=== PATIENT | female | born 1940 | race Caucasian/White ===

== ENCOUNTER 2016-05-22 09:01 | Outpatient (RCR) | payer MEDICARE ==
[~2016-05-22 09:01] MED LIST: ALBU0.8322 IH; ALBU8.5H2 INH; ASP81TEC PO; ATEN-158 GT; ATEN50TA PO; ATN25T PO; ATOR40TA PO; CPH250CIP; DCS100C; DIPH50CA PO; DIPH50CA33 PO; ENAL10TA PO; ENLP10T PO; GABA-488 PO; GBPN400C PO; HCTZ12.5T PO; HYDR-2890 PO; HYDR25TA4 PO; IBUP-30 PO; INSHRV SQ; INSU100V SC; INSU100V5 SQ; INSU100V6 SC; INSU100V8 SQ; LEVO250T11 PO; LEVO500T69 PO; OXC10TCR PO; OXC5T; OXYC-191 PO; OXYC1TAB95 PO; POLY17PO23 PO; PREDNISONE; SENN1TAB76 PO; [UNRECOGNIZED DRUG - OTHER] PO
--- OUTSIDE RECORDS SUMMARY | 2016-05-22 09:05 | XMS REPORT | Continuity of Care Document ---
Author Author [facility] Organization [facility] Address Unknown Phone Unavailable Care Team Providers Care German Teacher Name Role Phone Elvin Clay PCP [phone] Source Comments Some departments are not documenting in the electronic medical record. If you do not see the information that you expected, contact Release of Information in the Health Information Management department at [phone] for further assistance in locating additional records.[facility] Active Allergies and Adverse Reactions Allergen Noted Date Severity Reactions Comments Morphine 09/03/2006 Allergy recorded in SMS: Morphine~Reactions: ITCHING Propoxyphene 09/03/2006 Allergy recorded in SMS: DARVON~Reactions: VOMITING Sulfa (Sulfonamide 09/03/2006 Allergy recorded in SMS: Antibiotics) Sulfa~Reactions: HIVES Current Medications Prescription Sig. Disp. Refills Start End Date Status Date atenolol (TENORMIN) 50 mg Take 50 mg by mouth Active tablet daily. hydrochlorothiazide Take 25 mg by mouth Active (HYDRODIURIL) 25 mg daily. tablet enalapril (VASOTEC) 10 mg Take 10 mg by mouth Active tablet daily. diphenhydrAMINE Take 50 mg by mouth every Active (BENADRYL) 50 mg capsule 6 hours as needed. HYDROcodone/acetaminophen Take 1 Tab by mouth every Active (+) (LORTAB, NORCO) 6 hours as needed for 10/325 mg tablet Pain pregabalin (LYRICA) 50 mg Take 50 mg by mouth three Active capsule times daily. insulin aspart (NOVOLOG) Inject 17 Units into Active 100 unit/mL injection area(s) as directed three times daily with meals. insulin detemir(+) Inject 100 Units into Active (LEVEMIR FLEXTOUCH) 100 area(s) as directed daily unit/mL (3 mL) injection with dinner. pen aspirin 81 mg chewable Take 81 mg by mouth Active tablet daily. tiZANidine (ZANAFLEX) 2 Take 1 Tab by mouth three 90 Tab 1 08/28/19 Active mg tablet times daily as needed. 16 ergocalciferol (VITAMIN Take 1 Cap by mouth every 12 Cap 0 09/12/19 Active D-2) 50,000 unit capsule 7 days. 16 cholecalciferol (VITAMIN Take 2 Tabs by mouth 90 Tab 3 09/12/19 Active D-3) 1,000 units tablet daily. 16 Active Problems No known active problems Social History Tobacco Use Types Packs/Day Years Used Date Former Smoker Last Filed Vital Signs Vital Sign Reading Time Taken Blood Pressure 144/72 08/28/2015 11:17 AM CDT Pulse 67 08/28/2015 11:17 AM CDT Temperature 37.2 C (98.9 F) 08/28/2015 11:17 AM CDT Respiratory Rate - - Height 1.657 m (5' 5.25") 08/28/2015 11:17 AM CDT Weight 99.882 kg (220 lb 3.2 oz) 08/28/2015 11:17 AM CDT Body Mass Index 36.38 08/28/2015 11:17 AM CDT Oxygen Saturation - - Plan of Care Health Maintenance Due Date Last Done Comments Physical (Comprehensive) 1948 Exam Pertussis Vaccine 1952 Tetanus Vaccine 1958 Breast Cancer Screening 1981 Colorectal Cancer 1991 Screening Shingles Vaccine 2001 Osteoporosis Screening 2006 Prevnar/Pneumovax (#1) 2006 Influenza Vaccine 02/14/2016 Results from Last 3 Months Not on file
--- NOTE | 2016-05-24 15:33 | ECHOCARDIOGRAPHY REPORT ---
PROCEDURE PHYSICIAN: BASIM MASSEY DATE OF PROCEDURE: 05/22/2016 TWO DIMENSIONAL ECHOCARDIOGRAM REPORT PRIMARY PHYSICIAN: OTHER PHYSICIAN: REFERRING PHYSICIAN: Dr. Clay ORDERING PHYSICIAN: INDICATION FOR THE PROCEDURE: 1. Coronary artery disease. 2. Hypertension. MEASUREMENTS DERIVED VALUES LV DIAMETER (LAX) NORMALS NORMALS Diastolic 3.4 (3.6-5.2) Eject. Fract. 60% (60%+/-6%) Systolic (2.3-3.9) Diastolic Vol. % Shortening (0.22-0.42) Systolic Vol. Aortic Root IVS THICKNESS Diastolic 1.1 (0.6-1.1) LVPW THICKNESS Diastolic 1.1 (0.6-1.1) LA DIAMETER Systolic 4.5 (2.1-3.7) FINDINGS: 1. Technically difficult study. 2. The left ventricle is normal in size. Endocardium was not well visualized in all segments. Systolic function appeared to be normal. Estimated ejection fraction 60%. 3. The left atrium is dilated. No clot or thrombus were seen within the left atrium. 4. The right atrium and right ventricle are normal in size. No clot or thrombus were seen within the right side. 5. Mitral valve was not well visualized. Mild mitral regurgitation noted by color Doppler flow. No mitral valve prolapse. No mitral valve stenosis. 6. Aortic valve leaflets were not well visualized. There is no significant aortic stenosis or regurgitation seen. 7. Tricuspid valve is normal in morphology with mild tricuspid regurgitation noted by color Doppler flow. Doppler across tricuspid valve estimated pulmonary artery pressure of 41+ right atrial pressure. 8. Pulmonic valve is functioning normally. 9. No pericardial effusion. IN CONCLUSION: 1. Technically difficult study. 2. Normal left ventricular size, endocardium was not well visualized in all segments. Overall systolic function appeared to be preserved. Estimated ejection fraction 60%. 3. Dilated left atrium. 4. Mild mitral and tricuspid regurgitation. 5. Pulmonary hypertension with estimated pulmonary artery pressure of 50 mmHg. Job ID: [id number] Dictated Date: 05/24/2016 13:01:47 Retanner Date: 05/24/2016 15:30:18 / ayaz
[2016-07-23] MEDS ORDERED: OMEG-160 PO (07:59)
[2016-07-23] MEDS ORDERED: ASPI-479 PO (07:59)
[2016-07-23] MEDS ORDERED: LOSA25TA21 PO (07:59)
[2016-07-23] MEDS ORDERED: CHOL20003 PO (07:59)
[2016-07-23] MEDS ORDERED: COLE625T9 PO (07:59)
[2016-07-23] MEDS ORDERED: ROSU10TA PO ×2 (10:59→11:39)
== END 2016-08-20 | disposition home or self-care (01) ==
LOC: CARD 09:01
PROVIDERS: ATTEND Internal Medicine Cardiovascular Disease
DX: I49.3 Ventricular premature depolarization (principal); R00.2 Palpitations; E78.2 Mixed hyperlipidemia; I10 Essential (primary) hypertension; G89.4 Chronic pain syndrome; M54.2 Cervicalgia
CPT/HCPCS: 93225; 93226; 93306

== ENCOUNTER → 2016-06-18 | Outpatient (CLI) | payer MEDICARE ==
[~2016-06-18] MED LIST changes: +ASPI-479 PO; +CHOL20003 PO; +COLE625T9 PO; +LOSA25TA21 PO; +OMEG-160 PO; +ROSU10TA PO
--- OUTSIDE RECORDS SUMMARY | 2016-06-18 12:48 | XMS REPORT | Continuity of Care Document ---
Author Author [facility] Organization [facility] Address Unknown Phone Unavailable Care Team Providers Care Telecom Billing Analyst Name Role Phone Elvin Clay PCP [phone] Source Comments Some departments are not documenting in the electronic medical record. If you do not see the information that you expected, contact Release of Information in the Health Information Management department at [phone] for further assistance in locating additional records.[facility] [...]
--- NOTE | 2016-06-18 13:40 | Diagnostic Imaging Report ---
INDICATION: Cough for one week and shortness of breath. PA and lateral chest obtained at 1:08 p.m. FINDINGS: Heart and mediastinal silhouette are unremarkable. There is dextroscoliotic change. There is no acute infiltrate or pneumothorax or pleural fluid. IMPRESSION: No acute process in the chest. Dictated by: Dictated on workstation # [id number]
== END ==
LOC: RAD 12:44
PROVIDERS: ATTEND Nurse Practitioner Family
DX: R06.02 Shortness of breath (principal); R05 Cough
CPT/HCPCS: 71020

== ENCOUNTER 2016-07-23 06:54 | Day surgery (SDC) | payer MEDICARE ==
[~2016-07-23] VITALS: Ht 162.6 cm; Wt 101.6 kg
[2016-07-23] VITALS (11 sets, daily range): BP systolic 109–170; BP diastolic 58–83
[~2016-07-23 06:54] MED LIST changes: -ASPI-479 PO; -CHOL20003 PO; -COLE625T9 PO; -LOSA25TA21 PO; -OMEG-160 PO; -ROSU10TA PO
--- OUTSIDE RECORDS SUMMARY | 2016-07-23 06:57 | XMS REPORT | Continuity of Care Document ---
Author Author [facility] Organization [facility] Address Unknown Phone Unavailable Care Team Providers Care Pickle Sorter Name Role Phone Elvin Clay PCP [phone] Source Comments Some departments are not documenting in the electronic medical record. If you do not see the information that you expected, contact Release of Information in the Health Information Management department at [phone] for further assistance in locating additional records.[facility] Active Allergies and Adverse Reactions [...]
--- OUTSIDE RECORDS SUMMARY | 2016-07-23 06:58 | XMS REPORT | Continuity of Care Document ---
Author Author [facility] Organization [facility] Address Unknown Phone Unavailable Care Team Providers Care Body Make Up Artist Name Role Phone Elvin Clay PCP [phone] Source Comments Some departments are not documenting in the electronic medical record. If you do not see the information that you expected, contact Release of Information in the Health Information Management department at [phone] for further assistance in locating additional records.[facility] Active Allergies and Adverse Reactions Allergen Noted [...]
[2016-07-23] MEDS ORDERED: NS IV 1000 ML 1,000 ML ONE (06:59)
[2016-07-23] MEDS ORDERED: LIDOCAINE 1% INJ 20 ML (XYLOCAINE) VIAL ONE (06:59)
[2016-07-23] MEDS ORDERED: HEParin (CATH LAB) 2,000 ML IV ONE (07:00)
[2016-07-23] MEDS ORDERED: NS IV 1000 ML 1,000 ML IV SCH ×2 (07:30→10:56)
[2016-07-23 07:31] LABS: MEAN PLATELET VOLUME 10.7 FL (7.4-10.4); RED BLOOD COUNT 5.18 10^6/uL (4.35-5.85); RED CELL DISTRIBUTION WIDTH 12.2 % (10.0-14.5); WHITE BLOOD COUNT 8.6 10^3/uL (4.3-11.0)
[2016-07-23 07:42] LABS: PROTHROMBIN TIME PATIENT 12.5 SEC (12.2-14.7)
[2016-07-23 07:46] LABS: BILIRUBIN,URINE NEGATIVE (NEGATIVE); KETONES,URINE NEGATIVE (NEGATIVE); LEUKOCYTE ESTERASE ,URINE 1+ (NEGATIVE); NITRITE,URINE NEGATIVE (NEGATIVE); PH,URINE 6.5 (5-9); PROTEIN,URINE 1+ (NEGATIVE); UROBILINOGEN,URINE 1 MG/DL (NORMAL)
[2016-07-23 07:52] LABS: ALANINE AMINOTRANSFERASE 49 U/L (0-55); ALBUMIN 3.9 G/DL (3.2-4.5); ANION GAP 13 MMOL/L (5-14); ASPARTATE AMINO TRANSFERASE 48 U/L (5-34); BILIRUBIN,TOTAL 0.9 MG/DL (0.1-1.0); BLOOD UREA NITROGEN 12 MG/DL (7-18); BUN/CREATININE RATIO 14; CALCIUM 9.7 MG/DL (8.5-10.1); CARBON DIOXIDE 27 MMOL/L (21-32); CHLORIDE 101 MMOL/L (98-107); CHOLESTEROL 264 MG/DL (< 200); CREATININE SERUM 0.84 MG/DL (0.60-1.30); DIRECT LDL 184 MG/DL (1-129); GFR ESTIMATED > 60; GLUCOSE 158 MG/DL (70-105); POTASSIUM 3.5 MMOL/L (3.6-5.0); SODIUM 141 MMOL/L (135-145); TOTAL PROTEIN 6.7 G/DL (6.4-8.2); TRIGLYCERIDES 228 MG/DL (<150); VLDL CHOLESTEROL 46 MG/DL (5-40)
[2016-07-23] MEDS ORDERED: CHOL20003 PO (07:59)
[2016-07-23] MEDS ORDERED: OMEG-160 PO (07:59)
[2016-07-23] MEDS ORDERED: LOSA25TA21 PO (07:59)
[2016-07-23] MEDS ORDERED: COLE625T9 PO (07:59)
[2016-07-23] MEDS ORDERED: ASPI-479 PO (07:59)
[2016-07-23] MEDS ORDERED: fentaNYL INJECTION 100 MCG/2 ML AMP ONE (08:04)
[2016-07-23] MEDS ORDERED: MIDAZOLAM 5 MG/5 ML (VERSED) VIAL ONE ×2 (08:04→10:31)
--- NOTE | 2016-07-23 08:32 | Diagnostic Imaging Report ---
INDICATION: Atherosclerotic disease. Compared 06/18. FINDINGS: The heart size upper limit, stable. Tortuous and/or ectatic course of the prominent thoracic aortic shadow is unchanged from prior. No vascular congestion. No edema, pneumonia, effusion or pneumothorax. IMPRESSION: Stable chronic findings Dictated by: Dictated on workstation # [id number]
--- NOTE | 2016-07-23 09:23 | Cardiac Procedure Note-CS/ASA ---
Pre-Procedure Note Pre-Op Procedure Note H&P Reviewed The H&P was reviewed, patient examined and no changes noted. Date H&P Reviewed: Jul 23, 2016 Time H&P Reviewed: :22 Conscious Sedation Pre-Proced Time Reviewed: ASA Class: 3 Airway Mallampati Classification: ([place] appropriate class) I. II. III, IV Lungs Heart ASA score ASA 1: a normal healthy patient ASA 2: a patient with a mild systemic disease (mid diabetes, controlled hypertension, obesity x ASA 3: a patient with a severe systemic disease that limits activity (angina , COPD, prior Myocardial infarction) ASA 4: a patient with an incapacitating disease that is a constant threat to life (CHF, renal failure) ASA 5: a moribund patient not expected to survive 24 hrs. (ruptured aneurysm) ASA 6: a declared brain patient whose organs are being harvested. For emergent operations, add the letter E after the classification Grade 3 Sedation Plan: Analgesia, Amnesia, Plan communicated to team members, Discussed options with patient/fam, Discussed risks with patient/fam Note The patient is an appropriate candidate to undergo the planned procedure, sedation, and anesthesia. The patient immediately re-assessed prior to indication. BASIM MASSEY MD Jul 23, 2016 09:23
--- NOTE | 2016-07-23 10:58 | Discharge Inst-Post CATH ---
Discharge Inst-CATH Post Cardiac Cath D/C Inst Follow Up/Plan Appointment with Dr. De La Paz's office in 2-4 weeks CARDIAC CATH DISCHARGE INSTRUCTIONS *Hold Metformin for 48 hours post heart cath. ACTIVITY * Go Home directly and rest. * Limit activity of the leg (or wrist if it was used) for 7 days including aerobics, swimming, jogging, bicycling, etc. * Restrict stair-climbing for 7 days if possible, if not, climb up with your non -cath leg, then bring together on the same step. * Avoid lifting, pushing, pulling or excessive movement of the affected extremity for 7 days. * Customary sexual activity may be resumed after 2 days-use caution not to use a position that strains or causes pain to the affected extremity. * No driving for 24 hours. * NO SMOKING. * Avoid straining for bowel movements for 7 days. * Gentle walking on level ground is allowed. * Returning to work will depend on the type of procedure and the results. Your doctor will discuss this with you. CALL YOUR DOCTOR FOR ANY OF THE FOLLOWING: *If bleeding from the puncture site occurs- Apply gentle pressure to site with clean cloth and call your doctor or EMS. * If a knot or lump forms under the skin, increases in size, or causes pain. * If bruising appears to be worsening or moving further down your leg instead of disappearing. * Temperature above 101 F. CARE OF YOUR GROIN INCISION; * Bruising or purple discoloration of the skin near the puncture site is common. * You may shower only, no bathtub bathing for 5 days. Be careful to avoid slipping as your leg may feel stiff. * If a closure device was used on your femoral artery, please see the attached guide regarding care of the device and your leg. * REMOVE the dressing from your groin the next day after your procedure in the shower. CARE OF YOUR WRIST INCISION; * Bruising or purple discoloration of the skin near the puncture site is common. * You may shower. * DO NOT submerge wrist. * Remove dressing in 24 hours. BASIM DE LA PAZ MD Jul 23, 2016 10:58
[2016-07-23] MEDS ORDERED: ROSU10TA PO ×2 (10:59→11:39)
[2016-07-23] MEDS ORDERED: PATIENT MAY USE OWN MEDS, ALL PO SCH (11:00)
[2016-07-23] MEDS ORDERED: HEParin (CATH LAB) 1,000 ML IV ONE (12:01)
--- NOTE | 2016-07-24 11:55 | DISCHARGE SUMMARY ---
PROCEDURE PHYSICIAN: BASIM MASSEY DATE OF PROCEDURE: 07/23/2016 REFERRING PHYSICIAN: Dr. Shanthi Clay BRIEF HISTORY: Mrs. Angel is a 76-year-old lady with history of hypertension, hyperlipidemia, diabetes mellitus. She had an abnormal stress test with anterior wall ischemia scheduled for left heart catheterization, possible PTCA. PROCEDURE NOTE: After explaining the procedure to the patient, all pros and cons were explained. All questions were answered. The patient signed a consent, then she was placed on the cardiac catheterization laboratory. 6-Russian sheath was placed in the right femoral artery. I advanced a Wesley left catheter to the left coronary system. Multiple views were obtained. I attempted to advance the right coronary Wesley right catheter. I had difficulties with advancing the wire. I was able after manipulation advanced it to the right coronary system. Then I used a long J-wire as an exchange wire. Pigtail catheter advanced to the left ventricular cavity. Left ventriculogram was done. Pullback LV to aorta was done. The aortic arch angiogram was done. Then it was pulled down to the abdominal aorta just above the bifurcation and an abdominal aortogram was done. At the end of the procedure, sheath was removed. Mynx device deployed. Hemostasis achieved. FINDINGS: HEMODYNAMICS: LV pressure 116/12, end diastolic pressure of 12, aortic pressure 116/42, mean of 65. No significant gradient across the aortic valve. ANATOMY: 1. Left main coronary artery is bifurcating to left anterior descending and left circumflex artery with no obstructive disease. 2. Left anterior descending artery is totally occluded at the midportion, getting filled by collateral from the right coronary system. 3. Left circumflex artery: The left circumflex artery is moderate in size. Nondominant artery with no significant obstructive disease. 4. Right coronary artery: The right coronary artery is dominant artery, calcified artery with mild disease, filling the LAD retrograde by collaterals. 5. Left ventriculogram was done in the right anterior oblique position left ventricle is normal in size with normal contractility. Estimated ejection fraction 60%. 6. Aortic arch angiogram: Aortic arch angiogram was done in 2 separate injection. There is hypertensive changes in the thoracic aorta calcification in the right innominate artery, below the origin of the right carotid artery. Left carotid artery has mild calcification. The subclavian artery has mild calcification proximally; did not appear to be obstructive disease. 7. Abdominal aortogram: Abdominal aortogram was done in AP position. Abdominal aorta is normal in size. Hypertensive changes, origin of the renal arteries appeared normal. Superior and inferior mesenteric artery were not well visualized. The bifurcation showed hypertensive changes of tortuosity in the iliac artery, nonobstructive disease. CONCLUSION: 1. Calcified coronary system overall with total occlusion of the mid LAD, reconstructed by collaterals from the right coronary system. Otherwise mild coronary artery disease. 2. Normal left ventricular size with normal contractility anterior wall is julia normally with estimated ejection fraction 60%. 3. Hypertensive changes in the thoracic and abdominal aorta with calcification at the origin of the right carotid artery. 4. Some tortuosity in the iliac artery, no obstructive disease. DISCUSSION AND RECOMMENDATION: Mrs. Angel has significant coronary artery disease. Totally occluded LAD, appeared to have silent [place] in the past. She is currently asymptomatic, although her exercise ability is very limited due to her comorbid condition, I recommend maximizing medical therapy, continue to monitor. Weight loss is recommended. If she becomes symptomatic we will consider referring her for high-risk intervention of the LAD. FINAL DIAGNOSES: 1. Coronary artery disease. 2. Hypertension. 3. Hyperlipidemia. 4. Diabetes mellitus Job ID: [id number] Dictated Date: 07/23/2016 11:05:06 Cotton Agent Date: 07/24/2016 11:51:46/daniel
== END 2016-07-23 15:45 | disposition home or self-care (01) ==
LOC: CATH 06:54
PROVIDERS: ATTEND Internal Medicine Cardiovascular Disease
DX: R94.39 Abnormal result of other cardiovascular function study (principal); I25.10 Atherosclerotic heart disease of native coronary artery without angina pectoris; I25.82 Chronic total occlusion of coronary artery; I25.84 Coronary atherosclerosis due to calcified coronary lesion; I10 Essential (primary) hypertension; E11.9 Type 2 diabetes mellitus without complications; E78.5 Hyperlipidemia, unspecified; I70.0 Atherosclerosis of aorta; Z79.899 Other long term (current) drug therapy; Z79.4 Long term (current) use of insulin
CPT/HCPCS: 36221; 36415; 71010; 75625; 80053; 80061; 81000; 85027; 85610; 87081; 87088; 93005; 93458

== ENCOUNTER 2016-10-27 13:23 | Outpatient (CLI) | payer MEDICARE ==
[~2016-10-27] VITALS: Ht 162.6 cm; Wt 101.6 kg
[~2016-10-27 13:23] MED LIST changes: +ASPI-479 PO; +CHOL20003 PO; +COLE625T9 PO; +LOSA25TA21 PO; +OMEG-160 PO; +ROSU10TA PO
[2016-10-27] MEDS ORDERED: BUPIVACAINE 0.5% 30 ML (SENSORCAINE) VIAL ONE (13:25)
[2016-10-27] MEDS ORDERED: LIDOCAINE 1% INJ 20 ML (XYLOCAINE) VIAL ONE (13:25)
[2016-10-27] MEDS ORDERED: TRIAMCINOLONE ACET (KENALOG-40) 40 MG/ML 1 ML VIAL ONE (13:25)
[2016-10-27 13:43] VITALS: BP 142/61
[2016-10-27 14:26] VITALS: BP 133/68
--- NOTE | 2016-10-27 14:55 | Pain Medicine-Procedure ---
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 The patient was then brought to the procedure room and placed in the prone position. A time out was performed. The back was prepped with antiseptic solution and under fluoroscopic guidance the patient's sacral ala on the right side was identified. 2 mL's of 1% Lidocaine was used to anesthetized the skin over the sacral ala and a 22 gauge 3.5 inch needle was advanced towards the target until bone was contacted. The junction of the superior articular processes and the transverse processes at L3-L5 on the right were then identified and the skin overlying these targets was anesthetized with 1% lidocaine. Next a 22 gauge 3.5 inch needle was inserted through the skin to the level of the lumbar medial branches under radiographic guidance. Next, after negative aspiration, a mixture of 2 mL's Bupivacaine 0.5% and 80 mg Kenalog was injected in 4 equal aliquots. CSF was negative, Paresthesia was negative, Heme was negative. All needles were then flushed with 1% lidocaine and then removed. Attention was then directed to the right sacroiliac joint which was identified under fluoroscopic guidance. The skin overlying the posterior inferior one third of the sacroiliac joint was anesthetized with 1 percent lidocaine and a 22 -gauge 3-1/2 inch needle was inserted and advanced into the joint. Following negative aspiration a total of 40 mg of Kenalog and 2 mL of 0.25 percent bupivacaine was injected. Needle was flushed with lidocaine and removed. Sterile bandage was applied. Patient tolerated the procedures well with no apparent complications. Complications None GALE GREGORY MD October 27, 2016 2:55 pm
== END 2016-10-27 14:28 | disposition home or self-care (01) ==
LOC: CARD 13:23
PROVIDERS: ATTEND Pain Medicine Pain Medicine
DX: M53.3 Sacrococcygeal disorders, not elsewhere classified (principal); M47.816 Spondylosis without myelopathy or radiculopathy, lumbar region; G89.4 Chronic pain syndrome; Z79.4 Long term (current) use of insulin
CPT/HCPCS: 27096; 64493; 64494; 64495

== ENCOUNTER → 2016-11-12 | Outpatient (CLI) | payer MEDICARE ==
[~2016-11-12] MED LIST changes: +RT-ALBUTEROL SULF 2.5 MG/3 ML PRE-MIX VIAL IH ONE
== END ==
LOC: RT 13:27
PROVIDERS: ATTEND Nurse Practitioner Family
DX: J45.909 Unspecified asthma, uncomplicated (principal)
CPT/HCPCS: 94060; 94640; 94726; 94729

== ENCOUNTER 2017-08-03 05:39 | Outpatient (CLI) | payer MEDICARE ==
[~2017-08-03] VITALS: Ht 162.6 cm; Wt 101.6 kg
[~2017-08-03 05:39] MED LIST changes: -RT-ALBUTEROL SULF 2.5 MG/3 ML PRE-MIX VIAL IH ONE
[2017-08-03] MEDS ORDERED: SPIR25TA3 PO (16:45)
[2017-08-03] MEDS ORDERED: ALBU2.5V4 IH (16:45)
[2017-08-03] MEDS ORDERED: ATEN50TA PO (16:45)
[2017-08-03] MEDS ORDERED: HYDR-3820 PO (16:45)
[2017-08-03] MEDS ORDERED: DIPH50CA PO (16:45)
[2017-08-03] MEDS ORDERED: CHOL10003 PO (16:45)
[2017-08-03] MEDS ORDERED: CETI10TA17 PO (16:45)
[2017-08-03] MEDS ORDERED: ROSU10TA26 PO (16:45)
[2017-08-03] MEDS ORDERED: RANO10003 PO (16:45)
[2017-08-03] MEDS ORDERED: AMLO5TAB2 PO (16:45)
[2017-08-03] MEDS ORDERED: FURO20TA4 PO (16:45)
[2017-08-03] MEDS ORDERED: INSU100I29 SQ (16:45)
[2017-08-03] MEDS ORDERED: MONT10TA24 PO (16:45)
[2017-08-03] MEDS ORDERED: INSU100V16 SQ (16:45)
== END 2017-08-03 16:50 ==
LOC: PREOP 05:39
PROVIDERS: ATTEND Specialist
DX: Z01.818 Encounter for other preprocedural examination (principal); H26.9 Unspecified cataract

== ENCOUNTER 2017-08-07 08:18 | Day surgery (SDC) | payer MEDICARE ==
[~2017-08-07] VITALS: Ht 162.6 cm; Wt 101.6 kg
[~2017-08-07 08:18] MED LIST changes: +ALBU2.5V4 IH; +AMLO5TAB2 PO; +CETI10TA17 PO; +CHOL10003 PO; +FURO20TA4 PO; +HYDR-3820 PO; +INSU100I29 SQ; +INSU100V16 SQ; +MONT10TA24 PO; +RANO10003 PO; +ROSU10TA26 PO; +SPIR25TA3 PO
--- OUTSIDE RECORDS SUMMARY | 2017-08-07 08:21 | XMS REPORT | Continuity of Care Document ---
Author Author [facility] Organization [facility] Address Unknown Phone Unavailable Care Team Providers Care Cupola Patcher Helper Name Role Phone [employer] Unavailable Unavailable Problems Medications Allergies, Adverse Reactions, Alerts Immunizations Results Vital Signs Encounters Location Location Details Encounter Type Encounter Number Reason For Visit Attending Provider ADM Date DC Date Status Source OUTPATIENT [id number] [facility] 01/06/2017 01/06/2017 Active [facility] EXT RECOVERY [id number] [facility] 02/11/2017 02/12/2017 Active [facility] EXT RECOVERY [id number] [facility] 03/23/2017 03/24/2017 Active [facility] OUTPATIENT [id number] [facility] 05/19/2017 Active [facility] OUTPATIENT [id number] [facility] 06/09/2017 Active [facility] O Active [facility] Procedures Plan of Care Social History Assessment and Plan Family History Advance Directives Functional Status
--- OUTSIDE RECORDS SUMMARY | 2017-08-07 08:22 | XMS REPORT | Clinical Summary ---
Author Author [facility] Organization [facility] Address Unknown Phone Unavailable Care Team Providers Care Tissue Specialist Name Role Phone Matthew Burch MD Unavailable Shanthi Clay MD PCP Keya De La Paz MD 21 Source Comments Some departments are not documenting in the electronic medical record. If you do not see the information that you expected, contact Release of Information in the Health Information Management department at [phone] for further assistance in locating additional records.[facility] Allergies Active Allergy Reactions Severity Noted Date Comments Erythromycin UNKNOWN Low 12/30/2016 Morphine 09/03/2006 Allergy recorded in SMS: Morphine~Reactions: ITCHING Propoxyphene 09/03/2006 Allergy recorded in SMS: DARVON~Reactions: VOMITING Sulfa (Sulfonamide 09/03/2006 Allergy recorded in SMS: Antibiotics) Sulfa~Reactions: HIVES Current Medications Prescription Sig. Disp. Refills Start End Date Status Date atenolol (TENORMIN) 50 mg Take 50 mg by mouth Active tablet daily. hydrochlorothiazide Take 25 mg by mouth Active (HYDRODIURIL) 25 mg daily. tablet diphenhydrAMINE Take 50 mg by mouth every Active (BENADRYL) 50 mg capsule 6 hours as needed. insulin aspart (NOVOLOG) Inject 17 Units into Active 100 unit/mL injection area(s) as directed three times daily with meals. insulin detemir(+) Inject under the skin Active (LEVEMIR FLEXTOUCH) 100 twice daily. Inject 10 unit/mL (3 mL) injection units every morning and pen 50 units every evening aspirin 81 mg chewable Take 81 mg by mouth Active tablet daily. cholecalciferol (VITAMIN Take 2 Tabs by mouth 90 Tab 3 09/12/19 Active D-3) 1,000 units tablet daily. 16 HYDROcodone/acetaminophen Take 1 Tab by mouth twice Active (+) (NORCO) 10/325 mg daily Indications: PAIN tabletIndications: PAIN rosuvastatin (CRESTOR) 10 Take 10 mg by mouth Active mg tablet daily. montelukast (SINGULAIR) Take 10 mg by mouth as Active 10 mg tablet Needed. cetirizine (ZYRTEC) 10 mg Take 10 mg by mouth as Active tablet Needed. furosemide (LASIX) 20 mg Take 20 mg by mouth every Active tablet morning. nitroglycerin (NITROSTAT) Place 0.4 mg under tongue Active 0.4 mg tablet every 5 minutes as needed for Chest Pain. Max of 3 tablets, call 911. albuterol 0.083% Inhale 1 Vial solution by Active (PROVENTIL; VENTOLIN) 2.5 nebulizer as directed mg /3 mL (0.083 %) every 6 hours as needed nebulizer solution for Wheezing or Shortness of Breath. [place]-3 Acid Ethyl Esters Take 1 g by mouth three Active 1 gram cap times daily. amLODIPine (NORVASC) 5 mg Take 5 mg by mouth daily. Active tablet losartan (COZAAR) 25 mg Take 25 mg by mouth Active tablet daily. ranolazine ER (RANEXA) Take 1 tablet by mouth 180 tablet 3 03/24/20 Active 1,000 mg twice daily. 17 tabletIndications: Coronary artery disease involving [place] coronary artery of [place] heart, angina presence unspecified albuterol (VENTOLIN HFA) Inhale 2 puffs by mouth Active 90 mcg/actuation inhaler into the lungs every 6 hours as needed for Wheezing or Shortness of Breath. Shake well before use. spironolactone Take 1 tablet by mouth 90 tablet 3 06/09/20 Active (ALDACTONE) 25 mg tablet daily. Take with food. 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 Otherwise mild coronary artery disease. Normal LV size with normal contractility anterior wall is julia normally with estimated EF of 60%. Hypertensive changes in the thoracic and abdominal aorta with calcification at the origin of the right carotid artery. Some tortuosity in the iliac artery, no obstructive disease. 05/28/16: Lexiscan myoview stress test ([facility]ia [facility]) - breast attenuation affecting the quality of the images with mild ischemia at the mid to apical anterior wall. Normal LV size with normal contractility. Calculated EF 65%. 01/07/2017 unsuccessful attempt at BONDING MOLDER of the LAD with antegrade approach. returning feb 09 to attempt retrograde approach 03/23/17 - unsuccessful attempt at PCI of BONDING MOLDER of LAD. Started on Ranexa Essential hypertension Hyperlipidemia Insulin dependent diabetes mellitus (HCC) Encounters Date Type Specialty Care Team Description 07/03/2017 Documentation Cardiology Tina Toscano RN Labs Only (BMP) 06/09/2017 Office Visit Cardiology Dakota Contreras MD Cardiac Eval (2 month hosp. f/u Cardiac Catheterization, PCI of BONDING MOLDER of LAD) 06/09/2017 Telephone Cardiology Tina Toscano RN Lab Request ( repeat BMP due 06/16 - faxed order to [facility] in [place], [place]) from Last 3 Months Social History Tobacco Use Types Packs/Day Years Used Date Former Smoker Cigarettes 06/15/1960 - 06/15/1987 Smokeless Tobacco: Never Used Sex Assigned at Date Recorded Not on file Last Filed Vital Signs Vital Sign Reading Time Taken Blood Pressure 108/58 06/09/2017 10:30 AM SHIRT FINISHER Pulse 59 06/09/2017 10:30 AM SHIRT FINISHER Temperature 36.8 C (98.2 F) 03/24/2017 4:00 AM CDT Respiratory Rate - - Oxygen Saturation 95% 03/24/2017 6:00 AM CDT Inhaled Oxygen - - Concentration Weight 101.6 kg (224 lb) 06/09/2017 10:30 AM SHIRT FINISHER Height 162.6 cm (5' 4") 06/09/2017 10:30 AM SHIRT FINISHER Body Mass Index 38.45 06/09/2017 10:30 AM SHIRT FINISHER Plan of Treatment Health Maintenance Due Date Last Done Comments PHYSICAL (COMPREHENSIVE) 1948 EXAM PERTUSSIS VACCINE 1952 TETANUS VACCINE 1958 DILATED EYE EXAM 1959 FOOT EXAM 1959 HBA1C 1959 MICROALBUMIN 1959 COLORECTAL CANCER 1991 SCREENING SHINGLES VACCINE 2001 OSTEOPOROSIS SCREENING 2006 PREVNAR/PNEUMOVAX (#1) 2006 INFLUENZA VACCINE 01/13/2017 Results * BASIC METABOLIC PANEL (06/26/2017) Component Value Ref Range Sodium 135 Potassium 3.8 Chloride 95 CO2 33.0 Blood Urea Nitrogen 17 Creatinine 0.9 Glucose 279 (H) Calcium 9.5 eGFR Non 65 eGFR Anion Gap 11 Specimen Performing Laboratory Blood [facility] [place] [address] , [address] [place] [address] from Last 3 Months
--- OUTSIDE RECORDS SUMMARY | 2017-08-07 08:22 | XMS REPORT | Encounter Summary ---
Author Author [facility] Organization [facility] Address Unknown Phone Unavailable Care Team Providers Care Blender Machine Operator Name Role Phone Matthew Burch MD Unavailable Shanthi Clay MD PCP Keya De La Paz MD 21 Reason for Visit * Reason Comments Cardiac Eval 2 month hosp. f/u Cardiac Catheterization, PCI of RUBBER AND POUNDER of LAD Encounter Details Date Type Department Care Team Description 06/09/2017 Office Visit [facility] Cardiology Dakota Contreras MD Cardiac Eval (2 month [address] hosp[address] f/u Cardiac [address] Catheterization, [place] [address] [place] [address] RUBBER AND POUNDER of LAD) [phone] Social History Tobacco Use Types Packs/Day Years Used Date Former Smoker Cigarettes 06/15/1960 - 06/15/1987 Smokeless Tobacco: Never Used Sex Assigned at Date Recorded Not on file as of this encounter Last Filed Vital Signs Vital Sign Reading Time Taken Blood Pressure 108/58 06/09/2017 10:30 AM FUEL PILOT ENGINEER Pulse 59 06/09/2017 10:30 AM FUEL PILOT ENGINEER Temperature - - Respiratory Rate - - Oxygen Saturation - - Inhaled Oxygen - - Concentration Weight 101.6 kg (224 lb) 06/09/2017 10:30 AM FUEL PILOT ENGINEER Height 162.6 cm (5' 4") 06/09/2017 10:30 AM FUEL PILOT ENGINEER Body Mass Index 38.45 06/09/2017 10:30 AM FUEL PILOT ENGINEER in this encounter Instructions * Patient Instructions - Caitlyn Downing APRN-C - 06/09/2017 11:00 AM FUEL PILOT ENGINEER Start taking spironolactone 25 mg daily. Stop taking potassium Check blood work in 1 week. in this encounter Progress Notes * Dakota Contreras MD - 06/09/2017 11:00 AM FUEL PILOT ENGINEER Formatting of this note may be different from the original. Date of Service: 06/09/2017 aSsha Angel is a [address] HPI [address] Contreras and I had the pleasure of seeing Sasha Angel for post hospital cardiac follow-up. She is a 76-year-old with history of coronary disease. She has a chronic total occlusion of the right coronary artery. She was referred by an outside diagnostic radiologic technologist for intervention. She has had 3 attempts at revascularization, all of which have been unsuccessful. Her last admission was on March 23. At discharge she was initiated on Ranexa and is now on 1000mg twice a day. She states her anginal symptoms have improved dramatically however have not resolved completely. She continues have some shortness of breath and wheezing that is unchanged. She has also noticed an increase in edema and thinks she may need further diuresis however she is having trouble taking potassium supplementation with the Lasix. She had one episode of hypotension and bradycardia when she got up out of bed one night. She also noted that her blood sugar was low at that time. She has not had any recurrent symptoms. She is getting ready to restart physical therapy. Vitals: 06/09/17 1030 BP: 108/58 Pulse: 59 Weight: 101.6 kg (224 lb) Height: 1.626 m (5' 4") Body mass index is 38.45 kg/(m^2). 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 Otherwise mild coronary artery disease. Normal LV size with normal contractility anterior wall is julai normally with estimated EF of 60%. Hypertensive [...] Calculated EF 65%. 01/07/2017 unsuccessful attempt at RUBBER AND POUNDER of the LAD with antegrade approach. returning feb 09 to attempt retrograde approach 03/23/17 - unsuccessful attempt at PCI of RUBBER AND POUNDER of LAD. Started on Ranexa Review of Systems Constitution: Negative. HENT: Negative. Eyes: Negative. Cardiovascular: Negative. Respiratory: Negative. Endocrine: Negative. Hematologic/Lymphatic: Negative. Skin: Negative. Musculoskeletal: Negative. Gastrointestinal: Negative. Genitourinary: Negative. Neurological: Negative. Psychiatric/Behavioral: Negative. Allergic/Immunologic: Negative. Physical Exam General Appearance: no acute distress Skin: warm & intact HEENT: unremarkable Neck Veins: neck veins are flat & not distended Carotid Arteries: no bruits Chest Inspection: chest is normal in appearance Auscultation/Percussion: lungs clear to auscultation, no rales, rhonchi, or wheezing Cardiac Rhythm: regular rhythm & normal rate Cardiac Auscultation: Normal S1 & S2, no S3 or S4, no rub Murmurs: no cardiac murmurs Extremities: 1+ bilateral lower extremity edema; 2+ symmetric distal pulses Abdominal Exam: soft, non-tender, no masses, bowel sounds normal Liver & Spleen: no organomegaly Neurologic Exam: oriented to time, place and person; no focal neurologic deficits Psychiatric: Normal mood and affect. Behavior is normal. Judgment and thought content normal. Problems Addressed Today Encounter Diagnoses Name Primary? 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 Angel has a following issues: 1. Coronary artery disease. She has a chronic occlusion of the right coronary artery. She has had attempted revascularization on 3 occasions, all of which have been unsuccessful. She has had symptomatic improvement with Ranexa therefore we will plan on continuing medical therapy at this point. She also needs to increase her activity and it plans to get restarted in physical therapy. She needs ongoing risk factor modification. 2. Edema. She needs an increase in her diuretic but she has not tolerated potassium supplementation. I will add Spironolactone 25 mg daily in addition to Lasix 20 mg daily and she can stop the potassium. We will check a BMP in a week. She should continue to follow with her outside diagnostic radiologic technologist and we will see her on an as-needed basis. Thank you for allowing us to participate in care of this pleasant individual. If you have questions or concerns please not hesitate to contact us. SHREYA Alexandra Sasha was seen in the office today for follow-up and states that overall she has been feeling better. She has quite a bit less discomfort in her chest since initiating Ranexa. We did spend quite a bit of time reviewing her last cardiac catheterization as well as discussing the current pain plan. We will plan to refer her to cardiac rehab to increase her activity make some medication adjustments. Physical Exam GEN: alert and oriented, no acute distress HEENT: unremarkable, EOMI, PERRL CHEST: Clear to auscultation bilaterally without focal rales, wheezes or rhonchi CV: Reg rhythm, nml rate; nml S1 & S2, no S3 or S4; no rub; no murmurs ABD: soft, nontender, BS+, no masses or bruits, no organomegaly EXT: 1+PE bilaterallhy, 2+ distal pulses NEURO: nonfocal Mood and Affect: appropriate She is going to be following back with Dr. De La Paz her primary diagnostic radiologic technologist. We will plan to see her back as needed. Thanks for allowing us to participate in her care. Current Medications (including today's revisions) albuterol (VENTOLIN HFA) 90 mcg/actuation inhaler Inhale 2 puffs by mouth into the lungs every 6 hours as needed for Wheezing or Shortness of Breath. Shake well before use. albuterol 0.083% (PROVENTIL; VENTOLIN) 2.5 mg /3 mL (0.083 %) nebulizer solution Inhale 1 Vial solution by nebulizer as directed every 6 hours as needed for Wheezing or Shortness of Breath. amLODIPine (NORVASC) 5 mg tablet Take 5 mg by mouth daily. aspirin 81 mg chewable tablet Take 81 mg by mouth daily. atenolol (TENORMIN) 50 mg tablet Take 50 mg by mouth daily. cetirizine (ZYRTEC) 10 mg tablet Take 10 mg by mouth as Needed. cholecalciferol (VITAMIN D-3) 1,000 units tablet Take 2 Tabs by mouth daily. diphenhydrAMINE (BENADRYL) 50 mg capsule Take 50 mg by mouth every 6 hours as needed. furosemide (LASIX) 20 mg tablet Take 20 mg by mouth every morning. hydrochlorothiazide (HYDRODIURIL) 25 mg tablet Take 25 mg by mouth daily. HYDROcodone/acetaminophen(+) (NORCO) 10/325 mg tablet Take 1 Tab by mouth twice daily Indications: PAIN insulin aspart (NOVOLOG) 100 unit/mL injection Inject 17 Units into area(s) as directed three times daily with meals. insulin detemir(+) (LEVEMIR FLEXTOUCH) 100 unit/mL (3 mL) injection pen Inject under the skin twice daily. Inject 10 units every morning and 50 units every evening losartan (COZAAR) 25 mg tablet Take 25 mg by mouth daily. montelukast (SINGULAIR) 10 mg tablet Take 10 mg by mouth as Needed. nitroglycerin (NITROSTAT) 0.[address] 0.4 mg under tongue every 5 minutes as needed for Chest Pain. Max of 3 tablets, call 911. [place]-3 Acid Ethyl Esters 1 gram cap Take 1 g by mouth three times daily. ranolazine ER (RANEXA) 1,000 mg tablet Take 1 tablet by mouth twice daily. rosuvastatin (CRESTOR) 10 mg tablet Take 10 mg by mouth daily. spironolactone (ALDACTONE) 25 mg tablet Take 1 tablet by mouth daily. Take with food. 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
--- OUTSIDE RECORDS SUMMARY | 2017-08-07 08:22 | XMS REPORT | Encounter Summary ---
Author Author [facility] Organization [facility] Address Unknown Phone Unavailable Care Team Providers Care Soils Analyst Name Role Phone Matthew Burch MD Unavailable Shanthi Clay MD PCP Keya De La Paz MD 21 Reason for Visit * Reason Comments Labs Only BMP Encounter Details Date Type Department Care Team Description 07/03/2017 Documentation [facility] Cardiology Tina Toscano RN Labs Only (BMP) [address] [place] [address] Social History Tobacco Use Types Packs/Day Years Used Date Former Smoker Cigarettes 06/15/1960 - 06/15/1987 Smokeless Tobacco: Never Used Sex Assigned at Date Recorded Not on file as of this encounter Plan of Treatment Not on fileas of this encounter Results * BASIC METABOLIC PANEL (06/26/2017) Component Value Ref Range Sodium 135 Potassium 3.8 Chloride 95 CO2 33.0 Blood Urea Nitrogen 17 Creatinine 0.9 Glucose 279 (H) Calcium 9.5 eGFR Non 65 eGFR Anion Gap 11 Specimen Performing Laboratory Blood [facility] [place] [address] [facility] , [address] [place] [address] in this encounter Visit Diagnoses Diagnosis Essential hypertension Unspecified essential hypertension
--- OUTSIDE RECORDS SUMMARY | 2017-08-07 08:22 | XMS REPORT | Encounter Summary ---
Author Author [facility] Organization [facility] Address Unknown Phone Unavailable Care Team Providers Care Physical Therapy Assistant Name Role Phone Matthew Burch MD Unavailable Shanthi Clay MD PCP Keya De La Paz MD 21 Reason for Visit * Reason Comments Lab Request repeat BMP due 2 - faxed order to [facility] in [place], [place] Encounter Details Date Type Department Care Team Description 06/09/2017 Telephone [facility] Cardiology Tina Toscano RN Lab Request (repeat BMP [address] due 06/16 - faxed order to [facility] [address] [facility] in [place], [place]) [place] [address] Social History Tobacco Use Types Packs/Day Years Used Date Former Smoker Cigarettes 06/15/1960 - 06/15/1987 Smokeless Tobacco: Never Used Sex Assigned at Date Recorded Not on file as of this encounter Miscellaneous Notes * Telephone Encounter - Tina Toscano RN - 06/09/2017 12:21 PM FAMILY CONSUMER SCIENCE TEACHER BMP order faxed to [facility] in [place], [place] - due / (one week after starting spironolactone). . Fax confirmation received. in this encounter Plan of Treatment Not on fileas of this encounter Visit Diagnoses Not on filein this encounter
--- OUTSIDE RECORDS SUMMARY | 2017-08-07 08:25 | XMS REPORT | CCD ---
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 Role Phone PP Unavailable CCM Unavailable Summary Purpose Interface Exchange Insurance Providers Payer name Policy type / Coverage type Covered libertarian ID Effective Begin Date Effective End Date WPS Medicare Part B Medicare Part B [id number] Unknown Unknown AARP Medicare Part B [id number] Unknown Unknown Family history Mother Diagnosis Age At Onset No Family Disease Entered N/A Social History Social History Element Codes Description Effective Dates Marital status Unknown Tonie 12/21/2014 Number of children Unknown 1 12/21/2014 Employment Unknown Retired 12/21/[address]: 6961418 Quit over 10 years ago 1988 12/21/2014 Allergies, Adverse Reactions, Alerts Substance Reaction Codes Entered Date Inactivated Date Status MORPHINE SULFATE pruritis RxNorm: 7052 12/21/2014 No Inactive Date Active Past Medical History Illness Codes Condition Status Onset Date Resolved Date Essential (primary) hypertension ICD-9: 401.1 ICD-10: I10 Active 08/13/2016 Unknown Other allergic rhinitis ICD-9: 477.8 ICD-10: J30.89 Active 06/17/2016 Unknown Type 2 diabetes mellitus with hyperglycemia ICD-9: 250.00 ICD-10: E11.65 Active 12/20/2014 Unknown Mixed hyperlipidemia ICD-9: 272.2 ICD-10: E78.2 Active 11/14/2015 Unknown Cough ICD-9: 786.2 ICD-10: R05 Active 06/24/2016 Unknown Essential (primary) hypertension ICD-9: 401.9 ICD-10: I10 Active 12/20/2014 Unknown Acute laryngopharyngitis ICD-9: 465.0 ICD-10: J06.0 Active 06/17/2016 Unknown Acute nasopharyngitis [common cold] ICD-9: 460 ICD-10: J00 Active 05/06/2016 Unknown Encounter for immunization ICD-9: V04.81 ICD-10: Z23 Active 02/27/2016 Unknown Spontaneous ecchymoses ICD-9: 782.7 ICD-10: R23.3 Active 02/27/2016 Unknown Acute recurrent maxillary sinusitis ICD-9: 461.0 ICD-10: J01.01 Active 01/27/2016 Unknown Dysuria ICD-9: 788.1 ICD-10: R30.0 Active 12/12/2015 Unknown Urinary tract infection, site not specified ICD-9: 599.0 ICD-10: N39.0 Active 11/05/2015 Unknown Acute maxillary sinusitis, unspecified ICD-9: 461.0 ICD-10: J01.00 Active 07/16/2015 Unknown Acute bronchitis, unspecified ICD-9: 466.0 ICD-10: J20.9 Active 04/18/2015 Unknown Diabetes Unknown Active 12/21/2014 Unknown Hypertension Unknown Active 12/21/2014 Unknown DIABETES TYPE II ICD-9 : 250.00 Active 12/20/2014 Unknown ESSENTIAL HYPERTENSION ICD-9: 401.9 Active 12/20/2014 Unknown Peripheral neuropathy ICD-9: 356.9 Active 12/20/2014 Unknown Problems Condition Codes Effective Dates Condition Status Essential (primary) hypertension ICD-9: 401.1 ICD-10: I10 08/13/2016 Active Other allergic rhinitis ICD-9: 477.8 ICD-10: J30.89 06/17/2016 Active Type 2 diabetes mellitus with hyperglycemia ICD-9: 250.00 ICD-10: E11.65 12/20/2014 Active Mixed hyperlipidemia ICD-9: 272.2 ICD-10: E78.2 11/14/2015 Active Cough ICD-9: 786.2 ICD-10: R05 06/24/2016 Active Essential (primary) hypertension ICD-9: 401.9 ICD-10: I10 12/20/2014 Active Acute laryngopharyngitis ICD-9: 465.0 ICD-10: J06.0 06/17/2016 Active Acute nasopharyngitis [common cold] ICD-9: 460 ICD-10: J00 05/06/2016 Active Encounter for immunization ICD-9: V04.81 ICD-10: Z23 02/27/2016 Active Spontaneous ecchymoses ICD-9: 782.7 ICD-10: R23.3 02/27/2016 Active Acute recurrent maxillary sinusitis ICD-9: 461.0 ICD-10: J01.01 01/27/2016 Active Dysuria ICD-9: 788.1 ICD-10: R30.0 12/12/2015 Active Urinary tract infection, site not specified ICD-9: 599.0 ICD-10: N39.0 11/05/2015 Active Acute maxillary sinusitis, unspecified ICD-9: 461.0 ICD-10: J01.00 07/16/2015 Active Acute bronchitis, unspecified ICD-9: 466.0 ICD-10: J20.9 04/18/2015 Active Diabetes Unknown 12/21/2014 Active Hypertension Unknown 12/21/2014 Active DIABETES TYPE II ICD-9 : 250.00 12/20/2014 Active ESSENTIAL HYPERTENSION ICD-9: 401.9 12/20/2014 Active Peripheral neuropathy ICD-9: 356.9 12/20/2014 Active Medications Medication Codes Instructions Start Date Stop Date Status Fill Instructions Levemir 100 unit/mL subcutaneous solution RxNorm: 731070 10 Unit(s) SQ QAM 07/27/2017 No Stop Date Active Levemir 100 unit/mL subcutaneous solution RxNorm: 961392 50 Unit(s) SQ QHS 07/27/2017 No Stop Date Active hydrocodone 10 mg-acetaminophen 325 mg tablet RxNorm: 620859 1 Tablet(s) PO Q6 as needed 07/10/2017 08/08/2017 Active hydrochlorothiazide 25 mg tablet RxNorm: 557821 Tablet(s) TAKE 1 TABLET BY MOUTH DAILY 06/11/2017 12/07/2017 Active syringe (disposable) RxNorm: Miscellaneous 06/02/2017 11/23/2018 Active 0.5ml/30g/ 12.7mm BD albuterol sulfate 2.5 mg/3 mL (0.083 %) solution for nebulization RxNorm: 318203 3 Milliliter(s) INH QID as needed 05/22/2017 No Stop Date Active Keflex 500 mg capsule RxNorm: 865103 1 Capsule(s) PO TID 201605/18/2017 Inactive Keflex 500 mg capsule RxNorm: 527834 1 Capsule(s) PO TID 201605/11/2017 Inactive Phenergan with Codeine Syrup RxNorm: 5 to 10 ml PO QID as needed cough 05/12/2017 05/18/2017 Inactive hydrocodone 10 mg-acetaminophen 325 mg tablet RxNorm: 127328 1 Tablet(s) PO Q6 as needed 05/05/2017 06/03/2017 Inactive amlodipine 5 mg tablet RxNorm: 040513 TAKE ONE TABLET BY MOUTH DAILY AT BEDTIME 04/03/2017 09/29/2017 Active Generic For:NORVASC 5 MG TABLET 04/03/2017 9:17:21 AM meclizine 12.5 mg tablet RxNorm: 225488 1 Tablet(s) PO TID as needed 03/10/2017 03/19/2017 Inactive meclizine 12.5 mg tablet RxNorm: 595629 1 Tablet(s) PO TID as needed 03/10/2017 03/09/2017 Inactive atenolol 50 mg tablet RxNorm: 666806 1 Tablet(s) PO daily 201607/03/2017 Inactive Novolog 100 unit/mL subcutaneous solution RxNorm: 142910 INJECT 17 UNITS SUBCUTANEOUSLY THREE TIMES DAILY BEFORE MEALS -MAY USE EXTRA 10 UNITS THREE TIMES DAILY IF NEEDED 03/05/20172017 Active 03/05/2017 4:06:58 PM hydrocodone 10 mg-acetaminophen 325 mg tablet RxNorm: 830542 1 Tablet(s) PO Q6 as needed 03/05/2017 05/04/2017 Inactive losartan 25 mg tablet RxNorm: 554156 1 Tablet(s) PO daily 201609/23/2017 Active prednisone 20 mg tablet RxNorm: 016216 3 Tablet(s) PO daily 03/02/2017 Inactive Augmentin 500 mg-125 mg tablet RxNorm: 651812 1 Tablet(s) PO TID 02/26/2017 03/04/2017 Inactive take probiotic BID hydrochlorothiazide 25 mg tablet RxNorm: 693947 TAKE 1 TABLET BY MOUTH DAILY 02/06/2017 06/05/2017 Inactive Generic For:HYDRODIURIL 25 MG TABLET 02/06/2017 9: 16:31 AM doxycycline hyclate 100 mg tablet RxNorm: 042556 1 Tablet(s) PO BID 02/03/2017 02/12/2017 Inactive ProAir HFA 90 mcg/actuation aerosol inhaler RxNorm: 640376 INHALE TWO PUFFS BY MOUTH EVERY 4 TO 6 HOURS NEEDED 01/29/2017 05/08/2017 Inactive gemfibrozil 600 mg tablet RxNorm: 624678 1 Tablet(s) PO BID 12/19/2017 Active 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 Benadryl 25 mg capsule RxNorm: 0725995 TAKE 2 CAPSULES BY MOUTH DIRECTED 12/24/2016 06/21/2017 Inactive 12/24/2016 10:18:24 AM WelChol 625 mg tablet RxNorm: 146836 TAKE 3 TABLETS BY MOUTH DAILY 12/04/2016 12/24/2016 Inactive 12/04/2016 1:23:00 PM amlodipine 5 mg tablet RxNorm: 971187 1 Tablet(s) PO QHS 201603/26/2017 Inactive hydrochlorothiazide 25 mg tablet RxNorm: 826756 TAKE 1 TABLET BY MOUTH DAILY 10/07/2016 02/03/2017 Inactive Generic For:HYDRODIURIL 25 MG TABLET 10/06/2016 10: 03:14 AM Levaquin 500 mg tablet RxNorm: 977654 1 Tablet(s) PO daily 04/201709/29/2016 Inactive prednisone 20 mg tablet RxNorm: 330991 3 Tablet(s) PO daily 06/201608/17/2016 Inactive Kenalog 40 mg/mL suspension for injection RxNorm: 6784455 Milliliter(s) Inj 08/13/2016 08/13/2016 Inactive albuterol sulfate 2.5 mg/3 mL (0.083 %) solution for nebulization RxNorm: 797503 3 Milliliter(s) INH QID as needed 08/13/2016 05/21/2017 Inactive Levemir 100 unit/mL subcutaneous solution RxNorm: 646688 50 Unit(s) SQ QHS 07/23/2016 No Stop Date Active amlodipine 5 mg tablet RxNorm: 933142 1 Tablet(s) PO QHS 201611/19/2016 Inactive Levemir 100 unit/mL subcutaneous solution RxNorm: 040008 50 Unit(s) SQ QHS 07/23/2016 07/22/2016 Inactive Levemir 100 unit/mL subcutaneous solution RxNorm: 218874 10 Unit(s) SQ QAM 07/23/2016 07/26/2017 Inactive amlodipine 5 mg tablet RxNorm: 609026 1 Tablet(s) PO QHS 201607/22/2016 Inactive Levemir 100 unit/mL subcutaneous solution RxNorm: 170716 10 Unit(s) SQ QAM 07/23/2016 07/22/2016 Inactive losartan 25 mg tablet RxNorm: 471641 1 Tablet(s) PO daily 201607/22/2016 Inactive albuterol sulfate 2.5 mg/3 mL (0.083 %) solution for nebulization RxNorm: 986671 3 Milliliter(s) INH QID as needed 07/07/2016 08/12/2016 Inactive Benadryl 25 mg capsule RxNorm: 0935795 TAKE 2 CAPSULES BY MOUTH DIRECTED 07/01/2016 12/23/2016 Inactive 06/30/2016 11:13:10 AM Flonase Allergy Relief 50 mcg/actuation nasal spray, suspension RxNorm: 3508148 2 [place] NASAL BID 06/25/2016 No Stop Date Active Levaquin 500 mg tablet RxNorm: 468110 1 Tablet(s) PO daily Do NOT take at the same time as diflucan 06/25/20162016 Inactive albuterol sulfate 2.5 mg/3 mL (0.083 %) solution for nebulization RxNorm: 853795 3 Milliliter(s) INH QID as needed 06/18/2016 07/06/2016 Inactive Levaquin 500 mg tablet RxNorm: 701589 1 Tablet(s) PO daily Do NOT take at the same time as diflucan 06/18/20162016 Inactive prednisone 20 mg tablet RxNorm: 965255 2 Tablet(s) PO daily start if not feeling any better 06/18/2016 06/22/2016 Inactive Phenergan with Codeine Syrup RxNorm: 5 to 10 ml PO Q6 as needed cough 06/17/2016 05/11/2017 Inactive Phenergan with Codeine Syrup RxNorm: 5 to 10 ml PO Q6 as needed cough 05/23/2016 06/16/2016 Inactive hydrochlorothiazide 25 mg tablet RxNorm: 403647 TAKE ONE (1) TABLET BY MOUTH DAILY 05/12/2016 09/08/2016 Inactive Generic For:HYDRODIURIL 25 MG TABLET 2015 11:19:49 AM hydrochlorothiazide 25 mg tablet RxNorm: 377422 Tablet(s) TAKE ONE (1) TABLET BY MOUTH DAILY 05/09/2016 05/11/2016 Inactive Generic For:HYDRODIURIL 25 MG TABLET 9:16:15 AM doxycycline hyclate 100 mg tablet RxNorm: 898995 1 Tablet(s) PO BID 05/09/2016 05/18/2016 Inactive doxycycline hyclate 100 mg tablet RxNorm: 979705 1 Tablet(s) PO BID 05/09/2016 05/08/2016 Inactive ProAir HFA 90 mcg/actuation aerosol inhaler RxNorm: 065321 2 INH Q4-6H as needed 04/28/2016 08/25/2016 Inactive Diflucan 150 mg tablet RxNorm: 808449 1 Tablet(s) PO daily 08/03/2016 Inactive Benadryl 25 mg capsule RxNorm: 8564910 TAKE 2 CAPSULES BY MOUTH DIRECTED 04/03/2016 06/30/2016 Inactive 04/03/2016 12:37:36 PM Augmentin 500 mg-125 mg tablet RxNorm: 772545 1 Tablet(s) PO TID 03/28/2016 04/03/2016 Inactive take probiotic BID Levemir 100 unit/mL subcutaneous solution RxNorm: 453310 45 Unit(s) SQ QHS 02/28/2016 07/22/2016 Inactive Novolog 100 unit/mL subcutaneous solution RxNorm: 701035 Unit(s) inject 17 units 3 times daily and may use an extra 10units three times daily if needed based on glucose before meals. 02/28/20162016 Inactive atenolol 50 mg tablet RxNorm: 172411 1 Tablet(s) PO daily 201502/20/2017 Inactive Vitamin D2 50,000 unit capsule RxNorm: 264542 1 Capsule(s) PO QW 01/30/2016 09/01/2016 Inactive Kenalog 40 mg/mL suspension for injection RxNorm: 5797786 Milliliter(s) Inj 01/28/2016 01/28/2016 Inactive Benadryl 25 mg capsule RxNorm: 0806744 TAKE 2 CAPSULES BY MOUTH DIRECTED 01/07/2016 04/02/2016 Inactive 01/07/2016 9:16:09 AM hydrochlorothiazide 25 mg tablet RxNorm: 016283 TAKE ONE (1) TABLET BY MOUTH DAILY 01/07/2016 05/05/2016 Inactive Generic For:HYDRODIURIL 25 MG TABLET 2015 9:16:15 AM Diflucan 150 mg tablet RxNorm: 988051 1 Tablet(s) PO daily 10/201502/27/2016 Inactive Augmentin 500 mg-125 mg tablet RxNorm: 156216 1 Tablet(s) PO TID 12/13/2015 12/22/2015 Inactive metformin 500 mg tablet RxNorm: 294712 1/2 Tablet(s) PO BID 07/201507/22/2016 Inactive WelChol 625 mg tablet RxNorm: 337584 3 Tablet(s) PO every other day 11/15/2015 11/14/2015 Inactive Levemir 100 unit/mL subcutaneous solution RxNorm: 032694 45 Unit(s) SQ QHS 11/15/2015 02/27/2016 Inactive WelChol 625 mg tablet RxNorm: 275287 3 Tablet(s) PO daily 201503/13/2016 Inactive Cipro 500 mg tablet RxNorm: 884030 1 Tablet(s) PO BID 201511/12/2015 Inactive Cipro 500 mg tablet RxNorm: 818901 1 Tablet(s) PO BID 201511/05/2015 Inactive Pyridium 200 mg tablet RxNorm: 6512840 1 Tablet(s) PO TID 11/0502/27/2016 Inactive Levemir 100 unit/mL subcutaneous solution RxNorm: 104863 40 Unit(s) SQ QHS 10/08/2015 11/14/2015 Inactive Novolog 100 unit/mL subcutaneous solution RxNorm: 227180 inject 17 units 3 times daily 10/08/2015 02/27/2016 Inactive Benadryl 25 mg capsule RxNorm: 7153442 TAKE 2 CAPSULES BY MOUTH DIRECTED 09/25/2015 12/23/2015 Inactive 09/25/2015 9:14:23 AM N O T I C E PRESCRIPTION PREVIOUSLY AUTHORIZED BY DOCTOR:BOBY BARRETT hydrochlorothiazide 25 mg tablet RxNorm: 019487 Tablet(s) 1 Tablet(s) PO daily 09/11/2015 01/06/2016 Inactive Levemir 100 unit/mL subcutaneous solution RxNorm: 058891 40 Unit(s) SQ QHS 08/21/2015 08/20/2015 Inactive Levemir 100 unit/mL subcutaneous solution RxNorm: 597449 40 Unit(s) SQ QHS 08/21/2015 08/03/2016 Inactive WelChol 625 mg tablet RxNorm: 894870 3 Tablet(s) PO BID 201511/14/2015 Inactive Diflucan 150 mg tablet RxNorm: 421574 1 Tablet(s) PO daily 11/08/2015 Inactive Diflucan 150 mg tablet RxNorm: 641650 1 Tablet(s) PO daily 08/02/2015 Inactive Flonase Allergy Relief 50 mcg/actuation nasal spray, suspension RxNorm: 3041674 2 [place] NASAL BID 08/02/20152016 Inactive Levaquin 500 mg tablet RxNorm: 351529 1 Tablet(s) PO daily 08/08/2015 Inactive ceftriaxone 500 mg solution for injection RxNorm: 0787937 Inj 08/02/2015 08/02/2015 Inactive Kenalog 40 mg/mL suspension for injection RxNorm: 9657686 Milliliter(s) Inj 08/02/2015 08/02/2015 Inactive syringe (disposable) RxNorm: Miscellaneous 07/23/2015 07/16/2016 Inactive 0.5ml/30g/ 12.7mm BD Augmentin 500 mg-125 mg tablet RxNorm: 439949 1 Tablet(s) PO BID 07/17/2015 07/26/2015 Inactive hydrochlorothiazide 25 mg tablet RxNorm: 674076 Tablet(s) 1 Tablet(s) PO daily 04/30/2015 08/27/2015 Inactive Flonase Allergy Relief 50 mcg/actuation nasal spray, suspension RxNorm: 1 [place] NASAL BID 04/19/2015 08/16/2015 Inactive prednisone 20 mg tablet RxNorm: 748206 2 Tablet(s) PO daily x 5 days - start if the patient starts to have symptoms of shortness of breath 02/27/2016 Inactive Levaquin 500 mg tablet RxNorm: 998475 1 Tablet(s) PO daily 04/19/2015 Inactive Kenalog 40 mg/mL suspension for injection RxNorm: 7439789 2 Milliliter(s) Inj 04/10/2015 04/10/2015 Inactive prednisone 20 mg tablet RxNorm: 360501 3 Tablet(s) PO daily 04/14/2015 Inactive cefdinir 300 mg capsule RxNorm: 705853 1 Capsule(s) PO BID 04/08/2015 Inactive cefdinir 300 mg capsule RxNorm: 030758 1 Capsule(s) PO BID 04/15/2015 Inactive ProAir HFA 90 mcg/actuation aerosol inhaler RxNorm: 3694259 2 INH Q4-6H as needed 04/03/2015 04/02/2015 Inactive ProAir HFA 90 mcg/actuation aerosol inhaler RxNorm: 019172 2 INH Q4-6H as needed 04/03/2015 07/31/2015 Inactive ipratropium-albuterol 0.5 mg-3 mg(2.5 mg base)/3 mL nebulization soln RxNorm: 9395010 1 INH Q6 as needed 04/03/2015 09/01/2016 Inactive ipratropium-albuterol 0.5 mg-3 mg(2.5 mg base)/3 mL nebulization soln RxNorm: 8912133 1 INH Q6 as needed 04/03/2015 04/02/2015 Inactive Zithromax Z-Slim 250 mg tablet RxNorm: 958599 1 Tablet(s) PO UD 04/03/2015 11/08/2015 Inactive zpack as directed hydrocodone 10 mg-acetaminophen 325 mg tablet RxNorm: 785281 1 Tablet(s) PO Q6 as needed 03/09/2015 03/04/2017 Inactive atenolol 50 mg tablet RxNorm: 312344 1 Tablet(s) PO daily 201402/22/2016 Inactive syringe (disposable) RxNorm: Miscellaneous 02/23/2015 07/22/2015 Inactive 0.5ml/30g/ 12.7mm BD hydrochlorothiazide 25 mg tablet RxNorm: 850366 1 Tablet(s) PO daily 02/09/2015 04/29/2015 Inactive hydrochlorothiazide 25 mg tablet RxNorm: 689186 1 Tablet(s) PO daily 01/15/2015 02/08/2015 Inactive furosemide 20 mg tablet RxNorm: 140086 1 Tablet(s) PO daily No Start Date Active spironolactone 25 mg tablet RxNorm: 980652 1 Tablet(s) PO daily managed by [facility] No Start Date Active Flonase Allergy Relief 50 mcg/actuation nasal spray, suspension RxNorm: 2440592 1 [place] NASAL BID No Start Date Active rosuvastatin 10 mg tablet RxNorm: 092995 1 Tablet(s) PO daily No Start Date Active Vitamin D3 2,000 unit tablet RxNorm: 528792 1 Tablet(s) PO daily No Start Date Active Ventolin HFA 90 mcg/actuation aerosol inhaler RxNorm: 010291 1-2 Puff(s) INH Q4- 6H as needed No Start Date Active Aspirin Low Dose 81 mg tablet,delayed release RxNorm: 436431 1 Tablet(s) PO daily No Start Date Active Lyrica 50 mg capsule RxNorm: 791317 1 Capsule(s) PO BID No Start Date Active Fish Oil 300 mg-1,000 mg capsule RxNorm: 858999 1 Capsule(s) PO TID No Start Date Active enalapril maleate 10 mg tablet RxNorm: 888811 1 Tablet(s) PO BID No Start Date 07/13/2016 Inactive Pyridium 200 mg tablet RxNorm: 8400465 1 Tablet(s) PO TID No Start Date 11/05/2015 Inactive potassium chloride ER 10 mEq tablet,extended release RxNorm: 250268 1 Tablet(s) PO daily No Start Date 06/10/2017 Inactive hydrochlorothiazide 25 mg tablet RxNorm: 946404 1 Tablet(s) PO daily No Start Date 01/14/2015 Inactive syringe (disposable) RxNorm: Miscellaneous No Start Date 02/22/2015 Inactive Levemir 100 unit/mL subcutaneous solution RxNorm: 458819 SSI usually 28-38 Unit(s ) SQ No Start Date 08/03/2016 Inactive Phenergan with Codeine Syrup RxNorm: 5 to 10 ml PO Q6 as needed cough No Start Date 05/22/2016 Inactive Zithromax Z-Slim 250 mg tablet RxNorm: 483069 1 Tablet(s) PO UD No Start Date 04/02/2015 Inactive zpack as directed Novolog 100 unit/mL subcutaneous solution RxNorm: 573391 Unit(s) SQ per SSI No Start Date 10/07/2015 Inactive hydrocodone 10 mg-acetaminophen 325 mg tablet RxNorm: 846400 1 Tablet(s) PO Q6 No Start Date 03/08/2015 Inactive Levemir 100 unit/mL subcutaneous solution RxNorm: 112117 10 Unit(s) SQ QAM No Start Date 07/22/2016 Inactive WelChol 625 mg tablet RxNorm: 612830 3 Tablet(s) PO BID No Start Date 08/09/2015 Inactive Benadryl 25 mg capsule RxNorm: 1609798 Capsule(s) PO as needed No Start Date 09/24/2015 Inactive Vitamin D2 50,000 unit capsule RxNorm: 243225 1 Capsule(s) PO QW No Start Date 01/29/2016 Inactive atenolol 50 mg tablet RxNorm: 023667 1 Tablet(s) PO daily No Start Date 03/05/2017 Inactive Medication Administered Medication Codes Instructions Start Date Status Kenalog 40 mg/mL suspension for injection RxNorm: 5740540 Milliliter 08/13/2016 No longer Active Kenalog 40 mg/mL suspension for injection RxNorm: 3131130 Milliliter 01/28/2016 No longer Active ceftriaxone 500 mg solution for injection RxNorm: 1462073 08/02/2015 No longer Active Kenalog 40 mg/mL suspension for injection RxNorm: 4924622 Milliliter 08/02/2015 No longer Active Kenalog 40 mg/mL suspension for injection RxNorm: 1215184 2Milliliter 04/10/2015 No longer Active Immunizations Vaccine Codes Date Status Influenza CVX: 141 02/28/2016 completed Influenza CVX: 141 04/27/2015 completed Assessments Condition Codes Effective Dates Essential (primary) hypertension ICD-10: I10 ICD-9: 401.1 12/25/2016 Type 2 diabetes mellitus with hyperglycemia ICD-10: E11.65 ICD-9: 250.00 12/25/2016 Other allergic rhinitis ICD-10: J30.89 ICD-9: 477.8 12/25/2016 Mixed hyperlipidemia ICD-10: E78.2 ICD-9: 272.2 09/02/2016 Cough ICD-10: R05 ICD-9: 786.2 07/14/2016 Essential (primary) hypertension ICD-10: I10 ICD-9: 401.9 07/14/2016 Acute laryngopharyngitis ICD-10: J06.0 ICD-9: 465.0 06/18/2016 Acute nasopharyngitis [common cold] ICD-10: J00 ICD-9: 460 05/07/2016 Spontaneous ecchymoses ICD-10: R23.3 ICD-9: 782.7 02/28/2016 Encounter for immunization ICD-10: Z23 ICD-9: V04.81 02/28/2016 Acute recurrent maxillary sinusitis ICD-10: J01.01 ICD-9: 461.0 01/28/2016 Dysuria ICD-10: R30.0 ICD-9: 788.1 12/13/2015 Urinary tract infection, site not specified ICD-10: N39.0 ICD-9: 599.0 11/06/2015 Acute maxillary sinusitis, unspecified ICD-10: J01.00 ICD-9: 461.0 07/17/2015 Acute bronchitis, unspecified ICD-10: J20.9 ICD-9: 466.0 04/19/2015 DIABETES TYPE II ICD-9: 250.00 2014 ESSENTIAL HYPERTENSION ICD-9: 401.9 12/21 Peripheral neuropathy ICD-9: 356.9 2014 Reason For Visit Reason For Visit Effective Dates Notes nasal discharge 12/25/2016 cough 09/02/2016 hypertension 08/13/2016 hypertension 07/14/2016 cough 06/25/2016 sinus congestion 06/18/2016 cough 05/07/2016 hypertension 02/28/2016 sinus congestion 01/28/2016 hypertension 11/15/2015 cough 08/02/2015 cough 07/17/2015 vaccination against influenza 04/27/2015 cough 04/19/2015 cough 04/10/2015 hypertension 12/21/2014 Results Observation Observation Code Item Item Code Result Date Comp Metabolic Gls900 NA 136 mEq/L 07/14/2016 Comp Metabolic Dlh031 K 3.9 mEq/L 07/14/2016 Comp Metabolic Aqr810 CL 101 mEq/L 07/14/2016 Comp Metabolic Dwh993 CO2 28.0 mEq/L 07/14/2016 Comp Metabolic Qaa601 ANION GAP 11 07/14/2016 Comp Metabolic Rmw718 GLUCOSE 163 mg/dL 07/14/2016 Comp Metabolic Svn881 Creat 0.7 mg/dL 07/14/2016 Comp Metabolic Aoz570 eGFR 91 ml/min/1.73m2 07/14/2016 Comp Metabolic Lku586 BUN 12 mg/dL 07/14/2016 Comp Metabolic Ktu679 B/C Ratio 17.9 Ratio 07/14/2016 Comp Metabolic Xay410 CALCIUM 9.4 mg/dL 07/14/2016 Comp Metabolic Qcf294 ALK PHOS 62 U/L 07/14/2016 Comp Metabolic Dir498 AST(SGOT) 41 U/L 07/14/2016 Comp Metabolic Ujz913 ALT(SGPT) 39 U/L 07/14/2016 Comp Metabolic Ruo652 BILI T 0.6 mg/dL 07/14/2016 Comp Metabolic Avs829 ALBUMIN 3.7 g/dL 07/14/2016 Comp Metabolic Thh059 TPRO 6.0 g/dL 07/14/2016 Comp Metabolic Bgn410 GLOB 2.3 g/dL 07/14/2016 Comp Metabolic Euc695 A/G Ratio 1.6 Ratio 07/14/2016 Comp Metabolic Aoi659 Osmo 275 mOsmo 07/14/2016 %Hba1C Etp459 % HbA1c 69204-0 7.0 % 07/14/2016 %Hba1C Dfe417 Gluc Ave 154 mg/dL 07/14/2016 Cbc With Differential Ord2 WBC 9.06 K/ul 02/28/2016 Cbc With Differential Ord2 RBC 4.61 M/ul 02/28/2016 Cbc With Differential Ord2 HGB 14.6 g/dl 02/28/2016 Cbc With Differential Ord2 Neut% 73.7 % 02/28/2016 Cbc With Differential Ord2 HCT 43.9 % 02/28/2016 Cbc With Differential Ord2 MCV 95.2 fl 02/28/2016 Cbc With Differential Ord2 Lymph% 17.0 % 02/28/2016 Cbc With Differential Ord2 MCH 31.7 pg 02/28/2016 Cbc With Differential Ord2 [place]% 8.8 % 02/28/2016 Cbc With Differential Ord2 MCHC 33.3 pg 02/28/2016 Cbc With Differential Ord2 Eos% 0.4 % 02/28/2016 Cbc With Differential Ord2 PLT 186 K/ul 02/28/2016 Cbc With Differential Ord2 Baso% 0.1 % 02/28/2016 Cbc With Differential Ord2 RDW 13.8 % 02/28/2016 Cbc With Differential Ord2 Neut ABS# 6.67 K/ul 02/28/2016 Cbc With Differential Ord2 Lymph ABS# 1.54 K/ul 02/28/2016 Cbc With Differential Ord2 [place] ABS# 0.8 K/ul 02/28/2016 Cbc With Differential Ord2 Eos ABS# 0.0 K/ul 02/28/2016 Cbc With Differential Ord2 Baso ABS# 0.0 K/ul 02/28/2016 Vitamin D 25 Oh [id number] VITAMIN D, 25 HYDROXY 16.62 ng/mL Comp Metabolic Uiu379 NA 137 mEq/L 01/16/2016 Comp Metabolic Hvb652 K 3.6 mEq/L 01/16/2016 Comp Metabolic Pfl057 CL 100 mEq/L 01/16/2016 Comp Metabolic Win222 CO2 31.0 mEq/L 01/16/2016 Comp Metabolic Wdu350 ANION GAP 10 01/16/2016 Comp Metabolic Vtl364 GLUCOSE 164 mg/dL 01/16/2016 Comp Metabolic Usj477 Creat 0.8 mg/dL 01/16/2016 Comp Metabolic Utk731 eGFR 79 ml/min/1.73m2 01/16/2016 Comp Metabolic Xhe436 BUN 13 mg/dL 01/16/2016 Comp Metabolic Uhi658 B/C Ratio 17.1 Ratio 01/16/2016 Comp Metabolic Ntx632 CALCIUM 9.1 mg/dL 01/16/2016 Comp Metabolic Wqj095 ALK PHOS 55 U/L 01/16/2016 Comp Metabolic Uen535 AST(SGOT) 24 U/L 01/16/2016 Comp Metabolic Mwd524 ALT(SGPT) 30 U/L 01/16/2016 Comp Metabolic Jap929 BILI T 0.5 mg/dL 01/16/2016 Comp Metabolic Afv260 ALBUMIN 3.8 g/dL 01/16/2016 Comp Metabolic Qlc808 TPRO 6.0 g/dL 01/16/2016 Comp Metabolic Los790 GLOB 2.2 g/dL 01/16/2016 Comp Metabolic Tsw446 A/G Ratio 1.7 Ratio 01/16/2016 Comp Metabolic Kzt451 Osmo 278 mOsmo 01/16/2016 Urine Culture Ucult Complete >100,000 col/ml aerobic growth sent to ref lab 12/14/2015 Urinalysis Ord28 U-Color Power 12/13/2015 Urinalysis Ord28 U-Clarity Slightly Cloudy 12/13/2015 Urinalysis Ord28 U-Gluc 100 mg/dL 12/13/2015 Urinalysis Ord28 U-Bili Negative 12/13/2015 Urinalysis Ord28 U-Ketone Negative 12/13/2015 Urinalysis Ord28 U-SG 1.015 12/13/2015 Urinalysis Ord28 U-Blood Trace-intact 12/13/2015 Urinalysis Ord28 U-pH 6.0 12/13/2015 Urinalysis Ord28 U-Protein Trace 12/13/2015 Urinalysis Ord28 U-Urobilin 1.0 E.U./dL E.U./dL 12/13/2015 Urinalysis Ord28 U-Nitrites Positive 12/13/2015 Urinalysis Ord28 U-Leuk Large 12/13/2015 Urinalysis Ord28 U-Bact 3+ 12/13/2015 Urinalysis Ord28 U-Squamous Epi 5-10 per/HPF 12/13/2015 Urinalysis Ord28 U-Crystal None per/HPF 12/13/2015 Urinalysis Ord28 U-Mucus None 12/13/2015 Urinalysis Ord28 U-Renal tubular epi None 12/13/2015 Urinalysis Ord28 U-RBC None per/HPF 12/13/2015 Urinalysis Ord28 U-Transitional epi None per/HPF 12/13/2015 Urinalysis Ord28 U-WBC 40-50 per/HPF 12/13/2015 Urinalysis Ord28 U-Cast None per/HPF 12/13/2015 Urinalysis Ord28 U-VOL VOLUME SUFFICIENT (10mL) 12/13/2015 Urinalysis Ord28 U-Yeast NEGATIVE 12/13/2015 Urinalysis Ord28 U-Com Culture to follow 12/13/2015 Lipid Ord30 CHOL 247 mg/dL 11/16/2015 Lipid Ord30 HDL 45.0 mg/dl 11/16/2015 Lipid Ord30 TRIG 191 mg/dL 11/16/2015 Lipid Ord30 LDL 164 mg/dL 11/16/2015 Lipid Ord30 C/HDL 5.5 Ratio 11/16/2015 Magnesium Ord90 Mag 2.0 mg/dL 11/16/2015 %Hba1C Jvp725 % HbA1c 17168-1 6.5 % 11/16/2015 %Hba1C Yor507 Gluc Ave 140 mg/dL 11/16/2015 Comp Metabolic Zsk326 NA 139 mEq/L 11/16/2015 Comp Metabolic Xtr648 K 3.5 mEq/L 11/16/2015 Comp Metabolic Bur426 CL 101 mEq/L 11/16/2015 Comp Metabolic Gll766 CO2 32.0 mEq/L 11/16/2015 Comp Metabolic Buf788 ANION GAP 10 11/16/2015 Comp Metabolic Dlx515 GLUCOSE 100 mg/dL 11/16/2015 Comp Metabolic Qno380 Creat 0.7 mg/dL 11/16/2015 Comp Metabolic Tzg358 eGFR 81 ml/min/1.73m2 11/16/2015 Comp Metabolic Own159 BUN 12 mg/dL 11/16/2015 Comp Metabolic Hpo869 B/C Ratio 16.2 Ratio 11/16/2015 Comp Metabolic Gde033 CALCIUM 9.1 mg/dL 11/16/2015 Comp Metabolic Emt038 ALK PHOS 52 U/L 11/16/2015 Comp Metabolic Ivm953 AST(SGOT) 22 U/L 11/16/2015 Comp Metabolic Hbi047 ALT(SGPT) 27 U/L 11/16/2015 Comp Metabolic Cph968 BILI T 0.9 mg/dL 11/16/2015 Comp Metabolic Wws943 ALBUMIN 3.6 g/dL 11/16/2015 Comp Metabolic Idm769 TPRO 6.0 g/dL 11/16/2015 Comp Metabolic Sew385 GLOB 2.4 g/dL 11/16/2015 Comp Metabolic Cpr034 A/G Ratio 1.5 Ratio 11/16/2015 Comp Metabolic Bip331 Osmo 277 mOsmo 11/16/2015 Lipid Ord30 CHOL 227 mg/dL 08/02/2015 Lipid Ord30 HDL 41.0 mg/dl 08/02/2015 Lipid Ord30 TRIG 281 mg/dL 08/02/2015 Lipid Ord30 LDL 130 mg/dL 08/02/2015 Lipid Ord30 C/HDL 5.5 Ratio 08/02/2015 %Hba1C Kcp414 % HbA1c 66189-1 6.9 % 08/02/2015 %Hba1C Gui920 Gluc Ave 151 mg/dL 08/02/2015 Cbc With Differential Ord2 WBC 6.26 K/ul 08/02/2015 Cbc With Differential Ord2 RBC 4.69 M/ul 08/02/2015 Cbc With Differential Ord2 HGB 14.8 g/dl 08/02/2015 Cbc With Differential Ord2 Neut% 57.8 % 08/02/2015 Cbc With Differential Ord2 HCT 43.9 % 08/02/2015 Cbc With Differential Ord2 MCV 93.6 fl 08/02/2015 Cbc With Differential Ord2 Lymph% 25.7 % 08/02/2015 Cbc With Differential Ord2 MCH 31.6 pg 08/02/2015 Cbc With Differential Ord2 Converse% 10.1 % 08/02/2015 Cbc With Differential Ord2 MCHC 33.7 pg 08/02/2015 Cbc With Differential Ord2 Eos% 5.6 % 08/02/2015 Cbc With Differential Ord2 PLT 165 K/ul 08/02/2015 Cbc With Differential Ord2 Baso% 0.8 % 08/02/2015 Cbc With Differential Ord2 RDW 12.8 % 08/02/2015 Cbc With Differential Ord2 Neut ABS# 3.62 K/ul 08/02/2015 Cbc With Differential Ord2 Lymph ABS# 1.61 K/ul 08/02/2015 Cbc With Differential Ord2 Converse ABS# 0.6 K/ul 08/02/2015 Cbc With Differential Ord2 Eos ABS# 0.4 K/ul 08/02/2015 Cbc With Differential Ord2 Baso ABS# 0.1 K/ul 08/02/2015 Cbc With Differential Ord2 New Analyzer Notice Please note new ref ranges starting 06-27-2015 due to implemntation of new five part differential hematolgy analyzer. 08/02/2015 Comp Metabolic Nnn534 NA 140 mEq/L 08/02/2015 Comp Metabolic Fiz864 K 3.6 mEq/L 08/02/2015 Comp Metabolic Emo470 CL 101 mEq/L 08/02/2015 Comp Metabolic Ipr172 CO2 30.0 mEq/L 08/02/2015 Comp Metabolic Bfo099 ANION GAP 13 08/02/2015 Comp Metabolic Ofg447 GLUCOSE 139 mg/dL 08/02/2015 Comp Metabolic Brj966 Creat 0.8 mg/dL 08/02/2015 Comp Metabolic Bpb880 eGFR 80 ml/min/1.73m2 08/02/2015 Comp Metabolic Efo585 BUN 13 mg/dL 08/02/2015 Comp Metabolic Eho137 B/C Ratio 17.3 Ratio 08/02/2015 Comp Metabolic Afa632 CALCIUM 9.3 mg/dL 08/02/2015 Comp Metabolic Rgt985 ALK PHOS 54 U/L 08/02/2015 Comp Metabolic Lct477 AST(SGOT) 27 U/L 08/02/2015 Comp Metabolic Mtz004 ALT(SGPT) 32 U/L 08/02/2015 Comp Metabolic Lpv805 BILI T 0.7 mg/dL 08/02/2015 Comp Metabolic Pnz447 ALBUMIN 3.7 g/dL 08/02/2015 Comp Metabolic Lde079 TPRO 5.9 g/dL 08/02/2015 Comp Metabolic Rmy934 GLOB 2.2 g/dL 08/02/2015 Comp Metabolic Mgb830 A/G Ratio 1.7 Ratio 08/02/2015 Comp Metabolic Lvj500 Osmo 282 mOsmo 08/02/2015 Tsh Ord6 hTSH II 2.09 uIU/mL 08/02/2015 Review of Systems System Result Effective Dates Constitutional recent illness 12/25/2016 Constitutional No chills 12/25/2016 Constitutional fatigue 12/25/2016 Constitutional No fever 12/25/2016 Constitutional No insomnia 12/25/2016 Constitutional No malaise 12/25/2016 Eyes No blindness 12/25/2016 Eyes No vision change 12/25/2016 Ears/Nose/Throat/Neck No dental pain Ears/Nose/Throat/Neck No dizziness 2016 Ears/Nose/Throat/Neck No dysphagia 2016 Ears/Nose/Throat/Neck No headache 2016 Ears/Nose/Throat/Neck No hearing loss Ears/Nose/Throat/Neck nasal allergies Ears/Nose/Throat/Neck No postnasal drip 12/25/2016 Ears/Nose/Throat/Neck No sinus congestion 12/25/2016 Cardiovascular chest pain/pressure 2016 Cardiovascular No dyspnea 12/25/2016 Cardiovascular No edema 12/25/2016 Cardiovascular exercise intolerance 12/25 Cardiovascular fatigue 12/25/2016 Cardiovascular No near-syncope/dizziness 12/25/2016 Respiratory No chest tightness 2016 Respiratory cough 12/25/2016 Respiratory No dyspnea 12/25/2016 Respiratory No pedal edema 12/25/2016 Gastrointestinal No abdominal pain 2016 Gastrointestinal No constipation 2016 Gastrointestinal No diarrhea 12/25/2016 Gastrointestinal No gastroesophageal reflux 12/25/2016 Gastrointestinal No nausea 12/25/2016 Gastrointestinal No vomiting 12/25/2016 Genitourinary/Nephrology No dysuria 12/25 Genitourinary/Nephrology No nocturia Genitourinary/Nephrology No urinary incontinence 12/25/2016 Musculoskeletal No stiffness 12/25/2016 Musculoskeletal No swelling 12/25/2016 Musculoskeletal No muscle weakness 2016 Musculoskeletal No myalgias 12/25/2016 Dermatologic No rash 12/25/2016 Dermatologic No sores 12/25/2016 Dermatologic No scar 12/25/2016 Neurologic No dizziness 12/25/2016 Neurologic No headache 12/25/2016 Neurologic No neck pain 12/25/2016 Neurologic No syncope 12/25/2016 Psychiatric No anxiety 12/25/2016 Psychiatric No depression 12/25/2016 Constitutional No recent illness 2016 Constitutional No chills 09/02/2016 Constitutional No fatigue 09/02/2016 Constitutional No fever 09/02/2016 Constitutional No insomnia 09/02/2016 Constitutional No malaise 09/02/2016 Eyes No blindness 09/02/2016 Eyes No vision change 09/02/2016 Ears/Nose/Throat/Neck No dental pain Ears/Nose/Throat/Neck No dizziness 2016 Ears/Nose/Throat/Neck No dysphagia 2016 Ears/Nose/Throat/Neck No headache 2016 Ears/Nose/Throat/Neck No hearing loss Ears/Nose/Throat/Neck No nasal allergies 09/02/2016 Ears/Nose/Throat/Neck No postnasal drip 09/02/2016 Ears/Nose/Throat/Neck No sinus congestion 09/02/2016 Cardiovascular No chest pain/pressure Cardiovascular No dyspnea 09/02/2016 Cardiovascular No edema 09/02/2016 Cardiovascular No exercise intolerance Cardiovascular No fatigue 09/02/2016 Cardiovascular No near-syncope/dizziness 09/02/2016 Respiratory No chest tightness 2016 Respiratory cough 09/02/2016 Respiratory No dyspnea 09/02/2016 Respiratory No pedal edema 09/02/2016 Gastrointestinal No abdominal pain 2016 Gastrointestinal No constipation 2016 Gastrointestinal No diarrhea 09/02/2016 Gastrointestinal No gastroesophageal reflux 09/02/2016 Gastrointestinal No nausea 09/02/2016 Gastrointestinal No vomiting 09/02/2016 Genitourinary/Nephrology No dysuria 09/02 Genitourinary/Nephrology No nocturia Genitourinary/Nephrology No urinary incontinence 09/02/2016 Musculoskeletal No stiffness 09/02/2016 Musculoskeletal No swelling 09/02/2016 Musculoskeletal No muscle weakness 2016 Musculoskeletal No myalgias 09/02/2016 Dermatologic No rash 09/02/2016 Dermatologic No sores 09/02/2016 Dermatologic No scar 09/02/2016 Neurologic No dizziness 09/02/2016 Neurologic No headache 09/02/2016 Neurologic No neck pain 09/02/2016 Neurologic No syncope 09/02/2016 Psychiatric No anxiety 09/02/2016 Psychiatric No depression 09/02/2016 Constitutional recent illness 08/13/2016 Constitutional No chills 08/13/2016 Constitutional fatigue 08/13/2016 Constitutional No fever 08/13/2016 Constitutional No insomnia 08/13/2016 Constitutional malaise 08/13/2016 Eyes No blindness 08/13/2016 Eyes No vision change 08/13/2016 Ears/Nose/Throat/Neck No dental pain 06/2016 Ears/Nose/Throat/Neck No dizziness 2016 Ears/Nose/Throat/Neck No dysphagia 2016 Ears/Nose/Throat/Neck No headache 2016 Ears/Nose/Throat/Neck No hearing loss 06/2016 Ears/Nose/Throat/Neck No nasal allergies 08/13/2016 Ears/Nose/Throat/Neck No postnasal drip 08/13/2016 Ears/Nose/Throat/Neck No sinus congestion 08/13/2016 Cardiovascular No chest pain/pressure 06/2016 Cardiovascular No dyspnea 08/13/2016 Cardiovascular No edema 08/13/2016 Cardiovascular No exercise intolerance Cardiovascular No fatigue 08/13/2016 Cardiovascular No near-syncope/dizziness 08/13/2016 Respiratory No chest tightness 2016 Respiratory cough 08/13/2016 Respiratory dyspnea 08/13/2016 Respiratory No pedal edema 08/13/2016 Gastrointestinal No abdominal pain 2016 Gastrointestinal No constipation 2016 Gastrointestinal No diarrhea 08/13/2016 Gastrointestinal No gastroesophageal reflux 08/13/2016 Gastrointestinal No nausea 08/13/2016 Gastrointestinal No vomiting 08/13/2016 Genitourinary/Nephrology No dysuria 08/13 Genitourinary/Nephrology No nocturia 06/2016 Genitourinary/Nephrology No urinary incontinence 08/13/2016 Musculoskeletal No stiffness 08/13/2016 Musculoskeletal No swelling 08/13/2016 Musculoskeletal No muscle weakness 2016 Musculoskeletal No myalgias 08/13/2016 Dermatologic No rash 08/13/2016 Dermatologic No sores 08/13/2016 Dermatologic No scar 08/13/2016 Neurologic No dizziness 08/13/2016 Neurologic No headache 08/13/2016 Neurologic No neck pain 08/13/2016 Neurologic No syncope 08/13/2016 Psychiatric No anxiety 08/13/2016 Psychiatric No depression 08/13/2016 Respiratory dyspnea on exertion 2016 Constitutional No recent illness 2016 Constitutional No chills 07/14/2016 Constitutional No fatigue 07/14/2016 Constitutional No fever 07/14/2016 Constitutional No insomnia 07/14/2016 Constitutional No malaise 07/14/2016 Eyes No blindness 07/14/2016 Eyes No vision change 07/14/2016 Ears/Nose/Throat/Neck No dental pain Ears/Nose/Throat/Neck No dizziness 2016 Ears/Nose/Throat/Neck No dysphagia 2016 Ears/Nose/Throat/Neck No headache 2016 Ears/Nose/Throat/Neck No hearing loss Ears/Nose/Throat/Neck No nasal allergies 07/14/2016 Ears/Nose/Throat/Neck No postnasal drip 07/14/2016 Ears/Nose/Throat/Neck No sinus congestion 07/14/2016 Cardiovascular No chest pain/pressure Cardiovascular No dyspnea 07/14/2016 Cardiovascular No edema 07/14/2016 Cardiovascular No exercise intolerance Cardiovascular No fatigue 07/14/2016 Cardiovascular No near-syncope/dizziness 07/14/2016 Respiratory No chest tightness 2016 Respiratory cough 07/14/2016 Respiratory No dyspnea 07/14/2016 Respiratory No pedal edema 07/14/2016 Gastrointestinal No abdominal pain 2016 Gastrointestinal No constipation 2016 Gastrointestinal No diarrhea 07/14/2016 Gastrointestinal No gastroesophageal reflux 07/14/2016 Gastrointestinal No nausea 07/14/2016 Gastrointestinal No vomiting 07/14/2016 Genitourinary/Nephrology No dysuria 07/14 Genitourinary/Nephrology No nocturia Genitourinary/Nephrology No urinary incontinence 07/14/2016 Musculoskeletal No stiffness 07/14/2016 Musculoskeletal No swelling 07/14/2016 Musculoskeletal No muscle weakness 2016 Musculoskeletal No myalgias 07/14/2016 Dermatologic No rash 07/14/2016 Dermatologic No sores 07/14/2016 Dermatologic No scar 07/14/2016 Neurologic No dizziness 07/14/2016 Neurologic No headache 07/14/2016 Neurologic No neck pain 07/14/2016 Neurologic No syncope 07/14/2016 Psychiatric No anxiety 07/14/2016 Psychiatric No depression 07/14/2016 Constitutional recent illness 06/18/2016 Constitutional chills 06/18/2016 Constitutional No diaphoresis 06/18/2016 Constitutional fever 06/18/2016 Eyes No eye erythema 06/18/2016 Ears/Nose/Throat/Neck nasal allergies 09/2016 Ears/Nose/Throat/Neck nasal discharge 09/2016 Ears/Nose/Throat/Neck postnasal drip 09/2016 Ears/Nose/Throat/Neck sinus congestion Ears/Nose/Throat/Neck sore throat 2016 Cardiovascular No chest pain/pressure 09/2016 Cardiovascular No dyspnea 06/18/2016 Respiratory chest congestion 06/18/2016 Respiratory cough 06/18/2016 Respiratory No dyspnea 06/18/2016 Gastrointestinal No vomiting 06/18/2016 Dermatologic No rash 06/18/2016 Neurologic No alteration of consciousness 06/18/2016 Neurologic No mental status change 2016 Respiratory dyspnea on exertion 2016 Constitutional recent illness 05/07/2016 Constitutional No diaphoresis 05/07/2016 Eyes No eye erythema 05/07/2016 Ears/Nose/Throat/Neck nasal allergies Ears/Nose/Throat/Neck nasal discharge Ears/Nose/Throat/Neck postnasal drip Cardiovascular No chest pain/pressure Cardiovascular No dyspnea 05/07/2016 Respiratory No chest congestion 2015 Respiratory cough 05/07/2016 Respiratory No dyspnea 05/07/2016 Gastrointestinal No constipation 2015 Gastrointestinal No diarrhea 05/07/2016 Gastrointestinal No nausea 05/07/2016 Gastrointestinal No vomiting 05/07/2016 Dermatologic No rash 05/07/2016 Neurologic No alteration of consciousness 05/07/2016 Neurologic No mental status change 2015 Constitutional No chills 05/07/2016 Constitutional No fever 05/07/2016 Ears/Nose/Throat/Neck No sore throat Constitutional No recent illness 2015 Constitutional No chills 02/28/2016 Constitutional No fatigue 02/28/2016 Constitutional No fever 02/28/2016 Constitutional No insomnia 02/28/2016 Constitutional No malaise 02/28/2016 Eyes No blindness 02/28/2016 Eyes No vision change 02/28/2016 Ears/Nose/Throat/Neck No dental pain Ears/Nose/Throat/Neck No dizziness 2015 Ears/Nose/Throat/Neck No dysphagia 2015 Ears/Nose/Throat/Neck No headache 2015 Ears/Nose/Throat/Neck No hearing loss Ears/Nose/Throat/Neck No nasal allergies 02/28/2016 Ears/Nose/Throat/Neck sore throat 2015 Ears/Nose/Throat/Neck No postnasal drip 02/28/2016 Ears/Nose/Throat/Neck No sinus congestion 02/28/2016 Cardiovascular No chest pain/pressure Cardiovascular No dyspnea 02/28/2016 Cardiovascular No edema 02/28/2016 Cardiovascular No exercise intolerance Cardiovascular No fatigue 02/28/2016 Cardiovascular No near-syncope/dizziness 02/28/2016 Respiratory No chest tightness 2015 Respiratory cough 02/28/2016 Respiratory No dyspnea 02/28/2016 Respiratory No pedal edema 02/28/2016 Gastrointestinal No abdominal pain 2015 Gastrointestinal No constipation 2015 Gastrointestinal No diarrhea 02/28/2016 Gastrointestinal No gastroesophageal reflux 02/28/2016 Gastrointestinal No nausea 02/28/2016 Gastrointestinal No vomiting 02/28/2016 Genitourinary/Nephrology No dysuria 02/27 Genitourinary/Nephrology No nocturia Genitourinary/Nephrology No urinary incontinence 02/28/2016 Musculoskeletal stiffness 02/28/2016 Musculoskeletal No swelling 02/28/2016 Musculoskeletal No muscle weakness 2015 Musculoskeletal No myalgias 02/28/2016 Dermatologic No rash 02/28/2016 Neurologic No dizziness 02/28/2016 Neurologic No headache 02/28/2016 Neurologic No neck pain 02/28/2016 Neurologic No syncope 02/28/2016 Psychiatric No anxiety 02/28/2016 Psychiatric No depression 02/28/2016 Dermatologic pigmentation change 2015 Musculoskeletal back pain 02/28/2016 Constitutional recent illness 01/28/2016 Constitutional No fever 01/28/2016 Eyes No eye erythema 01/28/2016 Eyes No vision change 01/28/2016 Ears/Nose/Throat/Neck nasal allergies Ears/Nose/Throat/Neck nasal discharge Ears/Nose/Throat/Neck postnasal drip Ears/Nose/Throat/Neck sinus congestion Cardiovascular No chest pain/pressure Cardiovascular No dyspnea 01/28/2016 Respiratory cough 01/28/2016 Gastrointestinal No abdominal pain 2015 Gastrointestinal No nausea 01/28/2016 Gastrointestinal No vomiting 01/28/2016 Dermatologic No rash 01/28/2016 Dermatologic No sores 01/28/2016 Dermatologic No scar 01/28/2016 Neurologic No alteration of consciousness 01/28/2016 Psychiatric No anxiety 01/28/2016 Psychiatric No depression 01/28/2016 Respiratory wheezing 01/28/2016 Respiratory asthma 01/28/2016 Musculoskeletal No joint complaint 2015 Neurologic No mental status change 2015 Constitutional No recent illness 2015 Constitutional No chills 11/15/2015 Constitutional No fatigue 11/15/2015 Constitutional No fever 11/15/2015 Constitutional No insomnia 11/15/2015 Constitutional No malaise 11/15/2015 Eyes No blindness 11/15/2015 Eyes No vision change 11/15/2015 Ears/Nose/Throat/Neck No dental pain 07/2015 Ears/Nose/Throat/Neck No dizziness 2015 Ears/Nose/Throat/Neck No dysphagia 2015 Ears/Nose/Throat/Neck No headache 2015 Ears/Nose/Throat/Neck No hearing loss 07/2015 Ears/Nose/Throat/Neck No nasal allergies 11/15/2015 Ears/Nose/Throat/Neck sore throat 2015 Ears/Nose/Throat/Neck No postnasal drip 11/15/2015 Ears/Nose/Throat/Neck No sinus congestion 11/15/2015 Cardiovascular No chest pain/pressure 07/2015 Cardiovascular No dyspnea 11/15/2015 Cardiovascular No edema 11/15/2015 Cardiovascular No exercise intolerance Cardiovascular No fatigue 11/15/2015 Cardiovascular No near-syncope/dizziness 11/15/2015 Respiratory No chest tightness 2015 Respiratory cough 11/15/2015 Respiratory No dyspnea 11/15/2015 Respiratory No pedal edema 11/15/2015 Gastrointestinal No abdominal pain 2015 Gastrointestinal No constipation 2015 Gastrointestinal No diarrhea 11/15/2015 Gastrointestinal No gastroesophageal reflux 11/15/2015 Gastrointestinal No nausea 11/15/2015 Gastrointestinal No vomiting 11/15/2015 Genitourinary/Nephrology No dysuria 11/14 Genitourinary/Nephrology No nocturia 07/2015 Genitourinary/Nephrology No urinary incontinence 11/15/2015 Musculoskeletal No stiffness 11/15/2015 Musculoskeletal No swelling 11/15/2015 Musculoskeletal No muscle weakness 2015 Musculoskeletal No myalgias 11/15/2015 Dermatologic No rash 11/15/2015 Dermatologic No sores 11/15/2015 Dermatologic No scar 11/15/2015 Neurologic No dizziness 11/15/2015 Neurologic No headache 11/15/2015 Neurologic No neck pain 11/15/2015 Neurologic No syncope 11/15/2015 Psychiatric No anxiety 11/15/2015 Psychiatric No depression 11/15/2015 Constitutional No recent illness 2015 Constitutional No chills 08/02/2015 Constitutional No fatigue 08/02/2015 Constitutional No fever 08/02/2015 Constitutional No insomnia 08/02/2015 Constitutional No malaise 08/02/2015 Eyes No blindness 08/02/2015 Eyes No vision change 08/02/2015 Ears/Nose/Throat/Neck nasal allergies Ears/Nose/Throat/Neck sore throat 2015 Ears/Nose/Throat/Neck postnasal drip Ears/Nose/Throat/Neck sinus congestion Cardiovascular No chest pain/pressure Cardiovascular No dyspnea 08/02/2015 Cardiovascular No edema 08/02/2015 Cardiovascular No exercise intolerance Cardiovascular No fatigue 08/02/2015 Cardiovascular No near-syncope/dizziness 08/02/2015 Respiratory No chest tightness 2015 Respiratory cough 08/02/2015 Respiratory No dyspnea 08/02/2015 Respiratory No pedal edema 08/02/2015 Gastrointestinal No abdominal pain 2015 Gastrointestinal No constipation 2015 Gastrointestinal No diarrhea 08/02/2015 Gastrointestinal No gastroesophageal reflux 08/02/2015 Gastrointestinal No nausea 08/02/2015 Gastrointestinal No vomiting 08/02/2015 Genitourinary/Nephrology No dysuria 08/02 Musculoskeletal No stiffness 08/02/2015 Musculoskeletal No swelling 08/02/2015 Musculoskeletal No muscle weakness 2015 Musculoskeletal No myalgias 08/02/2015 Dermatologic No rash 08/02/2015 Dermatologic No sores 08/02/2015 Dermatologic No scar 08/02/2015 Neurologic No dizziness 08/02/2015 Neurologic No headache 08/02/2015 Psychiatric No anxiety 08/02/2015 Psychiatric No depression 08/02/2015 Neurologic No alteration of consciousness 08/02/2015 Ears/Nose/Throat/Neck nasal discharge Constitutional No recent illness 2015 Constitutional No chills 07/17/2015 Constitutional No fatigue 07/17/2015 Constitutional No fever 07/17/2015 Constitutional No insomnia 07/17/2015 Constitutional No malaise 07/17/2015 Eyes No blindness 07/17/2015 Eyes No vision change 07/17/2015 Ears/Nose/Throat/Neck No dental pain 07/2015 Ears/Nose/Throat/Neck No dizziness 2015 Ears/Nose/Throat/Neck No dysphagia 2015 Ears/Nose/Throat/Neck No headache 2015 Ears/Nose/Throat/Neck No hearing loss 07/2015 Ears/Nose/Throat/Neck No nasal allergies 07/17/2015 Ears/Nose/Throat/Neck sore throat 2015 Ears/Nose/Throat/Neck No postnasal drip 07/17/2015 Ears/Nose/Throat/Neck No sinus congestion 07/17/2015 Cardiovascular No chest pain/pressure 07/2015 Cardiovascular No dyspnea 07/17/2015 Cardiovascular No edema 07/17/2015 Cardiovascular No exercise intolerance Cardiovascular No fatigue 07/17/2015 Cardiovascular No near-syncope/dizziness 07/17/2015 Respiratory No chest tightness 2015 Respiratory cough 07/17/2015 Respiratory No dyspnea 07/17/2015 Respiratory No pedal edema 07/17/2015 Gastrointestinal No abdominal pain 2015 Gastrointestinal No constipation 2015 Gastrointestinal No diarrhea 07/17/2015 Gastrointestinal No gastroesophageal reflux 07/17/2015 Gastrointestinal No nausea 07/17/2015 Gastrointestinal No vomiting 07/17/2015 Genitourinary/Nephrology No dysuria 07/17 Genitourinary/Nephrology No nocturia 07/2015 Genitourinary/Nephrology No urinary incontinence 07/17/2015 Musculoskeletal No stiffness 07/17/2015 Musculoskeletal No swelling 07/17/2015 Musculoskeletal No muscle weakness 2015 Musculoskeletal No myalgias 07/17/2015 Dermatologic No rash 07/17/2015 Dermatologic No sores 07/17/2015 Dermatologic No scar 07/17/2015 Neurologic No dizziness 07/17/2015 Neurologic No headache 07/17/2015 Neurologic No neck pain 07/17/2015 Neurologic No syncope 07/17/2015 Psychiatric No anxiety 07/17/2015 Psychiatric No depression 07/17/2015 Constitutional recent illness 04/19/2015 Constitutional No chills 04/19/2015 Constitutional fatigue 04/19/2015 Constitutional fever 04/19/2015 Ears/Nose/Throat/Neck No dental pain 10/2014 Ears/Nose/Throat/Neck No dizziness 2014 Ears/Nose/Throat/Neck No dysphagia 2014 Ears/Nose/Throat/Neck headache 2014 Ears/Nose/Throat/Neck No hearing loss 10/2014 Ears/Nose/Throat/Neck nasal allergies 10/2014 Ears/Nose/Throat/Neck nasal discharge 10/2014 Ears/Nose/Throat/Neck postnasal drip 10/2014 Ears/Nose/Throat/Neck sinus congestion Ears/Nose/Throat/Neck No sore throat 10/2014 Cardiovascular No chest pain/pressure 10/2014 Cardiovascular No dyspnea 04/19/2015 Cardiovascular No edema 04/19/2015 Cardiovascular No exercise intolerance Cardiovascular No fatigue 04/19/2015 Cardiovascular No near-syncope/dizziness 04/19/2015 Respiratory productive sputum 04/19/2015 Respiratory chest congestion 04/19/2015 Respiratory No chest tightness 2014 Respiratory cough 04/19/2015 Respiratory dyspnea 04/19/2015 Respiratory No pedal edema 04/19/2015 Respiratory wheezing 04/19/2015 Gastrointestinal No abdominal pain 2014 Gastrointestinal No constipation 2014 Gastrointestinal No diarrhea 04/19/2015 Gastrointestinal No gastroesophageal reflux 04/19/2015 Gastrointestinal No nausea 04/19/2015 Gastrointestinal No vomiting 04/19/2015 Musculoskeletal No stiffness 04/19/2015 Musculoskeletal No swelling 04/19/2015 Musculoskeletal No muscle weakness 2014 Musculoskeletal No myalgias 04/19/2015 Psychiatric No anxiety 04/19/2015 Psychiatric No depression 04/19/2015 Constitutional recent illness 04/10/2015 Constitutional No chills 04/10/2015 Constitutional fatigue 04/10/2015 Constitutional fever 04/10/2015 Constitutional No insomnia 04/10/2015 Constitutional No malaise 04/10/2015 Eyes No blindness 04/10/2015 Eyes No vision change 04/10/2015 Ears/Nose/Throat/Neck No dental pain Ears/Nose/Throat/Neck No dizziness 2014 Ears/Nose/Throat/Neck No dysphagia 2014 Ears/Nose/Throat/Neck headache 2014 Ears/Nose/Throat/Neck No hearing loss Ears/Nose/Throat/Neck nasal allergies Ears/Nose/Throat/Neck No sore throat Ears/Nose/Throat/Neck postnasal drip Ears/Nose/Throat/Neck sinus congestion Cardiovascular No chest pain/pressure Cardiovascular No dyspnea 04/10/2015 Cardiovascular No edema 04/10/2015 Cardiovascular No exercise intolerance Cardiovascular No fatigue 04/10/2015 Cardiovascular No near-syncope/dizziness 04/10/2015 Respiratory No chest tightness 2014 Respiratory cough 04/10/2015 Respiratory dyspnea 04/10/2015 Respiratory No pedal edema 04/10/2015 Gastrointestinal No abdominal pain 2014 Gastrointestinal No constipation 2014 Gastrointestinal No diarrhea 04/10/2015 Gastrointestinal No gastroesophageal reflux 04/10/2015 Gastrointestinal No nausea 04/10/2015 Gastrointestinal No vomiting 04/10/2015 Genitourinary/Nephrology No dysuria 04/10 Genitourinary/Nephrology No nocturia Genitourinary/Nephrology No urinary incontinence 04/10/2015 Musculoskeletal No stiffness 04/10/2015 Musculoskeletal No swelling 04/10/2015 Musculoskeletal No muscle weakness 2014 Musculoskeletal No myalgias 04/10/2015 Dermatologic No rash 04/10/2015 Dermatologic No sores 04/10/2015 Dermatologic No scar 04/10/2015 Neurologic No dizziness 04/10/2015 Neurologic No headache 04/10/2015 Neurologic No neck pain 04/10/2015 Neurologic No syncope 04/10/2015 Psychiatric No anxiety 04/10/2015 Psychiatric No depression 04/10/2015 Ears/Nose/Throat/Neck nasal discharge Respiratory chest congestion 04/10/2015 Respiratory productive sputum 04/10/2015 Respiratory wheezing 04/10/2015 Constitutional No recent illness 2014 Constitutional No chills 12/21/2014 Constitutional No fatigue 12/21/2014 Constitutional No fever 12/21/2014 Constitutional No insomnia 12/21/2014 Constitutional No malaise 12/21/2014 Eyes No blindness 12/21/2014 Eyes No vision change 12/21/2014 Ears/Nose/Throat/Neck No dental pain 02/2015 Ears/Nose/Throat/Neck No dizziness 2014 Ears/Nose/Throat/Neck No dysphagia 2014 Ears/Nose/Throat/Neck No headache 2014 Ears/Nose/Throat/Neck No hearing loss 02/2015 Ears/Nose/Throat/Neck No nasal allergies 12/21/2014 Ears/Nose/Throat/Neck No sore throat 02/2015 Ears/Nose/Throat/Neck No postnasal drip 12/21/2014 Ears/Nose/Throat/Neck No sinus congestion 12/21/2014 Cardiovascular No chest pain/pressure 02/2015 Cardiovascular No dyspnea 12/21/2014 Cardiovascular No edema 12/21/2014 Cardiovascular No exercise intolerance Cardiovascular No fatigue 12/21/2014 Cardiovascular No near-syncope/dizziness 12/21/2014 Respiratory No chest tightness 2014 Respiratory No cough 12/21/2014 Respiratory No dyspnea 12/21/2014 Respiratory No pedal edema 12/21/2014 Gastrointestinal No abdominal pain 2014 Gastrointestinal No constipation 2014 Gastrointestinal No diarrhea 12/21/2014 Gastrointestinal No gastroesophageal reflux 12/21/2014 Gastrointestinal No nausea 12/21/2014 Gastrointestinal No vomiting 12/21/2014 Genitourinary/Nephrology No dysuria 12/21 Genitourinary/Nephrology No nocturia 02/2015 Genitourinary/Nephrology No urinary incontinence 12/21/2014 Musculoskeletal No stiffness 12/21/2014 Musculoskeletal No swelling 12/21/2014 Musculoskeletal No muscle weakness 2014 Musculoskeletal No myalgias 12/21/2014 Dermatologic No rash 12/21/2014 Dermatologic No sores 12/21/2014 Dermatologic No scar 12/21/2014 Neurologic No dizziness 12/21/2014 Neurologic No headache 12/21/2014 Neurologic No neck pain 12/21/2014 Neurologic No syncope 12/21/2014 Psychiatric No anxiety 12/21/2014 Psychiatric No depression 12/21/2014 Physical Exam Exam Name System Name Item Name Status Result Effective Dates Notes Full Exam - General 1994 Constitutional general appearance Development: well developed 12/25/2016 None Full Exam - General 1994 Constitutional general appearance Development: appears stated age 0712/25/2016 None Full Exam - General 1994 Constitutional general appearance Hygiene/Attention to Grooming: good hygiene 12/25/2016 None Full Exam - General 1994 Eyes conjunctiva /eyelids Overall: conjunctiva clear 12/25/2016 None Full Exam - General 1994 Eyes conjunctiva /eyelids Overall: cornea clear 12/25/2016 None Full Exam - General 1994 Eyes conjunctiva /eyelids Overall: eyelids normal 12/25/2016 None Full Exam - General 1994 Eyes pupils and irises Overall: pupils equal, round, reactive to light and accomodation 12/25/2016 None Full Exam - General 1994 Ears/Nose/Throat otoscopic exam Overall: external auditory canals clear 12/25/2016 None Full Exam - General 1994 Ears/Nose/Throat otoscopic exam Overall: tympanic membranes clear 12/25/2016 None Full Exam - General 1994 Ears/Nose/Throat lips/teeth/gingiva Overall: benign lips 12/25/2016 None Full Exam - General 1994 Ears/Nose/Throat lips/teeth/gingiva Overall: normal dentition 12/25/2016 None Full Exam - General 1994 Ears/Nose/Throat oral cavity/pharynx/larynx Overall: oral mucosa clear 12/25/2016 None Full Exam - General 1994 Ears/Nose/Throat oral cavity/pharynx/larynx Overall: oropharyngeal mucosa clear 12/25/2016 None Full Exam - General 1994 Ears/Nose/Throat oral cavity/pharynx/larynx Overall: hypopharynx benign 12/25/2016 None Full Exam - General 1994 Ears/Nose/Throat oral cavity/pharynx/larynx Overall: no masses 12/25/2016 None Full Exam - General 1994 Respiratory auscultation Overall: breath sounds clear bilaterally 12/25/2016 None Full Exam - General 1994 Respiratory respiratory effort/rhythm Overall: no retractions 12/25/2016 None Full Exam - General 1994 Respiratory respiratory effort/rhythm Overall: normal rate 12/25/2016 None Full Exam - General 1994 Cardiovascular extremities Overall: no clubbing 12/25/2016 None Full Exam - General 1994 Cardiovascular auscultation of heart Overall: regular rate 12/25/2016 None Full Exam - General 1994 Cardiovascular auscultation of heart Overall: normal heart sounds 12/25/2016 None Full Exam - General 1994 Abdomen abdominal exam Overall: no tenderness 12/25/2016 None Full Exam - General 1994 Abdomen abdominal exam Overall: normal bowel sounds 12/25/2016 None Full Exam - General 1994 Lymphatic neck nodes Overall: anterior cervical chain benign 12/25/2016 None Full Exam - General 1994 Lymphatic neck nodes Overall: posterior cervical chain benign 12/25/2016 None Full Exam - General 1994 Musculoskeletal spine, ribs and pelvis Overall: spine benign 12/25/2016 None Full Exam - General 1994 Musculoskeletal spine, ribs and pelvis Overall: sacroiliac joint benign 12/25/2016 None Full Exam - General 1994 Musculoskeletal spine, ribs and pelvis Overall: good posture 12/25/2016 None Full Exam - General 1994 Musculoskeletal head and neck Overall: head atraumatic 12/25/2016 None Full Exam - General 1994 Musculoskeletal head and neck Overall: cervical spine benign 12/25/2016 None Full Exam - General 1994 Psychiatric orientation/consciousness Overall: oriented to person, place and time 12/25/2016 None Full Exam - General 1994 Psychiatric mood and affect Overall: normal mood and affect 12/25/2016 None Full Exam - General 1994 Constitutional general appearance Development: well developed 09/02/2016 None Full Exam - General 1994 Constitutional general appearance Development: appears stated age 0309/02/2016 None Full Exam - General 1994 Constitutional general appearance Hygiene/Attention to Grooming: good hygiene 09/02/2016 None Full Exam - General 1994 Eyes conjunctiva /eyelids Overall: conjunctiva clear 09/02/2016 None Full Exam - General 1994 Eyes conjunctiva /eyelids Overall: cornea clear 09/02/2016 None Full Exam - General 1994 Eyes conjunctiva /eyelids Overall: eyelids normal 09/02/2016 None Full Exam - General 1994 Eyes pupils and irises Overall: pupils equal, round, reactive to light and accomodation 09/02/2016 None Full Exam - General 1994 Ears/Nose/Throat otoscopic exam Overall: external auditory canals clear 09/02/2016 None Full Exam - General 1994 Ears/Nose/Throat otoscopic exam Overall: tympanic membranes clear 09/02/2016 None Full Exam - General 1994 Ears/Nose/Throat lips/teeth/gingiva Overall: benign lips 09/02/2016 None Full Exam - General 1994 Ears/Nose/Throat lips/teeth/gingiva Overall: normal dentition 09/02/2016 None Full Exam - General 1994 Ears/Nose/Throat oral cavity/pharynx/larynx Overall: oral mucosa clear 09/02/2016 None Full Exam - General 1994 Ears/Nose/Throat oral cavity/pharynx/larynx Overall: oropharyngeal mucosa clear 09/02/2016 None Full Exam - General 1994 Ears/Nose/Throat oral cavity/pharynx/larynx Overall: hypopharynx benign 09/02/2016 None Full Exam - General 1994 Ears/Nose/Throat oral cavity/pharynx/larynx Overall: no masses 09/02/2016 None Full Exam - General 1994 Respiratory auscultation Overall: breath sounds clear bilaterally 09/02/2016 None Full Exam - General 1994 Respiratory respiratory effort/rhythm Overall: no retractions 09/02/2016 None Full Exam - General 1994 Respiratory respiratory effort/rhythm Overall: normal rate 09/02/2016 None Full Exam - General 1994 Cardiovascular extremities Overall: no clubbing 09/02/2016 None Full Exam - General 1994 Cardiovascular auscultation of heart Overall: regular rate 09/02/2016 None Full Exam - General 1994 Cardiovascular auscultation of heart Overall: normal heart sounds 09/02/2016 None Full Exam - General 1994 Abdomen abdominal exam Overall: no tenderness 09/02/2016 None Full Exam - General 1994 Abdomen abdominal exam Overall: normal bowel sounds 09/02/2016 None Full Exam - General 1994 Lymphatic neck nodes Overall: anterior cervical chain benign 09/02/2016 None Full Exam - General 1994 Lymphatic neck nodes Overall: posterior cervical chain benign 09/02/2016 None Full Exam - General 1994 Musculoskeletal spine, ribs and pelvis Overall: spine benign 09/02/2016 None Full Exam - General 1994 Musculoskeletal spine, ribs and pelvis Overall: sacroiliac joint benign 09/02/2016 None Full Exam - General 1994 Musculoskeletal spine, ribs and pelvis Overall: good posture 09/02/2016 None Full Exam - General 1994 Musculoskeletal head and neck Overall: head atraumatic 09/02/2016 None Full Exam - General 1994 Musculoskeletal head and neck Overall: cervical spine benign 09/02/2016 None Full Exam - General 1994 Psychiatric orientation/consciousness Overall: oriented to person, place and time 09/02/2016 None Full Exam - General 1994 Psychiatric mood and affect Overall: normal mood and affect 09/02/2016 None Full Exam - General 1994 Constitutional general appearance Development: well developed 08/13/2016 None Full Exam - General 1994 Constitutional general appearance Development: appears stated age 0308/13/2016 None Full Exam - General 1994 Constitutional general appearance Hygiene/Attention to Grooming: good hygiene 08/13/2016 None Full Exam - General 1994 Eyes conjunctiva /eyelids Overall: conjunctiva clear 08/13/2016 None Full Exam - General 1994 Eyes conjunctiva /eyelids Overall: cornea clear 08/13/2016 None Full Exam - General 1994 Eyes conjunctiva /eyelids Overall: eyelids normal 08/13/2016 None Full Exam - General 1994 Eyes pupils and irises Overall: pupils equal, round, reactive to light and accomodation 08/13/2016 None Full Exam - General 1994 Ears/Nose/Throat otoscopic exam Overall: external auditory canals clear 08/13/2016 None Full Exam - General 1994 Ears/Nose/Throat otoscopic exam Overall: tympanic membranes clear 08/13/2016 None Full Exam - General 1994 Ears/Nose/Throat lips/teeth/gingiva Overall: benign lips 08/13/2016 None Full Exam - General 1994 Ears/Nose/Throat lips/teeth/gingiva Overall: normal dentition 08/13/2016 None Full Exam - General 1994 Ears/Nose/Throat oral cavity/pharynx/larynx Overall: oral mucosa clear 08/13/2016 None Full Exam - General 1994 Ears/Nose/Throat oral cavity/pharynx/larynx Overall: oropharyngeal mucosa clear 08/13/2016 None Full Exam - General 1994 Ears/Nose/Throat oral cavity/pharynx/larynx Overall: hypopharynx benign 08/13/2016 None Full Exam - General 1994 Ears/Nose/Throat oral cavity/pharynx/larynx Overall: no masses 08/13/2016 None Full Exam - General 1994 Respiratory auscultation Overall: breath sounds clear bilaterally 08/13/2016 None Full Exam - General 1994 Respiratory respiratory effort/rhythm Overall: no retractions 08/13/2016 None Full Exam - General 1994 Respiratory respiratory effort/rhythm Overall: normal rate 08/13/2016 None Full Exam - General 1994 Cardiovascular extremities Overall: no clubbing 08/13/2016 None Full Exam - General 1994 Cardiovascular auscultation of heart Overall: regular rate 08/13/2016 None Full Exam - General 1994 Cardiovascular auscultation of heart Overall: normal heart sounds 08/13/2016 None Full Exam - General 1994 Abdomen abdominal exam Overall: no tenderness 08/13/2016 None Full Exam - General 1994 Abdomen abdominal exam Overall: normal bowel sounds 08/13/2016 None Full Exam - General 1994 Lymphatic neck nodes Overall: anterior cervical chain benign 08/13/2016 None Full Exam - General 1994 Lymphatic neck nodes Overall: posterior cervical chain benign 08/13/2016 None Full Exam - General 1994 Musculoskeletal spine, ribs and pelvis Overall: spine benign 08/13/2016 None Full Exam - General 1994 Musculoskeletal spine, ribs and pelvis Overall: sacroiliac joint benign 08/13/2016 None Full Exam - General 1994 Musculoskeletal spine, ribs and pelvis Overall: good posture 08/13/2016 None Full Exam - General 1994 Musculoskeletal head and neck Overall: head atraumatic 08/13/2016 None Full Exam - General 1994 Musculoskeletal head and neck Overall: cervical spine benign 08/13/2016 None Full Exam - General 1994 Psychiatric orientation/consciousness Overall: oriented to person, place and time 08/13/2016 None Full Exam - General 1994 Psychiatric mood and affect Overall: normal mood and affect 08/13/2016 None Full Exam - General 1994 Constitutional general appearance Development: well developed 07/14/2016 None Full Exam - General 1994 Constitutional general appearance Development: appears stated age 0107/14/2016 None Full Exam - General 1994 Constitutional general appearance Hygiene/Attention to Grooming: good hygiene 07/14/2016 None Full Exam - General 1994 Eyes conjunctiva /eyelids Overall: conjunctiva clear 07/14/2016 None Full Exam - General 1994 Eyes conjunctiva /eyelids Overall: cornea clear 07/14/2016 None Full Exam - General 1994 Eyes conjunctiva /eyelids Overall: eyelids normal 07/14/2016 None Full Exam - General 1994 Eyes pupils and irises Overall: pupils equal, round, reactive to light and accomodation 07/14/2016 None Full Exam - General 1994 Ears/Nose/Throat otoscopic exam Overall: external auditory canals clear 07/14/2016 None Full Exam - General 1994 Ears/Nose/Throat otoscopic exam Overall: tympanic membranes clear 07/14/2016 None Full Exam - General 1994 Ears/Nose/Throat lips/teeth/gingiva Overall: benign lips 07/14/2016 None Full Exam - General 1994 Ears/Nose/Throat lips/teeth/gingiva Overall: normal dentition 07/14/2016 None Full Exam - General 1994 Ears/Nose/Throat oral cavity/pharynx/larynx Overall: oral mucosa clear 07/14/2016 None Full Exam - General 1994 Ears/Nose/Throat oral cavity/pharynx/larynx Overall: oropharyngeal mucosa clear 07/14/2016 None Full Exam - General 1994 Ears/Nose/Throat oral cavity/pharynx/larynx Overall: hypopharynx benign 07/14/2016 None Full Exam - General 1994 Ears/Nose/Throat oral cavity/pharynx/larynx Overall: no masses 07/14/2016 None Full Exam - General 1994 Respiratory auscultation Overall: breath sounds clear bilaterally 07/14/2016 None Full Exam - General 1994 Respiratory respiratory effort/rhythm Overall: no retractions 07/14/2016 None Full Exam - General 1994 Respiratory respiratory effort/rhythm Overall: normal rate 07/14/2016 None Full Exam - General 1994 Cardiovascular extremities Overall: no clubbing 07/14/2016 None Full Exam - General 1994 Cardiovascular auscultation of heart Overall: regular rate 07/14/2016 None Full Exam - General 1994 Cardiovascular auscultation of heart Overall: normal heart sounds 07/14/2016 None Full Exam - General 1994 Abdomen abdominal exam Overall: no tenderness 07/14/2016 None Full Exam - General 1994 Abdomen abdominal exam Overall: normal bowel sounds 07/14/2016 None Full Exam - General 1994 Lymphatic neck nodes Overall: anterior cervical chain benign 07/14/2016 None Full Exam - General 1994 Lymphatic neck nodes Overall: posterior cervical chain benign 07/14/2016 None Full Exam - General 1994 Musculoskeletal spine, ribs and pelvis Overall: spine benign 07/14/2016 None Full Exam - General 1994 Musculoskeletal spine, ribs and pelvis Overall: sacroiliac joint benign 07/14/2016 None Full Exam - General 1994 Musculoskeletal spine, ribs and pelvis Overall: good posture 07/14/2016 None Full Exam - General 1994 Musculoskeletal head and neck Overall: head atraumatic 07/14/2016 None Full Exam - General 1994 Musculoskeletal head and neck Overall: cervical spine benign 07/14/2016 None Full Exam - General 1994 Psychiatric orientation/consciousness Overall: oriented to person, place and time 07/14/2016 None Full Exam - General 1994 Psychiatric mood and affect Overall: normal mood and affect 07/14/2016 None Full Exam - Cardiology Respiratory auscultation Overall: breath sounds clear bilaterally 06/25/2016 None Full Exam - Cardiology Respiratory auscultation Diffuse: diminished 06/25/2016 None Full Exam - Cardiology Respiratory respiratory effort/rhythm Overall: no retractions 06/25/2016 None Full Exam - Cardiology Respiratory respiratory effort/rhythm Overall: normal rate 06/25/2016 None Full Exam - ENT Constitutional general appearance Overall: well nourished 06/18/2016 None Full Exam - ENT Constitutional general appearance Overall: well developed 06/18/2016 None Full Exam - ENT Constitutional general appearance Overall: in no acute distress 06/18/2016 None Full Exam - ENT Ears/Nose/Throat otoscopic exam Overall: external auditory canals normal 06/18/2016 None Full Exam - ENT Ears/Nose/Throat otoscopic exam Left tympanic membrane: air -fluid level 06/18/2016 None Full Exam - ENT Ears/Nose/Throat otoscopic exam Right tympanic membrane: air-fluid level 06/18/2016 None Full Exam - ENT Ears/Nose/Throat lips/ teeth/gingiva Overall: benign lips 06/18/2016 None Full Exam - ENT Ears/Nose/Throat oropharynx Overall: oral mucosa clear 06/18/2016 None Full Exam - ENT Ears/Nose/Throat oropharynx Posterior Pharynx: clear post nasal drainage 06/18/2016 None Full Exam - ENT Ears/Nose/Throat oropharynx Posterior Pharynx: erythema 06/18/2016 None Full Exam - ENT Respiratory inspection Overall: no retractions 06/18/2016 None Full Exam - ENT Respiratory inspection Overall: normal rate 09/2016 None Full Exam - ENT Cardiovascular auscultation of heart Rate: normal rate 06/18/2016 None Full Exam - ENT Cardiovascular auscultation of heart Rhythm: regular rhythm 06/18/2016 None Full Exam - ENT Lymphatic palpation of lymph nodes Overall: anterior cervical chain benign 06/18/2016 None Full Exam - ENT Lymphatic palpation of lymph nodes Overall: posterior cervical chain benign 06/18/2016 None Full Exam - ENT Neurologic mood and affect Overall: normal mood 06/18/2016 None Full Exam - ENT Neurologic mood and affect Overall: normal affect 06/18/2016 None Full Exam - ENT Neurologic orientation Overall: oriented to person, place and time 06/18/2016 None Full Exam - ENT Respiratory auscultation Diffuse: diminished None Full Exam - ENT Constitutional general appearance Overall: well nourished 05/07/2016 None Full Exam - ENT Constitutional general appearance Overall: well developed 05/07/2016 None Full Exam - ENT Constitutional general appearance Overall: in no acute distress 05/07/2016 None Full Exam - ENT Ears/Nose/Throat otoscopic exam Overall: external auditory canals normal 05/07/2016 None Full Exam - ENT Ears/Nose/Throat otoscopic exam Left tympanic membrane: air -fluid level 05/07/2016 None Full Exam - ENT Ears/Nose/Throat otoscopic exam Right tympanic membrane: air-fluid level 05/07/2016 None Full Exam - ENT Ears/Nose/Throat lips/ teeth/gingiva Overall: benign lips 05/07/2016 None Full Exam - ENT Ears/Nose/Throat oropharynx Overall: oral mucosa clear 05/07/2016 None Full Exam - ENT Ears/Nose/Throat oropharynx Posterior Pharynx: clear post nasal drainage 05/07/2016 None Full Exam - ENT Respiratory inspection Overall: no retractions 05/07/2016 None Full Exam - ENT Respiratory inspection Overall: normal rate None Full Exam - ENT Cardiovascular auscultation of heart Rate: normal rate 05/07/2016 None Full Exam - ENT Cardiovascular auscultation of heart Rhythm: regular rhythm 05/07/2016 None Full Exam - ENT Lymphatic palpation of lymph nodes Overall: anterior cervical chain benign 05/07/2016 None Full Exam - ENT Lymphatic palpation of lymph nodes Overall: posterior cervical chain benign 05/07/2016 None Full Exam - ENT Neurologic mood and affect Overall: normal mood 05/07/2016 None Full Exam - ENT Neurologic mood and affect Overall: normal affect 05/07/2016 None Full Exam - ENT Neurologic orientation Overall: oriented to person, place and time 05/07/2016 None Full Exam - ENT Respiratory auscultation Diffuse: diminished None Full Exam - General 1994 Constitutional general appearance Development: well developed 02/28/2016 None Full Exam - General 1994 Constitutional general appearance Development: appears stated age 0902/28/2016 None Full Exam - General 1994 Constitutional general appearance Hygiene/Attention to Grooming: good hygiene 02/28/2016 None Full Exam - General 1994 Eyes conjunctiva /eyelids Overall: conjunctiva clear 02/28/2016 None Full Exam - General 1994 Eyes conjunctiva /eyelids Overall: cornea clear 02/28/2016 None Full Exam - General 1994 Eyes conjunctiva /eyelids Overall: eyelids normal 02/28/2016 None Full Exam - General 1994 Eyes pupils and irises Overall: pupils equal, round, reactive to light and accomodation 02/28/2016 None Full Exam - General 1994 Ears/Nose/Throat otoscopic exam Overall: external auditory canals clear 02/28/2016 None Full Exam - General 1994 Ears/Nose/Throat otoscopic exam Overall: tympanic membranes clear 02/28/2016 None Full Exam - General 1994 Ears/Nose/Throat lips/teeth/gingiva Overall: benign lips 02/28/2016 None Full Exam - General 1994 Ears/Nose/Throat lips/teeth/gingiva Overall: normal dentition 02/28/2016 None Full Exam - General 1994 Ears/Nose/Throat oral cavity/pharynx/larynx Overall: oral mucosa clear 02/28/2016 None Full Exam - General 1994 Ears/Nose/Throat oral cavity/pharynx/larynx Overall: oropharyngeal mucosa clear 02/28/2016 None Full Exam - General 1994 Ears/Nose/Throat oral cavity/pharynx/larynx Overall: hypopharynx benign 02/28/2016 None Full Exam - General 1994 Ears/Nose/Throat oral cavity/pharynx/larynx Overall: no masses 02/28/2016 None Full Exam - General 1994 Respiratory auscultation Overall: breath sounds clear bilaterally 02/28/2016 None Full Exam - General 1994 Respiratory respiratory effort/rhythm Overall: no retractions 02/28/2016 None Full Exam - General 1994 Respiratory respiratory effort/rhythm Overall: normal rate 02/28/2016 None Full Exam - General 1994 Cardiovascular extremities Overall: no clubbing 02/28/2016 None Full Exam - General 1994 Cardiovascular auscultation of heart Overall: regular rate 02/28/2016 None Full Exam - General 1994 Cardiovascular auscultation of heart Overall: normal heart sounds 02/28/2016 None Full Exam - General 1994 Abdomen abdominal exam Overall: no tenderness 02/28/2016 None Full Exam - General 1994 Abdomen abdominal exam Overall: normal bowel sounds 02/28/2016 None Full Exam - General 1994 Lymphatic neck nodes Overall: anterior cervical chain benign 02/28/2016 None Full Exam - General 1994 Lymphatic neck nodes Overall: posterior cervical chain benign 02/28/2016 None Full Exam - General 1994 Musculoskeletal spine, ribs and pelvis Overall: spine benign 02/28/2016 None Full Exam - General 1994 Musculoskeletal spine, ribs and pelvis Overall: sacroiliac joint benign 02/28/2016 None Full Exam - General 1994 Musculoskeletal spine, ribs and pelvis Overall: good posture 02/28/2016 None Full Exam - General 1994 Musculoskeletal head and neck Overall: head atraumatic 02/28/2016 None Full Exam - General 1994 Musculoskeletal head and neck Overall: cervical spine benign 02/28/2016 None Full Exam - General 1994 Neurologic deep tendon reflexes Overall: deep tendon reflexes intact 02/28/2016 None Full Exam - General 1994 Neurologic cranial nerves Overall: crainial nerves 2 - 12 grossly intact 02/28/2016 None Full Exam - General 1994 Psychiatric orientation/consciousness Overall: oriented to person, place and time 02/28/2016 None Full Exam - General 1994 Psychiatric mood and affect Overall: normal mood and affect 02/28/2016 None Full Exam - General 1994 Integument inspection of skin Pigmentation: ecchymosis 02/28/2016 on arms and legs - scattered Full Exam - General 1994 Eyes conjunctiva /eyelids Overall: conjunctiva clear 01/28/2016 None Full Exam - General 1994 Eyes conjunctiva /eyelids Overall: cornea clear 01/28/2016 None Full Exam - General 1994 Eyes conjunctiva /eyelids Overall: eyelids normal 01/28/2016 None Full Exam - General 1994 Ears/Nose/Throat otoscopic exam Overall: external auditory canals clear 01/28/2016 None Full Exam - General 1994 Ears/Nose/Throat otoscopic exam Overall: tympanic membranes clear 01/28/2016 None Full Exam - General 1994 Ears/Nose/Throat internal nose Drainage: clear 01/28/2016 None Full Exam - General 1994 Ears/Nose/Throat internal nose Sinus tenderness: left maxillary 01/28/2016 None Full Exam - General 1994 Ears/Nose/Throat internal nose Sinus tenderness: right maxillary 01/28/2016 None Full Exam - General 1994 Ears/Nose/Throat lips/teeth/gingiva Overall: benign lips 01/28/2016 None Full Exam - General 1994 Ears/Nose/Throat lips/teeth/gingiva Overall: normal dentition 01/28/2016 None Full Exam - General 1994 Ears/Nose/Throat oral cavity/pharynx/larynx Overall: oral mucosa clear 01/28/2016 None Full Exam - General 1994 Ears/Nose/Throat oral cavity/pharynx/larynx Overall: oropharyngeal mucosa clear 01/28/2016 None Full Exam - General 1994 Ears/Nose/Throat oral cavity/pharynx/larynx Overall: no masses 01/28/2016 None Full Exam - General 1994 Ears/Nose/Throat oral cavity/pharynx/larynx Posterior Pharynx: clear post nasal drainage 01/28/2016 None Full Exam - General 1994 Respiratory auscultation Overall: breath sounds clear bilaterally 01/28/2016 None Full Exam - General 1994 Respiratory respiratory effort/rhythm Overall: no retractions 01/28/2016 None Full Exam - General 1994 Respiratory respiratory effort/rhythm Overall: normal rate 01/28/2016 None Full Exam - General 1994 Cardiovascular extremities Overall: no clubbing 01/28/2016 None Full Exam - General 1994 Cardiovascular auscultation of heart Overall: regular rate 01/28/2016 None Full Exam - General 1994 Cardiovascular auscultation of heart Overall: normal heart sounds 01/28/2016 None Full Exam - General 1994 Abdomen abdominal exam Overall: no tenderness 01/28/2016 None Full Exam - General 1994 Abdomen abdominal exam Overall: normal bowel sounds 01/28/2016 None Full Exam - General 1994 Lymphatic neck nodes Overall: anterior cervical chain benign 01/28/2016 None Full Exam - General 1994 Lymphatic neck nodes Overall: posterior cervical chain benign 01/28/2016 None Full Exam - General 1994 Musculoskeletal head and neck Overall: head atraumatic 01/28/2016 None Full Exam - General 1994 Neurologic cranial nerves Overall: crainial nerves 2 - 12 grossly intact 01/28/2016 None Full Exam - General 1994 Psychiatric orientation/consciousness Overall: oriented to person, place and time 01/28/2016 None Full Exam - General 1994 Psychiatric mood and affect Overall: normal mood and affect 01/28/2016 None Full Exam - General 1994 Constitutional general appearance Overall: well nourished 01/28/2016 None Full Exam - General 1994 Constitutional general appearance Overall: in no acute distress 01/28/2016 None Full Exam - General 1994 Constitutional general appearance Overall: well developed 01/28/2016 None Full Exam - General 1994 Constitutional general appearance Hygiene/Attention to Grooming: good hygiene 01/28/2016 None Full Exam - General 1994 Respiratory auscultation Lower lung field: expiratory wheezes 01/28/2016 None Full Exam - General 1994 Integument inspection of skin Overall: no rash, lesions 01/28/2016 None Full Exam - General 1994 Psychiatric appearance Overall: well-groomed, good eye contact 01/28/2016 None Full Exam - General 1994 Psychiatric speech Overall: normal quality, no aphasia 01/28/2016 None Full Exam - General 1994 Psychiatric speech Overall: normal quality, quantity, rate 01/28/2016 None Full Exam - General 1994 Constitutional general appearance Development: well developed 11/15/2015 None Full Exam - General 1994 Constitutional general appearance Development: appears stated age 0611/15/2015 None Full Exam - General 1994 Constitutional general appearance Hygiene/Attention to Grooming: good hygiene 11/15/2015 None Full Exam - General 1994 Eyes conjunctiva /eyelids Overall: conjunctiva clear 11/15/2015 None Full Exam - General 1994 Eyes conjunctiva /eyelids Overall: cornea clear 11/15/2015 None Full Exam - General 1994 Eyes conjunctiva /eyelids Overall: eyelids normal 11/15/2015 None Full Exam - General 1994 Eyes pupils and irises Overall: pupils equal, round, reactive to light and accomodation 11/15/2015 None Full Exam - General 1994 Ears/Nose/Throat otoscopic exam Overall: external auditory canals clear 11/15/2015 None Full Exam - General 1994 Ears/Nose/Throat otoscopic exam Overall: tympanic membranes clear 11/15/2015 None Full Exam - General 1994 Ears/Nose/Throat lips/teeth/gingiva Overall: benign lips 11/15/2015 None Full Exam - General 1994 Ears/Nose/Throat lips/teeth/gingiva Overall: normal dentition 11/15/2015 None Full Exam - General 1994 Ears/Nose/Throat oral cavity/pharynx/larynx Overall: oral mucosa clear 11/15/2015 None Full Exam - General 1994 Ears/Nose/Throat oral cavity/pharynx/larynx Overall: oropharyngeal mucosa clear 11/15/2015 None Full Exam - General 1994 Ears/Nose/Throat oral cavity/pharynx/larynx Overall: hypopharynx benign 11/15/2015 None Full Exam - General 1994 Ears/Nose/Throat oral cavity/pharynx/larynx Overall: no masses 11/15/2015 None Full Exam - General 1994 Respiratory auscultation Overall: breath sounds clear bilaterally 11/15/2015 None Full Exam - General 1994 Respiratory respiratory effort/rhythm Overall: no retractions 11/15/2015 None Full Exam - General 1994 Respiratory respiratory effort/rhythm Overall: normal rate 11/15/2015 None Full Exam - General 1994 Cardiovascular extremities Overall: no clubbing 11/15/2015 None Full Exam - General 1994 Cardiovascular auscultation of heart Overall: regular rate 11/15/2015 None Full Exam - General 1994 Cardiovascular auscultation of heart Overall: normal heart sounds 11/15/2015 None Full Exam - General 1994 Abdomen abdominal exam Overall: no tenderness 11/15/2015 None Full Exam - General 1994 Abdomen abdominal exam Overall: normal bowel sounds 11/15/2015 None Full Exam - General 1994 Lymphatic neck nodes Overall: anterior cervical chain benign 11/15/2015 None Full Exam - General 1994 Lymphatic neck nodes Overall: posterior cervical chain benign 11/15/2015 None Full Exam - General 1994 Musculoskeletal spine, ribs and pelvis Overall: spine benign 11/15/2015 None Full Exam - General 1994 Musculoskeletal spine, ribs and pelvis Overall: sacroiliac joint benign 11/15/2015 None Full Exam - General 1994 Musculoskeletal spine, ribs and pelvis Overall: good posture 11/15/2015 None Full Exam - General 1994 Musculoskeletal head and neck Overall: head atraumatic 11/15/2015 None Full Exam - General 1994 Musculoskeletal head and neck Overall: cervical spine benign 11/15/2015 None Full Exam - General 1994 Integument inspection of skin Overall: few scattered moles, no gross abnormalities 11/15/2015 None Full Exam - General 1994 Neurologic deep tendon reflexes Overall: deep tendon reflexes intact 11/15/2015 None Full Exam - General 1994 Neurologic cranial nerves Overall: crainial nerves 2 - 12 grossly intact 11/15/2015 None Full Exam - General 1994 Psychiatric orientation/consciousness Overall: oriented to person, place and time 11/15/2015 None Full Exam - General 1994 Psychiatric mood and affect Overall: normal mood and affect 11/15/2015 None Full Exam - General 1994 Constitutional general appearance Development: well developed 08/02/2015 None Full Exam - General 1994 Constitutional general appearance Development: appears stated age 0208/02/2015 None Full Exam - General 1994 Constitutional general appearance Hygiene/Attention to Grooming: good hygiene 08/02/2015 None Full Exam - General 1994 Eyes conjunctiva /eyelids Overall: conjunctiva clear 08/02/2015 None Full Exam - General 1994 Eyes conjunctiva /eyelids Overall: cornea clear 08/02/2015 None Full Exam - General 1994 Eyes conjunctiva /eyelids Overall: eyelids normal 08/02/2015 None Full Exam - General 1994 Eyes pupils and irises Overall: pupils equal, round, reactive to light and accomodation 08/02/2015 None Full Exam - General 1994 Ears/Nose/Throat otoscopic exam Overall: external auditory canals clear 08/02/2015 None Full Exam - General 1994 Ears/Nose/Throat lips/teeth/gingiva Overall: benign lips 08/02/2015 None Full Exam - General 1994 Ears/Nose/Throat lips/teeth/gingiva Overall: normal dentition 08/02/2015 None Full Exam - General 1994 Ears/Nose/Throat oral cavity/pharynx/larynx Overall: oral mucosa clear 08/02/2015 None Full Exam - General 1994 Ears/Nose/Throat oral cavity/pharynx/larynx Overall: oropharyngeal mucosa clear 08/02/2015 None Full Exam - General 1994 Ears/Nose/Throat oral cavity/pharynx/larynx Overall: no masses 08/02/2015 None Full Exam - General 1994 Respiratory auscultation Overall: breath sounds clear bilaterally 08/02/2015 None Full Exam - General 1994 Respiratory respiratory effort/rhythm Overall: no retractions 08/02/2015 None Full Exam - General 1994 Respiratory respiratory effort/rhythm Overall: normal rate 08/02/2015 None Full Exam - General 1994 Cardiovascular extremities Overall: no clubbing 08/02/2015 None Full Exam - General 1994 Cardiovascular auscultation of heart Overall: regular rate 08/02/2015 None Full Exam - General 1994 Cardiovascular auscultation of heart Overall: normal heart sounds 08/02/2015 None Full Exam - General 1994 Abdomen abdominal exam Overall: no tenderness 08/02/2015 None Full Exam - General 1994 Abdomen abdominal exam Overall: normal bowel sounds 08/02/2015 None Full Exam - General 1994 Lymphatic neck nodes Overall: anterior cervical chain benign 08/02/2015 None Full Exam - General 1994 Lymphatic neck nodes Overall: posterior cervical chain benign 08/02/2015 None Full Exam - General 1994 Musculoskeletal spine, ribs and pelvis Overall: spine benign 08/02/2015 None Full Exam - General 1994 Musculoskeletal spine, ribs and pelvis Overall: sacroiliac joint benign 08/02/2015 None Full Exam - General 1994 Musculoskeletal spine, ribs and pelvis Overall: good posture 08/02/2015 None Full Exam - General 1994 Musculoskeletal head and neck Overall: head atraumatic 08/02/2015 None Full Exam - General 1994 Musculoskeletal head and neck Overall: cervical spine benign 08/02/2015 None Full Exam - General 1994 Integument inspection of skin Overall: few scattered moles, no gross abnormalities 08/02/2015 None Full Exam - General 1994 Neurologic deep tendon reflexes Overall: deep tendon reflexes intact 08/02/2015 None Full Exam - General 1994 Neurologic cranial nerves Overall: crainial nerves 2 - 12 grossly intact 08/02/2015 None Full Exam - General 1994 Psychiatric orientation/consciousness Overall: oriented to person, place and time 08/02/2015 None Full Exam - General 1994 Psychiatric mood and affect Overall: normal mood and affect 08/02/2015 None Full Exam - General 1994 Ears/Nose/Throat internal nose Sinus tenderness: right maxillary 08/02/2015 None Full Exam - General 1994 Ears/Nose/Throat internal nose Sinus tenderness: left maxillary 08/02/2015 None Full Exam - General 1994 Ears/Nose/Throat internal nose Drainage: clear 08/02/2015 None Full Exam - General 1994 Ears/Nose/Throat oral cavity/pharynx/larynx Posterior Pharynx: clear post nasal drainage 08/02/2015 None Full Exam - General 1994 Ears/Nose/Throat otoscopic exam Overall: tympanic membranes clear 08/02/2015 None Full Exam - General 1994 Constitutional general appearance Development: well developed 07/17/2015 None Full Exam - General 1994 Constitutional general appearance Development: appears stated age 0207/17/2015 None Full Exam - General 1994 Constitutional general appearance Hygiene/Attention to Grooming: good hygiene 07/17/2015 None Full Exam - General 1994 Eyes conjunctiva /eyelids Overall: conjunctiva clear 07/17/2015 None Full Exam - General 1994 Eyes conjunctiva /eyelids Overall: cornea clear 07/17/2015 None Full Exam - General 1994 Eyes conjunctiva /eyelids Overall: eyelids normal 07/17/2015 None Full Exam - General 1994 Eyes pupils and irises Overall: pupils equal, round, reactive to light and accomodation 07/17/2015 None Full Exam - General 1994 Ears/Nose/Throat otoscopic exam Overall: external auditory canals clear 07/17/2015 None Full Exam - General 1994 Ears/Nose/Throat otoscopic exam Overall: tympanic membranes clear 07/17/2015 None Full Exam - General 1994 Ears/Nose/Throat lips/teeth/gingiva Overall: benign lips 07/17/2015 None Full Exam - General 1994 Ears/Nose/Throat lips/teeth/gingiva Overall: normal dentition 07/17/2015 None Full Exam - General 1994 Ears/Nose/Throat oral cavity/pharynx/larynx Overall: oral mucosa clear 07/17/2015 None Full Exam - General 1994 Ears/Nose/Throat oral cavity/pharynx/larynx Overall: oropharyngeal mucosa clear 07/17/2015 None Full Exam - General 1994 Ears/Nose/Throat oral cavity/pharynx/larynx Overall: hypopharynx benign 07/17/2015 None Full Exam - General 1994 Ears/Nose/Throat oral cavity/pharynx/larynx Overall: no masses 07/17/2015 None Full Exam - General 1994 Respiratory auscultation Overall: breath sounds clear bilaterally 07/17/2015 None Full Exam - General 1994 Respiratory respiratory effort/rhythm Overall: no retractions 07/17/2015 None Full Exam - General 1994 Respiratory respiratory effort/rhythm Overall: normal rate 07/17/2015 None Full Exam - General 1994 Cardiovascular extremities Overall: no clubbing 07/17/2015 None Full Exam - General 1994 Cardiovascular auscultation of heart Overall: regular rate 07/17/2015 None Full Exam - General 1994 Cardiovascular auscultation of heart Overall: normal heart sounds 07/17/2015 None Full Exam - General 1994 Abdomen abdominal exam Overall: no tenderness 07/17/2015 None Full Exam - General 1994 Abdomen abdominal exam Overall: normal bowel sounds 07/17/2015 None Full Exam - General 1994 Lymphatic neck nodes Overall: anterior cervical chain benign 07/17/2015 None Full Exam - General 1994 Lymphatic neck nodes Overall: posterior cervical chain benign 07/17/2015 None Full Exam - General 1994 Musculoskeletal spine, ribs and pelvis Overall: spine benign 07/17/2015 None Full Exam - General 1994 Musculoskeletal spine, ribs and pelvis Overall: sacroiliac joint benign 07/17/2015 None Full Exam - General 1994 Musculoskeletal spine, ribs and pelvis Overall: good posture 07/17/2015 None Full Exam - General 1994 Musculoskeletal head and neck Overall: head atraumatic 07/17/2015 None Full Exam - General 1994 Musculoskeletal head and neck Overall: cervical spine benign 07/17/2015 None Full Exam - General 1994 Integument inspection of skin Overall: few scattered moles, no gross abnormalities 07/17/2015 None Full Exam - General 1994 Neurologic deep tendon reflexes Overall: deep tendon reflexes intact 07/17/2015 None Full Exam - General 1994 Neurologic cranial nerves Overall: crainial nerves 2 - 12 grossly intact 07/17/2015 None Full Exam - General 1994 Psychiatric orientation/consciousness Overall: oriented to person, place and time 07/17/2015 None Full Exam - General 1994 Psychiatric mood and affect Overall: normal mood and affect 07/17/2015 None Full Exam - General 1994 Constitutional general appearance Development: well developed 04/19/2015 None Full Exam - General 1994 Constitutional general appearance Development: appears stated age 1104/19/2015 None Full Exam - General 1994 Constitutional general appearance Hygiene/Attention to Grooming: good hygiene 04/19/2015 None Full Exam - General 1994 Eyes conjunctiva /eyelids Overall: conjunctiva clear 04/19/2015 None Full Exam - General 1994 Eyes conjunctiva /eyelids Overall: cornea clear 04/19/2015 None Full Exam - General 1994 Eyes conjunctiva /eyelids Overall: eyelids normal 04/19/2015 None Full Exam - General 1994 Eyes pupils and irises Overall: pupils equal, round, reactive to light and accomodation 04/19/2015 None Full Exam - General 1994 Ears/Nose/Throat otoscopic exam Overall: external auditory canals clear 04/19/2015 None Full Exam - General 1994 Ears/Nose/Throat otoscopic exam Overall: tympanic membranes clear 04/19/2015 None Full Exam - General 1994 Ears/Nose/Throat lips/teeth/gingiva Overall: benign lips 04/19/2015 None Full Exam - General 1994 Ears/Nose/Throat lips/teeth/gingiva Overall: normal dentition 04/19/2015 None Full Exam - General 1994 Ears/Nose/Throat oral cavity/pharynx/larynx Overall: oral mucosa clear 04/19/2015 None Full Exam - General 1994 Ears/Nose/Throat oral cavity/pharynx/larynx Overall: hypopharynx benign 04/19/2015 None Full Exam - General 1994 Ears/Nose/Throat oral cavity/pharynx/larynx Overall: no masses 04/19/2015 None Full Exam - General 1994 Ears/Nose/Throat oral cavity/pharynx/larynx Oropharynx: erythema 04/19/2015 None Full Exam - General 1994 Respiratory auscultation Upper lung field: expiratory wheezes 04/19/2015 None Full Exam - General 1994 Respiratory auscultation Lower lung field: diminished 04/19/2015 None Full Exam - General 1994 Respiratory auscultation Lower lung field: inspiratory wheezes 04/19/2015 None Full Exam - General 1994 Respiratory auscultation Lower lung field: expiratory wheezes 04/19/2015 None Full Exam - General 1994 Respiratory respiratory effort/rhythm Overall: no retractions 04/19/2015 None Full Exam - General 1994 Respiratory respiratory effort/rhythm Rate: tachypnea 04/19/2015 None Full Exam - General 1994 Cardiovascular extremities Overall: no clubbing 04/19/2015 None Full Exam - General 1994 Cardiovascular auscultation of heart Overall: regular rate 04/19/2015 None Full Exam - General 1994 Cardiovascular auscultation of heart Overall: normal heart sounds 04/19/2015 None Full Exam - General 1994 Abdomen abdominal exam Overall: no tenderness 04/19/2015 None Full Exam - General 1994 Abdomen abdominal exam Overall: normal bowel sounds 04/19/2015 None Full Exam - General 1994 Integument inspection of skin Overall: few scattered moles, no gross abnormalities 04/19/2015 None Full Exam - General 1994 Neurologic cranial nerves Overall: crainial nerves 2 - 12 grossly intact 04/19/2015 None Full Exam - General 1994 Psychiatric orientation/consciousness Overall: oriented to person, place and time 04/19/2015 None Full Exam - General 1994 Psychiatric mood and affect Overall: normal mood and affect 04/19/2015 None Full Exam - General 1994 Constitutional general appearance Development: well developed 04/10/2015 None Full Exam - General 1994 Constitutional general appearance Development: appears stated age 1004/10/2015 None Full Exam - General 1994 Constitutional general appearance Hygiene/Attention to Grooming: good hygiene 04/10/2015 None Full Exam - General 1994 Eyes conjunctiva /eyelids Overall: conjunctiva clear 04/10/2015 None Full Exam - General 1994 Eyes conjunctiva /eyelids Overall: cornea clear 04/10/2015 None Full Exam - General 1994 Eyes conjunctiva /eyelids Overall: eyelids normal 04/10/2015 None Full Exam - General 1994 Eyes pupils and irises Overall: pupils equal, round, reactive to light and accomodation 04/10/2015 None Full Exam - General 1994 Ears/Nose/Throat otoscopic exam Overall: external auditory canals clear 04/10/2015 None Full Exam - General 1994 Ears/Nose/Throat otoscopic exam Overall: tympanic membranes clear 04/10/2015 None Full Exam - General 1994 Ears/Nose/Throat lips/teeth/gingiva Overall: benign lips 04/10/2015 None Full Exam - General 1994 Ears/Nose/Throat lips/teeth/gingiva Overall: normal dentition 04/10/2015 None Full Exam - General 1994 Ears/Nose/Throat oral cavity/pharynx/larynx Overall: oral mucosa clear 04/10/2015 None Full Exam - General 1994 Ears/Nose/Throat oral cavity/pharynx/larynx Overall: hypopharynx benign 04/10/2015 None Full Exam - General 1994 Ears/Nose/Throat oral cavity/pharynx/larynx Overall: no masses 04/10/2015 None Full Exam - General 1994 Cardiovascular extremities Overall: no clubbing 04/10/2015 None Full Exam - General 1994 Cardiovascular auscultation of heart Overall: regular rate 04/10/2015 None Full Exam - General 1994 Cardiovascular auscultation of heart Overall: normal heart sounds 04/10/2015 None Full Exam - General 1994 Abdomen abdominal exam Overall: no tenderness 04/10/2015 None Full Exam - General 1994 Abdomen abdominal exam Overall: normal bowel sounds 04/10/2015 None Full Exam - General 1994 Integument inspection of skin Overall: few scattered moles, no gross abnormalities 04/10/2015 None Full Exam - General 1994 Neurologic cranial nerves Overall: crainial nerves 2 - 12 grossly intact 04/10/2015 None Full Exam - General 1994 Psychiatric orientation/consciousness Overall: oriented to person, place and time 04/10/2015 None Full Exam - General 1994 Psychiatric mood and affect Overall: normal mood and affect 04/10/2015 None Full Exam - General 1994 Ears/Nose/Throat oral cavity/pharynx/larynx Oropharynx: erythema 04/10/2015 None Full Exam - General 1994 Respiratory auscultation Upper lung field: expiratory wheezes 04/10/2015 None Full Exam - General 1994 Respiratory auscultation Lower lung field: expiratory wheezes 04/10/2015 None Full Exam - General 1994 Respiratory auscultation Lower lung field: inspiratory wheezes 04/10/2015 None Full Exam - General 1994 Respiratory auscultation Lower lung field: diminished 04/10/2015 None Full Exam - General 1994 Respiratory respiratory effort/rhythm Overall: no retractions 04/10/2015 None Full Exam - General 1994 Respiratory respiratory effort/rhythm Rate: tachypnea 04/10/2015 None Full Exam - General 1994 Constitutional general appearance Development: well developed 12/21/2014 None Full Exam - General 1994 Constitutional general appearance Development: appears stated age 0712/21/2014 None Full Exam - General 1994 Constitutional general appearance Hygiene/Attention to Grooming: good hygiene 12/21/2014 None Full Exam - General 1994 Eyes conjunctiva /eyelids Overall: conjunctiva clear 12/21/2014 None Full Exam - General 1994 Eyes conjunctiva /eyelids Overall: cornea clear 12/21/2014 None Full Exam - General 1994 Eyes conjunctiva /eyelids Overall: eyelids normal 12/21/2014 None Full Exam - General 1994 Eyes pupils and irises Overall: pupils equal, round, reactive to light and accomodation 12/21/2014 None Full Exam - General 1994 Ears/Nose/Throat otoscopic exam Overall: external auditory canals clear 12/21/2014 None Full Exam - General 1994 Ears/Nose/Throat otoscopic exam Overall: tympanic membranes clear 12/21/2014 None Full Exam - General 1994 Ears/Nose/Throat lips/teeth/gingiva Overall: benign lips 12/21/2014 None Full Exam - General 1994 Ears/Nose/Throat lips/teeth/gingiva Overall: normal dentition 12/21/2014 None Full Exam - General 1994 Ears/Nose/Throat oral cavity/pharynx/larynx Overall: oral mucosa clear 12/21/2014 None Full Exam - General 1994 Ears/Nose/Throat oral cavity/pharynx/larynx Overall: oropharyngeal mucosa clear 12/21/2014 None Full Exam - General 1994 Ears/Nose/Throat oral cavity/pharynx/larynx Overall: hypopharynx benign 12/21/2014 None Full Exam - General 1994 Ears/Nose/Throat oral cavity/pharynx/larynx Overall: no masses 12/21/2014 None Full Exam - General 1994 Respiratory auscultation Overall: breath sounds clear bilaterally 12/21/2014 None Full Exam - General 1994 Respiratory respiratory effort/rhythm Overall: no retractions 12/21/2014 None Full Exam - General 1994 Respiratory respiratory effort/rhythm Overall: normal rate 12/21/2014 None Full Exam - General 1994 Cardiovascular extremities Overall: no clubbing 12/21/2014 None Full Exam - General 1994 Cardiovascular auscultation of heart Overall: regular rate 12/21/2014 None Full Exam - General 1994 Cardiovascular auscultation of heart Overall: normal heart sounds 12/21/2014 None Full Exam - General 1994 Abdomen abdominal exam Overall: no tenderness 12/21/2014 None Full Exam - General 1994 Abdomen abdominal exam Overall: normal bowel sounds 12/21/2014 None Full Exam - General 1994 Lymphatic neck nodes Overall: anterior cervical chain benign 12/21/2014 None Full Exam - General 1994 Lymphatic neck nodes Overall: posterior cervical chain benign 12/21/2014 None Full Exam - General 1994 Musculoskeletal spine, ribs and pelvis Overall: spine benign 12/21/2014 None Full Exam - General 1994 Musculoskeletal spine, ribs and pelvis Overall: sacroiliac joint benign 12/21/2014 None Full Exam - General 1994 Musculoskeletal spine, ribs and pelvis Overall: good posture 12/21/2014 None Full Exam - General 1994 Musculoskeletal head and neck Overall: head atraumatic 12/21/2014 None Full Exam - General 1994 Musculoskeletal head and neck Overall: cervical spine benign 12/21/2014 None Full Exam - General 1994 Integument inspection of skin Overall: few scattered moles, no gross abnormalities 12/21/2014 None Full Exam - General 1994 Neurologic deep tendon reflexes Overall: deep tendon reflexes intact 12/21/2014 None Full Exam - General 1994 Neurologic cranial nerves Overall: crainial nerves 2 - 12 grossly intact 12/21/2014 None Full Exam - General 1994 Psychiatric orientation/consciousness Overall: oriented to person, place and time 12/21/2014 None Full Exam - General 1994 Psychiatric mood and affect Overall: normal mood and affect 12/21/2014 None Procedures Procedure Codes Date THER/PROPH/DIAG INJ SC/IM CPT-4: 63021 08/13/2016 TRIAMCINOLONE ACET INJ NOS CPT-4: J3301 08/13/2016 ADMIN INFLUENZA VIRUS VAC CPT-4: G0008 02/28/2016 FLU VACC PRSV FREE INC ANTIG CPT-4: 78555 02/28/2016 TRIAMCINOLONE ACET INJ NOS CPT-4: J3301 01/28/2016 URINALYSIS NONAUTO W/O SCOPE CPT-4: 98758 11/06/2015 ROCEPHIN, PER 250 MG CPT-4: J0696 08/02/2015 TRIAMCINOLONE ACET INJ NOS CPT-4: J3301 08/02/2015 ADMIN INFLUENZA VIRUS VAC CPT-4: G0008 04/27/2015 FLU VACC PRSV FREE INC ANTIG Formatting Model/CDA Sections, Assigned to CPT-4: [id number] 04/27/2015 TRIAMCINOLONE ACET INJ NOS CPT-4: J3301 04/10/2015 Vital Signs Date Vital 12/25/2016 Blood Pressure 1: 130/66 Code : 8480-6 Heart Rate 1: 68 bpm Height: 5'4" SpO2: 92% Weight: 09/02/2016 Blood Pressure 1: 140/66 Code : 8480-6 Heart Rate 1: 62 bpm Height: 5'4" SpO2: 98% Weight: 08/13/2016 Blood Pressure 1: 124/64 Code : 8480-6 Heart Rate 1: 68 bpm Height: 5'4" SpO2: 98% Weight: 07/14/2016 Blood Pressure 1: 122/62 Code : 8480-6 Heart Rate 1: 60 bpm Height: 5'4" SpO2: 97% Weight: 06/18/2016 Blood Pressure 1: 132/68 Code : 8480-6 Heart Rate 1: 74 bpm Height: SpO2: 94% Temperature: 37.3 (C) / 99.1 (F) Weight: 05/07/2016 Blood Pressure 1: 118/74 Code : 8480-6 Heart Rate 1: 77 bpm Height: 5'4" SpO2: 98% Temperature: 36.9 (C) / 98.4 (F) Weight: 02/28/2016 Blood Pressure 1: 115/70 Code : 8480-6 Heart Rate 1: 74 bpm Height: 5'4" SpO2: 99% Weight: 01/28/2016 Blood Pressure 1: 128/76 Code : 8480-6 Heart Rate 1: 73 bpm Height: 5'4" SpO2: 94% Temperature: 37.3 (C) / 99.1 (F) Weight: 11/15/2015 Blood Pressure 1: 139/68 Code : 8480-6 Heart Rate 1: 70 bpm Height: 5'4" SpO2: 98% Weight: 08/02/2015 Blood Pressure 1: 140/72 Code : 8480-6 Heart Rate 1: 73 bpm Height: 5'4" SpO2: 94% Weight: 07/17/2015 Blood Pressure 1: 120/52 Code : 8480-6 Heart Rate 1: 75 bpm Height: 5'4" SpO2: 96% Weight: 04/19/2015 Blood Pressure 1: 112/64 Code : 8480-6 Heart Rate 1: 62 bpm Height: 5'4" SpO2: 98% Weight: 04/10/2015 Blood Pressure 1: 142/80 Code : 8480-6 Heart Rate 1: 67 bpm Height: 5'4" SpO2: 95% Temperature: 37.2 (C) / 98.9 (F) Weight: 12/21/2014 Blood Pressure 1: 138/74 Code : 8480-6 BMI: 37.0 Code : 64855-6 Heart Rate 1 : 60 bpm Height: 5'4" SpO2: 95% Weight: 217 lbs Functional Status No Functional Status data History of Present Illness Symptom Name Status Result Effective Date Notes nasal discharge Location in both nares 12/25/2016 None nasal discharge Quality clear 12/25/2016 None nasal discharge Onset and Resolution ongoing 12/25/2016 None nasal discharge Onset of Symptom months ago 12/25/2016 None nasal discharge Pertinent Findings cough 12/25/2016 -improved nasal discharge Pertinent Findings Denies dyspnea 12/25/2016 None cough Quality acute None cough Quality intermittent 09/02/2016 None cough Quality productive 09/02/2016 None cough Onset and Resolution ongoing 09/02/2016 None cough Onset of Symptom months ago 09/02/2016 None cough Pertinent Findings Denies chills 09/02/2016 None cough Pertinent Findings dyspnea 09/02/2016 None cough Pertinent Findings Denies fever 09/02/2016 None cough Pertinent Findings sputum production 09/02/2016 None nasal discharge Location in both nares 09/02/2016 None nasal discharge Onset and Resolution ongoing 09/02/2016 None nasal discharge Onset of Symptom months ago 09/02/2016 None nasal discharge Pertinent Findings cough 09/02/2016 -improved nasal discharge Pertinent Findings Denies dyspnea 09/02/2016 None nasal discharge Quality clear 09/02/2016 None hypertension Onset and Resolution ongoing 08/13/2016 None hypertension Onset of Symptom during adulthood 08/13/2016 None hypertension Blood Pressure Values patient checking blood pressure at home - did not bring in readings 08/13/2016 None hypertension Alleviating Factors medication 08/13/2016 None hypertension Pertinent Findings dizziness 08/13/2016 -takes meclizine as needed hypertension Pertinent Findings dyspnea 08/13/2016 None hypertension Pertinent Findings edema 08/13/2016 None diabetes mellitus Quality insulin dependent 08/13/2016 None diabetes mellitus Alleviating Factors medication 08/13/2016 None diabetes mellitus Alleviating Factors insulin 08/13/2016 None diabetes mellitus Exacerbating Factors diet 08/13/2016 None diabetes mellitus Pertinent Findings nausea 08/13/2016 occasionally cough Quality acute None cough Quality intermittent 08/13/2016 None cough Quality productive 08/13/2016 None cough Onset and Resolution ongoing 08/13/2016 None cough Pertinent Findings Denies chills 08/13/2016 None cough Pertinent Findings dyspnea 08/13/2016 None cough Pertinent Findings Denies fever 08/13/2016 None cough Pertinent Findings sputum production 08/13/2016 None diabetes mellitus Test results Pt checking blood glucose readings, did not bring results to clinic 08/13/2016 None diabetes mellitus Glucose monitoring daily 08/13/2016 (at least four to five times daily) cough Onset of Symptom months ago 08/13/2016 None nasal discharge Location in both nares 08/13/2016 None nasal discharge Onset and Resolution ongoing 08/13/2016 None nasal discharge Onset of Symptom months ago 08/13/2016 None nasal discharge Pertinent Findings dyspnea 08/13/2016 None nasal discharge Pertinent Findings cough 08/13/2016 None hypertension Quality stable 07/14/2016 None hypertension Onset and Resolution ongoing 07/14/2016 None hypertension Onset of Symptom during adulthood 07/14/2016 None hypertension Blood Pressure Values patient checking blood pressure at home - did not bring in readings 07/14/2016 None hypertension Alleviating Factors medication 07/14/2016 None hypertension Exacerbating Factors change in dietary habits 07/14/2016 None hypertension Pertinent Findings dizziness 07/14/2016 -takes meclizine as needed hypertension Pertinent Findings dyspnea 07/14/2016 None hypertension Pertinent Findings edema 07/14/2016 None diabetes mellitus Quality insulin dependent 07/14/2016 None diabetes mellitus Alleviating Factors insulin 07/14/2016 None diabetes mellitus Exacerbating Factors diet 07/14/2016 None diabetes mellitus Pertinent Findings nausea 07/14/2016 occasionally diabetes mellitus Test results Pt checking blood glucose readings, did not bring results to clinic 07/14/2016 None diabetes mellitus Glucose monitoring daily 07/14/2016 -four times daily at least diabetes mellitus Alleviating Factors medication 07/14/2016 None cough Quality acute None cough Quality intermittent 07/14/2016 None cough Quality productive 07/14/2016 None cough Onset and Resolution ongoing 07/14/2016 None cough Pertinent Findings Denies chills 07/14/2016 None cough Pertinent Findings Denies fever 07/14/2016 None cough Pertinent Findings sputum production 07/14/2016 None cough Pertinent Findings dyspnea 07/14/2016 None sinus congestion Location on both sides 06/18/2016 None sinus congestion Quality fullness 06/18/2016 None sinus congestion Quality pressure 06/18/2016 None sinus congestion Onset and Resolution sudden in onset 06/18/2016 None sinus congestion Onset of Symptom 2 months ago 06/18/2016 None sinus congestion Frequency of Episodes daily 06/18/2016 None sinus congestion Pertinent Findings cough 06/18/2016 None sinus congestion Pertinent Findings decreased energy level 06/18/2016 None sinus congestion Pertinent Findings fever 06/18/2016 None sinus congestion Pertinent Findings hoarseness 06/18/2016 None cough Location in the throat 05/07/2016 None cough Quality constant 05/07/2016 None cough Quality dry None cough Onset and Resolution sudden in onset 05/07/2016 None cough Onset of Symptom 5 days ago 05/07/2016 None cough Frequency of Episodes daily 05/07/2016 None cough Pertinent Findings chest discomfort 05/07/2016 None cough Pertinent Findings Denies fever 05/07/2016 None cough Pertinent Findings hoarseness 05/07/2016 None cough Pertinent Findings nasal congestion 05/07/2016 None sinus congestion Onset and Resolution sudden in onset 05/07/2016 None sinus congestion Onset of Symptom 4 days ago 05/07/2016 None sinus congestion Pertinent Findings cough 05/07/2016 None sinus congestion Pertinent Findings hoarseness 05/07/2016 None sinus congestion Location on both sides 05/07/2016 None sinus congestion Quality fullness 05/07/2016 None sinus congestion Quality pressure 05/07/2016 None hypertension Onset and Resolution ongoing 02/28/2016 None hypertension Onset of Symptom during adulthood 02/28/2016 None hypertension Alleviating Factors medication 02/28/2016 None hypertension Pertinent Findings Denies dizziness 02/28/2016 None hypertension Pertinent Findings Denies dyspnea 02/28/2016 None hypertension Pertinent Findings Denies edema 02/28/2016 None diabetes mellitus Quality insulin dependent 02/28/2016 None diabetes mellitus Alleviating Factors insulin 02/28/2016 None diabetes mellitus Exacerbating Factors diet 02/28/2016 None back pain Location lumbar spine 02/28/2016 None hypertension Blood Pressure Values patient checking blood pressure at home - did not bring in readings 02/28/2016 None hypertension Quality stable 02/28/2016 None hypertension Exacerbating Factors change in dietary habits 02/28/2016 None diabetes mellitus Test results Pt checking blood glucose readings, did not bring results to clinic 02/28/2016 None diabetes mellitus Glucose monitoring before meals 02/28/2016 None diabetes mellitus Glucose monitoring fasting 02/28/2016 None diabetes mellitus Blood glucose levels between 60 and 120 02/28/2016 None diabetes mellitus Pertinent Findings Denies nausea 02/28/2016 None myalgias Location on both feet 02/28/2016 None myalgias Location on both legs 02/28/2016 None myalgias Quality cramping 02/28/2016 None myalgias Quality intermittent 02/28/2016 None myalgias Location on the left hand 02/28/2016 None myalgias Onset and Resolution ongoing 02/28/2016 None myalgias Onset of Symptom 3+ months ago 02/28/2016 None myalgias Timing of Episodes at night 02/28/2016 None myalgias Significant Medical Conditions hypertension 02/28/2016 None back pain Quality chronic 02/28/2016 None back pain Location thoracic spine 02/28/2016 None back pain Onset and Resolution ongoing 02/28/2016 None back pain Onset and Resolution gradual in onset 02/28/2016 None back pain Alleviating Factors medication 02/28/2016 None back pain Quality improving 02/28/2016 since steroid injections abnormal bleeding and bruising Location on the right arm 02/28/2016 None abnormal bleeding and bruising Location on the left arm 02/28/2016 None sinus congestion Location on both sides 01/28/2016 None sinus congestion Quality fullness 01/28/2016 None sinus congestion Quality pressure 01/28/2016 None sinus congestion Onset and Resolution sudden in onset 01/28/2016 None sinus congestion Onset of Symptom 4 days ago 01/28/2016 None sinus congestion Frequency of Episodes daily 01/28/2016 None chest congestion Quality constant 01/28/2016 None chest congestion Quality thick secretions 01/28/2016 None chest congestion Onset and Resolution sudden in onset 01/28/2016 None chest congestion Onset of Symptom 4 hours ago 01/28/2016 None earache Location both ears 01/28/2016 None earache Onset and Resolution sudden in onset 01/28/2016 None earache Onset of Symptom 4 days ago 01/28/2016 None earache Frequency of Episodes daily 01/28/2016 None hypertension Onset and Resolution ongoing 11/15/2015 None hypertension Onset of Symptom during adulthood 11/15/2015 None hypertension Blood Pressure Values not checking blood pressure at home 11/15/2015 None hypertension Alleviating Factors medication 11/15/2015 None hypertension Pertinent Findings edema 11/15/2015 in her lower legs hypertension Pertinent Findings Denies dizziness 11/15/2015 None hypertension Pertinent Findings Denies dyspnea 11/15/2015 None diabetes mellitus Quality insulin dependent 11/15/2015 None diabetes mellitus Alleviating Factors insulin 11/15/2015 None diabetes mellitus Exacerbating Factors diet 11/15/2015 None diabetes mellitus Test results Pt checking blood glucose readings, did not bring results to clinic 11/15/2015 None back pain Location lumbar spine 11/15/2015 None cough Location in the throat 08/02/2015 None cough Quality dry None cough Quality hacking 08/02/2015 None cough Onset and Resolution sudden in onset 08/02/2015 None cough Onset of Symptom 2 weeks ago 08/02/2015 None cough Frequency of Episodes daily 08/02/2015 None sinus congestion Onset and Resolution sudden in onset 08/02/2015 None sinus congestion Onset of Symptom 2 weeks ago 08/02/2015 None sinus congestion Frequency of Episodes daily 08/02/2015 None sore throat Location on both sides 08/02/2015 None sore throat Quality dull 08/02/2015 None sore throat Quality scratchy 08/02/2015 None sore throat Onset and Resolution sudden in onset 08/02/2015 None sore throat Onset of Symptom 2 weeks ago 08/02/2015 None sore throat Frequency of Episodes daily 08/02/2015 None cough Location in the throat 07/17/2015 None cough Triggers post nasal drip 07/17/2015 None cough Triggers change of seasons 07/17/2015 None cough Alleviating Factors inhaled medications 07/17/2015 None cough Pertinent Findings fever 07/17/2015 99.8 cough Pertinent Findings Denies hemoptysis 07/17/2015 None cough Pertinent Findings hoarseness 07/17/2015 None cough Pertinent Findings sputum production 07/17/2015 thick yellow cough Onset and Resolution ongoing 07/17/2015 None cough Location in the throat 04/19/2015 None cough Onset of Symptom 1.5 weeks ago 04/19/2015 None cough Triggers post nasal drip 04/19/2015 None cough Triggers change of seasons 04/19/2015 None cough Alleviating Factors inhaled medications 04/19/2015 None cough Pertinent Findings fever 04/19/2015 99.8 cough Pertinent Findings Denies hemoptysis 04/19/2015 None cough Pertinent Findings hoarseness 04/19/2015 None cough Pertinent Findings sputum production 04/19/2015 thick yellow cough Location in the throat 04/10/2015 None cough Onset of Symptom 1.5 weeks ago 04/10/2015 None cough Triggers post nasal drip 04/10/2015 None cough Triggers change of seasons 04/10/2015 None cough Alleviating Factors inhaled medications 04/10/2015 None cough Pertinent Findings fever 04/10/2015 99.8 cough Pertinent Findings Denies hemoptysis 04/10/2015 None cough Pertinent Findings hoarseness 04/10/2015 None cough Pertinent Findings sputum production 04/10/2015 thick yellow hypertension Quality intermittent 12/21/2014 None diabetes mellitus Quality IDDM 12/21/2014 None hypertension Onset and Resolution ongoing 12/21/2014 None hypertension Blood Pressure Values patient checking blood pressure at home - did not bring in readings 12/21/2014 None diabetes mellitus Glucose monitoring before meals 12/21/2014 None diabetes mellitus Glucose monitoring bedtime 12/21/2014 None diabetes mellitus Blood glucose levels between 60 and 120 12/21/2014 106 this am diabetes mellitus Pertinent Findings Denies dizziness 12/21/2014 None diabetes mellitus Pertinent Findings Denies dyspnea 12/21/2014 None hypertension Onset of Symptom during adulthood 12/21/2014 None hypertension Alleviating Factors medication 12/21/2014 None hypertension Exacerbating Factors stress 12/21/2014 None Advance Directives No Advance Directive data Encounters Encounter Performer Location Codes Date ([id number]) [id number] EST. PATIENT, LEVEL IV Diagnosis: Essential (primary) hypertension[ICD10: I10] Diagnosis: Type 2 diabetes mellitus with hyperglycemia[ICD10: E11.65] Diagnosis: Other allergic rhinitis[ICD10: J30.89] [facility] CPT-4: 71388 12/25/2016 ([id number]) 68677 EST. PATIENT, LEVEL IV Diagnosis: Type 2 diabetes mellitus with hyperglycemia[ICD10: E11.65] Diagnosis: Essential (primary) hypertension[ICD10: I10] Diagnosis: Mixed hyperlipidemia[ICD10: E78.2] Shanthi Clay MD [facility] CPT-4: 58417 09/02/2016 ([id number]) 24996 EST. PATIENT, LEVEL IV Diagnosis: Essential (primary) hypertension[ICD10: I10] Shanthi Clay MD [facility] CPT-4: 77356 08/13/2016 ([id number]) 33120 EST. PATIENT, LEVEL IV Diagnosis: Essential (primary) hypertension[ICD10: I10] Diagnosis: Cough[ICD10: R05] Diagnosis: Type 2 diabetes mellitus with hyperglycemia[ICD10: E11.65] Shanthi Clay MD , [facility] CPT-4: 86496 07/14/2016 ([id number]) Miscellaneous no charge Diagnosis: Cough[ICD10: R05] Katelynn Clay MD, [facility] CPT-4: 62808 06/25/2016 42505 EST. PATIENT, LEVEL III Diagnosis: Acute laryngopharyngitis[ICD10: J06.0] Diagnosis: Other allergic rhinitis[ICD10: J30.89] Diagnosis: Cough[ICD10: R05] Katelynn Clay MD, [facility] CPT-4: 11917 06/18/2016 88105 EST. PATIENT, LEVEL III Diagnosis: Other allergic rhinitis[ICD10: J30.89] Diagnosis: Acute nasopharyngitis [common cold][ICD10: J00] Katelynn Clay MD, [facility] CPT-4: 79781 05/07/2016 ([id number]) 67664 EST. PATIENT, LEVEL IV Diagnosis: Spontaneous ecchymoses[ICD10: R23.3] Diagnosis: Type 2 diabetes mellitus with hyperglycemia[ICD10: E11.65] Diagnosis: Essential (primary) hypertension[ICD10: I10] Diagnosis: Encounter for immunization[ICD10: Z23] Shanthi Clay MD, [facility] CPT-4: 67909 02/28/2016 62899 EST. PATIENT, LEVEL V Diagnosis: Acute recurrent maxillary sinusitis[ICD10: J01.01] Diagnosis: Other allergic rhinitis[ICD10: J30.89] Diagnosis: Cough[ICD10: R05] Katelynn Clay MD, [facility] CPT-4: 00223 01/28/2016 ([id number]) 42267 EST. PATIENT, LEVEL IV Diagnosis: Essential (primary) hypertension[ICD10: I10] Diagnosis: Type 2 diabetes mellitus with hyperglycemia[ICD10: E11.65] Diagnosis: Mixed hyperlipidemia[ICD10: E78.2] Shanthi Clay MD, [facility] CPT-4: 88354 11/15/2015 63085 EST. PATIENT, LEVEL IV Diagnosis: Acute recurrent maxillary sinusitis[ICD10: J01.01] Diagnosis: Cough[ICD10: R05] Diagnosis: Type 2 diabetes mellitus with hyperglycemia[ICD10: E11.65] Diagnosis: Essential (primary) hypertension[ICD10: I10] Katelynn Clay MD, [facility] CPT-4: 20746 08/02/2015 ([id number]) 30740 EST. PATIENT, LEVEL IV Diagnosis: Essential (primary) hypertension[ICD10: I10] Diagnosis: Type 2 diabetes mellitus with hyperglycemia[ICD10: E11.65] Diagnosis: Acute maxillary sinusitis, unspecified[ICD10: J01.00] Shanthi Clay MD, [facility] CPT-4: 80867 07/17/2015 ([id number]) 06926 EST. PATIENT, LEVEL IV Diagnosis: Acute bronchitis, unspecified[ICD10: J20.9] Diagnosis: Cough[ICD10: R05] Diagnosis: Type 2 diabetes mellitus with hyperglycemia[ICD10: E11.65] Diagnosis: Essential (primary) hypertension[ICD10: I10] Shanthi Clay MD, [facility] CPT-4: 93344 04/19/2015 78854 EST. PATIENT, LEVEL III Diagnosis: Acute bronchitis, unspecified[ICD10: J20.9] Diagnosis: Type 2 diabetes mellitus with hyperglycemia[ICD10: E11.65] Diagnosis: Essential (primary) hypertension[ICD10: I10] [facility] CPT-4: 42997 04/10/2015 ([id number]) OFFICE VISIT, NEW - LEVEL 4 Diagnosis: DIABETES TYPE II[ICD9: 250.00] Diagnosis: ESSENTIAL HYPERTENSION[ICD9: 401.9] Diagnosis: Peripheral neuropathy[ICD9: 356.9] [facility] CPT-4: 64279 12/21/2014 Plan of Care Planned Activity Notes Codes Status Date Appointment: Shanthi Clay WPtel: [phone] [facility] [address] (30 min) Complex 04/30/2017 Appointment: Katelynn Juan WPtel: [phone] [facility] (30 min) Complex 02/04/2017 Visit Plan: Hypertension - well controlled - continue with current medications, continue with no added salt diet. Pt has been encouraged to exercise daily. The pt has been advised to call the office if there are any acute concerns about change in blood pressure readings at home. Diabetes Mellitus - controlled - per recent FSBS reports. I have recommended for the patient to have follow up labs prior to the next office visit. The patient has been instructed to continue with current medications as previously directed, continue with regular FSBS monitoring to assure continued control of diabetes. Pt to call for any acute concerns, complaints, or if the blood glucose readings are starting to become less controlled. Nasal allergies - continue with nasal spray - Allergies of eyes - recommended zatador or alaway. Chest pain - discussed with ESTEBAN today - Dr. De La Paz's office is to have the hospital "cloud" the images today. 12/25/2016 Visit Plan: Hypertension - well controlled - continue with current medications, continue with no added salt diet. Pt has been encouraged to exercise daily. The pt has been advised to call the office if there are any acute concerns about change in blood pressure readings at home. Diabetes Mellitus - improved - per recent FSBS reports. I have recommended for the patient to have follow up labs prior to the next office visit. The patient has been instructed to continue with current medications as previously directed, continue with regular FSBS monitoring to assure continued control of diabetes. Pt to call for any acute concerns, complaints, or if the blood glucose readings are starting to become less controlled. Pt to continue to check fsbs ac and hs until we have a little bit better control. Nasal allergies - continue with nasal spray - Allergies of eyes - recommended zatador or alaway. Chest pain - discussed with ESTEBAN today - Dr. De La Paz's office is to have the hospital "cloud" the images today. 12/25/2016 Appointment: Shanthi Clay WPtel: [phone] [facility] [address] [place] (15 min) Moderate 12/25/2016 Patient Education: Patient Medication Summary Completed 12/25/2016 [phone] ([facility] Moderate 12/02/2016 Visit Plan: Diabetes Mellitus - controlled - per recent FSBS reports. I have recommended for the patient to have follow up labs prior to the next office visit. The patient has been instructed to continue with current medications as previously directed, continue with regular FSBS monitoring to assure continued control of diabetes. Pt to call for any acute concerns, complaints, or if the blood glucose readings are starting to become less controlled. Hypertension - well controlled - continue with current medications, continue with no added salt diet. Pt has been encouraged to exercise daily. The pt has been advised to call the office if there are any acute concerns about change in blood pressure readings at home. Hyperlipidemia - pt has been counseled about appropriate diet, exercise, and need for low fat food choices. I have discussed the need for the patient to take medications as prescribed. If the patient has negative side effects from the medication, they are to CALL the office and not abruptly discontinue the medication without discussion with a practitioner in the office. We will check labs in 3-6 months for follow up on the patient's chronic medical problem and to assure normal liver response to medications. 09/02/2016 Appointment: [facility]ant[id number] (15 min) Moderate 09/02/2016 Patient Education: Patient Medication Summary Completed 09/02/2016 Visit Plan: Hypertension - well controlled - continue with current medications, continue with no added salt diet. Pt has been encouraged to exercise daily. The pt has been advised to call the office if there are any acute concerns about change in blood pressure readings at home. COPD EXACERBATION - COPD is a chronic problem for this patient, however, the pt is experiencing an acute exacerbation of the COPD. Pt is to receive appropriate treatment as an out patient, but the pt is aware that if symptoms worsen or do not improve, to call [facility] for instructions, or go to the EMERGENCY ROOM if the symptoms are beyond acute control with rescue medications. We have reviewed chronic treatment strategy, symptom control, and plans for acute exacerbations. No changes today to the current treatment plan as the patient is stable, monitor for acute changes. Check overnight oxygen level 08/13/2016 Appointment: Shanthi Clay WPtel: [facility]5 [facility] [address] (15 min) Moderate 08/13/2016 Patient Education: Patient Medication Summary Completed 08/13/2016 Visit Plan: Hypertension - well controlled - continue with current medications, continue with no added salt diet. Pt has been encouraged to exercise daily. The pt has been advised to call the office if there are any acute concerns about change in blood pressure readings at home. Cough - stop enalapril - this may be exacerbating the cough - start on losartan 25mg daily - this is to be started on Thursday of this week Diabetes Mellitus - controlled - per recent FSBS reports. I have recommended for the patient to have follow up labs prior to the next office visit. The patient has been instructed to continue with current medications as previously directed, continue with regular FSBS monitoring to assure continued control of diabetes. Pt to call for any acute concerns, complaints, or if the blood glucose readings are starting to become less controlled. 07/14/2016 Patient Education: Patient Medication Summary Completed 07/14/2016 Appointment: Shanthi Clay WPtel: [facility]5 [facility] [address] (15 min) Moderate 06/26/2016 Appointment: Nurse Visit 06/25/2016 Patient Education: Patient Medication Summary Completed 06/25/2016 Appointment: Katelynn Juan WPtel: [address] [place], [place] [id number] (30 min) Complex 06/24/2016 Visit Plan: URI - Pt advised to increase fluids, vitamin C. Discussed natural and expected course of this diagnosis and need to alert me if symptoms do not follow expected course, or if any worse. RX sent to patient' s pharmacy. Allergies - chronic - recommended pt to use allergy medication as prescribed. Pt has been counseled as to the appropriate use of the medication. Pt to call if allergy symptoms are not controlled with the medication. If using nasal spray, instructions as follows: Nasal spray- use twice daily, one spray per nostril twice daily, after 30 minutes, rinse out nose with saline spray.. Use opposite hand per nostril to spray in the nasal steroid allergy spray. 06/18/2016 Appointment: Katelynn Juan WPtel: [facility]5 [facility]66[facility] (30 min) Complex 06/18/2016 Patient Education: Patient Medication Summary Completed 06/18/2016 Visit Plan: URI - Pt advised to increase fluids, vitamin C. Discussed natural and expected course of this diagnosis and need to alert me if symptoms do not follow expected course, or if any worse. RX sent to patient' s pharmacy. Allergies - chronic - recommended pt to use allergy medication as prescribed. Pt has been counseled as to the appropriate use of the medication. Pt to call if allergy symptoms are not controlled with the medication. If using nasal spray, instructions as follows: Nasal spray- use twice daily, one spray per nostril twice daily, after 30 minutes, rinse out nose with saline spray.. Use opposite hand per nostril to spray in the nasal steroid allergy spray. 05/07/2016 Appointment: Yoly Cuevas WPtel: [facility]9 [id number] [place] [address] (15 min) Moderate 05/07/2016 Patient Education: Patient Medication Summary Completed 05/07/2016 Visit Plan: Hypertension - well controlled - continue with current medications, continue with no added salt diet. Pt has been encouraged to exercise daily. The pt has been advised to call the office if there are any acute concerns about change in blood pressure readings at home. Diabetes Mellitus - controlled - per recent FSBS reports. I have recommended for the patient to have follow up labs prior to the next office visit. The patient has been instructed to continue with current medications as previously directed, continue with regular FSBS monitoring to assure continued control of diabetes. Pt to call for any acute concerns, complaints, or if the blood glucose readings are starting to become less controlled. Bruising - check cbc, platelets 02/28/2016 Appointment: Shanthi Clay WPtel: [address] [facility] [address] (15 min) Moderate 02/28/2016 Patient Education: Patient Medication Summary Completed 02/28/2016 Visit Plan: Allergies - chronic - recommended pt to use allergy medication as prescribed. Pt has been counseled as to the appropriate use of the medication. Pt to call if allergy symptoms are not controlled with the medication. If using nasal spray, instructions as follows: Nasal spray- use twice daily, one spray per nostril twice daily, after 30 minutes, rinse out nose with saline spray.. Use opposite hand per nostril to spray in the nasal steroid allergy spray. Sinusitis - Pt has acute infection - pain in face, maxillary region, Pt informed to use decongestant, RX given to patient, sinus rinses also recommended. Call if symptoms do not show improvement. 01/28/2016 Appointment: Kately[facility] Juan [facility]el[id number] (10 min) Simple 01/28/2016 Patient Education: Patient Medication Summary Completed 01/28/2016 Patient Education: Patient Medication Summary Completed 12/13/2015 Visit Plan: Hypertension - well controlled - continue with current medications, continue with no added salt diet. Pt has been encouraged to exercise daily. The pt has been advised to call the office if there are any acute concerns about change in blood pressure readings at home. Diabetes Mellitus - controlled - per recent FSBS reports. I have recommended for the patient to have follow up labs prior to the next office visit. The patient has been instructed to continue with current medications as previously directed, continue with regular FSBS monitoring to assure continued control of diabetes. Pt to call for any acute concerns, complaints, or if the blood glucose readings are starting to become less controlled. Hyperlipidemia - pt has been counseled about appropriate diet, exercise, and need for low fat food choices. I have discussed the need for the patient to take medications as prescribed. If the patient has negative side effects from the medication, they are to CALL the office and not abruptly discontinue the medication without discussion with a practitioner in the office. We will check labs in 3-6 months for follow up on the patient's chronic medical problem and to assure normal liver response to medications. 11/15/2015 Patient Education: Patient Medication Summary Completed 11/15/2015 Appointment: Lab Draw 11/06/2015 Patient Education: Patient Medication Summary Completed 11/06/2015 Care Plan: Urine Culture Pending 11/06/2015 Appointment: [facility]ant[facility] Clay [facility]el[facility] (15 min) Moderate 10/18/2015 Visit Plan: Allergies - chronic - recommended pt to use allergy medication as prescribed. Pt has been counseled as to the appropriate use of the medication. Pt to call if allergy symptoms are not controlled with the medication. If using nasal spray, instructions as follows: Nasal spray- use twice daily, one spray per nostril twice daily, after 30 minutes, rinse out nose with saline spray.. Use opposite hand per nostril to spray in the nasal steroid allergy spray. Sinusitis - Pt has acute infection - pain in face, maxillary region, Pt informed to use decongestant, RX given to patient, sinus rinses also recommended. Call if symptoms do not show improvement. Hypertension - continue with current medications, continue with no added salt diet. Pt has been encouraged to exercise daily. The pt has been advised to call the office if there are any acute concerns about change in blood pressure readings at home. Diabetes Mellitus - The patient has been instructed to continue with current medications as previously directed, continue with regular FSBS monitoring to assure continued control of diabetes. Pt to call for any acute concerns, complaints, or if the blood glucose readings are starting to become less controlled. 08/02/2015 Patient Education: Patient Medication Summary Completed 08/02/2015 Patient Education: Hypertension Completed 08/02/2015 Visit Plan: Hypertension - well controlled - continue with current medications, continue with no added salt diet. Pt has been encouraged to exercise daily. The pt has been advised to call the office if there are any acute concerns about change in blood pressure readings at home. Diabetes Mellitus - controlled - per recent FSBS reports. I have recommended for the patient to have follow up labs prior to the next office visit. The patient has been instructed to continue with current medications as previously directed, continue with regular FSBS monitoring to assure continued control of diabetes. Pt to call for any acute concerns, complaints, or if the blood glucose readings are starting to become less controlled. URI - Pt advised to increase fluids, vitamin C. Discussed natural and expected course of this diagnosis and need to alert me if symptoms do not follow expected course, or if any worse. RX sent to patient's pharmacy. 07/17/2015 Appointment: Shanthi Clay WPtel: [address] [place], [place] [id number] (15 min) Moderate 07/17/2015 Patient Education: Patient Medication Summary Completed 07/17/2015 Patient Education: Hypertension Completed 07/17/2015 Appointment: Shanthi Clay WPtel: [facility]5 [facility] [address]66[facility] (15 min) Moderate 07/16/2015 Appointment: Shanthi Clay WPtel: [facility]5 [facility] [address]66[facility] (15 min) Moderate 06/13/2015 Appointment: Injection 04/27/2015 Patient Education: Patient Medication Summary Completed 04/27/2015 Visit Plan: Hypertension - well controlled - continue with current medications, continue with no added salt diet. Pt has been encouraged to exercise daily. The pt has been advised to call the office if there are any acute concerns about change in blood pressure readings at home. Diabetes Mellitus - controlled - per recent FSBS reports. I have recommended for the patient to have follow up labs prior to the next office visit. The patient has been instructed to continue with current medications as previously directed, continue with regular FSBS monitoring to assure continued control of diabetes. Pt to call for any acute concerns, complaints, or if the blood glucose readings are starting to become less controlled. Bronchitis - acute case of bronchitis identified. Pt has been given breathing treatments as appropriate, and pt has been instructed to call if symptoms are not improved, or if symptoms acutely worsen. 04/19/2015 Appointment: Shanthi Clay WPtel: [address] [place], [place] [id number] (15 min) Moderate 04/19/2015 Patient Education: Patient Medication Summary Completed 04/19/2015 Patient Education: Hypertension Completed 04/19/2015 Visit Plan: Bronchitis - acute case of bronchitis identified. Pt has been given antibiotics, breathing treatments as appropriate, and pt has been instructed to call if symptoms are not improved, or if symptoms acutely worsen. Prednisone 60 mg PO daily for 5 days. Will change to Levaquin. come back in 10 days or sooner if symptoms do not improve or worsen. Will give samples of lyrica and Humalog Will send Phenergan with codeine cough syrup. 04/10/2015 Appointment: (30 min) Complex 04/10/2015 Patient Education: Patient Medication Summary Completed 04/10/2015 Patient Education: Hypertension Completed 04/10/2015 Appointment: Shanthi Clay WPtel: [address] [facility] [address] (15 min) Moderate 03/15/2015 Visit Plan: Hypertension - well controlled - continue with current medications, continue with no added salt diet. Pt has been encouraged to exercise daily. The pt has been advised to call the office if there are any acute concerns about change in blood pressure readings at home. Diabetes Mellitus - controlled - per recent FSBS reports. I have recommended for the patient to have follow up labs prior to the next office visit. The patient has been instructed to continue with current medications as previously directed, continue with regular FSBS monitoring to assure continued control of diabetes. Pt to call for any acute concerns, complaints, or if the blood glucose readings are starting to become less controlled. Peripheral Neuropathy - continue with use of lyrica - monitor symptoms - call if not improved. 12/21/2014 Appointment: Shanthi Clay WPtel: [address] [facility] [address] [place] ([place]) New Patient 12/21/2014 Patient Education: Patient Medication Summary Completed 12/21/2014 Patient Education: Hypertension Completed 12/21/2014 Instructions Comment . Hypertension - well controlled - continue with current medications, continue with no added salt diet. Pt has been encouraged to exercise daily. The pt has been advised to call the office if there are any acute concerns about change in blood pressure readings at home. Diabetes Mellitus - controlled - per recent FSBS reports. I have recommended for the patient to have follow up labs prior to the next office visit. The patient has been instructed to continue with current medications as previously directed, continue with regular FSBS monitoring to assure continued control of diabetes. Pt to call for any acute concerns, complaints, or if the blood glucose readings are starting to become less controlled. Peripheral Neuropathy - continue with use of lyrica - monitor symptoms - call if not improved. Zaditor over the counter eye drops. Phenergan with codiene cough syrup Meclizine - pill for dizziness/allergies. . URI - Pt advised to increase fluids, vitamin C. Discussed natural and expected course of this diagnosis and need to alert me if symptoms do not follow expected course, or if any worse. RX sent to patient's pharmacy. Allergies - chronic - recommended pt to use allergy medication as prescribed. Pt has been counseled as to the appropriate use of the medication. Pt to call if allergy symptoms are not controlled with the medication. If using nasal spray, instructions as follows: Nasal spray- use twice daily, one spray per nostril twice daily, after 30 minutes, rinse out nose with saline spray.. Use opposite hand per nostril to spray in the nasal steroid allergy spray. . Hypertension - well controlled - continue with current medications, continue with no added salt diet. Pt has been encouraged to exercise daily. The pt has been advised to call the office if there are any acute concerns about change in blood pressure readings at home. Diabetes Mellitus - controlled - per recent FSBS reports. I have recommended for the patient to have follow up labs prior to the next office visit. The patient has been instructed to continue with current medications as previously directed, continue with regular FSBS monitoring to assure continued control of diabetes. Pt to call for any acute concerns, complaints, or if the blood glucose readings are starting to become less controlled. Bruising - check cbc, platelets . Hypertension - well controlled - continue with current medications, continue with no added salt diet. Pt has been encouraged to exercise daily. The pt has been advised to call the office if there are any acute concerns about change in blood pressure readings at home. Diabetes Mellitus - controlled - per recent FSBS reports. I have recommended for the patient to have follow up labs prior to the next office visit. The patient has been instructed to continue with current medications as previously directed, continue with regular FSBS monitoring to assure continued control of diabetes. Pt to call for any acute concerns, complaints, or if the blood glucose readings are starting to become less controlled. Hyperlipidemia - pt has been counseled about appropriate diet, exercise, and need for low fat food choices. I have discussed the need for the patient to take medications as prescribed. If the patient has negative side effects from the medication, they are to CALL the office and not abruptly discontinue the medication without discussion with a practitioner in the office. We will check labs in 3-6 months for follow up on the patient's chronic medical problem and to assure normal liver response to medications. ZATADOR ALAWAY both are allergy eye drops - they will make your eyes sting initially when you use them but should improve over the next 1 week . Hypertension - well controlled - continue with current medications, continue with no added salt diet. Pt has been encouraged to exercise daily. The pt has been advised to call the office if there are any acute concerns about change in blood pressure readings at home. Diabetes Mellitus - controlled - per recent FSBS reports. I have recommended for the patient to have follow up labs prior to the next office visit. The patient has been instructed to continue with current medications as previously directed, continue with regular FSBS monitoring to assure continued control of diabetes. Pt to call for any acute concerns, complaints, or if the blood glucose readings are starting to become less controlled. Nasal allergies - continue with nasal spray - Allergies of eyes - recommended zatador or alaway. Chest pain - discussed with ESTEBAN today - Dr. De La Paz's office is to have the hospital "cloud" the images today. ZATADOR ALAWAY both are allergy eye drops - they will make your eyes sting initially when you use them but should improve over the next 1 week . Hypertension - well controlled - continue with current medications, continue with no added salt diet. Pt has been encouraged to exercise daily. The pt has been advised to call the office if there are any acute concerns about change in blood pressure readings at home. Diabetes Mellitus - improved - per recent FSBS reports. I have recommended for the patient to have follow up labs prior to the next office visit. The patient has been instructed to continue with current medications as previously directed , continue with regular FSBS monitoring to assure continued control of diabetes. Pt to call for any acute concerns, complaints, or if the blood glucose readings are starting to become less controlled. Pt to continue to check fsbs ac and hs until we have a little bit better control. Nasal allergies - continue with nasal spray - Allergies of eyes - recommended zatador or alaway. Chest pain - discussed with ESTEBAN today - Dr. De La Paz's office is to have the hospital "cloud" the images today. If using nasal spray, instructions as follows: Nasal spray - use twice daily, one spray per nostril twice daily, after 30 minutes, rinse out nose with saline spray.. Use opposite hand per nostril to spray in the nasal steroid allergy spray. . Allergies - chronic - recommended pt to use allergy medication as prescribed. Pt has been counseled as to the appropriate use of the medication. Pt to call if allergy symptoms are not controlled with the medication. If using nasal spray, instructions as follows: Nasal spray- use twice daily, one spray per nostril twice daily, after 30 minutes, rinse out nose with saline spray.. Use opposite hand per nostril to spray in the nasal steroid allergy spray. Sinusitis - Pt has acute infection - pain in face, maxillary region, Pt informed to use decongestant, RX given to patient, sinus rinses also recommended. Call if symptoms do not show improvement. Hypertension - continue with current medications, continue with no added salt diet. Pt has been encouraged to exercise daily. The pt has been advised to call the office if there are any acute concerns about change in blood pressure readings at home. Diabetes Mellitus - The patient has been instructed to continue with current medications as previously directed, continue with regular FSBS monitoring to assure continued control of diabetes. Pt to call for any acute concerns, complaints, or if the blood glucose readings are starting to become less controlled. . Diabetes Mellitus - controlled - per recent FSBS reports. I have recommended for the patient to have follow up labs prior to the next office visit. The patient has been instructed to continue with current medications as previously directed, continue with regular FSBS monitoring to assure continued control of diabetes. Pt to call for any acute concerns, complaints, or if the blood glucose readings are starting to become less controlled. Hypertension - well controlled - continue with current medications, continue with no added salt diet. Pt has been encouraged to exercise daily. The pt has been advised to call the office if there are any acute concerns about change in blood pressure readings at home. Hyperlipidemia - pt has been counseled about appropriate diet, exercise, and need for low fat food choices. I have discussed the need for the patient to take medications as prescribed. If the patient has negative side effects from the medication, they are to CALL the office and not abruptly discontinue the medication without discussion with a practitioner in the office. We will check labs in 3-6 months for follow up on the patient's chronic medical problem and to assure normal liver response to medications. Keep appointment with Dr. Clay on 04/19 Will stop cefdinir, will start on levaquin. Steroid shot given, will start on prednisone for 5 days, will send for cough syrup. . Bronchitis - acute case of bronchitis identified. Pt has been given antibiotics, breathing treatments as appropriate, and pt has been instructed to call if symptoms are not improved, or if symptoms acutely worsen. Prednisone 60 mg PO daily for 5 days. Will change to Levaquin. come back in 10 days or sooner if symptoms do not improve or worsen. Will give samples of lyrica and Humalog Will send Phenergan with codeine cough syrup. . Hypertension - well controlled - continue with current medications, continue with no added salt diet. Pt has been encouraged to exercise daily. The pt has been advised to call the office if there are any acute concerns about change in blood pressure readings at home. Diabetes Mellitus - controlled - per recent FSBS reports. I have recommended for the patient to have follow up labs prior to the next office visit. The patient has been instructed to continue with current medications as previously directed, continue with regular FSBS monitoring to assure continued control of diabetes. Pt to call for any acute concerns, complaints, or if the blood glucose readings are starting to become less controlled. Bronchitis - acute case of bronchitis identified. Pt has been given breathing treatments as appropriate, and pt has been instructed to call if symptoms are not improved, or if symptoms acutely worsen. . URI - Pt advised to increase fluids, vitamin C. Discussed natural and expected course of this diagnosis and need to alert me if symptoms do not follow expected course, or if any worse. RX sent to patient's pharmacy. Allergies - chronic - recommended pt to use allergy medication as prescribed. Pt has been counseled as to the appropriate use of the medication. Pt to call if allergy symptoms are not controlled with the medication. If using nasal spray, instructions as follows: Nasal spray- use twice daily, one spray per nostril twice daily, after 30 minutes, rinse out nose with saline spray.. Use opposite hand per nostril to spray in the nasal steroid allergy spray. pb2 peanut butter powder use the inhaler - two puffs twice daily. . Hypertension - well controlled - continue with current medications, continue with no added salt diet. Pt has been encouraged to exercise daily. The pt has been advised to call the office if there are any acute concerns about change in blood pressure readings at home. COPD EXACERBATION - COPD is a chronic problem for this patient, however, the pt is experiencing an acute exacerbation of the COPD. Pt is to receive appropriate treatment as an out patient, but the pt is aware that if symptoms worsen or do not improve, to call [facility] for instructions, or go to the EMERGENCY ROOM if the symptoms are beyond acute control with rescue medications. We have reviewed chronic treatment strategy, symptom control, and plans for acute exacerbations. No changes today to the current treatment plan as the patient is stable, monitor for acute changes. Check overnight oxygen level If using nasal spray, instructions as follows: Nasal spray - use twice daily, one spray per nostril twice daily, after 30 minutes, rinse out nose with saline spray.. Use opposite hand per nostril to spray in the nasal steroid allergy spray. . Allergies - chronic - recommended pt to use allergy medication as prescribed. Pt has been counseled as to the appropriate use of the medication. Pt to call if allergy symptoms are not controlled with the medication. If using nasal spray, instructions as follows: Nasal spray- use twice daily, one spray per nostril twice daily, after 30 minutes, rinse out nose with saline spray.. Use opposite hand per nostril to spray in the nasal steroid allergy spray. Sinusitis - Pt has acute infection - pain in face, maxillary region, Pt informed to use decongestant, RX given to patient, sinus rinses also recommended. Call if symptoms do not show improvement. stop enalapril - this may be exacerbating the cough - start on losartan 25mg daily - this is to be started on Thursday of this week . Hypertension - well controlled - continue with current medications, continue with no added salt diet. Pt has been encouraged to exercise daily. The pt has been advised to call the office if there are any acute concerns about change in blood pressure readings at home. Cough - stop enalapril - this may be exacerbating the cough - start on losartan 25mg daily - this is to be started on Thursday of this week Diabetes Mellitus - controlled - per recent FSBS reports. I have recommended for the patient to have follow up labs prior to the next office visit. The patient has been instructed to continue with current medications as previously directed, continue with regular FSBS monitoring to assure continued control of diabetes. Pt to call for any acute concerns, complaints, or if the blood glucose readings are starting to become less controlled. start on a probiotic (Finderly or Amerpages) three times daily while taking the antibiotics. next week come in for fasting labs and a diabetes check. . Hypertension - well controlled - continue with current medications, continue with no added salt diet. Pt has been encouraged to exercise daily. The pt has been advised to call the office if there are any acute concerns about change in blood pressure readings at home. Diabetes Mellitus - controlled - per recent FSBS reports. I have recommended for the patient to have follow up labs prior to the next office visit. The patient has been instructed to continue with current medications as previously directed, continue with regular FSBS monitoring to assure continued control of diabetes. Pt to call for any acute concerns, complaints, or if the blood glucose readings are starting to become less controlled. URI - Pt advised to increase fluids, vitamin C. Discussed natural and expected course of this diagnosis and need to alert me if symptoms do not follow expected course, or if any worse. RX sent to patient's pharmacy.
--- OUTSIDE RECORDS SUMMARY | 2017-08-07 08:28 | XMS REPORT | CCD ---
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 Name Role Phone PP Unavailable CCM Unavailable Summary Purpose Interface Exchange Insurance Providers Payer name Policy type / Coverage type Covered constitution party ID Effective Begin Date Effective End Date WPS Medicare Part B Medicare Part B [id number] Unknown Unknown AARP Medicare Part B [id number] Unknown Unknown Family history Mother Diagnosis Age At Onset No Family Disease Entered N/A Social History Social History Element Codes Description Effective Dates Marital status Unknown Tonie 12/21/2014 Number of children Unknown 1 12/21/2014 Employment Unknown Retired 12/21/[address]: 9327542 Quit over 10 years ago 1988 12/21/2014 [...] Start Date Stop Date Status Fill Instructions hydrocodone 10 mg-acetaminophen 325 mg tablet RxNorm: 212801 1 Tablet(s) PO Q6 as needed 07/10/2017 08/08/2017 Active hydrochlorothiazide 25 mg tablet RxNorm: 678894 Tablet(s) TAKE 1 TABLET BY MOUTH DAILY 06/11/2017 12/07/2017 Active syringe (disposable) RxNorm: Miscellaneous 06/02/2017 11/23/2018 Active 0.5ml/30g/ 12.7mm BD albuterol sulfate 2.5 mg/3 mL (0.083 %) solution for nebulization RxNorm: 651507 3 Milliliter(s) INH QID as needed 05/22/2017 No Stop Date Active Keflex 500 mg capsule RxNorm: 503548 1 Capsule(s) PO TID 201605/18/2017 Inactive Keflex 500 mg capsule RxNorm: 194539 1 Capsule(s) PO TID 201605/11/2017 Inactive Phenergan with Codeine Syrup RxNorm: 5 to 10 ml PO QID as needed cough 05/12/2017 05/18/2017 Inactive hydrocodone 10 mg-acetaminophen 325 mg tablet RxNorm: 893093 1 Tablet(s) PO Q6 as needed 05/05/2017 06/03/2017 Inactive amlodipine 5 mg tablet RxNorm: 651272 TAKE ONE TABLET BY MOUTH DAILY AT BEDTIME 04/03/2017 09/29/2017 Active Generic For:NORVASC 5 MG TABLET 04/03/2017 9:17:21 AM meclizine 12.5 mg tablet RxNorm: 001258 1 Tablet(s) PO TID as needed 03/10/2017 03/19/2017 Inactive meclizine 12.5 mg tablet RxNorm: 719035 1 Tablet(s) PO TID as needed 03/10/2017 03/09/2017 Inactive atenolol 50 mg tablet RxNorm: 427872 1 Tablet(s) PO daily 201607/03/2017 Inactive Novolog 100 unit/mL subcutaneous solution RxNorm: 755754 INJECT 17 UNITS SUBCUTANEOUSLY THREE TIMES DAILY BEFORE MEALS -MAY USE EXTRA 10 UNITS THREE TIMES DAILY IF NEEDED 03/05/20172017 Active 03/05/2017 4:06:58 PM hydrocodone 10 mg-acetaminophen 325 mg tablet RxNorm: 808134 1 Tablet(s) PO Q6 as needed 03/05/2017 05/04/2017 Inactive losartan 25 mg tablet RxNorm: 273737 1 Tablet(s) PO daily 201609/23/2017 Active prednisone 20 mg tablet RxNorm: 168337 3 Tablet(s) PO daily 03/02/2017 Inactive Augmentin 500 mg-125 mg tablet RxNorm: 985188 1 Tablet(s) PO TID 02/26/2017 03/04/2017 Inactive take probiotic BID hydrochlorothiazide 25 mg tablet RxNorm: 114594 TAKE 1 TABLET BY MOUTH DAILY 02/06/2017 06/05/2017 Inactive Generic For:HYDRODIURIL 25 MG TABLET 02/06/2017 9: 16:31 AM doxycycline hyclate 100 mg tablet RxNorm: 886002 1 Tablet(s) PO BID 02/03/2017 02/12/2017 Inactive ProAir HFA 90 mcg/actuation aerosol inhaler RxNorm: 369798 INHALE TWO PUFFS BY MOUTH EVERY 4 TO 6 HOURS NEEDED 01/29/2017 05/08/2017 Inactive gemfibrozil 600 mg tablet RxNorm: 438540 1 Tablet(s) PO BID 12/19/2017 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 Benadryl 25 mg capsule RxNorm: 5865908 TAKE 2 CAPSULES BY MOUTH DIRECTED 12/24/2016 06/21/2017 Inactive 12/24/2016 10:18:24 AM WelChol 625 mg tablet RxNorm: 758752 TAKE 3 TABLETS BY MOUTH DAILY 12/04/2016 12/24/2016 Inactive 12/04/2016 1:23:00 PM amlodipine 5 mg tablet RxNorm: 478858 1 Tablet(s) PO QHS 201603/26/2017 Inactive hydrochlorothiazide 25 mg tablet RxNorm: 597810 TAKE 1 TABLET BY MOUTH DAILY 10/07/2016 02/03/2017 Inactive Generic For:HYDRODIURIL 25 MG TABLET 10/06/2016 10: 03:14 AM Levaquin 500 mg tablet RxNorm: 109090 1 Tablet(s) PO daily 04/201709/29/2016 Inactive prednisone 20 mg tablet RxNorm: 565131 3 Tablet(s) PO daily 06/201608/17/2016 Inactive Kenalog 40 mg/mL suspension for injection RxNorm: 2693551 Milliliter(s) Inj 08/13/2016 08/13/2016 Inactive albuterol sulfate 2.5 mg/3 mL (0.083 %) solution for nebulization RxNorm: 886712 3 Milliliter(s) INH QID as needed 08/13/2016 05/21/2017 Inactive Levemir 100 unit/mL subcutaneous solution RxNorm: 565579 10 Unit(s) SQ QAM 07/23/2016 No Stop Date Active Levemir 100 unit/mL subcutaneous solution RxNorm: 477990 50 Unit(s) SQ QHS 07/23/2016 No Stop Date Active amlodipine 5 mg tablet RxNorm: 284594 1 Tablet(s) PO QHS 201611/19/2016 Inactive Levemir 100 unit/mL subcutaneous solution RxNorm: 660673 50 Unit(s) SQ QHS 07/23/2016 07/22/2016 Inactive amlodipine 5 mg tablet RxNorm: 147968 1 Tablet(s) PO QHS 201607/22/2016 Inactive Levemir 100 unit/mL subcutaneous solution RxNorm: 311410 10 Unit(s) SQ QAM 07/23/2016 07/22/2016 Inactive losartan 25 mg tablet RxNorm: 488397 1 Tablet(s) PO daily 201607/22/2016 Inactive albuterol sulfate 2.5 mg/3 mL (0.083 %) solution for nebulization RxNorm: 130702 3 Milliliter(s) INH QID as needed 07/07/2016 08/12/2016 Inactive Benadryl 25 mg capsule RxNorm: 7210376 TAKE 2 CAPSULES BY MOUTH DIRECTED 07/01/2016 12/23/2016 Inactive 06/30/2016 11:13:10 AM Flonase Allergy Relief 50 mcg/actuation nasal spray, suspension RxNorm: 2359926 2 Pound NASAL BID 06/25/2016 No Stop Date Active Levaquin 500 mg tablet RxNorm: 678839 1 Tablet(s) PO daily Do NOT take at the same time as diflucan 06/25/20162016 Inactive albuterol sulfate 2.5 mg/3 mL (0.083 %) solution for nebulization RxNorm: 936280 3 Milliliter(s) INH QID as needed 06/18/2016 07/06/2016 Inactive Levaquin 500 mg tablet RxNorm: 843149 1 Tablet(s) PO daily Do NOT take at the same time as diflucan 06/18/20162016 Inactive prednisone 20 mg tablet RxNorm: 497116 2 Tablet(s) PO daily start if not feeling any better 06/18/2016 06/22/2016 Inactive Phenergan with Codeine Syrup RxNorm: 5 to 10 ml PO Q6 as needed cough 06/17/2016 05/11/2017 Inactive Phenergan with Codeine Syrup RxNorm: 5 to 10 ml PO Q6 as needed cough 05/23/2016 06/16/2016 Inactive hydrochlorothiazide 25 mg tablet RxNorm: 328893 TAKE ONE (1) TABLET BY MOUTH DAILY 05/12/2016 09/08/2016 Inactive Generic For:HYDRODIURIL 25 MG TABLET 2015 11:19:49 AM hydrochlorothiazide 25 mg tablet RxNorm: 388859 Tablet(s) TAKE ONE (1) TABLET BY MOUTH DAILY 05/09/2016 05/11/2016 Inactive Generic For:HYDRODIURIL 25 MG TABLET 9:16:15 AM doxycycline hyclate 100 mg tablet RxNorm: 887124 1 Tablet(s) PO BID 05/09/2016 05/18/2016 Inactive doxycycline hyclate 100 mg tablet RxNorm: 369841 1 Tablet(s) PO BID 05/09/2016 05/08/2016 Inactive ProAir HFA 90 mcg/actuation aerosol inhaler RxNorm: 324995 2 INH Q4-6H as needed 04/28/2016 08/25/2016 Inactive Diflucan 150 mg tablet RxNorm: 732542 1 Tablet(s) PO daily 08/03/2016 Inactive Benadryl 25 mg capsule RxNorm: 8134017 TAKE 2 CAPSULES BY MOUTH DIRECTED 04/03/2016 06/30/2016 Inactive 04/03/2016 12:37:36 PM Augmentin 500 mg-125 mg tablet RxNorm: 148274 1 Tablet(s) PO TID 03/28/2016 04/03/2016 Inactive take probiotic BID Levemir 100 unit/mL subcutaneous solution RxNorm: 939721 45 Unit(s) SQ QHS 02/28/2016 07/22/2016 Inactive Novolog 100 unit/mL subcutaneous solution RxNorm: 730032 Unit(s) inject 17 units 3 times daily and may use an extra 10units three times daily if needed based on glucose before meals. 02/28/20162016 Inactive atenolol 50 mg tablet RxNorm: 399825 1 Tablet(s) PO daily 201502/20/2017 Inactive Vitamin D2 50,000 unit capsule RxNorm: 618085 1 Capsule(s) PO QW 01/30/2016 09/01/2016 Inactive Kenalog 40 mg/mL suspension for injection RxNorm: 4590269 Milliliter(s) Inj 01/28/2016 01/28/2016 Inactive Benadryl 25 mg capsule RxNorm: 1666570 TAKE 2 CAPSULES BY MOUTH DIRECTED 01/07/2016 04/02/2016 Inactive 01/07/2016 9:16:09 AM hydrochlorothiazide 25 mg tablet RxNorm: 255223 TAKE ONE (1) TABLET BY MOUTH DAILY 01/07/2016 05/05/2016 Inactive Generic For:HYDRODIURIL 25 MG TABLET 2015 9:16:15 AM Diflucan 150 mg tablet RxNorm: 507885 1 Tablet(s) PO daily 10/201502/27/2016 Inactive Augmentin 500 mg-125 mg tablet RxNorm: 627602 1 Tablet(s) PO TID 12/13/2015 12/22/2015 Inactive metformin 500 mg tablet RxNorm: 933354 1/2 Tablet(s) PO BID 07/201507/22/2016 Inactive WelChol 625 mg tablet RxNorm: 346373 3 Tablet(s) PO every other day 11/15/2015 11/14/2015 Inactive Levemir 100 unit/mL subcutaneous solution RxNorm: 919574 45 Unit(s) SQ QHS 11/15/2015 02/27/2016 Inactive WelChol 625 mg tablet RxNorm: 725297 3 Tablet(s) PO daily 201503/13/2016 Inactive Cipro 500 mg tablet RxNorm: 408745 1 Tablet(s) PO BID 201511/12/2015 Inactive Cipro 500 mg tablet RxNorm: 389516 1 Tablet(s) PO BID 201511/05/2015 Inactive Pyridium 200 mg tablet RxNorm: 7405943 1 Tablet(s) PO TID 11/0502/27/2016 Inactive Levemir 100 unit/mL subcutaneous solution RxNorm: 385650 40 Unit(s) SQ QHS 10/08/2015 11/14/2015 Inactive Novolog 100 unit/mL subcutaneous solution RxNorm: 545475 inject 17 units 3 times daily 10/08/2015 02/27/2016 Inactive Benadryl 25 mg capsule RxNorm: 6502434 TAKE 2 CAPSULES BY MOUTH DIRECTED 09/25/2015 12/23/2015 Inactive 09/25/2015 9:14:23 AM N O T I C E PRESCRIPTION PREVIOUSLY AUTHORIZED BY DOCTOR:BOBY BARRETT hydrochlorothiazide 25 mg tablet RxNorm: 551209 Tablet(s) 1 Tablet(s) PO daily 09/11/2015 01/06/2016 Inactive Levemir 100 unit/mL subcutaneous solution RxNorm: 795559 40 Unit(s) SQ QHS 08/21/2015 08/20/2015 Inactive Levemir 100 unit/mL subcutaneous solution RxNorm: 333004 40 Unit(s) SQ QHS 08/21/2015 08/03/2016 Inactive WelChol 625 mg tablet RxNorm: 487208 3 Tablet(s) PO BID 201511/14/2015 Inactive Diflucan 150 mg tablet RxNorm: 103323 1 Tablet(s) PO daily 11/08/2015 Inactive Diflucan 150 mg tablet RxNorm: 179423 1 Tablet(s) PO daily 08/02/2015 Inactive Flonase Allergy Relief 50 mcg/actuation nasal spray, suspension RxNorm: 5366180 2 Pound NASAL BID 08/02/20152016 Inactive Levaquin 500 mg tablet RxNorm: 889041 1 Tablet(s) PO daily 08/08/2015 Inactive ceftriaxone 500 mg solution for injection RxNorm: 4770555 Inj 08/02/2015 08/02/2015 Inactive Kenalog 40 mg/mL suspension for injection RxNorm: 4062336 Milliliter(s) Inj 08/02/2015 08/02/2015 Inactive syringe (disposable) RxNorm: Miscellaneous 07/23/2015 07/16/2016 Inactive 0.5ml/30g/ 12.7mm BD Augmentin 500 mg-125 mg tablet RxNorm: 040805 1 Tablet(s) PO BID 07/17/2015 07/26/2015 Inactive hydrochlorothiazide 25 mg tablet RxNorm: 857520 Tablet(s) 1 Tablet(s) PO daily 04/30/2015 08/27/2015 Inactive Flonase Allergy Relief 50 mcg/actuation nasal spray, suspension RxNorm: 1 Pound NASAL BID 04/19/2015 08/16/2015 Inactive prednisone 20 mg tablet RxNorm: 490282 2 Tablet(s) PO daily x 5 days - start if the patient starts to have symptoms of shortness of breath 02/27/2016 Inactive Levaquin 500 mg tablet RxNorm: 814390 1 Tablet(s) PO daily 04/19/2015 Inactive Kenalog 40 mg/mL suspension for injection RxNorm: 8259738 2 Milliliter(s) Inj 04/10/2015 04/10/2015 Inactive prednisone 20 mg tablet RxNorm: 873739 3 Tablet(s) PO daily 04/14/2015 Inactive cefdinir 300 mg capsule RxNorm: 976275 1 Capsule(s) PO BID 04/08/2015 Inactive cefdinir 300 mg capsule RxNorm: 656708 1 Capsule(s) PO BID 04/15/2015 Inactive ProAir HFA 90 mcg/actuation aerosol inhaler RxNorm: 1867779 2 INH Q4-6H as needed 04/03/2015 04/02/2015 Inactive ProAir HFA 90 mcg/actuation aerosol inhaler RxNorm: 404701 2 INH Q4-6H as needed 04/03/2015 07/31/2015 Inactive ipratropium-albuterol 0.5 mg-3 mg(2.5 mg base)/3 mL nebulization soln RxNorm: 6861674 1 INH Q6 as needed 04/03/2015 09/01/2016 Inactive ipratropium-albuterol 0.5 mg-3 mg(2.5 mg base)/3 mL nebulization soln RxNorm: 7748764 1 INH Q6 as needed 04/03/2015 04/02/2015 Inactive Zithromax Z-Slim 250 mg tablet RxNorm: 477183 1 Tablet(s) PO UD 04/03/2015 11/08/2015 Inactive zpack as directed hydrocodone 10 mg-acetaminophen 325 mg tablet RxNorm: 627690 1 Tablet(s) PO Q6 as needed 03/09/2015 03/04/2017 Inactive atenolol 50 mg tablet RxNorm: 396149 1 Tablet(s) PO daily 201402/22/2016 Inactive syringe (disposable) RxNorm: Miscellaneous 02/23/2015 07/22/2015 Inactive 0.5ml/30g/ 12.7mm BD hydrochlorothiazide 25 mg tablet RxNorm: 025532 1 Tablet(s) PO daily 02/09/2015 04/29/2015 Inactive hydrochlorothiazide 25 mg tablet RxNorm: 872250 1 Tablet(s) PO daily 01/15/2015 02/08/2015 Inactive furosemide 20 mg tablet RxNorm: 315120 1 Tablet(s) PO daily No Start Date Active spironolactone 25 mg tablet RxNorm: 144638 1 Tablet(s) PO daily managed by [facility] No Start Date Active Flonase Allergy Relief 50 mcg/actuation nasal spray, suspension RxNorm: 7249991 1 Pound NASAL BID No Start Date Active rosuvastatin 10 mg tablet RxNorm: 023849 1 Tablet(s) PO daily No Start Date Active Vitamin D3 2,000 unit tablet RxNorm: 793218 1 Tablet(s) PO daily No Start Date Active Ventolin HFA 90 mcg/actuation aerosol inhaler RxNorm: 938486 1-2 Puff(s) INH Q4- 6H as needed No Start Date Active Aspirin Low Dose 81 mg tablet,delayed release RxNorm: 473058 1 Tablet(s) PO daily No Start Date Active Lyrica 50 mg capsule RxNorm: 484498 1 Capsule(s) PO BID No Start Date Active Fish Oil 300 mg-1,000 mg capsule RxNorm: 243633 1 Capsule(s) PO TID No Start Date Active enalapril maleate 10 mg tablet RxNorm: 348088 1 Tablet(s) PO BID No Start Date 07/13/2016 Inactive Pyridium 200 mg tablet RxNorm: 3176598 1 Tablet(s) PO TID No Start Date 11/05/2015 Inactive potassium chloride ER 10 mEq tablet,extended release RxNorm: 405866 1 Tablet(s) PO daily No Start Date 06/10/2017 Inactive hydrochlorothiazide 25 mg tablet RxNorm: 197278 1 Tablet(s) PO daily No Start Date 01/14/2015 Inactive syringe (disposable) RxNorm: Miscellaneous No Start Date 02/22/2015 Inactive Levemir 100 unit/mL subcutaneous solution RxNorm: 350769 SSI usually 28-38 Unit(s ) SQ No Start Date 08/03/2016 Inactive Phenergan with Codeine Syrup RxNorm: 5 to 10 ml PO Q6 as needed cough No Start Date 05/22/2016 Inactive Zithromax Z-Slim 250 mg tablet RxNorm: 735992 1 Tablet(s) PO UD No Start Date 04/02/2015 Inactive zpack as directed Novolog 100 unit/mL subcutaneous solution RxNorm: 149151 Unit(s) SQ per SSI No Start Date 10/07/2015 Inactive hydrocodone 10 mg-acetaminophen 325 mg tablet RxNorm: 855196 1 Tablet(s) PO Q6 No Start Date 03/08/2015 Inactive Levemir 100 unit/mL subcutaneous solution RxNorm: 681011 10 Unit(s) SQ QAM No Start Date 07/22/2016 Inactive WelChol 625 mg tablet RxNorm: 979678 3 Tablet(s) PO BID No Start Date 08/09/2015 Inactive Benadryl 25 mg capsule RxNorm: 2531690 Capsule(s) PO as needed No Start Date 09/24/2015 Inactive Vitamin D2 50,000 unit capsule RxNorm: 037491 1 Capsule(s) PO QW No Start Date 01/29/2016 Inactive atenolol 50 mg tablet RxNorm: 613758 1 Tablet(s) PO daily No Start Date 03/05/2017 Inactive Medication Administered Medication Codes Instructions Start Date Status Kenalog 40 mg/mL suspension for injection RxNorm: 8488835 Milliliter 08/13/2016 No longer Active Kenalog 40 mg/mL suspension for injection RxNorm: 3213283 Milliliter 01/28/2016 No longer Active ceftriaxone 500 mg solution for injection RxNorm: 1129922 08/02/2015 No longer Active Kenalog 40 mg/mL suspension for injection RxNorm: 2099860 Milliliter 08/02/2015 No longer Active Kenalog 40 mg/mL suspension for injection RxNorm: 7302252 2Milliliter 04/10/2015 No longer Active Immunizations Vaccine [...] Observation Code Item Item Code Result Date %Hba1C Dgd078 % HbA1c 93919-1 7.0 % 07/14/2016 %Hba1C Wbj151 Gluc Ave 154 mg/dL 07/14/2016 Comp Metabolic Fuk334 NA 136 mEq/L 07/14/2016 Comp Metabolic Cpk392 K 3.9 mEq/L 07/14/2016 Comp Metabolic Yww347 CL 101 mEq/L 07/14/2016 Comp Metabolic Iad079 CO2 28.0 mEq/L 07/14/2016 Comp Metabolic Jxm880 ANION GAP 11 07/14/2016 Comp Metabolic Wpg125 GLUCOSE 163 mg/dL 07/14/2016 Comp Metabolic Nye259 Creat 0.7 mg/dL 07/14/2016 Comp Metabolic Rlw291 eGFR 91 ml/min/1.73m2 07/14/2016 Comp Metabolic Dll862 BUN 12 mg/dL 07/14/2016 Comp Metabolic Utv064 B/C Ratio 17.9 Ratio 07/14/2016 Comp Metabolic Whw785 CALCIUM 9.4 mg/dL 07/14/2016 Comp Metabolic Rsq857 ALK PHOS 62 U/L 07/14/2016 Comp Metabolic Zss992 AST(SGOT) 41 U/L 07/14/2016 Comp Metabolic Uwv787 ALT(SGPT) 39 U/L 07/14/2016 Comp Metabolic Ulf133 BILI T 0.6 mg/dL 07/14/2016 Comp Metabolic Dmx033 ALBUMIN 3.7 g/dL 07/14/2016 Comp Metabolic Vtj051 TPRO 6.0 g/dL 07/14/2016 Comp Metabolic Xrs787 GLOB 2.3 g/dL 07/14/2016 Comp Metabolic Ylk325 A/G Ratio 1.6 Ratio 07/14/2016 Comp Metabolic Rrl636 Osmo 275 mOsmo 07/14/2016 Cbc With Differential Ord2 WBC 9.06 K/ul 02/28/2016 Cbc With Differential Ord2 RBC 4.61 M/ul 02/28/2016 Cbc With Differential Ord2 HGB 14.6 g/dl 02/28/2016 Cbc With Differential Ord2 HCT 43.9 % 02/28/2016 Cbc With Differential Ord2 Neut% 73.7 % 02/28/2016 Cbc With Differential Ord2 Lymph% 17.0 % 02/28/2016 Cbc With Differential Ord2 MCV 95.2 fl 02/28/2016 Cbc With Differential Ord2 MCH 31.7 pg 02/28/2016 Cbc With Differential Ord2 [place]% 8.8 % 02/28/2016 Cbc With Differential Ord2 [...] 1.54 K/ul 02/28/2016 Cbc With Differential Ord2 [place] ABS# 0.8 K/ul 02/28/2016 Cbc With Differential Ord2 Eos ABS# 0.0 K/ul 02/28/2016 Cbc With Differential Ord2 Baso ABS# 0.0 K/ul 02/28/2016 Vitamin D 25 Oh Eqh6324 VITAMIN D, 25 HYDROXY 16.62 ng/mL Comp Metabolic Gfx070 NA 137 mEq/L 01/16/2016 Comp Metabolic Azz512 K 3.6 mEq/L 01/16/2016 Comp Metabolic Rfd086 CL 100 mEq/L 01/16/2016 Comp Metabolic Fzq226 CO2 31.0 mEq/L 01/16/2016 Comp Metabolic Vok209 ANION GAP 10 01/16/2016 Comp Metabolic Woq904 GLUCOSE 164 mg/dL 01/16/2016 Comp Metabolic Fvt561 Creat 0.8 mg/dL 01/16/2016 Comp Metabolic Nca557 eGFR 79 ml/min/1.73m2 01/16/2016 Comp Metabolic Zka745 BUN 13 mg/dL 01/16/2016 Comp Metabolic Ega303 B/C Ratio 17.1 Ratio 01/16/2016 Comp Metabolic Xpt851 CALCIUM 9.1 mg/dL 01/16/2016 Comp Metabolic Wxu482 ALK PHOS 55 U/L 01/16/2016 Comp Metabolic Vyz723 AST(SGOT) 24 U/L 01/16/2016 Comp Metabolic Wsq219 ALT(SGPT) 30 U/L 01/16/2016 Comp Metabolic Ioa641 BILI T 0.5 mg/dL 01/16/2016 Comp Metabolic Fwe555 ALBUMIN 3.8 g/dL 01/16/2016 Comp Metabolic Bme328 TPRO 6.0 g/dL 01/16/2016 Comp Metabolic Rtd638 GLOB 2.2 g/dL 01/16/2016 Comp Metabolic Tny026 A/G Ratio 1.7 Ratio 01/16/2016 Comp Metabolic Oww784 Osmo 278 mOsmo 01/16/2016 Urine Culture Ucult Complete >100,000 col/ml aerobic growth sent to ref lab 12/14/2015 Urinalysis Ord28 U-Color Shiro 12/13/2015 Urinalysis Ord28 U-Clarity Slightly Cloudy 12/13/2015 [...] U-VOL VOLUME SUFFICIENT (10mL) 12/13/2015 Urinalysis Ord28 U-Com Culture to follow 12/13/2015 Urinalysis Ord28 U-Yeast NEGATIVE 12/13/2015 Lipid Ord30 CHOL 247 mg/dL 11/16/2015 Lipid Ord30 HDL 45.0 mg/dl 11/16/2015 Lipid Ord30 TRIG 191 mg/dL 11/16/2015 Lipid Ord30 LDL 164 mg/dL 11/16/2015 Lipid Ord30 C/HDL 5.5 Ratio 11/16/2015 %Hba1C Tpm781 % HbA1c 08542-3 6.5 % 11/16/2015 %Hba1C Zvy135 Gluc Ave 140 mg/dL 11/16/2015 Comp Metabolic Zgo121 NA 139 mEq/L 11/16/2015 Comp Metabolic Tbw474 K 3.5 mEq/L 11/16/2015 Comp Metabolic Iti960 CL 101 mEq/L 11/16/2015 Comp Metabolic Owx945 CO2 32.0 mEq/L 11/16/2015 Comp Metabolic Lmx802 ANION GAP 10 11/16/2015 Comp Metabolic Mxg765 GLUCOSE 100 mg/dL 11/16/2015 Comp Metabolic Xsb623 Creat 0.7 mg/dL 11/16/2015 Comp Metabolic Yoa833 eGFR 81 ml/min/1.73m2 11/16/2015 Comp Metabolic Vrd718 BUN 12 mg/dL 11/16/2015 Comp Metabolic Vqz522 B/C Ratio 16.2 Ratio 11/16/2015 Comp Metabolic Ipr683 CALCIUM 9.1 mg/dL 11/16/2015 Comp Metabolic Evk757 ALK PHOS 52 U/L 11/16/2015 Comp Metabolic Iqo258 AST(SGOT) 22 U/L 11/16/2015 Comp Metabolic Ssq371 ALT(SGPT) 27 U/L 11/16/2015 Comp Metabolic Fuv233 BILI T 0.9 mg/dL 11/16/2015 Comp Metabolic Bij377 ALBUMIN 3.6 g/dL 11/16/2015 Comp Metabolic Cgu533 TPRO 6.0 g/dL 11/16/2015 Comp Metabolic Wmm324 GLOB 2.4 g/dL 11/16/2015 Comp Metabolic Lhx773 A/G Ratio 1.5 Ratio 11/16/2015 Comp Metabolic Vue969 Osmo 277 mOsmo 11/16/2015 Magnesium Ord90 Mag 2.0 mg/dL 11/16/2015 Tsh Ord6 hTSH II 2.09 uIU/mL 08/02/2015 Comp Metabolic Exv869 NA 140 mEq/L 08/02/2015 Comp Metabolic Mla629 K 3.6 mEq/L 08/02/2015 Comp Metabolic Ode850 CL 101 mEq/L 08/02/2015 Comp Metabolic Awk451 CO2 30.0 mEq/L 08/02/2015 Comp Metabolic Kpq651 ANION GAP 13 08/02/2015 Comp Metabolic Fdx357 GLUCOSE 139 mg/dL 08/02/2015 Comp Metabolic Ojr509 Creat 0.8 mg/dL 08/02/2015 Comp Metabolic Psm466 eGFR 80 ml/min/1.73m2 08/02/2015 Comp Metabolic Drh268 BUN 13 mg/dL 08/02/2015 Comp Metabolic Iht272 B/C Ratio 17.3 Ratio 08/02/2015 Comp Metabolic Mmg939 CALCIUM 9.3 mg/dL 08/02/2015 Comp Metabolic Kep327 ALK PHOS 54 U/L 08/02/2015 Comp Metabolic Sku354 AST(SGOT) 27 U/L 08/02/2015 Comp Metabolic Vlb625 ALT(SGPT) 32 U/L 08/02/2015 Comp Metabolic Mqt935 BILI T 0.7 mg/dL 08/02/2015 Comp Metabolic Uxc827 ALBUMIN 3.7 g/dL 08/02/2015 Comp Metabolic Mwu624 TPRO 5.9 g/dL 08/02/2015 Comp Metabolic Ipz853 GLOB 2.2 g/dL 08/02/2015 Comp Metabolic Pkc959 A/G Ratio 1.7 Ratio 08/02/2015 Comp Metabolic Cln424 Osmo 282 mOsmo 08/02/2015 Cbc With Differential Ord2 WBC 6.26 K/ul 08/02/2015 Cbc With Differential Ord2 RBC 4.69 M/ul 08/02/2015 Cbc With Differential Ord2 HGB 14.8 g/dl 08/02/2015 Cbc With Differential Ord2 HCT 43.9 % 08/02/2015 Cbc With Differential Ord2 Neut% 57.8 % 08/02/2015 Cbc With Differential Ord2 Lymph% 25.7 % 08/02/2015 Cbc With Differential Ord2 MCV 93.6 fl 08/02/2015 Cbc With Differential Ord2 [place]% 10.1 % 08/02/2015 Cbc With Differential Ord2 MCH 31.6 pg 08/02/2015 Cbc With Differential Ord2 MCHC 33.7 pg 08/02/2015 Cbc With Differential Ord2 Eos% 5.6 % 08/02/2015 Cbc With Differential Ord2 Baso% 0.8 % 08/02/2015 Cbc With Differential Ord2 PLT 165 K/ul 08/02/2015 Cbc With Differential Ord2 Neut ABS# 3.62 K/ul 08/02/2015 Cbc With Differential Ord2 RDW 12.8 % 08/02/2015 Cbc With Differential Ord2 Lymph ABS# 1.61 K/ul 08/02/2015 Cbc With Differential Ord2 [place] ABS# 0.6 K/ul 08/02/2015 Cbc With Differential Ord2 Eos ABS# 0.4 K/ul 08/02/2015 Cbc With Differential Ord2 Baso ABS# 0.1 K/ul 08/02/2015 Cbc With Differential Ord2 New Analyzer Notice Please note new ref ranges starting 06-27-2015 due to implemntation of new five part differential hematolgy analyzer. 08/02/2015 %Hba1C Obr829 % HbA1c 28630-9 6.9 % 08/02/2015 %Hba1C Miu554 Gluc Ave 151 mg/dL 08/02/2015 Lipid Ord30 CHOL 227 mg/dL 08/02/2015 Lipid Ord30 HDL 41.0 mg/dl 08/02/2015 Lipid Ord30 TRIG 281 mg/dL 08/02/2015 Lipid Ord30 LDL 130 mg/dL 08/02/2015 Lipid Ord30 C/HDL 5.5 Ratio 08/02/2015 Review of Systems System Result Effective [...] time 07/14/2016 None Full Exam - General 1995 Psychiatric mood and affect Overall: normal mood [...] Procedure Codes Date THER/PROPH/DIAG INJ SC/IM CPT-4: 62886 08/13/2016 TRIAMCINOLONE ACET INJ NOS CPT-4: J3301 08/13/2016 ADMIN INFLUENZA VIRUS VAC CPT-4: G0008 02/28/2016 FLU VACC PRSV FREE INC ANTIG CPT-4: 12858 02/28/2016 TRIAMCINOLONE ACET INJ NOS CPT-4: J3301 01/28/2016 URINALYSIS NONAUTO W/O SCOPE CPT-4: 49809 11/06/2015 ROCEPHIN, PER 250 MG CPT-4: J0696 08/02/2015 TRIAMCINOLONE ACET INJ NOS CPT-4: J3301 08/02/2015 ADMIN INFLUENZA VIRUS VAC CPT-4: G0008 04/27/2015 FLU VACC PRSV FREE INC ANTIG Formatting Model/CDA Sections, Assigned to CPT-4: 88730Clwgapq 04/27/2015 TRIAMCINOLONE ACET INJ NOS CPT-4: J3301 [...] Code : 8480-6 BMI: 37.0 Code : 45313-4 Heart Rate 1 : 60 bpm Height: [...] data Encounters Encounter Performer Location Codes Date ([id number]) [id number] EST. PATIENT, LEVEL IV Diagnosis: Essential (primary) hypertension[ICD10: I10] Diagnosis: Type 2 diabetes mellitus with hyperglycemia[ICD10: E11.65] Diagnosis: Other allergic rhinitis[ICD10: J30.89] Shanthi Clay MD, [facility] CPT-4: 03999 12/25/2016 ([id number]) [id number] EST. PATIENT, LEVEL IV Diagnosis: Type 2 diabetes mellitus with hyperglycemia[ICD10: E11.65] Diagnosis: Essential (primary) hypertension[ICD10: I10] Diagnosis: Mixed hyperlipidemia[ICD10: E78.2] [facility] CPT-4: 77538 09/02/2016 ([id number]) [id number] EST. PATIENT, LEVEL IV Diagnosis: Essential (primary) hypertension[ICD10: I10] Shanthi Clay MD, [facility] CPT-4: 99311 08/13/2016 ([id number]) 20707 EST. PATIENT, LEVEL IV Diagnosis: Essential (primary) hypertension[ICD10: I10] Diagnosis: Cough[ICD10: R05] Diagnosis: Type 2 diabetes mellitus with hyperglycemia[ICD10: E11.65] Shanthi Clay MD [facility] CPT-4: 03001 07/14/2016 ([id number]) Miscellaneous no charge Diagnosis: Cough[ICD10: R05] Katelynn Clay MD [facility] CPT-4: 61880 06/25/2016 [id number] EST. PATIENT, LEVEL III Diagnosis: Acute laryngopharyngitis[ICD10: J06.0] Diagnosis: Other allergic rhinitis[ICD10: J30.89] Diagnosis: Cough[ICD10: R05] Katelynn Clay MD [facility] CPT-4: 40300 06/18/2016 [id number] EST. PATIENT, LEVEL III Diagnosis: Other allergic rhinitis[ICD10: J30.89] Diagnosis: Acute nasopharyngitis [common cold][ICD10: J00] Katelynn Clay MD [facility] CPT-4: 84296 05/07/2016 ([id number]) 99124 EST. PATIENT, LEVEL IV Diagnosis: Spontaneous ecchymoses[ICD10: R23.3] Diagnosis: Type 2 diabetes mellitus with hyperglycemia[ICD10: E11.65] Diagnosis: Essential (primary) hypertension[ICD10: I10] Diagnosis: Encounter for immunization[ICD10: Z23] Shanthi Clay MD [facility] CPT-4: 03340 02/28/2016 [id number] EST. PATIENT, LEVEL V Diagnosis: Acute recurrent maxillary sinusitis[ICD10: J01.01] Diagnosis: Other allergic rhinitis[ICD10: J30.89] Diagnosis: Cough[ICD10: R05] Katelynn Clay MD [facility] CPT-4: 92544 01/28/2016 ([id number]) 64136 EST. PATIENT, LEVEL IV Diagnosis: Essential (primary) hypertension[ICD10: I10] Diagnosis: Type 2 diabetes mellitus with hyperglycemia[ICD10: E11.65] Diagnosis: Mixed hyperlipidemia[ICD10: E78.2] Shanthi Clay MD, [facility] CPT-4: 41445 11/15/2015 93325 EST. PATIENT, LEVEL IV Diagnosis: Acute recurrent maxillary sinusitis[ICD10: J01.01] Diagnosis: Cough[ICD10: R05] Diagnosis: Type 2 diabetes mellitus with hyperglycemia[ICD10: E11.65] Diagnosis: Essential (primary) hypertension[ICD10: I10] Katelynn Clay MD, [facility] CPT-4: 52017 08/02/2015 ([id number]) 28291 EST. PATIENT, LEVEL IV Diagnosis: Essential (primary) hypertension[ICD10: I10] Diagnosis: Type 2 diabetes mellitus with hyperglycemia[ICD10: E11.65] Diagnosis: Acute maxillary sinusitis, unspecified[ICD10: J01.00] Sahnthi Clay MD, [facility] CPT-4: 53357 07/17/2015 ([id number]) 96863 EST. PATIENT, LEVEL IV Diagnosis: Acute bronchitis, unspecified[ICD10: J20.9] Diagnosis: Cough[ICD10: R05] Diagnosis: Type 2 diabetes mellitus with hyperglycemia[ICD10: E11.65] Diagnosis: Essential (primary) hypertension[ICD10: I10] Shanthi Clay MD, [facility] CPT-4: 14441 04/19/2015 [id number] EST. PATIENT, LEVEL III Diagnosis: Acute bronchitis, unspecified[ICD10: J20.9] Diagnosis: Type 2 diabetes mellitus with hyperglycemia[ICD10: E11.65] Diagnosis: Essential (primary) hypertension[ICD10: I10] [facility] CPT-4: 24120 04/10/2015 ([id number]) OFFICE VISIT, NEW - LEVEL 4 Diagnosis: DIABETES TYPE II[ICD9: 250.00] Diagnosis: ESSENTIAL HYPERTENSION[ICD9: 401.9] Diagnosis: Peripheral neuropathy[ICD9: 356.9] [facility] CPT-4: 43307 12/21/2014 Plan of Care Planned Activity Notes Codes Status Date Appointment: [phone] [facility] [place] ([facility] min[facility] Complex 04/30/2017 Appointment[phone] [place] Complex 02/04/2017 Appointment: [facility] [phone] [facility] [place] (15 min) Moderate 12/25/2016 Patient Education: Patient Medication Summary Completed 12/25/2016 Appointment: [facility] [phone] [facility] [place] ([place] min) Moderate 12/02/2016 Appointment: [facility] [phone] [facility] [place] ([place] min) Moderate 09/02/2016 Patient Education: Patient Medication Summary Completed 09/02/2016 Appointment: [facility] [phone] [facility] [place] ([place] min) Moderate 08/13/2016 Patient Education: Patient Medication Summary Completed 08/13/2016 Patient Education: Patient Medication Summary Completed 07/14/2016 Appointment: [facility] [phone] [facility] [place] ([place] min) Moderate 06/26/2016 Appointment: Nurse Visit 06/25/2016 Patient Education: Patient Medication Summary Completed 06/25/2016 Appointment: [phone] [facility] [place] ([place] min) Complex 06/24/2016 Appointment: [facility] [phone] [facility] [place] ([place] min) Complex 06/18/2016 Patient Education: Patient Medication Summary Completed 06/18/2016 Appointment: [facility] Cue[phone] [facility] [place] (15 min) Moderate 05/07/2016 Patient Education: Patient Medication Summary Completed 05/07/2016 Appointment: [facility] [phone] [facility] [place] ([place] min) Moderate 02/28/2016 Patient Education: Patient Medication Summary Completed 02/28/2016 Appointment: [phone] [facility] [place] (10 min) Simple 01/28/2016 Patient Education: Patient Medication Summary Completed 01/28/2016 Patient Education: Patient Medication Summary Completed 12/13/2015 Patient Education: Patient Medication Summary Completed 11/15/2015 Appointment: Lab Draw 11/06/2015 Patient Education: Patient Medication Summary Completed 11/06/2015 Care Plan: Urine Culture Pending 11/06/2015 Appointment: [facility] [phone] [facility] [place] ([place] min) Moderate 10/18/2015 Patient Education: Patient Medication Summary Completed 08/02/2015 Patient Education: Hypertension Completed 08/02/2015 Appointment: [facility] [phone] [facility] [place] ([place] min) Moderate 07/17/2015 Patient Education: Patient Medication Summary Completed 07/17/2015 Patient Education: Hypertension Completed 07/17/2015 Appointment: [facility] [phone] [facility] [place] ([place] min) Moderate 07/16/2015 Appointment: [facility] [phone] [facility] [place] ([place] min) Moderate 06/13/2015 Appointment: Injection 04/27/2015 Patient Education: Patient Medication Summary Completed 04/27/2015 Appointment: [facility] [phone] [facility] [place] (15 min) Moderate 04/19/2015 Patient Education: Patient Medication Summary Completed 04/19/2015 Patient Education: Hypertension Completed 04/19/2015 Appointment: (30 min) Complex 04/10/2015 Patient Education: Patient Medication Summary Completed 04/10/2015 Patient Education: Hypertension Completed 04/10/2015 Appointment: [facility] [phone] [facility] [place] ([place] min) Moderate 03/15/2015 Appointment: Shanthi Clay [facility]el: [facility] [place] ([place] New Patient 12/21/2014 Patient Education: Patient Medication Summary Completed 12/21/2014 Patient Education: Hypertension Completed 12/21/2014 Instructions No Instructions
--- OUTSIDE RECORDS SUMMARY | 2017-08-07 08:31 | XMS REPORT | CCD ---
Author Author [facility] Organization [facility] Address [address] [place] [address] Phone Care Team Providers Care Learning Coordinator Name Role Phone PP Unavailable CCM Unavailable Summary Purpose Interface Exchange Insurance Providers Payer name Policy type / Coverage type Covered republican ID Effective Begin Date Effective End Date WPS Medicare Part B Medicare Part B [id number] Unknown Unknown AARP Medicare Part B [id number] Unknown Unknown Family history Mother Diagnosis Age At Onset No Family Disease Entered N/A Social History Social History Element Codes Description Effective Dates Marital status Unknown Tonie 12/21/2014 Number of children Unknown 1 12/21/2014 Employment Unknown Retired 12/21/[address]: 5495277 Quit over 10 years ago 1988 12/21/2014 [...] Instructions Levemir 100 unit/mL subcutaneous solution RxNorm: 187618 10 Unit(s) SQ QAM 07/27/2017 No Stop Date Active hydrocodone 10 mg-acetaminophen 325 mg tablet RxNorm: 334985 1 Tablet(s) PO Q6 as needed 07/10/2017 08/08/2017 Active hydrochlorothiazide 25 mg tablet RxNorm: 852947 Tablet(s) TAKE 1 TABLET BY MOUTH DAILY 06/11/2017 12/07/2017 Active syringe (disposable) RxNorm: Miscellaneous 06/02/2017 11/23/2018 Active 0.5ml/30g/ 12.7mm BD albuterol sulfate 2.5 mg/3 mL (0.083 %) solution for nebulization RxNorm: 408758 3 Milliliter(s) INH QID as needed 05/22/2017 No Stop Date Active Keflex 500 mg capsule RxNorm: 978716 1 Capsule(s) PO TID 201605/18/2017 Inactive Keflex 500 mg capsule RxNorm: 168030 1 Capsule(s) PO TID 201605/11/2017 Inactive Phenergan with Codeine Syrup RxNorm: 5 to 10 ml PO QID as needed cough 05/12/2017 05/18/2017 Inactive hydrocodone 10 mg-acetaminophen 325 mg tablet RxNorm: 635971 1 Tablet(s) PO Q6 as needed 05/05/2017 06/03/2017 Inactive amlodipine 5 mg tablet RxNorm: 649628 TAKE ONE TABLET BY MOUTH DAILY AT BEDTIME 04/03/2017 09/29/2017 Active Generic For:NORVASC 5 MG TABLET 04/03/2017 9:17:21 AM meclizine 12.5 mg tablet RxNorm: 561003 1 Tablet(s) PO TID as needed 03/10/2017 03/19/2017 Inactive meclizine 12.5 mg tablet RxNorm: 734722 1 Tablet(s) PO TID as needed 03/10/2017 03/09/2017 Inactive atenolol 50 mg tablet RxNorm: 900683 1 Tablet(s) PO daily 201607/03/2017 Inactive Novolog 100 unit/mL subcutaneous solution RxNorm: 225978 INJECT 17 UNITS SUBCUTANEOUSLY THREE TIMES DAILY BEFORE MEALS -MAY USE EXTRA 10 UNITS THREE TIMES DAILY IF NEEDED 03/05/20172017 Active 03/05/2017 4:06:58 PM hydrocodone 10 mg-acetaminophen 325 mg tablet RxNorm: 359837 1 Tablet(s) PO Q6 as needed 03/05/2017 05/04/2017 Inactive losartan 25 mg tablet RxNorm: 310147 1 Tablet(s) PO daily 201609/23/2017 Active prednisone 20 mg tablet RxNorm: 224628 3 Tablet(s) PO daily 03/02/2017 Inactive Augmentin 500 mg-125 mg tablet RxNorm: 500018 1 Tablet(s) PO TID 02/26/2017 03/04/2017 Inactive take probiotic BID hydrochlorothiazide 25 mg tablet RxNorm: 516228 TAKE 1 TABLET BY MOUTH DAILY 02/06/2017 06/05/2017 Inactive Generic For:HYDRODIURIL 25 MG TABLET 02/06/2017 9: 16:31 AM doxycycline hyclate 100 mg tablet RxNorm: 886454 1 Tablet(s) PO BID 02/03/2017 02/12/2017 Inactive ProAir HFA 90 mcg/actuation aerosol inhaler RxNorm: 383288 INHALE TWO PUFFS BY MOUTH EVERY 4 TO 6 HOURS NEEDED 01/29/2017 05/08/2017 Inactive gemfibrozil 600 mg tablet RxNorm: 783922 1 Tablet(s) PO BID 12/19/2017 Active 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 Benadryl 25 mg capsule RxNorm: 5119315 TAKE 2 CAPSULES BY MOUTH DIRECTED 12/24/2016 06/21/2017 Inactive 12/24/2016 10:18:24 AM WelChol 625 mg tablet RxNorm: 642950 TAKE 3 TABLETS BY MOUTH DAILY 12/04/2016 12/24/2016 Inactive 12/04/2016 1:23:00 PM amlodipine 5 mg tablet RxNorm: 563463 1 Tablet(s) PO QHS 201603/26/2017 Inactive hydrochlorothiazide 25 mg tablet RxNorm: 171787 TAKE 1 TABLET BY MOUTH DAILY 10/07/2016 02/03/2017 Inactive Generic For:HYDRODIURIL 25 MG TABLET 10/06/2016 10: 03:14 AM Levaquin 500 mg tablet RxNorm: 528866 1 Tablet(s) PO daily 04/201709/29/2016 Inactive prednisone 20 mg tablet RxNorm: 560378 3 Tablet(s) PO daily 06/201608/17/2016 Inactive Kenalog 40 mg/mL suspension for injection RxNorm: 6700960 Milliliter(s) Inj 08/13/2016 08/13/2016 Inactive albuterol sulfate 2.5 mg/3 mL (0.083 %) solution for nebulization RxNorm: 689707 3 Milliliter(s) INH QID as needed 08/13/2016 05/21/2017 Inactive Levemir 100 unit/mL subcutaneous solution RxNorm: 415743 50 Unit(s) SQ QHS 07/23/2016 No Stop Date Active amlodipine 5 mg tablet RxNorm: 091481 1 Tablet(s) PO QHS 201611/19/2016 Inactive Levemir 100 unit/mL subcutaneous solution RxNorm: 223575 50 Unit(s) SQ QHS 07/23/2016 07/22/2016 Inactive Levemir 100 unit/mL subcutaneous solution RxNorm: 509055 10 Unit(s) SQ QAM 07/23/2016 07/26/2017 Inactive amlodipine 5 mg tablet RxNorm: 847295 1 Tablet(s) PO QHS 201607/22/2016 Inactive Levemir 100 unit/mL subcutaneous solution RxNorm: 548953 10 Unit(s) SQ QAM 07/23/2016 07/22/2016 Inactive losartan 25 mg tablet RxNorm: 749813 1 Tablet(s) PO daily 201607/22/2016 Inactive albuterol sulfate 2.5 mg/3 mL (0.083 %) solution for nebulization RxNorm: 097677 3 Milliliter(s) INH QID as needed 07/07/2016 08/12/2016 Inactive Benadryl 25 mg capsule RxNorm: 6198732 TAKE 2 CAPSULES BY MOUTH DIRECTED 07/01/2016 12/23/2016 Inactive 06/30/2016 11:13:10 AM Flonase Allergy Relief 50 mcg/actuation nasal spray, suspension RxNorm: 1579128 2 [place] NASAL BID 06/25/2016 No Stop Date Active Levaquin 500 mg tablet RxNorm: 829902 1 Tablet(s) PO daily Do NOT take at the same time as diflucan 06/25/20162016 Inactive albuterol sulfate 2.5 mg/3 mL (0.083 %) solution for nebulization RxNorm: 176059 3 Milliliter(s) INH QID as needed 06/18/2016 07/06/2016 Inactive Levaquin 500 mg tablet RxNorm: 133996 1 Tablet(s) PO daily Do NOT take at the same time as diflucan 06/18/20162016 Inactive prednisone 20 mg tablet RxNorm: 062165 2 Tablet(s) PO daily start if not feeling any better 06/18/2016 06/22/2016 Inactive Phenergan with Codeine Syrup RxNorm: 5 to 10 ml PO Q6 as needed cough 06/17/2016 05/11/2017 Inactive Phenergan with Codeine Syrup RxNorm: 5 to 10 ml PO Q6 as needed cough 05/23/2016 06/16/2016 Inactive hydrochlorothiazide 25 mg tablet RxNorm: 171114 TAKE ONE (1) TABLET BY MOUTH DAILY 05/12/2016 09/08/2016 Inactive Generic For:HYDRODIURIL 25 MG TABLET 2015 11:19:49 AM hydrochlorothiazide 25 mg tablet RxNorm: 897329 Tablet(s) TAKE ONE (1) TABLET BY MOUTH DAILY 05/09/2016 05/11/2016 Inactive Generic For:HYDRODIURIL 25 MG TABLET 9:16:15 AM doxycycline hyclate 100 mg tablet RxNorm: 453561 1 Tablet(s) PO BID 05/09/2016 05/18/2016 Inactive doxycycline hyclate 100 mg tablet RxNorm: 908397 1 Tablet(s) PO BID 05/09/2016 05/08/2016 Inactive ProAir HFA 90 mcg/actuation aerosol inhaler RxNorm: 952981 2 INH Q4-6H as needed 04/28/2016 08/25/2016 Inactive Diflucan 150 mg tablet RxNorm: 157093 1 Tablet(s) PO daily 08/03/2016 Inactive Benadryl 25 mg capsule RxNorm: 4647349 TAKE 2 CAPSULES BY MOUTH DIRECTED 04/03/2016 06/30/2016 Inactive 04/03/2016 12:37:36 PM Augmentin 500 mg-125 mg tablet RxNorm: 234277 1 Tablet(s) PO TID 03/28/2016 04/03/2016 Inactive take probiotic BID Levemir 100 unit/mL subcutaneous solution RxNorm: 568310 45 Unit(s) SQ QHS 02/28/2016 07/22/2016 Inactive Novolog 100 unit/mL subcutaneous solution RxNorm: 748521 Unit(s) inject 17 units 3 times daily and may use an extra 10units three times daily if needed based on glucose before meals. 02/28/20162016 Inactive atenolol 50 mg tablet RxNorm: 613303 1 Tablet(s) PO daily 201502/20/2017 Inactive Vitamin D2 50,000 unit capsule RxNorm: 906802 1 Capsule(s) PO QW 01/30/2016 09/01/2016 Inactive Kenalog 40 mg/mL suspension for injection RxNorm: 2355709 Milliliter(s) Inj 01/28/2016 01/28/2016 Inactive Benadryl 25 mg capsule RxNorm: 4268843 TAKE 2 CAPSULES BY MOUTH DIRECTED 01/07/2016 04/02/2016 Inactive 01/07/2016 9:16:09 AM hydrochlorothiazide 25 mg tablet RxNorm: 106817 TAKE ONE (1) TABLET BY MOUTH DAILY 01/07/2016 05/05/2016 Inactive Generic For:HYDRODIURIL 25 MG TABLET 2015 9:16:15 AM Diflucan 150 mg tablet RxNorm: 188382 1 Tablet(s) PO daily 10/201502/27/2016 Inactive Augmentin 500 mg-125 mg tablet RxNorm: 989059 1 Tablet(s) PO TID 12/13/2015 12/22/2015 Inactive metformin 500 mg tablet RxNorm: 827248 1/2 Tablet(s) PO BID 07/201507/22/2016 Inactive WelChol 625 mg tablet RxNorm: 457397 3 Tablet(s) PO every other day 11/15/2015 11/14/2015 Inactive Levemir 100 unit/mL subcutaneous solution RxNorm: 756730 45 Unit(s) SQ QHS 11/15/2015 02/27/2016 Inactive WelChol 625 mg tablet RxNorm: 858605 3 Tablet(s) PO daily 201503/13/2016 Inactive Cipro 500 mg tablet RxNorm: 446902 1 Tablet(s) PO BID 201511/12/2015 Inactive Cipro 500 mg tablet RxNorm: 297651 1 Tablet(s) PO BID 201511/05/2015 Inactive Pyridium 200 mg tablet RxNorm: 9666872 1 Tablet(s) PO TID 11/0502/27/2016 Inactive Levemir 100 unit/mL subcutaneous solution RxNorm: 747945 40 Unit(s) SQ QHS 10/08/2015 11/14/2015 Inactive Novolog 100 unit/mL subcutaneous solution RxNorm: 840693 inject 17 units 3 times daily 10/08/2015 02/27/2016 Inactive Benadryl 25 mg capsule RxNorm: 1165050 TAKE 2 CAPSULES BY MOUTH DIRECTED 09/25/2015 12/23/2015 Inactive 09/25/2015 9:14:23 AM N O T I C E PRESCRIPTION PREVIOUSLY AUTHORIZED BY DOCTOR:BOBY BARRETT hydrochlorothiazide 25 mg tablet RxNorm: 179965 Tablet(s) 1 Tablet(s) PO daily 09/11/2015 01/06/2016 Inactive Levemir 100 unit/mL subcutaneous solution RxNorm: 086097 40 Unit(s) SQ QHS 08/21/2015 08/20/2015 Inactive Levemir 100 unit/mL subcutaneous solution RxNorm: 905905 40 Unit(s) SQ QHS 08/21/2015 08/03/2016 Inactive WelChol 625 mg tablet RxNorm: 819939 3 Tablet(s) PO BID 201511/14/2015 Inactive Diflucan 150 mg tablet RxNorm: 996462 1 Tablet(s) PO daily 11/08/2015 Inactive Diflucan 150 mg tablet RxNorm: 932675 1 Tablet(s) PO daily 08/02/2015 Inactive Flonase Allergy Relief 50 mcg/actuation nasal spray, suspension RxNorm: 2445117 2 [place] NASAL BID 08/02/20152016 Inactive Levaquin 500 mg tablet RxNorm: 945271 1 Tablet(s) PO daily 08/08/2015 Inactive ceftriaxone 500 mg solution for injection RxNorm: 0385528 Inj 08/02/2015 08/02/2015 Inactive Kenalog 40 mg/mL suspension for injection RxNorm: 5751550 Milliliter(s) Inj 08/02/2015 08/02/2015 Inactive syringe (disposable) RxNorm: Miscellaneous 07/23/2015 07/16/2016 Inactive 0.5ml/30g/ 12.7mm BD Augmentin 500 mg-125 mg tablet RxNorm: 580332 1 Tablet(s) PO BID 07/17/2015 07/26/2015 Inactive hydrochlorothiazide 25 mg tablet RxNorm: 197928 Tablet(s) 1 Tablet(s) PO daily 04/30/2015 08/27/2015 Inactive Flonase Allergy Relief 50 mcg/actuation nasal spray, suspension RxNorm: 1 [place] NASAL BID 04/19/2015 08/16/2015 Inactive prednisone 20 mg tablet RxNorm: 774127 2 Tablet(s) PO daily x 5 days - start if the patient starts to have symptoms of shortness of breath 02/27/2016 Inactive Levaquin 500 mg tablet RxNorm: 547788 1 Tablet(s) PO daily 04/19/2015 Inactive Kenalog 40 mg/mL suspension for injection RxNorm: 3478747 2 Milliliter(s) Inj 04/10/2015 04/10/2015 Inactive prednisone 20 mg tablet RxNorm: 919848 3 Tablet(s) PO daily 04/14/2015 Inactive cefdinir 300 mg capsule RxNorm: 868306 1 Capsule(s) PO BID 04/08/2015 Inactive cefdinir 300 mg capsule RxNorm: 162300 1 Capsule(s) PO BID 04/15/2015 Inactive ProAir HFA 90 mcg/actuation aerosol inhaler RxNorm: 9307842 2 INH Q4-6H as needed 04/03/2015 04/02/2015 Inactive ProAir HFA 90 mcg/actuation aerosol inhaler RxNorm: 396761 2 INH Q4-6H as needed 04/03/2015 07/31/2015 Inactive ipratropium-albuterol 0.5 mg-3 mg(2.5 mg base)/3 mL nebulization soln RxNorm: 3559085 1 INH Q6 as needed 04/03/2015 09/01/2016 Inactive ipratropium-albuterol 0.5 mg-3 mg(2.5 mg base)/3 mL nebulization soln RxNorm: 2087910 1 INH Q6 as needed 04/03/2015 04/02/2015 Inactive Zithromax Z-Slim 250 mg tablet RxNorm: 744811 1 Tablet(s) PO UD 04/03/2015 11/08/2015 Inactive zpack as directed hydrocodone 10 mg-acetaminophen 325 mg tablet RxNorm: 906879 1 Tablet(s) PO Q6 as needed 03/09/2015 03/04/2017 Inactive atenolol 50 mg tablet RxNorm: 537105 1 Tablet(s) PO daily 201402/22/2016 Inactive syringe (disposable) RxNorm: Miscellaneous 02/23/2015 07/22/2015 Inactive 0.5ml/30g/ 12.7mm BD hydrochlorothiazide 25 mg tablet RxNorm: 237786 1 Tablet(s) PO daily 02/09/2015 04/29/2015 Inactive hydrochlorothiazide 25 mg tablet RxNorm: 965601 1 Tablet(s) PO daily 01/15/2015 02/08/2015 Inactive furosemide 20 mg tablet RxNorm: 655786 1 Tablet(s) PO daily No Start Date Active spironolactone 25 mg tablet RxNorm: 955844 1 Tablet(s) PO daily managed by [facility] No Start Date Active Flonase Allergy Relief 50 mcg/actuation nasal spray, suspension RxNorm: 9826570 1 [place] NASAL BID No Start Date Active rosuvastatin 10 mg tablet RxNorm: 186819 1 Tablet(s) PO daily No Start Date Active Vitamin D3 2,000 unit tablet RxNorm: 419151 1 Tablet(s) PO daily No Start Date Active Ventolin HFA 90 mcg/actuation aerosol inhaler RxNorm: 163709 1-2 Puff(s) INH Q4- 6H as needed No Start Date Active Aspirin Low Dose 81 mg tablet,delayed release RxNorm: 757824 1 Tablet(s) PO daily No Start Date Active Lyrica 50 mg capsule RxNorm: 077767 1 Capsule(s) PO BID No Start Date Active Fish Oil 300 mg-1,000 mg capsule RxNorm: 543272 1 Capsule(s) PO TID No Start Date Active enalapril maleate 10 mg tablet RxNorm: 636212 1 Tablet(s) PO BID No Start Date 07/13/2016 Inactive Pyridium 200 mg tablet RxNorm: 5429762 1 Tablet(s) PO TID No Start Date 11/05/2015 Inactive potassium chloride ER 10 mEq tablet,extended release RxNorm: 847797 1 Tablet(s) PO daily No Start Date 06/10/2017 Inactive hydrochlorothiazide 25 mg tablet RxNorm: 809099 1 Tablet(s) PO daily No Start Date 01/14/2015 Inactive syringe (disposable) RxNorm: Miscellaneous No Start Date 02/22/2015 Inactive Levemir 100 unit/mL subcutaneous solution RxNorm: 903706 SSI usually 28-38 Unit(s ) SQ No Start Date 08/03/2016 Inactive Phenergan with Codeine Syrup RxNorm: 5 to 10 ml PO Q6 as needed cough No Start Date 05/22/2016 Inactive Zithromax Z-Slim 250 mg tablet RxNorm: 686282 1 Tablet(s) PO UD No Start Date 04/02/2015 Inactive zpack as directed Novolog 100 unit/mL subcutaneous solution RxNorm: 208290 Unit(s) SQ per SSI No Start Date 10/07/2015 Inactive hydrocodone 10 mg-acetaminophen 325 mg tablet RxNorm: 174964 1 Tablet(s) PO Q6 No Start Date 03/08/2015 Inactive Levemir 100 unit/mL subcutaneous solution RxNorm: 542786 10 Unit(s) SQ QAM No Start Date 07/22/2016 Inactive WelChol 625 mg tablet RxNorm: 786459 3 Tablet(s) PO BID No Start Date 08/09/2015 Inactive Benadryl 25 mg capsule RxNorm: 1983106 Capsule(s) PO as needed No Start Date 09/24/2015 Inactive Vitamin D2 50,000 unit capsule RxNorm: 268698 1 Capsule(s) PO QW No Start Date 01/29/2016 Inactive atenolol 50 mg tablet RxNorm: 315427 1 Tablet(s) PO daily No Start Date 03/05/2017 Inactive Medication Administered Medication Codes Instructions Start Date Status Kenalog 40 mg/mL suspension for injection RxNorm: 9866283 Milliliter 08/13/2016 No longer Active Kenalog 40 mg/mL suspension for injection RxNorm: 1805531 Milliliter 01/28/2016 No longer Active ceftriaxone 500 mg solution for injection RxNorm: 1234460 08/02/2015 No longer Active Kenalog 40 mg/mL suspension for injection RxNorm: 6338930 Milliliter 08/02/2015 No longer Active Kenalog 40 mg/mL suspension for injection RxNorm: 6869985 2Milliliter 04/10/2015 No longer Active Immunizations Vaccine [...] Item Item Code Result Date Comp Metabolic Xjl992 NA 136 mEq/L 07/14/2016 Comp Metabolic Xyk361 K 3.9 mEq/L 07/14/2016 Comp Metabolic Lhe968 CL 101 mEq/L 07/14/2016 Comp Metabolic Ais526 CO2 28.0 mEq/L 07/14/2016 Comp Metabolic Glw593 ANION GAP 11 07/14/2016 Comp Metabolic Xqw477 GLUCOSE 163 mg/dL 07/14/2016 Comp Metabolic Mnd497 Creat 0.7 mg/dL 07/14/2016 Comp Metabolic Glj194 eGFR 91 ml/min/1.73m2 07/14/2016 Comp Metabolic Zdv653 BUN 12 mg/dL 07/14/2016 Comp Metabolic Ukb741 B/C Ratio 17.9 Ratio 07/14/2016 Comp Metabolic Srz637 CALCIUM 9.4 mg/dL 07/14/2016 Comp Metabolic Imz674 ALK PHOS 62 U/L 07/14/2016 Comp Metabolic Dxz823 AST(SGOT) 41 U/L 07/14/2016 Comp Metabolic Zwl465 ALT(SGPT) 39 U/L 07/14/2016 Comp Metabolic Nam715 BILI T 0.6 mg/dL 07/14/2016 Comp Metabolic Ufm786 ALBUMIN 3.7 g/dL 07/14/2016 Comp Metabolic Jax124 TPRO 6.0 g/dL 07/14/2016 Comp Metabolic Nwb605 GLOB 2.3 g/dL 07/14/2016 Comp Metabolic Bnd580 A/G Ratio 1.6 Ratio 07/14/2016 Comp Metabolic Rrb828 Osmo 275 mOsmo 07/14/2016 %Hba1C Lzj135 % HbA1c 07405-0 7.0 % 07/14/2016 %Hba1C Hru441 Gluc Ave 154 mg/dL 07/14/2016 Cbc With [...] 31.7 pg 02/28/2016 Cbc With Differential Ord2 [place]% 8.8 % 02/28/2016 Cbc With Differential Ord2 [...] 1.54 K/ul 02/28/2016 Cbc With Differential Ord2 [place] ABS# 0.8 K/ul 02/28/2016 Cbc With Differential Ord2 Eos ABS# 0.0 K/ul 02/28/2016 Cbc With Differential Ord2 Baso ABS# 0.0 K/ul 02/28/2016 Vitamin D 25 Oh Atx8692 VITAMIN D, 25 HYDROXY 16.62 ng/mL Comp Metabolic Fji685 NA 137 mEq/L 01/16/2016 Comp Metabolic Mom704 K 3.6 mEq/L 01/16/2016 Comp Metabolic Xon819 CL 100 mEq/L 01/16/2016 Comp Metabolic Uzq303 CO2 31.0 mEq/L 01/16/2016 Comp Metabolic Xvj631 ANION GAP 10 01/16/2016 Comp Metabolic Yzl372 GLUCOSE 164 mg/dL 01/16/2016 Comp Metabolic Maq677 Creat 0.8 mg/dL 01/16/2016 Comp Metabolic Hej409 eGFR 79 ml/min/1.73m2 01/16/2016 Comp Metabolic Fhi544 BUN 13 mg/dL 01/16/2016 Comp Metabolic Qej168 B/C Ratio 17.1 Ratio 01/16/2016 Comp Metabolic Sxt443 CALCIUM 9.1 mg/dL 01/16/2016 Comp Metabolic Drx007 ALK PHOS 55 U/L 01/16/2016 Comp Metabolic Nvz660 AST(SGOT) 24 U/L 01/16/2016 Comp Metabolic Pjk326 ALT(SGPT) 30 U/L 01/16/2016 Comp Metabolic Wem001 BILI T 0.5 mg/dL 01/16/2016 Comp Metabolic Jwq075 ALBUMIN 3.8 g/dL 01/16/2016 Comp Metabolic Scm318 TPRO 6.0 g/dL 01/16/2016 Comp Metabolic Dae986 GLOB 2.2 g/dL 01/16/2016 Comp Metabolic Qmk860 A/G Ratio 1.7 Ratio 01/16/2016 Comp Metabolic Nps238 Osmo 278 mOsmo 01/16/2016 Urine Culture Ucult Complete >100,000 col/ml aerobic growth sent to ref lab 12/14/2015 Urinalysis Ord28 U-Color [place] 12/13/2015 Urinalysis Ord28 U-Clarity Slightly Cloudy 12/13/2015 [...] Magnesium Ord90 Mag 2.0 mg/dL 11/16/2015 %Hba1C Obw036 % HbA1c 66621-7 6.5 % 11/16/2015 %Hba1C Jeo575 Gluc Ave 140 mg/dL 11/16/2015 Comp Metabolic Bmm933 NA 139 mEq/L 11/16/2015 Comp Metabolic Yzk276 K 3.5 mEq/L 11/16/2015 Comp Metabolic Buy799 CL 101 mEq/L 11/16/2015 Comp Metabolic Iyn673 CO2 32.0 mEq/L 11/16/2015 Comp Metabolic Erb990 ANION GAP 10 11/16/2015 Comp Metabolic Mrq706 GLUCOSE 100 mg/dL 11/16/2015 Comp Metabolic Vwz454 Creat 0.7 mg/dL 11/16/2015 Comp Metabolic Jye837 eGFR 81 ml/min/1.73m2 11/16/2015 Comp Metabolic Lgp322 BUN 12 mg/dL 11/16/2015 Comp Metabolic Nan246 B/C Ratio 16.2 Ratio 11/16/2015 Comp Metabolic Vfn572 CALCIUM 9.1 mg/dL 11/16/2015 Comp Metabolic Fct222 ALK PHOS 52 U/L 11/16/2015 Comp Metabolic Hht603 AST(SGOT) 22 U/L 11/16/2015 Comp Metabolic Tkx948 ALT(SGPT) 27 U/L 11/16/2015 Comp Metabolic Gqi621 BILI T 0.9 mg/dL 11/16/2015 Comp Metabolic Klw278 ALBUMIN 3.6 g/dL 11/16/2015 Comp Metabolic Myy056 TPRO 6.0 g/dL 11/16/2015 Comp Metabolic Czb828 GLOB 2.4 g/dL 11/16/2015 Comp Metabolic Sni607 A/G Ratio 1.5 Ratio 11/16/2015 Comp Metabolic Sfl966 Osmo 277 mOsmo 11/16/2015 Lipid Ord30 CHOL 227 mg/dL 08/02/2015 Lipid Ord30 HDL 41.0 mg/dl 08/02/2015 Lipid Ord30 TRIG 281 mg/dL 08/02/2015 Lipid Ord30 LDL 130 mg/dL 08/02/2015 Lipid Ord30 C/HDL 5.5 Ratio 08/02/2015 %Hba1C Tji547 % HbA1c 37292-4 6.9 % 08/02/2015 %Hba1C Gta429 Gluc Ave 151 mg/dL 08/02/2015 Cbc With [...] 31.6 pg 08/02/2015 Cbc With Differential Ord2 [place]% 10.1 % 08/02/2015 Cbc With Differential Ord2 [...] 1.61 K/ul 08/02/2015 Cbc With Differential Ord2 [place] ABS# 0.6 K/ul 08/02/2015 Cbc With Differential Ord2 Eos ABS# 0.4 K/ul 08/02/2015 Cbc With Differential Ord2 Baso ABS# 0.1 K/ul 08/02/2015 Cbc With Differential Ord2 New Analyzer Notice Please note new ref ranges starting 06-27-2015 due to implemntation of new five part differential hematolgy analyzer. 08/02/2015 Comp Metabolic Ziv106 NA 140 mEq/L 08/02/2015 Comp Metabolic Gee312 K 3.6 mEq/L 08/02/2015 Comp Metabolic Qij347 CL 101 mEq/L 08/02/2015 Comp Metabolic Ipa806 CO2 30.0 mEq/L 08/02/2015 Comp Metabolic Iep205 ANION GAP 13 08/02/2015 Comp Metabolic Qff086 GLUCOSE 139 mg/dL 08/02/2015 Comp Metabolic Gqf992 Creat 0.8 mg/dL 08/02/2015 Comp Metabolic Qbt402 eGFR 80 ml/min/1.73m2 08/02/2015 Comp Metabolic Fwv963 BUN 13 mg/dL 08/02/2015 Comp Metabolic Sqq383 B/C Ratio 17.3 Ratio 08/02/2015 Comp Metabolic Wgq276 CALCIUM 9.3 mg/dL 08/02/2015 Comp Metabolic Nxe805 ALK PHOS 54 U/L 08/02/2015 Comp Metabolic Qfk954 AST(SGOT) 27 U/L 08/02/2015 Comp Metabolic Upf280 ALT(SGPT) 32 U/L 08/02/2015 Comp Metabolic Dco247 BILI T 0.7 mg/dL 08/02/2015 Comp Metabolic Eae018 ALBUMIN 3.7 g/dL 08/02/2015 Comp Metabolic Nds759 TPRO 5.9 g/dL 08/02/2015 Comp Metabolic Fgj859 GLOB 2.2 g/dL 08/02/2015 Comp Metabolic Oas443 A/G Ratio 1.7 Ratio 08/02/2015 Comp Metabolic Ofm422 Osmo 282 mOsmo 08/02/2015 Tsh Ord6 hTSH [...] Procedure Codes Date THER/PROPH/DIAG INJ SC/IM CPT-4: 71146 08/13/2016 TRIAMCINOLONE ACET INJ NOS CPT-4: J3301 08/13/2016 ADMIN INFLUENZA VIRUS VAC CPT-4: G0008 02/28/2016 FLU VACC PRSV FREE INC ANTIG CPT-4: 42222 02/28/2016 TRIAMCINOLONE ACET INJ NOS CPT-4: J3301 01/28/2016 URINALYSIS NONAUTO W/O SCOPE CPT-4: 50758 11/06/2015 ROCEPHIN, PER 250 MG CPT-4: J0696 08/02/2015 TRIAMCINOLONE ACET INJ NOS CPT-4: J3301 08/02/2015 ADMIN INFLUENZA VIRUS VAC CPT-4: G0008 04/27/2015 FLU VACC PRSV FREE INC ANTIG Formatting Model/CDA Sections, Assigned to CPT-4: 12999Jcyjvtv 04/27/2015 TRIAMCINOLONE ACET INJ NOS CPT-4: J3301 [...] Code : 8480-6 BMI: 37.0 Code : 37050-8 Heart Rate 1 : 60 bpm Height: [...] data Encounters Encounter Performer Location Codes Date ([id number]) [id number] EST. PATIENT, LEVEL IV Diagnosis: Essential (primary) hypertension[ICD10: I10] Diagnosis: Type 2 diabetes mellitus with hyperglycemia[ICD10: E11.65] Diagnosis: Other allergic rhinitis[ICD10: J30.89] Shanthi Clay MD, [facility] CPT-4: 16439 12/25/2016 ([id number]) [id number] EST. PATIENT, LEVEL IV Diagnosis: Type 2 diabetes mellitus with hyperglycemia[ICD10: E11.65] Diagnosis: Essential (primary) hypertension[ICD10: I10] Diagnosis: Mixed hyperlipidemia[ICD10: E78.2] Shanthi Clay MD, [facility] CPT-4: 15229 09/02/2016 ([id number]) [id number] EST. PATIENT, LEVEL IV Diagnosis: Essential (primary) hypertension[ICD10: I10] Shanthi Clay MD, [facility] CPT-4: 94300 08/13/2016 ([id number]) [id number] EST. PATIENT, LEVEL IV Diagnosis: Essential (primary) hypertension[ICD10: I10] Diagnosis: Cough[ICD10: R05] Diagnosis: Type 2 diabetes mellitus with hyperglycemia[ICD10: E11.65] Shanthi Clay MD , [facility] CPT-4: 82793 07/14/2016 ([id number]) Miscellaneous no charge Diagnosis: Cough[ICD10: R05] Katelynn Clay MD, [facility] CPT-4: 47768 06/25/2016 [id number] EST. PATIENT, LEVEL III Diagnosis: Acute laryngopharyngitis[ICD10: J06.0] Diagnosis: Other allergic rhinitis[ICD10: J30.89] Diagnosis: Cough[ICD10: R05] Katelynn Clay MD, [facility] CPT-4: 13333 06/18/2016 [id number] EST. PATIENT, LEVEL III Diagnosis: Other allergic rhinitis[ICD10: J30.89] Diagnosis: Acute nasopharyngitis [common cold][ICD10: J00] Katelynn Clay MD, [facility] CPT-4: 76537 05/07/2016 ([id number]) [id number] EST. PATIENT, LEVEL IV Diagnosis: Spontaneous ecchymoses[ICD10: R23.3] Diagnosis: Type 2 diabetes mellitus with hyperglycemia[ICD10: E11.65] Diagnosis: Essential (primary) hypertension[ICD10: I10] Diagnosis: Encounter for immunization[ICD10: Z23] Shanthi Clay MD, [facility] CPT-4: 63652 02/28/2016 [id number] EST. PATIENT, LEVEL V Diagnosis: Acute recurrent maxillary sinusitis[ICD10: J01.01] Diagnosis: Other allergic rhinitis[ICD10: J30.89] Diagnosis: Cough[ICD10: R05] Katelynn Clay MD, [facility] CPT-4: 86580 01/28/2016 ([id number]) [id number] EST. PATIENT, LEVEL IV Diagnosis: Essential (primary) hypertension[ICD10: I10] Diagnosis: Type 2 diabetes mellitus with hyperglycemia[ICD10: E11.65] Diagnosis: Mixed hyperlipidemia[ICD10: E78.2] Shanthi Clay MD, [facility] CPT-4: 06892 11/15/2015 69138 EST. PATIENT, LEVEL IV Diagnosis: Acute recurrent maxillary sinusitis[ICD10: J01.01] Diagnosis: Cough[ICD10: R05] Diagnosis: Type 2 diabetes mellitus with hyperglycemia[ICD10: E11.65] Diagnosis: Essential (primary) hypertension[ICD10: I10] Katelynn Clay MD, [facility] CPT-4: 96366 08/02/2015 ([id number]) 04083 EST. PATIENT, LEVEL IV Diagnosis: Essential (primary) hypertension[ICD10: I10] Diagnosis: Type 2 diabetes mellitus with hyperglycemia[ICD10: E11.65] Diagnosis: Acute maxillary sinusitis, unspecified[ICD10: J01.00] Shanthi Clay MD, [facility] CPT-4: 52913 07/17/2015 ([id number]) 86380 EST. PATIENT, LEVEL IV Diagnosis: Acute bronchitis, unspecified[ICD10: J20.9] Diagnosis: Cough[ICD10: R05] Diagnosis: Type 2 diabetes mellitus with hyperglycemia[ICD10: E11.65] Diagnosis: Essential (primary) hypertension[ICD10: I10] Shanthi Clay MD, [facility] CPT-4: 97578 04/19/2015 13709 EST. PATIENT, LEVEL III Diagnosis: Acute bronchitis, unspecified[ICD10: J20.9] Diagnosis: Type 2 diabetes mellitus with hyperglycemia[ICD10: E11.65] Diagnosis: Essential (primary) hypertension[ICD10: I10] Katelynn Clay MD, [facility] CPT-4: 26729 04/10/2015 ([id number]) OFFICE VISIT, NEW - LEVEL 4 Diagnosis: DIABETES TYPE II[ICD9: 250.00] Diagnosis: ESSENTIAL HYPERTENSION[ICD9: 401.9] Diagnosis: Peripheral neuropathy[ICD9: 356.9] Shanthi Clay MD, [facility] CPT-4: 57872 12/21/2014 Plan of Care Planned Activity Notes Codes Status Date Appointment: Shanthi Clay WPtel: [address] [place], [place] [id number] (30 min) Complex 04/30/2017 Appointment: Katelynn Juan WPtel: [facility] [place] (30 min) Complex 02/04/2017 Visit Plan: [...] images today. 12/25/2016 Appointment: [facility] Clay [facility] [place] ([facility]) Moderate 12/25/2016 Patient Education: Patient Medication Summary Completed 12/25/2016 App[facility]ment: [phone] [facility] ([facility] min) Moderate 12/02/2016 Visit Plan: Diabetes [...] medications. 09/02/2016 App[facility]ment: [phone] [facility] ([facility]) Moderate 09/02/2016 Patient Education: Patient [...] oxygen level 08/13/2016 App[facility]ment: [phone] [facility] ([facility] [place]) Moderate 08/13/2016 Patient Education: Patient [...] Summary Completed 07/14/2016 Appointment: Shanthi Clay WPtel: [facility] [place] ([facility] min) Moderate 06/26/2016 Appointment: Nurse Visit 06/25/2016 Patient Education: Patient Medication Summary Completed 06/25/2016 Appointment: Katelynn Juan WPtel: [address] [place], [place] [address] (30 min) Complex 06/24/2016 Visit Plan: URI [...] allergy spray. 06/18/2016 Appointment: Katelynn Juan WPtel: [facility] [place] (30 min) Complex 06/18/2016 Patient Education: Patient [...] allergy spray. 05/07/2016 Appointment: Yoly Cuevas WPtel: [phone] [phone] (15 min) Moderate 05/07/2016 Patient Education: Patient [...] platelets 02/28/2016 Appointment: Shanthi Clay WPtel: [phone] [facility] [place] (15 min) Moderate 02/28/2016 Patient Education: [...] improvement. 01/28/2016 Appointment: Katelynn Juan WPtel: [phone] [facility] (10 min) Simple 01/28/2016 Patient Education: Patient [...] Pending 11/06/2015 Appointment: [phone] [facility] ([facility]) Moderate 10/18/2015 Visit Plan: Allergies [...] pharmacy. 07/17/2015 Appointment: Shanthi Clay WPtel: [address] [place], [place] [id number] (15 min) Moderate 07/17/2015 Patient Education: Patient Medication Summary Completed 07/17/2015 Patient Education: Hypertension Completed 07/17/2015 Appointment: Shanthi Clay WPtel: [phone] [facility] (15 min) Moderate 07/16/2015 Appointment: Shanthi Clay WPtel: [facility] [place] (15 min) Moderate 06/13/2015 Appointment: Injection 04/27/2015 [...] acutely worsen. 04/19/2015 Appointment: Shanthi Clay WPtel: [facility] [place] (15 min) Moderate 04/19/2015 Patient [...] Hypertension Completed 04/10/2015 Appointment: Shanthi Clay WPtel: [facility] [place] (15 min) Moderate 03/15/2015 Visit Plan: Hypertension [...] not improved. 12/21/2014 Appointment: Shanthi Clay WPtel: [facility] [place] [place] ([place] New Patient 12/21/2014 Patient Education: [...] become less controlled. start on a probiotic ([employer] or SaySwap) three times daily while taking the antibiotics. [...]
--- OUTSIDE RECORDS SUMMARY | 2017-08-07 08:31 | XMS REPORT | Continuity of Care Document ---
Author Author [facility] Organization [facility] Address Unknown Phone Unavailable Allergies Active Description Code Type Severity Reaction Onset Reported/Identified Relationship to Patient Clinical Status Yes erythromycin base [id number] Drug Allergy Unknown SICK TO HER STO 2006 Yes morphine [id number] Drug Allergy Unknown UNKNOWN 10/27/2006 Yes propoxyphene [id number] Drug Allergy Unknown UNKNOWN 10/27/2006 Yes Sulfa (Sulfonamide Antibiotics) [id number] Drug Allergy Unknown HIVES, SOB 10/27/2006 Medications There is no data. Problems Date Dx Coded Attending Type Code Diagnosis Diagnosed By 04/04/2011 Ot 327.23 OBSTRUCTIVE SLEEP APNEA (ADULT) (PEDIATR 04/04/2011 Ot 427.31 ATRIAL FIBRILLATION 06/02/2011 Ot 785.1 PALPITATIONS 06/02/2011 Ot 786.50 CHEST PAIN NOS 06/02/2011 Ot V58.67 LONG-TERM ( CURRENT) USE OF INSULIN 06/02/2011 Ot V58.69 OTH MED,LT, CURRENT USE 04/17/2012 Ot 250.02 DIAB ALLEN WO COMPL, TYPE II OR UNSPEC TY 04/17/2012 Ot 272.4 HYPERLIPIDEMIA NEC/NOS 04/17/2012 Ot 401.9 HYPERTENSION NOS 04/17/2012 Ot 465.9 ACUTE URI NOS 04/17/2012 Ot 493.92 ASTHMA, UNSPECIFIED, W (ACUTE) EXACERBAT 04/17/2012 Ot 780.57 UNSPECIFIED SLEEP APNEA 04/17/2012 Ot 786.1 STRIDOR 04/17/2012 Ot E932.0 ADV EFF CORTICOSTEROIDS 12/11/2013 BOBY BARRETT MD Ot 250.00 DIAB ALLEN WO COMPL, TYPE II OR UNSPEC TY 12/11/2013 BOBY BARRETT MD Ot 722.10 LUMBAR DISC DISPLACEMENT 12/11/2013 BOBY BARRETT MD Ot 729.5 PAIN IN LIMB 12/11/2013 BOBY BARRETT MD Ot 733.90 BONE CARTILAGE DIS NOS 12/11/2013 BOBY BARRETT MD Ot V58.67 LONG-TERM (CURRENT) USE OF INSULIN 02/27/2014 GALE GREGORY MD Ot 278.00 OBESITY, NOS 02/27/2014 GALE GREGORY MD Ot 721.3 LUMBOSACRAL SPONDYLOSIS 02/27/2014 GALE GREGORY MD Ot 722.83 POSTLAMINECT SYND-LUMBAR 02/27/2014 GALE GREGORY MD Ot 723.1 CERVICALGIA 02/27/2014 GALE GREGORY MD Ot 724.6 DISORDERS OF SACRUM 02/27/2014 GALE GREGORY MD Ot V58.69 OTH MED,LT,CURRENT USE 02/27/2014 GALE GREGORY MD Ot V85.34 BODY MASS INDEX 34.0-34.9, ADULT 05/10/2014 BASIM MASSEY MD Ot 272.4 05/10/2014 BASIM MASSEY MD Ot 397.0 05/10/2014 BASIM MASSEY MD Ot 401.9 05/10/2014 BASIM MASSEY MD Ot 424.0 05/10/2014 BASIM MASSEY MD Ot 427.69 06/05/2014 BASIM MASSEY MD Ot 272.4 06/05/2014 BASIM MASSEY MD Ot 278.00 06/05/2014 BASIM MASSEY MD Ot 401.9 06/05/2014 BASIM MASSEY MD Ot 427.69 06/05/2014 BASIM MASSEY MD Ot V85.33 07/13/2014 BOBY BARRETT MD Ot 787.91 07/20/2014 ASHLEY PAGAN MD Ot 722.4 08/07/2014 Ot 786.07 08/07/2014 Ot 786.2 08/08/2014 Ot 786.07 08/08/2014 Ot 786.2 08/09/2014 Ot 786.07 08/09/2014 Ot 786.2 09/03/2014 BOBY ABRRETT MD Ot 787.91 DIARRHEA 09/15/2014 BOBY BARRETT MD Ot 724.02 09/15/2014 BOYB BARRETT MD Ot 724.2 09/15/2014 BOBY BARRETT MD Ot 724.4 09/15/2014 BOBY BARRETT MD Ot 756.12 09/15/2014 BOBY BARRETT MD Ot V45.4 09/22/2014 GALE GREGORY MD Ot 278.00 OBESITY, NOS 09/22/2014 GALE GREGORY MD Ot 721.3 LUMBOSACRAL SPONDYLOSIS 09/22/2014 GALE GREGORY MD Ot 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 DISC DEGEN 09/22/2014 GALE GREGORY MD Ot 722.83 POSTLAMINECT SYND-LUMBAR 09/22/2014 GALE GREGORY MD Ot 724.6 DISORDERS OF SACRUM 09/22/2014 GALE GREGORY MD, Ot V58.69 OT MED,LT,CURRENT USE 09/22/2014 GALE GREGORY MD Ot V85.37 BODY MASS INDEX 37.0-37.9, ADULT 10/11/2014 Ot 786.07 10/11/2014 Ot 786.2 11/15/2014 GALE GREGORY MD Ot 721.3 11/15/2014 GALE GREGORY MD Ot 722.83 11/15/2014 GALE GREGORY MD Ot V58.69 11/20/2014 BASIM MASSEY MD Ot 272.4 11/20/2014 BASIM MASSEY MD Ot 278.00 11/20/2014 BASIM MASSEY MD Ot 401.9 11/20/2014 BASIM MASSEY MD Ot 427.69 11/20/2014 BASIM MASSEY MD Ot V85.33 11/24/2014 GALE GREGORY MD Ot 721.3 11/24/2014 GALE GREGORY MD Ot 722.83 11/24/2014 GALE GREGORY MD Ot 724.6 11/24/2014 GALE GREGORY MD Ot V58.69 12/06/2014 GALE GREGORY MD Ot 721.3 12/06/2014 GALE GREGORY MD Ot 722.83 12/06/2014 GALE GREGORY MD Ot V58.69 12/11/2014 GALE GREGORY MD Ot 721.3 12/11/2014 GALE GREGORY MD Ot 722.83 12/11/2014 GALE GREGORY MD Ot 724.6 12/11/2014 GALE GREGORY MD Ot V58.69 12/18/2014 GALE GREGORY MD Ot 721.3 12/18/2014 GALE GREGORY MD Ot 722.83 12/18/2014 GALE GREGORY MD Ot V58.69 05/14/2015 Ot 785.1 05/14/2015 Ot 786.50 05/14/2015 Ot V58.67 05/14/2015 Ot V58.69 05/14/2015 HILTON PRETTY, STAN Vazquez Ot 455.0 05/14/2015 STAN CANELA MD Ot V76.51 05/14/2015 HILTON PRETTY, STAN Vazquez Ot V72.84 05/14/2015 ARNOLD PRETTY, BOBY M Ot 625.9 05/14/2015 ARNOLD PRETTY, BOBY M Ot 722.52 05/14/2015 ARNOLD PRETTY, BOBY M Ot 726.91 05/14/2015 ARNOLD PRETTY, BOBY M Ot 733.90 05/14/2015 ARNOLD PRETTY, BOBY M Ot 793.7 05/14/2015 ARNOLD PRETTY, BOBY M Ot V45.4 05/14/2015 ARNOLD PRETTY, BOBY M Ot 724.02 05/14/2015 ARNOLD PRETTY, BOBY M Ot 724.2 05/14/2015 ARNOLD PRETTY, BOBY M Ot 724.4 05/14/2015 ARNOLD PRETTY, BOBY M Ot 756.12 05/14/2015 ARNOLD PRETTY, BOBY M Ot V45.4 05/14/2015 ARNOLD PRETTY, BOBY M Ot 724.5 05/14/2015 ARNOLD PRETTY, BOBY M Ot 733.90 05/14/2015 GALE GREGORY MD Ot 722.52 05/14/2015 GALE GREGORY MD Ot V58.69 05/14/2015 GALE GREGORY MD Ot 278.00 05/14/2015 GALE GREGORY MD Ot 721.3 05/14/2015 GALE GREGORY MD Ot 722.52 05/14/2015 GALE GREGORY MD Ot 722.83 05/14/2015 GALE GREGORY MD Ot V58.69 05/14/2015 GALE GREGORY MD Ot V85.35 05/14/2015 LATASHA PRETTY, ASHLEY Pedraza Ot 722.4 05/14/2015 BRYSON PRETTY, BASIM Pedraza Ot 272.4 05/14/2015 BRYSON PRETTY, BASIM J Ot 397.0 05/14/2015 BRYSON PRETTY, BASIM J Ot 401.9 05/14/2015 BRYSON PRETTY, BASIM J Ot 424.0 05/14/2015 BRYSON PRETTY, BASIM J Ot 427.69 05/14/2015 BRYSON PRETTY, BASIM J Ot 272.4 05/14/2015 BRYSON PRETTY, BASIM Pedraza Ot 278.00 05/14/2015 BRYSON PRETTY, BASIM Pedraza Ot 401.9 05/14/2015 BRYSON PRETTY, BASIM Pedraza Ot 427.69 05/14/2015 BRYSON PRETTY, BASIM Pedraza Ot V85.33 05/14/2015 Ot 786.07 05/14/2015 Ot 786.2 05/14/2015 ARNOLD PRETTY, BOBY Austin Ot 787.91 05/14/2015 GALE GREGORY MD Ot 721.3 05/14/2015 GALE GREGORY MD Ot 722.83 05/14/2015 GALE GREGORY MD Ot 724.6 05/14/2015 GALE GREGORY MD Ot V58.69 05/14/2015 GALE GREGORY MD Ot 721.3 05/14/2015 GALE GREGORY MD Ot 722.83 05/14/2015 GALE GREGORY MD Ot V58.69 05/14/2015 BONITA NEGRON APRN Ot I70.0 ATHEROSCLEROSIS OF [place] 05/14/2015 BONITA NEGRON APRN Ot K42.9 UMBILICAL HERNIA WITHOUT OBSTRUCTION OR 05/14/2015 BONITA NEGRON APRN Ot K76.0 FATTY (CHANGE OF) LIVER, NOT ELSEWHERE C 05/14/2015 BONITA NEGRON APRN Ot N39.0 URINARY TRACT INFECTION, SITE NOT SPECIF 05/14/2015 BONITA NEGRON APRN Ot R11.2 NAUSEA WITH VOMITING, UNSPECIFIED 05/14/2015 BONITA NEGRON APRN Ot Z98.1 ARTHRODESIS STATUS 06/18/2015 Ot 785.1 06/18/2015 Ot 786.50 06/18/2015 Ot V58.67 06/18/2015 Ot V58.69 06/18/2015 HILTON PRETTY, STAN Vazquez Ot 455.0 06/18/2015 HILTON PRETTY, STAN Vazquez Ot V76.51 06/18/2015 HILTON PRETTY, STAN Vazquez Ot V72.84 06/18/2015 ARNOLD PRETTY, BOBY M Ot 625.9 06/18/2015 ARNOLD PRETTY, BOBY M Ot 722.52 06/18/2015 ARNOLD PRETTY, BOBY M Ot 726.91 06/18/2015 ARNOLD PRETTY, BOBY M Ot 733.90 06/18/2015 ARNOLD PRETTY, BOBY M Ot 793.7 06/18/2015 ARNOLD PRETTY, BOBY M Ot V45.4 06/18/2015 ARNOLD PRETTY, BOBY M Ot 724.02 06/18/2015 ARNOLD PRETTY, BOBY M Ot 724.2 06/18/2015 ARNOLD PRETTY, BOBY M Ot 724.4 06/18/2015 ARNOLD PRETTY, BOBY M Ot 756.12 06/18/2015 ARNOLD PRETTY, BOBY M Ot V45.4 06/18/2015 ARNOLD PRETTY, BOBY M Ot 724.5 06/18/2015 ARNOLD PRETTY, BOBY M Ot 733.90 06/18/2015 BRI PRETTY, GALE Pedraza Ot 722.52 06/18/2015 BRI PRETTY, GALE Pedraza Ot V58.69 06/18/2015 BRI PRETTY, GALE Pedraza Ot 278.00 06/18/2015 GALE GREGORY MD Ot 721.3 06/18/2015 GALE GREGORY MD Ot 722.52 06/18/2015 GALE GREGORY MD Ot 722.83 06/18/2015 BRI PRETTY, GALE Pedraza Ot V58.69 06/18/2015 BRI PRETTY, GALE Pedraza Ot V85.35 06/18/2015 ASHLEY PAGAN MD Ot 722.4 06/18/2015 BASIM MASSEY MD Ot 272.4 06/18/2015 BRYSON PRETTY, BASIM Pedraza Ot 397.0 06/18/2015 BRYSON PRETTY, BASIM Pedraza Ot 401.9 06/18/2015 BASIM MASSEY MD Ot 424.0 06/18/2015 BASIM MASSEY MD Ot 427.69 06/18/2015 BRYSON PRETTY, BASIM Pedraza Ot 272.4 06/18/2015 BASIM MASSEY MD Ot 278.00 06/18/2015 BRYSON PRETTY, BASIM Pedraza Ot 401.9 06/18/2015 BASIM MASSEY MD Ot 427.69 06/18/2015 BASIM MASSEY MD Ot V85.33 06/18/2015 Ot 786.07 06/18/2015 Ot 786.2 06/18/2015 ARNOLD PRETTY, BOBY Austin Ot 787.91 06/18/2015 AGLE GREGORY MD Ot 721.3 06/18/2015 GALE GREGORY MD Ot 722.83 06/18/2015 GALE GREGORY MD Ot 724.6 06/18/2015 GALE GREGORY MD Ot V58.69 06/18/2015 GALE GREGORY MD Ot 721.3 06/18/2015 GALE GREGORY MD Ot 722.83 06/18/2015 GALE GREGORY MD Ot V58.69 02/01/2016 GALE GREGORY MD, Ot G89.4 CHRONIC PAIN SYNDROME 02/01/2016 GALE GREGORY MD, Ot M47.814 SPONDYLOSIS W/O MYELOPATHY OR RADICULOPA 02/01/2016 GALE GREGORY MD, Ot M51.16 INTERVERTEBRAL DISC DISORDERS W RADICULO 02/01/2016 GALE GREGORY MD, Ot Z79.899 OTHER NURSING HOME (CURRENT) DRUG THERAPY 02/11/2016 GALE GREGORY MD, Ot G89.4 CHRONIC PAIN SYNDROME 02/11/2016 GALE GREGORY MD, Ot M47.814 SPONDYLOSIS W/O MYELOPATHY OR RADICULOPA 02/11/2016 GALE GREGORY MD, Ot M51.16 INTERVERTEBRAL DISC DISORDERS W RADICULO 02/11/2016 GALE GREGORY MD, Ot Z79.899 OTHER MANUFACTURING STOREPERSON (CURRENT) DRUG THERAPY 02/13/2016 GALE GREGORY MD, Ot G89.4 CHRONIC PAIN SYNDROME 02/13/2016 GALE GREGORY MD, Ot M47.814 SPONDYLOSIS W/O MYELOPATHY OR RADICULOPA 02/13/2016 GALE GREGORY MD, Ot M51.16 INTERVERTEBRAL DISC DISORDERS W RADICULO 02/13/2016 GALE GREGORY MD Ot Z79.899 OTHER MANUFACTURING STOREPERSON (CURRENT) DRUG THERAPY 02/15/2016 GALE GREGORY MD Ot G89.4 CHRONIC PAIN SYNDROME 02/15/2016 GALE GREGORY MD Ot M47.814 SPONDYLOSIS W/O MYELOPATHY OR RADICULOPA 02/15/2016 GALE GREGORY MD, Ot M47.816 SPONDYLOSIS W/O MYELOPATHY OR RADICULOPA 02/15/2016 GALE GREGORY MD, Ot M53.3 SACROCOCCYGEAL DISORDERS, NOT ELSEWHERE 02/15/2016 GALE GREGORY MD Ot Z79.899 OTHER MANUFACTURING STOREPERSON (CURRENT) DRUG THERAPY 02/28/2016 GALE GREGORY MD Ot G89.4 CHRONIC PAIN SYNDROME 02/28/2016 GALE GREGORY MD, Ot M47.814 SPONDYLOSIS W/O MYELOPATHY OR RADICULOPA 02/28/2016 GALE GREGORY MD, Ot M47.816 SPONDYLOSIS W/O MYELOPATHY OR RADICULOPA 02/28/2016 GALE GREGORY MD, Ot M53.3 SACROCOCCYGEAL DISORDERS, NOT ELSEWHERE 02/28/2016 GALE GREGORY MD Ot Z79.899 OTHER MANUFACTURING STOREPERSON (CURRENT) DRUG THERAPY 05/22/2016 Ot 785.1 PALPITATIONS 05/22/2016 Ot 786.50 CHEST PAIN NOS 05/22/2016 Ot V58.67 LONG-TERM ( CURRENT) USE OF INSULIN 05/22/2016 Ot V58.69 OTH MED,LT, CURRENT USE 05/22/2016 STAN CANELA MD Ot 455.0 INT HEMORRHOID W/O COMPL 05/22/2016 STAN CANELA MD Ot V76.51 SCREEN MAL NEOP-COLON 05/22/2016 STAN CANELA MD Ot V72.84 EXAM PRE-OPERATIVE NOS 05/22/2016 BOBY BARRETT MD Ot 625.9 FEM GENITAL SYMPTOMS NOS 05/22/2016 BOBY BARRETT MD Ot 722.52 LUMB/LUMBOSAC DISC DEGEN 05/22/2016 BOBY BARRETT MD Ot 726.91 EXOSTOSIS, SITE NOS 05/22/2016 BOBY BARRETT MD Ot 733.90 BONE CARTILAGE DIS NOS 05/22/2016 BOBY BARRETT MD Ot 793.7 NOSP (ABN) FINDINGS ON RADIOLOGICAL OT 05/22/2016 BOBY BARRETT MD Ot V45.4 ARTHRODESIS STATUS 05/22/2016 BOBY BARRETT MD Ot 724.02 SPINAL STENOSIS, LUMBAR REG, W/OUT NEURO 05/22/2016 BOBY BARRETT MD Ot 724.2 LUMBAGO 05/22/2016 BOBY BARRETT MD Ot 724.4 LUMBOSACRAL NEURITIS NOS 05/22/2016 BOBY BARRETT MD Ot 756.12 SPONDYLOLISTHESIS 05/22/2016 BOBY BARRETT MD, Ot V45.4 ARTHRODESIS STATUS 05/22/2016 BOBY BARRETT MD Ot 724.5 BACKACHE NOS 05/22/2016 BOBY BARRETT MD Ot 733.90 BONE CARTILAGE DIS NOS 05/22/2016 GALE GREGORY MD Ot 722.52 LUMB/LUMBOSAC DISC DEGEN 05/22/2016 GALE GREGORY MD Ot V58.69 OTH MED,LT,CURRENT USE 05/22/2016 GALE GREGORY MD Ot 278.00 OBESITY, NOS 05/22/2016 GALE GREGORY MD Ot 721.3 LUMBOSACRAL SPONDYLOSIS 05/22/2016 GALE GREGORY MD Ot 722.52 LUMB/LUMBOSAC DISC DEGEN 05/22/2016 GALE GREGORY MD Ot 722.83 POSTLAMINECT SYND-LUMBAR 05/22/2016 GALE GREGORY MD Ot V58.69 OTH MED,LT,CURRENT USE 05/22/2016 GALE GREGORY MD Ot V85.35 BODY MASS INDEX 35.0-35.9, ADULT 05/22/2016 ASHLEY PAGAN MD Ot 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 DISC DEGEN 05/22/2016 BASIM MASSEY MD Ot 272.4 HYPERLIPIDEMIA NEC/NOS 05/22/2016 BASIM MASSEY MD Ot 397.0 TRICUSPID VALVE DISEASE 05/22/2016 BASIM MASSEY MD Ot 401.9 HYPERTENSION NOS 05/22/2016 BASIM MASSEY MD Ot 424.0 MITRAL VALVE DISORDER 05/22/2016 BASIM MASSEY MD Ot 427.69 PREMATURE BEATS NEC 05/22/2016 BASIM MASSEY MD Ot 272.4 HYPERLIPIDEMIA NEC/NOS 05/22/2016 BASIM MASSEY MD Ot 278.00 OBESITY, NOS 05/22/2016 BASIM MASSEY MD Ot 401.9 HYPERTENSION NOS 05/22/2016 BASIM MASSEY MD Ot 427.69 PREMATURE BEATS NEC 05/22/2016 BASIM MASSEY MD Ot V85.33 BODY MASS INDEX 33.0-33.9, ADULT 05/22/2016 Ot 786.07 WHEEZING 05/22/2016 Ot 786.2 COUGH 05/22/2016 ARNOLD PRETTY, BOBY Austin Ot 787.91 DIARRHEA 05/22/2016 GALE GREGORY MD Ot 721.3 LUMBOSACRAL SPONDYLOSIS 05/22/2016 GALE GREGORY MD Ot 722.83 POSTLAMINECT SYND-LUMBAR 05/22/2016 GALE GREGORY MD Ot 724.6 DISORDERS OF SACRUM 05/22/2016 GALE GREGORY MD Ot V58.69 OTH MED,LT,CURRENT USE 05/22/2016 GALE GREGORY MD Ot 721.3 LUMBOSACRAL SPONDYLOSIS 05/22/2016 GALE GREGORY MD Ot 722.83 POSTLAMINECT SYND-LUMBAR 05/22/2016 GALE GREGORY MD Ot V58.69 OTH MED,LT,CURRENT USE 05/22/2016 GALE GREGORY MD Ot M54.6 PAIN IN THORACIC SPINE 05/29/2016 BASIM MASSEY MD Ot R07.89 OTHER CHEST PAIN 06/19/2016 JOSE RAUL SILVESTRE CONSERVATION AGENT Ot R05 COUGH 06/19/2016 JOSE RAUL SILVESTRE CONSERVATION AGENT Ot R06.02 SHORTNESS OF BREATH 06/23/2016 BASIM MASSEY MD Ot R07.89 OTHER CHEST PAIN 06/30/2016 BASIM MASSEY MD Ot R07.89 OTHER CHEST PAIN 2016 JOSE RAUL SILVESTRE CONSERVATION AGENT Ot R05 COUGH 2016 JOSE RAUL SILVESTRE CONSERVATION AGENT Ot R06.02 SHORTNESS OF BREATH 07/23/2016 BASIM MASSEY MD Ot E11.9 TYPE 2 DIABETES MELLITUS WITHOUT COMPLIC 07/23/2016 BASIM MASSEY MD Ot E78.5 HYPERLIPIDEMIA, UNSPECIFIED 07/23/2016 BASIM MASSEY MD Ot I10 ESSENTIAL (PRIMARY) HYPERTENSION 07/23/2016 BASIM MASSEY MD Ot I25.10 ATHSCL HEART DISEASE OF [place] CORONARY 07/23/2016 BASIM MASSEY MD Ot 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[place] 07/23/2016 BASIM MASSEY MD Ot 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 [place] 07/23/2016 BASIM MASSEY MD Ot I70.0 ATHEROSCLEROSIS OF [place] 07/23/2016 BASIM MASSEY MD Ot R94.39 ABNORMAL RESULT OF OTHER CARDIOVASCULAR 07/23/2016 BASIM MASSEY MD Ot Z79.4 NURSING HOME (CURRENT) USE OF INSULIN 07/23/2016 BASIM MASSEY MD Ot Z79.899 OTHER NURSING HOME (CURRENT) DRUG THERAPY 07/29/2016 BASIM MASSEY MD Ot E11.9 TYPE 2 DIABETES MELLITUS WITHOUT COMPLIC 07/29/2016 BASIM MASSEY MD Ot E78.5 HYPERLIPIDEMIA, UNSPECIFIED 07/29/2016 BASIM MASSEY MD Ot I10 ESSENTIAL (PRIMARY) HYPERTENSION 07/29/2016 BASIM MASSEY MD Ot I25.10 ATHSCL HEART DISEASE OF [place] CORONARY 07/29/2016 BASIM MASSEY MD Ot 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[place] 07/29/2016 BASIM MASSEY MD Ot 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 [place] 07/29/2016 BASIM MASSEY MD Ot I70.0 ATHEROSCLEROSIS OF [place] 07/29/2016 BASIM MASSEY MD Ot R94.39 ABNORMAL RESULT OF OTHER CARDIOVASCULAR 07/29/2016 BASIM MASSEY MD Ot Z79.4 NURSING HOME (CURRENT) USE OF INSULIN 07/29/2016 BASIM MASSEY MD Ot Z79.899 OTHER NURSING HOME (CURRENT) DRUG THERAPY 08/05/2016 JOSE RAUL SILVESTRE APRN Ot R05 COUGH 08/05/2016 JOSE RAUL SILVESTRE APRN Ot R06.02 SHORTNESS OF BREATH 08/05/2016 BASIM MASSEY MD Ot E78.2 MIXED HYPERLIPIDEMIA 08/05/2016 BASIM MASSEY MD Ot G89.4 CHRONIC PAIN SYNDROME 08/05/2016 BASIM MASSEY MD Ot I10 ESSENTIAL (PRIMARY) HYPERTENSION 08/05/2016 BASIM MASSEY MD Ot I49.3 VENTRICULAR PREMATURE DEPOLARIZATION 08/05/2016 BASIM MASSEY MD Ot M54.2 CERVICALGIA 08/05/2016 BASIM MASSEY MD Ot R00.2 PALPITATIONS 08/08/2016 BASIM MASSEY MD Ot E78.2 MIXED HYPERLIPIDEMIA 08/08/2016 BASIM MASSEY MD Ot G89.4 CHRONIC PAIN SYNDROME 08/08/2016 BASIM MASSEY MD Ot I10 ESSENTIAL (PRIMARY) HYPERTENSION 08/08/2016 BASIM MASSEY MD Ot I49.3 VENTRICULAR PREMATURE DEPOLARIZATION 08/08/2016 BASIM MASSEY MD Ot M54.2 CERVICALGIA 08/08/2016 BASIM MASSEY MD Ot R00.2 PALPITATIONS 08/13/2016 Ot 250.00 08/13/2016 Ot 401.9 08/13/2016 Ot 782.3 08/20/2016 BASIM MASSEY MD Ot E78.2 MIXED HYPERLIPIDEMIA 08/20/2016 BASIM MASSEY MD Ot G89.4 CHRONIC PAIN SYNDROME 08/20/2016 BASIM MASSEY MD Ot I10 ESSENTIAL (PRIMARY) HYPERTENSION 08/20/2016 BASIM MASSEY MD Ot I49.3 VENTRICULAR PREMATURE DEPOLARIZATION 08/20/2016 BASIM MASSEY MD Ot M54.2 CERVICALGIA 08/20/2016 BASIM MASSEY MD Ot R00.2 PALPITATIONS 09/13/2016 Ot 250.00 09/13/2016 Ot 401.9 09/13/2016 Ot 782.3 10/27/2016 GALE GREGORY MD Ot G89.4 CHRONIC PAIN SYNDROME 10/27/2016 GALE GREGORY MD Ot M47.816 SPONDYLOSIS W/O MYELOPATHY OR RADICULOPA 10/27/2016 GALE GREGORY MD Ot M53.3 SACROCOCCYGEAL DISORDERS, NOT ELSEWHERE 10/27/2016 GALE GREGORY MD Ot Z79.4 NURSING HOME (CURRENT) USE OF INSULIN 11/05/2016 GALE GREGORY MD Ot G89.4 CHRONIC PAIN SYNDROME 11/05/2016 GALE GREGORY MD, Ot M47.816 SPONDYLOSIS W/O MYELOPATHY OR RADICULOPA 11/05/2016 GALE GREGORY MD Ot M53.3 SACROCOCCYGEAL DISORDERS, NOT ELSEWHERE 11/05/2016 GALE GREGORY MD Ot Z79.4 MANUFACTURING STOREPERSON (CURRENT) USE OF INSULIN 11/13/2016 Ot 250.00 11/13/2016 Ot 401.9 11/13/2016 Ot 782.3 11/14/2016 RICCARDO ATKINSON APRN Ot J45.909 UNSPECIFIED ASTHMA, UNCOMPLICATED 11/14/2016 RICCARDO ATKINSON APRN Ot J45.909 UNSPECIFIED ASTHMA, UNCOMPLICATED 02/07/2017 RICCARDO ATKINSON APRN Ot J45.909 UNSPECIFIED ASTHMA, UNCOMPLICATED 02/27/2017 RICCARDO ATKINSON APRN Ot J45.909 UNSPECIFIED ASTHMA, UNCOMPLICATED Procedures There is no data. Results Test Result Range Automated blood complete blood count (hemogram) panel - 07/23/16 07:22 Blood leukocytes automated count (number/volume) 8.6 10*3/uL 4.3-11.0 Blood erythrocytes automated count (number/volume) 5.18 10*6/uL 4.35-5.85 Venous blood hemoglobin measurement (mass/volume) 16.2 g/dL 11.5-16.0 Blood hematocrit (volume fraction) 48 % 35-52 Automated erythrocyte mean corpuscular volume 92 [foz_us] 80-99 Automated erythrocyte mean corpuscular hemoglobin (mass per erythrocyte) 31 pg 25-34 Automated erythrocyte mean corpuscular hemoglobin concentration measurement ( mass/volume) 34 g/dL 32-36 Automated erythrocyte distribution width ratio 12.2 % 10.0-14.5 Automated blood platelet count (count/volume) 187 10*3/uL 130-400 Automated blood platelet mean volume measurement 10.7 [foz_us] 7.4-10.4 PT panel in platelet poor plasma by coagulation assay - 07/23/16 07:22 Prothrombin time (PT) in platelet poor plasma by coagulation assay 12.5 s 12.2-14.7 INR in platelet poor plasma or blood by coagulation assay 1.0 0.8-1.4 Complete urinalysis with reflex to culture - 07/23/16 07:22 Urine color determination YELLOW NRG Urine clarity determination CLEAR NRG Urine pH measurement by test strip 6.5 5-9 Specific gravity of urine by test strip 1.015 1.016- 1.022 Urine protein assay by test strip, semi-quantitative 1+ NEGATIVE Urine glucose detection by automated test strip NEGATIVE NEGATIVE Erythrocytes detection in urine sediment by light microscopy NEGATIVE NEGATIVE Urine ketones detection by automated test strip NEGATIVE NEGATIVE Urine nitrite detection by test strip NEGATIVE NEGATIVE Urine total bilirubin detection by test strip NEGATIVE NEGATIVE Urine urobilinogen measurement by automated test strip (mass/volume) 1 mg/dL NORMAL Urine leukocyte esterase detection by dipstick 1+ NEGATIVE Automated urine sediment erythrocyte count by microscopy (number/high power field) NONE NRG Automated urine sediment leukocyte count by microscopy (number/high power field ) [HPF] NRG Bacteria detection in urine sediment by light microscopy FEW NRG Squamous epithelial cells detection in urine sediment by light microscopy 10-25 NRG Crystals detection in urine sediment by light microscopy NONE NRG Casts detection in urine sediment by light microscopy NONE NRG Mucus detection in urine sediment by light microscopy MODERATE NRG Complete urinalysis with reflex to culture YES [facility] Comprehensive metabolic panel - 07/23/16 07:22 Serum or plasma sodium measurement (moles/volume) 141 mmol/L 135-145 Serum or plasma potassium measurement (moles/volume) 3.5 mmol/L 3.6-5.0 Serum or plasma chloride measurement (moles/volume) 101 mmol/L 98-107 Carbon dioxide 27 mmol/L 21-32 Serum or plasma anion gap determination (moles/volume) 13 mmol/L 5-14 Serum or plasma urea nitrogen measurement (mass/volume) 12 mg/dL 7-18 Serum or plasma creatinine measurement (mass/volume) 0.84 mg/dL 0.60-1.30 Serum or plasma urea nitrogen/creatinine mass ratio 14 NRG Serum or plasma creatinine measurement with calculation of estimated glomerular filtration rate > NRG Serum or plasma glucose measurement (mass/volume) 158 mg/dL 70-105 Serum or plasma calcium measurement (mass/volume) 9.7 mg/dL 8.5-10.1 Serum or plasma total bilirubin measurement (mass/volume) 0.9 mg/dL 0.1-1.0 Serum or plasma alkaline phosphatase measurement (enzymatic activity/volume) 65 U/L 40-136 Serum or plasma aspartate aminotransferase measurement (enzymatic activity/ volume) 48 U/L 5-34 Serum or plasma alanine aminotransferase measurement (enzymatic activity/volume ) 49 U/L 0-55 Serum or plasma protein measurement (mass/volume) 6.7 g/dL 6.4-8.2 Serum or plasma albumin measurement (mass/volume) 3.9 g/dL 3.2-4.5 Lipid 1996 panel - 07/23/16 07:22 Serum or plasma triglyceride measurement (mass/volume) 228 mg/dL <150 Serum or plasma cholesterol measurement (mass/volume) 264 mg/dL < 200 Serum or plasma cholesterol in HDL measurement (mass/volume) 48 mg/ dL 40-60 Cholesterol in LDL [mass/volume] in serum or plasma by direct assay 184 mg/dL 1-129 Serum or plasma cholesterol in VLDL measurement (mass/volume) 46 mg/ dL 5-40 Bacterial urine culture - 07/23/16 07:22 URINE CULTURE RESULTS <10,000/ML NRG Encounters ACCT No. Visit Date/Time Discharge Status Pt. Type Provider Facility Loc./Unit Complaint [id number] 11/12/2016 13:27:00 11/12/2016 23:59:59 CLS Outpatient RICCARDO ATKINSON APRN [facility] RT ALLERGIC RHINITIS [id number] 10/27/2016 13:23:00 10/27/2016 14:28:00 DIS Outpatient GALE GREGORY MD [facility] CARD M47.816 M53.3 SPONDYLOSIS SACROCOCCYGEAL DISORDERS [id number] 10/24/2016 09:00:00 10/24/2016 23:59:59 CLS Preadmit GALE GREGORY MD [facility] CARD M47.816,M53.3 [id number] 08/21/2016 09:00:00 08/21/2016 23:59:59 CLS Preadmit BASIM MASSEY MD [facility] CARD PVC,PALPITATION,HTN [id number] 05/22/2016 09:01:00 08/20/2016 00:01:00 DIS Outpatient BASIM MASSEY MD [facility] CARD PVC,PALPITATION,HTN [id number] 07/23/2016 06:54:00 07/23/2016 15:45:00 DIS Outpatient BASIM MASSEY MD [facility] CATH ABNORMAL STRESS TEST,CP, HTN,DM [id number] 06/18/2016 12:44:00 06/18/2016 23:59:59 CLS Outpatient JOSE RAUL SILVESTRE APRN [facility] RAD SHORTNESS OF BREATH, COUGH [id number] 05/28/2016 12:13:00 05/28/2016 23:59:59 CLS Outpatient BASIM MASSEY MD [facility] CARD ANTERIOR CHEST WALL PAINS [id number] 02/15/2016 09:07:00 02/15/2016 10:18:00 DIS Outpatient GALE GREGORY MD [facility] SPONDYLOSIS W/O MYELOPATHY OR RADICUOPATHY LUMBAR [id number] 02/01/2016 09:19:00 02/01/2016 11:12:00 DIS Outpatient GALE GREGORY MD [facility] SPONDYLOSIS W/O MYELOPATHY [id number] 06/18/2015 08:35:00 06/18/2015 23:59:59 CLS Outpatient GALE GREGORY MD [facility] RAD PAIN IN THORACIC SPINE [id number] 05/14/2015 21:23:00 05/14/2015 23:50:00 DIS Emergency BONITA NEGRON APRN [facility] ER VOMITING/FEVER [id number] 11/03/2014 09:56:00 11/03/2014 23:59:59 CLS Outpatient GALE GREGORY MD [facility] CARD LUMBAR SPONDYLOSIS [id number] 10/20/2014 09:49:00 10/20/2014 23:59:59 CLS Outpatient AGLE GREGORY MD [facility] CARD SIJD [id number] 09/22/2014 06:49:00 09/22/2014 08:03:00 DIS Outpatient GALE GREGORY MD [facility] CARD SACROILIAC JOINT DYSFUNTION [id number] 09/04/2014 00:11:00 09/04/2014 23:59:59 CLS Preadmit BOBY BARRETT MD [facility] LAB DIARRHEA [id number] 06/06/2014 14:40:00 09/03/2014 00:01:00 DIS Outpatient BOBY BARRETT MD [facility] LAB DIARRHEA [id number] 04/17/2014 07:34:00 04/17/2014 23:59:59 CLS Outpatient BASIM MASSEY MD [facility] CARD HTN,HLP,PVC [id number] 04/13/2014 12:35:00 04/13/2014 23:59:59 CLS Outpatient BASIM MASSEY MD [facility] CARD HTN,HLP,PVC [id number] 03/01/2014 14:55:00 03/01/2014 23:59:59 CLS Outpatient ASHLEY PAGAN MD [facility] RAD CERVICALGIA [id number] 02/27/2014 12:28:00 02/27/2014 13:45:00 DIS Outpatient GALE GREGORY MD [facility] CARD SACROILIAC JOINT DISFUNCTION [id number] 12/30/2013 09:01:00 12/30/2013 23:59:59 CLS Outpatient GALE GREGORY MD [facility] CARD DISEASE LUMBAR [id number] 12/12/2013 14:52:00 12/12/2013 23:59:59 CLS Outpatient GALE GREGORY MD [facility] CARD LUMBAR DDD [id number] 12/09/2013 06:58:00 12/11/2013 10:35:00 DIS Inpatient BOBY BARRETT MD [facility] 4TH SEVERE BACK PAIN, LEISON LFT ILIUM [id number] 12/07/2013 08:27:00 12/07/2013 23:59:59 CLS Outpatient BOBY BARRETT MD [facility] RAD LYTIC LEISON [id number] 11/25/2013 14:15:00 11/25/2013 23:59:59 CLS Outpatient BOBY BARRETT MD [facility] RAD SEVERE BACK PAIN [id number] 11/21/2013 13:33:00 11/21/2013 23:59:59 CLS Outpatient BOBY BARRETT MD [facility] RAD HX OF BACK SURGERY, SEVERE BACK PAIN, [id number] 11/01/2013 06:48:00 11/01/2013 23:59:59 CLS Outpatient STAN CANELA MD [facility] SCREENING [id number] 10/27/2013 07:34:00 10/27/2013 23:59:59 CLS Outpatient STAN CANELA MD [facility] PREOP SCREENING [id number] 08/07/2017 10:00:00 PEN Preadmit PETE VALLEJO MD [facility] CATARACT RIGHT EYE [id number] 08/04/2014 10:14:00 Document Registration [id number] 04/14/2012 16:29:00 Document Registration [id number] 06/03/2011 08:00:00 Document Registration [id number] 04/03/2011 20:12:00 Document Registration [id number] 03/04/2011 08:05:00 Document Registration [id number] 10/26/2006 14:30:00 Document Registration
[2017-08-07] MEDS ORDERED: POVIDONE (BETADINE) OPHTH SOLN 5% 30 ML OP ONE (08:45)
[2017-08-07] MEDS ORDERED: EPINEPHrine INJECTION 1 MG/ML AMP INJ ONE (08:45)
[2017-08-07] MEDS ORDERED: TIMOLOL MALEATE 0.5% 5 ML (TIMOPTIC) BTL OU PRN (08:45)
[2017-08-07] MEDS ORDERED: LIDOCAINE PF 1% 2 ML AMP IR PRN (08:45)
[2017-08-07] MEDS ORDERED: VANCOMYCIN/BSS (COMPOUNDED) 10 MG/ML SYR OP ONE (08:45)
[2017-08-07] MEDS: TETRACAINE 0.5% OPHTH SOLN 4 ML BTL (SINGLE DOSE ONLY) OU PRN ×4 (08:58→09:17)
[2017-08-07] MEDS: PHENYLEPHRINE 10% OPHTH (NEO-SYN) 5 ML BTL OU SCH ×3 (09:04→09:17)
[2017-08-07] MEDS: CYCLOPENTOLATE 1% (CYCLOGYL) 2 ML DROPS OP SCH ×3 (09:04→09:17)
[2017-08-07 09:10] VITALS: BP 119/64
[2017-08-07] MEDS ORDERED: MIDAZOLAM 2 MG/2 ML (VERSED) VIAL ONE (09:45)
--- NOTE | 2017-08-07 10:09 | Ophthalmology Operative Report ---
Cataract removal/placement IOL PREOPERATIVE DIAGNOSIS: Cataract Right Eye POSTOPERATIVE DIAGNOSIS: Cataract Right Eye PROCEDURE: Cataract removal and placement of posterior chamber implant, right eye SURGEON: Biran Vallejo ANESTHESIA: Topical with sedation COMPLICATIONS: None ESTIMATED BLOOD LOSS: Minimal DESCRIPTION OF PROCEDURE: After proper informed consent was obtained, the patient, a 77 female, was taken to the Operating Room and the right eye was anesthetized with tetracaine. They right eye was then prepped and draped in the usual manner. A wire lid speculum was placed. A paracentesis was made at the left hand position. Preservative free lidocaine was injected into the anterior chamber followed by viscoelastic. A clear corneal incision was made in the temporal position. A capsulorrhexis was preformed and the central nuclear and cortical material were removed. The posterior capsule was polished and an David [id number] 21.0 IOL was placed into the capsular bag. The residual viscoelastic was aspirated and balanced saline solution was injected into the anterior chamber. 1.0 ml of Vancomycin (10mg/ 1.0ml) was injected into the anterior chamber. The would was checked and found to be water tight. The patient tolerated the procedure well without complications. BRIAN VALLEJO MD Aug 07, 2017 10:09
[2017-08-07 10:10] VITALS: BP 108/74
--- NOTE | 2017-08-07 11:04 | Anesthesia-General Post-Op ---
MAC Patient Condition Mental Status/LOC: Same as Preop Cardiovascular: Satisfactory Nausea/Vomiting: Absent Respiratory: Satisfactory Pain: Controlled Complications: Absent Post Op Complications Complications None Follow Up Care/Instructions Patient Instructions None needed. Anesthesiology Discharge Order Discharge Order Patient is doing well, no complaints, stable vital signs, no apparent adverse anesthesia problems. No complications reported per nursing. PACO BUTLER CRNA Aug 07, 2017 11:04
== END 2017-08-07 10:17 | disposition home or self-care (01) ==
LOC: SDC 08:18
PROVIDERS: ATTEND Specialist
DX: E11.36 Type 2 diabetes mellitus with diabetic cataract (principal); I10 Essential (primary) hypertension; I25.10 Atherosclerotic heart disease of native coronary artery without angina pectoris; J45.909 Unspecified asthma, uncomplicated; M19.91 Primary osteoarthritis, unspecified site; E66.9 Obesity, unspecified; Z68.38 Body mass index [BMI] 38.0-38.9, adult; Z79.4 Long term (current) use of insulin; Z79.82 Long term (current) use of aspirin; Z79.899 Other long term (current) drug therapy
CPT/HCPCS: 82962

== ENCOUNTER → 2017-08-14 | Outpatient (CLI) | payer MEDICARE ==
[~2017-08-14] VITALS: Ht 162.6 cm; Wt 101.6 kg
== END ==
LOC: PREOP 08-13 05:39
PROVIDERS: ATTEND Specialist
DX: Z01.818 Encounter for other preprocedural examination (principal); H25.12 Age-related nuclear cataract, left eye

== ENCOUNTER 2017-08-21 07:12 | Day surgery (SDC) | payer MEDICARE ==
[~2017-08-21] VITALS: Ht 162.6 cm; Wt 101.6 kg
[2017-08-21] MEDS ORDERED: LIDOCAINE PF 1% 2 ML AMP IR PRN (07:45)
[2017-08-21] MEDS ORDERED: TIMOLOL MALEATE 0.5% 5 ML (TIMOPTIC) BTL OU PRN (07:45)
[2017-08-21] MEDS ORDERED: EPINEPHrine INJECTION 1 MG/ML AMP INJ ONE (07:45)
[2017-08-21] MEDS ORDERED: VANCOMYCIN/BSS (COMPOUNDED) 10 MG/ML SYR OP ONE (07:45)
[2017-08-21] MEDS ORDERED: POVIDONE (BETADINE) OPHTH SOLN 5% 30 ML OP ONE (07:45)
[2017-08-21 07:50] VITALS: BP 111/61
[2017-08-21] MEDS: TETRACAINE 0.5% OPHTH SOLN 4 ML BTL (SINGLE DOSE ONLY) OU PRN ×4 (07:53→08:22)
[2017-08-21] MEDS: PHENYLEPHRINE 10% OPHTH (NEO-SYN) 5 ML BTL OU SCH ×3 (08:01→08:22)
[2017-08-21] MEDS: CYCLOPENTOLATE 1% (CYCLOGYL) 2 ML DROPS OP SCH ×3 (08:01→08:22)
--- NOTE | 2017-08-21 08:42 | Ophthalmologist Pre-Op Note ---
Pre-Operative Progress Note H&P Reviewed The H&P was reviewed, patient examined and no changes noted. Date H&P Reviewed: Aug 21, 2017 Time H&P Reviewed: 08:42 Pre-Op Dx Cataract, Left Eye PETE VALLEJO MD Aug 21, 2017 08:42
[2017-08-21] MEDS ORDERED: MIDAZOLAM 2 MG/2 ML (VERSED) VIAL ONE (08:49)
--- NOTE | 2017-08-21 09:09 | Ophthalmology Operative Report ---
Cataract removal/placement IOL PREOPERATIVE DIAGNOSIS: Cataract Left Eye POSTOPERATIVE DIAGNOSIS: Cataract Left Eye PROCEDURE: Cataract removal and placement of posterior chamber implant, left eye SURGEON: Brian Vallejo ANESTHESIA: Topical with sedation COMPLICATIONS: None ESTIMATED BLOOD LOSS: Minimal DESCRIPTION OF PROCEDURE: After proper informed consent was obtained, the patient, a 77 female, was taken to the Operating Room and the left eye was anesthetized with tetracaine. They left eye was then prepped and draped in the usual manner. A wire lid speculum was placed. A paracentesis was made at the left hand position. Preservative free lidocaine was injected into the anterior chamber followed by viscoelastic. A clear corneal incision was made in the temporal position. A capsulorrhexis was preformed and the central nuclear and cortical material were removed. The posterior capsule was polished and David SN6CWS 21.5 IOL was placed into the capsular bag. The residual viscoelastic was aspirated and balanced saline solution was injected into the anterior chamber. 1.0 ml of Vancomycin (10mg/ 1.0ml) was injected into the anterior chamber. The would was checked and found to be water tight. The patient tolerated the procedure well without complications. BRIAN VALLEJO MD Aug 21, 2017 09:09
[2017-08-21 09:10] VITALS: BP 131/70
--- NOTE | 2017-08-21 15:07 | Anesthesia-General Post-Op ---
MAC Patient Condition Mental Status/LOC: Same as Preop Cardiovascular: Satisfactory Nausea/Vomiting: Absent Respiratory: Satisfactory Pain: Controlled Complications: Absent Post Op Complications Complications None Follow Up Care/Instructions Patient Instructions None needed. Anesthesiology Discharge Order Discharge Order Patient is doing well, no complaints, stable vital signs, no apparent adverse anesthesia problems. No complications reported per nursing. DIANE GONZALEZ CRNA Aug 21, 2017 15:07
--- OUTSIDE RECORDS SUMMARY | 2017-08-23 03:46 | XMS REPORT | Clinical Summary ---
Author Author [facility] Organization [facility] Address Unknown Phone Unavailable Care Team Providers Care Associate Account Director Name Role Phone Matthew Burch MD Unavailable Shanthi Clay MD PCP eKya De La Paz MD 21 Source Comments Some departments are not documenting in the electronic medical record. If you do not see the information that you expected, contact Release of Information in the Health Information Management department at [phone] for further assistance in locating additional records.[facility] Allergies Active Allergy Reactions Severity Noted [...] solution for Wheezing or Shortness of Breath. [employer]-3 Acid Ethyl Esters Take 1 g by mouth three Active 1 gram cap times daily. amLODIPine (NORVASC) 5 mg Take 5 mg by mouth daily. Active tablet losartan (COZAAR) 25 mg Take 25 mg by mouth Active tablet daily. ranolazine ER (RANEXA) Take 1 tablet by mouth 180 tablet 3 03/24/20 Active 1,000 mg twice daily. 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 01/07/2017 unsuccessful attempt at ASSOCIATE ACCOUNT DIRECTOR of the LAD with antegrade approach. returning feb 09 to attempt retrograde approach 03/23/17 - unsuccessful attempt at PCI of ASSOCIATE ACCOUNT DIRECTOR of LAD. Started on Ranexa Essential hypertension Hyperlipidemia Insulin dependent diabetes mellitus (HCC) Encounters Date Type Specialty Care Team Description 07/03/2017 Documentation Cardiology Tina Toscano RN Labs Only (BMP) 06/09/2017 Office Visit Cardiology Dakota Contreras MD Cardiac Eval (2 month hosp. f/u Cardiac Catheterization, PCI of ASSOCIATE ACCOUNT DIRECTOR of LAD) 06/09/2017 Telephone Cardiology Tina Toscano RN Lab Request ( repeat BMP due 06/16 - faxed order to [facility] in [place], [place]) from Last 3 Months Social History Tobacco Use Types Packs/Day Years Used Date Former Smoker Cigarettes 06/15/1960 - 06/15/1987 Smokeless Tobacco: Never Used Sex Assigned at Date Recorded Not on file Last Filed Vital Signs Vital Sign Reading Time Taken Blood Pressure 108/58 06/09/2017 10:30 AM BLASTING ENTRY SPECIALIST Pulse 59 06/09/2017 10:30 AM BLASTING ENTRY SPECIALIST Temperature 36.8 C (98.2 F) 03/24/2017 4:00 AM CDT Respiratory Rate - - Oxygen Saturation 95% 03/24/2017 6:00 AM CDT Inhaled Oxygen - - Concentration Weight 101.6 kg (224 lb) 06/09/2017 10:30 AM BLASTING ENTRY SPECIALIST Height 162.6 cm (5' 4") 06/09/2017 10:30 AM BLASTING ENTRY SPECIALIST Body Mass Index 38.45 06/09/2017 10:30 AM BLASTING ENTRY SPECIALIST Plan of Treatment Health Maintenance Due Date Last Done Comments PHYSICAL (COMPREHENSIVE) 1948 EXAM PERTUSSIS VACCINE 1952 TETANUS VACCINE 1958 DILATED EYE EXAM 1959 FOOT EXAM 1959 HBA1C 1959 MICROALBUMIN 1959 SHINGLES VACCINE 2001 OSTEOPOROSIS SCREENING 2006 PREVNAR/PNEUMOVAX (#1) 2006 INFLUENZA VACCINE 03/15/2018 Results * BASIC METABOLIC PANEL (06/26/2017) Component Value Ref Range Sodium 135 Potassium 3.8 Chloride 95 CO2 33.0 Blood Urea Nitrogen 17 Creatinine 0.9 Glucose 279 (H) Calcium 9.5 eGFR Non 65 eGFR Anion Gap 11 Specimen Performing Laboratory Blood [facility] [place] [address] [facility] , [address] [place] [address] from Last 3 Months
--- OUTSIDE RECORDS SUMMARY | 2017-08-23 03:46 | XMS REPORT | Encounter Summary ---
Author Author [facility] Organization [facility] Address Unknown Phone Unavailable Care Team Providers Care Dust Control Engineer Name Role Phone Matthew Burch MD Unavailable Shanthi Clay MD PCP Keya De La Paz MD 21 Reason for Visit * Reason Comments Lab Request repeat BMP due 2 - faxed order to [facility] in [place], [place] Encounter Details Date Type Department Care Team Description 06/09/2017 Telephone [facility] Cardiology Tina Toscano RN Lab Request (repeat BMP [address] due 06/16 - faxed order to [facility] in [place], [place]) [place] [address] Social History Tobacco Use Types Packs/Day Years Used Date Former Smoker Cigarettes 06/15/1960 - 06/15/1987 Smokeless Tobacco: Never Used Sex Assigned at Date Recorded Not on file as of this encounter Miscellaneous Notes * Telephone Encounter - Tina Toscano RN - 06/09/2017 12:21 PM SENIOR MARKETING DATA ANALYST BMP order faxed to [facility] in [place], [place] - due / (one week after starting spironolactone). . Fax confirmation received. in this encounter Plan of Treatment Not on fileas of this encounter Visit Diagnoses Not on filein this encounter
--- OUTSIDE RECORDS SUMMARY | 2017-08-23 03:46 | XMS REPORT | Continuity of Care Document ---
Author Author [facility] Organization [facility] Address Unknown Phone Unavailable Care Team Providers Care Senior Product Engineer Name Role Phone [employer] Unavailable Unavailable Problems Medications Allergies, Adverse Reactions, Alerts Immunizations Results Vital Signs Encounters Location Location Details Encounter Type Encounter Number Reason For Visit Attending Provider ADM Date DC Date Status Source OUTPATIENT [id number] STAN ONEIL 01/06/2017 01/06/2017 Active [facility] EXT RECOVERY [id number] STAN ONEIL 02/11/2017 02/12/2017 Active [facility] EXT RECOVERY [id number] STAN ONEIL 03/23/2017 03/24/2017 Active [facility] OUTPATIENT [id number] TSAN ONEIL 05/19/2017 Active [facility] OUTPATIENT [id number] STAN ONEIL 06/09/2017 Active [facility] O Active [facility] Procedures Plan of Care Social History Assessment and Plan Family History Advance Directives Functional Status
--- OUTSIDE RECORDS SUMMARY | 2017-08-23 03:46 | XMS REPORT | Encounter Summary ---
Author Author [facility] Organization [facility] Address Unknown Phone Unavailable Care Team Providers Care Electron Gun Assembler Name Role Phone Matthew Burch MD Unavailable Shanthi Clay MD PCP Keya De La Paz MD 21 Reason for Visit * Reason Comments Cardiac Eval 2 month hosp. f/u Cardiac Catheterization, PCI of WELFARE MANAGER of LAD Encounter Details Date Type Department Care Team Description 06/09/2017 Office Visit [facility] Cardiology Dakota Contreras MD Cardiac Eval (2 month [address] hosp[address] f/u Cardiac [facility] [address] Catheterization, [place] [address] [place] [address] WELFARE MANAGER of LAD) [phone] Social History Tobacco Use Types Packs/Day Years Used Date Former Smoker Cigarettes 06/15/1960 - 06/15/1987 Smokeless Tobacco: Never Used Sex Assigned at Date Recorded Not on file as of this encounter Last Filed Vital Signs Vital Sign Reading Time Taken Blood Pressure 108/58 06/09/2017 10:30 AM FIELD COUNSEL Pulse 59 06/09/2017 10:30 AM FIELD COUNSEL Temperature - - Respiratory Rate - - Oxygen Saturation - - Inhaled Oxygen - - Concentration Weight 101.6 kg (224 lb) 06/09/2017 10:30 AM FIELD COUNSEL Height 162.6 cm (5' 4") 06/09/2017 10:30 AM FIELD COUNSEL Body Mass Index 38.45 06/09/2017 10:30 AM FIELD COUNSEL in this encounter Instructions * Patient Instructions - Caitlyn Downing APRN-C - 06/09/2017 11:00 AM FIELD COUNSEL Start taking spironolactone 25 mg daily. Stop taking potassium Check blood work in 1 week. in this encounter Progress Notes * Dakota Contreras MD - 06/09/2017 11:00 AM FIELD COUNSEL Formatting of this note may be different from the original. Date of Service: 06/09/2017 Sasha Angel is a 76 [address] HPI [address] Contreras and I had the pleasure of seeing Sasha Angel for post hospital cardiac follow-up. She is a 76-year-old with history of coronary disease. She has a chronic total occlusion of the right coronary artery. She was referred by an outside armament repairer for intervention. She has had 3 attempts [...] diabetes mellitus (HCC) Coronary artery disease of [place] artery of [place] heart with stable angina pectoris (HCC) 12/30/2016 07/23/16: Left heart cath (Via [facility] in [place], [place]) - calcified coronary system overall with [...] Calculated EF 65%. 01/07/2017 unsuccessful attempt at WELFARE MANAGER of the LAD with antegrade approach. returning feb 09 to attempt retrograde approach 03/23/17 - unsuccessful attempt at PCI of WELFARE MANAGER of LAD. Started on Ranexa Review of [...] Diagnoses Name Primary? Coronary artery disease of [place] artery of [place] heart with stable angina pectoris (HCC) Yes [...] should continue to follow with her outside armament repairer and we will see her on an [...] with Dr. De La Paz her primary armament repairer. We will plan to see her back [...] Pain. Max of 3 tablets, call 911. [place]-3 Acid Ethyl Esters 1 gram cap Take [...] 11 Specimen Performing Laboratory Blood [facility] [address] , [address] [place] [address] in this encounter Visit Diagnoses Diagnosis Coronary artery disease of [place] artery of [place] heart with stable angina pectoris (HCC) - Primary Essential hypertension Unspecified essential hypertension Mixed hyperlipidemia
--- OUTSIDE RECORDS SUMMARY | 2017-08-23 03:46 | XMS REPORT | Encounter Summary ---
Author Author [facility] Organization [facility] Address Unknown Phone Unavailable Care Team Providers Care Licensed Funeral Director Name Role Phone Matthew Burch MD Unavailable Shanthi Clay MD PCP Keya De La Paz MD 21 Reason for Visit * Reason Comments Labs Only BMP Encounter Details Date Type Department Care Team Description 07/03/2017 Documentation [facility] Cardiology Tina Toscano RN Labs Only (BMP) [address] [place] [address] Social History Tobacco Use Types Packs/Day Years [...] 11 Specimen Performing Laboratory Blood [facility] [place] [address] [facility] , [address] [place] [address] in this encounter Visit Diagnoses Diagnosis Essential hypertension Unspecified essential hypertension
--- OUTSIDE RECORDS SUMMARY | 2017-08-23 03:54 | XMS REPORT | Continuity of Care Document ---
Author Author [facility] Organization [facility] Address Unknown Phone Unavailable Allergies Active Description Code Type Severity Reaction Onset Reported/Identified Relationship to Patient Clinical Status Yes erythromycin base [id number] Drug Allergy Unknown SICK TO HER STO 2006 Yes morphine [id number] Drug Allergy Unknown UNKNOWN 10/27/2006 Yes propoxyphene [id number] Drug Allergy Unknown UNKNOWN 10/27/2006 Yes Sulfa (Sulfonamide Antibiotics) [id number] Drug Allergy Unknown HIVES, SOB 10/27/2006 Medications [...] Ot 786.07 08/09/2014 Ot 786.2 09/03/2014 BOBY BARRETT MD Ot 787.91 DIARRHEA 09/15/2014 BOBY BARRETT MD Ot 724.02 09/15/2014 BOBY BARRETT MD Ot 724.2 09/15/2014 BOBY BARRETT [...] ARNOLD PRETTY, BOBY Austin Ot 787.91 06/18/2015 GALE GREGORY MD Ot 721.3 06/18/2015 [...] 02/01/2016 GALE GREGORY MD, Ot Z79.899 OTHER RESIDENTIAL (CURRENT) DRUG THERAPY 02/11/2016 GALE GREGORY MD, Ot G89.4 CHRONIC PAIN SYNDROME 02/11/2016 GALE GREGORY MD, Ot M47.814 SPONDYLOSIS W/O MYELOPATHY OR RADICULOPA 02/11/2016 GALE GREGORY MD, Ot M51.16 INTERVERTEBRAL DISC DISORDERS W RADICULO 02/11/2016 GALE GREGORY MD, Ot Z79.899 OTHER SPLUNK CONSULTANT (CURRENT) DRUG THERAPY 02/13/2016 GALE GREGORY MD, Ot G89.4 CHRONIC PAIN SYNDROME 02/13/2016 GALE GREGORY MD, Ot M47.814 SPONDYLOSIS W/O MYELOPATHY OR RADICULOPA 02/13/2016 GALE GREGORY MD, Ot M51.16 INTERVERTEBRAL DISC DISORDERS W RADICULO 02/13/2016 GALE GREGORY MD Ot Z79.899 OTHER SPLUNK CONSULTANT (CURRENT) DRUG THERAPY 02/15/2016 GALE GREGORY MD Ot G89.4 CHRONIC PAIN SYNDROME 02/15/2016 GALE GREGORY MD Ot M47.814 SPONDYLOSIS W/O MYELOPATHY OR RADICULOPA 02/15/2016 GALE GREGORY MD, Ot M47.816 SPONDYLOSIS W/O MYELOPATHY OR RADICULOPA 02/15/2016 GALE GREGORY MD, Ot M53.3 SACROCOCCYGEAL DISORDERS, NOT ELSEWHERE 02/15/2016 GALE GREGORY MD Ot Z79.899 OTHER SPLUNK CONSULTANT (CURRENT) DRUG THERAPY 02/28/2016 GALE GREGORY MD Ot G89.4 CHRONIC PAIN SYNDROME 02/28/2016 GALE GREGORY MD, Ot M47.814 SPONDYLOSIS W/O MYELOPATHY OR RADICULOPA 02/28/2016 GALE GREGORY MD, Ot M47.816 SPONDYLOSIS W/O MYELOPATHY OR RADICULOPA 02/28/2016 GALE GREGORY MD, Ot M53.3 SACROCOCCYGEAL DISORDERS, NOT ELSEWHERE 02/28/2016 GALE GREGORY MD Ot Z79.899 OTHER SPLUNK CONSULTANT (CURRENT) DRUG THERAPY 05/22/2016 Ot 785.1 PALPITATIONS [...] MD Ot 724.4 LUMBOSACRAL NEURITIS NOS 05/22/2016 BOYB BARRETT MD Ot 756.12 SPONDYLOLISTHESIS 05/22/2016 BOBY [...] OTHER CHEST PAIN 06/19/2016 JOSE RAUL SILVESTRE CONSUMER LOAN MANAGER Ot R05 COUGH 06/19/2016 JOSE RAUL SILVESTRE CONSUMER LOAN MANAGER Ot R06.02 SHORTNESS OF BREATH 06/23/2016 BASIM MASSEY MD Ot R07.89 OTHER CHEST PAIN 06/30/2016 BASIM MASSEY MD Ot R07.89 OTHER CHEST PAIN 2016 JOSE RAUL SILVESTRE CONSUMER LOAN MANAGER Ot R05 COUGH 2016 JOSE RAUL SILVESTRE CONSUMER LOAN MANAGER Ot R06.02 SHORTNESS OF BREATH 07/23/2016 BASIM MASSEY MD Ot E11.9 TYPE 2 DIABETES MELLITUS WITHOUT COMPLIC 07/23/2016 BASIM MASSEY MD Ot E78.5 HYPERLIPIDEMIA, UNSPECIFIED 07/23/2016 BASIM MASSEY MD Ot I10 ESSENTIAL (PRIMARY) HYPERTENSION 07/23/2016 BASIM MASSEY MD Ot I25.10 ATHSCL HEART DISEASE OF [place] CORONARY 07/23/2016 BASIM MASSEY MD Ot 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[place] 07/23/2016 BASIM MASSEY MD Ot 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 [place] 07/23/2016 BASIM MASSEY MD Ot I70.0 ATHEROSCLEROSIS OF [place] 07/23/2016 BASIM MASSEY MD Ot R94.39 ABNORMAL RESULT OF OTHER CARDIOVASCULAR 07/23/2016 BASIM MASSEY MD Ot Z79.4 RESIDENTIAL (CURRENT) USE OF INSULIN 07/23/2016 BASIM MASSEY MD Ot Z79.899 OTHER RESIDENTIAL (CURRENT) DRUG THERAPY 07/29/2016 BASIM MASSEY MD Ot E11.9 TYPE 2 DIABETES MELLITUS WITHOUT COMPLIC 07/29/2016 BASIM MASSEY MD Ot E78.5 HYPERLIPIDEMIA, UNSPECIFIED 07/29/2016 BASIM MASSEY MD Ot I10 ESSENTIAL (PRIMARY) HYPERTENSION 07/29/2016 BASIM MASSEY MD Ot I25.10 ATHSCL HEART DISEASE OF [place] CORONARY 07/29/2016 BASIM MASSEY MD Ot 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ANAHI 07/29/2016 BASIM MASSEY MD Ot 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 [place] 07/29/2016 BASIM MASSEY MD Ot I70.0 ATHEROSCLEROSIS OF [place] 07/29/2016 BASIM MASSEY MD Ot R94.39 ABNORMAL RESULT OF OTHER CARDIOVASCULAR 07/29/2016 BASIM MASSEY MD Ot Z79.4 RESIDENTIAL (CURRENT) USE OF INSULIN 07/29/2016 BASIM MASSEY MD Ot Z79.899 OTHER RESIDENTIAL (CURRENT) DRUG THERAPY 08/05/2016 JOSE RAUL SILVESTRE [...] ELSEWHERE 10/27/2016 GALE GREGORY MD Ot Z79.4 RESIDENTIAL (CURRENT) USE OF INSULIN 11/05/2016 GALE GREGORY MD Ot G89.4 CHRONIC PAIN SYNDROME 11/05/2016 GALE GREGORY MD, Ot M47.816 SPONDYLOSIS W/O MYELOPATHY OR RADICULOPA 11/05/2016 GALE GREGORY MD Ot M53.3 SACROCOCCYGEAL DISORDERS, NOT ELSEWHERE 11/05/2016 GALE GREGORY MD Ot Z79.4 SPLUNK CONSULTANT (CURRENT) USE OF INSULIN 11/13/2016 Ot 250.00 11/13/2016 Ot 401.9 11/13/2016 Ot 782.3 11/14/2016 RICCARDO ATKINSON APRN Ot J45.909 UNSPECIFIED ASTHMA, UNCOMPLICATED 11/14/2016 DEMETRIORICCARDO HORNE CONSUMER LOAN MANAGER Ot J45.909 UNSPECIFIED ASTHMA, UNCOMPLICATED 02/07/2017 RICCARDO ATKINSON APRN Ot J45.909 UNSPECIFIED ASTHMA, UNCOMPLICATED 02/27/2017 RICCARDO ATKINSON APRN Ot J45.909 UNSPECIFIED ASTHMA, UNCOMPLICATED 08/03/2017 YONI PRETTY, PETE Chatman Ot H26.9 UNSPECIFIED CATARACT 08/03/2017 YONI PRETTY, PETE Chatman Ot Z01.818 ENCOUNTER FOR OTHER PREPROCEDURAL EXAMIN 08/05/2017 PETE VALLEJO MD Ot H26.9 UNSPECIFIED CATARACT 08/05/2017 YONI PRETTY, PETE Chatman Ot Z01.818 ENCOUNTER FOR OTHER PREPROCEDURAL EXAMIN 08/05/2017 HILTON PRETTY, STAN Vazquez Ot 455.0 INT HEMORRHOID W/O COMPL 08/05/2017 STAN CANELA MD Ot V76.51 SCREEN MAL NEOP-COLON 08/05/2017 STAN CANELA MD Ot V72.84 EXAM PRE-OPERATIVE NOS 08/05/2017 BOBY BARRETT MD Ot 625.9 FEM GENITAL SYMPTOMS NOS 08/05/2017 BOBY BARRETT MD Ot 722.52 LUMB/LUMBOSAC DISC DEGEN 08/05/2017 BOBY BARRETT MD Ot 726.91 EXOSTOSIS, SITE NOS 08/05/2017 BOBY BARRETT MD Ot 733.90 BONE CARTILAGE DIS NOS 08/05/2017 OBBY BARRETT MD Ot 793.7 NOSP (ABN) FINDINGS ON RADIOLOGICAL OT 08/05/2017 BOBY BARRETT MD Ot V45.4 ARTHRODESIS STATUS 08/05/2017 BOBY BARRETT MD Ot 724.02 SPINAL STENOSIS, LUMBAR REG, W/OUT NEURO 08/05/2017 BOBY BARRETT MD Ot 724.2 LUMBAGO 08/05/2017 BOBY BARRETT MD Ot 724.4 LUMBOSACRAL NEURITIS NOS 08/05/2017 BOBY BARRETT MD Ot 756.12 SPONDYLOLISTHESIS 08/05/2017 BOBY BARRETT MD Ot V45.4 ARTHRODESIS STATUS 08/05/2017 BOBY BARRETT MD Ot 724.5 BACKACHE NOS 08/05/2017 BOBY BARRETT MD Ot 733.90 BONE CARTILAGE DIS NOS 08/05/2017 GALE GREGORY MD Ot 722.52 LUMB/LUMBOSAC DISC DEGEN 08/05/2017 GALE GREGORY MD, Ot V58.69 OTH MED,LT,CURRENT USE 08/05/2017 GALE GREGORY MD Ot 278.00 OBESITY, NOS 08/05/2017 GALE GREGORY MD Ot 721.3 LUMBOSACRAL SPONDYLOSIS 08/05/2017 GALE GREGORY MD Ot 722.52 LUMB/LUMBOSAC DISC DEGEN 08/05/2017 GALE GREGORY MD Ot 722.83 POSTLAMINECT SYND-LUMBAR 08/05/2017 GALE GREGORY MD, Ot V58.69 OTH MED,LT,CURRENT USE 08/05/2017 GALE GREGORY MD Ot V85.35 BODY MASS INDEX 35.0-35.9, ADULT 08/05/2017 ASHLEY PAGAN MD Ot 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 DISC DEGEN 08/05/2017 BASIM MASSEY MD Ot 272.4 HYPERLIPIDEMIA NEC/NOS 08/05/2017 BASIM MASSEY MD Ot 397.0 TRICUSPID VALVE DISEASE 08/05/2017 BASIM MASSEY MD Ot 401.9 HYPERTENSION NOS 08/05/2017 BASIM MASSEY MD Ot 424.0 MITRAL VALVE DISORDER 08/05/2017 BASIM MASSEY MD Ot 427.69 PREMATURE BEATS NEC 08/05/2017 BASIM MASSEY MD Ot 272.4 HYPERLIPIDEMIA NEC/NOS 08/05/2017 BASIM MASSEY MD Ot 278.00 OBESITY, NOS 08/05/2017 BASIM MASSEY MD Ot 401.9 HYPERTENSION NOS 08/05/2017 BASIM MASSEY MD Ot 427.69 PREMATURE BEATS NEC 08/05/2017 BASIM MASSEY MD Ot V85.33 BODY MASS INDEX 33.0-33.9, ADULT 08/05/2017 Ot 786.07 WHEEZING 08/05/2017 Ot 786.2 COUGH 08/05/2017 ARNOLD PRETTY, BOBY Austin Ot 787.91 DIARRHEA 08/05/2017 GALE GREGORY MD Ot 721.3 LUMBOSACRAL SPONDYLOSIS 08/05/2017 GALE GREGORY MD Ot 722.83 POSTLAMINECT SYND-LUMBAR 08/05/2017 GALE GREGORY MD Ot 724.6 DISORDERS OF SACRUM 08/05/2017 GALE GREGORY MD, Ot V58.69 OTH MED,LT,CURRENT USE 08/05/2017 GALE GREGORY MD Ot 721.3 LUMBOSACRAL SPONDYLOSIS 08/05/2017 GALE GREGORY MD Ot 722.83 POSTLAMINECT SYND-LUMBAR 08/05/2017 GALE GREGORY MD, Ot V58.69 OTH MED,LT,CURRENT USE 08/05/2017 GALE GREGORY MD Ot M54.6 PAIN IN THORACIC SPINE 08/05/2017 BASIM MASSEY MD Ot R07.89 OTHER CHEST PAIN 08/05/2017 JOSE RAUL SILVESTRE CONSUMER LOAN MANAGER Ot R05 COUGH 08/05/2017 JOSE RAUL SILVESTRE CONSUMER LOAN MANAGER Ot R06.02 SHORTNESS OF BREATH 08/05/2017 BASIM MASSEY MD Ot E78.2 MIXED HYPERLIPIDEMIA 08/05/2017 BASIM MASSEY MD Ot G89.4 CHRONIC PAIN SYNDROME 08/05/2017 BASIM MASSEY MD Ot I10 ESSENTIAL (PRIMARY) HYPERTENSION 08/05/2017 BASIM MASSEY MD Ot I49.3 VENTRICULAR PREMATURE DEPOLARIZATION 08/05/2017 BASIM MASSEY MD Ot M54.2 CERVICALGIA 08/05/2017 BASIM MASSEY MD Ot R00.2 PALPITATIONS 08/05/2017 RICCARDO ATKINSON APRN Ot J45.909 UNSPECIFIED ASTHMA, UNCOMPLICATED 08/07/2017 YONI PRETTY, PETE Chatman Ot E11.36 TYPE 2 DIABETES MELLITUS WITH DIABETIC C 08/07/2017 PETE VALLEJO MD Ot E66.9 OBESITY, UNSPECIFIED 08/07/2017 PETE VALLEJO MD Ot I10 ESSENTIAL (PRIMARY) HYPERTENSION 08/07/2017 PETE VALLEJO MD Ot I25.10 ATHSCL HEART DISEASE OF [place] CORONARY 08/07/2017 PETE VALLEJO MD Ot J45.909 UNSPECIFIED ASTHMA, UNCOMPLICATED 08/07/2017 PETE VALLEJO MD Ot M19.91 PRIMARY OSTEOARTHRITIS, UNSPECIFIED SITE 08/07/2017 PETE VALLEJO MD Ot Z68.38 BODY MASS INDEX (BMI) 38.0-38.9, ADULT 08/07/2017 PETE VALLEJO MD Ot Z79.4 RESIDENTIAL (CURRENT) USE OF INSULIN 08/07/2017 PETE VALLEJO MD Ot Z79.82 RESIDENTIAL (CURRENT) USE OF ASPIRIN 08/07/2017 PETE VALLEJO MD Ot Z79.899 OTHER SPLUNK CONSULTANT (CURRENT) DRUG THERAPY 08/11/2017 PETE VALLEJO MD Ot E11.36 TYPE 2 DIABETES MELLITUS WITH DIABETIC C 08/11/2017 PETE VALLEJO MD Ot E66.9 OBESITY, UNSPECIFIED 08/11/2017 PETE VALLEJO MD Ot H25.9 UNSPECIFIED AGE-RELATED CATARACT 08/11/2017 PETE VALLEJO MD Ot I10 ESSENTIAL (PRIMARY) HYPERTENSION 08/11/2017 PETE VALLEJO MD Ot I25.10 ATHSCL HEART DISEASE OF [place] CORONARY 08/11/2017 PETE VALLEJO MD Ot J45.909 UNSPECIFIED ASTHMA, UNCOMPLICATED 08/11/2017 PETE VALLEJO MD Ot M19.91 PRIMARY OSTEOARTHRITIS, UNSPECIFIED SITE 08/11/2017 PETE VALLEJO MD, Ot Z68.38 BODY MASS INDEX (BMI) 38.0-38.9, ADULT 08/11/2017 PETE VALLEJO MD Ot Z79.4 SPLUNK CONSULTANT (CURRENT) USE OF INSULIN 08/11/2017 PETE VALLEJO MD Ot Z79.82 SPLUNK CONSULTANT (CURRENT) USE OF ASPIRIN 08/11/2017 PETE VALLEJO MD Ot Z79.899 OTHER SPLUNK CONSULTANT (CURRENT) DRUG THERAPY 08/11/2017 PETE VALLEJO MD Ot E11.36 TYPE 2 DIABETES MELLITUS WITH DIABETIC C 08/11/2017 PETE VALLEJO MD Ot E66.9 OBESITY, UNSPECIFIED 08/11/2017 PETE VALLEJO MD Ot I10 ESSENTIAL (PRIMARY) HYPERTENSION 08/11/2017 PETE VALLEJO MD Ot I25.10 ATHSCL HEART DISEASE OF [place] CORONARY 08/11/2017 PETE VALLEJO MD Ot J45.909 UNSPECIFIED ASTHMA, UNCOMPLICATED 08/11/2017 PETE VALLEJO MD Ot M19.91 PRIMARY OSTEOARTHRITIS, UNSPECIFIED SITE 08/11/2017 PETE VALLEJO MD Ot Z68.38 BODY MASS INDEX (BMI) 38.0-38.9, ADULT 08/11/2017 PETE VALLEJO MD Ot Z79.4 SPLUNK CONSULTANT (CURRENT) USE OF INSULIN 08/11/2017 PETE VALLEJO MD Ot Z79.82 SPLUNK CONSULTANT (CURRENT) USE OF ASPIRIN 08/11/2017 PETE VALLEJO MD Ot Z79.899 OTHER SPLUNK CONSULTANT (CURRENT) DRUG THERAPY 08/13/2017 PETE VALLEJO MD Ot E11.36 TYPE 2 DIABETES MELLITUS WITH DIABETIC C 08/13/2017 PETE VALLEJO MD Ot E66.9 OBESITY, UNSPECIFIED 08/13/2017 PETE VALLEJO MD Ot I10 ESSENTIAL (PRIMARY) HYPERTENSION 08/13/2017 PETE VALLEJO MD Ot I25.10 ATHSCL HEART DISEASE OF [place] CORONARY 08/13/2017 PETE VALLEJO MD Ot J45.909 UNSPECIFIED ASTHMA, UNCOMPLICATED 08/13/2017 PETE VALLEJO MD Ot M19.91 PRIMARY OSTEOARTHRITIS, UNSPECIFIED SITE 08/13/2017 PETE VALLEJO MD Ot Z68.38 BODY MASS INDEX (BMI) 38.0-38.9, ADULT 08/13/2017 PETE VALLEJO MD Ot Z79.4 SPLUNK CONSULTANT (CURRENT) USE OF INSULIN 08/13/2017 PETE VALLEJO MD Ot Z79.82 RESIDENTIAL (CURRENT) USE OF ASPIRIN 08/13/2017 PETE VALLEJO MD Ot Z79.899 OTHER RESIDENTIAL (CURRENT) DRUG THERAPY 08/17/2017 PETE VALLEJO MD Ot H25.12 AGE-RELATED NUCLEAR CATARACT, LEFT EYE 08/17/2017 PETE VALLEJO MD Ot Z01.818 ENCOUNTER FOR OTHER PREPROCEDURAL EXAMIN 08/17/2017 PETE VALLEJO MD Ot H25.12 AGE-RELATED NUCLEAR CATARACT, LEFT EYE 08/17/2017 PETE VALLEJO MD Ot Z01.818 ENCOUNTER FOR OTHER PREPROCEDURAL EXAMIN Procedures There is no data. Results Test [...] Complete urinalysis with reflex to culture YES [facility] Comprehensive metabolic panel - 07/23/16 07:22 Serum [...] 07/23/16 07:22 URINE CULTURE RESULTS <10,000/ML NRG Capillary blood glucose measurement by glucometer (mass/volume) - 08/07/17 09: 01 Capillary blood glucose measurement by glucometer (mass/volume) 116 mg/dL 70-110 Encounters ACCT No. Visit Date/Time Discharge Status Pt. Type Provider Facility Loc./Unit Complaint [id number] 08/14/2017 14:00:00 08/14/2017 23:59:59 CLS Outpatient PETE VALLEJO MD [facility] PREOP CATARACT LEFT EYE [id number] 08/07/2017 08:18:00 08/07/2017 10:17:00 DIS Outpatient PETE VALLEJO MD [facility] SDC CATARACT RIGHT EYE [id number] 08/03/2017 05:39:00 08/03/2017 16:50:00 DIS Outpatient PETE VALLEJO MD [facility] PREOP CATARACT RIGHT EYE [id number] 11/12/2016 13:27:00 11/12/2016 23:59:59 CLS Outpatient RICCARDO ATKINSNO APRN [facility] RT ALLERGIC RHINITIS [id number] 10/27/2016 13:23:00 10/27/2016 14:28:00 DIS Outpatient GALE GREGORY MD [facility] CARD M47.816 M53.3 SPONDYLOSIS SACROCOCCYGEAL DISORDERS [id number] 10/24/2016 09:00:00 10/24/2016 23:59:59 CLS Preadmit GALE GREGORY MD [facility] CARD M47.816,M53.3 [id number] 08/21/2016 09:00:00 08/21/2016 23:59:59 CLS Preadmit BASIM MASSEY MD [facility] CARD PVC,PALPITATION,HTN [id number] 05/22/2016 09:01:00 08/20/2016 00:01:00 DIS Outpatient BASIM MASSEY MD [facility] PVC,PALPITATION,HTN [id number] 07/23/2016 06:54:00 07/23/2016 15:45:00 DIS Outpatient BASIM MASSEY MD [facility] ABNORMAL STRESS TEST,CP, HTN,DM [id number] 06/18/2016 12:44:00 06/18/2016 23:59:59 CLS Outpatient JOSE RAUL SILVESTRE APRN [facility] RAD SHORTNESS OF BREATH, COUGH [id number] 05/28/2016 12:13:00 05/28/2016 23:59:59 CLS Outpatient BASIM MASSEY MD [facility] CARD ANTERIOR CHEST WALL PAINS [id number] 02/15/2016 09:07:00 02/15/2016 10:18:00 DIS Outpatient GALE GREGORY MD [facility] SPONDYLOSIS W/O MYELOPATHY OR RADICUOPATHY LUMBAR [id number] 02/01/2016 09:19:00 02/01/2016 11:12:00 DIS Outpatient GALE GREGORY MD [facility] CARD SPONDYLOSIS W/O MYELOPATHY [id number] 06/18/2015 08:35:00 06/18/2015 23:59:59 CLS Outpatient GALE GREGORY MD [facility] RAD PAIN IN THORACIC SPINE [id number] 05/14/2015 21:23:00 05/14/2015 23:50:00 DIS Emergency BONITA NEGRON APRN [facility] ER VOMITING/FEVER [id number] 11/03/2014 09:56:00 11/03/2014 23:59:59 CLS Outpatient GALE GREGORY MD [facility] CARD LUMBAR SPONDYLOSIS [id number] 10/20/2014 09:49:00 10/20/2014 23:59:59 CLS Outpatient GALE GREGORY MD [facility] CARD SIJD [id number] 09/22/2014 06:49:00 09/22/2014 08:03:00 DIS Outpatient GALE GREGORY MD [facility] CARD SACROILIAC JOINT DYSFUNTION [id number] 09/04/2014 00:11:00 09/04/2014 23:59:59 CLS Preadmit BOBY BARRETT MD [facility] LAB DIARRHEA [id number] 06/06/2014 14:40:00 09/03/2014 00:01:00 DIS Outpatient BOBY BARRETT MD [facility] LAB DIARRHEA [id number] 04/17/2014 07:34:00 04/17/2014 23:59:59 CLS Outpatient BASIM MASSEY MD [facility] CARD HTN,HLP,PVC [id number] 04/13/2014 12:35:00 04/13/2014 23:59:59 CLS Outpatient BASIM MASSEY MD [facility] HTN,HLP,PVC [id number] 03/01/2014 14:55:00 03/01/2014 23:59:59 CLS Outpatient ASHLEY PAGAN MD [facility] RAD CERVICALGIA [id number] 02/27/2014 12:28:00 02/27/2014 13:45:00 DIS Outpatient GALE GREGORY MD [facility] CARD SACROILIAC JOINT DISFUNCTION [id number] 12/30/2013 09:01:00 12/30/2013 23:59:59 CLS Outpatient GALE GREGORY MD [facility] CARD DISEASE LUMBAR [id number] 12/12/2013 14:52:00 12/12/2013 23:59:59 CLS Outpatient GALE GREGORY MD [facility] CARD LUMBAR DDD [id number] 12/09/2013 06:58:00 12/11/2013 10:35:00 DIS Inpatient BOBY BARRETT MD [facility] 4TH SEVERE BACK PAIN, LEISON LFT ILIUM [id number] 12/07/2013 08:27:00 12/07/2013 23:59:59 CLS Outpatient BOBY BARRETT MD [facility] RAD LYTIC LEISON [id number] 11/25/2013 14:15:00 11/25/2013 23:59:59 CLS Outpatient BOBY BARRETT MD [facility] RAD SEVERE BACK PAIN [id number] 11/21/2013 13:33:00 11/21/2013 23:59:59 CLS Outpatient BOBY BARRETT MD [facility] RAD HX OF BACK SURGERY, SEVERE BACK PAIN, [id number] 11/01/2013 06:48:00 11/01/2013 23:59:59 CLS [facility] [id number] 10/27/2013 07:34:00 10/27/2013 23:59:59 CLS Outpatient STAN CANELA MD [facility] PREOP SCREENING [id number] 08/21/2017 09:00:00 PEN Preadmit PTEE VALLEJO MD [facility] CATARACT LEFT EYE [id number] 08/04/2014 10:14:00 Document Registration [id number] 04/14/2012 16:29:00 Document Registration [id number] 06/03/2011 08:00:00 Document Registration [id number] 04/03/2011 20:12:00 Document Registration [id number] 03/04/2011 08:05:00 Document Registration [id number] 10/26/2006 14:30:00 Document Registration
== END 2017-08-21 09:27 | disposition home or self-care (01) ==
LOC: SDC 07:12
PROVIDERS: ATTEND Specialist
DX: H25.9 Unspecified age-related cataract (principal); E11.36 Type 2 diabetes mellitus with diabetic cataract; I10 Essential (primary) hypertension; J45.909 Unspecified asthma, uncomplicated; M19.91 Primary osteoarthritis, unspecified site; Z87.891 Personal history of nicotine dependence; Z79.4 Long term (current) use of insulin; Z79.82 Long term (current) use of aspirin; Z79.899 Other long term (current) drug therapy
CPT/HCPCS: 82962

== ENCOUNTER → 2017-10-02 | Outpatient (CLI) | payer MEDICARE ==
--- NOTE | 2017-10-02 12:01 | Diagnostic Imaging Report ---
Indication: Fall with right ankle injury. Time of exam 12:01 PM 3 views of the right ankle were obtained. The alignment is normal. Ankle mortise is well maintained. Talar dome is smooth. There are multiple well-corticated osseous densities adjacent to the medial malleolus consistent with old avulsions. No acute fracture is identified. A large posterior and plantar calcaneal spurs are present. Vascular calcifications are seen. Impression: Chronic changes. No acute bony abnormality is detected. Dictated by: Dictated on workstation # [id number]
--- NOTE | 2017-10-02 12:02 | Diagnostic Imaging Report ---
INDICATION: Fall with right foot injury. TIME OF EXAM: 12:02 p.m. FINDINGS: Three views of the right foot were obtained. The metatarsals are intact. The phalanges are intact. Midfoot and hindfoot are unremarkable apart from large plantar and posterior calcaneal spurs. No fractures are seen. IMPRESSION: No acute bony abnormality is detected. Dictated by: Dictated on workstation # [id number]
--- NOTE | 2017-10-02 12:06 | Diagnostic Imaging Report ---
INDICATION: Fall with right knee injury. TIME OF EXAM: 11:58 a.m. Three views of the right knee were obtained. There is an obliquely oriented fracture through the proximal right fibula in the region of the fibular neck. Very slight medial displacement of the distal fracture fragment is seen. No angulation is identified. The distal femur, patella and proximal tibia appear intact. There are medial and patellofemoral compartmental degenerative changes noted. The lateral view does suggest a lipohemarthrosis. This can be seen with intracapsular articular fractures. No other fractures are detected. Extensive vascular calcification in the femoral and popliteal arteries is noted. IMPRESSION: 1. Obliquely oriented proximal fibular fracture. 2. Findings suggestive of lipohemarthrosis in the suprapatellar location, considerations above. CT of the right knee could be performed for further evaluation. Dictated by: Dictated on workstation # [id number]
== END ==
LOC: RAD 11:27
PROVIDERS: ATTEND Nurse Practitioner Family
DX: S82.431A Displaced oblique fracture of shaft of right fibula, initial encounter for closed fracture (principal); S99.911A Unspecified injury of right ankle, initial encounter; S99.921A Unspecified injury of right foot, initial encounter; W19.XXXA Unspecified fall, initial encounter
CPT/HCPCS: 73562; 73610; 73630

== ENCOUNTER → 2018-04-30 | Outpatient (CLI) | payer MEDICARE ==
[~2018-04-30] MED LIST changes: -AMLO5TAB2 PO; +AMLO5TAB7 PO; -LOSA25TA21 PO; +LOSA25TA6 PO; -ROSU10TA26 PO; +ROSU10TA27 PO; -SPIR25TA3 PO; +SPIR25TA5 PO
--- NOTE | 2018-04-30 15:10 | Diagnostic Imaging Report ---
PATIENT HISTORY: COUGH, SHORT OF BREATH. TECHNIQUE: Two views of the chest. COMPARISON: 07/23/2016. FINDINGS: Lung volumes are normal. No focal consolidation is seen. The cardiac silhouette appears stable in size. There is tortuosity of the aorta. Oval hyperdensity overlying the medial left clavicle may be external to the patient. There are degenerative changes in the thoracic spine with flowing anterior osteophytes consistent with diffuse idiopathic skeletal hyperostosis. IMPRESSION: 1. No acute pulmonary abnormality seen. Dictated by: Dictated on workstation # [id number]
== END ==
LOC: RAD 14:39
PROVIDERS: ATTEND Nurse Practitioner Family
DX: R06.02 Shortness of breath (principal); R05 Cough
CPT/HCPCS: 71046

== ENCOUNTER → 2018-11-29 | Outpatient (CLI) | payer MEDICARE ==
[~2018-11-29] MED LIST changes: -AMLO5TAB7 PO; +AMLO5TAB9 PO; +LOSA25TA41 PO; -LOSA25TA6 PO; -ROSU10TA PO; +ROSU10TA22 PO
== END ==
LOC: CARD 11:42
PROVIDERS: ATTEND Internal Medicine Cardiovascular Disease
DX: R07.89 Other chest pain (principal); I10 Essential (primary) hypertension; J45.909 Unspecified asthma, uncomplicated; E78.2 Mixed hyperlipidemia; I49.3 Ventricular premature depolarization; M53.3 Sacrococcygeal disorders, not elsewhere classified; I07.1 Rheumatic tricuspid insufficiency
CPT/HCPCS: 93306

== ENCOUNTER 2019-01-16 07:06 | Emergency (ER) | payer MEDICARE ==
[~2019-01-16] VITALS: Ht 162.6 cm; Wt 104.3 kg
[~2019-01-16 07:06] MED LIST changes: -ROSU10TA27 PO; +ROSU10TA28 PO
[2019-01-16 07:24] LABS: BASOPHILS % (AUTO) 1 % (0-10); EOSINOPHILS # (AUTO) 0.2 10^3/uL (0.0-0.3); EOSINOPHILS % (AUTO) 2 % (0-10); HEMATOCRIT 41 % (35-52); HEMOGLOBIN 14.2 G/DL (11.5-16.0); LYMPHOCYTES % (AUTO) 25 % (12-44); MEAN CORPUSCULAR HEMOGLOBIN 34 PG (25-34); MEAN CORPUSCULAR HGB CONC 35 G/DL (32-36); MEAN CORPUSCULAR VOLUME 97 FL (80-99); MEAN PLATELET VOLUME 9.8 FL (7.4-10.4); MONOCYTES % (AUTO) 13 % (0-12); NEUTROPHILS # (AUTO) 4.6 X 10^3 (1.8-7.8); NEUTROPHILS % (AUTO) 59 % (42-75); PLATELET COUNT 158 10^3/uL (130-400); RED CELL DISTRIBUTION WIDTH 12.3 % (10.0-14.5); WHITE BLOOD COUNT 7.8 10^3/uL (4.3-11.0)
--- NOTE | 2019-01-16 07:26 | ED General ---
General Chief Complaint: Dizziness/Syncope Stated Complaint: FALL Nursing Triage Note: PT TO ROOM 07 VIA EMS FOR CO VERTIGO THAT LED TO A FALL THIS AM. PT CO NO CHEST PAIN OR SOA. Nursing Sepsis Screen: No Definite Risk Source of Information: Patient, Spouse History of Present Illness Date Seen by Provider: Jan 16, 2019 Time Seen by Provider: 07:07 Initial Comments PT ARRIVES VIA EMS FROM HOME NO ACCUCHECK OR IV BY EMS STATES SHE HAS HAD VERTIGO SINCE YESTERDAY WOKE UP THIS AM, AND TRIED TO GET OUT OF BED AT 0600 AND LEFT LEG WOULD NOT HOLD HER UP, AND SHE WENT DOWN TO THE FLOOR, ONTO HER BUTTOCKS PT DENIES ANY PAIN ANYWHERE DID NOT HIT HEAD AND NO LOSS OF CONSCIOUSNESS PT C/O INCREASED NUMBNESS TO LEFT LEG--PT HAS PERIPHERAL NEUROPATHY AND BOTH FEET HAVE DECREASED SENSATION, BUT STATES HER WHOLE LEFT LEG NOW FEELS WEAK, AND HAS LESS SENSATION TO THE REST OF HER LEFT LEG, COMPARED TO RIGHT NO WEAKNESS OR PARESTHESIAS TO LEFT ARM NO FACIAL WEAKNESS OR NUMBNESS NO HEADACHE NO VISION CHANGES NO CHEST PAIN NO SHORTNESS OF BREATH NO PALPITATIONS NO HISTORY OF SIMILAR PT STATES SHE HAS HAD VERTIGO ON OCCASION, BUT HAS NEVER HAD LEG/EXTREMITY WEAKNESS AND NO HISTORY OF STROKE PT HAS EXTENSIVE CORONARY ARTERY DISEASE STATES SHE FELT FINE WHEN SHE WENT TO BED PT IS INSULIN DEPENDENT DIABETIC, BUT HAS NOT CHECKED HER BLOOD SUGAR TODAY, AND WAS NOT CHECKED BY EMS NO IV BY EMS OR INDICATION OF STROKE ACTIVATION BY EMS PT HAS NOT TAKEN ANY OF HER MEDICATIONS TODAY. REPORTS THAT PT IS ESSENTIALLY WHEELCHAIR BOUND DUE TO CHRONIC BACK PAIN AND CHRONIC RIGHT KNEE PAIN, AND OFTEN IS IN BED, AND HAS CHRONIC GENERALIZED WEAKNESS FROM LACK OF ACTIVITY. PCP:DR. MEHTA [employer]CHOOL [employer] MECHANIC: DR MASSEY Allergies and Home Medications Allergies Coded Allergies: Sulfa (Sulfonamide Antibiotics) (Unverified Allergy, Unknown, HIVES, SOB, 10/27/06) morphine (Unverified Allergy, Unknown, UNKNOWN, 10/27/06) propoxyphene (Unverified Allergy, Unknown, UNKNOWN, 10/27/06) erythromycin base (Unverified Adverse Reaction, Unknown, SICK TO HER STOMACH, CRAMPS, VOMITING, 10/27/06) Home Medications Albuterol Sulfate 2.5 Mg/3 Ml Vial.neb, 2.5 MG IH Q6H PRN for WHEEZING, (Reported) Amlodipine Besylate 5 Mg Tablet, 5 MG PO DAILY, (Reported) Aspirin 81 Mg Tablet.dr, 81 MG PO DAILY, (Reported) Atenolol 50 Mg Tablet, 50 MG PO DAILY, (Reported) Cetirizine HCl 10 Mg Tablet, 10 MG PO DAILY PRN for allergies, (Reported) Cholecalciferol (Vitamin D3) 1,000 Unit Tablet, 2,000 UNIT PO DAILY, (Reported) take 2 (1000mg) tabs Diphenhydramine HCl 50 Mg Capsule, 50 MG PO Q6H PRN for sinus congestion, (Reported) Furosemide 20 Mg Tablet, 20 MG PO DAILY, (Reported) Hydrochlorothiazide 25 Mg Tablet, 25 MG PO DAILY, (Reported) Hydrocodone/Acetaminophen 1 Each Tablet, 1 EACH PO BID, (Reported) Insulin Aspart 100 Unit/1 Ml Susp, 17 UNIT SQ TIDAC, (Reported) Insulin Detemir 100 Unit/1 Ml Insuln.pen, 10 UNIT SQ DAILY, (Reported) Losartan Potassium 25 Mg Tablet, 25 MG PO DAILY, (Reported) Montelukast Sodium 10 Mg Tablet, 10 MG PO HS PRN for allergies, (Reported) Dighton-3/Dha/Epa/Fish Oil 1 Each Capsule, 1 EACH PO TID, (Reported) Ranolazine 1,000 Mg Tab.er.12h, 1,000 MG PO BID, (Reported) Rosuvastatin Calcium 10 Mg Tablet, 10 MG PO HS, (Reported) Spironolactone 25 Mg Tablet, 25 MG PO DAILY, (Reported) Patient Home Medication List Home Medication List Reviewed: Yes Review of Systems Review of Systems Constitutional: see HPI; No diaphoresis; dizziness EENTM: no symptoms reported Respiratory: cough (INCREASED COUGH WITH CLEAR SPUTUM LATELY) Cardiovascular: no symptoms reported Gastrointestinal: other (HAD EGD A COUPLE OF WEEKS AGO BY DR. METZGER--"HE SAID I HAD 4 ULCERS" ) Genitourinary: no symptoms reported Musculoskeletal: see HPI, other (CHRONIC RIGHT KNEE PAIN--DOES NOT NORMALLY HAVE PROBLEMS WITH LEFT KNEE) Skin: no symptoms reported Psychiatric/Neurological: See HPI Hematologic/Lymphatic: No Symptoms Reported Immunological/Allergic: no symptoms reported Past Rzsarkf-Qrvqzi-Hudnao Hx Past Med/Social Hx: Reviewed and Corrections made Patient Social History Alcohol Use: Occasionally Uses Recreational Drug Use: No Smoking Status: Never a Smoker Recent Foreign Travel: No Contact w/Someone Who Travel: No Recent Infectious Disease Expo: No Immunizations Up To Date Date of Pneumonia Vaccine: November 01, 2008 Date of Influenza Vaccine: Mar 18, 2016 Past Medical History Surgeries: Yes (CARDIAC CATHS WITH MULTIPLE INTERVENTIONS/ATTEMPED INTERVENTIONS HERE AND AT ; LUMBAR LAMINECTOMY AND FUSION 2006; BILATERAL CATARACTS; KNEE SCOPE; BIOPSY OF SPINE LESION.; EGD 12/2018 ) Adenoidectomy (CARDIAC CATHS WITH MULTIPLE INTERVENTIONS/ATTEMPED INTERVENTIONS HERE AND AT ; LUMBAR FUSION; BILATERAL CATARACTS), Appendectomy, Cardiac, Eye Surgery, Gallbladder, Hysterectomy, Oophorectomy, Orthopedic, Tonsillectomy Respiratory: Yes COPD Cardiac: Yes Coronary Artery Disease, High Cholesterol, Hypertension Neurological: Yes (PERIPHERAL NEUROPATHY) Neuropathy Reproductive Disorders: Yes (ENDOMETRIAL CANCER--S/P HYST/BSO) 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 ) Degenerate Disk Disease, Arthritis, Back Injury, Chronic Back Pain Endocrine: Yes Diabetes, Insulin dep HEENT: Yes Cataract Loss of Vision: Denies Cancer: Yes (ENDOMETRIAL CANCER) Uterine Did You Recieve Any Treatments: Yes What Type of Treatment Did You: Surgical Intervention Psychosocial: No Integumentary: No Blood Disorders: No Family Medical History Patient reports no known family medical history. Physical Exam Vital Signs Capillary Refill : Less Than 3 Seconds Height, Weight, BMI Height: 5'4.00" Weight: 230lbs. 0.0oz. [id number]; 38.5 BMI Method:Stated General Appearance: No Apparent Distress, Obese HEENT: PERRL/EOMI Neck: Full Range of Motion, Normal Inspection, Non Tender, Supple; No Carotid Bruit, No JVD Respiratory: Normal Breath Sounds, No Accessory Muscle Use, No Respiratory Distress Cardiovascular: Regular Rate, Rhythm, No Murmur, Normal Peripheral Pulses Gastrointestinal: Non Tender, Soft Extremity: Normal Capillary Refill, Non Tender, Other (TRACE TO 1+ EDEMA ON LEFT. ) Neurologic/Psychiatric: Alert, Oriented x3, Other (DECREASED SENSATION TO BOTH FEET--PT WITH HISTORY OF PERIPHERAL NEUROPATHY. HAS MILDLY DECREASED SENSATION TO REMAINDER OF LEFT LEG. LEFT LEG WITH SIGNIFICATN WEAKNESS--UNABLE TO RAISE LEFT LEG OFF BED, CAN WIGGLE TOES. ARM STRENGTH / RN HOME CARE STRENGTH IS EQUAL WITH NO PRONATOR DRIFT. NORMAL FINGER TO NOSE. UNABLE TO PERFORM HEEL TO ROSE. RIGHT LEG HAS SOME GENERALIZED WEAKNESS, BUT ABLE TO LIFT IT OFF BED AND HOLD FOR SEVERAL SECONDS. ) Skin: Normal Color, Warm/Dry; No Rash Progress/Results/Core Measures Suspected Sepsis Recent Fever Within 48 Hours: No Infection Criteria Present: None New/Unexplained Altered Menta: No Sepsis Screen: No Definite Risk SIRS Temperature:98.3 Pulse: 49 Respiratory Rate: 15 Blood Pressure 108 /56 Mean: 73 Results/Orders Lab Results My Orders Medications Given in ED Vital Signs/I&O Capillary Refill : Less Than 3 Seconds Blood Pressure Mean: 73 Progress Note : Progress Note O2 SATS 90-92% ON ROOM AIR--UP TO MID 90'S ON O2 AT 2L/NC ECG Initial ECG Impression Date: Jan 16, 2019 Initial ECG Impression Time: 07:26 Initial ECG Rate: 49 Initial ECG Rhythm: S.Zachary (RBBB, LAFB) Initial ECG Comparisson: Unchanged Diagnostic Imaging Comments CXR--MILD VASCULAR CONGESTION AND CARDIOMEGALY, PER RADIOLOGIST REPORT AT 0802 CT HEAD--NO ACUTE PROCESS, PER RADIOLOGIST REPORT AT 0803 CT ANGIOGRAM HEAD/NECK--SCATTED ATHEROSCLEROTIC CHANGES IN CAROTID AND VERTEBRAL ARTERIES WITH NO HEMODYNAMIC DISEASE. MAX STENOSIS 30%. SOFT TISSUE MASS IN LEFT CAROTID BIFURCATION--POSSIBLE CAROTID BODY TUMOR--PER RADIOLOGIST REPORT AT 0910 Reviewed: Reviewed by Wy Departure Communication (Admissions) 0912--ATTEMPTING TO CONTACT DR. SEGAL, HOSPITALIST. NO ANSWER ON CELL OR HOME PHONE [phone]--SPOKE WITH DR. SEGAL, HE ADVISES THAT THERE IS NO MRI AVAILABLE UNTIL 01/24/19. HE ADVISES TRANSFER TO HIGHER LEVEL OF CARE 0934--CALLED DARNE[facility] PRIETO HOSPITALIST 0945--SPOKE WITH DR. DICK, ACCEPTS PT FOR ADMIT/TRANSFER Impression Primary Impression: Vertigo Additional Impressions: Left leg weakness IDDM (insulin dependent diabetes mellitus) HTN (hypertension) Abnormal finding on CT scan Disposition: XFER SHT-TRM HOSP Condition: Stable Transfer Transfer Facility: [facility] Method of Transfer: EMS Departure-Patient Inst. Referrals: KARY MEHTA MD (PCP/Family) Primary Care Physician MAHOGANY SANTAMARIA DO Jan 16, 2019 07:26
[2019-01-16 07:42] LABS: ALANINE AMINOTRANSFERASE 11 U/L (0-55); ALBUMIN 3.6 GM/DL (3.2-4.5); ALKALINE PHOSPHATASE 56 U/L (40-136); BILIRUBIN,TOTAL 0.8 MG/DL (0.1-1.0); BUN/CREATININE RATIO 13; CALCIUM 9.4 MG/DL (8.5-10.1); CARBON DIOXIDE 23 MMOL/L (21-32); CHLORIDE 97 MMOL/L (98-107); CREATININE SERUM 1.05 MG/DL (0.60-1.30); GFR ESTIMATED 51; GLUCOSE 102 MG/DL (70-105); POTASSIUM 3.8 MMOL/L (3.6-5.0); SODIUM 134 MMOL/L (135-145); TOTAL PROTEIN 6.2 GM/DL (6.4-8.2)
[2019-01-16 07:44] LABS: FIBRIN DEGRADATION PRODUCTS 0.83 UG/ML (0.00-0.49); INR 1.1 (0.8-1.4); PROTHROMBIN TIME PATIENT 14.2 SEC (12.2-14.7)
[2019-01-16] MEDS ORDERED: ONDANSETRON 4 MG/2 ML (SDV) Z0FRAN ONE (07:53)
[2019-01-16] MEDS ORDERED: ONDANSETRON 4 MG/2 ML (SDV) Z0FRAN IVP ONE (08:00)
--- NOTE | 2019-01-16 08:00 | Diagnostic Imaging Report ---
INDICATION: Dizziness, dyspnea. COMPARISON: 04/30/2018. DISCUSSION: Single portable upright view of the chest was obtained. Mild cardiomegaly is noted. Central venous congestion is present. No giuliano failure. No focal consolidation, pleural fluid, or pneumothorax. IMPRESSION: 1. Mild cardiomegaly with central venous congestion. Dictated by: Dictated on workstation # [id number]
--- NOTE | 2019-01-16 08:01 | Diagnostic Imaging Report ---
PROCEDURE: CT head wo r/o stroke. TECHNIQUE: Multiple contiguous axial images were obtained through the brain without the use of intravenous contrast. Auto Exposure Controls were utilized during the CT exam to meet ALARA standards for radiation dose reduction. INDICATION: Dizziness. Altered mental status. FINDINGS: The ventricles and cortical gyral pattern are normal. There is no intracranial hemorrhage. There is no mass effect. No extra-axial fluid collection. Basal cisterns are clear. Mastoid air cells and paranasal sinuses are aerated and clear. No calvarial fracture. IMPRESSION: Negative CT head without contrast. Dictated by: Dictated on workstation # [id number]
--- NOTE | 2019-01-16 08:01 | NUR ---
PT RESTING IN BED. HEAD OF BED LOWERED PER PT REQUEST TO HELP WITH BACK PAIN.
[2019-01-16] MEDS ORDERED: NS IV 1000 ML 1,000 ML IV SCH (08:04)
[2019-01-16] MEDS ORDERED: FUROSEMIDE 40 MG/4 ML INJ (LASIX) IVP ONE (08:15)
[2019-01-16] MEDS ORDERED: NS 100 ML (IVPB) BAG IV ONE (08:45)
[2019-01-16] MEDS ORDERED: HOLD METFORMIN - RECEIVED CONTRAST 20 ML VIAL IV SCH (08:45)
[2019-01-16] MEDS ORDERED: IOHEXOL 350 MG/ML 100 ML (OMNIPAQUE 350) VIAL IV ONE (08:45)
--- NOTE | 2019-01-16 08:53 | NUR ---
IN ROOM WITH PT. PT AND STATE THE THERE IS NOTHING THIS RN CAN DO FOR THEM AT THIS TIME. PT INSTRUCTED TO USE CALL LIGHT IF SHE NEEDS ANYTHING.
--- NOTE | 2019-01-16 09:01 | Diagnostic Imaging Report ---
PROCEDURE: CT angiography of the head and CT angiography of the neck with and without contrast. TECHNIQUE: Contiguous noncontrast images were obtained from the skull base through the vertex. After intravenous contrast administration, helical CT angiography of the neck was performed. Source data was reformatted into 3D MIP projections. Delayed post contrast acquisition was also obtained. Auto Exposure Controls were utilized during the CT exam to meet ALARA standards for radiation dose reduction. INDICATION: Dizziness. Altered mental status. FINDINGS: CT angiography of the head. There is normal enhancement of the intracranial arteries. Both vertebral arteries supply the basilar artery. Both internal carotid arteries are widely patent. There is no evidence of occlusive disease or spasm of the arteries. No evidence of aneurysm. There are no enhancing masses. The middle cerebral arteries are well opacified throughout the sylvian fissure. CT angiography of the neck: Good opacification of the carotid and vertebral arteries with normal takeoff demonstrated. There is scattered atherosclerotic disease within the aorta and carotid arteries. No hemodynamic changes are demonstrated. Maximal stenosis estimated at approximately 30% within the internal carotid arteries bilaterally. Minimal atherosclerotic change noted in the proximal left vertebral artery. Vertebral arteries are symmetrical in appearance. There is an enhancing soft tissue mass measuring 10 mm within the carotid bifurcation on the left. This may represent a carotid body tumor. IMPRESSION: 1. Scattered atherosclerotic changes in the carotid and vertebral arteries with no hemodynamic disease. Maximal stenosis estimated approximately 30%. 2. There does appear to be an enhancing soft tissue mass measuring 10 mm in the carotid bifurcation on the left. Carotid body tumor would be a consideration. Dictated by: Dictated on workstation # [id number]
[2019-01-16 09:07] LABS: BILIRUBIN,URINE NEGATIVE (NEGATIVE); CLARITY,URINE SLIGHTLY CLOUDY; COLOR,URINE YELLOW; GLUCOSE, URINE (UA) NEGATIVE (NEGATIVE); KETONES,URINE NEGATIVE (NEGATIVE); LEUKOCYTE ESTERASE ,URINE 3+ (NEGATIVE); NITRITE,URINE POSITIVE (NEGATIVE); PH,URINE 6.5 (5-9); PROTEIN,URINE 2+ (NEGATIVE); UROBILINOGEN,URINE NORMAL (NORMAL)
[2019-01-16 09:14] LABS: BACTERIA,URINE LARGE /HPF; WBC,URINE TNTC /HPF
[2019-01-16 09:15] LABS: SQUAMOUS EPITHELIAL CELL,UR RARE /HPF
[2019-01-16] MEDS ORDERED: cefTRIAXone FOR IV USE 1,000 MG in WATER (STERILE) FOR INJECTION 10 ML IV ONE (09:45)
--- NOTE | 2019-01-16 09:51 | NUR ---
CC SHIFT CAPTAIN AND DISPATCH NOTIFIED OF TRANSFER. DAVONTE IN CT NOTIFIED OF NEEDING IMAGES CLOUDED TO [place].
--- NOTE | 2019-01-16 10:16 | NUR ---
REPORT CALLED TO AMILCAR MONET AT [facility]
[2019-01-16 10:48] VITALS: BP 126/63
== END 2019-01-16 10:48 | disposition short-term general hospital (02) ==
LOC: EDUNIT# 07:06 → ER 07:07
DX: R42 Dizziness and giddiness (principal); R29.898 Other symptoms and signs involving the musculoskeletal system; E11.42 Type 2 diabetes mellitus with diabetic polyneuropathy; I10 Essential (primary) hypertension; R93.89 Abnormal findings on diagnostic imaging of other specified body structures; J44.9 Chronic obstructive pulmonary disease, unspecified; I25.10 Atherosclerotic heart disease of native coronary artery without angina pectoris; E78.00 Pure hypercholesterolemia, unspecified; Z95.9 Presence of cardiac and vascular implant and graft, unspecified; Z85.42 Personal history of malignant neoplasm of other parts of uterus; Z90.89 Acquired absence of other organs; Z90.49 Acquired absence of other specified parts of digestive tract; Z90.710 Acquired absence of both cervix and uterus; Z90.722 Acquired absence of ovaries, bilateral; Z79.82 Long term (current) use of aspirin; Z79.4 Long term (current) use of insulin; Z88.2 Allergy status to sulfonamides; Z88.5 Allergy status to narcotic agent; Z88.1 Allergy status to other antibiotic agents; Z88.8 Allergy status to other drugs, medicaments and biological substances
CPT/HCPCS: 36415; 51702; 70450; 70496; 70498; 71045; 80053; 81000; 82962; 83880; 84484; 85025; 85379; 85610; 85730; 87077; 87088; 87186; 93005; 93041; 96361; 96374; 96375

== ENCOUNTER 2019-04-09 11:21 | Inpatient (IN) | payer MEDICARE ==
[~2019-04-09] VITALS: Ht 162.6 cm; Wt 103.4 kg
--- NOTE | 2019-04-09 11:41 | ED General ---
General Chief Complaint: Trauma-Non Activation Stated Complaint: FALL Source of Information: Patient Exam Limitations: No Limitations (KING WELLER STUDENT) History of Present Illness Date Seen by Provider: Apr 09, 2019 Time Seen by Provider: 11:30 Initial Comments Patient presents to the ED today with complaints of worsening weakness and fatigue. Today, she fell twice at her home before EMS was finally called. She denies hitting her head, loss of consciousness or a syncopal event prior to falling; she states she merely feels weak. She denies any other associated sym ptoms or pain. Timing/Duration: 4-6 Hours Severity: Mild Modifying Factors: improves with Rest Associated Systoms: Weakness (KING WELLER STUDENT) Timing/Duration: 4-6 Hours, Other (chronic over weeks to months and up to a year with worsening) Severity: Moderate Modifying Factors: improves with Rest Associated Systoms: No Chest Pain, No Cough, No Fever/Chills, No Nausea/Vomiting; Weakness (SASCHA QUIJANO MD) Allergies and Home Medications Allergies Coded Allergies: Sulfa (Sulfonamide Antibiotics) (Unverified Allergy, Unknown, HIVES, SOB, 10/27/06) morphine (Unverified Allergy, Unknown, UNKNOWN, 10/27/06) propoxyphene (Unverified Allergy, Unknown, UNKNOWN, 10/27/06) erythromycin base (Unverified Adverse Reaction, Unknown, SICK TO HER STOMACH, CRAMPS, VOMITING, 10/27/06) Home Medications Albuterol Sulfate 2.5 Mg/3 Ml Vial.neb, 2.5 MG IH Q6H PRN for WHEEZING, (Reported) Amlodipine Besylate 5 Mg Tablet, 5 MG PO DAILY, (Reported) Aspirin 81 Mg Tablet.dr, 81 MG PO DAILY, (Reported) Atenolol 50 Mg Tablet, 50 MG PO DAILY, (Reported) Cetirizine HCl 10 Mg Tablet, 10 MG PO DAILY PRN for allergies, (Reported) Cholecalciferol (Vitamin D3) 1,000 Unit Tablet, 2,000 UNIT PO DAILY, (Reported) take 2 (1000mg) tabs Diphenhydramine HCl 50 Mg Capsule, 50 MG PO Q6H PRN for sinus congestion, (Reported) Furosemide 20 Mg Tablet, 20 MG PO DAILY, (Reported) Hydrochlorothiazide 25 Mg Tablet, 25 MG PO DAILY, (Reported) Hydrocodone/Acetaminophen 1 Each Tablet, 1 EACH PO BID, (Reported) Insulin Aspart 100 Unit/1 Ml Susp, 17 UNIT SQ TIDAC, (Reported) Insulin Detemir 100 Unit/1 Ml Insuln.pen, 10 UNIT SQ DAILY, (Reported) Losartan Potassium 25 Mg Tablet, 25 MG PO DAILY, (Reported) Montelukast Sodium 10 Mg Tablet, 10 MG PO HS PRN for allergies, (Reported) [place]-3/Dha/Epa/Fish Oil 1 Each Capsule, 1 EACH PO TID, (Reported) Ranolazine 1,000 Mg Tab.er.12h, 1,000 MG PO BID, (Reported) Rosuvastatin Calcium 10 Mg Tablet, 10 MG PO HS, (Reported) Spironolactone 25 Mg Tablet, 25 MG PO DAILY, (Reported) Patient Home Medication List Home Medication List Reviewed: Yes (SASCHA QUIJANO MD) Review of Systems Review of Systems Constitutional: see HPI EENTM: no symptoms reported Respiratory: no symptoms reported Cardiovascular: no symptoms reported Gastrointestinal: no symptoms reported Genitourinary: no symptoms reported : No Musculoskeletal: see HPI Skin: no symptoms reported Psychiatric/Neurological: No Symptoms Reported Hematologic/Lymphatic: No Symptoms Reported Immunological/Allergic: no symptoms reported (KING WELLER) Constitutional: see HPI Cardiovascular: No chest pain, No edema, No palpitations Gastrointestinal: No diarrhea, No nausea, No vomiting Genitourinary: No dysuria, No pain; other (does have frequent urinary tract infections) Musculoskeletal: back pain, muscle weakness Skin: change in color; No lesions Psychiatric/Neurological: Denies Headache; Weakness (SASCHA QUIJANO MD) All Other Systems Reviewed Negative Unless Noted: Yes (SASCHA QUIJANO MD) Past Qobpejs-Rlrcdo-Lolkqn Hx Past Med/Social Hx: Reviewed Nursing Past Med/Soc Hx (SASCHA QUIJANO MD) Patient Social History 2nd Hand Smoke Exposure: No Recent Foreign Travel: No Contact w/Someone Who Travel: No Recent Hopitalizations: Yes (KING WELLER) Immunizations Up To Date Date of Pneumonia Vaccine: November 01, 2008 Date of Influenza Vaccine: Mar 18, 2016 (KING WELLER) Seasonal Allergies Seasonal Allergies: No (WELLER,KING PA STUDENT) Past Medical History Surgeries: Yes Adenoidectomy, Appendectomy, Cardiac, Eye Surgery, Gallbladder, Hysterectomy, Oophorectomy, Orthopedic, Tonsillectomy Respiratory: Yes COPD Cardiac: Yes Coronary Artery Disease, High Cholesterol, Hypertension Neurological: Yes (PERIPHERAL NEUROPATHY) Neuropathy Reproductive Disorders: Yes (ENDOMETRIAL CANCER--S/P HYST/BSO) 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 SPRAYER History: Hysterectomy, Menopausal Genitourinary: No Gastrointestinal: Yes (HEPATITIS CHILD) Hepatitis, Ulcer Musculoskeletal: Yes Degenerate Disk Disease, Arthritis, Back Injury, Chronic Back Pain Endocrine: Yes Diabetes, Insulin dep HEENT: Yes Cataract Loss of Vision: Denies Hearing Impairment: Denies Cancer: Yes (ENDOMETRIAL CANCER) Uterine Did You Recieve Any Treatments: Yes What Type of Treatment Did You: Surgical Intervention Psychosocial: No Integumentary: No Blood Disorders: No (KING WELLER STUDENT) Family Medical History Reviewed Nursing Family Hx (SASCHA QUIJANO MD) Patient reports no known family medical history. Physical Exam Vital Signs Vital Signs - First Documented 04/09/19 11:23 Temp 35.6 Pulse 61 Resp 18 B/P (MAP) 125/56 (79) Pulse Ox 97 O2 Delivery Room Air (SASCHA QUIJANO MD) Vital Signs Capillary Refill : (KING WELLER STUDENT) Height, Weight, BMI Height: 5'4.00" Weight: 230lbs. 0.0oz. 104.089278sh; 38.5 BMI Method:Stated General Appearance: Obese Eyes: Bilateral Eye Normal Inspection, Bilateral Eye PERRL, Bilateral Eye EOMI HEENT: PERRL/EOMI, Pharynx Normal Respiratory: Chest Non Tender, Lungs Clear, Normal Breath Sounds, No Accessory Muscle Use, No Respiratory Distress Cardiovascular: Regular Rate, Rhythm, No Edema, No Gallop, No JVD, No Murmur, Normal Peripheral Pulses Gastrointestinal: Normal Bowel Sounds, No Organomegaly, No Pulsatile Mass, Non Tender, Soft Back: Normal Inspection, No CVA Tenderness, No Vertebral Tenderness Extremity: Non Tender, No Calf Tenderness, No Pedal Edema Neurologic/Psychiatric: Alert, Oriented x3, No Motor/Sensory Deficits Skin: Normal Color, Warm/Dry Lymphatic: No Adenopathy (KING WELLER STUDENT) General Appearance: No Apparent Distress, WD/WN HEENT: PERRL/EOMI, Pharynx Normal Neck: Non Tender, Supple Respiratory: Lungs Clear, Normal Breath Sounds Cardiovascular: Regular Rate, Rhythm, No Murmur Back: Normal Inspection, No CVA Tenderness, Other (tender along the low spine throughout the lumbar region) Neurologic/Psychiatric: Alert, Oriented x3, Motor Weakness (bilateral lower extremities), Other (retains sensation bilateral lower extremities) Skin: Warm/Dry, Ecchymosis (ecchymotic lesions of the arms) (SASCHA QUIJANO MD) Focused Exam Lactate Level 04/09/19 14:05: (SASCHA QUIJANO MD) Lactic Acid Level Laboratory Tests Test 04/09/19 14:05 (SASCHA QUIJANO MD) Progress/Results/Core Measures Suspected Sepsis SIRS Temperature: Pulse: Respiratory Rate: Blood Pressure / Mean: (KING WELLER STUDENT) Results/Orders Lab Results Laboratory Tests Test 04/09/19 11:30 04/09/19 12:46 04/09/19 14:05 Range/Units White Blood Count 7.1 4.3-11.0 10^3/uL Red Blood Count 4.49 4.35-5.85 10^6/uL Hemoglobin 15.2 11.5-16.0 G/DL Hematocrit 43 35-52 % Mean Corpuscular Volume 97 80-99 FL Mean Corpuscular Hemoglobin 34 25-34 PG Mean Corpuscular Hemoglobin Concent 35 32-36 G/DL Red Cell Distribution Width 12.7 10.0-14.5 % Platelet Count 148 130-400 10^3/uL Mean Platelet Volume 10.8 H 7.4-10.4 FL Neutrophils (%) (Auto) 71 42-75 % Lymphocytes (%) (Auto) 19 12-44 % Monocytes (%) (Auto) 8 0-12 % Eosinophils (%) (Auto) 2 0-10 % Basophils (%) (Auto) 0 0-10 % Neutrophils # (Auto) 5.0 1.8-7.8 X 10^3 Lymphocytes # (Auto) 1.4 1.0-4.0 X 10^3 Monocytes # (Auto) 0.5 0.0-1.0 X 10^3 Eosinophils # (Auto) 0.2 0.0-0.3 10^3/uL Basophils # (Auto) 0.0 0.0-0.1 10^3/uL Sodium Level 135 135-145 MMOL/L Potassium Level 4.1 3.6-5.0 MMOL/L Chloride Level 101 98-107 MMOL/L Carbon Dioxide Level 20 L 21-32 MMOL/L Anion Gap 14 5-14 MMOL/L Blood Urea Nitrogen 15 7-18 MG/DL Creatinine 0.88 0.60-1.30 MG/DL Estimat Glomerular Filtration Rate > 60 BUN/Creatinine Ratio 17 Glucose Level 153 H 70-105 MG/DL Calcium Level 8.2 L 8.5-10.1 MG/DL Corrected Calcium 8.8 8.5-10.1 MG/DL Total Bilirubin 0.7 0.1-1.0 MG/DL Aspartate Amino Transf (AST/SGOT) 35 H 5-34 U/L Alanine Aminotransferase (ALT/SGPT) 19 0-55 U/L Alkaline Phosphatase 43 40-136 U/L Troponin I < 0.028 <0.028 NG/ML C-Reactive Protein High Sensitivity 0.08 0.00-0.50 MG/DL Total Protein 5.6 L 6.4-8.2 GM/DL Albumin 3.3 3.2-4.5 GM/DL Urine Color MARSHAL H Urine Clarity CLEAR Urine pH 5 5-[address] [place] 1.025 H 1.016-1.022 Urine Protein 1+ H NEGATIVE Urine Glucose (UA) NEGATIVE NEGATIVE Urine Ketones NEGATIVE NEGATIVE Urine Nitrite NEGATIVE NEGATIVE Urine Bilirubin 1+ H NEGATIVE Urine Urobilinogen 1 NORMAL MG/DL Urine Leukocyte Esterase 2+ H NEGATIVE Urine RBC (Auto) NEGATIVE NEGATIVE Urine RBC NONE /HPF Urine WBC 25-50 H /HPF Urine Crystals NONE /LPF Urine Bacteria MODERATE H /HPF Urine Casts NONE /LPF Urine Mucus MODERATE H /LPF Urine Culture Indicated YES (SASCHA QUIJANO MD) My Orders Orders - SASCHA QUIJANO MD Cbc With Automated Diff (04/09/19 11:52) Comprehensive Metabolic Panel (04/09/19 11:52) Hs C Reactive Protein (04/09/19 11:52) Troponin I (04/09/19 11:52) Ua Culture If Indicated (04/09/19 11:52) Chest 1 View, Ap/Pa Only (04/09/19 11:52) Ekg Tracing (04/09/19 11:52) Ed Iv/Invasive Line Start (04/09/19 11:52) Ct Head Wo (04/09/19 12:35) Ns Iv 500 Ml (Sodium Chloride 0.9%) (04/09/19 12:49) Dysphagia Screening Tool (04/09/19 12:49) Urine Culture (04/09/19 12:46) Lactic Acid Analyzer (04/09/19 13:47) Blood Culture (04/09/19 13:47) Pelvis (04/09/19 13:47) Ceftriaxone For Iv Use (Rocephin For I (04/09/19 14:00) (SASCHA QUIJANO MD) Medications Given in ED Current Medications Medications Dose Ordered Sig/Deepika Route Start Time Stop Time Status Last Admin Dose Admin Sodium Chloride 500 ml @ 0 mls/hr Q0M ONCE IV 04/09/19 12:49 04/09/19 12:51 DC 04/09/19 13:05 500 MLS/HR (SASCHA QUIJANO MD) Vital Signs/I&O 04/09/19 11:23 Temp 35.6 Pulse 61 Resp 18 B/P (MAP) 125/56 (79) Pulse Ox 97 O2 Delivery Room Air (SASCHA QUIJANO MD) Vital Signs/I&O Capillary Refill : (KING WELLER PA STUDENT) Progress Note : Progress Note I have seen and evaluated the patient and agree with above except as indicated. I have directed the plan of care. Patient is here with increasing weakness over quite some time with report of 2 falls today. Denies hitting her head. Denies injury from this. States her legs just sometimes don't work. She has become increasingly deconditioned over the last year. She does have a history of failed lumbar surgery from 2006 and has not been right since. Lives at home with her . Apparently she had gone to the bathroom and on the way back could not make it out of the bathroom without slumping over because her legs gave way. EMS was called at that time and evaluated her and she was doing better. This was around 5 AM. Afterwards she had another event and her legs gave out. She is not sure why she is feeling increasingly weak. She is okay when she is laying down. Currently she has movement of her legs although they are weak. She has been seen by Dr. Gonzalez in [place] regarding her lumbar spine and neck and there does not appear to be anything that needs to be done or can be done at this time. She's had success with back pain treatment with Dr. Otero previously after multiple injections but has returned to her chronic pain since that time. Plan is for labs, UA, chest x-ray, EKG and we will add CT of the head do to history of falls. I did discuss with the family regarding CT of the lumbar spine as we cannot get an MRI and we all agree that that does not seem to be indicated at this point. She's had recent MRIs and will follow-up with Dr. Gonzalez. We will determine if there is other underlying etiology for her increasing weakness. Normal saline 500 mL bolus ordered. Monitor patient. 1340: I did discuss the case with Dr. Rai as she does have findings consistent with urinary tract infection. Patient would benefit from admission for that and for rehydration. Patient also would benefit from evaluation for inpatient rehabilitation. Patient and family are in full agreement with this plan. Dr. Rai has asked for pelvic x-ray to rule out occult hip fracture. Patient has no pain but this seems reasonable given her lumbar spine issues. We have ordered pelvic x-ray as well as blood cultures and lactic acid. We will initiate Rocephin 1 g IV and admit. 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 Left axis deviation. No evidence of ST elevation HI. Similar to previous of 01/16/19. Interpreted by me. (SASCHA QUIJANO MD) Diagnostic Imaging Diagonstic Imaging: Xray Plain Films/CT/US/NM/MRI: chest Comments NAME: [facility] REC#: [id number] PT STATUS: REG ER : 1940 PHYSICIAN: SASCHA QUIJANO MD ADMIT DATE: 04/09/19/ER Signed Date of Exam: 04/09/19 CHEST 1 VIEW, AP/PA ONLY EXAMINATION: Portable erect AP chest at 1206 hours. INDICATION: Fell. FINDINGS: The mild cardiomegaly noted on the prior exam of 01/16/2019 is again evident and not significantly changed. The lungs are clear. There is no sign of failure, pneumonia or a pleural effusion. The mediastinum is not widened. The osseous structures are intact. IMPRESSION: There is no evidence for an acute cardiopulmonary abnormality. Dictated by: Dictated on workstation # [id number] Dict: 04/09/19 1212 Trans: 04/09/19 1243 Interpreted by: ALLISON FLAHERTY MD Electronically signed by: ALLISON FLAHERTY MD 04/09/19 1243 Diagonstic Imaging: CT Plain Films/CT/US/NM/MRI: head Comments [facility] [place], [place] NAME: STACYBENIGNO [employer] REC#: [id number] PT STATUS: REG ER : 1940 PHYSICIAN: SASCHA QUIJANO MD ADMIT DATE: 04/09/19/ER Draft Date of Exam:04/09/19 CT HEAD WO PROCEDURE: CT head without contrast. TECHNIQUE: Multiple contiguous axial images were obtained through the brain without the use of intravenous contrast. Auto Exposure Controls were utilized during the CT exam to meet ALARA standards for radiation dose reduction. INDICATION: Fall. FINDINGS: The ventricles are normal in size, shape and position. There is no acute parenchymal hemorrhage, edema or mass. There is no extra-axial mass or hemorrhage. IMPRESSION: No acute abnormality is seen. There is no significant change from 01/16/2019. Dictated on workstation # [id number] Dict: 04/09/19 1314 Trans: 04/09/19 1316 [facility] [id number] Interpreted by: KASH ZAMORANO MD Electronically signed by: Diagonstic Imaging: Xray Plain Films/CT/US/NM/MRI: pelvis Comments [facility] [place] [place] NAME: STACYBENIGNO [employer] REC#: [id number] PT STATUS: ADM IN : 1940 PHYSICIAN: SASCHA QUIJANO MD ADMIT DATE: 04/09/19/4TH Draft Date of Exam:04/09/19 PELVIS AP pelvis at 2:13. Indication: Fell. Single AP view of the pelvis is obtained. There is no fracture, dislocation or acute bony abnormality evident. There is moderate degenerative disease involving hip and sacroiliac joints. The degenerative changes seem similar to the stock unloader film from the CT abdomen/pelvis exam of 04/27/2015. The postsurgical changes involving the lower lumbar spine seen previously are partially visualized on this study and also seem stable. The soft tissues are unremarkable. Impression: There is no evidence for acute bony abnormality. Dictated on workstation # [id number] Dict: 04/09/19 1418 Trans: 04/09/19 1422 [facility] [id number] Interpreted by: ALLISON FLAHERTY MD Electronically signed by: (SASCHA QUIJANO MD) Departure Communication (Admissions) Time/Spoke to Admitting Phy: 13:30 (SASCHA QUIJANO MD) Impression Primary Impression: Urinary tract infection Qualified Codes: N30.00 - Acute cystitis without hematuria Additional Impression: Lower extremity weakness Qualified Codes: R29.898 - Other symptoms and signs involving the musculoskeletal system Disposition: 09 ADMITTED INPATIENT Condition: Stable Admissions Decision to Admit Reason: Admit from ER (General) Decision to Admit/Date: Apr 09, 2019 Time/Decision to Admit Time: 13:53 (SASCHA QUIJANO MD) Departure-Patient Inst. Referrals: KARY MEHTA MD (PCP/Family) Primary Care Physician KING WELLER STUDENT Apr 09, 2019 11:41 SASCHA QUIJANO MD Apr 09, 2019 13:18
[2019-04-09 12:02] LABS: BASOPHILS % (AUTO) 0 % (0-10); EOSINOPHILS # (AUTO) 0.2 10^3/uL (0.0-0.3); EOSINOPHILS % (AUTO) 2 % (0-10); HEMATOCRIT 43 % (35-52); HEMOGLOBIN 15.2 G/DL (11.5-16.0); LYMPHOCYTES # (AUTO) 1.4 X 10^3 (1.0-4.0); LYMPHOCYTES % (AUTO) 19 % (12-44); MEAN CORPUSCULAR HEMOGLOBIN 34 PG (25-34); MEAN CORPUSCULAR HGB CONC 35 G/DL (32-36); MEAN CORPUSCULAR VOLUME 97 FL (80-99); MEAN PLATELET VOLUME 10.8 FL (7.4-10.4); MONOCYTES # (AUTO) 0.5 X 10^3 (0.0-1.0); MONOCYTES % (AUTO) 8 % (0-12); NEUTROPHILS % (AUTO) 71 % (42-75); PLATELET COUNT 148 10^3/uL (130-400); RED CELL DISTRIBUTION WIDTH 12.7 % (10.0-14.5); WHITE BLOOD COUNT 7.1 10^3/uL (4.3-11.0)
--- NOTE | 2019-04-09 12:16 | Diagnostic Imaging Report ---
EXAMINATION: Portable erect AP chest at 1206 hours. INDICATION: Fell. FINDINGS: The mild cardiomegaly noted on the prior exam of 01/16/2019 is again evident and not significantly changed. The lungs are clear. There is no sign of failure, pneumonia or a pleural effusion. The mediastinum is not widened. The osseous structures are intact. IMPRESSION: There is no evidence for an acute cardiopulmonary abnormality. Dictated by: Dictated on workstation # [id number]
[2019-04-09 12:17] LABS: ALANINE AMINOTRANSFERASE 19 U/L (0-55); ALBUMIN 3.3 GM/DL (3.2-4.5); ALKALINE PHOSPHATASE 43 U/L (40-136); BILIRUBIN,TOTAL 0.7 MG/DL (0.1-1.0); BUN/CREATININE RATIO 17; CALCIUM 8.2 MG/DL (8.5-10.1); CARBON DIOXIDE 20 MMOL/L (21-32); CHLORIDE 101 MMOL/L (98-107); CREATININE SERUM 0.88 MG/DL (0.60-1.30); GFR ESTIMATED > 60; GLUCOSE 153 MG/DL (70-105); SODIUM 135 MMOL/L (135-145); TOTAL PROTEIN 5.6 GM/DL (6.4-8.2)
[2019-04-09 12:18] LABS: POTASSIUM 4.1 MMOL/L (3.6-5.0)
[2019-04-09] MEDS ORDERED: NS IV 500 ML 500 ML IV ONE (12:49)
[2019-04-09 12:52] LABS: BILIRUBIN,URINE 1+ (NEGATIVE); CLARITY,URINE CLEAR; COLOR,URINE AMBER; GLUCOSE, URINE (UA) NEGATIVE (NEGATIVE); KETONES,URINE NEGATIVE (NEGATIVE); LEUKOCYTE ESTERASE ,URINE 2+ (NEGATIVE); NITRITE,URINE NEGATIVE (NEGATIVE); PH,URINE 5 (5-9); PROTEIN,URINE 1+ (NEGATIVE)
[2019-04-09 12:59] LABS: WBC,URINE 25-50 /HPF
[2019-04-09 13:00] LABS: BACTERIA,URINE MODERATE /HPF
--- NOTE | 2019-04-09 13:17 | Diagnostic Imaging Report ---
PROCEDURE: CT head without contrast. TECHNIQUE: Multiple contiguous axial images were obtained through the brain without the use of intravenous contrast. Auto Exposure Controls were utilized during the CT exam to meet ALARA standards for radiation dose reduction. INDICATION: Fall. FINDINGS: The ventricles are normal in size, shape and position. There is no acute parenchymal hemorrhage, edema or mass. There is no extra-axial mass or hemorrhage. IMPRESSION: No acute abnormality is seen. There is no significant change from 01/16/2019. Dictated by: Dictated on workstation # [id number]
[2019-04-09] MEDS ORDERED: cefTRIAXone FOR IV USE 1,000 MG in WATER (STERILE) FOR INJECTION 10 ML IV ONE (14:00)
--- NOTE | 2019-04-09 14:00 | NUR ---
CALLED FOR BED
--- NOTE | 2019-04-09 14:22 | Diagnostic Imaging Report ---
AP pelvis at 2:13. Indication: Fell. Single AP view of the pelvis is obtained. There is no fracture, dislocation or acute bony abnormality evident. There is moderate degenerative disease involving hip and sacroiliac joints. The degenerative changes seem similar to the post splitter film from the CT abdomen/pelvis exam of 04/27/2015. The postsurgical changes involving the lower lumbar spine seen previously are partially visualized on this study and also seem stable. The soft tissues are unremarkable. Impression: There is no evidence for an acute bony abnormality. Dictated by: Dictated on workstation # [id number]
--- NOTE | 2019-04-09 14:30 | NUR ---
BENIGNO KUMAR admitted to room 406-1, with an admitting diagnosis of UTI, LOWER EXTREMITY WEAKNESS, on 04/09/19 from ED via STRETCHER, accompanied by ED STAFF AND .BENIGNO KUMAR introduced to surroundings, call light, bed controls, phone, TV, temperature control, lights, meal times, smoking policy, visitor policy, side rail policy, bathrooms and showers. Patient Rights given to patient in the handbook. BENIGNO KUMAR verbalizes understanding that [facility] is not responsible for the loss or damage to any personal effects or valuables that are kept in the patients possession during their hospitalization. The following Patient Care Plans were discussed with the PATIENT: Discharge Planning, UTI, IMPAIRED MOBILITY, and KNOWLEDGE DEFICIT. BENIGNO KUMAR verbalizes understanding of Interdisciplinary Patient Education. Patient and/or family were informed about the Rapid Response Team and its purpose.
[2019-04-09 14:56] VITALS: BP 125/58
[2019-04-09] MEDS ORDERED: CATHETER FLUSH 10 ML SYR IV PRN (15:00)
[2019-04-09] MEDS ORDERED: HYDROcodone/APAP 10 MG/325 MG (LORTAB) TAB PO PRN (15:00)
[2019-04-09 16:00] VITALS: BP 125/58
[2019-04-09] MEDS ORDERED: FLU QUADRIvalent (5+ YOA) 2019-2020 (AFLURIA) 0.5 ML IM ONE (16:00)
[2019-04-09] MEDS ORDERED: ATEN25TA PO (16:28)
[2019-04-09] MEDS ORDERED: DIPH-718 PO (16:28)
[2019-04-09] MEDS ORDERED: PANT40TA3 PO (16:28)
[2019-04-09] MEDS ORDERED: INSU100V5 SQ (16:36)
[2019-04-09] MEDS ORDERED: INSU100V16 SQ (16:36)
[2019-04-09] MEDS: NS IV 1000 ML 1,000 ML IV SCH (16:55)
[2019-04-09] MEDS ORDERED: PATIENT MAY USE OWN MEDS, ALL MC SCH (17:45)
[2019-04-09] MEDS ORDERED: RT-ALBUTEROL SULF 2.5 MG/3 ML PRE-MIX VIAL IH PRN (17:45)
--- NOTE | 2019-04-09 17:52 | NUR ---
CALLED DR CASAREZ. HOME MED REC IS DONE.
--- NOTE | 2019-04-09 18:15 | NUR ---
LEFT MESSAGE FOR DR CASAREZ OF DVT SCORE.
[2019-04-09 19:52] VITALS: BP 101/58
[2019-04-09] MEDS ORDERED: DIPHENHYDRAMINE HCL 50 MG PO SCH (21:00)
[2019-04-09] MEDS ORDERED: NON-FORMULARY MEDICATION 1 EA EA (Hydrochlorothiazide 25 MG) PO SCH (21:00)
[2019-04-09] MEDS: ATENOLOL 25 MG (TENORMIN) TAB PO SCH (21:00)
[2019-04-09] MEDS ORDERED: NON-FORMULARY MEDICATION 1 EA EA (Ranolazine (Ranexa) 1,000 MG) PO SCH (21:00)
[2019-04-09] MEDS: inSUlin ASPART (NovoLOG) 1 UNIT/0.01 ML (CHARGE PER UNIT) SC SCH (21:00)
[2019-04-09] MEDS ORDERED: NON-FORMULARY MEDICATION 1 EA EA (Omega-3/Dha/Epa/Fish Oil (Fish Oil 1,000 mg Softgel) 1 E PO SCH (21:00)
[2019-04-09] MEDS: ROSUVASTATIN 10 MG (CRESTOR) TABLET PO SCH (23:23)
[2019-04-09] MEDS: HYDROcodone/APAP 10 MG/325 MG (LORTAB) TAB PO PRN (23:24)
[2019-04-10] VITALS: BP 117/58
[2019-04-10 04:00] VITALS: BP 124/55
[2019-04-10 05:04] LABS: BASOPHILS % (AUTO) 0 % (0-10); EOSINOPHILS # (AUTO) 0.2 10^3/uL (0.0-0.3); EOSINOPHILS % (AUTO) 3 % (0-10); HEMATOCRIT 41 % (35-52); HEMOGLOBIN 13.9 G/DL (11.5-16.0); LYMPHOCYTES % (AUTO) 27 % (12-44); MEAN CORPUSCULAR HEMOGLOBIN 34 PG (25-34); MEAN CORPUSCULAR HGB CONC 34 G/DL (32-36); MEAN CORPUSCULAR VOLUME 98 FL (80-99); MEAN PLATELET VOLUME 10.3 FL (7.4-10.4); MONOCYTES # (AUTO) 0.9 X 10^3 (0.0-1.0); MONOCYTES % (AUTO) 12 % (0-12); NEUTROPHILS # (AUTO) 4.2 X 10^3 (1.8-7.8); NEUTROPHILS % (AUTO) 58 % (42-75); PLATELET COUNT 164 10^3/uL (130-400); RED CELL DISTRIBUTION WIDTH 12.5 % (10.0-14.5); WHITE BLOOD COUNT 7.2 10^3/uL (4.3-11.0)
[2019-04-10 05:19] LABS: CREATININE SERUM 0.98 MG/DL (0.60-1.30); POTASSIUM 3.5 MMOL/L (3.6-5.0)
[2019-04-10] MEDS: inSUlin ASPART (NovoLOG) 1 UNIT/0.01 ML (CHARGE PER UNIT) SC SCH ×5 (06:20→20:26)
[2019-04-10] MEDS ORDERED: insulin ASPART vial for Pump (NovoLOG) SQ SCH ×2 (07:00→17:00)
[2019-04-10 08:00] VITALS: BP 136/62
[2019-04-10] MEDS ORDERED: NON-FORMULARY MEDICATION 1 EA EA (Losartan Potassium 25 MG) PO SCH (09:00)
[2019-04-10] MEDS ORDERED: NON-FORMULARY MEDICATION 1 EA EA (Cholecalciferol (Vitamin D3) (Vitamin D3) 2,000 UNIT) PO SCH (09:00)
[2019-04-10] MEDS ORDERED: NON-FORMULARY MEDICATION 1 EA EA (Insulin Detemir (Levemir Flextouch) 10 UNIT) SQ SCH (09:00)
[2019-04-10] MEDS ORDERED: NON-FORMULARY MEDICATION 1 EA EA (Hydrochlorothiazide 25 MG) PO SCH (09:00)
[2019-04-10] MEDS ORDERED: HYDROCHLOROTHIAZIDE 25 MG (HCTZ) TAB PO SCH (09:00)
[2019-04-10] MEDS ORDERED: ASPIRIN 81 MG PO SCH (09:00)
[2019-04-10] MEDS ORDERED: ATENOLOL 25 MG (TENORMIN) TAB PO SCH ×2 (09:00→21:00)
[2019-04-10] MEDS ORDERED: NON-FORMULARY MEDICATION 1 EA EA (Amlodipine Besylate 5 MG) PO SCH (09:00)
[2019-04-10] MEDS: OMEGA 3 (FISH OIL) 1000 MG CAP PO SCH ×3 (09:05→17:26)
[2019-04-10] MEDS: ASPIRIN E.C. 81 MG (ECOTRIN) TAB PO SCH (09:06)
[2019-04-10] MEDS: VITAMIN D3 1,000 UNITS (CHOLECALCIFEROL) TABLET PO SCH (09:06)
[2019-04-10] MEDS: RANOLAZINE ER 500 MG TAB (RANEXA) PO SCH ×2 (09:06→20:09)
[2019-04-10] MEDS: PANTOPRAZOLE 40 MG (PROTONIX) TAB PO SCH (09:07)
[2019-04-10] MEDS: SPIRONOLACTONE 25 MG (ALDACTONE) TAB PO SCH (09:07)
[2019-04-10] MEDS: FUROSEMIDE 20 MG (LASIX) TAB PO SCH (09:08)
[2019-04-10] MEDS: LOSARTAN 25 MG (COZAAR) TAB PO SCH (09:08)
[2019-04-10] MEDS: amLODIPine 5 MG (NORVASC) TAB PO SCH (09:08)
--- NOTE | 2019-04-10 09:20 | NUR ---
SCANNER IN PATIENT ROOM IS NOT WORKING WELL-NOT ABLE TO SCAN ALL THE MORNING MEDICATIONS. PATIENT STATED THAT SHE TAKES HYDROCHLOROTHIAZIDE AND ATENOLOL IN THE EVENING INSTEAD OF THE MORNING. SHE WOULD LIKE TO CONTINUE TO TAKE IT THAT WAY HERE.
[2019-04-10] MEDS: ATENOLOL 25 MG (TENORMIN) TAB PO SCH (09:24)
--- NOTE | 2019-04-10 09:58 | History & Physical-Hospitalist ---
History of Present Illness HPI/Chief Complaint Pt is a 78yoCF with a PMH of CAD, IDDMII, HTN, chronic back pain due to likely spinal stenosis who presented to ER duet o falls and weakness, She states this has been going on for a while and has been worsening. She was admitted at [facility] for a week a couple of months ago and MRIs were done of her back and she was told her "back is trash" but that she didn't need surgery. She was sent out with referral for home health PT and she had done well with that. She was able to be discharged from PT. After that she continued to worsen and yesterday began to fall. She fell in her bathroom and her was unable to get her up so police were called to help her. He then got her a bedside commode and she fell again. This time she laid on the floor for roughly 1.5 hours as her was asleep and unable to get her up. When he did awake and find her EMS was called. On arrival to the ER she was found to have a UTI and was admitted for observation due to generalized weakness. Source: patient Date Seen 04/10/19 Time Seen by a Provider: 09:15 Attending Physician Lizbeth Rai MD PCP Shanthi Clay MD Referring Physician Date of Admission Apr 09, 2019 at 13:56 Home Medications & Allergies Home Medications Reviewed patient Home Medication Reconciliation performed by pharmacy medication reconciliations mold maintenance technician and/or nursing. Patients Allergies have been reviewed. Allergies Allergies Coded Allergies Sulfa (Sulfonamide Antibiotics) (Unverified Allergy, Unknown, HIVES, SOB, 10/27/06) morphine (Unverified Allergy, Unknown, UNKNOWN, 10/27/06) propoxyphene (Unverified Allergy, Unknown, UNKNOWN, 10/27/06) erythromycin base (Unverified Adverse Reaction, Unknown, SICK TO HER STOMACH, CRAMPS, VOMITING, 10/27/06) Past Uvmmhhg-Qnmozb-Qxelnr Hx Past Med/Social Hx: Reviewed Nursing Past Med/Soc Hx Patient Social History Marrital Status: Alcohol Use: Denies Use Recreational Drug Use: No Smoking Status: Former Smoker Former Smoker, Quit: Mar 27, 1988 Type Used: Cigarettes 2nd Hand Smoke Exposure: No Physical Abuse Screen: No Sexual Abuse: No Recent Foreign Travel: No Contact w/other who traveled: No Recent Hopitalizations: Yes Recent Infectious Disease Expo: No Immunizations Up To Date Pediatric: Yes Date of Pneumonia Vaccine: November 01, 2008 Date of Influenza Vaccine: Mar 18, 2016 Seasonal Allergies Seasonal Allergies: No Past Medical History Surgeries: Adenoidectomy, Appendectomy, Cardiac, Eye Surgery, Gallbladder, Hysterectomy, Oophorectomy, Orthopedic, Tonsillectomy Cardiac: Coronary Artery Disease, High Cholesterol, Hypertension Neurological: Neuropathy Reproductive: Yes (ENDOMETRIAL CANCER--S/P HYST/BSO) Hysterectomy, Menopausal Gastrointestinal: Hepatitis, Ulcer Musculoskeletal: Degenerate Disk Disease, Arthritis, Back Injury, Chronic Back Pain Endocrine: Diabetes, Insulin dep HEENT: Cataract Loss of Vision: Denies Hearing Impairment: Denies Cancer: Uterine Did You Recieve Any Treatments: Yes What Type of Treatment Did You: Surgical Intervention History of Blood Disorders: No Family History Reviewed Nursing Family Hx Patient reports no known family medical history. Review of Systems Constitutional: No diaphoresis, No dizziness; fever, weakness EENTM: no symptoms reported Respiratory: no symptoms reported Cardiovascular: no symptoms reported Gastrointestinal: no symptoms reported Genitourinary: No dysuria; frequency; No hematuria, No hesitancy Musculoskeletal: No muscle stiffness, No muscle cramps; muscle weakness Skin: no symptoms reported Psychiatric/Neurological: No Symptoms Reported Physical Exam Physical Exam Vital Signs Vital Signs - First Documented 04/09/19 04/09/19 11:23 14:30 Temp 35.6 Pulse 61 Resp 18 B/P (MAP) 125/56 (79) Pulse Ox 97 O2 Delivery Room Air O2 Flow Rate 2.00 Capillary Refill : Less Than 3 Seconds Height, Weight, BMI Height: 5'4.00" Weight: 230lbs. 0.0oz. [id number]; 39.10 BMI Method:Stated General Appearance: No Apparent Distress, Chronically ill, Obese HEENT: PERRL/EOMI, Moist Mucous Membranes; No Scleral Icterus (L), No Scleral Icterus (R) Neck: Normal Inspection, Supple Respiratory: Lungs Clear, No Accessory Muscle Use, No Respiratory Distress Cardiovascular: Regular Rate, Rhythm, No Murmur Gastrointestinal: Normal Bowel Sounds, Non Tender, Soft Extremity: No Calf Tenderness, No Pedal Edema Neurologic/Psychiatric: Alert, Oriented x3, Normal Mood/Affect, Motor Weakness; No Sensory Deficit Skin: Normal Color, Warm/Dry Results Results/Procedures Labs Laboratory Tests 04/09/19 11:30 04/10/19 03:54 Patient resulted labs reviewed. Imaging: Reviewed Imaging Report Assessment/Plan Admission Diagnosis UTI Admission Status: Observation Assessment and Plan UTI continue rocephin cultures pending Generalized Weakness PT/OT IRU consulte Records request from [facility] CAD continue home meds reports inoperable LAD disease no chest pain IDDMII continue home insulin regimen ssi HTN continue home meds Diagnosis/Problems Diagnosis/Problems (1) CAD (coronary artery disease) Status: Chronic Qualifiers: Coronary Disease-Associated Artery/Lesion type: [place] artery [place] vs. transplanted heart: [place] heart Associated angina: without angina Qualified Codes: I25.10 - Atherosclerotic heart disease of [place] coronary artery without angina pectoris (2) Lower extremity weakness Status: Acute Qualifiers: Laterality: bilateral Qualified Codes: R29.898 - Other symptoms and signs involving the musculoskeletal system (3) Urinary tract infection Status: Acute Qualifiers: Urinary tract infection type: acute cystitis Hematuria presence: without hematuria Qualified Codes: N30.00 - Acute cystitis without hematuria (4) HTN (hypertension) Status: Acute Qualifiers: Hypertension type: essential hypertension Qualified Codes: I10 - Essential (primary) hypertension (5) IDDM (insulin dependent diabetes mellitus) Status: Acute Clinical Quality Measures DVT/VTE Risk/Contraindication: Risk Factor Score Per Nursin RFS Level Per Nursing on Admit: 4+=Very High Copy Copies To 1: SHANTHI CLAY MD, KATELYN M MD Apr 10, 2019 09:58
[2019-04-10] MEDS: HYDROcodone/APAP 10 MG/325 MG (LORTAB) TAB PO PRN ×2 (10:34→20:23)
--- NOTE | 2019-04-10 11:48 | NUR ---
LOW HEART RATE ALARM ON TELEMETRY IN THE 40'S. PATIENT IS ASYMPTOMATIC AND VISITING WITH FAMILY. BP 105/[address] CASAREZ NOTIFIED. NO NEW ORDERS JUST KEEP AN EYE ON HER.
[2019-04-10 12:00] VITALS: BP 105/52
[2019-04-10] MEDS: NS IV 1000 ML 1,000 ML IV SCH (12:55)
[2019-04-10] MEDS: cefTRIAXone 1,000 MG/SWFI 10 ML IV PUSH IV SCH ×2 (12:55)
[2019-04-10 15:50] VITALS: BP 115/56
[2019-04-10] MEDS ORDERED: inSUlin ASPART (NovoLOG) 1 UNIT/0.01 ML (CHARGE PER UNIT) SC SCH (17:00)
[2019-04-10 19:57] VITALS: BP 111/55
[2019-04-10] MEDS: HYDROCHLOROTHIAZIDE 25 MG (HCTZ) TAB PO SCH (20:09)
[2019-04-10] MEDS: diphenhydrAMINE 25 MG TAB (BENADRYL) PO SCH (20:09)
[2019-04-10] MEDS: ROSUVASTATIN 10 MG (CRESTOR) TABLET PO SCH (20:09)
[2019-04-11] VITALS: BP 113/53
[2019-04-11 04:00] VITALS: BP 106/63
[2019-04-11] MEDS: NS IV 1000 ML 1,000 ML IV SCH (04:48)
[2019-04-11] MEDS: inSUlin ASPART (NovoLOG) 1 UNIT/0.01 ML (CHARGE PER UNIT) SC SCH ×5 (06:24→20:57)
--- NOTE | 2019-04-11 06:29 | NUR ---
SPO2 79% ON ROOM AIR WHILE ASLEEP. PLACED ON 4 LPM TO GET SPO2 TO SPO2 90%. NURSE NOTIFIED.
[2019-04-11] MEDS: OMEGA 3 (FISH OIL) 1000 MG CAP PO SCH ×3 (06:45→17:09)
[2019-04-11 08:00] VITALS: BP 119/64
--- NOTE | 2019-04-11 08:31 | NUR ---
SPOKE WITH PT WELL GOING THRU THE EXT MED HIST TO COMPLETE THE MED REC. NOVOLOG: PT SAYS SHE USES 20 UNITS IN THE MORNING AND IN THE EVENING BEFORE DINNER SHE WILL TAKE HER BLOOD SUGAR AND DEPENDING ON THAT READING ALONG WITH WHAT SHE IS EATING SHE USES A SLIDING SCALE (THE SIG FROM [facility] DOES NOT LOOK LIKE THEY HAVE THESE DIRECTIONS) OTC MEDS: ASPIRIN 81 VITAMIN D3 FISH OIL
--- NOTE | 2019-04-11 08:40 | NUR ---
IRF Evaluation Order received to evaluate patient for the ARU. Pre-Admission Screening initiated. Will continue to follow. Thank you for this referral. Addendum: 04/12/19 at 0935 by SEPTEMBER Radha MENDOZA SS Chart review complete and findings discussed with Dr. Vargas - patient accepted for admission. Dr. Clay notified.
[2019-04-11] MEDS: amLODIPine 5 MG (NORVASC) TAB PO SCH (08:48)
[2019-04-11] MEDS: FUROSEMIDE 20 MG (LASIX) TAB PO SCH (08:48)
[2019-04-11] MEDS: ASPIRIN E.C. 81 MG (ECOTRIN) TAB PO SCH (08:48)
[2019-04-11] MEDS: SPIRONOLACTONE 25 MG (ALDACTONE) TAB PO SCH (08:48)
[2019-04-11] MEDS: LOSARTAN 25 MG (COZAAR) TAB PO SCH (08:48)
[2019-04-11] MEDS: PANTOPRAZOLE 40 MG (PROTONIX) TAB PO SCH (08:48)
[2019-04-11] MEDS: VITAMIN D3 1,000 UNITS (CHOLECALCIFEROL) TABLET PO SCH (08:48)
[2019-04-11] MEDS: RANOLAZINE ER 500 MG TAB (RANEXA) PO SCH ×2 (08:51→21:09)
[2019-04-11] MEDS: HYDROcodone/APAP 10 MG/325 MG (LORTAB) TAB PO PRN ×2 (09:05→17:10)
--- NOTE | 2019-04-11 09:27 | Progress Note ---
Subjective Date Seen by a Provider: Apr 11, 2019 Time Seen by a Provider: 09:10 Subjective/Events-last exam PT REPORTS THAT SHE IS FEELING A LITTLE BIT BETTER TODAY. SHE REPORTS THAT SHE IS PERSISTENTLY WEAK, SHE DENIES PAIN SPECIFICALLY IN HER LEGS CAUSING HER WEAKNESS, SHE STATES THAT SOMETIMES SHE CAN STAND, THEN HER LEGS GIVE OUT LIKE A [place]TE. Review of Systems General: Fatigue, Malaise (INTERMITTENT) Pulmonary: No Dyspnea, No Cough Cardiovascular: No: Chest Pain, Palpitations Gastrointestinal: No: Nausea, Abdominal Pain Genitourinary: No Dysuria Musculoskeletal: back pain Neurological: Weakness; No: Confusion Focused Exam Lactate Level 04/09/19 14:05: Lactic Acid Level 1.23 Objective Exam Last Set of Vital Signs Vital Signs Date Time Temp Pulse Resp B/P (MAP) Pulse Ox O2 Delivery O2 Flow Rate FiO2 04/11/19 08:00 36.1 55 18 119/64 (82) 98 Nasal Cannula 4.00 Capillary Refill : Less Than 3 SecondsLess Than 3 Seconds I&O Intake and Output 04/11/19 00:00 Intake Total 2810 ml Output Total 1750 ml Balance 1060 ml Intake Oral 1800 ml IV Total 1010 ml Output Urine Total 1750 ml # Voids 1 # Bowel Movements 1 General: Alert, Oriented X3, Cooperative, No Acute Distress HEENT: Atraumatic, PERRLA Neck: Supple, No JVD Lungs: Clear to Auscultation, Normal Air Movement Heart: Regular Rate Abdomen: Normal Bowel Sounds, Soft, No Tenderness Extremities: No Cyanosis Skin: No Rashes, No Breakdown Neuro: Normal Speech, Cranial Nerves 3-12 NL Psych/Mental Status: Mental Status NL, Mood NL Results Lab Laboratory Tests 04/10/19 11:34: Glucometer 79 04/10/19 15:27: Glucometer 115H 04/10/19 20:14: Glucometer 139H 04/11/19 05:39: Glucometer 95 Microbiology 04/09/19 Blood Culture - Preliminary, Resulted No growth 04/09/19 Urine Culture - Final, Complete 3 or more isolates Assessment/Plan Assessment/Plan Assess & Plan/Chief Complaint UTI GENERALIZED WEAKNESS CHRONIC BACK PAIN SPINAL STENOSIS CAD DIABETES MELLITUS HYPERTENSION UTI - PT ON ROCEPHIN - CONTINUE WITH CURRENT TREATMENT. - WAITING ON CULTURE REPORT GENERALIZED WEAKNESS - STARTED PHYSICAL THERAPY - INPT REHAB CONSULTED FOR PT TO POSSIBLY GO DOWN TO IRF FOR STRENGTHENING PRIOR TO DC TO HOME. CHRONIC BACK PAIN WITH SPINAL STENOSIS - CONTINUE WITH PRN HYDROCODONE CAD - SUPPORTIVE CARE DIABETES MELLITUS - RESUMED HOME REGIMEN - PT IS ON A MORE STRICT DIET IN THE HOSPITAL AND HER FSBS HAVE BEEN LOWER, HER INSULIN HAS BEEN MODIFIED. HYPERTENSION - RESUMED HOME REGIMEN Clinical Quality Measures DVT/VTE Risk/Contraindication: Risk Factor Score Per Nursin RFS Level Per Nursing on Admit: 4+=Very High KARY MEHTA MD Apr 11, 2019 09:27 POS
[2019-04-11] MEDS ORDERED: KCL 10 MEQ TAB (MICRO K) PO NR (09:30)
--- NOTE | 2019-04-11 11:19 | Physical Therapy Evaluation ---
PT Evaluation-General Medical Diagnosis Admission Date Apr 09, 2019 at 13:56 Medical Diagnosis: UTI/bilateral LE weakness Onset Date: Apr 09, 2019 Therapy Diagnosis Therapy Diagnosis: generalized weakness/debility Height/Weight Height (Feet): 5 Height (Inches): 4.00 Weight (Pounds): 230 Weight (Ounces): 0.0 Precautions Precautions/Isolations: Fall Prevention Weight Bear Status Right Lower Extremity: Right Weight Bearing/Tolerated Left Lower Extremity: Left Weight Bearing/Tolerated Referral Physician: Fredi Reason for Referral: Evaluation/Treatment Medical History Pertinent Medical History: CAD, COPD, DM, HTN, Neuropathy Additional Medical History morbid obesity Current History EMS secondary to falls and weakness Reviewed History: Yes Social History Home: Single Level Current Living Status: Spouse Entry Into Home: Stairs With Railing PT Steps Into Home: 1 Prior Prior Level of Function SCALE: Activities may be completed with or without assistive devices. 9-Icnojfojzx-mcebekd completes the activity by him/herself with no assistance from a helper. 5-Set-up or Clean-up Assistance-helper sets up or cleans up; patient completes activity. Patrick assists only prior to or following the activity. 4-Supervision or Touching Assistance-helper provides verbal cues and/or touching/steadying and/or contact guard assistance as patient completes activity. Assistance may be provided throughout the activity or intermittently. 3-Partial/Moderate Assistance-helper does LESS THAN HALF the effort. Patrick lifts, holds or supports trunk or limbs, but provides less than half the effort. 2-Substantial/Maximal Assistance-helper does MORE THAN HALF the effort. Patrick lifts or holds trunk or limbs and provides more than half the effort. 2-Orekkrnkn-yrenea does ALL the effort. Patient does none of the effort to complete the activity. Or, the assistance of 2 or more helpers is required for the patient to complete the activity. If activity was not attempted, code reason: 7-Patient Refused. 9-Not Applicable-not attempted and the patient did not perform the activity before the current illness, exacerbation or injury. 10-Not Attempted due to Environmental Limitations-(lack of equipment, weather restraints, etc.). 88-Not Attempted due to Medical Conditions or Safety Concerns. Bed Mobility: 5 Transfers (B,C,W/C): 5 Gait: 5 Wheelchair Mobility: 5 Indoor Mobility (Ambulation): Needed Some Help Prior Devices Use: Manual wheelchair (utilized in and outside of home), Walker (short distances only in the home x 1 month) PT Evaluation-Current Subjective Patient agrees to PT. Patient reports she had a pain pill ~ 45 minutes prior to PT. Pain Numeric Pain Scale: 5-Moderate Pain Location: Lower Location Body Site: Back Pain Description: Chronic Objective Patient Orientation: Normal For Age Problem Solving: Fair Attachments: Oxygen (4L NC), IV ROM/Strength ROM Lower Extremities bilateral LE WFL Strength Lower Extremities right knee flexion/extension 3-/5; hip flexion 3-/5; DF/PF 3-/5 left knee flexion/extension 3-/5; hip flexion 3-/5; DF/PF 3-/5 (Inconsistent demonstration with MMT bilateral LE ) Integumentary/Posture Integumentary refer to nursing notes Bowel Incontinence: No Bladder Incontinence: No Posture trunk flexed posture Neuromuscular (Tone, Coordination, Reflexes) grossly intact Sensory Vision: Functional Hearing: Functional Sensation Right Lower Extremit: Impaired Sensation Left Lower Extremity: Impaired Transfers Roll Left to Right (QC): 6 Sit to Lying (QC): 6 Lying to Sitting/Side of Bed(Q: 6 Sit to Stand (QC): 3 Chair/Opz-kk-Ahdxq Xfer(QC): 3 patient demonstrates bilateral LE "tremors", "shaking" with sit to stand and with SPT bed to commode, however, did not demonstrate this with sit to stand from commode and SPT to bed (both with FWW use) Gait Does the Patient Walk?: Yes Mode of Locomotion: Both Anticipated Mode of Locomotion: Both Distance (FIM): 1=up to 49 ft Walk 10 feet (QC): 88 Walk 50 ft with 2 Turns(QC): 88 Walk 150 ft (QC): 9 Distance: 5' x 2 Gait Assistive Device: FWW Comments/Gait Description trunk flexed posture which limits advancing of bilateral LE with ambulation Wheelchair Training Does the Pt Use a Wheelchair?: Yes Balance Sitting Static: Normal Sitting Dynamic: Normal Standing Static: Fair Standing Dynamic: Fair Assessment/Needs 78 y.o. female, will benefit from skilled PT to address functional strength and mobility. Patient is currently limited by LBP and inconsistent MMT findings bilateral LE. Rehab Potential: Fair PT [place] Deckhand Goals Custodial Goals PT Custodial Goals Time Frame: Apr 30, 2019 Sit to Lying (QC): 6 Lying-Sitting on Side/Bed(QC): 6 Sit to Stand (QC): 6 Roll Left to Right (QC): 6 Chair/Smi-kx-Fbgxi Xfer(QC): 6 Car Transfer (QC): 6 Does the Patient Walk: Yes Distance: 50' Walk 10 feet (QC): 6 Walk 10ft-Uneven Surface(QC): 6 Walk 50ft with 2 Turns (QC): 6 Walk 150 ft (QC): 9 Gait Assistive Device: FWW PT Plan Problem List Problem List: Activity Tolerance, Functional Strength, Safety, Balance, Gait, Transfer, ROM Treatment/Plan Treatment Plan: Continue Plan of Care Treatment Plan: Bed Mobility, Education, Functional Activity Arabella, Functional Strength, Gait, Safety, Therapeutic Exercise, Transfers Treatment Duration: Apr 30, 2019 Frequency: 6 times per week Estimated Hrs Per Day: .25 hour per day Patient and/or Family Agrees t: Yes Time/GCodes Time In: 945 Time Out: 1010 Total Billed Treatment Time: 25 Total Billed Treatment 1 visit EVModC 15 min FA 10 min OLAMIDE ORTEGA PT Apr 11, 2019 11:19
[2019-04-11 12:31] VITALS: BP 113/66
[2019-04-11] MEDS ORDERED: INSU100I29 SQ (13:42)
[2019-04-11] MEDS: cefTRIAXone 1,000 MG/SWFI 10 ML IV PUSH IV SCH ×2 (14:08)
[2019-04-11 15:45] VITALS: BP 113/57
[2019-04-11] MEDS ORDERED: inSUlin ASPART (NovoLOG) 1 UNIT/0.01 ML (CHARGE PER UNIT) SC SCH (17:00)
[2019-04-11 19:39] VITALS: BP 100/51
[2019-04-11] MEDS: HYDROCHLOROTHIAZIDE 25 MG (HCTZ) TAB PO SCH (20:57)
--- NOTE | 2019-04-11 20:58 | NUR ---
NOTIFIED TYSON OF PT HYPOTENSION BP 100/58 MANUAL HEART RATE 53. ORDER TO DC HTZ OBTAINED. NOTIFIED TYSON OF PT BG OF 115. PROVIDER STATES TO GIVE LEVEMIR SCHEDULED.
[2019-04-11] MEDS: diphenhydrAMINE 25 MG TAB (BENADRYL) PO SCH (21:09)
[2019-04-11] MEDS: ROSUVASTATIN 10 MG (CRESTOR) TABLET PO SCH (21:09)
[2019-04-12] VITALS: BP 114/64
[2019-04-12] MEDS: NS IV 1000 ML 1,000 ML IV SCH (00:47)
[2019-04-12] MEDS: HYDROcodone/APAP 10 MG/325 MG (LORTAB) TAB PO PRN ×2 (01:14→10:18)
[2019-04-12 04:16] VITALS: BP 100/50
[2019-04-12] MEDS: inSUlin ASPART (NovoLOG) 1 UNIT/0.01 ML (CHARGE PER UNIT) SC SCH ×3 (06:25→10:07)
[2019-04-12 06:28] LABS: HEMOGLOBIN 13.1 G/DL (11.5-16.0); MEAN PLATELET VOLUME 10.2 FL (7.4-10.4); RED CELL DISTRIBUTION WIDTH 12.6 % (10.0-14.5); WHITE BLOOD COUNT 4.9 10^3/uL (4.3-11.0)
[2019-04-12] MEDS: OMEGA 3 (FISH OIL) 1000 MG CAP PO SCH (06:32)
[2019-04-12 06:45] LABS: ALANINE AMINOTRANSFERASE 20 U/L (0-55); ALBUMIN 3.1 GM/DL (3.2-4.5); ALKALINE PHOSPHATASE 38 U/L (40-136); BILIRUBIN,TOTAL 0.5 MG/DL (0.1-1.0); BUN/CREATININE RATIO 16; CALCIUM 8.4 MG/DL (8.5-10.1); CARBON DIOXIDE 27 MMOL/L (21-32); CHLORIDE 100 MMOL/L (98-107); CREATININE SERUM 0.88 MG/DL (0.60-1.30); GFR ESTIMATED > 60; GLUCOSE 74 MG/DL (70-105); POTASSIUM 3.3 MMOL/L (3.6-5.0); SODIUM 138 MMOL/L (135-145)
[2019-04-12 08:00] VITALS: BP 107/61
[2019-04-12] MEDS: SPIRONOLACTONE 25 MG (ALDACTONE) TAB PO SCH (08:21)
[2019-04-12] MEDS: FUROSEMIDE 20 MG (LASIX) TAB PO SCH (08:21)
[2019-04-12] MEDS: amLODIPine 5 MG (NORVASC) TAB PO SCH (08:21)
[2019-04-12] MEDS: PANTOPRAZOLE 40 MG (PROTONIX) TAB PO SCH (08:22)
[2019-04-12] MEDS: RANOLAZINE ER 500 MG TAB (RANEXA) PO SCH (08:22)
[2019-04-12] MEDS: ASPIRIN E.C. 81 MG (ECOTRIN) TAB PO SCH (08:22)
[2019-04-12] MEDS: LOSARTAN 25 MG (COZAAR) TAB PO SCH (08:22)
[2019-04-12] MEDS: VITAMIN D3 1,000 UNITS (CHOLECALCIFEROL) TABLET PO SCH (08:22)
[2019-04-12] MEDS ORDERED: BISACODYL 10 MG SUPP (DULCOLAX) PR ONE (09:00)
[2019-04-12] MEDS ORDERED: SENNA W/DOCUSATE (SENOKOT S) TABLET PO SCH (09:00)
--- NOTE | 2019-04-12 09:08 | Progress Note ---
Subjective Date Seen by a Provider: Apr 12, 2019 Time Seen by a Provider: 09:08 Subjective/Events-last exam cancel note - see dc note Focused Exam Lactate Level 04/09/19 14:05: Lactic Acid Level 1.23 Objective Exam Last Set of Vital Signs Vital Signs Date Time Temp Pulse Resp B/P (MAP) Pulse Ox O2 Delivery O2 Flow Rate FiO2 04/12/19 08:00 36.3 51 18 107/61 (76) 92 High Flow N/C 3.00 Capillary Refill : Less Than 3 SecondsLess Than 3 Seconds I&O Intake and Output 04/12/19 00:00 Intake Total 2330 ml Output Total 900 ml Balance 1430 ml Intake Oral 1330 ml IV Total 1000 ml Output Urine Total 900 ml # Voids 2 Results Lab Laboratory Tests 04/11/19 10:30: Glucometer 143H 04/11/19 15:02: Glucometer 130H 04/11/19 19:41: Glucometer 115H 04/12/19 05:32: White Blood Count 4.9, Red Blood Count 3.95L, Hemoglobin 13.1, Hematocrit 39, Mean Corpuscular Volume 99, Mean Corpuscular Hemoglobin 33, Mean Corpuscular Hemoglobin Concent 34, Red Cell Distribution Width 12.6, Platelet Count 133, Mean Platelet Volume 10.2, Sodium Level 138, Potassium Level 3.3L, Chloride Level 100, Carbon Dioxide Level 27, Anion Gap 11, Blood Urea Nitrogen 14, Creatinine 0.88, Estimat Glomerular Filtration Rate > 60, BUN/Creatinine Ratio 16, Glucose Level 74, Calcium Level 8.4L, Corrected Calcium 9.1, Total Bilirubin 0.5, Aspartate Amino Transf (AST/SGOT) 39H, Alanine Aminotransferase (ALT/SGPT) 20, Alkaline Phosphatase 38L, Total Protein 5.0L, Albumin 3.1L 04/12/19 06:11: Glucometer 82 Microbiology 04/09/19 Blood Culture - Preliminary, Resulted No growth 04/09/19 Urine Culture - Final, Complete 3 or more isolates Assessment/Plan Assessment/Plan Assess & Plan/Chief Complaint cancel note see dc note Clinical Quality Measures DVT/VTE Risk/Contraindication: Risk Factor Score Per Nursin RFS Level Per Nursing on Admit: 4+=Very High KARY MEHTA MD Apr 12, 2019 09:08 POS
[2019-04-12] MEDS ORDERED: predniSONE 5 MG TAB PO SCH (09:15)
[2019-04-12] MEDS ORDERED: INSU100V5 SQ (09:16)
--- NOTE | 2019-04-12 09:17 | Discharge Summary ---
Diagnosis/Chief Complaint Date of Admission Apr 09, 2019 at 13:56 Date of Discharge Discharge Date: Apr 12, 2019 Discharge Time: 1000 Admission Diagnosis Admission Diagnosis UTI GENERALIZED WEAKNESS CHRONIC BACK PAIN SPINAL STENOSIS CAD DIABETES MELLITUS HYPERTENSION Discharge Diagnosis UTI GENERALIZED WEAKNESS CHRONIC BACK PAIN SPINAL STENOSIS CAD DIABETES MELLITUS HYPERTENSION Reason Hospital Visit Pt is a 78yoCF with a PMH of CAD, IDDMII, HTN, chronic back pain due to likely spinal stenosis who presented to ER duet o falls and weakness, She states this has been going on for a while and has been worsening. She was admitted at [facility] for a week a couple of months ago and MRIs were done of her back and she was told her "back is trash" but that she didn't need surgery. She was sent out with referral for home health PT and she had done well with that. She was able to be discharged from PT. After that she continued to worsen and yesterday began to fall. She fell in her bathroom and her was unable to get her up so police were called to help her. He then got her a bedside commode and she fell again. This time she laid on the floor for roughly 1.5 hours as her was asleep and unable to get her up. When he did awake and find her EMS was called. On arrival to the ER she was found to have a UTI and was admitted for observation due to generalized weakness. Discharge Summary Discharge Physical Examination Allergies: Coded Allergies: Sulfa (Sulfonamide Antibiotics) (Unverified Allergy, Unknown, HIVES, SOB, 10/27/06) morphine (Unverified Allergy, Unknown, UNKNOWN, 10/27/06) propoxyphene (Unverified Allergy, Unknown, UNKNOWN, 10/27/06) erythromycin base (Unverified Adverse Reaction, Unknown, SICK TO HER STOMACH, CRAMPS, VOMITING, 10/27/06) Vitals & I&Os Vital Signs Date Time Temp Pulse Resp B/P (MAP) Pulse Ox O2 Delivery O2 Flow Rate FiO2 04/12/19 08:00 36.3 51 18 107/61 (76) 92 High Flow N/C 3.00 General Appearance: Alert, Oriented X3, Cooperative, No Acute Distress HEENT: Atraumatic, PERRLA, Mucous Memb Moist/[place] Respiratory: Clear to Auscultation Cardiovascular: Regular Rate Abdominal: Normal Bowel Sounds, Soft, No Tenderness Extremities: No Clubbing, No Cyanosis Skin: No Rashes, No Breakdown Neuro: Normal Speech, Cranial Nerves 3-12 NL Psych/Mental Status: Mental Status NL, Mood NL Hospital Course UTI GENERALIZED WEAKNESS CHRONIC BACK PAIN SPINAL STENOSIS CAD DIABETES MELLITUS HYPERTENSION UTI - PT ON ROCEPHIN - CONTINUE WITH CURRENT TREATMENT. - WAITING ON CULTURE REPORT GENERALIZED WEAKNESS - STARTED PHYSICAL THERAPY - INPT REHAB CONSULTED FOR PT TO POSSIBLY GO DOWN TO IRF FOR STRENGTHENING PRIOR TO DC TO HOME. CHRONIC BACK PAIN WITH SPINAL STENOSIS - CONTINUE WITH PRN HYDROCODONE CAD - SUPPORTIVE CARE DIABETES MELLITUS - RESUMED HOME REGIMEN - PT IS ON A MORE STRICT DIET IN THE HOSPITAL AND HER FSBS HAVE BEEN LOWER, HER INSULIN HAS BEEN MODIFIED. HYPERTENSION - RESUMED HOME REGIMEN Pending Labs Laboratory Tests 04/12/19 05:32: White Blood Count 4.9, Red Blood Count 3.95, Hemoglobin 13.1, Hematocrit 39, Mean Corpuscular Volume 99, Mean Corpuscular Hemoglobin 33, Mean Corpuscular Hemoglobin Concent 34, Red Cell Distribution Width 12.6, Platelet Count 133, Mean Platelet Volume 10.2, Sodium Level 138, Potassium Level 3.3, Chloride Level 100, Carbon Dioxide Level 27, Anion Gap 11, Blood Urea Nitrogen 14, Creatinine 0.88, Estimat Glomerular Filtration Rate > 60, BUN/Creatinine Ratio 16, Glucose Level 74, Calcium Level 8.4, Corrected Calcium 9.1, Total Bilirubin 0.5, Aspa rtate Amino Transf (AST/SGOT) 39, Alanine Aminotransferase (ALT/SGPT) 20, Alkaline Phosphatase 38, Total Protein 5.0, Albumin 3.1 04/12/19 06:11: Glucometer 82 Discharge Instructions to patient/family Please see electronic discharge instructions given to patient. Discharge Medications Reviewed and agree with Discharge Medication list on patient's Discharge Instruction sheet Clinical Quality Measures DVT/VTE Risk/Contraindication: Risk Factor Score Per Nursin RFS Level Per Nursing on Admit: 4+=Very High KARY MEHTA MD Apr 12, 2019 09:17 POS
[2019-04-12] MEDS ORDERED: METHYLNALTREXONE 12 MG/0.6 ML (RELISTOR) VIAL SQ NR (09:24)
[2019-04-12] MEDS ORDERED: KCL 20 MEQ TAB (K-DUR) PO NR (09:25)
[2019-04-12] MEDS ORDERED: FLU QUADRIvalent (5+ YOA) 2019-2020 (AFLURIA) 0.5 ML IM ONE (09:41)
--- NOTE | 2019-04-12 10:10 | NUR ---
Report given to TIERNEY Hammond receiving nurse for ARU.
--- NOTE | 2019-04-12 10:36 | NUR ---
Initial visit: The pt is [employer] and shared in depth about her personal stevan and life experiences. 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 They have one daughter, Adrianna and a grandson, Tonie, of whom she is proud. She shared her love for her family and her personal story of love and acceptance as an adopted child. Her is the primary caregiver. The pt is being transferred to [facility] today per Dr. Clay and Dr. Vargas.
[2019-04-12] MEDS ORDERED: INSU100I29 SQ (10:41)
== END 2019-04-12 10:40 | DRG 690 ==
LOC: EDUNIT# 11:21 → ER 11:23 → 4TH 13:56
PROVIDERS: ADMIT Family Medicine; ATTEND Family Medicine
DX: N30.00 Acute cystitis without hematuria (principal); R29.898 Other symptoms and signs involving the musculoskeletal system; R53.1 Weakness; R53.83 Other fatigue; I25.10 Atherosclerotic heart disease of native coronary artery without angina pectoris; I10 Essential (primary) hypertension; J44.9 Chronic obstructive pulmonary disease, unspecified; E78.00 Pure hypercholesterolemia, unspecified; Z23 Encounter for immunization; E11.42 Type 2 diabetes mellitus with diabetic polyneuropathy; M48.00 Spinal stenosis, site unspecified; K75.9 Inflammatory liver disease, unspecified; E66.9 Obesity, unspecified; M19.91 Primary osteoarthritis, unspecified site; W18.39XA Other fall on same level, initial encounter; Y92.099 Unspecified place in other non-institutional residence as the place of occurrence of the external cause; Z79.4 Long term (current) use of insulin; Z87.891 Personal history of nicotine dependence; Z85.42 Personal history of malignant neoplasm of other parts of uterus; Z90.710 Acquired absence of both cervix and uterus; Z68.39 Body mass index [BMI] 39.0-39.9, adult; Z87.11 Personal history of peptic ulcer disease; Z88.2 Allergy status to sulfonamides; Z88.5 Allergy status to narcotic agent
CPT/HCPCS: 36415; 70450; 71045; 72170; 80048; 80053; 81000; 82962; 83605; 84484; 85025; 85027; 86141; 87040; 87088; 93005; 94760; 96361; 96365

== ENCOUNTER 2019-04-12 09:47 | Inpatient (IN) | payer MEDICARE ==
[~2019-04-12] VITALS: Ht 162 cm; Wt 100.0 kg
[~2019-04-12 09:47] MED LIST changes: +ATEN25TA PO; +DIPH-718 PO; +PANT40TA3 PO
[2019-04-12] MEDS ORDERED: INSU100I29 SQ (10:41)
--- NOTE | 2019-04-12 10:41 | NUR ---
REVIEWED MED REC IT WAS REPORTED UPON ADMISSION TO 4TH FLOOR. NOTE THE FOLLOWING CHANGE WAS MADE WHEN THE PATIENT DISCHARGED TO REHAB THAT IS NOT CURRENTLY REFLECTED ON THE HOME MED REC: CHANGE LEVEMIR FROM 40 UNITS HS TO 20 UNITS HS.
--- NOTE | 2019-04-12 10:57 | Progress Note ---
[facility]PAT [facility] 04/12/19 1056: Progress Note CC: Leg weakness, UTI HPI: Pt was at home where she normally uses a walker due to back pain. She fell after she used the restroom and was int he hallway headed back. She states that her legs just gave out from underneath her all of a sudden. She does report having some burning pain in her legs recently along with chronic numbness in her feet that is due to her diabetes. Previously her back pain had been the greatest limiting factor to her mobility, but currently she has weakness along with the back pain. She states her back pain is from a prior surgery for ruptured discs in her lumbar spine. She also reports a history of hand tremors, HTN, previous [place], and diabetes. She denied any abdominal pain, diarrhea, SOB, cough, calf tenderness, chest pain, or palpitations. Barriers: * She currently is a 2 person assist to stand and transfer to the bedside commode * She is currently on 3L O2 when she had previously not require home O2 * She states she is having trouble sitting up in the bed due to her back pain * She is able to move her arms and head with out any difficulty or pain * She states she has a friend who is a physical therapist that agreed to come help her at her house after her discharge Goals: * She would like to return home using a walker unassisted as before * She would like to get off the O2 * She would like to regain her strength to be able to sit to stand from bed and toilet * She would like to have her back pain return to is prior level at least if not get better JACQUELINE ESPARZA DO 04/13/19 0815: Supervisory-Addendum Brief Verification & Attestation Participated in pt care: history, MDM, physical Personally performed: exam, history, MDM, supervision of care Care discussed with: Medical Student Procedures: n/a Results interpretation: Verified all documentation Verification and Attestation of Medical Student E/M Service A medical student performed and documented this service in my presence. I reviewed and verified all information documented by the medical student and made modifications to such information, when appropriate. I personally performed the physical exam and medical decision making. Jacqueline Esparza, Apr 13, 2019,08:15 [facility] Apr 12, 2019 10:56 JACQUELINE CHRIS DO Apr 13, 2019 08:15 POS
--- NOTE | 2019-04-12 11:15 | NUR ---
BENIGNO KUMAR admitted to room , with an admitting diagnosis of Debility, on from via wheelchair, accompanied by staff.BENIGNO KUMAR introduced to surroundings, call light, bed controls, phone, TV, temperature control, lights, meal times, smoking policy, visitor policy, side rail policy, bathrooms and showers. Patient Rights given to patient in the handbook. BENIGNO KUMAR verbalizes understanding that [facility] is not responsible for the loss or damage to any personal effects or valuables that are kept in the patients posession during their hospitalization. The following Patient Care Plans were discussed with the pt: Discharge Planning. BENIGNO KUMAR verbalizes understanding of Interdisciplinary Patient Education. Patient and/or family were informed about the Rapid Response Team and its purpose.
--- NOTE | 2019-04-12 11:26 | Occupational Therapy Eval ---
OT Evaluation-General/PLF Medical Diagnosis Admission Date Apr 12, 2019 at 10:40 Medical Diagnosis: debility Onset Date: Apr 09, 2019 Therapy Diagnosis Therapy Diagnosis: decreased functional mobility and ADL function Height/Weight Height (Feet): 5 Height (Inches): 4.00 Weight (Pounds): 230 Weight (Ounces): 0.0 Precautions Precautions/Isolations: Standard Precautions Weight Bear Status Weight Bearing Restriction: Weight Bearing/Tolerated Referral Physician: Jacqueline Vargas DO Referral Reason: Activity Tolerance, Self Care, Evaluation/Treatment, S trengthening/ROM Medical History Pertinent Medical History: CAD, COPD, DM, HTN, Neuropathy Additional Medical History COPD, CAD, HTN, high cholesterol, degenerative disc disease, arthritis, DM Current History Per H&P: "Pt is a 78yoCF with a PMH of CAD, IDDMII, HTN, chronic back pain due to likely spinal stenosis who presented to ER duet o falls and weakness, She states this has been going on for a while and has been worsening. She was admitted at [facility] for a week a couple of months ago and MRIs were done of her back and she was told her "back is trash" but that she didn't need surgery. She was sent out with referral for home health PT and she had done well with that. She was able to be discharged from PT. After that she continued to worsen and yesterday began to fall. She fell in her bathroom and her was unable to get her up so police were called to help her. He then got her a bedside commode and she fell again. This time she laid on the floor for roughly 1.5 hours as her was asleep and unable to get her up. When he did awake and find her EMS was called. On arrival to the ER she was found to have a UTI and was admitted for observation due to generalized weakness." Reviewed History: Yes Social History Home: Single Level Current Living Status: Spouse Steps Inside Home: 0 (Laundry located in basement, pt does not go to basement. ) ADL-Prior Level of Function SCALE: Activities may be completed with or without assistive devices. 8-Svdtgpnjik-fsldnvn completes the activity by him/herself with no assistance from a helper. 5-Set-up or Clean-up Assistance-helper sets up or cleans up; patient completes activity. [place] assists only prior to or following the activity. 4-Supervision or Touching Assistance-helper provides verbal cues and/or touching/steadying and/or contact guard assistance as patient completes activity. Assistance may be provided throughout the activity or intermittently. 3-Partial/Moderate Assistance-helper does LESS THAN HALF the effort. [place] lifts, holds or supports trunk or limbs, but provides less than half the effort. 2-Substantial/Maximal Assistance-helper does MORE THAN HALF the effort. [place] lifts or holds trunk or limbs and provides more than half the effort. 0-Ltodycwgs-wqemgv does ALL the effort. Patient does none of the effort to complete the activity. Or, the assistance of 2 or more helpers is required for the patient to complete the activity. If activity was not attempted, code reason: 7-Patient Refused. 9-Not Applicable-not attempted and the patient did not perform the activity before the current illness, exacerbation or injury. 10-Not Attempted due to Environmental Limitations-(lack of equipment, weather restraints, etc.). 88-Not Attempted due to Medical Conditions or Safety Concerns. ADL PLOF Comments Pt states assist required for bathing back, pt IND in all other ADL activities. Self Care: Needed Some Help Functional Cognition: Independent DME/Equipment: Bath Chair DME/Equipment Comments Pt utilized FWW to walk ~55 feet prior to hospitalization. Pt states she utilizes w/c for mobility through day, sitting frequently. Occupation: retired Drive Self: No Leisure Interests: piano, modified IADL tasks in home OT Current Status Subjective Pt seen on 4th floor, brought down to NDU in w/c. Pt states no pain, just nausea currently. Pt states she became nauseous after pain medication. Pt alert and oriented, present. Pt agreeable to OT eval/ treat. Mental Status/Objective Patient Orientation: Person, Place, Time, Situation, Normal For Age Pt states 02 dropped during the night, 02 utilized during the night per pt. Pt's sats at 93% once in room Attachments: IV (IV disconnected prior to move to NDU) Current Glasses/Contacts: Yes Hearing Aids: No Dentures/Partials: Yes Hand Dominance: Right Upper Extremity ROM WFL BUE Upper Extremity Coordination WFL BUE Upper Extremity Sensation WFL BUE Pt states tingling/ numbness in BLE Upper Extremity Strength 4-/5 BUE ADL-Treatment Eating (QC): 6 Oral Hygiene (QC): 6 (Completes while seated in w/c. ) Lower Body Dressing (QC): 3 (min A threading 1 foot, assist in pulling up due to decreased balance and standing tolerance. ) On/Off Footwear (QC): 4 (SBA due to decreased balance. Pt brings foot across lap, attempts multiple times prior to mastery.) Toileting Hygiene (QC): 3 ( Pt completes jose alejandro hygiene after urination while seated. Pt decreased standing tolerance; based on clinical judgement pt would be mod-min A for BM clean up. ) Toilet Transfer (QC): 4 (CGA) Other Treatments Pt seen supine in bed, pt requires min A for bed mob to EOB. Pt states she holds on to 2 person's arms to pull to stand. Pt educated on coming to EOB, raising bed; pt completes sit to stand with min A. Pt ambulates with FWW to w/c, stating she has difficulties walking sideways/ rotating with FWW. Pt sits in w/c, transferred to ARU floor. Pt completes evaluation [id number]. Pt seen second time from [id number]. Pt seen in recliner chair, present at start of session. Pt eats food with IND, educated on HEP during eating. Pt demonstrates back exercises after eating 5x per arm, 4 exercises, states "My arms are worn out." Pt completes sit to stand with CGA, transfers to w/c with FWW. Pt able to maneuver w/c IND into bathroom, pt transfers to toilet with CGA and FWW. Pt educated on use of grab bars and safety with FWW with sit to stand. Pt stands for jose alejandro hygiene, unable to maintain stance until clean. Pt requires rest, completes hygiene with CGA and underwear donning with min A. Pt transfers to w/c with FWW, oral hygiene at sink with IND. Pt utilizes FWW to transfer to chair. Pt left with food placed in front of pt, call light within reach, all needs met, all questions answered. Education OT Patient Education: Correct positioning, Instructions to caregiver, Purpose of tx/functional activities, Rehab process Teaching Recipient: Patient Teaching Methods: Demonstration, Discussion Response to Teaching: Verbalize Understanding, Return Demonstration OT Short Term Goals Short Term Goals Upper Body Dressing(FIM): 4 Lower Body Dressing(FIM): 4 Transfers (B,C,W/C) (FIM): 5 Additional Short Term Goals: 1-Demonstrate ADL Tasks, 2-Verbalize Understanding, 3-ImproveStrength/Arabella 1=Demonstrate adherence to instructed precautions during ADL tasks. 2=Patient will verbalize/demonstrate understanding of assistive devic es/modifications for ADL. 3=Patient will improve strength/tolerance for activity to enable patient to perform ADL's. OT Orthopaedic Nurse Goals Orthopaedic Nurse Goals Eating (QC): 6 Oral Hygiene (QC): 6 Shower/Bathe Self (QC): 4 Upper Body Dressing (QC): 6 Lower Body Dressing (QC): 6 On/Off Footwear (QC): 6 Toileting Hygiene (QC): 6 Toilet/Commode Transfer (QC): 6 Additional Goals: 1-Demonstrate ADL Tasks, 2-Verbalize Understanding, 3- ImproveStrength/Arabella 1=Demonstrate adherence to instructed precautions during ADL tasks. 2=Patient will verbalize/demonstrate understanding of assistive devices/modifications for ADL. 3=Patient will improve strength/tolerance for activity to enable patient to perform ADL's. OT Education/Plan Problem List/Assessment Assessment: Decreased Activ Tolerance, Decreased UE Strength, Dependent Transfers, Impaired Bed Mobility, Impaired Funct Balance, Impaired I ADL's, Impaired Self-Care Skills Discharge Recommendations Plan/Recommendations: Continue POC Therapy Discharge Recommendati: Intermittent Supervision, Post Acute OT Treatment Plan/Plan of Care Treatment,Training & Education: Yes Patient would benefit from OT for education, treatment and training to promote independence in ADL's, mobility, safety and/or upper extremity function for ADL's. Plan of Care: ADL Retraining, Caregiver Training, Concurrent Therapy, Functional Mobility, Group Exercise/Act as Ind, UE Funct Exercise/Act Treatment Duration: Apr 26, 2019 Frequency: At least 5 of 7 days/Wk (IRF) Estimated Hrs Per Day: 1.5 hours per day Agreement: Yes Rehab Potential: Fair Time/GCodes Start Time: 10:40 (2nd start time: 1230) Stop Time: 11:15 (2nd stop time 1330) Total Time Billed (hr/min): 95 Billed Treatment Time 1st session: 1, EVM (15), ADL (20)= 35 2nd session: 1, ADL (45), EX (15)= 60 Total= 95 PREMA RODRIGUEZ OTR Apr 12, 2019 11:26 POS
[2019-04-12 11:42] VITALS: BP 125/66
--- NOTE | 2019-04-12 12:14 | Physical Therapy Evaluation ---
PT Evaluation-General Medical Diagnosis Admission Date Apr 12, 2019 at 10:40 Medical Diagnosis: debility Onset Date: Apr 09, 2019 Therapy Diagnosis Therapy Diagnosis: decreased strength/endurance, decreased activity anton Height/Weight Height (Feet): 5 Height (Inches): 4.00 Weight (Pounds): 230 Weight (Ounces): 0.0 Precautions Precautions/Isolations: Fall Prevention, Standard Precautions Weight Bear Status Right Lower Extremity: Right Full Weight Bearing Left Lower Extremity: Left Full Weight Bearing Referral Physician: Jacquelien Vargas DO Reason for Referral: Evaluation/Treatment Medical History Pertinent Medical History: CAD, COPD, DM, HTN, Neuropathy Additional Medical History 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 ) Prior Prior Level of Function SCALE: Activities may be completed with or without assistive devices. 7-Pzvkcsghcn-hkpuznu completes the activity by him/herself with no assistance from a helper. 5-Set-up or Clean-up Assistance-helper sets up or cleans up; patient completes activity. [place] assists only prior to or following the activity. 4-Supervision or Touching Assistance-helper provides verbal cues and/or touching/steadying and/or contact guard assistance as patient completes activity. Assistance may be provided throughout the activity or intermittently. 3-Partial/Moderate Assistance-helper does LESS THAN HALF the effort. [place] lifts, holds or supports trunk or limbs, but provides less than half the effort. 2-Substantial/Maximal Assistance-helper does MORE THAN HALF the effort. [place] lifts or holds trunk or limbs and provides more than half the effort. 5-Qestuuafa-wqxlqy does ALL the effort. Patient does none of the effort to complete the activity. Or, the assistance of 2 or more helpers is required for the patient to complete the activity. If activity was not attempted, code reason: 7-Patient Refused. 9-Not Applicable-not attempted and the patient did not perform the activity before the current illness, exacerbation or injury. 10-Not Attempted due to Environmental Limitations-(lack of equipment, weather restraints, etc.). 88-Not Attempted due to Medical Conditions or Safety Concerns. Bed Mobility: 6 Gait: 6 Wheelchair Mobility: 6 Indoor Mobility (Ambulation): Needed Some Help Stairs: Needed Some Help Prior Devices Use: Manual wheelchair, Walker PT Evaluation-Current Subjective pt in finishing with OT pre-tx. Pt agrees to PT at this time. pt reports 5/10 pain in her low back RN is aware. Pt/Family Goals Pt in recliner with feet up post-tx. Pt with cell phone, call light, and tray table in reach with all needs met at this time. Spouse present in room for duration of tx. Objective Patient Orientation: Person, Place, Time, Situation Attachments: IV ROM/Strength ROM Lower Extremities WNL Strength Lower Extremities Pt is inconsistent with strength testing this date. R hip flexion 4-/5, R Knee flexion 3+/5, R knee extension 4-/5, R dorsiflexion 3/5 L hip flexion 3+/5, L knee flexion 3+/5, L knee extension 4-/5, L dorsiflexion 3/5 Integumentary/Posture Integumentary See nursing notes. Bowel Incontinence: No Bladder Incontinence: No Sensory Vision: Functional (reading glasses only) Hearing: Functional Hand Dominance: Right Sensation Right Lower Extremit: Impaired Sensation Left Lower Extremity: Impaired Sensation Lower Extremities Pt has neuropathy B/L LE's. Pt can feel pressure down to the midfoot but reports she can't tell what is touching her feet. Pt reports L>R involvement. Transfers Roll Left to Right (QC): 4 (SBA) Sit to Lying (QC): 3 (George to get L LE into bed.) Lying to Sitting/Side of Bed(Q: 3 (modA. Pt attempted pulling up from PT but pushed up from bed with 1 arm) Sit to Stand (QC): 3 (ModA for majority of sit to stands. Pt has 2/3 stands that require only George) Chair/Psk-ui-Chvcg Xfer(QC): 3 (George. stand and stepping.) Car Transfer (QC): 3 (George only for L LE into car.) Cues for hand placement and positioning. Gait Does the Patient Walk?: Yes Mode of Locomotion: Both Anticipated Mode of Locomotion: Both Distance: 1=up to 49 ft Walk 10 feet (QC): 88 Walk 50 ft with 2 Turns(QC): 88 Walk 150 ft (QC): 88 Walking 10ft/uneven surface-QC: 88 Distance: 5' Gait Assistive Device: FWW Comments/Gait Description Pt takes short shuffled steps and is in a leaned forward posture for walking. Patient ambulated 5' using a rolling walker with CGA. Wheelchair Training Does the Pt Use a Wheelchair?: Yes Distance: 150'x2 Wheel 50 ft with 2 turns (QC): 6 Wheel 150 ft (QC): 6 Type of Wheelchair: Manual Pt is slow but is able to maneuver around obstacles and turn into doors. Stairs 1 Step (curb) (QC): 88 4 Steps (QC): 88 12 Steps (QC): 88 Patient is only able to ambulate a few feet and cannot safely go up and down 1 step at this time. Balance Sitting Static: Normal Sitting Dynamic: Normal Standing Static: Poor Standing Dynamic: Poor Picking up an Object (QC): 88 Treatment Pt performed skilled ambulation training, functional transfer training, wheel chair training, education, and LE strengthening exercises (all seated 2 sets of 10: ankle pumps, marching, LAQ, hip abduction with red tbd, hip adduction with soccerball) Assessment/Needs Pt fatigues quickly and becomes SOB. Pt can only anton very little time standing and can not give much warning as to when she needs to sit. Pt has very little eccentric control for stand to sit and tends to sit very fast. Pt requires multiple cues to push up from the surface she is standing from and reaching for the surface she is sitting to. Rehab Potential: Fair PT Short Term Goals Short Term Goals Time Frame: Apr 19, 2019 Gait Distance Comment: 10' Gait Assistive Device: FWW (CGA) PT Residential Goals Residential Goals PT Head Inspector Goals Time Frame: May 03, 2019 Sit to Lying (QC): 4 (SBA) Lying-Sitting on Side/Bed(QC): 4 (SBA) Sit to Stand (QC): 4 (SBA) Roll Left to Right (QC): 6 Chair/Twu-ul-Slkdr Xfer(QC): 4 (SBA) Car Transfer (QC): 4 (SBA) Does the Patient Walk: Yes Distance: 50' Walk 10 feet (QC): 4 (SBA) Walk 10ft-Uneven Surface(QC): 4 (CGA) Walk 50ft with 2 Turns (QC): 4 (SBA) Walk 150 ft (QC): 88 Gait Assistive Device: FWW Does the Pt use WC or Scooter?: Yes Distance: 300' Wheel 50 feet with 2 turns (QC: 6 # of Steps: 1 1 Step (curb) (QC): 3 PT Plan Problem List Problem List: Activity Tolerance, Functional Strength, Safety, Balance, Gait, Transfer, Bed Mobility Treatment/Plan Treatment Plan: Continue Plan of Care Treatment Plan: Bed Mobility, Concurrent Therapy, Education, Functional Activity Arabella, Functional Strength, Group Therapy, Gait, Safety, Therapeutic Exercise, Transfers Frequency: At least 5 of 7 days/Wk (IRF) Estimated Hrs Per Day: 1.5 hours per day Patient and/or Family Agrees t: Yes Safety Risks/Education Patient Education: Gait Training, Transfer Techniques, Steps, Correct Positioning, W/C Management, Safety Issues Teaching Recipient: Patient Teaching Methods: Demonstration, Discussion Response to Teaching: Return Demonstration, Reinforcement Needed Discharge Recommendations Plan Pt will perform skilled gait training, functional transfer training, LE strengthening/endurance training, and education while in rehab. Therapy Discharge Recommendati: Homemaker Support, Other, See Comments (home with spouse) Equpiment Recommendations-D/C: Front Wheeled Walker, Manual Wheelchair Time/GCodes Time In: 1115 Time Out: 1215 Total Billed Treatment Time: 60 Total Billed Treatment 1 visit EVM 30' FA 30' FRANCISCA MAHONEY PT Apr 12, 2019 12:14 POS
--- NOTE | 2019-04-12 12:59 | PM&R H&P / Post Admit Assess ---
History of Present Illness HPI/Chief Complaint Chief complaint: Fall with subsequent debility. HPI: This is a 78[address] Clay who has a PMH of CAD, DM, HTN, and chronic back pain who presented to the ER due to falls and weakness found to have a UTI, and had suffered a fall at home which resulted in severe back pain, unable to be managed at home after she had laid on the bathroom floor for 1.5 hours before her found her. She was accessed in the ER, admitted and placed on broad spectrum antibiotics of Rocephin, supportive care and consulted PT and OT who evaluated her to be in need of strengthening in order to ultimately get back to baseline of prior level of functioning and return home. Her prior level of functioning includes ambulation with a walker and she lives at home with her of 58 years. 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 At this current time we did talk about her Hydrocodone that she takes on a regular basis, and I have reviewed urine cultures and blood cultures, so specific bacteria that will need to have continued antibiotic treatment for so those will be discontinued in addition IV fluids will be discontinued since she is consuming adequate oral intake. Source: patient, RN/MD, old records Exam Limitations: no limitations Date Seen 04/12/19 Time Seen by a Provider: 11:00 Attending Physician Jacqueline Vargas Holly A MD Referring Physician Date of Admission Apr 12, 2019 at 10:40 Home Medications & Allergies Home Medications Reviewed patient Home Medication Reconciliation performed by pharmacy medication reconciliations legal technician and/or nursing. Patients Allergies have been reviewed. 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) Alcohol Use: Denies Use Recreational Drug Use: No Smoking Status: Never a Smoker Former Smoker, Quit: Mar 27, 1988 Type Used: Cigarettes 2nd Hand Smoke Exposure: No Physical Abuse Screen: No Sexual Abuse: No Recent Foreign Travel: No Contact w/other who traveled: No Recent Hopitalizations: Yes Recent Infectious Disease Expo: No Immunizations Up To Date Pediatric: Yes Date of Pneumonia Vaccine: November 01, 2008 Date of Influenza Vaccine: Apr 12, 2019 Seasonal Allergies Seasonal Allergies: No Past Medical History Surgeries: Adenoidectomy, Appendectomy, Cardiac, Eye Surgery, Gallbladder, Hysterectomy, Oophorectomy, Orthopedic, Tonsillectomy Cardiac: Coronary Artery Disease, High Cholesterol, Hypertension Neurological: Neuropathy Reproductive: Yes (ENDOMETRIAL CANCER--S/P HYST/BSO) Hysterectomy, Menopausal Gastrointestinal: Hepatitis, Ulcer Musculoskeletal: Degenerate Disk Disease, Arthritis, Back Injury, Chronic Back Pain Endocrine: Diabetes, Insulin dep HEENT: Cataract Loss of Vision: Denies Hearing Impairment: Denies Cancer: Uterine Did You Recieve Any Treatments: Yes What Type of Treatment Did You: Surgical Intervention History of Blood Disorders: No Family History Patient reports no known family medical history. Review of Systems Constitutional: see HPI, weakness EENTM: no symptoms reported Respiratory: no symptoms reported Cardiovascular: no symptoms reported Gastrointestinal: no symptoms reported Genitourinary: frequency Musculoskeletal: back pain Skin: no symptoms reported Psychiatric/Neurological: Depressed All Other Systems Reviewed Negative Unless Noted: Yes Physical Exam Exam Vital Signs Vital Signs Date Time Temp Pulse Resp B/P (MAP) Pulse Ox O2 Delivery O2 Flow Rate FiO2 04/13/19 05:33 36.8 52 16 119/66 (83) 99 Nasal Cannula 3.00 Capillary Refill : General Appearance: No Apparent Distress, WD/WN, Chronically ill, Obese HEENT: PERRL/EOMI, Normal ENT Inspection, Pharynx Normal, Moist Mucous Membranes Neck: Full Range of Motion, Normal Inspection, Non Tender, Supple Respiratory: Chest Non Tender, Lungs Clear, Normal Breath Sounds, No Accessory Muscle Use, No Respiratory Distress Cardiovascular: Regular Rate, Rhythm, No Edema, No Gallop, No JVD, No Murmur Gastrointestinal: Normal Bowel Sounds, No Organomegaly, No Pulsatile Mass, Non Tender, Soft Back: Normal Inspection, No CVA Tenderness, No Vertebral Tenderness Extremity: Normal Capillary Refill, Normal Inspection, Normal Range of Motion, Non Tender, No Calf Tenderness, No Pedal Edema Neurologic/Psychiatric: Alert, Oriented x3, No Motor/Sensory Deficits (generalized weakness lower extremities), Normal Mood/Affect Skin: Normal Color, Warm/Dry Lymphatic: No Adenopathy Results Results/Procedures Labs Laboratory Tests 04/13/19 04:45 Patient resulted labs reviewed. Assessment/Plan Assessment and Plan Assess & Plan/Chief Complaint Assessment: Fall with debility DM HTN CAD s/p UTI Chronic back pain Plan: DC abx Home meds Pain meds IRF protocol (1) Debility (2) Vertigo Status: Acute (3) Left leg weakness Status: Acute (4) CAD (coronary artery disease) Status: Chronic (5) Urinary tract infection Status: Acute (6) IDDM (insulin dependent diabetes mellitus) Status: Acute (7) HTN (hypertension) Status: Acute (8) Lower extremity weakness Status: Acute Post Admission Physician Asses Date seen by provider: Apr 12, 2019 Time seen by provider: 11:00 Admisison Dx: (1) Debility The preadmission screen agrees with the post admission assessment that the dia ent is a good candidate for inpatient rehabilitation. The patient will have a comprehensive program of inpatient rehabilitation with a goal of maximizing level of functional independence prior to discharge home with . The patient will have PT/OT ninety minutes per day, each discipline, five days a week for gait, strengthening, conditioning, balance, ADLs, any patient/family/caregiver training as necessary. Speech therapy to do cognitive assessment and treat as indicated. Rehabilitation nursing to assist with bowel, bladder, skin, wound care, medication administration, pain management. Building Carpenter to assist with discharge planning, community reentry. SCD's for DVT prophylaxis. She appears to be well motivated to participate in three hours of therapy a day. She should be able to tolerate three hours of therapy a day from a medical standpoint. She should benefit from the three hours of therapy a day. She has a reasonable discharge plan, reasonable discharge rehabilitation goals and a supportive family. She has various comorbidities that need to be closely monitored with medications and treatments adjusted on a daily basis as needed. These include: see list Barriers to discharge for this patient who had been independent prior to this are for her to be modified independent to supervision for ADLs and mobility skills prior to discharge home with , so as to lessen the burden of the caregivers. Risks for this patient include: 1. Fall 2. Fracture 3. DVT 4. Pulmonary embolism 5. Wound infection 6. Skin breakdown 7. Contractures 8. Poorly controlled pain 9. Urinary retention 10. UTI 11. Respiratory infection 12. Aspiration Estimated Length of Stay: 7 days Prognosis: Rehab prognosis appears good for goal of discharge home with modified independent to supervision for ADLs and mobility skills. JACQUELINE VARGAS DO Apr 12, 2019 12:59 POS
[2019-04-12] MEDS ORDERED: CATHETER FLUSH 10 ML SYR IV PRN (13:00)
[2019-04-12] MEDS ORDERED: MELATONIN 3 MG TABLET PO PRN (13:00)
[2019-04-12] MEDS ORDERED: ACETAMINOPHEN 500 MG TAB (TYLENOL) PO PRN (13:00)
[2019-04-12] MEDS ORDERED: CALCIUM CARBONATE 500 MG (TUMS) TAB.CHEW PO PRN (13:00)
[2019-04-12] MEDS ORDERED: ONDANSETRON 4 MG (ZOFRAN) ORAL DISSOLVE TAB PO PRN (13:00)
[2019-04-12] MEDS ORDERED: diphenhydrAMINE 25 MG TAB (BENADRYL) PO PRN (13:00)
[2019-04-12] MEDS ORDERED: RT-ALBUTEROL SULF 2.5 MG/3 ML PRE-MIX VIAL IH PRN (13:00)
[2019-04-12] MEDS ORDERED: DOCUSATE SODIUM 100 MG (COLACE) CAP PO PRN (13:00)
[2019-04-12] MEDS ORDERED: PATIENT MAY USE OWN MEDS, ALL MC SCH (13:00)
[2019-04-12] MEDS ORDERED: ALPRAZolam 0.25 MG (XANAX) TAB PO PRN (13:00)
--- NOTE | 2019-04-12 14:02 | Physical Therapy Daily Note ---
PT Daily Note-Current Subjective pt in chair pre-tx. Pt agrees to PT this afternoon. Pt denies pain at this time. Appearance pt in chair post-tx with feet down so she can eat.. pt with call light, room phone, and tray table in reach with all needs met. Mental Status Patient Orientation: Person, Place, Time, Situation Attachments: IV Transfers SCALE: Activities may be completed with or without assistive devices. 5-Yirmiexhvz-vnwpkls completes the activity by him/herself with no assistance fr om a helper. 5-Set-up or Clean-up Assistance-helper sets up or cleans up; patient completes activity. [place] assists only prior to or following the activity. 4-Supervision or Touching Assistance-helper provides verbal cues and/or touching/steadying and/or contact guard assistance as patient completes activity. Assistance may be provided throughout the activity or intermittently. 3-Partial/Moderate Assistance-helper does LESS THAN HALF the effort. [place] lifts, holds or supports trunk or limbs, but provides less than half the effort. 2-Substantial/Maximal Assistance-helper does MORE THAN HALF the effort. [place] lifts or holds trunk or limbs and provides more than half the effort. 8-Fosjulywo-mzsnwn does ALL the effort. Patient does none of the effort to complete the activity. Or, the assistance of 2 or more helpers is required for the patient to complete the activity. If activity was not attempted, code reason: 7-Patient Refused. 9-Not Applicable-not attempted and the patient did not perform the activity before the current illness, exacerbation or injury. 10-Not Attempted due to Environmental Limitations-(lack of equipment, weather restraints, etc.). 88-Not Attempted due to Medical Conditions or Safety Concerns. Sit to Stand (QC): 3 (modA. pt is inconsistant with assist needs from modA to CGA) Chair/Haz-tu-Flhse Xfer(QC): 3 (modA. Pt is inconsistant in assist needs from modA to CGA) Weight Bearing Right Lower Extremity: Right Full Weight Bearing Left Lower Extremity: Left Full Weight Bearing Wheelchair Training Does the Pt Use a Wheelchair?: Yes Wheelchair Distance: 3=150 ft Distance: 150' Wheel 50 ft with 2 turns (QC): 6 Wheel 150 ft (QC): 6 Type of Wheelchair: Manual pt has slow velocity with WCH Exercises NuStep Minutes: 9 NuStep Workload: 3 Treatments Pt performed LE stengthening/endurance training, transfer training, and WC training this session. Assessment Current Status: Fair Progress Pt continues to be inconsistent with assist needs for transfers at this time, pt may require modA for a transfer and then CGA for the next and goes back and forth. Pt has very little anton for time spent on feet. PT Short Term Goals Short Term Goals Time Frame: Apr 19, 2019 Gait Distance Comment: 10' Gait Assistive Device: FWW (CGA) Wheelchair Distance: 150'x2 PT Audio Technician Goals Audio Technician Goals PT Audio Technician Goals Time Frame: May 03, 2019 Sit to Lying (QC): 4 (SBA) Lying-Sitting on Side/Bed(QC): 4 (SBA) Sit to Stand (QC): 4 (SBA) Roll Left to Right (QC): 6 Chair/Apb-nt-Oknwi Xfer(QC): 4 (SBA) Car Transfer (QC): 4 (SBA) Does the Patient Walk: Yes Distance: 50' Walk 10 feet (QC): 4 (SBA) Walk 10ft-Uneven Surface(QC): 4 (CGA) Walk 50ft with 2 Turns (QC): 4 (SBA) Walk 150 ft (QC): 88 Gait Assistive Device: FWW Does the Pt use WC or Scooter?: Yes Distance: 300' Wheel 50 feet with 2 turns (QC: 6 # of Steps: 1 1 Step (curb) (QC): 3 PT Plan Problem List Problem List: Activity Tolerance, Functional Strength, Safety, Balance, Gait, Transfer, Bed Mobility Treatment/Plan Treatment Plan: Continue Plan of Care Treatment Plan: Bed Mobility, Concurrent Therapy, Education, Functional Activity Arabella, Functional Strength, Group Therapy, Gait, Safety, Therapeutic Exercise, Transfers Frequency: At least 5 of 7 days/Wk (IRF) Estimated Hrs Per Day: 1.5 hours per day Patient and/or Family Agrees t: Yes Safety Risks/Education Patient Education: Gait Training, Transfer Techniques, Correct Positioning, W/C Management, Safety Issues Teaching Recipient: Patient Teaching Methods: Demonstration, Discussion Response to Teaching: Verbalize Understanding, Return Demonstration, Reinforcement Needed Time/GCodes Time In: 1330 Time Out: 1400 Total Billed Treatment Time: 30 Total Billed Treatment 1 visit [facility] 10' FA 20' FRANCISCA MAHONEY PT Apr 12, 2019 14:02 POS
[2019-04-12] MEDS: inSUlin ASPART (NovoLOG) 1 UNIT/0.01 ML (CHARGE PER UNIT) SC SCH ×3 (17:00→21:10)
[2019-04-12] MEDS: OMEGA 3 (FISH OIL) 1000 MG CAP PO SCH (17:34)
[2019-04-12 18:00] VITALS: BP 127/68
[2019-04-12 20:00] VITALS: BP 122/71
[2019-04-12] MEDS ORDERED: SENNA W/DOCUSATE (SENOKOT S) TABLET PO SCH (21:00)
[2019-04-12] MEDS: RANOLAZINE ER 500 MG TAB (RANEXA) PO SCH (21:07)
[2019-04-12] MEDS: SENNA W/DOCUSATE (SENOKOT S) TABLET PO SCH (21:08)
[2019-04-12] MEDS: HYDROcodone/APAP 10 MG/325 MG (LORTAB) TAB PO PRN (21:08)
[2019-04-12] MEDS: diphenhydrAMINE 25 MG TAB (BENADRYL) PO SCH (21:08)
[2019-04-12] MEDS: ROSUVASTATIN 10 MG (CRESTOR) TABLET PO SCH (21:08)
[2019-04-13 05:12] LABS: BASOPHILS % (AUTO) 1 % (0-10); EOSINOPHILS # (AUTO) 0.2 10^3/uL (0.0-0.3); EOSINOPHILS % (AUTO) 4 % (0-10); HEMATOCRIT 38 % (35-52); HEMOGLOBIN 12.8 G/DL (11.5-16.0); LYMPHOCYTES # (AUTO) 1.7 X 10^3 (1.0-4.0); LYMPHOCYTES % (AUTO) 32 % (12-44); MEAN CORPUSCULAR HEMOGLOBIN 33 PG (25-34); MEAN CORPUSCULAR HGB CONC 34 G/DL (32-36); MEAN CORPUSCULAR VOLUME 99 FL (80-99); MEAN PLATELET VOLUME 9.6 FL (7.4-10.4); MONOCYTES # (AUTO) 0.7 X 10^3 (0.0-1.0); MONOCYTES % (AUTO) 14 % (0-12); NEUTROPHILS # (AUTO) 2.6 X 10^3 (1.8-7.8); NEUTROPHILS % (AUTO) 50 % (42-75); PLATELET COUNT 132 10^3/uL (130-400); RED CELL DISTRIBUTION WIDTH 12.6 % (10.0-14.5); WHITE BLOOD COUNT 5.3 10^3/uL (4.3-11.0)
[2019-04-13 05:33] VITALS: BP 119/66
[2019-04-13 05:33] LABS: ALANINE AMINOTRANSFERASE 21 U/L (0-55); ALBUMIN 3.1 GM/DL (3.2-4.5); ALKALINE PHOSPHATASE 44 U/L (40-136); BILIRUBIN,TOTAL 0.6 MG/DL (0.1-1.0); BUN/CREATININE RATIO 15; CALCIUM 8.8 MG/DL (8.5-10.1); CARBON DIOXIDE 27 MMOL/L (21-32); CHLORIDE 101 MMOL/L (98-107); CREATININE SERUM 0.85 MG/DL (0.60-1.30); GFR ESTIMATED > 60; GLUCOSE 87 MG/DL (70-105); POTASSIUM 3.6 MMOL/L (3.6-5.0); SODIUM 138 MMOL/L (135-145); TOTAL PROTEIN 5.1 GM/DL (6.4-8.2)
[2019-04-13] MEDS: inSUlin ASPART (NovoLOG) 1 UNIT/0.01 ML (CHARGE PER UNIT) SC SCH ×5 (06:02→21:14)
[2019-04-13] MEDS: predniSONE 5 MG TAB PO SCH (06:26)
[2019-04-13] MEDS: OMEGA 3 (FISH OIL) 1000 MG CAP PO SCH ×3 (06:26→17:21)
[2019-04-13 08:19] VITALS: BP 119/71
[2019-04-13] MEDS: FUROSEMIDE 20 MG (LASIX) TAB PO SCH (08:19)
[2019-04-13] MEDS: SPIRONOLACTONE 25 MG (ALDACTONE) TAB PO SCH (08:20)
[2019-04-13] MEDS: amLODIPine 5 MG (NORVASC) TAB PO SCH (08:20)
[2019-04-13] MEDS: PANTOPRAZOLE 40 MG (PROTONIX) TAB PO SCH (08:20)
[2019-04-13] MEDS: LOSARTAN 25 MG (COZAAR) TAB PO SCH (08:20)
[2019-04-13] MEDS: SENNA W/DOCUSATE (SENOKOT S) TABLET PO SCH ×2 (08:20→21:11)
[2019-04-13] MEDS: ASPIRIN E.C. 81 MG (ECOTRIN) TAB PO SCH (08:21)
[2019-04-13] MEDS: VITAMIN D3 1,000 UNITS (CHOLECALCIFEROL) TABLET PO SCH (08:21)
--- NOTE | 2019-04-13 09:09 | PM&R Progress Note ---
Subjective HPI/CC On Admission Date Seen by Provider: Apr 13, 2019 Time Seen by Provider: 08:30 Chief complaint: Fall with subsequent debility. HPI: This is a 78[address] of [address] Clay who has a PMH of CAD, DM, HTN, and chronic back pain who presented to the ER due to falls and weakness found to have a UTI, and had suffered a fall at home which resulted in severe back pain, unable to be managed at home after she had laid on the bathroom floor for 1.5 hours before her found her. She was accessed in the ER, admitted and placed on broad spectrum antibiotics of Rocephin, supportive care and consulted PT and OT who ev aluated her to be in need of strengthening in order to ultimately get back to baseline of prior level of functioning and return home. Her prior level of functioning includes ambulation with a walker and she lives at home with her of 58 years. 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 At this current time we did talk about her Hydrocodone that she takes on a regular basis, and I have reviewed urine cultures and blood cultures, so specific bacteria that will need to have continued antibiotic treatment for so those will be discontinued in addition IV fluids will be discontinued since she is consuming adequate oral intake. Subjective/Events-last exam Pt doing very well Labs are normal Wheezing a bit so will start Albuterol Nebulizer treatments BID and she does have those at home that she takes at times Does feel like she has asthma Pain is well controlled BP is stable Conferred with RN Reviewed therapy notes Checked meds and labs Review of Systems General: Fatigue Pulmonary: Dyspnea Objective Exam Vital Signs Vital Signs Date Time Temp Pulse Resp B/P (MAP) Pulse Ox O2 Delivery O2 Flow Rate FiO2 04/13/19 09:00 Room Air 04/13/19 08:19 66 119/71 (87) 04/13/19 05:33 36.8 16 99 3.00 Capillary Refill : General Appearance: No Apparent Distress, WD/WN, Chronically ill, Obese HEENT: PERRL/EOMI, Normal ENT Inspection, Pharynx Normal, Moist Mucous Membranes Neck: Full Range of Motion, Normal Inspection, Non Tender, Supple Respiratory: Chest Non Tender, Normal Breath Sounds, No Accessory Muscle Use, No Respiratory Distress, Wheezing (upper airway) Cardiovascular: Regular Rate, Rhythm, No Edema, No Gallop, No JVD, No Murmur Gastrointestinal: Normal Bowel Sounds, No Organomegaly, No Pulsatile Mass, Non Tender, Soft Back: Normal Inspection, No CVA Tenderness, No Vertebral Tenderness Extremity: Normal Capillary Refill, Normal Inspection, Normal Range of Motion, Non Tender, No Calf Tenderness, No Pedal Edema Neurologic/Psychiatric: Alert, Oriented x3, No Motor/Sensory Deficits (generalized weakness lower extremities), Normal Mood/Affect Skin: Normal Color, Warm/Dry Lymphatic: No Adenopathy Results/Procedures Lab Laboratory Tests 04/13/19 04:45 Patient resulted labs reviewed. FIM Transfers Therapy Code Descriptions/Definitions Functional Mission Measure: 0=Not Assessed/NA 4=Minimal Assistance 1=Total Assistance 5=Supervision or Setup 2=Maximal Assistance 6=Modified Mission 3=Moderate Assistance 7=Complete IndependenceSCALE: Activities may be completed with or without assistive devices. 5-Qbxzqztqzy-ednivhk completes the activity by him/herself with no assistance from a helper. 5-Set-up or Clean-up Assistance-helper sets up or cleans up; patient completes activity. [place] assists only prior to or following the activity. 4-Supervision or Touching Assistance-helper provides verbal cues and/or touching/steadying and/or contact guard assistance as patient completes activity. Assistance may be provided throughout the activity or intermittently. 3-Partial/Moderate Assistance-helper does LESS THAN HALF the effort. [place] lifts, holds or supports trunk or limbs, but provides less than half the effort. 2-Substantial/Maximal Assistance-helper does MORE THAN HALF the effort. [place] lifts or holds trunk or limbs and provides more than half the effort. 1-Gaffoktie-wibkpv does ALL the effort. Patient does none of the effort to c omplete the activity. Or, the assistance of 2 or more helpers is required for the patient to complete the activity. If activity was not attempted, code reason: 7-Patient Refused. 9-Not Applicable-not attempted and the patient did not perform the activity before the current illness, exacerbation or injury. 10-Not Attempted due to Environmental Limitations-(lack of equipment, weather restraints, etc.). 88-Not Attempted due to Medical Conditions or Safety Concerns. Roll Left to Right (QC): 4 (SBA) Sit to Lying (QC): 3 (George to get L LE into bed.) Sit to Stand (QC): 3 (modA. pt is inconsistant with assist needs from modA to CGA) Chair/Trz-el-Lhixq Xfer(QC): 3 (modA. Pt is inconsistant in assist needs from modA to CGA) Car Transfer (QC): 3 (George only for L LE into car.) Gait Training Does the Patient Walk?: Yes Distance (FIM): 1=up to 49 ft Walk 10 feet (QC): 88 Walk 50 ft with 2 Turns(QC): 88 Walk 150 ft (QC): 88 Walking 10ft/uneven surface-QC: 88 Gait Assistive Device: FWW Wheelchair Training Does the Pt Use a Wheelchair?: Yes Wheelchair Distance: 3=150 ft Distance: 150' Wheel 50 ft with 2 turns (QC): 6 Wheel 150 ft (QC): 6 Type of Wheelchair: Manual Stair Training 1 Step (curb) (QC): 88 4 Steps (QC): 88 12 Steps (QC): 88 Balance Picking up an Object (QC): 88 ADL-Treatment Eating (QC): 6 Oral Hygiene (QC): 6 (Completes while seated in w/c. ) Lower Body Dressing (QC): 3 (min A threading 1 foot, assist in pulling up due to decreased balance and standing tolerance. ) On/Off Footwear (QC): 4 (SBA due to decreased balance. Pt brings foot across lap, attempts multiple times prior to mastery.) Toileting Hygiene (QC): 3 ( Pt completes jose alejandro hygiene after urination while seated. Pt decreased standing tolerance; based on clinical judgement pt would be mod-min A for BM clean up. ) Toilet Transfer (QC): 4 (CGA) Assessment/Plan Assessment and Plan Assess & Plan/Chief Complaint Assessment: Fall with debility DM HTN CAD s/p UTI Chronic back pain Wheezing Plan: DC abx Home meds Pain meds IRF protocol Nebs (1) Debility (2) Urinary tract infection Status: Acute (3) IDDM (insulin dependent diabetes mellitus) Status: Acute (4) CAD (coronary artery disease) Status: Chronic (5) Vertigo Status: Acute (6) HTN (hypertension) Status: Acute (7) Left leg weakness Status: Acute CHELY ESPARZA DO Apr 13, 2019 09:09 POS
[2019-04-13] MEDS ORDERED: METHYLNALTREXONE 12 MG/0.6 ML (RELISTOR) VIAL SQ NR (09:24)
[2019-04-13] MEDS ORDERED: KCL 20 MEQ TAB (K-DUR) PO NR (09:25)
--- NOTE | 2019-04-13 09:32 | Physical Therapy Daily Note ---
PT Daily Note-Current Subjective Patient agrees to PT at this time. Patient is in bed and reports that her legs are swollen from sitting with her legs down too long yesterday and her back is hurting. Pt. states she had a back surgery in 2006 that left her unable to walk further than 55 ft these past 12 years Pain Numeric Pain Scale: 7 Location: Lower Location Body Site: Back Pain Description: Ache Mental Status Patient Orientation: Person, Place, Time, Situation, Normal For Age Transfers SCALE: Activities may be completed with or without assistive devices. 3-Vazzuczkkn-kpckeqf completes the activity by him/herself with no assistance from a helper. 5-Set-up or Clean-up Assistance-helper sets up or cleans up; patient completes activity. [place] assists only prior to or following the activity. 4-Supervision or Touching Assistance-helper provides verbal cues and/or touching/steadying and/or contact guard assistance as patient completes activity. Assistance may be provided throughout the activity or intermittently. 3-Partial/Moderate Assistance-helper does LESS THAN HALF the effort. [place] lifts, holds or supports trunk or limbs, but provides less than half the effort. 2-Substantial/Maximal Assistance-helper does MORE THAN HALF the effort. [place] lifts or holds trunk or limbs and provides more than half the effort. 8-Cbeqdvaeg-qnirhs does ALL the effort. Patient does none of the effort to complete the activity. Or, the assistance of 2 or more helpers is required for the patient to complete the activity. If activity was not attempted, code reason: 7-Patient Refused. 9-Not Applicable-not attempted and the patient did not perform the activity before the current illness, exacerbation or injury. 10-Not Attempted due to Environmental Limitations-(lack of equipment, weather restraints, etc.). 88-Not Attempted due to Medical Conditions or Safety Concerns. Transfers (B, C, W/C): 3 Roll Left to Right (QC): 3 Sit to Stand (QC): 3 pt. has adjustable bed at home and puts head of bed up to exit bed. will attempt to simulate pts home situation for her Rx TRF skills Weight Bearing Right Lower Extremity: Right Full Weight Bearing Left Lower Extremity: Left Full Weight Bearing Gait Training Does the Patient Walk?: Yes Gait: 3 Distance: 5' Gait Assistive Device: FWW Patient states she is only able to ambulate 5' before feeling shaky and weak and needing to sit. Slow, step to pattern, flexed posture over device, heavy wt bearing on FWW. Pt. was followed closely by w/c as she begins to sit "melt" quickly with little warning Wheelchair Training Does the Pt Use a Wheelchair?: Yes Distance: 30' Type of Wheelchair: Manual Exercises Supine Ex: Ankle pumps, Quad Set, Glut sets, Heel Slides, Scooting, Straight leg raise, Hip abd/add Supine Reps: 10 Seated Therapy Exercises: Sit to stand Seated Reps: 5 Assessment Current Status: Good Progress Patient able to perform all bed level exercises well with no assistance, only requiring cues to begin exercises, demonstrating good strength. Patient able to sit to EOB with assistance and elevated HOB and stand with bed height elevated. Patient only able to tolerate standing or walking with FWW for very short periods of time. Patient ambulated 5' with FWW before wanting to sit. Able to perform 5 repetitions of sit to stands from wheelchair with some difficulty. Pt. loves to talk and visit and is distracted from Rx time to share and talk. This BREASTER feels pt. can make gains beyond 55ft that she states was her standard dist at home PT Short Term Goals Short Term Goals Time Frame: Apr 19, 2019 Gait Distance Comment: 10' Gait Assistive Device: FWW (CGA) Wheelchair Distance: 150' PT Senior Living Goals Dividing Machine Operator Goals PT Dividing Machine Operator Goals Time Frame: May 03, 2019 Sit to Lying (QC): 4 (SBA) Lying-Sitting on Side/Bed(QC): 4 (SBA) Sit to Stand (QC): 4 (SBA) Roll Left to Right (QC): 6 Chair/Seb-ne-Pgzgt Xfer(QC): 4 (SBA) Car Transfer (QC): 4 (SBA) Does the Patient Walk: Yes Distance: 50' Walk 10 feet (QC): 4 (SBA) Walk 10ft-Uneven Surface(QC): 4 (CGA) Walk 50ft with 2 Turns (QC): 4 (SBA) Walk 150 ft (QC): 88 Gait Assistive Device: FWW Does the Pt use WC or Scooter?: Yes Distance: 300' Wheel 50 feet with 2 turns (QC: 6 # of Steps: 1 1 Step (curb) (QC): 3 PT Plan Treatment/Plan Treatment Plan: Continue Plan of Care Treatment Plan: Bed Mobility, Concurrent Therapy, Education, Functional Activity Arabella, Functional Strength, Group Therapy, Gait, Safety, Therapeutic Exercise, Transfers Frequency: At least 5 of 7 days/Wk (IRF) Estimated Hrs Per Day: 1.5 hours per day Patient and/or Family Agrees t: Yes Safety Risks/Education Patient Education: Gait Training, Transfer Techniques, Correct Positioning, Disease Process, Safety Issues Teaching Recipient: Patient Teaching Methods: Demonstration, Discussion Response to Teaching: Verbalize Understanding, Return Demonstration, Reinforcement Needed Time/GCodes Time In: 845 Time Out: 930 Total Billed Treatment Time: 45 Total Billed Treatment 1 visit EX 15min GT 15min FA 15min KEVAN SOUZA BREASTER Apr 13, 2019 09:32 POS
--- NOTE | 2019-04-13 10:27 | Progress Note ---
LISPAT VILLANUEVA [facility] 04/13/19 1027: Progress Note CC: Leg weakness * Pt reports being very tired yesterday after coming down to the rehab unit and beginning her therapy * She states she was able to stand up from the bed and transfer to the wheelchair with minimal assistance * She was able to transfer back and forth form the wheelchair to the toilet as well with mainly assistance in aiming where to sit * She states she was able to take about 5 steps yesterday using the walker * She reports sleeping good due to being so worn out * She is motivated to continue her therapy * She was not currently using any O2 JACQUELINE ESPARZA DO 04/13/19 1650: Supervisory-Addendum Brief Verification & Attestation Participated in pt care: history, MDM, physical Personally performed: exam, history, MDM, supervision of care Care discussed with: Medical Student Procedures: n/a Results interpretation: Verified all documentation Verification and Attestation of Medical Student E/M Service A medical student performed and documented this service in my presence. I reviewed and verified all information documented by the medical student and made modifications to such information, when appropriate. I personally performed the physical exam and medical decision making. Jacqueline Esparza, Apr 13, 2019,16:50 [facility] CAR[facility] Apr 13, 2019 10:27 JACQUELINE CHRIS DO Apr 13, 2019 16:50 POS
[2019-04-13] MEDS: ROSUVASTATIN 10 MG (CRESTOR) TABLET PO SCH (10:29)
[2019-04-13] MEDS: RANOLAZINE ER 500 MG TAB (RANEXA) PO SCH ×2 (10:35→21:10)
--- NOTE | 2019-04-13 10:55 | NUR ---
Pastoral care visit.
--- NOTE | 2019-04-13 11:12 | Occupational Ther Daily Note ---
OT Current Status-Daily Note Subjective Pt seen in recliner chair, states minimal angina at start of session. Pt's vitals assessed: BP 132/73, 02 96%. Nursing notified of pt's complaint of angina. Pt states she has been "wheezy" and could not find inhaler within room, nursing notified. Pt agreeable to OT tx session. Mental Status/Objective Patient Orientation: Normal For Age ADL-Treatment Therapy Code Descriptions/Definitions Functional [place] Measure: 0=Not Assessed/NA 4=Minimal Assistance 1=Total Assistance 5=Supervision or Setup 2=Maximal Assistance 6=Modified [place] 3=Moderate Assistance 7=Complete IndependenceSCALE: Activities may be completed with or without assistive devices. 1-Qsuzalkgqm-eebhypw completes the activity by him/herself with no assistance from a helper. 5-Set-up or Clean-up Assistance-helper sets up or cleans up; patient completes activity. [place] assists only prior to or following the activity. 4-Supervision or Touching Assistance-helper provides verbal cues and/or touching/steadying and/or contact guard assistance as patient completes activity. Assistance may be provided throughout the activity or intermittently. 3-Partial/Moderate Assistance-helper does LESS THAN HALF the effort. [place] lifts, holds or supports trunk or limbs, but provides less than half the effort. 2-Substantial/Maximal Assistance-helper does MORE THAN HALF the effort. [place] lifts or holds trunk or limbs and provides more than half the effort. 8-Hnnlnvods-dtggzf does ALL the effort. Patient does none of the effort to complete the activity. Or, the assistance of 2 or more helpers is required for the patient to complete the activity. If activity was not attempted, code reason: 7-Patient Refused. 9-Not Applicable-not attempted and the patient did not perform the activity before the current illness, exacerbation or injury. 10-Not Attempted due to Environmental Limitations-(lack of equipment, weather restraints, etc.). 88-Not Attempted due to Medical Conditions or Safety Concerns. Eating (QC): 6 (drinks from straw) Shower/Bathe Self (QC): 3 (Pt completes sponge bath in recliner chair, able to complete with assist with back ( completes at home), and bottom in standing. Pt able to complete jose alejandro hygiene in stance. ) Upper Body Dressing (QC): 5 (s/u) Lower Body Dressing (QC): 3 (Pt requires CGA in stance during doffing/donning undergarments. Pt requires assist pulling up in back. ) on/off footwear: 6 edge of chair, increased time Other Treatment Pt completes sponge bath in recliner chair. Pt requires multiple redirections for attention to task throughout session. Pt requires skilled cues for energy conservation and sequencing of tasks to conserve energy. Sit to stand with CGA and CGA in stance. Pt requests lotion for dry legs, dons. Pt state she is "worn out" end of session, no angina at end of session. Pt left in recliner chair, call light in reach, all needs met. Education OT Patient Education: Correct positioning, Energy conservation, Modified ADL techniques, Purpose of tx/functional activities, Rehab process, Safety issues Teaching Recipient: Patient Teaching Methods: Demonstration, Discussion Response to Teaching: Verbalize Understanding, Return Demonstration, Reinforcement Needed OT Short Term Goals Short Term Goals Upper Body Dressing(FIM): 4 (met) Lower Body Dressing(FIM): 4 (met) Transfers (B,C,W/C) (FIM): 5 Additional Short Term Goals: 1-Demonstrate ADL Tasks, 2-Verbalize U nderstanding, 3-ImproveStrength/Arabella 1=Demonstrate adherence to instructed precautions during ADL tasks. 2=Patient will verbalize/demonstrate understanding of assistive devices/modifications for ADL. 3=Patient will improve strength/tolerance for activity to enable patient to perform ADL's. OT Certified Nurse Practitioner Goals Certified Nurse Practitioner Goals Eating (QC): 6 (met) Oral Hygiene (QC): 6 Shower/Bathe Self (QC): 4 Upper Body Dressing (QC): 6 Lower Body Dressing (QC): 6 On/Off Footwear (QC): 6 (met) Toileting Hygiene (QC): 6 Toilet/Commode Transfer (QC): 6 Additional Goals: 1-Demonstrate ADL Tasks, 2-Verbalize Understanding, 3- ImproveStrength/Arabella 1=Demonstrate adherence to instructed precautions during ADL tasks. 2=Patient will verbalize/demonstrate understanding of assistive devices/modifications for ADL. 3=Patient will improve strength/tolerance for activity to enable patient to perform ADL's. OT Education/Plan Problem List/Assessment Assessment: Decreased Activ Tolerance, Decreased UE Strength, Dependent Transfers, Impaired Funct Balance, Impaired I ADL's, Impaired Self-Care Skills Discharge Recommendations Plan/Recommendations: Continue POC Therapy Discharge Recommendati: Scheduled Assistance Treatment Plan/Plan of Care Treatment,Training & Education: Yes Patient would benefit from OT for education, treatment and training to promote independence in ADL's, mobility, safety and/or upper extremity function for ADL's. Plan of Care: ADL Retraining, Caregiver Training, Concurrent Therapy, Functional Mobility, Group Exercise/Act as Ind, UE Funct Exercise/Act Treatment Duration: Apr 26, 2019 Frequency: At least 5 of 7 days/Wk (IRF) Estimated Hrs Per Day: 1.5 hours per day Agreement: Yes Rehab Potential: Fair Time/GCodes Start Time: 09:30 Stop Time: 10:30 Total Time Billed (hr/min): 60 Billed Treatment Time 1, ADL x4 (60) PREMA RODRIGUEZ OTR Apr 13, 2019 11:12 POS
[2019-04-13] MEDS: HYDROcodone/APAP 10 MG/325 MG (LORTAB) TAB PO PRN ×2 (11:28→21:11)
--- NOTE | 2019-04-13 12:58 | ST Cognitive Linguistic Eval ---
Speech Evaluation-General Medical Diagnosis debility Onset Date: Apr 09, 2019 Therapy Diagnosis Therapy Diagnosis: Cognitive-communication Referral Referring Physician: Dr. Vargas Medical History Pertinent Medical History: CAD, COPD, DM, HTN, Neuropathy Reviewed History: Yes Social History Current Living Status: Spouse Speech PLF-Current Status Prior Level of Function Patient lived at home with her and was independent for most of her daily needs. Subjective Patient was cooperative with the cognitive assessment. Language Eval: Auditory Comprehends Simple Yes/No Ques: Functional Indent/Objects Multiple [place]: Functional Ident/Pics in Multiple [place]: Functional Follows 1-Step Commands: Functional Follows Complex Directions: Functional Follows General Conversations: Functional Language Eval: Verbal Language Completes Spontaneous Greeting: Functional Produces Auto, Serial Info: Functional Imitates Simple Words/Phrases: Functional Word Finding: Functional Requests Basic Needs: Functional States Basic Personal Info: Functional Expresses Complex Ideas: Functional Objective Cognitive Domain Attention: WNL Memory: WNL Problem Solving: Functional Executive Functions: WNL Visuospatial Skills: WNL Composite Severity Rating: WNL Clock Drawing Severity Rating: WNL Objective Formal/Standardized Tests [facility] Mental Status ([facility]) Results 30/30, normal range of function Oral Motor/Speech Production Within Functional Limits Impression Patient is a pleasant 78 year old woman admitted to the ARU. Patient was given the SLUMS with a score of 30/30. Patient does not require skilled ST at this time. Speech Patient Assess Expression of Ideas/Wants: Expression (4) Understanding Verbal Content: Understands (4) Brief Interview-Mental Status: Yes Repetition of Three Words: Three (3) Temporal Orientation: Year: Correct (3) Temporal Orientation: Month: Accurate within 5 days(2) Temporal Orientation: Day: Correct (1) Recall : Wear to say "Sock": Yes, no cue required (2) Recall : Color: Yes, no cue required (2) Recall : Bed: Yes, no cue required (2) Memory/Recall Ability: Current season, Location of own room, Staff names and faces, That he or she is in a hsp/hsp unit Speech-Plan Patient/Family Goals Patient/Family Goals: Patient plans on returning home with her upon hospital discharge. Treatment Plan Speech Therapy Treatment Plan: Discontinue ST Patient does not require skilled ST services. Treatment Duration: Apr 13, 2019 Frequency: 1 time per week Estimated Hrs Per Day: .25 hour per day Rehab Potential: Fair Barriers to Learning: None identified Pt/Family Agrees to Plan: Yes Safety Risks/Education Teaching Recipient: Patient Teaching Methods: Discussion Response to Teaching: Verbalize Understanding Education Topics Provided: Safety within her room. Time Speech Therapy Time In: 10:30 Speech Therapy Time Out: 10:45 Total Billed Time: 15 Billed Treatment Time 1, CECE Menjivar Apr 13, 2019 12:58 POS
--- NOTE | 2019-04-13 14:46 | Therapy Group Daily Note ---
Therapy Daily Group Note Patient Education Topic Other List Below (memeory and strategies) Exercises LE Seated Exercise, UE Exercise Session Ratio (pt:therapist): 4:1 Goal of Session: Education on ARU Expectations, Memory Strategies Goal Met for this Session: Yes Pt Benefit of Group: Contributions to Others, Increased Functional Safety, Increased Functional Strength, Improved Cognition, Socialization Other/Notes Pt. participated in group PT OT session . Pt. came went via w/c with assist. Pt. was social and participated sharing name and contributing to exercises session by demonstrating exercises from written illustrated card. Pt. also active participant in memory activity utilizing matching images challenge. Pts were reviewed in the routines and expectations of ARU. Pt. to room after group with assist to bed , call ball at hand Start Time: 13:00 Stop Time: 14:15 Total Billed Treatment Time: 75 Total Billed Treatment 1,GRP KEVAN SOUZA [employer] INTERN Apr 13, 2019 14:46 POS
--- NOTE | 2019-04-13 15:53 | NUR ---
RD ASSESSMENT PMHx: CAD; HTN; DM; CA(uterine); hypercholesterolemia PT INTERACTION: Pt was awake and pleasant during nutrition assessment. Pt states current appetite is pretty good and has been for some time. Pt states following "low CHO, more protein" diet at home, and has no difficulties chewing/swallowing at this time. Pt states some issues with n/v at this time, attributing it to overeating and her "gastroparesis", per pt. Pt states some concerns with constipation, stating that she has a BM "about every 3rd day." No BM recorded today. Pt states recent 10# wt gain x3mon. Note unable to determine recent wt hx, per chart review. Upon visual exam, pt appears to be very well nourished with no visible signs of muscle/fat wasting and BMI of 29.0. ABNORMAL NUTRITION-RELATED LAB VALUES: AST 48 (H); Pro 5.1 (L); alb 3.1 (L) Est. kcal needs: 7245-9650 kcal (15-20 kcal/kg) Est. Pro needs: 86-108 g Pro (0.8-1.0 g Pro/kg) PES STATEMENT: Altered GI Function (NC-1.4) related to constipation as evidenced by pt interview INTERVENTION: Continue with current diet order of CHO 60g/m 3snack diet. Pt may benefit from more aggressive bowel regimen, if constipation continues. MONITOR/EVALUATE: PO Intake; Plan of Care; Hydration Status; Weight Status; Lab Values; Stool Output Dana Archuleta, MS, RD, LD Ext. [phone]
--- NOTE | 2019-04-13 16:55 | Individualized Plan of Care ---
Individualized Plan of Care Rehab Nursing IPOC Order Admission Date Apr 12, 2019 at 10:40 Current Orders Orders Admission Order(Inpt,Obs,Sdc) (04/12/19 10:06) Vital Signs: Per Unit Policy ( 08,16,00 (04/12/19 10:06) Car Carder-Inpt Rehab Con (04/12/19 10:06) Rehab Nursing Orders-Ipoc (04/12/19 10:06) Physical Therapy Rehab Orders (04/12/19 10:06) Occupational Therapy Rehab Ord (04/12/19 10:06) Speech Therapy Rehab Orders (04/12/19 10:06) Intake & Output 06,14,22 (04/12/19 10:06) Precautions (Aru) (04/12/19 10:06) Weekly Weight WEEK (04/12/19 10:06) Rehab-Intensity Of Therapy (04/12/19 10:06) Initiate Admission Nursing Pro .admission (04/12/19 10:06) Initiate Admission Nursing Pro .admission (04/12/19 10:06) Admission Arrival Bed Request (04/12/19 10:40) Code/Resuscitation (04/12/19 12:53) Cho 60g/M 3snack (16-2000 Shankra) (04/12/19 Dinner) Albuterol Pre-Mix Nebs (Rt) (Proventil (04/12/19 13:00) Aspirin Enteric Coated Tablet (Ecotrin T (04/13/19 09:00) Cholecalciferol Capsule/Tablet (Vitamin (04/13/19 09:00) Furosemide Tablet (Lasix Tablet) (04/13/19 09:00) Hydrocodone/Apap 10/325 Tablet (Lortab 1 (04/12/19 13:00) Losartan Tablet (Cozaar Tablet) (04/13/19 09:00) Methylnaltrexone Injection (Relistor Inj (04/13/19 09:24) [place] 3 Capsule (Fish Oil Capsule) (04/12/19 17:00) Pantoprazole Tablet (Protonix Tablet) (04/13/19 09:00) Patient May Use Own Meds, All (Patient M (04/12/19 13:00) Potassium Chloride (Tablet) (K Dur Table (04/13/19 09:25) Ranolazine Er Tablet (Ranexa Er Tablet) (04/12/19 21:00) Rosuvastatin Tablet (Crestor Tablet) (04/12/19 21:00) Sodium Chloride Flush (Catheter Flush Sy (04/12/19 13:00) Spironolactone Tablet (Aldactone Tablet) (04/13/19 09:00) Amlodipine Tablet (Norvasc Tablet) (04/13/19 09:00) Diphenhydramine Tablet (Benadryl Tablet) (04/12/19 21:00) Insulin Aspart (Novolog) (Novolog (Charg (04/12/19 17:00) Insulin Determir (Per Unit) (Levemir (Pe (04/12/19 21:00) Prednisone Tablet (Deltasone Tablet) (04/13/19 07:00) Cbc With Automated Diff (04/13/19 06:00) Comprehensive Metabolic Panel (04/13/19 06:00) Accucheck Achs ACHS (04/12/19 12:53) Insulin Aspart (Novolog) (Novolog (Charg (04/12/19 16:00) Acetaminophen Tablet (Tylenol Tablet) (04/12/19 13:00) Alprazolam Tablet (Xanax Tablet) (04/12/19 13:00) Calcium Carbonate Chew Tablet (Antacid C (04/12/19 13:00) Diphenhydramine Tablet (Benadryl Tablet) (04/12/19 13:00) Docusate Sodium Capsule (Colace Capsule) (04/12/19 13:00) Melatonin Tablet (Melatonin Tablet) (04/12/19 13:00) Ondansetron Oral Dissolve Tab (Zofran (04/12/19 13:00) Senna S Tablet (Senokot S Tablet) (04/12/19 21:00) Iron Test (Fe) (04/13/19 06:00) Patient Visit (04/12/19 ) Pt Eval Moderate Complexity (04/12/19 ) Functional Activities, Ea 15 (04/12/19 ) Wheelchair Mgmt/Propulsn 15min (04/12/19 ) Albuterol/Ipra Inhalation Soln (Duoneb I (04/13/19 21:00) Svn Small Volume Nebulizer (04/13/19 09:40) Patient Visit (04/13/19 ) Speech Sound Lang Comp (04/13/19 ) Patient Visit (04/13/19 ) Gait Training, Ea 15 Min (04/13/19 ) Exercise Therap, Ea 15 Min (04/13/19 ) Functional Activities, Ea 15 (04/13/19 ) Therapeutic, Group (04/13/19 ) Patient Visit (04/14/19 ) Functional Activities, Ea 15 (04/14/19 ) Exercise Therap, Ea 15 Min (04/14/19 ) Wheelchair Mgmt/Propulsn 15min (04/14/19 ) Functional Activities, Ea 15 (04/14/19 ) Rehab Nursing Orders: Ongoing Assess. of Cognitive Status, Ongoing Assess. of Function Status, Bladder Management, Bladder Scan, Bladder Training, Bowel Management, Bowel Training, Disease Management & Educaiton, DVT Prophylaxis, Fall Prevention, Fluid/Electrolyte/Nutrition Mgmt, Infection Prevention, Medication Management & Education, Management of Risks & Complications, Nutrition Management, Pain Management, Patient/Family Support, Safety Management Intensity of Therapy to be met Patient to be seen: Min.3h per day/5 of 7d PT IPOC Problem List: Activity Tolerance, Functional Strength, Safety, Balance, Gait, Transfer, Bed Mobility Treatment Plan: Continue Plan of Care Bed Mobility, Concurrent Therapy, Education, Functional Activity Arabella, Functional Strength, Group Therapy, Gait, Safety, Therapeutic Exercise, Transfers Treatment Duration: Apr 13, 2019 Frequency: At least 5 of 7 days/Wk (IRF) Estimated Hrs Per Day: 1.5 hours per day OT IPOC Problems: Decreased Activ Tolerance, Decreased UE Strength, Dependent Transfers, Impaired Funct Balance, Impaired I ADL's, Impaired Self-Care Skills OT Treatment, Training and Edu: Yes Plan of Care: ADL Retraining, Caregiver Training, Concurrent Therapy, Functional Mobility, Group Exercise/Act as Ind, UE Funct Exercise/Act Treatment Duration: Apr 26, 2019 Frequency: At least 5 of 7 days/Wk (IRF) Estimated Hrs Per Day: 1.[address] IPOC Speech Therapy Treatment Plan: Discontinue ST Treatment Duration: Apr 13, 2019 Frequency: 1 time per week Estimated Hrs Per Day: .25 hour per day Car Carder/Case Mgmt Car Carder/Case Managemen: Discharge Planning Dietitian/Portfolio Specialist Dietitian/Portfolio Specialist to monitor nutritional status and make changes and/or recommendations as needed and work with speech pathology on dietary upgrades as the occur. Physician IPOC Medical Issues being managed closely and that require the 24 hour availability of a physician: Severe weakness with recent infection with wheezing will require close monitoring Medical Issues: Bowel/Bladder Function, DVT Prophylaxis, Falls Precautions, Fluid/Electrolyte/Nutrition Balance, Pain Management Brief Synthesis of Preadmission Screen, Post-Admission Evaluation, and Therapy Evaluations: PT will help ability to ambulate and transfers in wheelchair OT will focus on independent ADL's Medical Prognosis: Good Anticipated Length of Stay: 7 days CHELY ESPARZA DO Apr 13, 2019 16:55 POS
[2019-04-13 18:20] VITALS: BP 125/68
--- NOTE | 2019-04-13 19:32 | Consultation ---
History of Present Illness History of Present Illness Patient Consulted On(ange/time) 04/13/19 19:32 Date Seen by Provider: Apr 13, 2019 Time Seen by Provider: 19:45 Reason for Visit: BACK PAIN, SPINAL STENOSIS History of Present Illness BENIGNO IS A PATIENT IN MY MEDICAL PRACTICE WHO IS QUITE WELL KNOWN TO ME. SHE PRESENTED TO THE HOSPITAL WITH GENERALIZED WEAKNESS, FALLING EPISODE AT HOME AND WAS FOUND TO HAVE A URINARY TRACT INFECTION WITH SEVERE LOWER EXTREMITY WEAKNESS AND GENERALIZED DEBILITY. SHE WAS ADMITTED TO INPATIENT STATUS, STARTED ON IV ANTIBIOTICS, AND THEN INPATIENT REHAB ADMISSION WAS SOUGHT FOR THE PATIENT FOR CONTINUED STRENGTHENING PRIOR TO HER PLANNED DISCHARGE TO HOME. Allergies and Home Medications Allergies Coded Allergies: Sulfa (Sulfonamide Antibiotics) (Unverified Allergy, Unknown, HIVES, SOB, 10/27/06) morphine (Unverified Allergy, Unknown, UNKNOWN, 10/27/06) propoxyphene (Unverified Allergy, Unknown, UNKNOWN, 10/27/06) erythromycin base (Unverified Adverse Reaction, Unknown, SICK TO HER STOMACH, CRAMPS, VOMITING, 10/27/06) Home Medications Albuterol Sulfate 2.5 Mg/3 Ml Vial.neb, 2.5 MG IH Q6H PRN for WHEEZING, (Reported) Amlodipine Besylate 5 Mg Tablet, 5 MG PO DAILY, (Reported) Aspirin 81 Mg Tablet.dr, 81 MG PO DAILY, (Reported) Atenolol 25 Mg Tablet, 25 MG PO HS, (Reported) Cholecalciferol (Vitamin D3) 1,000 Unit Tablet, 2,000 UNIT PO DAILY, (Reported) take 2 (1000mg) tabs Diphenhydramine HCl 25 Mg Capsule, 50 MG PO HS, (Reported) Furosemide 20 Mg Tablet, 20 MG PO DAILY, (Reported) Hydrochlorothiazide 25 Mg Tablet, 25 MG PO HS, (Reported) Hydrocodone/Acetaminophen 1 Each Tablet, 1 EACH PO Q6H PRN for PAIN-MODERATE, (R eported) Insulin Aspart 100 Unit/1 Ml Susp, 20 UNIT SQ DAILY 0700, (Reported) TAKES LEVEMIR AND NOVOLOG TOGETHER IN THE MORNING Insulin Aspart 100 Unit/1 Ml Susp, UNIT SQ DAILY 1700 PRN for HYPOGLYCEMIA, (Reported) TAKES BLOOD SUGAR AND DEPENDING ON THAT READING ALONG WITH WHAT HER MEAL IS SHE USES A SLIDING SCALE Insulin Detemir 100 Unit/1 Ml Insuln.pen, 10 UNIT SQ 0700, (Reported) TAKES LEVEMIR AND NOVOLOG TOGETHER IN THE MORNING Insulin Detemir 100 Unit/1 Ml Insuln.pen, 40 UNIT SQ HS, (Reported) Losartan Potassium 25 Mg Tablet, 25 MG PO DAILY, (Reported) Davenport-3/Dha/Epa/Fish Oil 1 Each Capsule, 1 EACH PO TID, (Reported) Pantoprazole Sodium 40 Mg Tablet.dr, 40 MG PO DAILY, (Reported) Ranolazine 1,000 Mg Tab.er.12h, 1,000 MG PO BID, (Reported) Rosuvastatin Calcium 10 Mg Tablet, 10 MG PO HS, (Reported) Spironolactone 25 Mg Tablet, 25 MG PO DAILY, (Reported) Patient Home Medication List Home Medication List Reviewed: Yes Past Yiqtcox-Hmtdss-Udmbwy Hx Past Med/Social Hx: Reviewed Nursing Past Med/Soc Hx, Reviewed and Corrections made Patient Social History Alcohol Use: Denies Use Recreational Drug Use: No Smoking Status: Never a Smoker Type Used: Cigarettes Former Smoker, Quit: Mar 27, 1988 2nd Hand Smoke Exposure: No Recent Foreign Travel: No Contact w/Someone Who Travel: No Recent Infectious Disease Expo: No Recent Hopitalizations: Yes Physical Abuse: No Sexual Abuse: No Mistreated: No Fear: No Immunizations Up To Date PED Vaccines UTD: Yes Date of Pneumonia Vaccine: November 01, 2008 Date of Influenza Vaccine: Apr 12, 2019 Seasonal Allergies Seasonal Allergies: No Past Medical History Surgeries: Yes Adenoidectomy, Appendectomy, Cardiac, Eye Surgery, Gallbladder, Hysterectomy, Oophorectomy, Orthopedic, Tonsillectomy Respiratory: Yes COPD Cardiac: Yes Coronary Artery Disease, High Cholesterol, Hypertension Neurological: Yes (PERIPHERAL NEUROPATHY) Neuropathy Reproductive Disorders: Yes (ENDOMETRIAL CANCER--S/P HYST/BSO) PAD HAND History: Hysterectomy, 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 No Pertinent Family Hx Review of Systems-General Constitutional: No chills, No fever, No malaise; weakness EENTM: No hearing loss, No vision loss, No hoarseness, No throat pain Respiratory: No cough, No dyspnea on exertion, No short of breath Cardiovascular: No chest pain, No edema, No palpitations Gastrointestinal: No abdominal pain; constipation (CHRONIC); No diarrhea, No nausea, No vomiting Genitourinary: no symptoms reported Musculoskeletal: back pain, muscle weakness Skin: No rash Psychiatric/Neurological: Denies Anxiety; Depressed Physical Exam-General Problems Physical Exam Vital Signs Vital Signs - First Documented 04/12/19 04/12/19 04/13/19 11:39 11:42 05:33 Temp 36.6 Pulse 55 Resp 22 B/P (MAP) 125/66 Pulse Ox 93 O2 Delivery Room Air O2 Flow Rate 3.00 Capillary Refill : General Appearance: WD/WN, no apparent distress Eyes: Bilateral Eye Normal Inspection, Bilateral Eye PERRL, Bilateral Eye EOMI HEENT: PERRL/EOMI, pharynx normal Neck: non-tender, full range of motion, supple, normal inspection Respiratory: chest non-tender, lungs clear, normal breath sounds Cardiovascular: regular rate, rhythm Gastrointestinal: normal bowel sounds, non tender, soft, no organomegaly Back: other (KYPHOSIS) Extremities: normal range of motion, non-tender, normal inspection, no pedal edema, no calf tenderness, normal capillary refill Neurologic/Psychiatric: sheepskin pickler II-XII nml as tested, alert, normal mood/affect, oriented x 3 Skin: normal color, warm/dry Lymphatic: no adenopathy Assessment/Plan Assessment/Plan Admission Diagnosis/Plan SPINAL STENOSIS BACK PAIN HYPERTENSION WITH KNOWN CAD HYPERLIPIDEMIA DIABETES MELLITUS PERIPHERAL NEUROPATHY CHRONIC EDEMA SPINAL STENOSIS WITH CHRONIC BACK PAIN - PLANNING ON THERAPY FOR STRENGTHENING PRIOR TO DISCHARGE TO HOME - PT IS NOT A GOOD SURGICAL CANDIDATE PER NEUROSURGEON AND THEY ARE TRYING TO AVOID ANY OPERATIVE INTERVENTION BENIGNO WOULD NEED AN EXTENSIVE PROCEDURE SHOULD SHE GO TO THE [facility].R. HYPERTENSION WITH CAD - RESUMED HOME REGIMEN, MONITOR PRESSURE CLOSELY AND WILL ADJUST MEDICATIONS SHOULD THAT BE NEEDED. - CONTINUE RANEXA HYPERLIPIDEMIA - ON CRESTOR OUTPATIENT, CONTINUE WITH STATIN THERAPY DIABETES MELLITUS - ON INSULIN OUTPATIENT - ADJUST MEDICATION TO PREVENT LOW BLOOD GLUCOSE READINGS. SHE HAS REQUIRED LESS MEDICATION SINCE SHE HAS BEEN IN THE HOSPITAL. PERIPHERAL NEUROPATHY - MULTIFACTORIAL - DUE TO DM AND SPINAL STENOSIS - SUPPORTIVE CARE CHRONIC EDEMA - PRN LASIX Admission Status: Inpatient Order (span 2 midnights) Reason for Inpatient Admission: INPT REHAB ADMISSION KARY MEHTA MD Apr 13, 2019 19:32 POS
[2019-04-13] MEDS: diphenhydrAMINE 25 MG TAB (BENADRYL) PO SCH (21:10)
[2019-04-13] MEDS: RT-ALBUTEROL/IPRATROPIUM 3 ML (DUONEB) VIAL INH SCH (21:46)
[2019-04-14] MEDS: predniSONE 5 MG TAB PO SCH (06:13)
[2019-04-14] MEDS: OMEGA 3 (FISH OIL) 1000 MG CAP PO SCH ×3 (06:13→16:58)
[2019-04-14 06:20] VITALS: BP 111/61
[2019-04-14] MEDS: inSUlin ASPART (NovoLOG) 1 UNIT/0.01 ML (CHARGE PER UNIT) SC SCH ×5 (06:36→20:25)
--- NOTE | 2019-04-14 09:35 | Occupational Ther Daily Note ---
OT Current Status-Daily Note Subjective Pt seen reclined in bed, states no pain, pt slept well throughout the night. Pt agreeable to OT tx session. Pt states she received her inhaler and no angina post-OT session yesterday. Mental Status/Objective Patient Orientation: Normal For Age ADL-Treatment Therapy Code Descriptions/Definitions Functional [place] Measure: 0=Not Assessed/NA 4=Minimal Assistance 1=Total Assistance 5=Supervision or Setup 2=Maximal Assistance 6=Modified [place] 3=Moderate Assistance 7=Complete IndependenceSCALE: Activities may be completed with or without assistive devices. 7-Lxkwcoyyzr-enheees completes the activity by him/herself with no assistance from a helper. 5-Set-up or Clean-up Assistance-helper sets up or cleans up; patient completes activity. Marshall assists only prior to or following the activity. 4-Supervision or Touching Assistance-helper provides verbal cues and/or touching/steadying and/or contact guard assistance as patient completes activity. Assistance may be provided throughout the activity or intermittently. 3-Partial/Moderate Assistance-helper does LESS THAN HALF the effort. Marshall lifts, holds or supports trunk or limbs, but provides less than half the effort. 2-Substantial/Maximal Assistance-helper does MORE THAN HALF the effort. Marshall lifts or holds trunk or limbs and provides more than half the effort. 0-Uqpnymvfb-fnfftx does ALL the effort. Patient does none of the effort to complete the activity. Or, the assistance of 2 or more helpers is required for the patient to complete the activity. If activity was not attempted, code reason: 7-Patient Refused. 9-Not Applicable-not attempted and the patient did not perform the activity before the current illness, exacerbation or injury. 10-Not Attempted due to Environmental Limitations-(lack of equipment, weather restraints, etc.). 88-Not Attempted due to Medical Conditions or Safety Concerns. Eating (QC): 6 Oral Hygiene (QC): 6 (Pt brushes teeth and dentures in w/c ) Shower/Bathe Self (QC): 3 (Pt requires assist with bottom and back cleaning. Pt completes sponge bath in chair, SBA in stance for jose alejandro cleaning) Upper Body Dressing (QC): 5 (S/U) Lower Body Dressing (QC): 4 (s/u and CGA in stance for pull up) Other Treatment Pt bed mob with increased time, SUP. Pt completes ADLs in room. Pt pushes self in w/c to therapy gym, transfers to EOM with FWW. Pt completes 3 sets of 10 reps of 3 exercises with weighted bar with decreasing weight each set (3#, 2#, weight of bar). Pt completes shoulder flexions, bicep curls, and trunk rotations with good dynamic sitting balance and fair endurance. Pt requires rest in between each exercise. Pt sit to stand with CGA, stands for ~30 seconds to focus on standing tolerance. Pt requires rest break, completes reaching exercise with BUE in planes outside [place]. Pt completes standing activity, able to stand ~25 seconds prior to rest. Pt sit to stand and transfers to w/c with CGA, pushes self in w/c back to room. Pt left in w/c end of session, call light in reach, all needs met, PT present. Education OT Patient Education: Correct positioning, Energy conservation, Exercise program, Modified ADL techniques, Purpose of tx/functional activities, Safety issues, Transfer techniques Teaching Recipient: Patient Teaching Methods: Demonstration, Discussion Response to Teaching: Verbalize Understanding, Return Demonstration OT Short Term Goals Short Term Goals Upper Body Dressing(FIM): 4 (met) Lower Body Dressing(FIM): 4 (met) Transfers (B,C,W/C) (FIM): 5 Additional Short Term Goals: 1-Demonstrate ADL Tasks, 2-Verbalize Understanding, 3-ImproveStrength/Arabella 1=Demonstrate adherence to instructed precautions during ADL tasks. 2=Patient will verbalize/demonstrate understanding of assistive devices/modifications for ADL. 3=Patient will improve strength/tolerance for activity to enable patient to perform ADL's. OT Halfway Goals Orderlies Teacher Goals Eating (QC): 6 (met) Oral Hygiene (QC): 6 (met) Shower/Bathe Self (QC): 4 Upper Body Dressing (QC): 6 Lower Body Dressing (QC): 6 On/Off Footwear (QC): 6 (met) Toileting Hygiene (QC): 6 Toilet/Commode Transfer (QC): 6 Additional Goals: 1-Demonstrate ADL Tasks, 2-Verbalize Understanding, 3-ImproveStrength/Arabella 1=Demonstrate adherence to instructed precautions during ADL tasks. 2=Patient will verbalize/demonstrate understanding of assistive devices/modifications for ADL. 3=Patient will improve strength/tolerance for activity to enable patient to perform ADL's. OT Education/Plan Problem List/Assessment Assessment: Decreased Activ Tolerance, Decreased UE Strength, Impaired Funct Balance, Impaired I ADL's, Impaired Self-Care Skills Discharge Recommendations Plan/Recommendations: Continue POC Therapy Discharge Recommendati: Intermittent Supervision Equpiment Recommendations-D/C: None Treatment Plan/Plan of Care Treatment,Training & Education: Yes Patient would benefit from OT for education, treatment and training to promote independence in ADL's, mobility, safety and/or upper extremity function for ADL's. Plan of Care: ADL Retraining, Caregiver Training, Concurrent Therapy, Functional Mobility, Group Exercise/Act as Ind, UE Funct Exercise/Act Treatment Duration: Apr 26, 2019 Frequency: At least 5 of 7 days/Wk (IRF) Estimated Hrs Per Day: 1.5 hours per day Agreement: Yes Rehab Potential: Fair Time/GCodes Start Time: 08:00 Stop Time: 09:30 Total Time Billed (hr/min): 90 Billed Treatment Time 1, ADLx4 (60), EX x2 (30)= 90 PREMA RODRIGUEZ OTR Apr 14, 2019 09:35 POS
[2019-04-14] MEDS: RANOLAZINE ER 500 MG TAB (RANEXA) PO SCH ×2 (09:54→20:58)
[2019-04-14] MEDS: VITAMIN D3 1,000 UNITS (CHOLECALCIFEROL) TABLET PO SCH (09:54)
[2019-04-14] MEDS: PANTOPRAZOLE 40 MG (PROTONIX) TAB PO SCH (09:54)
[2019-04-14] MEDS: ASPIRIN E.C. 81 MG (ECOTRIN) TAB PO SCH (09:54)
[2019-04-14] MEDS: LOSARTAN 25 MG (COZAAR) TAB PO SCH (09:54)
[2019-04-14] MEDS: amLODIPine 5 MG (NORVASC) TAB PO SCH (09:55)
[2019-04-14] MEDS: SPIRONOLACTONE 25 MG (ALDACTONE) TAB PO SCH (09:55)
[2019-04-14] MEDS: SENNA W/DOCUSATE (SENOKOT S) TABLET PO SCH ×3 (09:55→21:00)
[2019-04-14] MEDS: FUROSEMIDE 20 MG (LASIX) TAB PO SCH (09:55)
--- NOTE | 2019-04-14 10:10 | Progress Note ---
[facility] 04/14/19 1010: Progress Note CC: Leg weakness * Pt reports doing good yesterday * She is able to sit on the edge of the bed and transfer to the wheelchair then wheel herself to the bathroom and transfer to the toilet * She is able to return from the bathroom unassisted and get up on the bed, but she does need help moving her legs into the bed * She had a BM last night and states that she normally has a BM every other day since she was little * She has been off the O2 since coming to rehab and had no trouble breathing since then, but has been receiving breathing treatments BID * She reports having two very short episodes of chest angina yesterday when she was bathing herself * She reports having some swelling in her ankles yesterday after sitting in the chair for a while * She appears to be doing very well in rehab and is motivated to continue working hard JACQUELINE ESPARZA DO 04/15/19 0827: Supervisory-Addendum Brief Verification & Attestation Participated in pt care: history, MDM, physical Personally performed: exam, history, MDM, supervision of care Care discussed with: Medical Student Procedures: n/a Results interpretation: Verified all documentation Verification and Attestation of Medical Student E/M Service A medical student performed and documented this service in my presence. I reviewed and verified all information documented by the medical student and made modifications to such information, when appropriate. I personally performed the physical exam and medical decision making. Jacqueline Esparza, Apr 15, 2019,08:27 [facility] Apr 14, 2019 10:10 JACQUELINE CHRIS DO Apr 15, 2019 08:27 POS
[2019-04-14] MEDS: HYDROcodone/APAP 10 MG/325 MG (LORTAB) TAB PO PRN ×2 (10:17→21:05)
[2019-04-14] MEDS: RT-ALBUTEROL/IPRATROPIUM 3 ML (DUONEB) VIAL INH SCH ×2 (10:29→18:18)
--- NOTE | 2019-04-14 12:05 | Physical Therapy Daily Note ---
PT Daily Note-Current Subjective Pt sitting in W/C in room just finishing with OT upon arrival. Pt agrees to PT. Pain Numeric Pain Scale: 9 Location Body Site: Back Pain Description: Throbbing, Tightness Mental Status Patient Orientation: Person, Place, Time, Situation Transfers SCALE: Activities may be completed with or without assistive devices. 9-Axedeftuva-gseykcn completes the activity by him/herself with no assistance from a helper. 5-Set-up or Clean-up Assistance-helper sets up or cleans up; patient completes activity. [place] assists only prior to or following the activity. 4-Supervision or Touching Assistance-helper provides verbal cues and/or touching/steadying and/or contact guard assistance as patient completes activity. Assistance may be provided throughout the activity or intermittently. 3-Partial/Moderate Assistance-helper does LESS THAN HALF the effort. [place] lifts, holds or supports trunk or limbs, but provides less than half the effort. 2-Substantial/Maximal Assistance-helper does MORE THAN HALF the effort. [place] lifts or holds trunk or limbs and provides more than half the effort. 7-Npwuzftif-lszaye does ALL the effort. Patient does none of the effort to co mplete the activity. Or, the assistance of 2 or more helpers is required for the patient to complete the activity. If activity was not attempted, code reason: 7-Patient Refused. 9-Not Applicable-not attempted and the patient did not perform the activity before the current illness, exacerbation or injury. 10-Not Attempted due to Environmental Limitations-(lack of equipment, weather restraints, etc.). 88-Not Attempted due to Medical Conditions or Safety Concerns. Sit to Lying (QC): 4 Sit to Stand (QC): 4 Chair/Wjm-mw-Ssklg Xfer(QC): 4 Bed to/from Chair: 4 Weight Bearing Right Lower Extremity: Right Full Weight Bearing Left Lower Extremity: Left Full Weight Bearing Wheelchair Training Does the Pt Use a Wheelchair?: Yes Wheelchair Distance: 3=150 ft Distance: 150' x2 Wheel 50 ft with 2 turns (QC): 5 Wheel 150 ft (QC): 5 Type of Wheelchair: Manual Exercises Seated Therapy Exercises: Ankle pumps, Long arc quads, Hip flexion, Kicking activity, Hamstring Curls Seated Reps: 15 NuStep Minutes: 16 NuStep Workload: 4 Treatments Pt has questions regarding medical history and progress she might expect. Nurse gives morning meds and RT a Breathing Rx as pt begins PT. Pt completes Seated Ex. Pt propels W/C in hallway and to Therapy Gym. Pt uses NuStep for 16m at WL 4. After short RB, Pt propels W/C in hallway. Pt returns to room to use restroom and return to bed to rest at end of Rx. Pt has all needs met, call light in hand. Assessment Current Status: Fair Progress Pt is anxious and needs redirection at times to stay on task. Pt likes to visit instead of completing task at hand. Pt moves slowly and takes extended time to complete tasks. PT Short Term Goals Short Term Goals Time Frame: Apr 19, 2019 Gait Distance Comment: 10' Gait Assistive Device: FWW (CGA) Wheelchair Distance: 30' PT Oral Surgery Technician Goals Snf Goals PT Oral Surgery Technician Goals Time Frame: May 03, 2019 Sit to Lying (QC): 4 (SBA) Lying-Sitting on Side/Bed(QC): 4 (SBA) Sit to Stand (QC): 4 (SBA) Roll Left to Right (QC): 6 Chair/Oif-im-Nlmib Xfer(QC): 4 (SBA) Car Transfer (QC): 4 (SBA) Does the Patient Walk: Yes Distance: 50' Walk 10 feet (QC): 4 (SBA) Walk 10ft-Uneven Surface(QC): 4 (CGA) Walk 50ft with 2 Turns (QC): 4 (SBA) Walk 150 ft (QC): 88 Gait Assistive Device: FWW Does the Pt use WC or Scooter?: Yes Distance: 300' Wheel 50 feet with 2 turns (QC: 6 # of Steps: 1 1 Step (curb) (QC): 3 PT Plan Problem List Problem List: Activity Tolerance, Functional Strength, Safety, Balance, Gait, Transfer Treatment/Plan Treatment Plan: Continue Plan of Care Treatment Plan: Bed Mobility, Concurrent Therapy, Education, Functional Activity Arabella, Functional Strength, Group Therapy, Gait, Safety, Therapeutic Exercise, Transfers Frequency: At least 5 of 7 days/Wk (IRF) Estimated Hrs Per Day: 1.5 hours per day Patient and/or Family Agrees t: Yes Safety Risks/Education Patient Education: Transfer Techniques, Correct Positioning, W/C Management, Disease Process, Safety Issues Teaching Recipient: Patient Teaching Methods: Discussion Response to Teaching: Verbalize Understanding Time/GCodes Time In: 930 Time Out: 1100 Total Billed Treatment Time: 90 Total Billed Treatment 1, FA x3 (40m), EX x2 (30m) & WCH (20m) GEOVANNA MENDOZA PLAYGROUND DIRECTOR Apr 14, 2019 12:05 POS
--- NOTE | 2019-04-14 13:37 | PM&R Progress Note ---
Subjective HPI/CC On Admission Date Seen by Provider: Apr 14, 2019 Time Seen by Provider: 09:00 Chief complaint: Fall with subsequent debility. HPI: This is a 78[address] Clay who has a PMH of CAD, DM, HTN, and chronic back pain who presented to the ER due to falls and weakness found to have a UTI, and had suffered a fall at home which resulted in severe back pain, unable to be managed at home after she had laid on the bathroom floor for 1.5 hours before her found her. She was accessed in the ER, admitted and placed on broad spectrum antibiotics of Rocephin, supportive care and consulted PT and OT who evaluated her to be in need of strengthening in order to ultimately get back to baseline of prior level of functioning and return home. Her prior level of functioning includes ambulation with a walker and she lives at home with her of 58 years. 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 At this current time we did talk about her Hydrocodone that she takes on a regular basis, and I have reviewed urine cultures and blood cultures, so specific bacteria that will need to have continued antibiotic treatment for so those will be discontinued in addition IV fluids will be discontinued since she is consuming adequate oral intake. Subjective/Events-last exam I saw the Pt in the gym today. Albuterol and nebulizer treatments are helping with the wheezing. Denies any significant pain more than the usual. Denies any other significant problems. Overall improving and she feels like she is doing well. Conferred with RN Reviewed therapy notes Checked meds and labs Review of Systems General: Fatigue Pulmonary: Dyspnea Musculoskeletal: leg pain Objective Exam Vital Signs Vital Signs Date Time Temp Pulse Resp B/P (MAP) Pulse Ox O2 Delivery O2 Flow Rate FiO2 04/15/19 06:23 91 Room Air 04/15/19 05:10 37.0 54 16 118/67 (84) 04/13/19 05:33 3.00 Capillary Refill : General Appearance: No Apparent Distress, WD/WN, Chronically ill, Obese HEENT: PERRL/EOMI, Normal ENT Inspection, Pharynx Normal, Moist Mucous Membranes Neck: Full Range of Motion, Normal Inspection, Non Tender, Supple Respiratory: Chest Non Tender, Normal Breath Sounds, No Accessory Muscle Use, No Respiratory Distress, Wheezing (upper airway) Cardiovascular: Regular Rate, Rhythm, No Edema, No Gallop, No JVD, No Murmur Gastrointestinal: Normal Bowel Sounds, No Organomegaly, No Pulsatile Mass, Non Tender, Soft Back: Normal Inspection, No CVA Tenderness, No Vertebral Tenderness Extremity: Normal Capillary Refill, Normal Inspection, Normal Range of Motion, Non Tender, No Calf Tenderness, No Pedal Edema Neurologic/Psychiatric: Alert, Oriented x3, No Motor/Sensory Deficits (generalized weakness lower extremities), Normal Mood/Affect Skin: Normal Color, Warm/Dry Lymphatic: No Adenopathy Results/Procedures Lab Patient resulted labs reviewed. FIM Transfers Therapy Code Descriptions/Definitions Functional [place] Measure: 0=Not Assessed/NA 4=Minimal Assistance 1=Total Assistance 5=Supervision or Setup 2=Maximal Assistance 6=Modified [place] 3=Moderate Assistance 7=Complete IndependenceSCALE: Activities may be completed with or without assistive devices. 8-Jomrsgblez-wgumsyy completes the activity by him/herself with no assistance from a helper. 5-Set-up or Clean-up Assistance-helper sets up or cleans up; patient completes activity. [place] assists only prior to or following the activity. 4-Supervision or Touching Assistance-helper provides verbal cues and/or touching/steadying and/or contact guard assistance as patient completes activity. Assistance may be provided throughout the activity or intermittently. 3-Partial/Moderate Assistance-helper does LESS THAN HALF the effort. [place] lifts, holds or supports trunk or limbs, but provides less than half the effort. 2-Substantial/Maximal Assistance-helper does MORE THAN HALF the effort. [place] lifts or holds trunk or limbs and provides more than half the effort. 3-Svfljdpvy-nkazez does ALL the effort. Patient does none of the effort to c omplete the activity. Or, the assistance of 2 or more helpers is required for the patient to complete the activity. If activity was not attempted, code reason: 7-Patient Refused. 9-Not Applicable-not attempted and the patient did not perform the activity before the current illness, exacerbation or injury. 10-Not Attempted due to Environmental Limitations-(lack of equipment, weather restraints, etc.). 88-Not Attempted due to Medical Conditions or Safety Concerns. Transfers (B, C, W/C) (FIM): 3 Roll Left to Right (QC): 3 Sit to Lying (QC): 3 (George to get L LE into bed.) Sit to Stand (QC): 3 Chair/Ddj-ed-Vjstf Xfer(QC): 3 (modA. Pt is inconsistant in assist needs from modA to CGA) Car Transfer (QC): 3 (George only for L LE into car.) Gait Training Does the Patient Walk?: Yes Gait (FIM): 3 Distance (FIM): 1=up to 49 ft Distance: 5' Walk 10 feet (QC): 88 Walk 50 ft with 2 Turns(QC): 88 Walk 150 ft (QC): 88 Walking 10ft/uneven surface-QC: 88 Gait Assistive Device: FWW Wheelchair Training Does the Pt Use a Wheelchair?: Yes Wheelchair Distance: 3=150 ft Distance: 30' Wheel 50 ft with 2 turns (QC): 6 Wheel 150 ft (QC): 6 Type of Wheelchair: Manual Stair Training 1 Step (curb) (QC): 88 4 Steps (QC): 88 12 Steps (QC): 88 Balance Picking up an Object (QC): 88 ADL-Treatment Eating (QC): 6 Oral Hygiene (QC): 6 (Pt brushes teeth and dentures in w/c ) Shower/Bathe Self (QC): 3 (Pt requires assist with bottom and back cleaning. Pt completes sponge bath in chair, SBA in stance for jose alejandro cleaning) Upper Body Dressing (QC): 5 (S/U) Lower Body Dressing (QC): 4 (s/u and CGA in stance for pull up) On/Off Footwear (QC): 4 (SBA due to decreased balance. Pt brings foot across lap, attempts multiple times prior to mastery.) Toileting Hygiene (QC): 3 ( Pt completes jose alejandro hygiene after urination while seated. Pt decreased standing tolerance; based on clinical judgement pt would be mod-min A for BM clean up. ) Toilet Transfer (QC): 4 (CGA) Assessment/Plan Assessment and Plan Assess & Plan/Chief Complaint Assessment: Fall with debility DM HTN CAD s/p UTI Chronic back pain Wheezing Plan: DC abx Home meds Pain meds IRF protocol Nebs (1) Debility (2) Urinary tract infection Status: Acute (3) IDDM (insulin dependent diabetes mellitus) Status: Acute (4) CAD (coronary artery disease) Status: Chronic (5) Vertigo Status: Acute (6) HTN (hypertension) Status: Acute (7) Left leg weakness Status: Acute CHELY ESPARZA DO Apr 14, 2019 13:37 POS
--- NOTE | 2019-04-14 16:00 | NUR ---
This worker met with patient to complete initial assessment. Patient admitted to the ARU 04/12/19, with a diagnosis of Debility. Prior to hospitalization the patient was living with her spouse in [place], [place]. She reportedly needed some assistance with bathing, but patient was independent with all other ADLs. She was mobile with a manual wheelchair, inside and outside of the home. Patient states she has received [facility] PT, provided by Karthik Chen. Karthik provided PT, until patient was able to independently ambulate 55ft, with FWW, at patient's request. Patient continues to utilize manual wheelchair when distances exceed 55ft. Patient owns a bath chair, FWW and manual wheelchair. Patient identified her spouse, Tonie as her primary contact. Tonie can be reached at . Patient identified her PCP as Dr. Shanthi Clay. Patient confirmed her primary insurance provider as [facility], with supplemental coverage provided by [facility]. Patient identifies [facility] as her preferred pharmacy. The purpose of weekly Care Team Conference was discussed, and patient displayed understanding with no concerns.
[2019-04-14 18:42] VITALS: BP 124/64
[2019-04-14] MEDS: ROSUVASTATIN 10 MG (CRESTOR) TABLET PO SCH (20:59)
[2019-04-14] MEDS: diphenhydrAMINE 25 MG TAB (BENADRYL) PO SCH (20:59)
[2019-04-15 05:10] VITALS: BP 118/67
[2019-04-15] MEDS: inSUlin ASPART (NovoLOG) 1 UNIT/0.01 ML (CHARGE PER UNIT) SC SCH ×5 (05:13→20:39)
[2019-04-15] MEDS: predniSONE 5 MG TAB PO SCH (06:09)
[2019-04-15] MEDS: OMEGA 3 (FISH OIL) 1000 MG CAP PO SCH ×3 (06:09→17:22)
[2019-04-15] MEDS: RT-ALBUTEROL/IPRATROPIUM 3 ML (DUONEB) VIAL INH SCH ×2 (06:21→22:27)
[2019-04-15] MEDS: HYDROcodone/APAP 10 MG/325 MG (LORTAB) TAB PO PRN ×2 (07:19→20:17)
[2019-04-15] MEDS: VITAMIN D3 1,000 UNITS (CHOLECALCIFEROL) TABLET PO SCH (09:12)
[2019-04-15] MEDS: SENNA W/DOCUSATE (SENOKOT S) TABLET PO SCH ×2 (09:12→20:38)
[2019-04-15] MEDS: RANOLAZINE ER 500 MG TAB (RANEXA) PO SCH ×2 (09:12→20:17)
[2019-04-15] MEDS: SPIRONOLACTONE 25 MG (ALDACTONE) TAB PO SCH (09:12)
[2019-04-15] MEDS: ASPIRIN E.C. 81 MG (ECOTRIN) TAB PO SCH (09:12)
[2019-04-15] MEDS: amLODIPine 5 MG (NORVASC) TAB PO SCH (09:12)
[2019-04-15] MEDS: FUROSEMIDE 20 MG (LASIX) TAB PO SCH (09:12)
[2019-04-15] MEDS: PANTOPRAZOLE 40 MG (PROTONIX) TAB PO SCH (09:12)
[2019-04-15] MEDS: LOSARTAN 25 MG (COZAAR) TAB PO SCH (09:12)
--- NOTE | 2019-04-15 10:12 | Physical Therapy Daily Note ---
PT Daily Note-Current Subjective pt agreeable to PT session. States she had her pain med already before therapy which really helps her to be able to do more. [place] that 6/10 LBP is really good for her. States her R knee is bone on bone and pain increases in it with movement and increases even more with WB Pain Numeric Pain Scale: 6 Comment: 6/10 LBP throughout tx session. R knee pain 7.5/10 with movement and WB Appearance Pt sitting up in recliner with LE's elevated, awake and alert. At end of tx session, pt sitting up in recliner with present, call light, phone and bedside table within reach Mental Status Patient Orientation: Person, Place, Time, Eyes Open, Situation Transfers SCALE: Activities may be completed with or without assistive devices. 8-Umtotwvgvq-zffudiw completes the activity by him/herself with no assistance from a helper. 5-Set-up or Clean-up Assistance-helper sets up or cleans up; patient completes activity. [place] assists only prior to or following the activity. 4-Supervision or Touching Assistance-helper provides verbal cues and/or t ouching/steadying and/or contact guard assistance as patient completes activity. Assistance may be provided throughout the activity or intermittently. 3-Partial/Moderate Assistance-helper does LESS THAN HALF the effort. [place] lifts, holds or supports trunk or limbs, but provides less than half the effort. 2-Substantial/Maximal Assistance-helper does MORE THAN HALF the effort. [place] lifts or holds trunk or limbs and provides more than half the effort. 5-Nejvinxyo-macptq does ALL the effort. Patient does none of the effort to complete the activity. Or, the assistance of 2 or more helpers is required for the patient to complete the activity. If activity was not attempted, code reason: 7-Patient Refused. 9-Not Applicable-not attempted and the patient did not perform the activity before the current illness, exacerbation or injury. 10-Not Attempted due to Environmental Limitations-(lack of equipment, weather restraints, etc.). 88-Not Attempted due to Medical Conditions or Safety Concerns. Transfers (B, C, W/C): 4 Sit to Stand (QC): 4 Chair/Ybt-gl-Jugje Xfer(QC): 4 SBA provided during sit to and from stand transfers and stand pivot transfers, pt requesting not to use walker and feels she does best standing from chair and reaching for the other chair. Pt with forward flexed posture while performing Weight Bearing Right Lower Extremity: Right Full Weight Bearing Left Lower Extremity: Left Full Weight Bearing Gait Training Does the Patient Walk?: Yes Distance: 4 ft fwd and bkwd, 10 ft fwd Walk 10 feet (QC): 4 Gait Persons Needed: 1 Gait Assistive Device: Parallel Bars slow, cautious, guarded, decreased step length and height, heavily relies on // bars with UE's. Wheelchair Training Does the Pt Use a Wheelchair?: Yes Wheelchair Distance: 7=569-58 ft Distance: 120 Type of Wheelchair: Manual SBA/supervision, very slow, requiring several rest breaks, skilled inst for technique and use of both UE's and LE's Exercises NuStep Minutes: 20 (c/o pain R knee "bone on bone" during flex and ext) NuStep Workload: 3 (seat 8, arms 8) Neuromuscular static stance in // bars 30", dynamic with fwd and backward walking in // bars x30", walk 10 ft in // bars x45 sec. fatigue with each activity Treatments education, safety, transfers, gait, w/c mobility, strength, activity tolerance, balance, functional mobility Assessment Current Status: Good Progress easily fatigues and with some noted anxiety about knees might possibly going out so requesting sitting rests during standing activities although no LOB or unsteadiness noted PT Short Term Goals Short Term Goals Time Frame: Apr 19, 2019 Gait Distance Comment: 10' Gait Assistive Device: FWW (CGA) Wheelchair Distance: 150' x2 PT Diver Pumper Goals Usp Goals PT Diver Pumper Goals Time Frame: May 03, 2019 Sit to Lying (QC): 4 (SBA) Lying-Sitting on Side/Bed(QC): 4 (SBA) Sit to Stand (QC): 4 (SBA) Roll Left to Right (QC): 6 Chair/Csw-ua-Uvhxy Xfer(QC): 4 (SBA) Car Transfer (QC): 4 (SBA) Does the Patient Walk: Yes Distance: 50' Walk 10 feet (QC): 4 (SBA) Walk 10ft-Uneven Surface(QC): 4 (CGA) Walk 50ft with 2 Turns (QC): 4 (SBA) Walk 150 ft (QC): 88 Gait Assistive Device: FWW Does the Pt use WC or Scooter?: Yes Distance: 300' Wheel 50 feet with 2 turns (QC: 6 # of Steps: 1 1 Step (curb) (QC): 3 PT Plan Treatment/Plan Treatment Plan: Continue Plan of Care Treatment Plan: Bed Mobility, Concurrent Therapy, Education, Functional Activity [place], Functional Strength, Group Therapy, Gait, Safety, Therapeutic Exercise, Transfers Treatment Duration: Apr 13, 2019 Frequency: At least 5 of 7 days/Wk (IRF) Estimated Hrs Per Day: 1.5 hours per day Patient and/or Family Agrees t: Yes Safety Risks/Education Patient Education: Gait Training, Transfer Techniques, W/C Management, Safety Issues Teaching Recipient: Patient Teaching Methods: Demonstration, Discussion Response to Teaching: Verbalize Understanding, Return Demonstration Time/GCodes Time In: 1000 Time Out: 1100 Total Billed Treatment Time: 60 Total Billed Treatment 1 visit, W/C x15 min, EX x20 min, FA x10 min, GT x15 min SHIMON BEAVERS COORDINATE MEASURING MACHINE OPERATOR Apr 15, 2019 10:12 POS
--- NOTE | 2019-04-15 10:30 | Occupational Ther Daily Note ---
OT Current Status-Daily Note Subjective Pt seen reclined in bed, agreeable to OT tx session, states minimal pain "all over" Mental Status/Objective Patient Orientation: Normal For Age ADL-Treatment Therapy Code Descriptions/Definitions Functional [place] Measure: 0=Not Assessed/NA 4=Minimal Assistance 1=Total Assistance 5=Supervision or Setup 2=Maximal Assistance 6=Modified [place] 3=Moderate Assistance 7=Complete IndependenceSCALE: Activities may be completed with or without assistive devices. 5-Hgelyjgwsb-ooatlem completes the activity by him/herself with no assistance f rom a helper. 5-Set-up or Clean-up Assistance-helper sets up or cleans up; patient completes activity. [place] assists only prior to or following the activity. 4-Supervision or Touching Assistance-helper provides verbal cues and/or touching/steadying and/or contact guard assistance as patient completes activity. Assistance may be provided throughout the activity or intermittently. 3-Partial/Moderate Assistance-helper does LESS THAN HALF the effort. [place] lifts, holds or supports trunk or limbs, but provides less than half the effort. 2-Substantial/Maximal Assistance-helper does MORE THAN HALF the effort. [place] lifts or holds trunk or limbs and provides more than half the effort. 0-Qmbgmauvf-vqdmzx does ALL the effort. Patient does none of the effort to complete the activity. Or, the assistance of 2 or more helpers is required for the patient to complete the activity. If activity was not attempted, code reason: 7-Patient Refused. 9-Not Applicable-not attempted and the patient did not perform the activity before the current illness, exacerbation or injury. 10-Not Attempted due to Environmental Limitations-(lack of equipment, weather restraints, etc.). 88-Not Attempted due to Medical Conditions or Safety Concerns. Eating (QC): 6 Oral Hygiene (QC): 6 (completes sitting in front of sink in w/c) Upper Body Dressing (QC): 5 (s/u) Lower Body Dressing (QC): 4 (SUP in stance during pull up) Toileting Hygiene (QC): 4 (CGA in stance due to forward body position to wipe) Toilet Transfer (QC): 5 (SUP during transfer) Other Treatment Pt completes bed mob with SUP, sit to stand CGA to w/c. Pt completes ADLs in room, skilled cues for positioning and energy conservation. Pt completes with less cues than previous date. Pt propells w/c to laundry room, sit to stand with SUP, completes routine with min cues for locking brakes prior to stance. Pt positions self in front of recliner chair, CGA during transfer. All needs met, call light in reach. Education OT Patient Education: Correct positioning, Energy conservation, Modified ADL techniques, Purpose of tx/functional activities, Safety issues, Transfer techniques Teaching Recipient: Patient Teaching Methods: Demonstration, Discussion Response to Teaching: Verbalize Understanding, Return Demonstration OT Short Term Goals Short Term Goals Upper Body Dressing(FIM): 4 (met) Lower Body Dressing(FIM): 4 (met) Transfers (B,C,W/C) (FIM): 5 Additional Short Term Goals: 1-Demonstrate ADL Tasks, 2-Verbalize Understanding, 3-ImproveStrength/[place] 1=Demonstrate adherence to instructed precautions during ADL tasks. 2=Patient will verbalize/demonstrate understanding of assistive devices/modifications for ADL. 3=Patient will improve strength/tolerance for activity to enable patient to perform ADL's. OT Correction Goals Change Control Analyst Goals Eating (QC): 6 (met) Oral Hygiene (QC): 6 (met) Shower/Bathe Self (QC): 4 Upper Body Dressing (QC): 6 Lower Body Dressing (QC): 6 On/Off Footwear (QC): 6 (met) Toileting Hygiene (QC): 6 Toilet/Commode Transfer (QC): 6 Additional Goals: 1-Demonstrate ADL Tasks, 2-Verbalize Understanding, 3-ImproveStrength/[place] 1=Demonstrate adherence to instructed precautions during ADL tasks. 2=Patient will verbalize/demonstrate understanding of assistive devices/modifications for ADL. 3=Patient will improve strength/tolerance for activity to enable patient to perform ADL's. OT Education/Plan Problem List/Assessment Assessment: Decreased Activ Tolerance, Decreased UE Strength, Impaired Funct Balance, Impaired I ADL's, Impaired Self-Care Skills Discharge Recommendations Plan/Recommendations: Continue POC Treatment Plan/Plan of Care Patient would benefit from OT for education, treatment and training to promote independence in ADL's, mobility, safety and/or upper extremity function for ADL's. Plan of Care: ADL Retraining, Caregiver Training, Concurrent Therapy, Functional Mobility, Group Exercise/Act as Ind, UE Funct Exercise/Act Treatment Duration: Apr 26, 2019 Frequency: At least 5 of 7 days/Wk (IRF) Estimated Hrs Per Day: 1.5 hours per day Agreement: Yes Rehab Potential: Fair Time/GCodes Start Time: 08:00 Stop Time: 09:00 Total Time Billed (hr/min): 60 Billed Treatment Time 1, ADL x3 (45), FA (15)= 60 PREMA RODRIGUEZ OTR Apr 15, 2019 10:30 POS
--- NOTE | 2019-04-15 10:50 | PM&R Progress Note ---
Subjective HPI/CC On Admission Date Seen by Provider: Apr 15, 2019 Time Seen by Provider: 08:45 Chief complaint: Fall with subsequent debility. HPI: This is a 78[address] Clay who has a PMH of CAD, DM, HTN, and chronic back pain who presented to the ER due to falls and weakness found to have a UTI, and had suffered a fall at home which resulted in severe back pain, unable to be managed at home after she had laid on the bathroom floor for 1.5 hours before her found her. She was accessed in the ER, admitted and placed on broad spectrum antibiotics of Rocephin, supportive care and consulted PT and OT who evaluated her to be in need of strengthening in order to ultimately get back to baseline of prior level of functioning and return home. Her prior level of functioning includes ambulation with a walker and she lives at home with her of 58 years. 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 At this current time we did talk about her Hydrocodone that she takes on a regular basis, and I have reviewed urine cultures and blood cultures, so specific bacteria that will need to have continued antibiotic treatment for so those will be discontinued in addition IV fluids will be discontinued since she is consuming adequate oral intake. Subjective/Events-last exam Patient feels more more confident every day Pain is very well controlled Having bowel movements regularly Slept pretty well last night Doesn't mind the albuterol neb treatments twice a day since the wheezing has completely resolved without regimen No falls No nausea Hemoglobin stable Conferred with RN Reviewed therapy notes Checked meds and labs Review of Systems General: Fatigue Musculoskeletal: back pain Objective Exam Vital Signs Vital Signs Date Time Temp Pulse Resp B/P (MAP) Pulse Ox O2 Delivery O2 Flow Rate FiO2 04/15/19 08:30 Room Air 04/15/19 06:23 91 04/15/19 05:10 37.0 54 16 118/67 (84) 04/13/19 05:33 3.00 Capillary Refill : Less Than 3 Seconds General Appearance: No Apparent Distress, WD/WN, Chronically ill, Obese HEENT: PERRL/EOMI, Normal ENT Inspection, Pharynx Normal, Moist Mucous Membranes Neck: Full Range of Motion, Normal Inspection, Non Tender, Supple Respiratory: Chest Non Tender, Normal Breath Sounds, No Accessory Muscle Use, No Respiratory Distress, Wheezing (upper airway) Cardiovascular: Regular Rate, Rhythm, No Edema, No Gallop, No JVD, No Murmur Gastrointestinal: Normal Bowel Sounds, No Organomegaly, No Pulsatile Mass, Non Tender, Soft Back: Normal Inspection, No CVA Tenderness, No Vertebral Tenderness Extremity: Normal Capillary Refill, Normal Inspection, Normal Range of Motion, Non Tender, No Calf Tenderness, No Pedal Edema Neurologic/Psychiatric: Alert, Oriented x3, No Motor/Sensory Deficits (generalized weakness lower extremities), Normal Mood/Affect Skin: Normal Color, Warm/Dry Lymphatic: No Adenopathy Results/Procedures Lab Patient resulted labs reviewed. FIM Transfers Therapy Code Descriptions/Definitions Functional [place] Measure: 0=Not Assessed/NA 4=Minimal Assistance 1=Total Assistance 5=Supervision or Setup 2=Maximal Assistance 6=Modified [place] 3=Moderate Assistance 7=Complete IndependenceSCALE: Activities may be completed with or without assistive devices. 7-Ymidsefrho-eujxjue completes the activity by him/herself with no assistance from a helper. 5-Set-up or Clean-up Assistance-helper sets up or cleans up; patient completes activity. [place] assists only prior to or following the activity. 4-Supervision or Touching Assistance-helper provides verbal cues and/or touching/steadying and/or contact guard assistance as patient completes activity. Assistance may be provided throughout the activity or intermittently. 3-Partial/Moderate Assistance-helper does LESS THAN HALF the effort. [place] lifts, holds or supports trunk or limbs, but provides less than half the effort. 2-Substantial/Maximal Assistance-helper does MORE THAN HALF the effort. [place] lifts or holds trunk or limbs and provides more than half the effort. 3-Hmtojvcqt-clewev does ALL the effort. Patient does none of the effort to complete the activity. Or, the assistance of 2 or more helpers is required for the patient to complete the activity. If activity was not attempted, code reason: 7-Patient Refused. 9-Not Applicable-not attempted and the patient did not perform the activity before the current illness, exacerbation or injury. 10-Not Attempted due to Environmental Limitations-(lack of equipment, weather restraints, etc.). 88-Not Attempted due to Medical Conditions or Safety Concerns. Transfers (B, C, W/C) (FIM): 3 Roll Left to Right (QC): 3 Sit to Lying (QC): 4 Sit to Stand (QC): 4 Chair/Jsm-al-Hrcwt Xfer(QC): 4 Bed to/from Chair: 4 Car Transfer (QC): 3 ([place] only for L LE into car.) Gait Training Does the Patient Walk?: Yes Gait (FIM): 3 Distance (FIM): 1=up to 49 ft Distance: 5' Walk 10 feet (QC): 88 Walk 50 ft with 2 Turns(QC): 88 Walk 150 ft (QC): 88 Walking 10ft/uneven surface-QC: 88 Gait Assistive Device: FWW Wheelchair Training Does the Pt Use a Wheelchair?: Yes Wheelchair Distance: 3=150 ft Distance: 150' x2 Wheel 50 ft with 2 turns (QC): 5 Wheel 150 ft (QC): 5 Type of Wheelchair: Manual Stair Training 1 Step (curb) (QC): 88 4 Steps (QC): 88 12 Steps (QC): 88 Balance Picking up an Object (QC): 88 ADL-Treatment Eating (QC): 6 Oral Hygiene (QC): 6 (completes sitting in front of sink in w/c) Shower/Bathe Self (QC): 3 (Pt requires assist with bottom and back cleaning. Pt completes sponge bath in chair, SBA in stance for jose alejandro cleaning) Upper Body Dressing (QC): 5 (s/u) Lower Body Dressing (QC): 4 (SUP in stance during pull up) On/Off Footwear (QC): 4 (SBA due to decreased balance. Pt brings foot across lap, attempts multiple times prior to mastery.) Toileting Hygiene (QC): 4 (CGA in stance due to forward body position to wipe) Toilet Transfer (QC): 5 (SUP during transfer) Assessment/Plan Assessment and Plan Assess & Plan/Chief Complaint Assessment: Fall with debility DM HTN CAD s/p UTI Chronic back pain Wheezing Plan: DC abx Home meds Pain meds IRF protocol Nebs (1) Debility (2) Urinary tract infection Status: Acute (3) IDDM (insulin dependent diabetes mellitus) Status: Acute (4) CAD (coronary artery disease) Status: Chronic (5) Vertigo Status: Acute (6) HTN (hypertension) Status: Acute (7) Left leg weakness Status: Acute CHELY ESPARZA DO Apr 15, 2019 10:50 POS
--- NOTE | 2019-04-15 14:21 | Progress Note ---
Objective Exam Last Set of Vital Signs Vital Signs Date Time Temp Pulse Resp B/P (MAP) Pulse Ox O2 Delivery O2 Flow Rate FiO2 04/15/19 08:30 Room Air 04/15/19 06:23 91 04/15/19 05:10 37.0 54 16 118/67 (84) 04/13/19 05:33 3.00 Capillary Refill : Less Than 3 Seconds I&O Intake and Output 04/15/19 00:00 Intake Total 1100 ml Balance 1100 ml Intake Oral 1100 ml # Voids 6 # Bowel Movements 1 Results Lab Laboratory Tests 04/14/19 16:43: Glucometer 126H 04/14/19 20:19: Glucometer 108 04/15/19 04:46: Glucometer 78 04/15/19 11:06: Glucometer 115H Assessment/Plan Assessment/Plan Assess & Plan/Chief Complaint SPINAL STENOSIS BACK PAIN HYPERTENSION WITH KNOWN CAD HYPERLIPIDEMIA DIABETES MELLITUS PERIPHERAL NEUROPATHY CHRONIC EDEMA SPINAL STENOSIS WITH CHRONIC BACK PAIN - PLANNING ON THERAPY FOR STRENGTHENING PRIOR TO DISCHARGE TO HOME - PT IS NOT A GOOD SURGICAL CANDIDATE PER NEUROSURGEON AND THEY ARE TRYING TO AVOID ANY OPERATIVE INTERVENTION BENIGNO WOULD NEED AN EXTENSIVE PROCEDURE SHOULD SHE GO TO THE O.R. HYPERTENSION WITH CAD - RESUMED HOME REGIMEN, MONITOR PRESSURE CLOSELY AND WILL ADJUST MEDICATIONS SHOULD THAT BE NEEDED. - CONTINUE RANEXA HYPERLIPIDEMIA - ON CRESTOR OUTPATIENT, CONTINUE WITH STATIN THERAPY DIABETES MELLITUS - ON INSULIN OUTPATIENT - ADJUST MEDICATION TO PREVENT LOW BLOOD GLUCOSE READINGS. SHE HAS REQUIRED LESS MEDICATION SINCE SHE HAS BEEN IN THE HOSPITAL. PERIPHERAL NEUROPATHY - MULTIFACTORIAL - DUE TO DM AND SPINAL STENOSIS - SUPPORTIVE CARE CHRONIC EDEMA - PRN KARY MUNOZ MD Apr 15, 2019 14:21 POS
--- NOTE | 2019-04-15 15:12 | Therapy Group Daily Note ---
Therapy Daily Group Note Patient Education Topic Home Safety, Other List Below (handwashing) Exercises LE Seated Exercise, UE Exercise Session Ratio (pt:therapist): 7:2 Goal of Session: Home Safety Strategies, UE/LE Strengthing Goal Met for this Session: Yes Pt Benefit of Group: Contributions to Others, F/U Use of Strategies @Home, Increased Functional Safety, Increased Functional Strength, Improved Cognition, Recognition of Peers, Socialization Other/Notes Pt propelled w/c to [facility] for OT/PT group. Group consisted of introductions (name, place born, favorite fall food), socialization, UE/LE seated exercises, educational topics of hand washing and home safety. Pt able to introduce self appropriately and actively listened to peers. Pt was able to complete exercises and tolerated well. Pt acknowledge understanding of educa tional topics by giving own personal strategies and stories pertaining to topic. After therapy, pt lying in bed with call light/phone in reach. All needs met in room. Start Time: 13:00 Stop Time: 14:10 Total Billed Treatment Time: 70 Total Billed Treatment 1-MALIHA VOSS Apr 15, 2019 15:12 POS
--- NOTE | 2019-04-15 16:17 | NUR ---
Reviewed weekly Care Team Conference with patient. She was agreeable to information discussed, as well as agreeable to a continued stay with review on Thursday, April 20. Will continue to follow.
[2019-04-15 16:56] VITALS: BP 111/51
[2019-04-15] MEDS: diphenhydrAMINE 25 MG TAB (BENADRYL) PO SCH (20:16)
[2019-04-15] MEDS: ROSUVASTATIN 10 MG (CRESTOR) TABLET PO SCH (20:16)
[2019-04-16] MEDS: OMEGA 3 (FISH OIL) 1000 MG CAP PO SCH ×3 (06:04→17:30)
[2019-04-16] MEDS: HYDROcodone/APAP 10 MG/325 MG (LORTAB) TAB PO PRN ×2 (06:04→20:49)
[2019-04-16] MEDS: predniSONE 5 MG TAB PO SCH (06:04)
[2019-04-16] MEDS: inSUlin ASPART (NovoLOG) 1 UNIT/0.01 ML (CHARGE PER UNIT) SC SCH ×5 (06:09→20:49)
[2019-04-16 06:22] VITALS: BP 148/76
[2019-04-16] MEDS: RT-ALBUTEROL/IPRATROPIUM 3 ML (DUONEB) VIAL INH SCH ×2 (06:26→19:14)
[2019-04-16] MEDS: SPIRONOLACTONE 25 MG (ALDACTONE) TAB PO SCH (08:08)
[2019-04-16] MEDS: VITAMIN D3 1,000 UNITS (CHOLECALCIFEROL) TABLET PO SCH (08:08)
[2019-04-16] MEDS: FUROSEMIDE 20 MG (LASIX) TAB PO SCH (08:08)
[2019-04-16] MEDS: PANTOPRAZOLE 40 MG (PROTONIX) TAB PO SCH (08:08)
[2019-04-16] MEDS: ASPIRIN E.C. 81 MG (ECOTRIN) TAB PO SCH (08:08)
[2019-04-16] MEDS: amLODIPine 5 MG (NORVASC) TAB PO SCH (08:08)
[2019-04-16] MEDS: LOSARTAN 25 MG (COZAAR) TAB PO SCH (08:08)
[2019-04-16] MEDS: SENNA W/DOCUSATE (SENOKOT S) TABLET PO SCH ×2 (08:09→20:35)
[2019-04-16] MEDS: RANOLAZINE ER 500 MG TAB (RANEXA) PO SCH ×2 (08:09→20:35)
--- NOTE | 2019-04-16 11:51 | PM&R Progress Note ---
Subjective HPI/CC On Admission Date Seen by Provider: Apr 16, 2019 Time Seen by Provider: 11:30 Chief complaint: Fall with subsequent debility. HPI: This is a 78[address] Clay who has a PMH of CAD, DM, HTN, and chronic back pain who presented to the ER due to falls and weakness found to have a UTI, and had suffered a fall at home which resulted in severe back pain, unable to be managed at home after she had laid on the bathroom floor for 1.5 hours before her found her. She was accessed in the ER, admitted and placed on broad spectrum antibiotics of Rocephin, supportive care and consulted PT and OT who evaluated her to be in need of strengthening in order to ultimately get back to baseline of prior level of functioning and return home. Her prior level of functioning includes ambulation with a walker and she lives at home with her of 58 years. 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 At this current time we did talk about her Hydrocodone that she takes on a regular basis, and I have reviewed urine cultures and blood cultures, so specific bacteria that will need to have continued antibiotic treatment for so those will be discontinued in addition IV fluids will be discontinued since she is consuming adequate oral intake. Subjective/Events-last exam Patient feels more more confident every day Pain is very well controlled Having bowel movements regularly Slept pretty well last night so doing much better without at the bedside today Doesn't mind the albuterol neb treatments twice a day since the wheezing has completely resolved without regimen No falls No nausea Hemoglobin stable Conferred with RN Reviewed therapy notes Checked meds and labs Review of Systems General: Fatigue Pulmonary: Dyspnea Musculoskeletal: back pain Objective Exam Vital Signs Vital Signs Date Time Temp Pulse Resp B/P (MAP) Pulse Ox O2 Delivery O2 Flow Rate FiO2 04/16/19 09:00 Room Air 04/16/19 06:26 92 04/16/19 06:22 36.8 65 18 148/76 (100) 04/13/19 05:33 3.00 Capillary Refill : Less Than 3 Seconds General Appearance: No Apparent Distress, WD/WN, Chronically ill, Obese HEENT: PERRL/EOMI, Normal ENT Inspection, Pharynx Normal, Moist Mucous Membranes Neck: Full Range of Motion, Normal Inspection, Non Tender, Supple Respiratory: Chest Non Tender, Normal Breath Sounds, No Accessory Muscle Use, No Respiratory Distress, Wheezing (upper airway) Cardiovascular: Regular Rate, Rhythm, No Edema, No Gallop, No JVD, No Murmur Gastrointestinal: Normal Bowel Sounds, No Organomegaly, No Pulsatile Mass, Non Tender, Soft Back: Normal Inspection, No CVA Tenderness, No Vertebral Tenderness Extremity: Normal Capillary Refill, Normal Inspection, Normal Range of Motion, Non Tender, No Calf Tenderness, No Pedal Edema Neurologic/Psychiatric: Alert, Oriented x3, No Motor/Sensory Deficits (gener alized weakness lower extremities), Normal Mood/Affect Skin: Normal Color, Warm/Dry Lymphatic: No Adenopathy Results/Procedures Lab Patient resulted labs reviewed. FIM Transfers Therapy Code Descriptions/Definitions Functional [place] Measure: 0=Not Assessed/NA 4=Minimal Assistance 1=Total Assistance 5=Supervision or Setup 2=Maximal Assistance 6=Modified [place] 3=Moderate Assistance 7=Complete IndependenceSCALE: Activities may be completed with or without assistive devices. 6-Yxnbahputd-woqodip completes the activity by him/herself with no assistance from a helper. 5-Set-up or Clean-up Assistance-helper sets up or cleans up; patient completes activity. [place] assists only prior to or following the activity. 4-Supervision or Touching Assistance-helper provides verbal cues and/or touching/steadying and/or contact guard assistance as patient completes activity. Assistance may be provided throughout the activity or intermittently. 3-Partial/Moderate Assistance-helper does LESS THAN HALF the effort. [place] lifts, holds or supports trunk or limbs, but provides less than half the effort. 2-Substantial/Maximal Assistance-helper does MORE THAN HALF the effort. [place] lifts or holds trunk or limbs and provides more than half the effort. 3-Xkktzewnz-rspmdc does ALL the effort. Patient does none of the effort to complete the activity. Or, the assistance of 2 or more helpers is required for the patient to complete the activity. If activity was not attempted, code reason: 7-Patient Refused. 9-Not Applicable-not attempted and the patient did not perform the activity before the current illness, exacerbation or injury. 10-Not Attempted due to Environmental Limitations-(lack of equipment, weather restraints, etc.). 88-Not Attempted due to Medical Conditions or Safety Concerns. Transfers (B, C, W/C) (FIM): 4 Roll Left to Right (QC): 3 Sit to Lying (QC): 4 Sit to Stand (QC): 4 Chair/Eta-ov-Iznvc Xfer(QC): 4 Bed to/from Chair: 4 Car Transfer (QC): 3 ([place] only for L LE into car.) Gait Training Does the Patient Walk?: Yes Gait (FIM): 3 Distance (FIM): 1=up to 49 ft Distance: 4 ft fwd and bkwd, 10 ft fwd Walk 10 feet (QC): 4 Walk 50 ft with 2 Turns(QC): 88 Walk 150 ft (QC): 88 Walking 10ft/uneven surface-QC: 88 Gait Persons Needed: 1 Gait Assistive Device: Parallel Bars Wheelchair Training Does the Pt Use a Wheelchair?: Yes Wheelchair Distance: 9=368-14 ft Distance: 120 Wheel 50 ft with 2 turns (QC): 5 Wheel 150 ft (QC): 5 Type of Wheelchair: Manual Stair Training 1 Step (curb) (QC): 88 4 Steps (QC): 88 12 Steps (QC): 88 Balance Picking up an Object (QC): 88 ADL-Treatment Eating (QC): 6 Oral Hygiene (QC): 6 (completes sitting in front of sink in w/c) Shower/Bathe Self (QC): 3 (Pt requires assist with bottom and back cleaning. Pt completes sponge bath in chair, SBA in stance for jose alejandro cleaning) Upper Body Dressing (QC): 5 (s/u) Lower Body Dressing (QC): 4 (SUP in stance during pull up) On/Off Footwear (QC): 4 (SBA due to decreased balance. Pt brings foot across lap, attempts multiple times prior to mastery.) Toileting Hygiene (QC): 4 (CGA in stance due to forward body position to wipe) Toilet Transfer (QC): 5 (SUP during transfer) Assessment/Plan Assessment and Plan Assess & Plan/Chief Complaint Assessment: Fall with debility DM HTN CAD s/p UTI Chronic back pain Wheezing Plan: DC abx Home meds Pain meds IRF protocol Nebs (1) Debility (2) Urinary tract infection Status: Acute (3) IDDM (insulin dependent diabetes mellitus) Status: Acute (4) CAD (coronary artery disease) Status: Chronic (5) Vertigo Status: Acute (6) HTN (hypertension) Status: Acute (7) Left leg weakness Status: Acute CHELY ESPARZA DO Apr 16, 2019 11:51 POS
--- NOTE | 2019-04-16 12:30 | Physical Therapy Daily Note ---
PT Daily Note-Current Subjective Pt limited by (R) knee pain and weakness. Pt denied pain at rest but says "It is different story when I am up." Pt agreeable to treatment in room. Pt requested BR privileges and time to go to sink for teeth and hair. Mental Status Patient Orientation: Person, Place, Situation Transfers SCALE: Activities may be completed with or without assistive devices. 6-Uytnkppccz-gvhiglb completes the activity by him/herself with no assistance from a helper. 5-Set-up or Clean-up Assistance-helper sets up or cleans up; patient completes activity. [place] assists only prior to or following the activity. 4-Supervision or Touching Assistance-helper provides verbal cues and/or touching/steadying and/or contact guard assistance as patient completes activity. Assistance may be provided throughout the activity or intermittently. 3-Partial/Moderate Assistance-helper does LESS THAN HALF the effort. [place] lifts, holds or supports trunk or limbs, but provides less than half the effort. 2-Substantial/Maximal Assistance-helper does MORE THAN HALF the effort. [place] lifts or holds trunk or limbs and provides more than half the effort. 7-Hospuiqtc-vldvly does ALL the effort. Patient does none of the effort to complete the activity. Or, the assistance of 2 or more helpers is required for the patient to complete the activity. If activity was not attempted, code reason: 7-Patient Refused. 9-Not Applicable-not attempted and the patient did not perform the activity before the current illness, exacerbation or injury. 10-Not Attempted due to Environmental Limitations-(lack of equipment, weather restraints, etc.). 88-Not Attempted due to Medical Conditions or Safety Concerns. Weight Bearing Right Lower Extremity: Right Full Weight Bearing Left Lower Extremity: Left Full Weight Bearing Exercises Supine Ex: Ankle pumps, Quad Set, Heel Slides, Short Arc Quads, Hip abd/add Supine Reps: 10 Treatments Pt bed mobility and transfers mod (I). Pt amb with FWW and CGA, close f/u of w/c in the room due to weak LE and UE during ambulation. Pt amb 2 x 10ft before fatigued and requiring w/c brought in behind pt. Pt used BR with SBA by SPT w/c to toilet and toilet to w/c. Pt used sink for teeth cleaning and brushing hair from w/c, SBA. Pt back to bed with call light and all needs met. Assessment Current Status: Fair Progress Pt presents with poor endurance, fatigues very quickly. (B) UE and LE's tremble during ambulation due to weakness. Pt demonstrates safe SPT's. Pt would benefit from continued therapy to improved strength and safe mobility. PT Short Term Goals Short Term Goals Time Frame: Apr 19, 2019 Gait Distance Comment: 10' Gait Assistive Device: FWW (CGA) Wheelchair Distance: 120 PT Fdc Goals Fdc Goals PT Fdc Goals Time Frame: May 03, 2019 Sit to Lying (QC): 4 (SBA) Lying-Sitting on Side/Bed(QC): 4 (SBA) Sit to Stand (QC): 4 (SBA) Roll Left to Right (QC): 6 Chair/Clk-gv-Xgzfs Xfer(QC): 4 (SBA) Car Transfer (QC): 4 (SBA) Does the Patient Walk: Yes Distance: 50' Walk 10 feet (QC): 4 (SBA) Walk 10ft-Uneven Surface(QC): 4 (CGA) Walk 50ft with 2 Turns (QC): 4 (SBA) Walk 150 ft (QC): 88 Gait Assistive Device: FWW Does the Pt use WC or Scooter?: Yes Distance: 300' Wheel 50 feet with 2 turns (QC: 6 # of Steps: 1 1 Step (curb) (QC): 3 PT Plan Treatment/Plan Treatment Plan: Continue Plan of Care Treatment Plan: Bed Mobility, Concurrent Therapy, Education, Functional Activit y [place], Functional Strength, Group Therapy, Gait, Safety, Therapeutic Exercise, Transfers Treatment Duration: Apr 13, 2019 Frequency: At least 5 of 7 days/Wk (IRF) Estimated Hrs Per Day: 1.5 hours per day Patient and/or Family Agrees t: Yes Time/GCodes Time In: 1100 Time Out: 1125 Total Billed Treatment Time: 25 Total Billed Treatment 1, gait 15', FA 10' GAVIN FERNANDEZ CPTA Apr 16, 2019 12:30 POS
[2019-04-16 17:26] VITALS: BP 133/69
[2019-04-16] MEDS: diphenhydrAMINE 25 MG TAB (BENADRYL) PO SCH (20:35)
[2019-04-16] MEDS: ROSUVASTATIN 10 MG (CRESTOR) TABLET PO SCH (20:35)
--- NOTE | 2019-04-16 21:05 | NUR ---
INFORMED DR. ESPARZA THAT PATIENT'S BLOOD SUGAR IS CURRENTLY 82, THAT SHE IS EATING A SNACK AND THAT SHE HAS 20 UNITS OF LEVEMIR DUE AT THIS TIME. RECEIVED ORDERS TO HOLD LEVEMIR AT THIS TIME. WILL CONTINUE TO MONITOR.
[2019-04-17 05:16] VITALS: BP 132/74
[2019-04-17] MEDS: OMEGA 3 (FISH OIL) 1000 MG CAP PO SCH ×3 (06:16→17:15)
[2019-04-17] MEDS: inSUlin ASPART (NovoLOG) 1 UNIT/0.01 ML (CHARGE PER UNIT) SC SCH ×5 (06:16→21:12)
[2019-04-17] MEDS: predniSONE 5 MG TAB PO SCH (06:16)
--- NOTE | 2019-04-17 09:00 | NUR ---
Pt up to bathroom to void. Assist x 1/ tolerated well. Pt did need to sit in w/c for while before returning and sitting in chair. Pt up to chair with feet elevated. Pt bedding changed/sponge bath done. Tolerated well. Pt took morning medication but only took one Senokot pill/ refused one. Stated she is not an every day BM person usually. States she usually goes once every other day. Pt has trace swelling in left leg at ankle/darkened skin to lower legs bilaterally. Pt pedal pulses diminished but present bilaterally. Pt tolerated movement/bath well. Multiple bruising in various stages noted throughout arms bilaterally. No skin break in bruising area.
[2019-04-17] MEDS: amLODIPine 5 MG (NORVASC) TAB PO SCH (09:17)
[2019-04-17] MEDS: ASPIRIN E.C. 81 MG (ECOTRIN) TAB PO SCH (09:17)
[2019-04-17] MEDS: PANTOPRAZOLE 40 MG (PROTONIX) TAB PO SCH (09:17)
[2019-04-17] MEDS: LOSARTAN 25 MG (COZAAR) TAB PO SCH (09:18)
[2019-04-17] MEDS: SPIRONOLACTONE 25 MG (ALDACTONE) TAB PO SCH (09:18)
[2019-04-17] MEDS: VITAMIN D3 1,000 UNITS (CHOLECALCIFEROL) TABLET PO SCH (09:18)
[2019-04-17] MEDS: RANOLAZINE ER 500 MG TAB (RANEXA) PO SCH ×2 (09:18→21:16)
[2019-04-17] MEDS: FUROSEMIDE 20 MG (LASIX) TAB PO SCH (09:18)
[2019-04-17] MEDS: SENNA W/DOCUSATE (SENOKOT S) TABLET PO SCH ×2 (09:19→21:17)
[2019-04-17] MEDS: RT-ALBUTEROL/IPRATROPIUM 3 ML (DUONEB) VIAL INH SCH ×2 (09:38→20:18)
--- NOTE | 2019-04-17 14:04 | PM&R Progress Note ---
Subjective HPI/CC On Admission Date Seen by Provider: Apr 17, 2019 Time Seen by Provider: 13:30 Chief complaint: Fall with subsequent debility. HPI: This is a 78[address] Clay who has a PMH of CAD, DM, HTN, and chronic back pain who presented to the ER due to falls and weakness found to have a UTI, and had suffered a fall at home which resulted in severe back pain, unable to be managed at home after she had laid on the bathroom floor for 1.5 hours before her found her. She was accessed in the ER, admitted and placed on broad spectrum antibiotics of Rocephin, supportive care and consulted PT and OT who evaluated her to be in need of strengthening in order to ultimately get back to baseline of prior level of functioning and return home. Her prior level of functioning includes ambulation with a walker and she lives at home with her of 58 years. 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 At this current time we did talk about her Hydrocodone that she takes on a regular basis, and I have reviewed urine cultures and blood cultures, so specific bacteria that will need to have continued antibiotic treatment for so those will be discontinued in addition IV fluids will be discontinued since she is consuming adequate oral intake. Subjective/Events-last exam Patient feels more more confident every day Pain is very well controlled on chronic pain meds Having bowel movements regularly Took a nap before I arrived Had high sugar last night Doesn't mind the albuterol neb treatments twice a day since the wheezing has completely resolved without regimen No falls No nausea Hemoglobin stable Conferred with RN Reviewed therapy notes Checked meds and labs Review of Systems Musculoskeletal: back pain, leg pain Objective Exam Vital Signs Vital Signs Date Time Temp Pulse Resp B/P (MAP) Pulse Ox O2 Delivery O2 Flow Rate FiO2 04/17/19 09:39 92 Room Air 04/17/19 05:16 37.0 64 16 132/74 (93) 04/13/19 05:33 3.00 Capillary Refill : Less Than 3 Seconds General Appearance: No Apparent Distress, WD/WN, Chronically ill, Obese HEENT: PERRL/EOMI, Normal ENT Inspection, Pharynx Normal, Moist Mucous Membran es Neck: Full Range of Motion, Normal Inspection, Non Tender, Supple Respiratory: Chest Non Tender, Normal Breath Sounds, No Accessory Muscle Use, No Respiratory Distress, Wheezing (upper airway) Cardiovascular: Regular Rate, Rhythm, No Edema, No Gallop, No JVD, No Murmur Gastrointestinal: Normal Bowel Sounds, No Organomegaly, No Pulsatile Mass, Non Tender, Soft Back: Normal Inspection, No CVA Tenderness, No Vertebral Tenderness Extremity: Normal Capillary Refill, Normal Inspection, Normal Range of Motion, Non Tender, No Calf Tenderness, No Pedal Edema Neurologic/Psychiatric: Alert, Oriented x3, No Motor/Sensory Deficits (generalized weakness lower extremities), Normal Mood/Affect Skin: Normal Color, Warm/Dry Lymphatic: No Adenopathy Results/Procedures Lab Patient resulted labs reviewed. FIM Transfers Therapy Code Descriptions/Definitions Functional [place] Measure: 0=Not Assessed/NA 4=Minimal Assistance 1=Total Assistance 5=Supervision or Setup 2=Maximal Assistance 6=Modified [place] 3=Moderate Assistance 7=Complete IndependenceSCALE: Activities may be completed with or without assistive devices. 4-Qbmvztgvua-nmiybvf completes the activity by him/herself with no assistance from a helper. 5-Set-up or Clean-up Assistance-helper sets up or cleans up; patient completes activity. [place] assists only prior to or following the activity. 4-Supervision or Touching Assistance-helper provides verbal cues and/or touching/steadying and/or contact guard assistance as patient completes activity. Assistance may be provided throughout the activity or intermittently. 3-Partial/Moderate Assistance-helper does LESS THAN HALF the effort. [place] lifts, holds or supports trunk or limbs, but provides less than half the effort. 2-Substantial/Maximal Assistance-helper does MORE THAN HALF the effort. [place] lifts or holds trunk or limbs and provides more than half the effort. 1-Idspqsrnv-vhtuwo does ALL the effort. Patient does none of the effort to complete the activity. Or, the assistance of 2 or more helpers is required for the patient to complete the activity. If activity was not attempted, code reason: 7-Patient Refused. 9-Not Applicable-not attempted and the patient did not perform the activity before the current illness, exacerbation or injury. 10-Not Attempted due to Environmental Limitations-(lack of equipment, weather restraints, etc.). 88-Not Attempted due to Medical Conditions or Safety Concerns. Transfers (B, C, W/C) (FIM): 4 Roll Left to Right (QC): 3 Sit to Lying (QC): 4 Sit to Stand (QC): 4 Chair/Jfm-nn-Kkmbg Xfer(QC): 4 Bed to/from Chair: 4 Car Transfer (QC): 3 (George only for L LE into car.) Gait Training Does the Patient Walk?: Yes Gait (FIM): 3 Distance (FIM): 1=up to 49 ft Distance: 4 ft fwd and bkwd, 10 ft fwd Walk 10 feet (QC): 4 Walk 50 ft with 2 Turns(QC): 88 Walk 150 ft (QC): 88 Walking 10ft/uneven surface-QC: 88 Gait Persons Needed: 1 Gait Assistive Device: Parallel Bars Wheelchair Training Does the Pt Use a Wheelchair?: Yes Wheelchair Distance: 8=908-95 ft Distance: 120 Wheel 50 ft with 2 turns (QC): 5 Wheel 150 ft (QC): 5 Type of Wheelchair: Manual Stair Training 1 Step (curb) (QC): 88 4 Steps (QC): 88 12 Steps (QC): 88 Balance Picking up an Object (QC): 88 ADL-Treatment Eating (QC): 6 Oral Hygiene (QC): 6 (completes sitting in front of sink in w/c) Shower/Bathe Self (QC): 3 (Pt requires assist with bottom and back cleaning. Pt completes sponge bath in chair, SBA in stance for jose alejandro cleaning) Upper Body Dressing (QC): 5 (s/u) Lower Body Dressing (QC): 4 (SUP in stance during pull up) On/Off Footwear (QC): 4 (SBA due to decreased balance. Pt brings foot across lap, attempts multiple times prior to mastery.) Toileting Hygiene (QC): 4 (CGA in stance due to forward body position to wipe) Toilet Transfer (QC): 5 (SUP during transfer) Assessment/Plan Assessment and Plan Assess & Plan/Chief Complaint Assessment: Fall with debility DM HTN CAD s/p UTI Chronic back pain Wheezing Plan: Monitor BP and BS Home meds Pain meds IRF protocol Nebs (1) Debility (2) Urinary tract infection Status: Acute (3) IDDM (insulin dependent diabetes mellitus) Status: Acute (4) CAD (coronary artery disease) Status: Chronic (5) Vertigo Status: Acute (6) HTN (hypertension) Status: Acute (7) Left leg weakness Status: Acute CHELY ESPARZA DO Apr 17, 2019 14:04 POS
[2019-04-17 17:07] VITALS: BP 122/69
[2019-04-17] MEDS: diphenhydrAMINE 25 MG TAB (BENADRYL) PO SCH (21:16)
[2019-04-17] MEDS: ROSUVASTATIN 10 MG (CRESTOR) TABLET PO SCH (21:17)
[2019-04-17] MEDS: HYDROcodone/APAP 10 MG/325 MG (LORTAB) TAB PO PRN (21:21)
--- NOTE | 2019-04-18 02:45 | NUR ---
TO BR @ THIS TIME. CONTACT GUARD FROM BED TO STANDING, GAIT BELT FOR SAFETY AND FWW TO BR. PATIENT MANEUVERED OWN CLOTHING AND PERFORMED HYGIENE. PATIENT ATTEMPTED BUT UNABLE TO AMBULATE W/FWW BACK TO BED AFTER TOILETING. PATIENT TRANSFERRED WITH SBA TO WC, PROPELLED SELF TO BED. PERFORMED WC TO BED TRANSFER WITH ONLY SUPERVISION. PATIENT DEMONSTRATED PROPER BODY MECHANICS AND TRANSFER CROSSOVER FROM THERAPY. DESPITE PAIN SCALE EDUCATION BY THIS RN, PATIENT RATES PAIN AN "8" STATES THAT SHE IS FEELING PRETTY GOOD AND PAIN IS WELL CONTROLLED AT THIS TIME. PATIENT IS INDEPENDENT WITH BED MOBILITY AND SIDE LYING RIGHT AT THIS TIME. DENIES NEEDS OR C/O. CONT TO MONITOR.
[2019-04-18 06:14] LABS: BASOPHILS % (AUTO) 0 % (0-10); EOSINOPHILS # (AUTO) 0.1 10^3/uL (0.0-0.3); EOSINOPHILS % (AUTO) 2 % (0-10); HEMATOCRIT 40 % (35-52); HEMOGLOBIN 13.4 G/DL (11.5-16.0); LYMPHOCYTES # (AUTO) 1.4 X 10^3 (1.0-4.0); LYMPHOCYTES % (AUTO) 31 % (12-44); MEAN CORPUSCULAR HEMOGLOBIN 33 PG (25-34); MEAN CORPUSCULAR HGB CONC 34 G/DL (32-36); MEAN CORPUSCULAR VOLUME 100 FL (80-99); MEAN PLATELET VOLUME 9.8 FL (7.4-10.4); MONOCYTES # (AUTO) 0.6 X 10^3 (0.0-1.0); MONOCYTES % (AUTO) 13 % (0-12); NEUTROPHILS # (AUTO) 2.5 X 10^3 (1.8-7.8); NEUTROPHILS % (AUTO) 54 % (42-75); PLATELET COUNT 140 10^3/uL (130-400); RED CELL DISTRIBUTION WIDTH 13.2 % (10.0-14.5); WHITE BLOOD COUNT 4.6 10^3/uL (4.3-11.0)
[2019-04-18 06:25] LABS: ALANINE AMINOTRANSFERASE 21 U/L (0-55); ALBUMIN 3.1 GM/DL (3.2-4.5); ALKALINE PHOSPHATASE 40 U/L (40-136); BILIRUBIN,TOTAL 0.6 MG/DL (0.1-1.0); BUN/CREATININE RATIO 12; CALCIUM 8.7 MG/DL (8.5-10.1); CARBON DIOXIDE 24 MMOL/L (21-32); CHLORIDE 106 MMOL/L (98-107); CREATININE SERUM 0.89 MG/DL (0.60-1.30); GFR ESTIMATED > 60; GLUCOSE 77 MG/DL (70-105); POTASSIUM 3.8 MMOL/L (3.6-5.0); SODIUM 140 MMOL/L (135-145); TOTAL PROTEIN 5.1 GM/DL (6.4-8.2)
[2019-04-18] MEDS: inSUlin ASPART (NovoLOG) 1 UNIT/0.01 ML (CHARGE PER UNIT) SC SCH ×5 (07:03→21:43)
[2019-04-18 07:04] VITALS: BP 150/72
[2019-04-18] MEDS: predniSONE 5 MG TAB PO SCH (07:08)
[2019-04-18] MEDS: OMEGA 3 (FISH OIL) 1000 MG CAP PO SCH ×3 (07:08→17:48)
--- NOTE | 2019-04-18 08:24 | Occupational Ther Daily Note ---
OT Current Status-Daily Note Subjective Pt seen in recliner chair, c/o wheeziness in chest and states fever is down. Pt agreeable to OT tx session. Mental Status/Objective Patient Orientation: Normal For Age ADL-Treatment Therapy Code Descriptions/Definitions Functional [place] Measure: 0=Not Assessed/NA 4=Minimal Assistance 1=Total Assistance 5=Supervision or Setup 2=Maximal Assistance 6=Modified [place] 3=Moderate Assistance 7=Complete IndependenceSCALE: Activities may be completed with or without assistive devices. 8-Eprgjbdxvb-ylysian completes the activity by him/herself with no assistance from a helper. 5-Set-up or Clean-up Assistance-helper sets up or cleans up; patient completes activity. [place] assists only prior to or following the activity. 4-Supervision or Touching Assistance-helper provides verbal cues and/or touching/steadying and/or contact guard assistance as patient completes activity. Assistance may be provided throughout the activity or intermittently. 3-Partial/Moderate Assistance-helper does LESS THAN HALF the effort. [place] lifts, holds or supports trunk or limbs, but provides less than half the effort. 2-Substantial/Maximal Assistance-helper does MORE THAN HALF the effort. [place] lifts or holds trunk or limbs and provides more than half the effort. 6-Hirdpjhnp-rkkuuu does ALL the effort. Patient does none of the effort to complete the activity. Or, the assistance of 2 or more helpers is required for the patient to complete the activity. If activity was not attempted, code reason: 7-Patient Refused. 9-Not Applicable-not attempted and the patient did not perform the activity before the current illness, exacerbation or injury. 10-Not Attempted due to Environmental Limitations-(lack of equipment, weather restraints, etc.). 88-Not Attempted due to Medical Conditions or Safety Concerns. Eating (QC): 6 (States completed eating breakfast this morning.) Oral Hygiene (QC): 6 (at sink in w/c.) Shower/Bathe Self (QC): 3 (SBA in stance for bottom/ jose alejandro hygiene. Min A for back washing ( performs for pt. at home)) Upper Body Dressing (QC): 5 (s/u) Lower Body Dressing (QC): 5 (s/u) Toileting Hygiene (QC): 4 (SBA in stance.) Toilet Transfer (QC): 4 (SBA) Other Treatment Pt c/o not sleeping well previous night. States she made it to bathroom toilet with FWW with assist but was unable to make it back over weekend. Pt educated on diaphragmatic breathing techniques and sitting in recliner chair throughout day. pt agreeable to shower, ambulates with FWW about 10 steps, requires rest break in w/c. Pt pushes w/c to shower, able to transfer with SBA and use of grab bars. Pt completes shower with min A. Pt completes grooming in w/c in front of sink, transfers w/c to recliner chair with CGA. Pt completes standing tolerance activity, able to stand 25-45 seconds 5x within 10 minutes, requiring rest breaks in between. Pt educated on exercises and left with x-ray techs in w/c. Education OT Patient Education: Correct positioning, Disease process, Energy conservation, Exercise program, Home exercise program, Modified ADL techniques, Safety issues Teaching Recipient: Patient Teaching Methods: Demonstration, Discussion Response to Teaching: Verbalize Understanding, Return Demonstration OT Short Term Goals Short Term Goals Upper Body Dressing(FIM): 4 (met) Lower Body Dressing(FIM): 4 (met) Transfers (B,C,W/C) (FIM): 5 Additional Short Term Goals: 1-Demonstrate ADL Tasks, 2-Verbalize Understanding, 3-ImproveStrength/[place] 1=Demonstrate adherence to instructed precautions during ADL tasks. 2=Patient will verbalize/demonstrate understanding of assistive devices/modific ations for ADL. 3=Patient will improve strength/tolerance for activity to enable patient to perform ADL's. 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 2=Patient will verbalize/demonstrate understanding of assistive devices/modifications for ADL. 3=Patient will improve strength/tolerance for activity to enable patient to perform ADL's. OT Education/Plan Problem List/Assessment Assessment: Decreased Activ Tolerance, Decreased UE Strength, Impaired I ADL's, Impaired Self-Care Skills Discharge Recommendations Plan/Recommendations: Continue POC Patient/Family Goals Pt wishes to continue working towards strength/ endurance of UB. Treatment Plan/Plan of Care Treatment,Training & Education: Yes Patient would benefit from OT for education, treatment and training to promote independence in ADL's, mobility, safety and/or upper extremity function for ADL's. Plan of Care: ADL Retraining, Caregiver Training, Concurrent Therapy, Functional Mobility, Group Exercise/Act as Ind, UE Funct Exercise/Act Treatment Duration: Apr 26, 2019 Frequency: At least 5 of 7 days/Wk (IRF) Estimated Hrs Per Day: 1.5 hours per day Agreement: Yes Rehab Potential: Fair Time/GCodes Start Time: 07:45 Stop Time: 09:15 Total Time Billed (hr/min): 90 Billed Treatment Time 1, ADL4 (60), EX 2(30)= 90 PREMA RODRIGUEZ OTR Apr 18, 2019 08:24 POS
[2019-04-18] MEDS: SENNA W/DOCUSATE (SENOKOT S) TABLET PO SCH ×2 (09:00→21:43)
--- NOTE | 2019-04-18 09:03 | PM&R Progress Note ---
CHELY ESPARZA DO 04/18/19 0903: Subjective HPI/CC On Admission Date Seen by Provider: Apr 18, 2019 Time Seen by Provider: 08:30 Chief complaint: Fall with subsequent debility. HPI: This is a 78[address] Clay who has a PMH of CAD, DM, HTN, and chronic back pain who presented to the ER due to falls and weakness found to have a UTI, and had suffered a fall at home which resulted in severe back pain, unable to be managed at home after she had laid on the bathroom floor for 1.5 hours before her found her. She was accessed in the ER, admitted and placed on broad spectrum antibiotics of Rocephin, supportive care and consulted PT and OT who evaluated her to be in need of strengthening in order to ultimately get back to baseline of prior level of functioning and return home. Her prior level of functioning includes ambulation with a walker and she lives at home with her of 58 years. 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 At this current time we did talk about her Hydrocodone that she takes on a regular basis, and I have reviewed urine cultures and blood cultures, so specific bacteria that will need to have continued antibiotic treatment for so those will be discontinued in addition IV fluids will be discontinued since she is consuming adequate oral intake. Subjective/Events-last exam Cough without major coarseness on lung exam Breathing treatments maintained BID Will check chest x ray Will start Advair or Symbicort for inhaled corticosteroid coverage Robitussin dm will be also restarted Conferred with RN Reviewed therapy notes Checked meds and labs Review of Systems Pulmonary: Cough Objective Exam Vital Signs Vital Signs Date Time Temp Pulse Resp B/P (MAP) Pulse Ox O2 Delivery O2 Flow Rate FiO2 04/18/19 19:00 95 Room Air 04/18/19 16:11 36.5 62 14 123/73 (90) 04/17/19 23:03 3.00 Capillary Refill : Less Than 3 Seconds General Appearance: No Apparent Distress, WD/WN, Chronically ill, Obese HEENT: PERRL/EOMI, Normal ENT Inspection, Pharynx Normal, Moist Mucous Membranes Neck: Full Range of Motion, Normal Inspection, Non Tender, Supple Respiratory: Chest Non Tender, Normal Breath Sounds, No Accessory Muscle Use, No Respiratory Distress, Wheezing (upper airway) Cardiovascular: Regular Rate, Rhythm, No Edema, No Gallop, No JVD, No Murmur Gastrointestinal: Normal Bowel Sounds, No Organomegaly, No Pulsatile Mass, Non Tender, Soft Back: Normal Inspection, No CVA Tenderness, No Vertebral Tenderness Extremity: Normal Capillary Refill, Normal Inspection, Normal Range of Motion, Non Tender, No Calf Tenderness, No Pedal Edema Neurologic/Psychiatric: Alert, Oriented x3, No Motor/Sensory Deficits (generalized weakness lower extremities), Normal Mood/Affect Skin: Normal Color, Warm/Dry Lymphatic: No Adenopathy Results/Procedures Lab Laboratory Tests 04/18/19 05:42 Patient resulted labs reviewed. FIM Transfers Therapy Code Descriptions/Definitions Functional [place] Measure: 0=Not Assessed/NA 4=Minimal Assistance 1=Total Assistance 5=Supervision or Setup 2=Maximal Assistance 6=Modified [place] 3=Moderate Assistance 7=Complete IndependenceSCALE: Activities may be completed with or without assistive devices. 7-Dymmrtslta-iemeepw completes the activity by him/herself with no assistance from a helper. 5-Set-up or Clean-up Assistance-helper sets up or cleans up; patient completes activity. [place] assists only prior to or following the activity. 4-Supervision or Touching Assistance-helper provides verbal cues and/or touching/steadying and/or contact guard assistance as patient completes activity. Assistance may be provided throughout the activity or intermittently. 3-Partial/Moderate Assistance-helper does LESS THAN HALF the effort. [place] l ifts, holds or supports trunk or limbs, but provides less than half the effort. 2-Substantial/Maximal Assistance-helper does MORE THAN HALF the effort. [place] lifts or holds trunk or limbs and provides more than half the effort. 0-Dmrvpgiyv-dqkicp does ALL the effort. Patient does none of the effort to complete the activity. Or, the assistance of 2 or more helpers is required for the patient to complete the activity. If activity was not attempted, code reason: 7-Patient Refused. 9-Not Applicable-not attempted and the patient did not perform the activity before the current illness, exacerbation or injury. 10-Not Attempted due to Environmental Limitations-(lack of equipment, weather restraints, etc.). 88-Not Attempted due to Medical Conditions or Safety Concerns. Transfers (B, C, W/C) (FIM): 4 Roll Left to Right (QC): 3 Sit to Lying (QC): 4 Sit to Stand (QC): 4 Chair/Ifr-qw-Avtcv Xfer(QC): 4 Bed to/from Chair: 4 Car Transfer (QC): 3 ([place] only for L LE into car.) Gait Training Does the Patient Walk?: Yes Gait (FIM): 3 Distance (FIM): 1=up to 49 ft Distance: 4 ft fwd and bkwd, 10 ft fwd Walk 10 feet (QC): 4 Walk 50 ft with 2 Turns(QC): 88 Walk 150 ft (QC): 88 Walking 10ft/uneven surface-QC: 88 Gait Persons Needed: 1 Gait Assistive Device: Parallel Bars Wheelchair Training Does the Pt Use a Wheelchair?: Yes Wheelchair Distance: 8=084-68 ft Distance: 120 Wheel 50 ft with 2 turns (QC): 5 Wheel 150 ft (QC): 5 Type of Wheelchair: Manual Stair Training 1 Step (curb) (QC): 88 4 Steps (QC): 88 12 Steps (QC): 88 Balance Picking up an Object (QC): 88 ADL-Treatment Eating (QC): 6 Oral Hygiene (QC): 6 (completes sitting in front of sink in w/c) Shower/Bathe Self (QC): 3 (Pt requires assist with bottom and back cleaning. Pt completes sponge bath in chair, SBA in stance for jose alejandro cleaning) Upper Body Dressing (QC): 5 (s/u) Lower Body Dressing (QC): 4 (SUP in stance during pull up) On/Off Footwear (QC): 4 (SBA due to decreased balance. Pt brings foot across lap, attempts multiple times prior to mastery.) Toileting Hygiene (QC): 4 (CGA in stance due to forward body position to wipe) Toilet Transfer (QC): 5 (SUP during transfer) Assessment/Plan Assessment and Plan Assess & Plan/Chief Complaint Assessment: Fall with debility DM HTN CAD s/p UTI Chronic back pain Wheezing with cough Plan: Monitor BP and BS Home meds Pain meds IRF protocol Nebs Check CXR ICS (1) Debility (2) Urinary tract infection Status: Acute (3) IDDM (insulin dependent diabetes mellitus) Status: Acute (4) CAD (coronary artery disease) Status: Chronic (5) Vertigo Status: Acute (6) HTN (hypertension) Status: Acute (7) Left leg weakness Status: Acute KEVAN SOUZA PTA 04/18/19 1449: CHELY ESPARZA DO Apr 18, 2019 09:03 POSKEVAN SOUZA PTA Apr 18, 2019 14:49 POS
--- NOTE | 2019-04-18 09:43 | Diagnostic Imaging Report ---
EXAMINATION: CHEST (PA AND LATERAL). CLINICAL INDICATION: 78-year-old female, coarse lung sounds. Shortness of breath. COMPARISON: April 09, 2019. FINDINGS: Stable overall appearance of the cardiomediastinal silhouette. There are technical limitations of the exam relating to patient body habitus and difficulties with exposure. There is no identified pneumothorax. There is no pleural effusion. There is no identified focal airspace consolidation. IMPRESSION: 1. No identified acute cardiopulmonary abnormality. 2. Technically limited exam. Dictated by: Dictated on workstation # [id number]
[2019-04-18 09:46] VITALS: BP 125/77
[2019-04-18] MEDS: amLODIPine 5 MG (NORVASC) TAB PO SCH (09:47)
[2019-04-18] MEDS: VITAMIN D3 1,000 UNITS (CHOLECALCIFEROL) TABLET PO SCH (09:47)
[2019-04-18] MEDS: HYDROcodone/APAP 10 MG/325 MG (LORTAB) TAB PO PRN ×2 (09:47→20:39)
[2019-04-18] MEDS: guaiFENesin/DM (ROBITUSSIN DM) 10 ML UDC PO PRN ×2 (09:47→20:40)
[2019-04-18] MEDS: FUROSEMIDE 20 MG (LASIX) TAB PO SCH (09:48)
[2019-04-18] MEDS: LOSARTAN 25 MG (COZAAR) TAB PO SCH (09:48)
[2019-04-18] MEDS: RANOLAZINE ER 500 MG TAB (RANEXA) PO SCH ×2 (09:48→20:38)
[2019-04-18] MEDS: ASPIRIN E.C. 81 MG (ECOTRIN) TAB PO SCH (09:48)
[2019-04-18] MEDS: PANTOPRAZOLE 40 MG (PROTONIX) TAB PO SCH (09:48)
[2019-04-18] MEDS: SPIRONOLACTONE 25 MG (ALDACTONE) TAB PO SCH (09:48)
[2019-04-18] MEDS: RT-ADVAIR HFA 115/21 MCG PER PUFF IH SCH ×2 (09:56→18:58)
[2019-04-18] MEDS: RT-ALBUTEROL/IPRATROPIUM 3 ML (DUONEB) VIAL INH SCH ×2 (09:56→18:58)
--- NOTE | 2019-04-18 11:22 | Physical Therapy Daily Note ---
PT Daily Note-Current Subjective Pt. feels she has made really great progress but has a cough today and hopes she is not getting pnuemonia, "they are checking for pnuemonia" Pain Numeric Pain Scale: 4 Location: Medial Location Body Site: Back Pain Description: Ache Mental Status Patient Orientation: Normal For Age Transfers SCALE: Activities may be completed with or without assistive devices. 2-Sjlifrfifn-desvoxe completes the activity by him/herself with no assistance from a helper. 5-Set-up or Clean-up Assistance-helper sets up or cleans up; patient completes activity. [place] assists only prior to or following the activity. 4-Supervision or Touching Assistance-helper provides verbal cues and/or touching/steadying and/or contact guard assistance as patient completes activity. Assistance may be provided throughout the activity or intermittently. 3-Partial/Moderate Assistance-helper does LESS THAN HALF the effort. [place] lifts, holds or supports trunk or limbs, but provides less than half the effort. 2-Substantial/Maximal Assistance-helper does MORE THAN HALF the effort. [place] lifts or holds trunk or limbs and provides more than half the effort. 5-Sxnjefshp-hzphjp does ALL the effort. Patient does none of the effort to complete the activity. Or, the assistance of 2 or more helpers is required for the patient to complete the activity. If activity was not attempted, code reason: 7-Patient Refused. 9-Not Applicable-not attempted and the patient did not perform the activity before the current illness, exacerbation or injury. 10-Not Attempted due to Environmental Limitations-(lack of equipment, weather restraints, etc.). 88-Not Attempted due to Medical Conditions or Safety Concerns. Transfers (B, C, W/C): 5 Roll Left to Right (QC): 5 Sit to Lying (QC): 5 Sit to Stand (QC): 5 Chair/Hxg-iy-Sxbcv Xfer(QC): 5 Bed to/from Chair: 5 Weight Bearing Right Lower Extremity: Right Full Weight Bearing Left Lower Extremity: Left Full Weight Bearing Gait Training Does the Patient Walk?: Yes Gait: 4 Walk 10 feet (QC): 4 Gait Persons Needed: 1 Gait Assistive Device: FWW pt. walked 45ftx3, 10 ftx2, pt. requires w/c follow up as she has "melting/droppping" incidents, this MARKETING CAMPAIGN ANALYST observes this to lesser degree this date 2-3 xs during gait. Wheelchair Training Does the Pt Use a Wheelchair?: Yes Wheelchair Distance: 3=150 ft Wheel 50 ft with 2 turns (QC): 6 Wheel 150 ft (QC): 6 Type of Wheelchair: Manual good w/c skills Exercises Supine Ex: Rolling, Heel Slides, Hip abd/add Supine Reps: 10 Seated Therapy Exercises: Ankle pumps, Sit to stand, Long arc quads, Hip flexion Seated Reps: 10 Assessment Current Status: Good Progress discussed safety and gait goals for home situation PT Short Term Goals Short Term Goals Time Frame: Apr 19, 2019 Gait Distance Comment: 10' Gait Assistive Device: FWW (CGA) Wheelchair Distance: 120 PT Fpc Goals Complaint Supervisor Goals PT Complaint Supervisor Goals Time Frame: May 03, 2019 Sit to Lying (QC): 4 (SBA) Lying-Sitting on Side/Bed(QC): 4 (SBA) Sit to Stand (QC): 4 (SBA) Roll Left to Right (QC): 6 Chair/Pzi-zf-Sctgz Xfer(QC): 4 (SBA) Car Transfer (QC): 4 (SBA) Does the Patient Walk: Yes Distance: 50' Walk 10 feet (QC): 4 (SBA) Walk 10ft-Uneven Surface(QC): 4 (CGA) Walk 50ft with 2 Turns (QC): 4 (SBA) Walk 150 ft (QC): 88 Gait Assistive Device: FWW Does the Pt use WC or Scooter?: Yes Distance: 300' Wheel 50 feet with 2 turns (QC: 6 # of Steps: 1 1 Step (curb) (QC): 3 PT Plan Treatment/Plan Treatment Plan: Continue Plan of Care Treatment Plan: Bed Mobility, Concurrent Therapy, Education, Functional Activity Arabella, Functional Strength, Group Therapy, Gait, Safety, Therapeutic Exercise, Transfers Treatment Duration: Apr 13, 2019 Frequency: At least 5 of 7 days/Wk (IRF) Estimated Hrs Per Day: 1.5 hours per day Patient and/or Family Agrees t: Yes Safety Risks/Education Patient Education: Gait Training, Transfer Techniques, Correct Positioning, W/C Management, Disease Process, Safety Issues Teaching Recipient: Patient Teaching Methods: Demonstration, Discussion Response to Teaching: Verbalize Understanding, Return Demonstration, Reinforcement Needed Time/GCodes Time In: 1015 Time Out: 1100 Total Billed Treatment Time: 45 Total Billed Treatment 1,GT20m,WC 10m,FA15m KEVAN SOUZA MARKETING CAMPAIGN ANALYST Apr 18, 2019 11:22 POS
--- NOTE | 2019-04-18 14:48 | Therapy Group Daily Note ---
Therapy Daily Group Note Patient Education Topic Other List Below (brain and pain, bed mob and TRF skills) Session Ratio (pt:therapist): 4:1 Goal of Session: Safety with Transfers Goal Met for this Session: Yes Pt Benefit of Group: F/U Use of Strategies @Home, Increased Functional Safety, Socialization Other/Notes Pt. participated in group PT OT session this date. Pt. came and went via ambulation with CGA . Pt. was pleasant and social, sharing her name and her favorite place she has traveled. Education focused on bed mobility , sup to side to sit TRFs, sit to stand TRFs, car TRFs and tub bench TRFs all demonstrated with equipment and explanation. Pts. participated, shared their experiences and asked pertinent questions. Pts participated in group exercises sharing the seated exercises they could recall and demonstrating them for others . Sit to stand was broken down and practiced by each participant. Pain management strategies were discussed as well as information derived from "explain pain" topics. Pt. to room after group, in bed with ashraf at hand, needs met Start Time: 13:00 Stop Time: 14:15 Total Billed Treatment Time: 75 Total Billed Treatment 1,GRP KEVAN SOUZA PLACEMENT INTERVIEWER Apr 18, 2019 14:48 POS
[2019-04-18 16:11] VITALS: BP 123/73
[2019-04-18] MEDS: diphenhydrAMINE 25 MG TAB (BENADRYL) PO SCH (20:39)
[2019-04-18] MEDS: ROSUVASTATIN 10 MG (CRESTOR) TABLET PO SCH (20:39)
[2019-04-19] MEDS: OMEGA 3 (FISH OIL) 1000 MG CAP PO SCH ×3 (06:25→17:53)
[2019-04-19] MEDS: predniSONE 5 MG TAB PO SCH (06:25)
[2019-04-19] MEDS: inSUlin ASPART (NovoLOG) 1 UNIT/0.01 ML (CHARGE PER UNIT) SC SCH ×4 (06:25→21:24)
[2019-04-19 06:30] VITALS: BP 117/9
[2019-04-19] MEDS: RT-ALBUTEROL/IPRATROPIUM 3 ML (DUONEB) VIAL INH SCH ×2 (07:57→19:27)
[2019-04-19] MEDS: RT-ADVAIR HFA 115/21 MCG PER PUFF IH SCH ×2 (07:58→19:27)
[2019-04-19 08:48] VITALS: BP 121/72
[2019-04-19] MEDS: RANOLAZINE ER 500 MG TAB (RANEXA) PO SCH ×2 (08:48→20:19)
[2019-04-19] MEDS: LOSARTAN 25 MG (COZAAR) TAB PO SCH (08:48)
[2019-04-19] MEDS: ASPIRIN E.C. 81 MG (ECOTRIN) TAB PO SCH (08:48)
[2019-04-19] MEDS: PANTOPRAZOLE 40 MG (PROTONIX) TAB PO SCH (08:48)
[2019-04-19] MEDS: FUROSEMIDE 20 MG (LASIX) TAB PO SCH (08:49)
[2019-04-19] MEDS: VITAMIN D3 1,000 UNITS (CHOLECALCIFEROL) TABLET PO SCH (08:49)
[2019-04-19] MEDS: SPIRONOLACTONE 25 MG (ALDACTONE) TAB PO SCH (08:49)
[2019-04-19] MEDS: amLODIPine 5 MG (NORVASC) TAB PO SCH (08:49)
[2019-04-19] MEDS: SENNA W/DOCUSATE (SENOKOT S) TABLET PO SCH ×2 (08:55→21:24)
--- NOTE | 2019-04-19 09:52 | Occupational Ther Daily Note ---
OT Current Status-Daily Note Subjective Pt seen in bed, wrapped in blankets. Pt states she has not had breakfast yet. Pt states no pain on this date without activity, agreeable to OT tx session. Mental Status/Objective Patient Orientation: Normal For Age ADL-Treatment Therapy Code Descriptions/Definitions Functional [place] Measure: 0=Not Assessed/NA 4=Minimal Assistance 1=Total Assistance 5=Supervision or Setup 2=Maximal Assistance 6=Modified [place] 3=Moderate Assistance 7=Complete IndependenceSCALE: Activities may be completed with or without assistive devices. 4-Tpmytjesne-sryislj completes the activity by him/herself with no assistance from a helper. 5-Set-up or Clean-up Assistance-helper sets up or cleans up; patient completes activity. [place] assists only prior to or following the activity. 4-Supervision or Touching Assistance-helper provides verbal cues and/or touching/steadying and/or contact guard assistance as patient completes acti vity. Assistance may be provided throughout the activity or intermittently. 3-Partial/Moderate Assistance-helper does LESS THAN HALF the effort. [place] lifts, holds or supports trunk or limbs, but provides less than half the effort. 2-Substantial/Maximal Assistance-helper does MORE THAN HALF the effort. [place] lifts or holds trunk or limbs and provides more than half the effort. 3-Ewtrxdqpc-lzztdg does ALL the effort. Patient does none of the effort to complete the activity. Or, the assistance of 2 or more helpers is required for the patient to complete the activity. If activity was not attempted, code reason: 7-Patient Refused. 9-Not Applicable-not attempted and the patient did not perform the activity before the current illness, exacerbation or injury. 10-Not Attempted due to Environmental Limitations-(lack of equipment, weather restraints, etc.). 88-Not Attempted due to Medical Conditions or Safety Concerns. Eating (QC): 6 Oral Hygiene (QC): 6 (completes in wc) Upper Body Dressing (QC): 5 (s/u) Lower Body Dressing (QC): 4 (SBA in stance) Toileting Hygiene (QC): 6 Toilet Transfer (QC): 4 (SBA) Other Treatment Pt completes ADLs in room, pt states she would like to change underwear on toilet- increased planning and sequencing. Pt completes transfers with SBA at this time. pt stands at sink ~55 seconds, leaning on forearms on sink. Pt requires rest in w/c. Pt returns to recliner chair, completes 2 sets of 10 per 2 exercises pt remembers from previous sessions with nena rodriguez. Skilled cues for reminders and proper resistance levels. Pt completes eating in recliner chair while discussing diaphragmatic breathing and energy conservation tasks for carry-over at home. Pt return demonstrates diaphragmatic breathing 6x; nods and actively participates in energy conservation discussion. Pt states gathers clothing items for pt at home, as pt unable to safely from FWW or unable to reach in w/c. Pt states use of mail room clerk at home and states she rolls w/c to side of items dropped to reach with mail room clerk- demonstrates safety. Pt pushes self in w/c to therapy gym, transfers w/c to EOM with FWW with SUP. Pt completes core/ UE exercises (3 sets of 10, 2 exercises) to encourage strengthening and endurance. Pt sit to stand with SUP and walks with FWW and SBA with w/c to follow for ~40 feet before rest, returns to room by propelling w/c. Pt returns to recliner, all needs met, call light in reach. Education OT Patient Education: Correct positioning, Energy conservation, Exercise program, Home exercise program, Modified ADL techniques, Progress toward Goal/Update tx plan, Purpose of tx/functional activities Teaching Recipient: Patient Teaching Methods: Demonstration, Handout, Discussion Response to Teaching: Verbalize Understanding, Return Demonstration, Reinforcement Needed OT Short Term Goals Short Term Goals Upper Body Dressing(FIM): 4 (met) Lower Body Dressing(FIM): 4 (met) Transfers (B,C,W/C) (FIM): 5 (met) Additional Short Term Goals: 1-Demonstrate ADL Tasks, 2-Verbalize Understanding, 3-ImproveStrength/[place] 1=Demonstrate adherence to instructed precautions during ADL tasks. 2=Patient will verbalize/demonstrate understanding of assistive devices/modifica tions for ADL. 3=Patient will improve strength/tolerance for activity to enable patient to perform ADL's. OT Assisted Goals [place] Operator Goals Eating (QC): 6 (met) Oral Hygiene (QC): 6 (met) Shower/Bathe Self (QC): 4 Upper Body Dressing (QC): 6 Lower Body Dressing (QC): 6 On/Off Footwear (QC): 6 (met) Toileting Hygiene (QC): 6 (met) Toilet/Commode Transfer (QC): 6 Additional Goals: 1-Demonstrate ADL Tasks, 2-Verbalize Understanding, 3- ImproveStrength/Arabella 1=Demonstrate adherence to instructed precautions during ADL tasks. 2=Patient will verbalize/demonstrate understanding of assistive devices/modifications for ADL. 3=Patient will improve strength/tolerance for activity to enable patient to perform ADL's. OT Education/Plan Problem List/Assessment Assessment: Decreased Activ Tolerance, Decreased UE Strength, Impaired Funct Balance, Impaired I ADL's, Impaired Self-Care Skills Discharge Recommendations Plan/Recommendations: Continue POC Therapy Discharge Recommendati: Intermittent Supervision Equpiment Recommendations-D/C: None Treatment Plan/Plan of Care Treatment,Training & Education: Yes Patient would benefit from OT for education, treatment and training to promote independence in ADL's, mobility, safety and/or upper extremity function for ADL's. Plan of Care: ADL Retraining, Caregiver Training, Concurrent Therapy, Functional Mobility, Group Exercise/Act as Ind, UE Funct Exercise/Act Treatment Duration: Apr 26, 2019 Frequency: At least 5 of 7 days/Wk (IRF) Estimated Hrs Per Day: 1.5 hours per day Agreement: Yes Rehab Potential: Fair Time/GCodes Start Time: 08:00 Stop Time: 09:30 Total Time Billed (hr/min): 90 Billed Treatment Time 1, ADL 2 (30), FA 2(30), EX 2(30)= 90 PREMA RODRIGUEZ OTR Apr 19, 2019 09:52 POS
[2019-04-19] MEDS: guaiFENesin/DM (ROBITUSSIN DM) 10 ML UDC PO PRN ×3 (09:54→20:19)
--- NOTE | 2019-04-19 12:03 | PM&R Progress Note ---
Subjective HPI/CC On Admission Date Seen by Provider: Apr 19, 2019 Time Seen by Provider: 07:30 Chief complaint: Fall with subsequent debility. HPI: This is a 78[address] Clay who has a PMH of CAD, DM, HTN, and chronic back pain who presented to the ER due to falls and weakness found to have a UTI, and had suffered a fall at home which resulted in severe back pain, unable to be managed at home after she had laid on the bathroom floor for 1.5 hours before her found her. She was accessed in the ER, admitted and placed on broad spectrum antibiotics of Rocephin, supportive care and consulted PT and OT who evaluated her to be in need of strengthening in order to ultimately get back to baseline of prior level of functioning and return home. Her prior level of functioning includes ambulation with a walker and she lives at home with her of 58 years. 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 At this current time we did talk about her Hydrocodone that she takes on a regular basis, and I have reviewed urine cultures and blood cultures, so specific bacteria that will need to have continued antibiotic treatment for so those will be discontinued in addition IV fluids will be discontinued since she is consuming adequate oral intake. Subjective/Events-last exam Chest X-ray is negative. DC Novolog since her blood sugars are low. Robitussin is helping the cough. Dharmesh discussed at time of discharge tomorrow. Nebulizer treatments twice daily are helping her also. Conferred with RN Reviewed therapy notes Checked meds and labs Review of Systems Pulmonary: Cough Objective Exam Vital Signs Vital Signs Date Time Temp Pulse Resp B/P (MAP) Pulse Ox O2 Delivery O2 Flow Rate FiO2 04/19/19 19:24 92 Room Air 04/19/19 18:24 37.3 69 18 128/68 (88) 04/17/19 23:03 3.00 Capillary Refill : Less Than 3 Seconds General Appearance: No Apparent Distress, WD/WN, Chronically ill, Obese HEENT: PERRL/EOMI, Normal ENT Inspection, Pharynx Normal, Moist Mucous Membranes Neck: Full Range of Motion, Normal Inspection, Non Tender, Supple Respiratory: Chest Non Tender, Normal Breath Sounds, No Accessory Muscle Use, No Respiratory Distress, Wheezing (upper airway) Cardiovascular: Regular Rate, Rhythm, No Edema, No Gallop, No JVD, No Murmur Gastrointestinal: Normal Bowel Sounds, No Organomegaly, No Pulsatile Mass, Non Tender, Soft Back: Normal Inspection, No CVA Tenderness, No Vertebral Tenderness Extremity: Normal Capillary Refill, Normal Inspection, Normal Range of Motion, Non Tender, No Calf Tenderness, No Pedal Edema Neurologic/Psychiatric: Alert, Oriented x3, No Motor/Sensory Deficits (generalized weakness lower extremities), Normal Mood/Affect Skin: Normal Color, Warm/Dry Lymphatic: No Adenopathy Results/Procedures Lab Patient resulted labs reviewed. FIM Transfers Therapy Code Descriptions/Definitions Functional [place] Measure: 0=Not Assessed/NA 4=Minimal Assistance 1=Total Assistance 5=Supervision or Setup 2=Maximal Assistance 6=Modified [place] 3=Moderate Assistance 7=Complete IndependenceSCALE: Activities may be completed with or without assistive devices. 6-Fjxyyprsks-fzljeam completes the activity by him/herself with no assistance from a helper. 5-Set-up or Clean-up Assistance-helper sets up or cleans up; patient completes activity. [place] assists only prior to or following the activity. 4-Supervision or Touching Assistance-helper provides verbal cues and/or touching/steadying and/or contact guard assistance as patient completes activity. Assistance may be provided throughout the activity or intermittently. 3-Partial/Moderate Assistance-helper does LESS THAN HALF the effort. [place] lifts, holds or supports trunk or limbs, but provides less than half the effort. 2-Substantial/Maximal Assistance-helper does MORE THAN HALF the effort. [place] lifts or holds trunk or limbs and provides more than half the effort. 9-Jpzczxtve-dkmmik does ALL the effort. Patient does none of the effort to complete the activity. Or, the assistance of 2 or more helpers is required for the patient to complete the activity. If activity was not attempted, code reason: 7-Patient Refused. 9-Not Applicable-not attempted and the patient did not perform the activity before the current illness, exacerbation or injury. 10-Not Attempted due to Environmental Limitations-(lack of equipment, weather restraints, etc.). 88-Not Attempted due to Medical Conditions or Safety Concerns. Transfers (B, C, W/C) (FIM): 5 Roll Left to Right (QC): 5 Sit to Lying (QC): 5 Sit to Stand (QC): 5 Chair/Kbv-qq-Gecns Xfer(QC): 5 Bed to/from Chair: 5 Car Transfer (QC): 3 (George only for L LE into car.) Gait Training Does the Patient Walk?: Yes Gait (FIM): 4 Distance (FIM): 1=up to 49 ft Distance: 4 ft fwd and bkwd, 10 ft fwd Walk 10 feet (QC): 4 Walk 50 ft with 2 Turns(QC): 88 Walk 150 ft (QC): 88 Walking 10ft/uneven surface-QC: 88 Gait Persons Needed: 1 Gait Assistive Device: FWW Wheelchair Training Does the Pt Use a Wheelchair?: Yes Wheelchair Distance: 3=150 ft Distance: 120 Wheel 50 ft with 2 turns (QC): 6 Wheel 150 ft (QC): 6 Type of Wheelchair: Manual Stair Training 1 Step (curb) (QC): 88 4 Steps (QC): 88 12 Steps (QC): 88 Balance Picking up an Object (QC): 88 ADL-Treatment Eating (QC): 6 Oral Hygiene (QC): 6 (completes in wc) Shower/Bathe Self (QC): 3 (SBA in stance for bottom/ jose alejandro hygiene. Min A for back washing ( performs for pt. at home)) Upper Body Dressing (QC): 5 (s/u) Lower Body Dressing (QC): 4 (SBA in stance) On/Off Footwear (QC): 4 (SBA due to decreased balance. Pt brings foot across lap, attempts multiple times prior to mastery.) Toileting Hygiene (QC): 6 Toilet Transfer (QC): 4 (SBA) Assessment/Plan Assessment and Plan Assess & Plan/Chief Complaint Assessment: Fall with debility DM HTN CAD s/p UTI Chronic back pain Wheezing with cough Plan: Monitor BP and BS Home meds Pain meds IRF protocol Nebs Normal CXR ICS (1) Debility (2) Urinary tract infection Status: Acute (3) IDDM (insulin dependent diabetes mellitus) Status: Acute (4) CAD (coronary artery disease) Status: Chronic (5) Vertigo Status: Acute (6) HTN (hypertension) Status: Acute (7) Left leg weakness Status: Acute CHELY ESPARZA DO Apr 19, 2019 12:03 POS
--- NOTE | 2019-04-19 12:08 | Physical Therapy Daily Note ---
PT Daily Note-Current Subjective Pt sitting in recliner upon arrival. Pt agrees to PT. Pain Location: No Pain Reported Mental Status Patient Orientation: Person, Place, Time, Situation Transfers SCALE: Activities may be completed with or without assistive devices. 5-Uqbcibcrdy-gtxfjwd completes the activity by him/herself with no assistance from a helper. 5-Set-up or Clean-up Assistance-helper sets up or cleans up; patient completes activity. [place] assists only prior to or following the activity. 4-Supervision or Touching Assistance-helper provides verbal cues and/or touching/steadying and/or contact guard assistance as patient completes activity. Assistance may be provided throughout the activity or intermittently. 3-Partial/Moderate Assistance-helper does LESS THAN HALF the effort. [place] lifts, holds or supports trunk or limbs, but provides less than half the effort. 2-Substantial/Maximal Assistance-helper does MORE THAN HALF the effort. [place] lifts or holds trunk or limbs and provides more than half the effort. 7-Ezrkjogky-xuruwl does ALL the effort. Patient does none of the effort to complete the activity. Or, the assistance of 2 or more helpers is required for the patient to complete the activity. If activity was not attempted, code reason: 7-Patient Refused. 9-Not Applicable-not attempted and the patient did not perform the activity bef ore the current illness, exacerbation or injury. 10-Not Attempted due to Environmental Limitations-(lack of equipment, weather r estraints, etc.). 88-Not Attempted due to Medical Conditions or Safety Concerns. Sit to Stand (QC): 5 Weight Bearing Right Lower Extremity: Right Full Weight Bearing Left Lower Extremity: Left Full Weight Bearing Gait Training Does the Patient Walk?: Yes Gait: 5 Distance: 50' x2 Walk 10 feet (QC): 5 Walk 50 ft with 2 Turns(QC): 5 Gait Persons Needed: 1 Gait Assistive Device: FWW Pt is improving with distance of ambulation although when she fatigues she "melts" and quickly has to sit in W/C that follows pt while ambulating. Exercises Seated Therapy Exercises: Ankle pumps, Long arc quads, Hip flexion, Kicking act ivity Seated Reps: 20 NuStep Minutes: 8 NuStep Workload: 4 Treatments Pt transfers from recliner to standing then ambulates in hallway until needing to rest in W/C. Pt then ambulates to NuStep in Therapy Gym. Pt uses NuStep for 8m at WL 4. Pt completes Seated Ex then takes RB before walking back to room. Pt rests in recliner. Sp, pt and MANAGER CONTENT discuss pt progress and pt indicates would like to DC on in a couple of days. MANAGER CONTENT advised will notify SW of DC request. Pt resting in recliner with all needs met, call light in hand. Assessment Current Status: Good Progress Pt has improved with strength and activity tolerance bruce. with walking. Pt is back to walking near what she was previous to hospital stay. Pt and Sp feel they can manage at home. PT Short Term Goals Short Term Goals Time Frame: Apr 19, 2019 Gait Distance Comment: 10' Gait Assistive Device: FWW (CGA) Wheelchair Distance: 120 PT Clinical Services Assistant Goals [facility] Goals PT Clinical Services Assistant Goals Time Frame: May 03, 2019 Sit to Lying (QC): 4 (SBA) Lying-Sitting on Side/Bed(QC): 4 (SBA) Sit to Stand (QC): 4 (SBA) Roll Left to Right (QC): 6 Chair/Dnl-mh-Sirtp Xfer(QC): 4 (SBA) Car Transfer (QC): 4 (SBA) Does the Patient Walk: Yes Distance: 50' Walk 10 feet (QC): 4 (SBA) Walk 10ft-Uneven Surface(QC): 4 (CGA) Walk 50ft with 2 Turns (QC): 4 (SBA) Walk 150 ft (QC): 88 Gait Assistive Device: FWW Does the Pt use WC or Scooter?: Yes Distance: 300' Wheel 50 feet with 2 turns (QC: 6 # of Steps: 1 1 Step (curb) (QC): 3 PT Plan Problem List Problem List: Activity Tolerance, Gait Treatment/Plan Treatment Plan: Continue Plan of Care Treatment Plan: Bed Mobility, Concurrent Therapy, Education, Functional Activity [place], Functional Strength, Group Therapy, Gait, Safety, Therapeutic Exercise, Transfers Treatment Duration: Apr 13, 2019 Frequency: At least 5 of 7 days/Wk (IRF) Estimated Hrs Per Day: 1.5 hours per day Patient and/or Family Agrees t: Yes Safety Risks/Education Patient Education: Gait Training, Transfer Techniques, Correct Positioning, W/C Management, Safety Issues Teaching Recipient: Patient Teaching Methods: Discussion Response to Teaching: Verbalize Understanding Time/GCodes Time In: 1045 Time Out: 1145 Total Billed Treatment Time: 60 Total Billed Treatment 1, GT (20m), EX x2 (25m) & FA (15m) GEOVANNA MENDOZA MANAGER CONTENT Apr 19, 2019 12:08 POS
--- NOTE | 2019-04-19 14:48 | Physical Therapy Daily Note ---
PT Daily Note-Current Subjective Pt asleep Supine in bed upon arrival. Pt agrees to PT. Pain Numeric Pain Scale: 8 Location: Right Location Body Site: Knee Pain Description: Ache, Tightness Mental Status Patient Orientation: Person, Place, Time, Situation Transfers SCALE: Activities may be completed with or without assistive devices. 3-Ccxiaqtzuo-unhlnvb completes the activity by him/herself with no assistance f rom a helper. 5-Set-up or Clean-up Assistance-helper sets up or cleans up; patient completes activity. [place] assists only prior to or following the activity. 4-Supervision or Touching Assistance-helper provides verbal cues and/or touching/steadying and/or contact guard assistance as patient completes activity. Assistance may be provided throughout the activity or intermittently. 3-Partial/Moderate Assistance-helper does LESS THAN HALF the effort. [place] lifts, holds or supports trunk or limbs, but provides less than half the effort. 2-Substantial/Maximal Assistance-helper does MORE THAN HALF the effort. [place] lifts or holds trunk or limbs and provides more than half the effort. 7-Jmctgdeyl-cvpsov does ALL the effort. Patient does none of the effort to complete the activity. Or, the assistance of 2 or more helpers is required for the patient to complete the activity. If activity was not attempted, code reason: 7-Patient Refused. 9-Not Applicable-not attempted and the patient did not perform the activity before the current illness, exacerbation or injury. 10-Not Attempted due to Environmental Limitations-(lack of equipment, weather restraints, etc.). 88-Not Attempted due to Medical Conditions or Safety Concerns. Weight Bearing Right Lower Extremity: Right Full Weight Bearing Left Lower Extremity: Left Full Weight Bearing Exercises Supine Ex: Ankle pumps, Quad Set, Heel Slides Supine Reps: 20 Treatments Pt completes Supine Ex in bed before needing to use restroom. Pt transfers from bed to standing, ambulates to restroom then returns to bed at end of Rx. Pt has all needs met, call light in hand. Assessment Current Status: Good Progress Pt is gaining strength and independence of tasks during Rx, still struggles with distance of ambulation. PT Short Term Goals Short Term Goals Time Frame: Apr 19, 2019 Gait Distance Comment: 10' Gait Assistive Device: FWW (CGA) Wheelchair Distance: 120 PT Shelter Goals Shelter Goals PT Set Making Machine Operator Goals Time Frame: May 03, 2019 Sit to Lying (QC): 4 (SBA) Lying-Sitting on Side/Bed(QC): 4 (SBA) Sit to Stand (QC): 4 (SBA) Roll Left to Right (QC): 6 Chair/Dre-bp-Bwjzj Xfer(QC): 4 (SBA) Car Transfer (QC): 4 (SBA) Does the Patient Walk: Yes Distance: 50' Walk 10 feet (QC): 4 (SBA) Walk 10ft-Uneven Surface(QC): 4 (CGA) Walk 50ft with 2 Turns (QC): 4 (SBA) Walk 150 ft (QC): 88 Gait Assistive Device: FWW Does the Pt use WC or Scooter?: Yes Distance: 300' Wheel 50 feet with 2 turns (QC: 6 # of Steps: 1 1 Step (curb) (QC): 3 PT Plan Problem List Problem List: Activity Tolerance Treatment/Plan Treatment Plan: Continue Plan of Care Treatment Plan: Bed Mobility, Concurrent Therapy, Education, Functional Activity Arabella, Functional Strength, Group Therapy, Gait, Safety, Therapeutic Exercise, Transfers Treatment Duration: Apr 13, 2019 Frequency: At least 5 of 7 days/Wk (IRF) Estimated Hrs Per Day: 1.5 hours per day Patient and/or Family Agrees t: Yes Safety Risks/Education Patient Education: Gait Training, Transfer Techniques, Correct Positioning, Safety Issues Teaching Recipient: Patient Teaching Methods: Discussion Response to Teaching: Verbalize Understanding Time/GCodes Time In: 1430 Time Out: 1500 Total Billed Treatment Time: 30 Total Billed Treatment 1, EX (15m) & FA (15m) GEOVANNA MENDOZA PTA Apr 19, 2019 14:47 POS
[2019-04-19 18:24] VITALS: BP 128/68
--- NOTE | 2019-04-19 19:37 | Progress Note ---
Subjective Date Seen by a Provider: Apr 19, 2019 Time Seen by a Provider: 19:37 Objective Exam Last Set of Vital Signs Vital Signs Date Time Temp Pulse Resp B/P (MAP) Pulse Ox O2 Delivery O2 Flow Rate FiO2 04/19/19 19:24 92 Room Air 04/19/19 18:24 37.3 69 18 128/68 (88) 04/17/19 23:03 3.00 Capillary Refill : Less Than 3 Seconds I&O Intake and Output 04/19/19 00:00 Intake Total 2400 ml Balance 2400 ml Intake Oral 2400 ml # Voids 9 # Bowel Movements 1 Results Lab Laboratory Tests 04/18/19 20:37: Glucometer 122H 04/19/19 06:20: Glucometer 75 04/19/19 11:01: Glucometer 115H 04/19/19 15:49: Glucometer 100 Assessment/Plan Assessment/Plan Assess & Plan/Chief Complaint SPINAL STENOSIS BACK PAIN HYPERTENSION WITH KNOWN CAD HYPERLIPIDEMIA DIABETES MELLITUS PERIPHERAL NEUROPATHY CHRONIC EDEMA SPINAL STENOSIS WITH CHRONIC BACK PAIN - PLANNING ON THERAPY FOR STRENGTHENING PRIOR TO DISCHARGE TO HOME - PT IS NOT A GOOD SURGICAL CANDIDATE PER NEUROSURGEON AND THEY ARE TRYING TO AVOID ANY OPERATIVE INTERVENTION BENIGNO WOULD NEED AN EXTENSIVE PROCEDURE SHOULD SHE GO TO THE [facility]R. HYPERTENSION WITH CAD - RESUMED HOME REGIMEN, MONITOR PRESSURE CLOSELY AND WILL ADJUST MEDICATIONS SHOULD THAT BE NEEDED. - CONTINUE RANEXA HYPERLIPIDEMIA - ON CRESTOR OUTPATIENT, CONTINUE WITH STATIN THERAPY DIABETES MELLITUS - ON INSULIN OUTPATIENT - ADJUST MEDICATION TO PREVENT LOW BLOOD GLUCOSE READINGS. SHE HAS REQUIRED LESS MEDICATION SINCE SHE HAS BEEN IN THE HOSPITAL. PERIPHERAL NEUROPATHY - MULTIFACTORIAL - DUE TO DM AND SPINAL STENOSIS - SUPPORTIVE CARE CHRONIC EDEMA - PRN KARY MUNOZ MD Apr 19, 2019 19:37 POS
--- NOTE | 2019-04-19 19:40 | NUR ---
Dr. Clay here and new orders received for Influenza nasal swabs.
[2019-04-19] MEDS ORDERED: cefTRIAXone FOR IV USE 1,000 MG in WATER (STERILE) FOR INJECTION 10 ML IV SCH (19:45)
--- NOTE | 2019-04-19 19:47 | NUR ---
Nasal swabs sent to lab
--- NOTE | 2019-04-19 20:14 | NUR ---
Saline lock started in right forearm x1 stick and IV Rocephin given at this time.
--- NOTE | 2019-04-19 20:17 | NUR ---
Lab phoned and pt positive for Influenza B. Pt put in Droplet isolation and DR. Clay notified. New orders received for Tamilflu 75mg po bid.
[2019-04-19] MEDS: ROSUVASTATIN 10 MG (CRESTOR) TABLET PO SCH (20:18)
[2019-04-19] MEDS: diphenhydrAMINE 25 MG TAB (BENADRYL) PO SCH (20:19)
[2019-04-19] MEDS: HYDROcodone/APAP 10 MG/325 MG (LORTAB) TAB PO PRN (21:22)
[2019-04-19] MEDS ORDERED: OSELTAMIVIR 75 MG (TAMIFLU) CAPSULE ONE (21:27)
[2019-04-19] MEDS: OSELTAMIVIR 75 MG (TAMIFLU) CAPSULE PO SCH (21:36)
[2019-04-20 06:00] VITALS: BP 126/68
[2019-04-20] MEDS: inSUlin ASPART (NovoLOG) 1 UNIT/0.01 ML (CHARGE PER UNIT) SC SCH ×4 (06:07→20:48)
[2019-04-20] MEDS: OMEGA 3 (FISH OIL) 1000 MG CAP PO SCH ×3 (06:24→17:19)
[2019-04-20] MEDS: predniSONE 5 MG TAB PO SCH (06:24)
[2019-04-20] MEDS ORDERED: CATHETER FLUSH 10 ML SYR IV PRN (06:30)
[2019-04-20] MEDS: RT-ALBUTEROL/IPRATROPIUM 3 ML (DUONEB) VIAL INH SCH ×2 (06:35→20:35)
[2019-04-20] MEDS: SENNA W/DOCUSATE (SENOKOT S) TABLET PO SCH ×2 (10:09→20:47)
[2019-04-20] MEDS: OSELTAMIVIR 75 MG (TAMIFLU) CAPSULE PO SCH ×2 (10:09→20:39)
[2019-04-20] MEDS: FUROSEMIDE 20 MG (LASIX) TAB PO SCH (10:09)
[2019-04-20] MEDS: RANOLAZINE ER 500 MG TAB (RANEXA) PO SCH ×2 (10:10→20:38)
[2019-04-20] MEDS: SPIRONOLACTONE 25 MG (ALDACTONE) TAB PO SCH (10:10)
[2019-04-20] MEDS: amLODIPine 5 MG (NORVASC) TAB PO SCH (10:10)
[2019-04-20] MEDS: PANTOPRAZOLE 40 MG (PROTONIX) TAB PO SCH (10:10)
[2019-04-20] MEDS: ASPIRIN E.C. 81 MG (ECOTRIN) TAB PO SCH (10:10)
[2019-04-20] MEDS: LOSARTAN 25 MG (COZAAR) TAB PO SCH (10:10)
--- NOTE | 2019-04-20 10:22 | Occupational Ther Daily Note ---
OT Current Status-Daily Note Subjective Pt on droplet precautions. Pt seen in bed, no c/o pain but weakness and nausea. Pt agreeable to OT tx session, states need for bathroom. Mental Status/Objective Patient Orientation: Normal For Age ADL-Treatment Therapy Code Descriptions/Definitions Functional Devol Measure: 0=Not Assessed/NA 4=Minimal Assistance 1=Total Assistance 5=Supervision or Setup 2=Maximal Assistance 6=Modified Devol 3=Moderate Assistance 7=Complete IndependenceSCALE: Activities may be completed with or without assistive devices. 8-Ntcgfwxibi-agpifgn completes the activity by him/herself with no assistance from a helper. 5-Set-up or Clean-up Assistance-helper sets up or cleans up; patient completes activity. [place] assists only prior to or following the activity. 4-Supervision or Touching Assistance-helper provides verbal cues and/or touching/steadying and/or contact guard assistance as patient completes activity. Assistance may be provided throughout the activity or intermittently. 3-Partial/Moderate Assistance-helper does LESS THAN HALF the effort. [place] lifts, holds or supports trunk or limbs, but provides less than half the effort. 2-Substantial/Maximal Assistance-helper does MORE THAN HALF the effort. [place] lifts or holds trunk or limbs and provides more than half the effort. 2-Uxsooxomf-tqsydj does ALL the effort. Patient does none of the effort to complete the activity. Or, the assistance of 2 or more helpers is required for the patient to complete the activity. If activity was not attempted, code reason: 7-Patient Refused. 9-Not Applicable-not attempted and the patient did not perform the activity before the current illness, exacerbation or injury. 10-Not Attempted due to Environmental Limitations-(lack of equipment, weather restraints, etc.). 88-Not Attempted due to Medical Conditions or Safety Concerns. Eating (QC): 6 Oral Hygiene (QC): 6 (completes at sink) Shower/Bathe Self (QC): 3 (sponge bath on this date. Assist with bottom hygiene in standing, pt able to complete all other areas while seated in w/c.) Upper Body Dressing (QC): 5 (s/u) Lower Body Dressing (QC): 4 (CGA in stance) Toileting Hygiene (QC): 5 (SBA) Toilet Transfer (QC): 5 (SBA) Other Treatment Pt completes ADLs in room, no c/o nausea during activities. Pt completes with increased time while in w/c. Pt returns to chair, transfers with SBA. Pt completes 4 theraband exercises from memory with minimal cues for positioning (1 set of 10 per UE), completes 4 new theraband exercises with max cues for positioning; pt able to regulate correct tension without cueing on this date. Pt's exercises focus on back, external rotation, biceps, triceps, sup/ pronati on, wrist flexion, and deltoids. Pt left in recliner chair with call light in reach, all needs met. Education OT Patient Education: Energy conservation, Exercise program, Home exercise program, Modified ADL techniques, Rehab process, Safety issues Teaching Recipient: Patient Teaching Methods: Demonstration, Discussion Response to Teaching: Verbalize Understanding, Return Demonstration, Reinforcement Needed OT Short Term Goals Short Term Goals Upper Body Dressing(FIM): 4 (met) Lower Body Dressing(FIM): 4 (met) Transfers (B,C,W/C) (FIM): 5 (met) Additional Short Term Goals: 1-Demonstrate ADL Tasks, 2-Verbalize Understanding, 3-ImproveStrength/Arabella 1=Demonstrate adherence to instructed precautions during ADL tasks. 2=Patient will verbalize/demonstrate understanding of assistive devices/modifications for ADL. 3=Patient will improve strength/tolerance for activity to enable patient to perform ADL's. OT Usp Goals Usp Goals Eating (QC): 6 (met) Oral Hygiene (QC): 6 (met) Shower/Bathe Self (QC): 4 Upper Body Dressing (QC): 6 Lower Body Dressing (QC): 6 On/Off Footwear (QC): 6 (met) Toileting Hygiene (QC): 6 (met) Toilet/Commode Transfer (QC): 6 Additional Goals: 1-Demonstrate ADL Tasks, 2-Verbalize Understanding, 3- ImproveStrength/Arabella 1=Demonstrate adherence to instructed precautions during ADL tasks. 2=Patient will verbalize/demonstrate understanding of assistive devices/modifications for ADL. 3=Patient will improve strength/tolerance for activity to enable patient to perform ADL's. OT Education/Plan Problem List/Assessment Assessment: Decreased Activ Tolerance, Decreased UE Strength, Impaired I ADL's, Impaired Self-Care Skills Discharge Recommendations Plan/Recommendations: Continue POC Therapy Discharge Recommendati: Post Acute OT Treatment Plan/Plan of Care Treatment,Training & Education: Yes Patient would benefit from OT for education, treatment and training to promote independence in ADL's, mobility, safety and/or upper extremity function for ADL's. Plan of Care: ADL Retraining, Caregiver Training, Concurrent Therapy, Functional Mobility, Group Exercise/Act as Ind, UE Funct Exercise/Act Treatment Duration: Apr 26, 2019 Frequency: At least 5 of 7 days/Wk (IRF) Estimated Hrs Per Day: 1.5 hours per day Agreement: Yes Rehab Potential: Fair Time/GCodes Start Time: 09:10 Stop Time: 10:10 Total Time Billed (hr/min): 60 Billed Treatment Time 1, ADL 3 (45), EX (15)= 60 PREMA RODRIGUEZ OTR Apr 20, 2019 10:22 POS
--- NOTE | 2019-04-20 12:03 | Physical Therapy Daily Note ---
PT Daily Note-Current Subjective Pt. states she really feels more comfortable to stay in her room for Rx. States she is feeling a bit better, not as shaky and making some progress, no fever etc Pain Location: No Pain Reported Mental Status Patient Orientation: Normal For Age Transfers SCALE: Activities may be completed with or without assistive devices. 6-Repiqsrvpm-inilvxt completes the activity by him/herself with no assistance from a helper. 5-Set-up or Clean-up Assistance-helper sets up or cleans up; patient completes activity. [place] assists only prior to or following the activity. 4-Supervision or Touching Assistance-helper provides verbal cues and/or touching/steadying and/or contact guard assistance as patient completes ac tivity. Assistance may be provided throughout the activity or intermittently. 3-Partial/Moderate Assistance-helper does LESS THAN HALF the effort. [place] lifts, holds or supports trunk or limbs, but provides less than half the effort. 2-Substantial/Maximal Assistance-helper does MORE THAN HALF the effort. [place] lifts or holds trunk or limbs and provides more than half the effort. 7-Sazwytpwj-sqctsu does ALL the effort. Patient does none of the effort to complete the activity. Or, the assistance of 2 or more helpers is required for the patient to complete the activity. If activity was not attempted, code reason: 7-Patient Refused. 9-Not Applicable-not attempted and the patient did not perform the activity before the current illness, exacerbation or injury. 10-Not Attempted due to Environmental Limitations-(lack of equipment, weather restraints, etc.). 88-Not Attempted due to Medical Conditions or Safety Concerns. Transfers (B, C, W/C): 6 Roll Left to Right (QC): 6 Sit to Lying (QC): 6 Sit to Stand (QC): 6 Chair/Aiz-ez-Ypdze Xfer(QC): 6 Weight Bearing Right Lower Extremity: Right Full Weight Bearing Left Lower Extremity: Left Full Weight Bearing Gait Training Does the Patient Walk?: Yes Gait: 4 Walk 10 feet (QC): 4 Gait Persons Needed: 1 Gait Assistive Device: FWW pt. ambulates 35 ft x 3 in room turning many turns with good safe technique. no weakness or shakiness today but indicates when she wants to sit Exercises Supine Ex: LE Protocol, Ankle pumps, Quad Set, Rolling, Glut sets, Heel Slides, Short Arc Quads, Scooting, Straight leg raise, Hip abd/add Supine Reps: 12 (x2) Seated Therapy Exercises: Ankle pumps, Sit to stand, Long arc quads, Hip flexion Seated Reps: 12 (x2) Assessment Current Status: Good Progress PT Short Term Goals Short Term Goals Time Frame: Apr 19, 2019 Gait Distance Comment: 10' Gait Assistive Device: FWW (CGA) Wheelchair Distance: 120 PT Body Painter Goals Jail Goals PT Jail Goals Time Frame: May 03, 2019 Sit to Lying (QC): 4 (SBA) Lying-Sitting on Side/Bed(QC): 4 (SBA) Sit to Stand (QC): 4 (SBA) Roll Left to Right (QC): 6 Chair/Ufb-kd-Ycudj Xfer(QC): 4 (SBA) Car Transfer (QC): 4 (SBA) Does the Patient Walk: Yes Distance: 50' Walk 10 feet (QC): 4 (SBA) Walk 10ft-Uneven Surface(QC): 4 (CGA) Walk 50ft with 2 Turns (QC): 4 (SBA) Walk 150 ft (QC): 88 Gait Assistive Device: FWW Does the Pt use WC or Scooter?: Yes Distance: 300' Wheel 50 feet with 2 turns (QC: 6 # of Steps: 1 1 Step (curb) (QC): 3 PT Plan Treatment/Plan Treatment Plan: Continue Plan of Care Treatment Plan: Bed Mobility, Concurrent Therapy, Education, Functional Activity Arabella, Functional Strength, Group Therapy, Gait, Safety, Therapeutic Exercise, Transfers Treatment Duration: Apr 13, 2019 Frequency: At least 5 of 7 days/Wk (IRF) Estimated Hrs Per Day: 1.5 hours per day Patient and/or Family Agrees t: Yes Safety Risks/Education Patient Education: Gait Training, Transfer Techniques, Correct Positioning, Disease Process, Safety Issues Teaching Recipient: Patient Teaching Methods: Demonstration, Discussion Response to Teaching: Verbalize Understanding, Return Demonstration, Reinforcement Needed Time/GCodes Time In: 1100 Time Out: 1200 Total Billed Treatment Time: 60 Total Billed Treatment 1,GRP KEVAN SOUZA CIVIL ENGINEERING MANAGER Apr 20, 2019 12:03 POS
[2019-04-20] MEDS: VITAMIN D3 1,000 UNITS (CHOLECALCIFEROL) TABLET PO SCH (12:11)
--- NOTE | 2019-04-20 13:40 | Occupational Ther Daily Note ---
OT Current Status-Daily Note Subjective Pt seen in room, just transferred to bed with nursing executive. Pt states no pain, very chilled. Pt's hands/ arms shivering. Pt agreeable to OT tx session. Mental Status/Objective Patient Orientation: Normal For Age ADL-Treatment Therapy Code Descriptions/Definitions Functional [place] Measure: 0=Not Assessed/NA 4=Minimal Assistance 1=Total Assistance 5=Supervision or Setup 2=Maximal Assistance 6=Modified [place] 3=Moderate Assistance 7=Complete IndependenceSCALE: Activities may be completed with or without assistive devices. 7-Dbwxyufyza-mimreey completes the activity by him/herself with no assistance from a helper. 5-Set-up or Clean-up Assistance-helper sets up or cleans up; patient completes activity. [place] assists only prior to or following the activity. 4-Supervision or Touching Assistance-helper provides verbal cues and/or touching/steadying and/or contact guard assistance as patient completes ac tivity. Assistance may be provided throughout the activity or intermittently. 3-Partial/Moderate Assistance-helper does LESS THAN HALF the effort. [place] lifts, holds or supports trunk or limbs, but provides less than half the effort. 2-Substantial/Maximal Assistance-helper does MORE THAN HALF the effort. [place] lifts or holds trunk or limbs and provides more than half the effort. 7-Mhumvuskr-twugpe does ALL the effort. Patient does none of the effort to complete the activity. Or, the assistance of 2 or more helpers is required for the patient to complete the activity. If activity was not attempted, code reason: 7-Patient Refused. 9-Not Applicable-not attempted and the patient did not perform the activity before the current illness, exacerbation or injury. 10-Not Attempted due to Environmental Limitations-(lack of equipment, weather restraints, etc.). 88-Not Attempted due to Medical Conditions or Safety Concerns. Eating (QC): 6 Upper Body Dressing (QC): 5 (s/u for robe donning.) Other Treatment Pt completes exercises against gravity while laying supine in bed. Pt educated on internal heat source vs external, educated on the benefits of muscle movement during chilled times. Pt completes 4 UE exercises, 10 reps per exercise, then sits EOB with increased time. Pt dons robe with s/u while EOB. Pt completes cognitive multi-tasking domSterraClimb game while incorporating UE exercises EOB. Pt able to multi-task with min cues for attention, pt completes all UE/ core exercises EOB with good balance and endurance, cues for positioning in tolerable range. Pt returns to bed, call light in reach, all needs met. Education OT Patient Education: Correct positioning, Exercise program, Home exercise program, Purpose of tx/functional activities Teaching Recipient: Patient Teaching Methods: Demonstration, Discussion Response to Teaching: Verbalize Understanding, Return Demonstration OT Short Term Goals Short Term Goals Upper Body Dressing(FIM): 4 (met) Lower Body Dressing(FIM): 4 (met) Transfers (B,C,W/C) (FIM): 5 (met) Additional Short Term Goals: 1-Demonstrate ADL Tasks, 2-Verbalize Understanding, 3-ImproveStrength/Arabella 1=Demonstrate adherence to instructed precautions during ADL tasks. 2=Patient will verbalize/demonstrate understanding of assistive dev ices/modifications for ADL. 3=Patient will improve strength/tolerance for activity to enable patient to perform ADL's. OT Retirement Goals Retirement Goals Eating (QC): 6 (met) Oral Hygiene (QC): 6 (met) Shower/Bathe Self (QC): 4 Upper Body Dressing (QC): 6 Lower Body Dressing (QC): 6 On/Off Footwear (QC): 6 (met) Toileting Hygiene (QC): 6 (met) Toilet/Commode Transfer (QC): 6 Additional Goals: 1-Demonstrate ADL Tasks, 2-Verbalize Understanding, 3- ImproveStrength/Arabella 1=Demonstrate adherence to instructed precautions during ADL tasks. 2=Patient will verbalize/demonstrate understanding of assistive devices/modifications for ADL. 3=Patient will improve strength/tolerance for activity to enable patient to perform ADL's. OT Education/Plan Problem List/Assessment Assessment: Decreased Activ Tolerance, Decreased UE Strength, Impaired Funct Balance, Impaired I ADL's, Impaired Self-Care Skills Discharge Recommendations Plan/Recommendations: Continue POC Treatment Plan/Plan of Care Treatment,Training & Education: Yes Patient would benefit from OT for education, treatment and training to promote independence in ADL's, mobility, safety and/or upper extremity function for ADL's. Plan of Care: ADL Retraining, Caregiver Training, Concurrent Therapy, Functional Mobility, Group Exercise/Act as Ind, UE Funct Exercise/Act Treatment Duration: Apr 26, 2019 Frequency: At least 5 of 7 days/Wk (IRF) Estimated Hrs Per Day: 1.5 hours per day Agreement: Yes Rehab Potential: Fair Time/GCodes Start Time: 12:55 Stop Time: 13:30 Total Time Billed (hr/min): 35 Billed Treatment Time 1, EX x2 (35) PREMA RODRIGUEZ OTR Apr 20, 2019 13:40 POS
[2019-04-20] MEDS: CATHETER FLUSH 10 ML SYR IV SCH ×2 (14:26→20:52)
--- NOTE | 2019-04-20 14:31 | NUR ---
RD ASSESSMENT PMHx: CAD; HTN; DM; CA(uterine); hypercholesterolemia PT INTERACTION: Pt was awake and pleasant during nutrition follow-up. Pt states current appetite has been good since last assessment. Note pt avg PO intake is 75% x4d, per chart review. Pt states having some issues with nausea, but not vomiting since last assessment. Note pt currently on zofran PRN, per chart review. Pt states having no issues with c/d since last assessment. Note last BM was 04/18 and pt currently on bowel regimen of senna BID, colace PRN, per chart review. ABNORMAL NUTRITION-RELATED LAB VALUES: glu 125 (H); Pro 5.1 (L); alb 3.1 (L) Est. kcal needs: 9324-8431 kcal (15-20 kcal/kg) Est. Pro needs: 81-101 g Pro (0.8-1.0 g Pro/kg) PES STATEMENT: Given pt's PO intake, no nutrition diagnosis at this time (NO-1.1) INTERVENTION: Continue with current diet order of CHO 60g/m 3snack diet. From nutrition standpoint, pt is eating well and is ready for discharge. MONITOR/EVALUATE: PO Intake; Plan of Care; Hydration Status; Weight Status; Lab Values; Discharge Plans Dana Archuleta, MS, RD, LD Ext. [phone]
--- NOTE | 2019-04-20 14:46 | Physical Therapy Daily Note ---
PT Daily Note-Current Subjective Pt. in bed, agrees to Rx. Pt. wants to walk further and further and feels like she is making progress Pain Location: No Pain Reported Mental Status Patient Orientation: Normal For Age Transfers SCALE: Activities may be completed with or without assistive devices. 1-Rcjvuyelhn-qkgojpq completes the activity by him/herself with no assistance from a helper. 5-Set-up or Clean-up Assistance-helper sets up or cleans up; patient completes activity. [place] assists only prior to or following the activity. 4-Supervision or Touching Assistance-helper provides verbal cues and/or touchi ng/steadying and/or contact guard assistance as patient completes activity. Assistance may be provided throughout the activity or intermittently. 3-Partial/Moderate Assistance-helper does LESS THAN HALF the effort. [place] lifts, holds or supports trunk or limbs, but provides less than half the effort. 2-Substantial/Maximal Assistance-helper does MORE THAN HALF the effort. [place] lifts or holds trunk or limbs and provides more than half the effort. 7-Vcrahrnrq-wnggim does ALL the effort. Patient does none of the effort to complete the activity. Or, the assistance of 2 or more helpers is required for the patient to complete the activity. If activity was not attempted, code reason: 7-Patient Refused. 9-Not Applicable-not attempted and the patient did not perform the activity before the current illness, exacerbation or injury. 10-Not Attempted due to Environmental Limitations-(lack of equipment, weather restraints, etc.). 88-Not Attempted due to Medical Conditions or Safety Concerns. in out bed and chair and toilet all Mod I to SBA Weight Bearing Right Lower Extremity: Right Full Weight Bearing Left Lower Extremity: Left Full Weight Bearing Gait Training Does the Patient Walk?: Yes Gait Assistive Device: FWW pt. ambulated in room bed to door and back several times equalling 44ft x 3 , requesting to sit when she felt "legs are shaky" Exercises Supine Ex: Bridging, Ankle pumps, Quad Set, Rolling, Glut sets, Heel Slides, Scooting, Straight leg raise, Hip abd/add Supine Reps: 12 Seated Therapy Exercises: Ankle pumps, Sit to stand, Long arc quads, Hip flexion Seated Reps: 12 Treatments pt. toileted with SBA Assessment Current Status: Good Progress progressing well, increased gait dist and tolerance PT Short Term Goals Short Term Goals Time Frame: Apr 19, 2019 Gait Distance Comment: 10' Gait Assistive Device: FWW (CGA) Wheelchair Distance: 120 PT Web Content Specialist Goals [facility] Goals PT Web Content Specialist Goals Time Frame: May 03, 2019 Sit to Lying (QC): 4 (SBA) Lying-Sitting on Side/Bed(QC): 4 (SBA) Sit to Stand (QC): 4 (SBA) Roll Left to Right (QC): 6 Chair/Opm-np-Ghlar Xfer(QC): 4 (SBA) Car Transfer (QC): 4 (SBA) Does the Patient Walk: Yes Distance: 50' Walk 10 feet (QC): 4 (SBA) Walk 10ft-Uneven Surface(QC): 4 (CGA) Walk 50ft with 2 Turns (QC): 4 (SBA) Walk 150 ft (QC): 88 Gait Assistive Device: FWW Does the Pt use WC or Scooter?: Yes Distance: 300' Wheel 50 feet with 2 turns (QC: 6 # of Steps: 1 1 Step (curb) (QC): 3 PT Plan Treatment/Plan Treatment Plan: Continue Plan of Care Treatment Plan: Bed Mobility, Concurrent Therapy, Education, Functional Activity Arabella, Functional Strength, Group Therapy, Gait, Safety, Therapeutic Exercise, Transfers Treatment Duration: Apr 13, 2019 Frequency: At least 5 of 7 days/Wk (IRF) Estimated Hrs Per Day: 1.5 hours per day Patient and/or Family Agrees t: Yes Safety Risks/Education Patient Education: Gait Training, Transfer Techniques, Correct Positioning, Disease Process, Safety Issues Teaching Recipient: Patient Teaching Methods: Demonstration, Discussion Response to Teaching: Verbalize Understanding, Return Demonstration, Reinforcement Needed Time/GCodes Time In: 1415 Time Out: 1450 Total Billed Treatment Time: 35 Total Billed Treatment 1,GT20m,EX15m KEVAN SOUZA DISCOVERY MANAGER Apr 20, 2019 14:46 POS
--- NOTE | 2019-04-20 15:14 | NUR ---
Weekly Team Conference Met with patient to discuss weekly team conference. Recommendation is for discharge home with spouse on 04/22/19 with home PT. Patient is agreeable to this plan. She is very complimentary of staff and care she has received while on the inpatient rehab unit. She denies need for any equipment. Patient reports she is feeling much better, as compared to yesterday, and is ready for discharge on Thursday.
[2019-04-20 17:35] VITALS: BP 139/76
[2019-04-20] MEDS: diphenhydrAMINE 25 MG TAB (BENADRYL) PO SCH (20:38)
[2019-04-20] MEDS: ROSUVASTATIN 10 MG (CRESTOR) TABLET PO SCH (20:39)
[2019-04-20] MEDS: HYDROcodone/APAP 10 MG/325 MG (LORTAB) TAB PO PRN (20:42)
[2019-04-20] MEDS: guaiFENesin/DM (ROBITUSSIN DM) 10 ML UDC PO PRN (20:44)
[2019-04-20] MEDS: ADVAIR HFA 115/21 MCG INHALER 8 GM IH SCH (21:28)
[2019-04-21 06:04] VITALS: BP 134/69
[2019-04-21] MEDS: CATHETER FLUSH 10 ML SYR IV SCH ×3 (06:08→21:55)
[2019-04-21] MEDS: OMEGA 3 (FISH OIL) 1000 MG CAP PO SCH ×3 (06:09→17:09)
[2019-04-21] MEDS: predniSONE 5 MG TAB PO SCH (06:09)
[2019-04-21] MEDS: inSUlin ASPART (NovoLOG) 1 UNIT/0.01 ML (CHARGE PER UNIT) SC SCH ×4 (06:27→21:37)
[2019-04-21] MEDS: ADVAIR HFA 115/21 MCG INHALER 8 GM IH SCH ×2 (07:12→21:55)
[2019-04-21] MEDS: ASPIRIN E.C. 81 MG (ECOTRIN) TAB PO SCH (09:14)
[2019-04-21] MEDS: LOSARTAN 25 MG (COZAAR) TAB PO SCH (09:14)
[2019-04-21] MEDS: amLODIPine 5 MG (NORVASC) TAB PO SCH (09:14)
[2019-04-21] MEDS: PANTOPRAZOLE 40 MG (PROTONIX) TAB PO SCH (09:14)
[2019-04-21] MEDS: SPIRONOLACTONE 25 MG (ALDACTONE) TAB PO SCH (09:14)
[2019-04-21] MEDS: SENNA W/DOCUSATE (SENOKOT S) TABLET PO SCH ×2 (09:14→21:55)
[2019-04-21] MEDS: FUROSEMIDE 20 MG (LASIX) TAB PO SCH (09:14)
[2019-04-21] MEDS: RANOLAZINE ER 500 MG TAB (RANEXA) PO SCH ×2 (09:14→21:50)
[2019-04-21] MEDS: VITAMIN D3 1,000 UNITS (CHOLECALCIFEROL) TABLET PO SCH (09:14)
[2019-04-21] MEDS: OSELTAMIVIR 75 MG (TAMIFLU) CAPSULE PO SCH ×2 (09:14→21:53)
--- NOTE | 2019-04-21 10:07 | PM&R Progress Note ---
Subjective HPI/CC On Admission Date Seen by Provider: Apr 21, 2019 Time Seen by Provider: 08:30 Chief complaint: Fall with subsequent debility. HPI: This is a 78[address] Clay who has a PMH of CAD, DM, HTN, and chronic back pain who presented to the ER due to falls and weakness found to have a UTI, and had suffered a fall at home which resulted in severe back pain, unable to be managed at home after she had laid on the bathroom floor for 1.5 hours before her found her. She was accessed in the ER, admitted and placed on broad spectrum antibiotics of Rocephin, supportive care and consulted PT and OT who evaluated her to be in need of strengthening in order to ultimately get back to baseline of prior level of functioning and return home. Her prior level of functioning includes ambulation with a walker and she lives at home with her of 58 years. 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 At this current time we did talk about her Hydrocodone that she takes on a regular basis, and I have reviewed urine cultures and blood cultures, so specific bacteria that will need to have continued antibiotic treatment for so those will be discontinued in addition IV fluids will be discontinued since she is consuming adequate oral intake. Subjective/Events-last exam Acu-checkwas 79 this morning. Refusing BM treatment since she is still a little bit loose. Will discharge tomorrow. Conferred with RN Reviewed therapy notes Checked meds and labs Review of Systems General: Fatigue Musculoskeletal: back pain Objective Exam Vital Signs Vital Signs Date Time Temp Pulse Resp B/P (MAP) Pulse Ox O2 Delivery O2 Flow Rate FiO2 04/21/19 16:32 37.1 62 16 122/67 (85) 93 Room Air 04/17/19 23:03 3.00 Capillary Refill : Less Than 3 Seconds General Appearance: No Apparent Distress, WD/WN, Chronically ill, Obese HEENT: PERRL/EOMI, Normal ENT Inspection, Pharynx Normal, Moist Mucous Membranes Neck: Full Range of Motion, Normal Inspection, Non Tender, Supple Respiratory: Chest Non Tender, Normal Breath Sounds, No Accessory Muscle Use, No Respiratory Distress, Wheezing (upper airway) Cardiovascular: Regular Rate, Rhythm, No Edema, No Gallop, No JVD, No Murmur Gastrointestinal: Normal Bowel Sounds, No Organomegaly, No Pulsatile Mass, Non Tender, Soft Back: Normal Inspection, No CVA Tenderness, No Vertebral Tenderness Extremity: Normal Capillary Refill, Normal Inspection, Normal Range of Motion, Non Tender, No Calf Tenderness, No Pedal Edema Neurologic/Psychiatric: Alert, Oriented x3, No Motor/Sensory Deficits (generalized weakness lower extremities), Normal Mood/Affect Skin: Normal Color, Warm/Dry Lymphatic: No Adenopathy Results/Procedures Lab Patient resulted labs reviewed. FIM Transfers Therapy Code Descriptions/Definitions Functional [place] Measure: 0=Not Assessed/NA 4=Minimal Assistance 1=Total Assistance 5=Supervision or Setup 2=Maximal Assistance 6=Modified [place] 3=Moderate Assistance 7=Complete IndependenceSCALE: Activities may be completed with or without assistive devices. 3-Tadlynzeqf-euhzkog completes the activity by him/herself with no assistance from a helper. 5-Set-up or Clean-up Assistance-helper sets up or cleans up; patient completes activity. [place] assists only prior to or following the activity. 4-Supervision or Touching Assistance-helper provides verbal cues and/or touching/steadying and/or contact guard assistance as patient completes act ivity. Assistance may be provided throughout the activity or intermittently. 3-Partial/Moderate Assistance-helper does LESS THAN HALF the effort. [place] lifts, holds or supports trunk or limbs, but provides less than half the effort. 2-Substantial/Maximal Assistance-helper does MORE THAN HALF the effort. [place] lifts or holds trunk or limbs and provides more than half the effort. 8-Jxolbdckt-saxkng does ALL the effort. Patient does none of the effort to complete the activity. Or, the assistance of 2 or more helpers is required for the patient to complete the activity. If activity was not attempted, code reason: 7-Patient Refused. 9-Not Applicable-not attempted and the patient did not perform the activity before the current illness, exacerbation or injury. 10-Not Attempted due to Environmental Limitations-(lack of equipment, weather restraints, etc.). 88-Not Attempted due to Medical Conditions or Safety Concerns. Transfers (B, C, W/C) (FIM): 6 Roll Left to Right (QC): 6 Sit to Lying (QC): 6 Sit to Stand (QC): 6 Chair/Eqi-xn-Gilnn Xfer(QC): 6 Bed to/from Chair: 5 Car Transfer (QC): 3 ([place] only for L LE into car.) Gait Training Does the Patient Walk?: Yes Gait (FIM): 4 Distance (FIM): 1=up to 49 ft Distance: 50' x2 Walk 10 feet (QC): 4 Walk 50 ft with 2 Turns(QC): 5 Walk 150 ft (QC): 88 Walking 10ft/uneven surface-QC: 88 Gait Persons Needed: 1 Gait Assistive Device: FWW Wheelchair Training Does the Pt Use a Wheelchair?: Yes Wheelchair Distance: 3=150 ft Distance: 120 Wheel 50 ft with 2 turns (QC): 6 Wheel 150 ft (QC): 6 Type of Wheelchair: Manual Stair Training 1 Step (curb) (QC): 88 4 Steps (QC): 88 12 Steps (QC): 88 Balance Picking up an Object (QC): 88 ADL-Treatment Eating (QC): 6 Oral Hygiene (QC): 6 (completes at sink) Shower/Bathe Self (QC): 3 (sponge bath on this date. Assist with bottom hygiene in standing, pt able to complete all other areas while seated in w/c.) Upper Body Dressing (QC): 5 (s/u for robe donning.) Lower Body Dressing (QC): 4 (CGA in stance) On/Off Footwear (QC): 4 (SBA due to decreased balance. Pt brings foot across lap, attempts multiple times prior to mastery.) Toileting Hygiene (QC): 5 (SBA) Toilet Transfer (QC): 5 (SBA) Assessment/Plan Assessment and Plan Assess & Plan/Chief Complaint Assessment: Fall with debility DM HTN CAD s/p UTI Chronic back pain Wheezing with cough Plan: Monitor BP and BS Home meds Pain meds IRF protocol Nebs Normal CXR ICS DC Thursday (1) Debility (2) Urinary tract infection Status: Acute (3) IDDM (insulin dependent diabetes mellitus) Status: Acute (4) CAD (coronary artery disease) Status: Chronic (5) Vertigo Status: Acute (6) HTN (hypertension) Status: Acute (7) Left leg weakness Status: Acute CHELY ESPARZA DO Apr 21, 2019 10:07 POS
--- NOTE | 2019-04-21 11:53 | Physical Therapy Daily Note ---
PT Daily Note-Current Subjective pt in recliner pre-tx agrees to PT states her legs are tired from just finishing OT. Pt reports she has the LBP and R knee pain she has constantly that is 8/10. Appearance pt in recliner post-tx with feet elevated with tray table, call light, room phone in reach and all needs met at this time. Pt's present for duration of session. Mental Status Patient Orientation: Person, Place, Time, Situation Attachments: IV Pt dons mask for excursion out of room. Transfers SCALE: Activities may be completed with or without assistive devices. 9-Uoyvwfpwzh-cjzxlto completes the activity by him/herself with no assistance from a helper. 5-Set-up or Clean-up Assistance-helper sets up or cleans up; patient completes activity. [place] assists only prior to or following the activity. 4-Supervision or Touching Assistance-helper provides verbal cues and/or touching/steadying and/or contact guard assistance as patient completes activity. Assistance may be provided throughout the activity or intermittently. 3-Partial/Moderate Assistance-helper does LESS THAN HALF the effort. [place] lifts, holds or supports trunk or limbs, but provides less than half the effort. 2-Substantial/Maximal Assistance-helper does MORE THAN HALF the effort. [place] lifts or holds trunk or limbs and provides more than half the effort. 8-Tukheybwe-zrbtdw does ALL the effort. Patient does none of the effort to complete the activity. Or, the assistance of 2 or more helpers is required for the patient to complete the activity. If activity was not attempted, code reason: 7-Patient Refused. 9-Not Applicable-not attempted and the patient did not perform the activity before the current illness, exacerbation or injury. 10-Not Attempted due to Environmental Limitations-(lack of equipment, weather restraints, etc.). 88-Not Attempted due to Medical Conditions or Safety Concerns. Roll Left to Right (QC): 6 Sit to Lying (QC): 6 Sit to Stand (QC): 6 Chair/Nyp-jf-Qvvvu Xfer(QC): 6 Car Transfer (QC): 6 Weight Bearing Right Lower Extremity: Right Full Weight Bearing Left Lower Extremity: Left Full Weight Bearing Gait Training Distance: 64',76',40' Walk 10 feet (QC): 4 (SBA) Walk 50 ft with 2 Turns(QC): 4 (SBA) Walk 150 ft (QC): 88 (pt unable to reach 150' secondary to decreased activity anton.) Walking 10ft/uneven surface-QC: 4 (CGA) Gait Assistive Device: FWW Pt ambulates with slightly slow step through gait pattern. Pt walks with hips flexed and FWW out front of her and leans with mod pressure on walker. Wheelchair Training Does the Pt Use a Wheelchair?: Yes Wheelchair Distance: 3=150 ft Wheel 50 ft with 2 turns (QC): 6 Wheel 150 ft (QC): 6 Type of Wheelchair: Manual Pt is slow to self-propel and pt's spouse attempts to take over for pt. Stair Training Stair Training: Handrails/: uses walker #of Steps: 1 1 Step (curb) (QC): 4 (CGA) 4 Steps (QC): 7 (pt says she will attempt during afternoon session.) 12 Steps (QC): 88 Stairs: Pattern: Step to Balance Picking up an Object (QC): 3 (modA) Special Test Comments pt able to lower herself to reach object on the floor, but upon return to upright the pt leaned legs back onto mat table and went straight to sitting. Pt says she can't do the test again. Exercises NuStep Minutes: 10 NuStep Workload: 3 Treatments pt performed bed mobility training, transfer training, skilled ambulation training, functional strength/endurance training, and education this date. Assessment Current Status: Fair Progress Pt continues to ambulate until she gets "shaky" and stops immediately and must sit down and won't continue. Pt educated to stay inside of FWW instead of relying so heavily on her arms, pt says she will continue to try to work on t his. Pt is anton increased ambulation distance. Pt is able to transfer and perform bed mobility indep at this time. Pt is SBA for ambulation and curb step secondary to the immediate need for a chair when she can't walk any further. At this time pt is unsafe to ambulate alone. PT Short Term Goals Short Term Goals Time Frame: Apr 19, 2019 Gait Distance Comment: 10' Gait Assistive Device: FWW (CGA) Wheelchair Distance: 120 PT Assisted Goals Assisted Goals PT Formula Technician Goals Time Frame: May 03, 2019 Sit to Lying (QC): 4 (SBA) Lying-Sitting on Side/Bed(QC): 4 (SBA) Sit to Stand (QC): 4 (SBA) Roll Left to Right (QC): 6 Chair/Qxc-xw-Oahrp Xfer(QC): 4 (SBA) Car Transfer (QC): 4 (SBA) Does the Patient Walk: Yes Distance: 50' Walk 10 feet (QC): 4 (SBA) Walk 10ft-Uneven Surface(QC): 4 (CGA) Walk 50ft with 2 Turns (QC): 4 (SBA) Walk 150 ft (QC): 88 Gait Assistive Device: FWW Does the Pt use WC or Scooter?: Yes Distance: 300' Wheel 50 feet with 2 turns (QC: 6 # of Steps: 1 1 Step (curb) (QC): 3 PT Plan Problem List Problem List: Activity Tolerance, Functional Strength, Safety, Balance, Gait, Transfer, Bed Mobility Treatment/Plan Treatment Plan: Continue Plan of Care Treatment Plan: Bed Mobility, Concurrent Therapy, Education, Functional Activity Arabella, Functional Strength, Group Therapy, Gait, Safety, Therapeutic Exercise, Transfers Treatment Duration: Apr 13, 2019 Frequency: At least 5 of 7 days/Wk (IRF) Estimated Hrs Per Day: 1.5 hours per day Patient and/or Family Agrees t: Yes Safety Risks/Education Patient Education: Gait Training, Transfer Techniques, Steps, Correct Positioning, Safety Issues Teaching Recipient: Patient, Family Teaching Methods: Demonstration, Discussion Response to Teaching: Return Demonstration, Reinforcement Needed Time/GCodes Time In: 1100 Time Out: 1200 Total Billed Treatment Time: 60 Total Billed Treatment 1 visit FA 40' GT 20' FRANCISCA MAHONEY PT Apr 21, 2019 11:52 POS
--- NOTE | 2019-04-21 12:35 | Occupational Ther Daily Note ---
OT Current Status-Daily Note Subjective Pt seen in bed, no c/o pain. Agreeable to OT tx session. Pt's voice clear and pt demonstrates increased energy than previous date. Mental Status/Objective Patient Orientation: Normal For Age ADL-Treatment Therapy Code Descriptions/Definitions Functional [place] Measure: 0=Not Assessed/NA 4=Minimal Assistance 1=Total Assistance 5=Supervision or Setup 2=Maximal Assistance 6=Modified [place] 3=Moderate Assistance 7=Complete IndependenceSCALE: Activities may be completed with or without assistive devices. 0-Lawzcwmcji-hbregzs completes the activity by him/herself with no assistance from a helper. 5-Set-up or Clean-up Assistance-helper sets up or cleans up; patient completes activity. [place] assists only prior to or following the activity. 4-Supervision or Touching Assistance-helper provides verbal cues and/or touching/steadying and/or contact guard assistance as patient completes activity. Assistance may be provided throughout the activity or intermittently. 3-Partial/Moderate Assistance-helper does LESS THAN HALF the effort. [place] lifts, holds or supports trunk or limbs, but provides less than half the effort. 2-Substantial/Maximal Assistance-helper does MORE THAN HALF the effort. [place] lifts or holds trunk or limbs and provides more than half the effort. 8-Gczgxjfxq-josyit does ALL the effort. Patient does none of the effort to complete the activity. Or, the assistance of 2 or more helpers is required for the patient to complete the activity. If activity was not attempted, code reason: 7-Patient Refused. 9-Not Applicable-not attempted and the patient did not perform the activity before the current illness, exacerbation or injury. 10-Not Attempted due to Environmental Limitations-(lack of equipment, weather restraints, etc.). 88-Not Attempted due to Medical Conditions or Safety Concerns. Eating (QC): 6 Oral Hygiene (QC): 6 Shower/Bathe Self (QC): 4 Upper Body Dressing (QC): 6 Lower Body Dressing (QC): 6 Toileting Hygiene (QC): 6 Toilet Transfer (QC): 6 Other Treatment Pt continues on droplet precautions, completes bed mob with increased time and HOB reclined, sit to stand from raised bed to FWW with SUP, gathers clothing with FWW support from closet. Pt walks to bathroom to complete toileting routine with IND. Pt completes sponge bath in w/c with min A (for back- pt's completes at home). Pt completes dressing tasks in w/c and at FWW with IND, good standing balance at FWW. Pt and OT discuss environmental barriers within the home, pt states she does not believe she will need HH OT, pt educated on HH OT role and pt continues to deny need as pt at prior level and will continue to assist with tasks. Pt completes grooming/ oral hygiene at sink in w/c. Pt walks with FWW to recliner chair; pt reads directions for Drawn to Scale, completes standing task during turn, able to stand 20-35 seconds each time (stands 5x). Pt completes UE exercises in coordination with rolling. Pt's UE exercises focus on theraband and AROM that pt can continue at home, pt does not require but min reminders for specific exercises. Pt and educated of safe exercises to complete at home. Pt left in recliner chair with call light in reach, all needs met, present end of session. Education OT Patient Education: Energy conservation, Exercise program, Home exercise program, Instructions to caregiver, Modified ADL techniques, Progress toward Goal/Update tx plan, Rehab process, Safety issues Teaching Recipient: Patient, Significant Other Teaching Methods: Demonstration, Discussion Response to Teaching: Verbalize Understanding, Return Demonstration OT Short Term Goals Short Term Goals Upper Body Dressing(FIM): 4 (met) Lower Body Dressing(FIM): 4 (met) Transfers (B,C,W/C) (FIM): 5 (met) Additional Short Term Goals: 1-Demonstrate ADL Tasks, 2-Verbalize Understanding, 3-ImproveStrength/Arabella 1=Demonstrate adherence to instructed precautions during ADL tasks. 2=Patient will verbalize/demonstrate understanding of assistive devices/modifications for ADL. 3=Patient will improve strength/tolerance for activity to enable patient to perform ADL's. OT [facility] Goals Soaping Department Supervisor Goals Eating (QC): 6 (met) Oral Hygiene (QC): 6 (met) Shower/Bathe Self (QC): 4 (met) Upper Body Dressing (QC): 6 (met) Lower Body Dressing (QC): 6 (met) On/Off Footwear (QC): 6 (met) Toileting Hygiene (QC): 6 (met) Toilet/Commode Transfer (QC): 6 (met) Additional Goals: 1-Demonstrate ADL Tasks, 2-Verbalize Understanding, 3- ImproveStrength/Arabella 1=Demonstrate adherence to instructed precautions during ADL tasks. 2=Patient will verbalize/demonstrate understanding of assistive devices/modifications for ADL. 3=Patient will improve strength/tolerance for activity to enable patient to perform ADL's. OT Education/Plan Problem List/Assessment Assessment: Decreased Activ Tolerance, Decreased UE Strength, Impaired I ADL's, Impaired Self-Care Skills Discharge Recommendations Plan/Recommendations: Continue POC Therapy Discharge Recommendati: Intermittent Supervision ( at home throughout day) Equpiment Recommendations-D/C: None Treatment Plan/Plan of Care Treatment,Training & Education: Yes Patient would benefit from OT for education, treatment and training to promote independence in ADL's, mobility, safety and/or upper extremity function for ADL's. Plan of Care: ADL Retraining, Caregiver Training, Concurrent Therapy, Functional Mobility, Group Exercise/Act as Ind, UE Funct Exercise/Act Treatment Duration: Apr 26, 2019 Frequency: At least 5 of 7 days/Wk (IRF) Estimated Hrs Per Day: 1.5 hours per day Agreement: Yes Rehab Potential: Fair Time/GCodes Start Time: 09:30 Stop Time: 11:00 Total Time Billed (hr/min): 90 Billed Treatment Time 1, ADL 4 (60), EX 2 (30)= 90 PREMA RODRIGUEZ OTR Apr 21, 2019 12:35 POS
--- NOTE | 2019-04-21 13:53 | Physical Therapy Daily Note ---
PT Daily Note-Current Subjective pt in recliner pre-tx agrees to PT reports 9/10 pain in low back and R knee. Appearance pt in bed post-tx. pt with call light, room phone, tray table in reach and all n eeds met at this time. Mental Status Patient Orientation: Person, Place, Time, Situation Transfers SCALE: Activities may be completed with or without assistive devices. 9-Cishzesdnj-lbykcci completes the activity by him/herself with no assistance from a helper. 5-Set-up or Clean-up Assistance-helper sets up or cleans up; patient completes activity. Mcdonald assists only prior to or following the activity. 4-Supervision or Touching Assistance-helper provides verbal cues and/or touching/steadying and/or contact guard assistance as patient completes activity. Assistance may be provided throughout the activity or intermittently. 3-Partial/Moderate Assistance-helper does LESS THAN HALF the effort. Mcdonald lifts, holds or supports trunk or limbs, but provides less than half the effort. 2-Substantial/Maximal Assistance-helper does MORE THAN HALF the effort. Mcdonald lifts or holds trunk or limbs and provides more than half the effort. 6-Wuigzbvnq-qmajlp does ALL the effort. Patient does none of the effort to complete the activity. Or, the assistance of 2 or more helpers is required for the patient to complete the activity. If activity was not attempted, code reason: 7-Patient Refused. 9-Not Applicable-not attempted and the patient did not perform the activity before the current illness, exacerbation or injury. 10-Not Attempted due to Environmental Limitations-(lack of equipment, weather restraints, etc.). 88-Not Attempted due to Medical Conditions or Safety Concerns. Sit to Lying (QC): 6 Sit to Stand (QC): 6 Weight Bearing Right Lower Extremity: Right Full Weight Bearing Left Lower Extremity: Left Full Weight Bearing Wheelchair Training Does the Pt Use a Wheelchair?: Yes Wheelchair Distance: 3=150 ft Wheel 50 ft with 2 turns (QC): 6 Wheel 150 ft (QC): 6 Type of Wheelchair: Manual Stair Training Stair Training: Handrails/: 2 handrails #of Steps: 4 1 Step (curb) (QC): 4 (SBA) 4 Steps (QC): 1 (depX1. ) 12 Steps (QC): 88 Stairs: Pattern: Step to pt was CGA for ascending 4 steps and descending the first 2 steps. Pt became MaxA for the 3rd step and progressed to DepX1 with this PT having to bring pt down final step and turn into WC Treatments Pt performed stair training, WC training, transfer training, bed mobility training, and education this date. Assessment Current Status: Fair Progress Pt is independent with transfers, bed mobility. Pt continues to be SBA with ambulation due to the immediate need for a chair when she decides she can't walk any more. Pt is inconsistent in signs when she reports "shaky legs" and needing to sit including shaking arms, leaning very far forward, and slowly flexing knees into a controlled decent. This PT had to finish the stair training as a dependent transfer to keep pt from falling on the last step. PT Short Term Goals Short Term Goals Time Frame: Apr 19, 2019 Gait Distance Comment: 10' Gait Assistive Device: FWW (CGA) Wheelchair Distance: 120 PT Senior Care Goals Senior Care Goals PT Patrol Agent Goals Time Frame: May 03, 2019 Sit to Lying (QC): 4 (SBA) Lying-Sitting on Side/Bed(QC): 4 (SBA) Sit to Stand (QC): 4 (SBA) Roll Left to Right (QC): 6 Chair/Ykc-mu-Iequl Xfer(QC): 4 (SBA) Car Transfer (QC): 4 (SBA) Does the Patient Walk: Yes Distance: 50' Walk 10 feet (QC): 4 (SBA) Walk 10ft-Uneven Surface(QC): 4 (CGA) Walk 50ft with 2 Turns (QC): 4 (SBA) Walk 150 ft (QC): 88 Gait Assistive Device: FWW Does the Pt use WC or Scooter?: Yes Distance: 300' Wheel 50 feet with 2 turns (QC: 6 # of Steps: 1 1 Step (curb) (QC): 3 PT Plan Problem List Problem List: Activity Tolerance, Functional Strength, Safety, Balance, Gait, Transfer, Bed Mobility, ROM Treatment/Plan Treatment Plan: Continue Plan of Care Treatment Plan: Bed Mobility, Concurrent Therapy, Education, Functional Activity Arabella, Functional Strength, Group Therapy, Gait, Safety, Therapeutic Exercise, Transfers Treatment Duration: Apr 13, 2019 Frequency: At least 5 of 7 days/Wk (IRF) Estimated Hrs Per Day: 1.5 hours per day Patient and/or Family Agrees t: Yes Safety Risks/Education Patient Education: Transfer Techniques, Steps, Correct Positioning, Safety Is sues Teaching Recipient: Patient Teaching Methods: Demonstration, Discussion Response to Teaching: Return Demonstration, Reinforcement Needed Time/GCodes Time In: 1320 Time Out: 1350 Total Billed Treatment Time: 30 Total Billed Treatment 1 visit FA 20' [facility] 10' FRANCISCA MAHONEY PT Apr 21, 2019 13:53 POS
[2019-04-21 16:32] VITALS: BP 122/67
--- NOTE | 2019-04-21 21:45 | NUR ---
Accucheck 105, Dr. Vargas notified, new order to hold Levemir 10 units tonight.
[2019-04-21] MEDS: HYDROcodone/APAP 10 MG/325 MG (LORTAB) TAB PO PRN (21:53)
[2019-04-21] MEDS: ROSUVASTATIN 10 MG (CRESTOR) TABLET PO SCH (21:53)
[2019-04-21] MEDS: diphenhydrAMINE 25 MG TAB (BENADRYL) PO SCH (21:53)
[2019-04-21] MEDS: RT-ALBUTEROL/IPRATROPIUM 3 ML (DUONEB) VIAL INH SCH (21:55)
[2019-04-22] MEDS: inSUlin ASPART (NovoLOG) 1 UNIT/0.01 ML (CHARGE PER UNIT) SC SCH ×2 (06:19→11:00)
[2019-04-22] MEDS: predniSONE 5 MG TAB PO SCH (06:19)
[2019-04-22] MEDS: OMEGA 3 (FISH OIL) 1000 MG CAP PO SCH (06:19)
[2019-04-22] MEDS: CATHETER FLUSH 10 ML SYR IV SCH (06:21)
[2019-04-22 06:30] VITALS: BP 122/69
--- NOTE | 2019-04-22 08:57 | Discharge Summary ---
Diagnosis/Chief Complaint Date of Admission Apr 12, 2019 at 10:40 Date of Discharge Discharge Date: Apr 22, 2019 Discharge Diagnosis Assessment: Fall with debility DM HTN CAD s/p UTI Chronic back pain Wheezing with cough Plan: Monitor BP and BS Home meds Pain meds IRF protocol Nebs Normal CXR ICS DC Thursday (1) Debility (2) Urinary tract infection Status: Acute (3) IDDM (insulin dependent diabetes mellitus) Status: Acute (4) CAD (coronary artery disease) Status: Chronic (5) Vertigo Status: Acute (6) HTN (hypertension) Status: Acute (7) Left leg weakness Status: Acute Discharge Summary Discharge Physical Examination Allergies: Coded Allergies: Sulfa (Sulfonamide Antibiotics) (Unverified Allergy, Unknown, HIVES, SOB, 10/27/06) morphine (Unverified Allergy, Unknown, UNKNOWN, 10/27/06) propoxyphene (Unverified Allergy, Unknown, UNKNOWN, 10/27/06) erythromycin base (Unverified Adverse Reaction, Unknown, SICK TO HER STOMACH, CRAMPS, VOMITING, 10/27/06) Vitals & I&Os Vital Signs Date Time Temp Pulse Resp B/P (MAP) Pulse Ox O2 Delivery O2 Flow Rate FiO2 04/22/19 12:00 37.2 60 16 122/69 91 Room Air 3.00 General Appearance: Alert, Oriented X3, Cooperative Respiratory: Clear to Auscultation Cardiovascular: Regular Rate Neuro: Normal Speech, Strength at 5/5 X4 Ext Psych/Mental Status: Mental Status NL Hospital Course Was the Problem List Reviewed?: Yes Hospital Course: Pt had an uneventful week and a half hospital course when she was admitted for severe debility following a fall and UTI. Dr. Clay followed the pt along for insulin. COugh was diagnosed. Chest xray negative but was found to have influenza B, Placed on Tamiflu IV Rocephin for bronchitis and advair was maintained along with nebulizer treatments. Overall she maintained her good participation with therapy and was able to DC to home with improvement in her prior level of functioning. Labs (last 24 hrs) Laboratory Tests 04/12/19 16:23: Glucometer 148H 04/12/19 20:57: Glucometer 164H 04/13/19 04:45: White Blood Count 5.3, Red Blood Count 3.83L, Hemoglobin 12.8, Hematocrit 38, Mean Corpuscular Volume 99, Mean Corpuscular Hemoglobin 33, Mean Corpuscular Hemoglobin Concent 34, Red Cell Distribution Width 12.6, Platelet Count 132, M jonah Platelet Volume 9.6, Neutrophils (%) (Auto) 50, Lymphocytes (%) (Auto) 32, Monocytes (%) (Auto) 14H, Eosinophils (%) (Auto) 4, Basophils (%) (Auto) 1, Neutrophils # (Auto) 2.6, Lymphocytes # (Auto) 1.7, Monocytes # (Auto) 0.7, Eosi nophils # (Auto) 0.2, Basophils # (Auto) 0.0, Sodium Level 138, Potassium Level 3.6, Chloride Level 101, Carbon Dioxide Level 27, Anion Gap 10, Blood Urea Nitrogen 13, Creatinine 0.85, Estimat Glomerular Filtration Rate > 60, BUN/Creatinine Ratio 15, Glucose Level 87, Calcium Level 8.8, Corrected Calcium 9.5, Iron Level 65, Total Bilirubin 0.6, Aspartate Amino Transf (AST/SGOT) 48H, Alanine Aminotransferase (ALT/SGPT) 21, Alkaline Phosphatase 44, Total Protein 5.1L, Albumin 3.1L 04/13/19 11:26: Glucometer 112H 04/13/19 16:59: Glucometer 120H 04/13/19 21:14: Glucometer 152H 04/14/19 06:15: Glucometer 91 04/14/19 11:17: Glucometer 95 04/14/19 16:43: Glucometer 126H 04/14/19 20:19: Glucometer 108 04/15/19 04:46: Glucometer 78 04/15/19 11:06: Glucometer 115H 04/15/19 15:03: Glucometer 170H 04/15/19 20:23: Glucometer 115H 04/16/19 06:00: Glucometer 75 04/16/19 11:44: Glucometer 106 04/16/19 15:30: Glucometer 130H 04/16/19 20:45: Glucometer 82 04/17/19 04:57: Glucometer 107 04/17/19 10:40: Glucometer 127H 04/17/19 16:02: Glucometer 129H 04/17/19 20:34: Glucometer 132H 04/18/19 05:42: White Blood Count 4.6, Red Blood Count 4.01L, Hemoglobin 13.4, Hematocrit 40, Mean Corpuscular Volume 100H, Mean Corpuscular Hemoglobin 33, Mean Corpuscular Hemoglobin Concent 34, Red Cell Distribution Width 13.2, Platelet Count 140, Mean Platelet Volume 9.8, Neutrophils (%) (Auto) 54, Lymphocytes (%) (Auto) 31, Monocytes (%) (Auto) 13H, Eosinophils (%) (Auto) 2, Basophils (%) (Auto) 0, Neutrophils # (Auto) 2.5, Lymphocytes # (Auto) 1.4, Monocytes # (Auto) 0.6, Eosinophils # (Auto) 0.1, Basophils # (Auto) 0.0, Sodium Level 140, Potassium Level 3.8, Chloride Level 106, Carbon Dioxide Level 24, Anion Gap 10, Blood Urea Nitrogen 11, Creatinine 0.89, Estimat Glomerular Filtration Rate > 60, BUN/Creatinine Ratio 12, Glucose Level 77, Calcium Level 8.7, Corrected Calcium 9.4, Total Bilirubin 0.6, Aspartate Amino Transf (AST/SGOT) 29, Alanine Aminotransferase (ALT/SGPT) 21, Alkaline Phosphatase 40, Total Protein 5.1L, Albumin 3.1L 04/18/19 07:00: Glucometer 85 04/18/19 11:20: Glucometer 125H 04/18/19 15:32: Glucometer 120H 04/18/19 20:37: Glucometer 122H 04/19/19 06:20: Glucometer 75 04/19/19 11:01: Glucometer 115H 04/19/19 15:49: Glucometer 100 04/19/19 21:06: Glucometer 106 04/20/19 05:36: Glucometer 86 04/20/19 10:48: Glucometer 103 04/20/19 15:54: Glucometer 108 04/20/19 20:37: Glucometer 105 04/21/19 06:07: Glucometer 79 04/21/19 10:56: Glucometer 97 04/21/19 15:58: Glucometer 103 04/21/19 20:38: Glucometer 105 04/22/19 06:18: Glucometer 79 04/22/19 11:00: Glucometer 99 Microbiology 04/19/19 Influenza Types A,B Antigen (HAYLEY) - Final, Complete Pending Labs Microbiology Date/Time Source Procedure Growth Status 04/19/19 19:47 Nasopharynx Influenza Types A,B Antigen (HAYLEY) - Final Complete Laboratory Tests 04/12/19 16:23: Glucometer 148 04/12/19 20:57: Glucometer 164 04/13/19 04:45: White Blood Count 5.3, Red Blood Count 3.83, Hemoglobin 12.8, Hematocrit 38, Mean Corpuscular Volume 99, Mean Corpuscular Hemoglobin 33, Mean Corpuscular Hemoglobin Concent 34, Red Cell Distribution Width 12.6, Platelet Count 132, Mean Platelet Volume 9.6, Neutrophils (%) (Auto) 50, Lymphocytes (%) (Auto) 32, Monocytes (%) (Auto) 14, Eosinophils (%) (Auto) 4, Basophils (%) (Auto) 1, Neutrophils # (Auto) 2.6, Lymphocytes # (Auto) 1.7, Monocytes # (Auto) 0.7, Eosinophils # (Auto) 0.2, Basophils # (Auto) 0.0, Sodium Level 138, Potassium Level 3.6, Chloride Level 101, Carbon Dioxide Level 27, Anion Gap 10, Blood Urea Nitrogen 13, Creatinine 0.85, Estimat Glomerular Filtration Rate > 60, BUN/Creatinine Ratio 15, Glucose Level 87, Calcium Level 8.8, Corrected Calcium 9.5, Iron Level 65, Total Bilirubin 0.6, Aspartate Amino Transf (AST/SGOT) 48, A lanine Aminotransferase (ALT/SGPT) 21, Alkaline Phosphatase 44, Total Protein 5.1, Albumin 3.1 04/13/19 11:26: Glucometer 112 04/13/19 16:59: Glucometer 120 04/13/19 21:14: Glucometer 152 04/14/19 06:15: Glucometer 91 04/14/19 11:17: Glucometer 95 04/14/19 16:43: Glucometer 126 04/14/19 20:19: Glucometer 108 04/15/19 04:46: Glucometer 78 04/15/19 11:06: Glucometer 115 04/15/19 15:03: Glucometer 170 04/15/19 20:23: Glucometer 115 04/16/19 06:00: Glucometer 75 04/16/19 11:44: Glucometer 106 04/16/19 15:30: Glucometer 130 04/16/19 20:45: Glucometer 82 04/17/19 04:57: Glucometer 107 04/17/19 10:40: Glucometer 127 04/17/19 16:02: Glucometer 129 04/17/19 20:34: Glucometer 132 04/18/19 05:42: White Blood Count 4.6, Red Blood Count 4.01, Hemoglobin 13.4, Hematocrit 40, Mean Corpuscular Volume 100, Mean Corpuscular Hemoglobin 33, Mean Corpuscular Hemoglobin Concent 34, Red Cell Distribution Width 13.2, Platelet Count 140, Mean Platelet Volume 9.8, Neutrophils (%) (Auto) 54, Lymphocytes (%) (Auto) 31, Monocytes (%) (Auto) 13, Eosinophils (%) (Auto) 2, Basophils (%) (Auto) 0, Neutrophils # (Auto) 2.5, Lymphocytes # (Auto) 1.4, Monocytes # (Auto) 0.6, Eosinophils # (Auto) 0.1, Basophils # (Auto) 0.0, Sodium Level 140, Potassium Level 3.8, Chloride Level 106, Carbon Dioxide Level 24, Anion Gap 10, Blood Urea Nitrogen 11, Creatinine 0.89, Estimat Glomerular Filtration Rate > 60, BUN/Creatinine Ratio 12, Glucose Level 77, Calcium Level 8.7, Corrected Calcium 9.4, Total Bilirubin 0.6, Aspartate Amino Transf (AST/SGOT) 29, Alanine Aminotransferase (ALT/SGPT) 21, Alkaline Phosphatase 40, Total Protein 5.1, Albumin 3.1 04/18/19 07:00: Glucometer 85 04/18/19 11:20: Glucometer 125 04/18/19 15:32: Glucometer 120 04/18/19 20:37: Glucometer 122 04/19/19 06:20: Glucometer 75 04/19/19 11:01: Glucometer 115 04/19/19 15:49: Glucometer 100 04/19/19 21:06: Glucometer 106 04/20/19 05:36: Glucometer 86 04/20/19 10:48: Glucometer 103 04/20/19 15:54: Glucometer 108 04/20/19 20:37: Glucometer 105 04/21/19 06:07: Glucometer 79 04/21/19 10:56: Glucometer 97 04/21/19 15:58: Glucometer 103 04/21/19 20:38: Glucometer 105 04/22/19 06:18: Glucometer 79 04/22/19 11:00: Glucometer 99 Discharge Home Medications: Active Scripts Active Tamiflu (Oseltamivir Phosphate) 75 Mg Cap 75 Mg PO BID Reported Novolog (Insulin Aspart) 100 Unit/1 Ml Susp Unit SQ DAILY 1700 PRN TAKES BLOOD SUGAR AND DEPENDING ON THAT READING ALONG WITH WHAT HER MEAL IS SHE USES A SLIDING SCALE Diphenhist (Diphenhydramine HCl) 25 Mg Capsule 50 Mg PO HS Atenolol 25 Mg Tablet 25 Mg PO HS Pantoprazole Sodium 40 Mg Tablet.dr 40 Mg PO DAILY Spironolactone 25 Mg Tablet 25 Mg PO DAILY Ranexa (Ranolazine) 1,000 Mg Tab.er.12h 1,000 Mg PO BID Rosuvastatin Calcium 10 Mg Tablet 10 Mg PO HS Furosemide 20 Mg Tablet 20 Mg PO DAILY Amlodipine Besylate 5 Mg Tablet 5 Mg PO DAILY Vitamin D3 (Cholecalciferol (Vitamin D3)) 1,000 Unit Tablet 2,000 Unit PO DAILY take 2 (1000mg) tabs Levemir Flextouch (Insulin Detemir) 100 Unit/1 Ml Insuln.pen 10 Unit SQ 0700 TAKES LEVEMIR AND NOVOLOG TOGETHER IN THE MORNING Albuterol Sulfate 2.5 Mg/3 Ml Vial.neb 2.5 Mg IH Q6H PRN Hydrocodon-Acetaminophn 10-325 (Hydrocodone/Acetaminophen) 1 Each Tablet 1 Each PO Q6H PRN Fish Oil 1,000 mg Softgel ([place]reve-3/Dha/Epa/Fish Oil) 1 Each Capsule 1 Each PO TID Adult Low Dose Aspirin EC (Aspirin) 81 Mg Tablet. 81 Mg PO DAILY Losartan Potassium 25 Mg Tablet 25 Mg PO DAILY Hydrochlorothiazide 25 Mg Tablet 25 Mg PO HS Instructions to patient/family Please see electronic discharge instructions given to patient. Diagnosis/Problems Diagnosis/Problems (1) Debility (2) Urinary tract infection Status: Acute (3) IDDM (insulin dependent diabetes mellitus) Status: Acute (4) CAD (coronary artery disease) Status: Chronic (5) Vertigo Status: Acute (6) HTN (hypertension) Status: Acute (7) Left leg weakness Status: Acute CHELY ESPARZA DO Apr 22, 2019 08:57 POS
--- NOTE | 2019-04-22 09:11 | Therapy Team Discharge Summary ---
Therapy Discharge Summary Discharge Recommendations Date of Discharge Physical Therapy Patient came to rehab with debility. Upon evaluation patient performed bed mobility with SBA, supine <-> sit with min assist, sit <-> stand with mod assist, transfers with min assist, car transfer min assist, ambulates 5' with a rolling walker with CGA, and propelled a manual WC 150' with independence. Patient has been performing bed mobility and transfer training, balance and endurance training, functional strengthening, stair training, gait training, and education. Patient has made fair progress and has met all of her custodial goals but endurance remains an issue. Now, patient performs bed mobility and transfers with independence, car transfer with independence, ambulates 76' with a rolling walker with SBA (including 50' with at least 2 turns of 90 degrees and 10' over an uneven surface), propels a manual wheelchair 150' with independence, and can go up and down 1 step with a rolling walker with SBA but up and down 4 steps with dependence. Patient is discharging from this facility today and will be discharged from PT at this time. Occupational Therapy Decreased Activ Tolerance, Decreased UE Strength, Impaired I ADL's, Impaired Self-Care Skills PT Shoe Laster Goals Alf Goals PT Shoe Laster Goals Time Frame: May 03, 2019 Roll Left to Right (QC): 6 Sit to Lying (QC): 4 (SBA) Lying-Sitting on Side/Bed(QC): 4 (SBA) Sit to Stand (QC): 4 (SBA) Chair/Lds-bp-Kwpvk Xfer(QC): 4 (SBA) Car Transfer (QC): 4 (SBA) Does the Patient Walk: Yes Distance: 50' Walk 10 feet (QC): 4 (SBA) Walk 10ft-Uneven Surface(QC): 4 (CGA) Walk 50ft with 2 Turns (QC): 4 (SBA) Walk 150 ft (QC): 88 Gait Assistive Device: FWW Does the Pt use WC or Scooter?: Yes Distance: 300' Wheel 50 feet with 2 turns (QC: 6 # of Steps: 1 1 Step (curb) (QC): 3 OT Alf Goals Alf Goals Eating (QC): 6 (met) Oral Hygiene (QC): 6 (met) Shower/Bathe Self (QC): 4 (met) Upper Body Dressing (QC): 6 (met) Lower Body Dressing (QC): 6 (met) On/Off Footwear (QC): 6 (met) Toileting Hygiene (QC): 6 (met) Toilet/Commode Transfer (QC): 6 (met) Additional Goals: 1-Demonstrate ADL Tasks, 2-Verbalize Understanding, 3-Impr oveStrength/Arabella 1=Demonstrate adherence to instructed precautions during ADL tasks. 2=Patient will verbalize/demonstrate understanding of assistive devices/modifications for ADL. 3=Patient will improve strength/tolerance for activity to enable patient to perform ADL's. FRANCISCA MAHONEY PT Apr 22, 2019 09:11 POS
[2019-04-22] MEDS: PANTOPRAZOLE 40 MG (PROTONIX) TAB PO SCH (09:41)
[2019-04-22] MEDS: RANOLAZINE ER 500 MG TAB (RANEXA) PO SCH (09:41)
[2019-04-22] MEDS: amLODIPine 5 MG (NORVASC) TAB PO SCH (09:41)
[2019-04-22] MEDS: SPIRONOLACTONE 25 MG (ALDACTONE) TAB PO SCH (09:41)
[2019-04-22] MEDS: VITAMIN D3 1,000 UNITS (CHOLECALCIFEROL) TABLET PO SCH (09:41)
[2019-04-22] MEDS: ASPIRIN E.C. 81 MG (ECOTRIN) TAB PO SCH (09:41)
[2019-04-22] MEDS: FUROSEMIDE 20 MG (LASIX) TAB PO SCH (09:42)
[2019-04-22] MEDS: OSELTAMIVIR 75 MG (TAMIFLU) CAPSULE PO SCH (09:42)
[2019-04-22] MEDS: LOSARTAN 25 MG (COZAAR) TAB PO SCH (09:42)
[2019-04-22] MEDS: SENNA W/DOCUSATE (SENOKOT S) TABLET PO SCH (09:42)
--- NOTE | 2019-04-22 10:32 | Therapy Team Discharge Summary ---
Therapy Discharge Summary Discharge Recommendations Date of Discharge Occupational Therapy Pt admitted to ARU with medical dx of debility with hx of falls at home. Pt lives at home with , assisted with some ADL activities prior. Upon admit pt completes LB dressing with min A, toilet transfer with CGA, and mod A for toilet hygiene and CGA in stance with decreased UE strength. During stay pt and OT worked on ADL activities, standing tolerance and functional transfers, and UB strengthening. Pt reached all goals, able to complete all ADLs with IND (excluding showering which requires min A for back which pt's completed prior at home). Pt has handicapped shower, shower chair with grab bars; no d/c AE recommended. Pt and OT discussed role of HH OT services, OT and pt agree no HH required upon d/c. D/c OT services. Decreased Activ Tolerance, Decreased UE Strength, Impaired I ADL's, Impaired Self-Care Skills PT Resident Services Coordinator Goals Residential Goals PT Residential Goals Time Frame: May 03, 2019 Roll Left to Right (QC): 6 Sit to Lying (QC): 4 (SBA) Lying-Sitting on Side/Bed(QC): 4 (SBA) Sit to Stand (QC): 4 (SBA) Chair/Swp-ji-Madqq Xfer(QC): 4 (SBA) Car Transfer (QC): 4 (SBA) Does the Patient Walk: Yes Distance: 50' Walk 10 feet (QC): 4 (SBA) Walk 10ft-Uneven Surface(QC): 4 (CGA) Walk 50ft with 2 Turns (QC): 4 (SBA) Walk 150 ft (QC): 88 Gait Assistive Device: FWW Does the Pt use WC or Scooter?: Yes Distance: 300' Wheel 50 feet with 2 turns (QC: 6 # of Steps: 1 1 Step (curb) (QC): 3 OT Resident Services Coordinator Goals Residential Goals Eating (QC): 6 (met) Oral Hygiene (QC): 6 (met) Shower/Bathe Self (QC): 4 (met) Upper Body Dressing (QC): 6 (met) Lower Body Dressing (QC): 6 (met) On/Off Footwear (QC): 6 (met) Toileting Hygiene (QC): 6 (met) Toilet/Commode Transfer (QC): 6 (met) Additional Goals: 1-Demonstrate ADL Tasks, 2-Verbalize Understanding, 3- ImproveStrength/Arabella 1=Demonstrate adherence to instructed precautions during ADL tasks. 2=Patient will verbalize/demonstrate understanding of assistive devices/modifications for ADL. 3=Patient will improve strength/tolerance for activity to enable patient to perform ADL's. PREMA RODRIGUEZ OTR Apr 22, 2019 10:32 POS
--- NOTE | 2019-04-22 11:32 | Progress Note ---
Subjective Date Seen by a Provider: Apr 22, 2019 Time Seen by a Provider: 11:00 Objective Exam Last Set of Vital Signs Vital Signs Date Time Temp Pulse Resp B/P (MAP) Pulse Ox O2 Delivery O2 Flow Rate FiO2 04/22/19 08:20 Room Air 04/22/19 06:30 37.2 60 16 122/69 (86) 91 04/17/19 23:03 3.00 Capillary Refill : Less Than 3 Seconds I&O Intake and Output 04/22/19 00:00 Intake Total 950 ml Balance 950 ml Intake Oral 950 ml # Voids 5 # Bowel Movements 1 Results Lab Laboratory Tests 04/21/19 15:58: Glucometer 103 04/21/19 20:38: Glucometer 105 04/22/19 06:18: Glucometer 79 04/22/19 11:00: Glucometer 99 Microbiology 04/19/19 Influenza Types A,B Antigen (HAYLEY) - Final, Complete Assessment/Plan Assessment/Plan Assess & Plan/Chief Complaint SPINAL STENOSIS BACK PAIN HYPERTENSION WITH KNOWN CAD HYPERLIPIDEMIA DIABETES MELLITUS PERIPHERAL NEUROPATHY CHRONIC EDEMA SPINAL STENOSIS WITH CHRONIC BACK PAIN - PLANNING ON THERAPY FOR STRENGTHENING PRIOR TO DISCHARGE TO HOME - PT IS NOT A GOOD SURGICAL CANDIDATE PER NEUROSURGEON AND THEY ARE TRYING TO AVOID ANY OPERATIVE INTERVENTION BENIGNO WOULD NEED AN EXTENSIVE PROCEDURE SHOULD SHE GO TO THE [facility] HYPERTENSION WITH CAD - RESUMED HOME REGIMEN, MONITOR PRESSURE CLOSELY AND WILL ADJUST MEDICATIONS SHOULD THAT BE NEEDED. - CONTINUE RANEXA HYPERLIPIDEMIA - ON CRESTOR OUTPATIENT, CONTINUE WITH STATIN THERAPY DIABETES MELLITUS - ON INSULIN OUTPATIENT - ADJUST MEDICATION TO PREVENT LOW BLOOD GLUCOSE READINGS. SHE HAS REQUIRED LESS MEDICATION SINCE SHE HAS BEEN IN THE HOSPITAL. PERIPHERAL NEUROPATHY - MULTIFACTORIAL - DUE TO DM AND SPINAL STENOSIS - SUPPORTIVE CARE CHRONIC EDEMA - PRN KARY MUNOZ MD Apr 22, 2019 11:32 POS
[2019-04-22] MEDS ORDERED: OSLT75C PO (11:36)
[2019-04-22 12:00] VITALS: BP 122/69
== END 2019-04-22 12:00 | disposition home or self-care (01) | DRG 948 ==
PROVIDERS: ADMIT Internal Medicine; ATTEND Internal Medicine
DX: R53.1 Weakness (principal); E11.42 Type 2 diabetes mellitus with diabetic polyneuropathy; R29.898 Other symptoms and signs involving the musculoskeletal system; M48.061 Spinal stenosis, lumbar region without neurogenic claudication; J10.1 Influenza due to other identified influenza virus with other respiratory manifestations; I25.119 Atherosclerotic heart disease of native coronary artery with unspecified angina pectoris; I10 Essential (primary) hypertension; E78.5 Hyperlipidemia, unspecified; F32.9 Major depressive disorder, single episode, unspecified; R60.9 Edema, unspecified; Z79.4 Long term (current) use of insulin; I25.2 Old myocardial infarction; Z87.891 Personal history of nicotine dependence; Z85.42 Personal history of malignant neoplasm of other parts of uterus; Z90.710 Acquired absence of both cervix and uterus; Z90.722 Acquired absence of ovaries, bilateral; Z90.79 Acquired absence of other genital organ(s); W19.XXXD Unspecified fall, subsequent encounter; Y92.012 Bathroom of single-family (private) house as the place of occurrence of the external cause
CPT/HCPCS: 36415; 71046; 80053; 82962; 83540; 85025; 87804; 94640; 94760

== ENCOUNTER 2019-05-28 06:24 | Emergency (ER) | payer MEDICARE ==
[~2019-05-28] VITALS: Ht 167 cm; Wt 100.0 kg
[~2019-05-28 06:24] MED LIST changes: +OSLT75C PO
[2019-05-28] MEDS ORDERED: ONDANSETRON 4 MG/2 ML (SDV) Z0FRAN ONE (06:25)
[2019-05-28] MEDS ORDERED: ONDANSETRON 4 MG/2 ML (SDV) Z0FRAN IVP ONE (06:30)
[2019-05-28] MEDS ORDERED: RT-ALBUTEROL/IPRATROPIUM 3 ML (DUONEB) VIAL INH ONE (06:30)
[2019-05-28 06:56] LABS: BASOPHILS % (AUTO) 0 % (0-10); EOSINOPHILS # (AUTO) 0.4 10^3/uL (0.0-0.3); EOSINOPHILS % (AUTO) 4 % (0-10); HEMATOCRIT 42 % (35-52); HEMOGLOBIN 14.7 G/DL (11.5-16.0); LYMPHOCYTES # (AUTO) 2.2 X 10^3 (1.0-4.0); LYMPHOCYTES % (AUTO) 22 % (12-44); MEAN CORPUSCULAR HEMOGLOBIN 34 PG (25-34); MEAN CORPUSCULAR HGB CONC 35 G/DL (32-36); MEAN CORPUSCULAR VOLUME 98 FL (80-99); MEAN PLATELET VOLUME 10.5 FL (7.4-10.4); MONOCYTES # (AUTO) 0.9 X 10^3 (0.0-1.0); MONOCYTES % (AUTO) 9 % (0-12); NEUTROPHILS # (AUTO) 6.6 X 10^3 (1.8-7.8); NEUTROPHILS % (AUTO) 65 % (42-75); PLATELET COUNT 190 10^3/uL (130-400); RED CELL DISTRIBUTION WIDTH 12.4 % (10.0-14.5); WHITE BLOOD COUNT 10.2 10^3/uL (4.3-11.0)
[2019-05-28 07:07] LABS: ALBUMIN 3.7 GM/DL (3.2-4.5); BILIRUBIN,TOTAL 0.6 MG/DL (0.1-1.0); CALCIUM 9.1 MG/DL (8.5-10.1); CREATININE SERUM 0.92 MG/DL (0.60-1.30); POTASSIUM 4.2 MMOL/L (3.6-5.0); TOTAL PROTEIN 6.4 GM/DL (6.4-8.2)
[2019-05-28 07:27] LABS: ABG BASE EXCESS 3.2 MMOL/L (-2.5-2.5); ABG OXYGEN SATURATION 93 % (94-100); ABG PCO2 50 MMHG (35-45); ABG PH 7.37 (7.37-7.43); ABG PO2 74 MMHG (79-93); ABG TCO2 29.7 MMOL/L (21.0-31.0)
[2019-05-28 07:28] LABS: ALLENS TEST YES-POS; INSPIRED O2 2L; VENTILATOR NO
[2019-05-28 07:29] LABS: PATIENT TEMP 36.7
--- NOTE | 2019-05-28 08:15 | ED General ---
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 pt states she noticed the symptoms when she tried to roll over in bed. provider noted that the pt was not moving much air in her lungs, pt states she has a asthma hx and hasnt used her meds. Nursing Sepsis Screen: No Definite Risk Source of Information: Patient Exam Limitations: No Limitations History of Present Illness Date Seen by Provider: May 28, 2019 Time Seen by Provider: 06:25 Initial Comments This 78-year-old woman presents to the emergency room with complaints of generalized weakness. She reports waking up this morning and noticing that neither of her legs were "working properly". She also complained of weakness in her right arm. She has had multiple episodes similar to this in the past with workups both at [facility] and at [facility]. No significant findings were seen on neuro imaging including CT and CT angiogram at [facility] and MRI at [facility]. She did have a stay at the acute rehabilitation unit before returning home. On assessment by EMS the Bradley stroke scale was negative. Fingerstick blood sugar was 110. Patient was afebrile. On my assessment she gross s global weakness but no focal deficits. Patient does have a history of lumbar spinal stenosis based on review of imaging. She is noted to have significantly reduced air movement and wheezing on exam as well. Patient reports she normally does a nebulizer treatment before bed each night. Patient also had recent urinary tract infection. Allergies and Home Medications Allergies Coded Allergies: Sulfa (Sulfonamide Antibiotics) (Unverified Allergy, Unknown, HIVES, SOB, 10/27/06) morphine (Unverified Allergy, Unknown, UNKNOWN, 10/27/06) propoxyphene (Unverified Allergy, Unknown, UNKNOWN, 10/27/06) erythromycin base (Unverified Adverse Reaction, Unknown, SICK TO HER STOMACH, CRAMPS, VOMITING, 10/27/06) Home Medications Albuterol Sulfate 2.5 Mg/3 Ml Vial.neb, 2.5 MG IH Q6H PRN for WHEEZING, (Reported) Amlodipine Besylate 5 Mg Tablet, 5 MG PO DAILY, (Reported) Aspirin 81 Mg Tablet.dr, 81 MG PO DAILY, (Reported) Atenolol 25 Mg Tablet, 25 MG PO HS, (Reported) Cholecalciferol (Vitamin D3) 1,000 Unit Tablet, 2,000 UNIT PO DAILY, (Reported) take 2 (1000mg) tabs Diphenhydramine HCl 25 Mg Capsule, 50 MG PO HS, (Reported) Furosemide 20 Mg Tablet, 20 MG PO DAILY, (Reported) Hydrochlorothiazide 25 Mg Tablet, 25 MG PO HS, (Reported) Hydrocodone/Acetaminophen 1 Each Tablet, 1 EACH PO Q6H PRN for PAIN-MODERATE, (Reported) Insulin Aspart 100 Unit/1 Ml Susp, UNIT SQ DAILY 1700 PRN for HYPOGLYCEMIA, (Reported) TAKES BLOOD SUGAR AND DEPENDING ON THAT READING ALONG WITH WHAT HER MEAL IS SHE USES A SLIDING SCALE Insulin Detemir 100 Unit/1 Ml Insuln.pen, 10 UNIT SQ 0700, (Reported) TAKES LEVEMIR AND NOVOLOG TOGETHER IN THE MORNING Losartan Potassium 25 Mg Tablet, 25 MG PO DAILY, (Reported) [place]-3/Dha/Epa/Fish Oil 1 Each Capsule, 1 EACH PO TID, (Reported) Oseltamivir Phosphate 75 Mg Cap, 75 MG PO BID Prescribed by: KARY MEHTA on 04/22/19 1136 Pantoprazole Sodium 40 Mg Tablet.dr, 40 MG PO DAILY, (Reported) Ranolazine 1,000 Mg Tab.er.12h, 1,000 MG PO BID, (Reported) Rosuvastatin Calcium 10 Mg Tablet, 10 MG PO HS, (Reported) Spironolactone 25 Mg Tablet, 25 MG PO DAILY, (Reported) Patient Home Medication List Home Medication List Reviewed: Yes Review of Systems Review of Systems Constitutional: see HPI, weakness EENTM: no symptoms reported Respiratory: no symptoms reported Cardiovascular: no symptoms reported Gastrointestinal: no symptoms reported Genitourinary: no symptoms reported : No Musculoskeletal: no symptoms reported Skin: no symptoms reported Psychiatric/Neurological: See HPI Hematologic/Lymphatic: No Symptoms Reported Immunological/Allergic: no symptoms reported Past Vnktywq-Ekbqwc-Pwagkd Hx Past Med/Social Hx: Reviewed and Corrections made Patient Social History Alcohol Use: Denies Use Recreational Drug Use: No Smoking Status: Former Smoker Type Used: Cigarettes Former Smoker, Quit: Mar 27, 1988 2nd Hand Smoke Exposure: No Recent Foreign Travel: No Contact w/Someone Who Travel: No Recent Infectious Disease Expo: No Recent Hopitalizations: Yes Physical Abuse: No Sexual Abuse: No Mistreated: No Fear: No Immunizations Up To Date Tetanus Booster (TDap): Unknown PED Vaccines UTD: Yes Date of Pneumonia Vaccine: November 01, 2008 Date of Influenza Vaccine: Apr 12, 2019 Seasonal Allergies Seasonal Allergies: No Past Medical History Surgeries: Yes Adenoidectomy, Appendectomy, Cardiac, Eye Surgery, Gallbladder, Hysterectomy, Oophorectomy, Orthopedic, Tonsillectomy Respiratory: Yes Asthma, COPD Cardiac: Yes Coronary Artery Disease, High Cholesterol, Hypertension Neurological: Yes (PERIPHERAL NEUROPATHY) Neuropathy : No Reproductive Disorders: Yes (ENDOMETRIAL CANCER--S/P HYST/BSO) 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 No Pertinent Family Hx Physical Exam Vital Signs Vital Signs - First Documented 05/28/19 05/28/19 06:24 14:07 Temp 36.8 Pulse 82 Resp 20 B/P (MAP) 156/92 (113) Pulse Ox 96 O2 Delivery Room Air O2 Flow Rate 1.00 Capillary Refill : Less Than 3 Seconds Height, Weight, BMI Height: 5'4.00" Weight: 230lbs. 0.0oz. 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, Motor Weakness (generalized weakness) Skin: Normal Color, Warm/Dry, Erythema (groin) Progress/Results/Core Measures Suspected Sepsis Recent Fever Within 48 Hours: No Infection Criteria Present: None New/Unexplained Altered Menta: No Sepsis Screen: No Definite Risk SIRS Temperature: Pulse: 82 Respiratory Rate: 20 Laboratory Tests 05/28/19 06:30: White Blood Count 10.2 Blood Pressure 156 /92 Mean: 113 Laboratory Tests 05/28/19 06:30: Creatinine 0.92, Platelet Count 190, Total Bilirubin 0.6 Results/Orders Lab Results Laboratory Tests Test 05/28/19 06:30 05/28/19 07:20 05/28/19 08:10 05/28/19 10:29 Range/Units White Blood Count 10.2 4.3-11.0 10^3/uL Red Blood Count 4.27 L 4.35-5.85 10^6/uL Hemoglobin 14.7 11.5-16.0 G/DL Hematocrit 42 35-52 % Mean Corpuscular Volume 98 80-99 FL Mean Corpuscular Hemoglobin 34 25-34 PG Mean Corpuscular Hemoglobin Concent 35 32-36 G/DL Red Cell Distribution Width 12.4 10.0-14.5 % Platelet Count 190 130-400 10^3/uL Mean Platelet Volume 10.5 H 7.4-10.4 FL Neutrophils (%) (Auto) 65 42-75 % Lymphocytes (%) (Auto) 22 12-44 % Monocytes (%) (Auto) 9 0-12 % Eosinophils (%) (Auto) 4 0-10 % Basophils (%) (Auto) 0 0-10 % Neutrophils # (Auto) 6.6 1.8-7.8 X 10^3 Lymphocytes # (Auto) 2.2 1.0-4.0 X 10^3 Monocytes # (Auto) 0.9 0.0-1.0 X 10^3 Eosinophils # (Auto) 0.4 H 0.0-0.3 10^3/uL Basophils # (Auto) 0.0 0.0-0.1 10^3/uL Sodium Level 135 135-145 MMOL/L Potassium Level 4.2 3.6-5.0 MMOL/L Chloride Level 98 98-107 MMOL/L Carbon Dioxide Level 24 21-32 MMOL/L Anion Gap 13 5-14 MMOL/L Blood Urea Nitrogen 16 7-18 MG/DL Creatinine 0.92 0.60-1.30 MG/DL Estimat Glomerular Filtration Rate 59 BUN/Creatinine Ratio 17 Glucose Level 101 70-105 MG/DL Calcium Level 9.1 8.5-10.1 MG/DL Corrected Calcium 9.3 8.5-10.1 MG/DL Magnesium Level 2.0 1.6-2.4 MG/DL Total Bilirubin 0.6 0.1-1.0 MG/DL Aspartate Amino Transf (AST/SGOT) 30 5-34 U/L Alanine Aminotransferase (ALT/SGPT) 22 0-55 U/L Alkaline Phosphatase 48 40-136 U/L Total Protein 6.4 6.4-8.2 GM/DL Albumin 3.7 3.2-4.5 GM/DL Blood Gas Puncture Site RT RADIAL Blood Gas Patient Temperature 36.7 Arterial Blood pH 7.37 7.37-7.43 Arterial Blood Partial Pressure CO2 50 H 35-45 MMHG Arterial Blood Partial Pressure O2 74 L 79-93 MMHG Arterial Blood HCO3 28 H 23-27 MMOL/L Arterial Blood Total CO2 29.7 21.0-31.0 MMOL/L Arterial Blood Oxygen Saturation 93 L 94-100 % Arterial Blood Base Excess 3.2 H -2.5-2.5 MMOL/L Tacho Test YES-POS Blood Gas Ventilator Setting NO Blood Gas Inspired Oxygen 2L Urine Color YELLOW Urine Clarity SL CLOUDY Urine pH 5.5 5-9 Urine Specific [place] >=1.030 1.016-1.022 Urine Protein NEGATIVE NEGATIVE Urine Glucose (UA) NEGATIVE NEGATIVE Urine Ketones NEGATIVE NEGATIVE Urine Nitrite NEGATIVE NEGATIVE Urine Bilirubin NEGATIVE NEGATIVE Urine Urobilinogen 0.2 < = 1.0 MG/DL Urine Leukocyte Esterase NEGATIVE NEGATIVE Urine RBC (Auto) NEGATIVE NEGATIVE Urine RBC RARE /HPF Urine WBC 2-5 /HPF Urine Squamous Epithelial Cells NONE /HPF Urine Crystals NONE /LPF Urine Bacteria LARGE H /HPF Urine Casts NONE /LPF Urine Mucus NEGATIVE /LPF Urine Culture Indicated YES Glucometer 138 H 70-110 MG/DL My Orders Orders - KATI MOFFETT MD Ondansetron Injection (Zofran Injectio (05/28/19 06:25) Ondansetron Injection (Zofran Injectio (05/28/19 06:30) Albuterol/Ipra Inhalation Soln (Duoneb I (05/28/19 06:30) Svn Small Volume Nebulizer (05/28/19 06:28) Cbc With Automated Diff (05/28/19 06:36) Comprehensive Metabolic Panel (05/28/19 06:36) Magnesium (05/28/19 06:36) Ua Culture If Indicated (05/28/19 06:36) Chest 1 View, Ap/Pa Only (05/28/19 06:48) Arterial Blood Gas (05/28/19 07:21) Urine Culture (05/28/19 08:10) Ns Iv 1000 Ml (Sodium Chloride 0.9%) (05/28/19 09:41) Meclizine Tablet (Antivert Tablet) (05/28/19 11:30) Prednisone Tablet (Deltasone Tablet) (05/28/19 11:30) Cho 60g/M 3snack (16-2000 Shankar) (05/28/19 Lunch) Ceftriaxone For Iv Use (Rocephin For I (05/28/19 11:30) Arterial Blood Draw (05/28/19 ) Medications Given in ED Current Medications Medications Dose Ordered Sig/Deepika Route Start Time Stop Time Status Last Admin Dose Admin Albuterol/ Ipratropium 3 ml ONCE ONCE INH 05/28/19 06:30 05/28/19 06:31 DC 05/28/19 06:34 3 ML Ceftriaxone Sodium 1000 mg/ Sterile Water 10 ml @ 200 mls/hr ONCE ONCE IV 05/28/19 11:30 05/28/19 11:32 DC 05/28/19 11:50 200 MLS/HR Meclizine HCl 12.5 mg ONCE ONCE PO 05/28/19 11:30 05/28/19 11:31 DC 05/28/19 11:51 12.5 MG Ondansetron HCl 8 mg ONCE ONCE IVP 05/28/19 06:30 05/28/19 06:31 DC 05/28/19 06:31 8 MG Prednisone 40 mg ONCE ONCE PO 05/28/19 11:30 05/28/19 11:31 DC 05/28/19 11:50 40 MG Sodium Chloride 1,000 ml @ 0 mls/hr Q0M ONCE IV 05/28/19 09:41 05/28/19 09:42 DC 05/28/19 09:50 1,000 MLS/HR Vital Signs/I&O 05/28/19 05/28/19 06:24 14:07 Temp 36.8 Pulse 82 62 Resp 20 18 B/P (MAP) 156/92 (113) 112/66 Pulse Ox 96 94 O2 Delivery Room Air Nasal Cannula O2 Flow Rate 1.00 Capillary Refill : Less Than 3 Seconds Blood Pressure Mean: 113 POS Progress Note #1: Time: 11:28 Progress Note Labs were relatively unremarkable. Patient had dizziness and lightheadedness upon sitting. She was given a liter of IV fluid. This helped somewhat but did not resolve her symptoms. We attempted the Trumbull-Hallpike maneuver and Milena maneuver. Her physical limitations did not allow us to perform the Milena maneuver appropriately and to completion. We also attempted to stand the patient. She was able to bear weight with significant assistance. She was not able to ambulate independently. We had serious concerns about her ability to f unction at home and her 's ability to get her into the house. Additionally there were concerns about her oxygenation. She had some mild hypoxia as low as 88 percent on room air. She was on nasal cannula oxygen during much of her ER stay. DuoNeb treatment did improve her lung exam. It resolved her wheezes and improved her air movement. Case was discussed with Dr. Weinberg who agreed with admission. He requested prednisone be administered for treatment of COPD exacerbation. The first dose was ordered for ER administration. She was also given Rocephin for suspected urinary tract infection. Patient is an insulin-dependent diabetic. She uses long-acting insulin on a sliding scale. Last night she took 26 units. Progress Note #2: Time: 13:53 Progress Note After further discussion with patient and her family. Patient's daughter who is a psychiatrist in [place] elaborates that patient appears to have had multiple episodes of sudden neurologic change. She is concerned about the neurologic status. Patient has had evaluation by a neurologist and by vascular surgery at [facility]. She has follow-up scheduled with Dr. Johnson in [place] in June. She does not have outpatient follow-up with a neurologist. 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 I discussed with Dr. Weinberg and we decided to consult vascular surgery at [facility]. I discussed the case with Dr. Johnson who recommended she be transferred for MRI and further evaluation by the specialists. Patient and family are agreeable to this next step. Diagnostic Imaging Diagonstic Imaging: Xray Plain Films/CT/US/NM/MRI: chest Comments Chest x-ray viewed by me and report reviewed. See report below: NAME: BENIGNO [facility]UMAR [facility] REC#: [id number] PT STATUS: REG ER : 1940 PHYSICIAN: KATI MOFFETT MD ADMIT DATE: 05/28/19/ER Draft Date of Exam:05/28/19 CHEST 1 VIEW, AP/PA ONLY EXAMINATION: Chest radiograph, portable AP view. DATE: 05/28/2019 7:28 AM hours. INDICATION: 78-year-old female, weakness. COMPARISON: April 18, 2019. FINDINGS: There is redemonstrated cardiomegaly. There is no identified pneumothorax. There is no large pleural effusion. There is no identified focal airspace consolidation. IMPRESSION: 1. Cardiomegaly without identified acute cardiopulmonary abnormality. Dictated on workstation # [id number] Dict: 05/28/19 0735 Trans: 05/28/19 0856 [facility] [id number] Interpreted by: DANYEL ARORA MD Departure Communication (Admissions) Time/Spoke to Admitting Phy: 11:15 Dr. Weinberg Impression Primary Impression: COPD exacerbation Additional Impressions: Vertigo Urinary tract infection Qualified Codes: N39.0 - Urinary tract infection, site not specified Lumbar spinal stenosis Qualified Codes: M48.061 - Spinal stenosis, lumbar region without neurogenic claudication Generalized weakness Debility Hypoxia Candidiasis of perineum Carotid artery mass Disposition: 09 ADMITTED INPATIENT Condition: Improved Admissions Decision to Admit Reason: Admit from ER (General) Decision to Admit/Date: May 28, 2019 Time/Decision to Admit Time: 12:28 Transfer Transfer Reason: Exceeds level of care Time Spoke to Accepting Phy: 12:28 Transfer Progress Notes Discussed with Dr. Johnson and Dr. Romeo at [facility] Transfer Time: 14:07 Transfer Facility: [facility] [place] Method of Transfer: EMS Departure-Patient Inst. Referrals: KARY MEHTA MD (PCP/Family) Primary Care Physician Copy Copies To 1: KARY MEHTA MD, JOSHUA T MD May 28, 2019 08:15 POS
[2019-05-28 08:20] LABS: BILIRUBIN,URINE NEGATIVE (NEGATIVE); CLARITY,URINE SL CLOUDY; COLOR,URINE YELLOW; GLUCOSE, URINE (UA) NEGATIVE (NEGATIVE); KETONES,URINE NEGATIVE (NEGATIVE); LEUKOCYTE ESTERASE ,URINE NEGATIVE (NEGATIVE); NITRITE,URINE NEGATIVE (NEGATIVE); PH,URINE 5.5 (5-9); PROTEIN,URINE NEGATIVE (NEGATIVE)
--- NOTE | 2019-05-28 08:58 | Diagnostic Imaging Report ---
EXAMINATION: Chest radiograph, portable AP view. DATE: 05/28/2019 7:28 AM hours. INDICATION: 78-year-old female, weakness. COMPARISON: April 18, 2019. FINDINGS: There is redemonstrated cardiomegaly. There is no identified pneumothorax. There is no large pleural effusion. There is no identified focal airspace consolidation. IMPRESSION: 1. Cardiomegaly without identified acute cardiopulmonary abnormality. Dictated by: Dictated on workstation # [id number]
[2019-05-28 09:08] LABS: BACTERIA,URINE LARGE /HPF; RBC,URINE RARE /HPF
[2019-05-28] MEDS ORDERED: NS IV 1000 ML 1,000 ML IV ONE (09:41)
[2019-05-28] MEDS ORDERED: cefTRIAXone FOR IV USE 1,000 MG in WATER (STERILE) FOR INJECTION 10 ML IV ONE (11:30)
[2019-05-28] MEDS ORDERED: predniSONE 20 MG TAB PO ONE (11:30)
[2019-05-28] MEDS ORDERED: MECLIZINE 25 MG (ANTIVERT) TAB PO ONE (11:30)
--- NOTE | 2019-05-28 12:35 | NUR ---
called and spoke with [facility] shift captain to notifiy him of transfer
--- NOTE | 2019-05-28 13:05 | NUR ---
dispatch called at this time
[2019-05-28 14:07] VITALS: BP 112/66
== END 2019-05-28 14:07 | disposition other institution (70) ==
LOC: EDUNIT# 06:24 → ER 06:25
DX: J44.1 Chronic obstructive pulmonary disease with (acute) exacerbation (principal); N39.0 Urinary tract infection, site not specified; R42 Dizziness and giddiness; M48.061 Spinal stenosis, lumbar region without neurogenic claudication; R53.1 Weakness; R09.02 Hypoxemia; R53.81 Other malaise; B37.49 Other urogenital candidiasis; D35.5 Benign neoplasm of carotid body; J45.909 Unspecified asthma, uncomplicated; I10 Essential (primary) hypertension; E78.00 Pure hypercholesterolemia, unspecified; I25.10 Atherosclerotic heart disease of native coronary artery without angina pectoris; E11.42 Type 2 diabetes mellitus with diabetic polyneuropathy; Z88.2 Allergy status to sulfonamides; Z85.42 Personal history of malignant neoplasm of other parts of uterus; Z88.5 Allergy status to narcotic agent; Z88.1 Allergy status to other antibiotic agents; Z88.8 Allergy status to other drugs, medicaments and biological substances; Z79.82 Long term (current) use of aspirin; Z79.4 Long term (current) use of insulin; Z87.891 Personal history of nicotine dependence; Z90.49 Acquired absence of other specified parts of digestive tract; Z90.89 Acquired absence of other organs; Z90.710 Acquired absence of both cervix and uterus
CPT/HCPCS: 36415; 36600; 51701; 71045; 80053; 81000; 82805; 82962; 83735; 85025; 87077; 87088; 87186; 96361; 96365; 96375

== ENCOUNTER 2019-07-03 19:57 | Inpatient (IN) | payer MEDICARE ==
[~2019-07-03] VITALS: Ht 162.9 cm; Wt 85.6 kg
[2019-07-03] MEDS ORDERED: methylPREDNISolone 125 MG (Solu-MEDROL) VIAL IV STA (20:12)
[2019-07-03] MEDS ORDERED: RT-ALBUTEROL SULF 2.5 MG/3 ML PRE-MIX VIAL INH STA ×2 (20:12→21:03)
--- NOTE | 2019-07-03 20:17 | ED General ---
General Chief Complaint: Respiratory Problems Stated Complaint: COUGH, CONGESTION, FEVER Source of Information: Patient Exam Limitations: No Limitations History of Present Illness Date Seen by Provider: Jul 03, 2019 Time Seen by Provider: 20:00 Initial Comments Here with report of cough and congestion with wheezing. Called EMS for dif ficulty breathing and they did note mid 80s and O2 saturation. They did start DuoNeb and that has brought her into the low 90s on O2 saturation. Apparently she is currently under treatment by Dr. Clay for pneumonia in the left upper lobe and she is on Levaquin. Patient denies nausea, vomiting, diarrhea. She has been coughing up sputum that has changed from brown to milky. She feels feverish. She has had her flu shot and apparently has had influenza B already the season. Timing/Duration: 1 Week, Getting Worse Severity: Moderate Associated Systoms: No Chest Pain; Cough, Fever/Chills; No Nausea/Vomiting; Shortness of Air; No Weakness Allergies and Home Medications Allergies Coded Allergies: Sulfa (Sulfonamide Antibiotics) (Unverified Allergy, Unknown, HIVES, SOB, 10/27/06) morphine (Unverified Allergy, Unknown, UNKNOWN, 10/27/06) propoxyphene (Unverified Allergy, Unknown, UNKNOWN, 10/27/06) erythromycin base (Unverified Adverse Reaction, Unknown, SICK TO HER STOMACH, CRAMPS, VOMITING, 10/27/06) Home Medications Albuterol Sulfate 2.5 Mg/3 Ml Vial.neb, 2.5 MG IH Q6H PRN for WHEEZING, (Re ported) Amlodipine Besylate 5 Mg Tablet, 5 MG PO DAILY, (Reported) Aspirin 81 Mg Tablet.dr, 81 MG PO DAILY, (Reported) Atenolol 25 Mg Tablet, 25 MG PO HS, (Reported) Cholecalciferol (Vitamin D3) 1,000 Unit Tablet, 2,000 UNIT PO DAILY, (Reported) take 2 (1000mg) tabs Diphenhydramine HCl 25 Mg Capsule, 50 MG PO HS, (Reported) Furosemide 20 Mg Tablet, 20 MG PO DAILY, (Reported) Hydrochlorothiazide 25 Mg Tablet, 25 MG PO HS, (Reported) Hydrocodone/Acetaminophen 1 Each Tablet, 1 EACH PO Q6H PRN for PAIN-MODERATE, (Reported) Insulin Aspart 100 Unit/1 Ml Susp, UNIT SQ DAILY 1700 PRN for HYPOGLYCEMIA, (Re ported) TAKES BLOOD SUGAR AND DEPENDING ON THAT READING ALONG WITH WHAT HER MEAL IS SHE USES A SLIDING SCALE Insulin Detemir 100 Unit/1 Ml Insuln.pen, 10 UNIT SQ 0700, (Reported) TAKES LEVEMIR AND NOVOLOG TOGETHER IN THE MORNING Losartan Potassium 25 Mg Tablet, 25 MG PO DAILY, (Reported) [place]-3/Dha/Epa/Fish Oil 1 Each Capsule, 1 EACH PO TID, (Reported) Oseltamivir Phosphate 75 Mg Cap, 75 MG PO BID Prescribed by: KARY CLAY on 04/22/19 1136 Pantoprazole Sodium 40 Mg Tablet.dr, 40 MG PO DAILY, (Reported) Ranolazine 1,000 Mg Tab.er.12h, 1,000 MG PO BID, (Reported) Rosuvastatin Calcium 10 Mg Tablet, 10 MG PO HS, (Reported) Spironolactone 25 Mg Tablet, 25 MG PO DAILY, (Reported) Patient Home Medication List Home Medication List Reviewed: Yes Review of Systems Review of Systems Constitutional: see HPI, chills, fever EENTM: nose congestion; No throat pain Respiratory: cough, short of breath, wheezing Cardiovascular: no symptoms reported Gastrointestinal: No abdominal pain, No nausea, No vomiting Genitourinary: no symptoms reported Musculoskeletal: no symptoms reported All Other Systems Reviewed Negative Unless Noted: Yes Past Jpnwugn-Tcfxuc-Ucchux Hx Past Med/Social Hx: Reviewed Nursing Past Med/Soc Hx Patient Social History Alcohol Use: Denies Use Recreational Drug Use: No Smoking Status: Former Smoker Type Used: Cigarettes Former Smoker, Quit: Mar 27, 1988 2nd Hand Smoke Exposure: No Recent Hopitalizations: Yes Physical Abuse: No Sexual Abuse: No Mistreated: No Fear: No Immunizations Up To Date Tetanus Booster (TDap): Unknown PED Vaccines UTD: Yes Date of Pneumonia Vaccine: November 01, 2008 Date of Influenza Vaccine: Apr 12, 2019 Seasonal Allergies Seasonal Allergies: No Past Medical History Surgeries: Yes Adenoidectomy, Appendectomy, Cardiac, Eye Surgery, Gallbladder, Hysterectomy, Oophorectomy, Orthopedic, Tonsillectomy Respiratory: Yes Asthma, COPD Cardiac: Yes Coronary Artery Disease, High Cholesterol, Hypertension Neurological: Yes (PERIPHERAL NEUROPATHY) Neuropathy Reproductive Disorders: Yes (ENDOMETRIAL CANCER--S/P HYST/BSO) 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 No Pertinent Family Hx Physical Exam-Suspected Sepsis Physical Exam Vital Signs Vital Signs - First Documented 07/03/19 20:10 Temp 36.3 Pulse 58 Resp 19 B/P (MAP) 120/80 (93) Pulse Ox 98 O2 Delivery Simple Mask Capillary Refill : Height, Weight, BMI Height: 5'4.00" Weight: 230lbs. 0.0oz. 104.046950bg; 35.00 BMI Method:Stated General Appearance: No Apparent Distress, WD/WN HEENT: PERRL/EOMI, Pharynx Normal Neck: Non Tender, Supple Respiratory: Decreased Breath Sounds, Expiration, Wheezing Cardiovascular: No Murmur, Tachycardia Gastrointestinal: Non Tender, Soft Back: Normal Inspection, No CVA Tenderness, No Vertebral Tenderness Extremity: Normal Range of Motion, Non Tender Neurologic/Psychiatric: Alert, Oriented x3 Skin: normal color, warm/dry Focused Exam Lactate Level 07/03/19 20:19: Lactic Acid Level 2.37*H Lactic Acid Level Laboratory Tests Test 07/03/19 20:19 Lactic Acid Level 2.37 MMOL/L (0.50-2.00) *H Progress/Results/Core Measures Suspected Sepsis SIRS Temperature: Pulse: Respiratory Rate: Laboratory Tests 07/03/19 20:03: White Blood Count 8.9 Blood Pressure / Mean: 07/03/19 20:19: Lactic Acid Level 2.37*H Laboratory Tests 07/03/19 20:03: Creatinine 1.08, INR Comment 1.0, Platelet Count 185, Total Bilirubin 0.5 Results/Orders Lab Results Laboratory Tests Test 07/03/19 20:03 07/03/19 20:19 Range/Units White Blood Count 8.9 4.3-11.0 10^3/uL Red Blood Count 4.39 4.35-5.85 10^6/uL Hemoglobin 15.0 11.5-16.0 G/DL Hematocrit 43 35-52 % Mean Corpuscular Volume 97 80-99 FL Mean Corpuscular Hemoglobin 34 25-34 PG Mean Corpuscular Hemoglobin Concent 35 32-36 G/DL Red Cell Distribution Width 12.5 10.0-14.5 % Platelet Count 185 130-400 10^3/uL Mean Platelet Volume 10.7 H 7.4-10.4 FL Neutrophils (%) (Auto) 76 H 42-75 % Lymphocytes (%) (Auto) 14 12-44 % Monocytes (%) (Auto) 10 0-12 % Eosinophils (%) (Auto) 0 0-10 % Basophils (%) (Auto) 0 0-10 % Neutrophils # (Auto) 6.8 1.8-7.8 X 10^3 Lymphocytes # (Auto) 1.2 1.0-4.0 X 10^3 Monocytes # (Auto) 0.9 0.0-1.0 X 10^3 Eosinophils # (Auto) 0.0 0.0-0.3 10^3/uL Basophils # (Auto) 0.0 0.0-0.1 10^3/uL Prothrombin Time 13.1 12.2-14.7 SEC INR Comment 1.0 0.8-1.4 Activated Partial Thromboplast Time 26 24-35 SEC Sodium Level 137 135-145 MMOL/L Potassium Level 3.9 3.6-5.0 MMOL/L Chloride Level 96 L 98-107 MMOL/L Carbon Dioxide Level 25 21-32 MMOL/L Anion Gap 16 H 5-14 MMOL/L Blood Urea Nitrogen 21 H 7-18 MG/DL Creatinine 1.08 0.60-1.30 MG/DL Estimat Glomerular Filtration Rate 49 BUN/Creatinine Ratio 19 Glucose Level 186 H 70-105 MG/DL Calcium Level 8.9 8.5-10.1 MG/DL Corrected Calcium 9.2 8.5-10.1 MG/DL Total Bilirubin 0.5 0.1-1.0 MG/DL Aspartate Amino Transf (AST/SGOT) 33 5-34 U/L Alanine Aminotransferase (ALT/SGPT) 22 0-55 U/L Alkaline Phosphatase 51 40-136 U/L Total Protein 6.4 6.4-8.2 GM/DL Albumin 3.6 3.2-4.5 GM/DL Lactic Acid Level 2.37 *H 0.50-2.00 MMOL/L Micro Results Microbiology 07/03/19 Influenza Types A,B Antigen ([facility]AYLEY) - Final, Complete My Orders Orders - SASCHA QUIJANO MD Cbc With Automated Diff (07/03/19 20:12) Comprehensive Metabolic Panel (07/03/19 20:12) Blood Culture (07/03/19 20:12) Sputum Culture (07/03/19 20:12) Urinalysis (07/03/19 20:12) Urine Culture (07/03/19 20:12) Protime With Inr (07/03/19 20:12) Partial Thromboplastin Time (07/03/19 20:12) Chest 1 View, Ap/Pa Only (07/03/19 20:12) Vital Signs Adult Sepsis Patie Q15M (07/03/19 20:12) O2 (07/03/19 20:12) Remove Rings In Anticipation O (07/03/19 20:12) Lactic Acid Analyzer (07/03/19 20:12) Influenza A And B Antigens (07/03/19 20:12) Albuterol Pre-Mix Nebs (Rt) (Proventil (07/03/19 20:12) Methylprednisolone Sod Succ (Solu-Medrol (07/03/19 20:12) Svn Small Volume Nebulizer (07/03/19 20:12) Albuterol Pre-Mix Nebs (Rt) (Proventil (07/03/19 21:03) Ipratropium 0.02% Neb Solution (Atrovent (07/03/19 21:15) Svn Small Volume Nebulizer (07/03/19 21:03) Svn Small Volume Nebulizer (07/03/19 21:03) Hydrocodone/Apap 10/325 Tablet (Lortab 1 (07/03/19 21:37) Ed Iv/Invasive Line Start (07/03/19 21:38) Lactated Ringers (Lr 1000 Ml Iv Solution (07/03/19 21:38) Cefepime Injection (Maxipime Injection) (07/03/19 22:00) Medications Given in ED Current Medications Medications Dose Ordered Sig/Deepika Route Start Time Stop Time Status Last Admin Dose Admin Ipratropium [place] 0.5 mg ONCE ONCE IH 07/03/19 21:15 07/03/19 21:16 DC 07/03/19 21:50 0.5 MG Lactated Ringer's 1,000 ml @ 0 mls/hr Q0M ONCE IV 07/03/19 21:38 07/03/19 21:39 DC 07/03/19 21:46 0 MLS/HR Vital Signs/I&O 07/03/19 07/03/19 20:10 20:14 Temp 36.3 Pulse 58 Resp 19 B/P (MAP) 120/80 (93) Pulse Ox 98 97 O2 Delivery Simple Mask Room Air Capillary Refill : Progress Note : Progress Note Seen and evaluated. Sepsis protocol initiated. DuoNeb currently in progress that was initiated by EMS. We will give 3 [id number]-vjtf albuterol treatments as patient is very tight and has moderate wheezing. We will check influenza. Monitor patient. 2147: Patient's found to have right lower lobe pneumonia still present. She is currently requiring oxygen at 3 L/m via nasal cannula to keep O2 saturations at 92-93%. We have initiated continuous hour-long treatment. I did give her hydrocodone/APAP for her chronic back pain. Cefepime 2 g IV has been initiated. All findings and concerns were discussed with the patient and family who agreed with the plan. Daughter and patient were interested in pursuing inpatient rehabilitation if possible at the end of this hospitalization because she has had increasing weakness and generalized decline. They state that she usually does better after rehabilitation. I have asked them to discuss that with Dr. Clay as well. I did discuss the case with Dr. Weinberg, on-call for [facility] and he accepts patient for admission, inpatient status for Dr. Clay. Patient does have findings of sepsis with elevated lactic acid slightly. I do believe lactic acid elevation is more a byproduct of hypoxia and less product of sepsis related etiology. We did give LR 1 L bolus and I will continue gentle hydration currently. Diagnostic Imaging Diagonstic Imaging: Xray Plain Films/CT/US/NM/MRI: chest Comments NAME: BENIGNO KUMAR MED REC#: [id number] PT STATUS: REG ER : 1940 PHYSICIAN: SASCHA QUIJANO MD ADMIT DATE: 07/03/19/ER Draft Date of Exam:07/03/19 CHEST 1 VIEW, AP/PA ONLY EXAM: Chest 1 view, AP/PA only. INDICATION: Cough. Dyspnea. COMPARISON: 05/28/2019. FINDINGS: Cardiomegaly. Normal central pulmonary vascularity. Mild atelectasis or infiltrate in the right lung base. Tiny right pleural effusion. No pneumothorax. IMPRESSION: 1. Mild atelectasis and/or infiltrate in the right lung base with a tiny right pleural effusion that is new since the prior exam. 2. Stable cardiomegaly with normal central pulmonary vascularity. Dictated on workstation # [id number] Dict: 07/03/[id number] Trans: 07/03/192138 [facility] [id number] Interpreted by: EAMON FU MD Electronically signed by: Departure Impression Primary Impression: Right lower lobe pneumonia Qualified Codes: J18.1 - Lobar pneumonia, unspecified organism Disposition: ADMITTED INPATIENT Condition: Stable Admissions Decision to Admit Reason: Admit from ER (General) Decision to Admit/Date: Jul 03, 2019 Time/Decision to Admit Time: 21:48 Departure-Patient Inst. Referrals: KARY CLAY MD (PCP/Family) Primary Care Physician SASCHA QUIJANO MD Jul 03, 2019 20:17
[2019-07-03 20:18] LABS: BASOPHILS % (AUTO) 0 % (0-10); EOSINOPHILS % (AUTO) 0 % (0-10); HEMATOCRIT 43 % (35-52); LYMPHOCYTES # (AUTO) 1.2 X 10^3 (1.0-4.0); LYMPHOCYTES % (AUTO) 14 % (12-44); MEAN CORPUSCULAR HEMOGLOBIN 34 PG (25-34); MEAN CORPUSCULAR HGB CONC 35 G/DL (32-36); MEAN CORPUSCULAR VOLUME 97 FL (80-99); MEAN PLATELET VOLUME 10.7 FL (7.4-10.4); MONOCYTES # (AUTO) 0.9 X 10^3 (0.0-1.0); MONOCYTES % (AUTO) 10 % (0-12); NEUTROPHILS # (AUTO) 6.8 X 10^3 (1.8-7.8); NEUTROPHILS % (AUTO) 76 % (42-75); PLATELET COUNT 185 10^3/uL (130-400); RED CELL DISTRIBUTION WIDTH 12.5 % (10.0-14.5); WHITE BLOOD COUNT 8.9 10^3/uL (4.3-11.0)
[2019-07-03 20:34] LABS: ALBUMIN 3.6 GM/DL (3.2-4.5); BILIRUBIN,TOTAL 0.5 MG/DL (0.1-1.0); CALCIUM 8.9 MG/DL (8.5-10.1); CREATININE SERUM 1.08 MG/DL (0.60-1.30); POTASSIUM 3.9 MMOL/L (3.6-5.0); TOTAL PROTEIN 6.4 GM/DL (6.4-8.2)
[2019-07-03 20:36] LABS: PROTHROMBIN TIME PATIENT 13.1 SEC (12.2-14.7)
[2019-07-03] MEDS ORDERED: RT-IPRATROPIUM (ATROVENT) 0.5MG/2.5ML AMP IH ONE (21:15)
[2019-07-03] MEDS ORDERED: HYDROcodone/APAP 10 MG/325 MG (LORTAB) TAB PO STA (21:37)
[2019-07-03] MEDS ORDERED: LACTATED RINGERS 1,000 ML IV ONE (21:38)
--- NOTE | 2019-07-03 21:39 | Diagnostic Imaging Report ---
EXAM: Chest 1 view, AP/PA only. INDICATION: Cough. Dyspnea. COMPARISON: 05/28/2019. FINDINGS: Cardiomegaly. Normal central pulmonary vascularity. Mild atelectasis or infiltrate in the right lung base. Tiny right pleural effusion. No pneumothorax. IMPRESSION: 1. Mild atelectasis and/or infiltrate in the right lung base with a tiny right pleural effusion that is new since the prior exam. 2. Stable cardiomegaly with normal central pulmonary vascularity. Dictated by: Dictated on workstation # [id number]
[2019-07-03 21:57] VITALS: BP 111/76
[2019-07-03] MEDS ORDERED: CEFEPIME INJECTION 2,000 MG in WATER (STERILE) FOR INJECTION 20 ML IV ONE (22:00)
--- NOTE | 2019-07-03 22:50 | NUR ---
BENIGNO KUMAR admitted to room 428-1, with an admitting diagnosis of PNA,COPD, on 07/03/19 from ED via [facility], accompanied by STAFF AND FAMILY.BENIGNO KUMAR introduced to surroundings, call light, bed controls, phone, TV, temperature control, lights, meal times, smoking policy, visitor policy, side rail policy, bathrooms and showers. Patient Rights given to patient in the handbook. BENIGNO KUMAR verbalizes understanding that [facility] is not responsible for the loss or damage to any personal effects or valuables that are kept in the patients posession during their hospitalization. BENIGNO KUMAR verbalizes understanding of Interdisciplinary Patient Education. Patient and/or family were informed about the Rapid Response Team and its purpose.
[2019-07-03 23:05] VITALS: BP 133/60
[2019-07-03] MEDS ORDERED: LACTATED RINGERS 1,000 ML IV SCH (23:15)
[2019-07-03] MEDS ORDERED: ONDANSETRON 4 MG/2 ML (SDV) Z0FRAN IV PRN (23:15)
[2019-07-03 23:17] VITALS: BP 133/60
--- NOTE | 2019-07-03 23:25 | NUR ---
ALBUTEROl BID and then PRN. RT to assess or reevaluate in 72 hours or as needed. O2 to keep sat greater than 90%. Addendum: 07/03/19 at 2326 by SOFIE SUAREZ RT Amended: Links added.
[2019-07-04] VITALS (8 sets, daily range): BP systolic 115–130; BP diastolic 55–62
[2019-07-04] MEDS: methylPREDNISolone 40 MG/ML (Solu-MEDROL) VIAL IV SCH ×5 (00:22→23:47)
[2019-07-04] MEDS ORDERED: RT-ALBUTEROL/IPRATROPIUM 3 ML (DUONEB) VIAL INH PRN (03:00)
[2019-07-04] MEDS ORDERED: RT-ALBUTEROL/IPRATROPIUM 3 ML (DUONEB) VIAL ONE (03:05)
[2019-07-04 04:24] LABS: BASOPHILS % (AUTO) 0 % (0-10); EOSINOPHILS % (AUTO) 0 % (0-10); HEMATOCRIT 39 % (35-52); HEMOGLOBIN 13.8 G/DL (11.5-16.0); LYMPHOCYTES # (AUTO) 0.5 X 10^3 (1.0-4.0); LYMPHOCYTES % (AUTO) 8 % (12-44); MEAN CORPUSCULAR HEMOGLOBIN 34 PG (25-34); MEAN CORPUSCULAR HGB CONC 35 G/DL (32-36); MEAN CORPUSCULAR VOLUME 97 FL (80-99); MEAN PLATELET VOLUME 9.8 FL (7.4-10.4); MONOCYTES # (AUTO) 0.1 X 10^3 (0.0-1.0); MONOCYTES % (AUTO) 1 % (0-12); NEUTROPHILS # (AUTO) 5.3 X 10^3 (1.8-7.8); NEUTROPHILS % (AUTO) 91 % (42-75); PLATELET COUNT 137 10^3/uL (130-400); RED CELL DISTRIBUTION WIDTH 11.7 % (10.0-14.5); WHITE BLOOD COUNT 5.8 10^3/uL (4.3-11.0)
[2019-07-04 04:44] LABS: ALBUMIN 3.3 GM/DL (3.2-4.5); BILIRUBIN,TOTAL 0.5 MG/DL (0.1-1.0); CALCIUM 8.7 MG/DL (8.5-10.1); CREATININE SERUM 1.03 MG/DL (0.60-1.30); POTASSIUM 3.7 MMOL/L (3.6-5.0); TOTAL PROTEIN 5.4 GM/DL (6.4-8.2)
[2019-07-04] MEDS: inSUlin ASPART (NovoLOG) 1 UNIT/0.01 ML (CHARGE PER UNIT) SC SCH ×4 (05:38→19:43)
[2019-07-04 06:08] LABS: LYMPHOCYTES % (MANUAL) 5 %; MONOCYTES % (MANUAL) 1 %; NEUTROPHILS % (MANUAL) 94 %
[2019-07-04] MEDS: RT-ALBUTEROL/IPRATROPIUM 3 ML (DUONEB) VIAL INH SCH ×5 (07:16→22:34)
[2019-07-04] MEDS ORDERED: RT-ALBUTEROL SULF 2.5 MG/3 ML PRE-MIX VIAL INH SCH (08:00)
[2019-07-04] MEDS: HYDROcodone/APAP 7.5 MG/325 MG (LORTAB, LORCET PLUS) TABLET PO PRN ×2 (08:31→18:25)
--- NOTE | 2019-07-04 08:51 | History & Physical ---
History of Present Illness History of Present Illness Reason for visit/HPI PT IS A 78 Y/O FEMALE WHO IS WELL KNOWN TO ME FROM CLINIC. SHE HAD BEEN TREATED FOR PNEUMONIA, HAS HAD SOME CLEARING OF HER SYMPTOMS, THEN THEY RETURNED WITH WORSENING COUGH, CONGESTION AND SHE WAS BROUGHT TO THE ER WHERE SHE WAS FOUND TO HAVE LOW OXYGEN IN THE 80'S, SHE WAS GIVEN TREATMENT, PLACED ON OXYGEN AND HER O2 SATS IMPROVED TO THE LOW 90'S. Date of Admission Jul 03, 2019 at 21:46 I consulted on this patient on 07/04/19 08:49 Attending Physician Kary Clay MD Admitting Physician Kary Clay MD Consult Allergies and Home Medications Allergies Coded Allergies: Sulfa (Sulfonamide Antibiotics) (Unverified Allergy, Unknown, HIVES, SOB, 10/27/06) morphine (Unverified Allergy, Unknown, UNKNOWN, 10/27/06) propoxyphene (Unverified Allergy, Unknown, UNKNOWN, 10/27/06) erythromycin base (Unverified Adverse Reaction, Unknown, SICK TO HER [facility], CRAMPS, VOMITING, 10/27/06) Home Medications Albuterol Sulfate 2.5 Mg/3 Ml Vial.neb, 2.5 MG IH Q6H PRN for WHEEZING, (Reported) Amlodipine Besylate 5 Mg Tablet, 5 MG PO DAILY, (Reported) Aspirin 81 Mg Tablet.dr, 81 MG PO DAILY, (Reported) Atenolol 25 Mg Tablet, 25 MG PO HS, (Reported) Cholecalciferol (Vitamin D3) 1,000 Unit Tablet, 2,000 UNIT PO DAILY, (Reported) take 2 (1000mg) tabs Diphenhydramine HCl 25 Mg Capsule, 50 MG PO HS, (Reported) Furosemide 20 Mg Tablet, 20 MG PO DAILY, (Reported) Hydrochlorothiazide 25 Mg Tablet, 25 MG PO HS, (Reported) Hydrocodone/Acetaminophen 1 Each Tablet, 1 EACH PO Q6H PRN for PAIN-MODERATE, (Reported) Insulin Aspart 100 Unit/1 Ml Susp, UNIT SQ DAILY 1700 PRN for HYPOGLYCEMIA, (Reported) TAKES BLOOD SUGAR AND DEPENDING ON THAT READING ALONG WITH WHAT HER MEAL IS SHE USES A SLIDING SCALE Insulin Detemir 100 Unit/1 Ml Insuln.pen, 10 UNIT SQ 0700, (Reported) TAKES LEVEMIR AND NOVOLOG TOGETHER IN THE MORNING Losartan Potassium 25 Mg Tablet, 25 MG PO DAILY, (Reported) [place]-3/Dha/Epa/Fish Oil 1 Each Capsule, 1 EACH PO TID, (Reported) Oseltamivir Phosphate 75 Mg Cap, 75 MG PO BID Prescribed by: KARY CLAY on 04/22/19 1136 Pantoprazole Sodium 40 Mg Tablet.dr, 40 MG PO DAILY, (Reported) Ranolazine 1,000 Mg Tab.er.12h, 1,000 MG PO BID, (Reported) Rosuvastatin Calcium 10 Mg Tablet, 10 MG PO HS, (Reported) Spironolactone 25 Mg Tablet, 25 MG PO DAILY, (Reported) Past Ooymdmd-Upnebw-Prbmcu Hx Past Med/Social Hx: Reviewed Nursing Past Med/Soc Hx Patient Social History Alcohol Use: Denies Use Recreational Drug Use: No Smoking Status: Former Smoker Former Smoker, Quit: Mar 27, 1988 Type Used: Cigarettes 2nd Hand Smoke Exposure: No Recent Foreign Travel: No Contact w/other who traveled: No Recent Hopitalizations: Yes Recent Infectious Disease Expo: No Immunizations Up To Date Tetanus Booster (TDap): Unknown Pediatric: Yes Date of Pneumonia Vaccine: November 01, 2008 Date of Influenza Vaccine: Apr 12, 2019 Seasonal Allergies Seasonal Allergies: No Past Medical History Surgeries: Adenoidectomy, Appendectomy, Cardiac, Eye Surgery, Gallbladder, Hysterectomy, Oophorectomy, Orthopedic, Tonsillectomy Cardiac: Coronary Artery Disease, High Cholesterol, Hypertension Neurological: Neuropathy Reproductive: Yes (ENDOMETRIAL CANCER--S/P HYST/BSO) Hysterectomy, Menopausal Gastrointestinal: Hepatitis, Ulcer Musculoskeletal: Degenerate Disk Disease, Arthritis, Back Injury, Chronic Back Pain Endocrine: Diabetes, Insulin dep HEENT: Cataract Loss of Vision: Denies Hearing Impairment: Denies Cancer: Uterine Did You Recieve Any Treatments: Yes What Type of Treatment Did You: Surgical Intervention History of Blood Disorders: No Family History Reviewed Nursing Family Hx Patient reports no known family medical history. No Pertinent Family Hx Physical Exam Vital Signs Vital Signs - First Documented 07/03/19 07/03/19 07/03/19 20:10 21:54 21:56 Temp 36.3 Pulse 58 Resp 19 B/P (MAP) 120/80 (93) Pulse Ox 98 O2 Delivery Simple Mask O2 Flow Rate 3.00 FiO2 100 Capillary Refill : Less Than 3 Seconds Height, Weight, BMI Height: 5'4.00" Weight: 230lbs. 0.0oz. 104.546682ta; 32.25 BMI Method:Stated Assessment/Plan Assessment and Plan PNEUMONIA GENERALIZED WEAKNESS HYPERTENSION DIABETES MELLITUS Admission Diagnosis Admission Status: Inpatient Order (span 2 midnights) Reason for Inpatient Admission: INPT ADMISSION FOR PNEUMONIA - WILL REQUIRE AT LEAST 2-3 DAYS Clinical Quality Measures DVT/VTE Risk/Contraindication: Risk Factor Score Per Nursin RFS Level Per Nursing on Admit: 4+=Very High KARY CLAY MD Jul 04, 2019 08:51
[2019-07-04] MEDS ORDERED: INSU100V5 SQ (09:20)
[2019-07-04] MEDS ORDERED: RANO10004 PO (09:20)
[2019-07-04] MEDS ORDERED: INSU100V5 SC (09:20)
[2019-07-04] MEDS ORDERED: LEVO500T80 PO (09:20)
[2019-07-04] MEDS ORDERED: PROM5SYR PO (09:20)
[2019-07-04] MEDS ORDERED: ALBU18HF2 INH (09:20)
[2019-07-04] MEDS ORDERED: DIPH25CA45 PO (09:20)
[2019-07-04] MEDS ORDERED: PRD10T PO (09:20)
[2019-07-04] MEDS ORDERED: CHOL200059 PO (09:20)
--- NOTE | 2019-07-04 09:28 | NUR ---
WENT OVER THE EXT MED HX WELL THE PATIENTS BOTTLES IN THE ROOM WITH THE PATIENT AND HER DAUGHTER. THEY VERIFIED HOW SHE TAKES EACH MEDICATION.
--- NOTE | 2019-07-04 09:40 | NUR ---
Dr. Clay notified at this time of critical lactic acid level 5.66
[2019-07-04] MEDS ORDERED: NS IV 1000 ML 1,000 ML IV SCH (10:06)
[2019-07-04] MEDS: NS IV 1000 ML 1,000 ML IV SCH ×3 (10:53→20:35)
--- NOTE | 2019-07-04 12:04 | NUR ---
Dr. Clay notified of critical lactic acid 2.85.
--- NOTE | 2019-07-04 12:42 | NUR ---
CM/SS visited with patient and Yomaira (daughter) per their request. The patient and her daughter wanted to speak with a social work manager about discharge planning. The patient verbalized that she has went to the inpatient rehab in the past and felt like she got a lot stronger and better. She wishes to return there. A IRF evaluation has been put in by the physician. CM/SS discussed alternative options such as long-term if it was appropriate. The patient and daughter verbalized understanding. CM/SS also discussed home health as an option. The patient and family willing to utilize these options if necessary. CM/SS will continue to follow for discharge planning.
--- NOTE | 2019-07-04 14:02 | Physical Therapy Evaluation ---
PT Evaluation-General Medical Diagnosis Admission Date Jul 03, 2019 at 21:46 Medical Diagnosis: COPD/Pneumonia Onset Date: Jun 27, 2019 Therapy Diagnosis Therapy Diagnosis: Debility/deconditioning Height/Weight Height (Feet): 5 Height (Inches): 4.00 Weight (Pounds): 230 Weight (Ounces): 0.0 Precautions Precautions/Isolations: Fall Prevention, Standard Precautions Referral Physician: Obed Reason for Referral: Evaluation/Treatment Medical History Pertinent Medical History: CAD, COPD, DM, HTN, Neuropathy, OA, Smoking (quit 1987) Additional Medical History Asthma, hepatitis, degenerative disk disease, uterine cancer Current History Patient presented to the ER with cough, congestion, and wheezing for 1 wk. Reviewed History: Yes Social History Home: Single Level Current Living Status: Spouse Entry Into Home: Level Entry Prior Prior Level of Function SCALE: Activities may be completed with or without assistive devices. 6-Wdpzauiwhh-dnvfxxp completes the activity by him/herself with no assistance from a helper. 5-Set-up or Clean-up Assistance-helper sets up or cleans up; patient completes activity. [place] assists only prior to or following the activity. 4-Supervision or Touching Assistance-helper provides verbal cues and/or touching/steadying and/or contact guard assistance as patient completes activity. Assistance may be provided throughout the activity or intermittently. 3-Partial/Moderate Assistance-helper does LESS THAN HALF the effort. [place] lifts, holds or supports trunk or limbs, but provides less than half the effort. 2-Substantial/Maximal Assistance-helper does MORE THAN HALF the effort. [place] l ifts or holds trunk or limbs and provides more than half the effort. 3-Ovsadvroc-empyny does ALL the effort. Patient does none of the effort to complete the activity. Or, the assistance of 2 or more helpers is required for the patient to complete the activity. If activity was not attempted, code reason: 7-Patient Refused. 9-Not Applicable-not attempted and the patient did not perform the activity before the current illness, exacerbation or injury. 10-Not Attempted due to Environmental Limitations-(lack of equipment, weather restraints, etc.). 88-Not Attempted due to Medical Conditions or Safety Concerns. Bed Mobility: 6 Transfers (B,C,W/C): 6 Gait: 6 Indoor Mobility (Ambulation): Independent Prior Devices Use: Walker ambulates short distances only PLOF 50-75' PT Evaluation-Current Subjective Patient is agreeable to therapy. Patient states that she is going to try her best but she doesn't know how much she will be able to do at this time because she is very weak. Objective Patient Orientation: Person, Place, Time, Situation Attachments: IV ROM/Strength ROM Lower Extremities AROM limited due to weakness. Strength Lower Extremities 3/5 BLE Integumentary/Posture Integumentary See nursing notes. Bowel Incontinence: No Bladder Incontinence: No Neuromuscular (Tone, Coordination, Reflexes) Grossly intact. Sensory Vision: Functional Hearing: Functional Sensation Right Lower Extremit: Intact Sensation Left Lower Extremity: Intact Transfers Roll Left to Right (QC): 6 Lying to Sitting/Side of Bed(Q: 3 Sit to Stand (QC): 3 Chair/Cqw-ye-Gowml Xfer(QC): 3 Gait Does the Patient Walk?: No and Walking Goal IS indicated Wheelchair Training Does the Pt Use a Wheelchair?: No Balance Sitting Static: Good Sitting Dynamic: Good Standing Static: Fair Standing Dynamic: Fair Treatment Patient performed 4 sit to stand transfers from recliner to strengthen BLE. Assessment/Needs Patient has weak BLE that is preventing patient from doing as much as she would like. Patient was unable to safely ambulate at this time due to weakness and patient fatigue. Rehab Potential: Fair PT Residential Goals Food Manager Goals PT Residential Goals Time Frame: Jul 11, 2019 Roll Left & Right (QC): 6 Sit to Lying (QC): 6 Lying-Sitting on Side/Bed(QC): 6 Sit to Stand (QC): 6 Chair/Bcg-vs-Axpnl Xfer(QC): 6 Toilet Transfer (QC): 6 Does the Patient Walk: Yes Walk 10 feet (QC): 4 Walk 50ft with 2 Turns (QC): 4 Does the Pt use WC or Scooter?: No PT Plan Problem List Problem List: Activity Tolerance, Functional Strength, Safety, Balance, Gait, Transfer, Bed Mobility, ROM Treatment/Plan Treatment Plan: Continue Plan of Care Treatment Plan: Bed Mobility, Education, Functional Activity Arabella, Functional Strength, Gait, Safety, Therapeutic Exercise, Transfers Treatment Duration: Jul 11, 2019 Frequency: 6 times per week Estimated Hrs Per Day: .25 hour per day Patient and/or Family Agrees t: Yes Safety Risks/Education Patient Education: Transfer Techniques Teaching Recipient: Patient Teaching Methods: Discussion Response to Teaching: Reinforcement Needed Time/GCodes Time In: 1320 Time Out: 1344 Total Billed Treatment Time: 24 Total Billed Treatment 1 visit EVM (14 minutes) FA (10 minutes) OLAMIDE ORTEGA PT Jul 04, 2019 14:02
--- NOTE | 2019-07-04 15:15 | Occupational Therapy Eval ---
OT Evaluation-General/PLF Medical Diagnosis Admission Date Jul 03, 2019 at 21:46 Medical Diagnosis: COPD/Pneumonia Onset Date: Jun 27, 2019 Therapy Diagnosis Therapy Diagnosis: decreased self care skills Height/Weight Height (Feet): 5 Height (Inches): 4.00 Weight (Pounds): 230 Weight (Ounces): 0.0 Precautions Precautions/Isolations: Fall Prevention, Standard Precautions Referral Physician: Obed Medical History Pertinent Medical History: CAD, COPD, DM, HTN, Neuropathy, OA, Smoking (quit 1987) Additional Medical History high cholesterol, endometrial cancer, hepatitis, DDD, arthritis, chronic back pain, Reviewed History: Yes Social History Home: Single Level Current Living Status: Spouse Entry Into Home: Level Entry ADL-Prior Level of Function SCALE: Activities may be completed with or without assistive devices. 3-Pdmegmvrsv-fusdeyl completes the activity by him/herself with no assistance from a helper. 5-Set-up or Clean-up Assistance-helper sets up or cleans up; patient completes activity. [place] assists only prior to or following the activity. 4-Supervision or Touching Assistance-helper provides verbal cues and/or touching/steadying and/or contact guard assistance as patient completes activity. Assistance may be provided throughout the activity or intermittently. 3-Partial/Moderate Assistance-helper does LESS THAN HALF the effort. [place] lifts, holds or supports trunk or limbs, but provides less than half the effort. 2-Substantial/Maximal Assistance-helper does MORE THAN HALF the effort. [place] lifts or holds trunk or limbs and provides more than half the effort. 6-Giwrznakc-kcxuod does ALL the effort. Patient does none of the effort to complete the activity. Or, the assistance of 2 or more helpers is required for the patient to complete the activity. If activity was not attempted, code reason: 7-Patient Refused. 9-Not Applicable-not attempted and the patient did not perform the activity before the current illness, exacerbation or injury. 10-Not Attempted due to Environmental Limitations-(lack of equipment, weather restraints, etc.). 88-Not Attempted due to Medical Conditions or Safety Concerns. ADL PLOF Comments Pt states she and her have a caregiver who has been assisting her with bathing, dressing, housework. Pt states she walks with a walker and has been receiving home health PT. Self Care: Needed Some Help Functional Cognition: Needed Some Help DME/Equipment: Bath Chair, Bedside Commode, Grab Bars, Shower OT Current Status Subjective Pt sitting in chair, agrees to therapy. Mental Status/Objective Patient Orientation: Person, Place, Situation Attachments: IV Current Glasses/Contacts: Yes (reading) Hearing Aids: No Dentures/Partials: No Hand Dominance: Right Upper Extremity ROM grossly WFL Upper Extremity Coordination Fair Upper Extremity Strength generalized weakness ADL-Treatment ADL-Current Pt participated in UE assessment while seated in chair. Pt states she is fatigued this afternoon. Pt's meal is present and pt requires assist to open packets secondary to decreased coordination, but is then able to feed herself. Education provided regarding role of therapy and plan of care. Pt states understanding of education and is in agreement with plan. Pt sitting in chair with needs met after session. 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 2=Patient will verbalize/demonstrate understanding of assistive devices/modifications for ADL. 3=Patient will improve strength/tolerance for activity to enable patient to perform ADL's. OT Education/Plan Problem List/Assessment Assessment: Decreased Activ Tolerance, Dependent Transfers, Impaired Funct Balance, Impaired I ADL's, Impaired Self-Care Skills Pt to benefit from skilled OT intervention for ADL training, transfers, strengthening, and safety education to increase level of independence and allow safe discharge plan. Discharge Recommendations Plan/Recommendations: Continue POC Treatment Plan/Plan of Care Treatment,Training & Education: Yes Patient would benefit from OT for education, treatment and training to promote independence in ADL's, mobility, safety and/or upper extremity function for ADL's. Plan of Care: ADL Retraining, Functional Mobility, UE Funct Exercise/Act Treatment Duration: Jul 11, 2019 Frequency: 5 times per week Estimated Hrs Per Day: .25 hour per day Rehab Potential: Fair Time/GCodes Start Time: 14:44 Stop Time: 15:04 Total Time Billed (hr/min): 20 Billed Treatment Time 1 visit, MARY(20minutes) KILLIAN MACIAS OT Jul 04, 2019 15:15
--- NOTE | 2019-07-04 16:01 | Pulmonary Consultation ---
History of Present Illness History of Present Illness Date Seen by Provider: Jul 04, 2019 Time Seen by Provider: 15:59 Date of Admission Allergies and Home Medications Allergies Coded Allergies: Sulfa (Sulfonamide Antibiotics) (Unverified Allergy, Unknown, HIVES, SOB, 10/27/06) morphine (Unverified Allergy, Unknown, UNKNOWN, 10/27/06) propoxyphene (Unverified Allergy, Unknown, UNKNOWN, 10/27/06) erythromycin base (Unverified Adverse Reaction, Unknown, SICK TO HER STOMACH, CRAMPS, VOMITING, 10/27/06) Home Medications Albuterol Sulfate 2.5 Mg/3 Ml Vial.neb, 2.5 MG IH QID PRN for SHORTNESS OF BREATH, (Reported) Albuterol Sulfate 18 Gm Hfa.aer.ad, 2 PUFF INH Q4H PRN for SHORTNESS OF BREATH, (Reported) Amlodipine Besylate 5 Mg Tablet, 5 MG PO DAILY, (Reported) Aspirin 81 Mg Tablet.dr, 81 MG PO DAILY, (Reported) Atenolol 25 Mg Tablet, 25 MG PO HS, (Reported) Cholecalciferol (Vitamin D3) 2,000 Unit Tablet, 2,000 UNIT PO DAILY, (Reported) Diphenhydramine HCl 25 Mg Capsule, 50 MG PO HS, (Reported) TAKES 2 (25MG) CAPSULES Furosemide 20 Mg Tablet, 20 MG PO DAILY, (Reported) Hydrochlorothiazide 25 Mg Tablet, 25 MG PO HS, (Reported) Hydrocodone/Acetaminophen 1 Each Tablet, 1 TAB PO Q6H PRN for PAIN-MODERATE, (Reported) Insulin Aspart 100 Unit/1 Ml Susp, 20 UNIT SQ DAILY, (Reported) Insulin Determir 1,000 Units/10 Ml Soln, 10 UNITS SC DAILY, (Reported) Insulin Determir 1,000 Units/10 Ml Soln, 15-20 UNITS SQ HS, (Reported) Levofloxacin 500 Mg Tablet, 500 MG PO Q48H, (Reported) #5 TABLETS FILLED 1-20 Losartan Potassium 25 Mg Tablet, 25 MG PO DAILY, (Reported) Pantoprazole Sodium 40 Mg Tablet.dr, 40 MG PO DAILY, (Reported) Prednisone 10 Mg Tab, PO UD, (Reported) TAKE 6 TABS DAY 1 TAKE 5 TABS DAY 2 TAKE 4 TABS DAY 3 TAKE 3 TABS DAY 4 TAKE 2 TABS DAY 5 TAKE 1 TAB DAY 6 FILLED 1-15-20 Promethazine HCl/Codeine 5 Ml Syrup, 5-10 ML PO Q6H PRN for COUGH, (Reported) Ranolazine 1,000 Mg Tab.er.12h, 1,000 MG PO BID, (Reported) Rosuvastatin Calcium 10 Mg Tablet, 10 MG PO HS, (Reported) Spironolactone 25 Mg Tablet, 25 MG PO DAILY, (Reported) Past Tyoafir-Ojzicb-Tvqboi Hx Past Med/Social Hx: Reviewed Nursing Past Med/Soc Hx Patient Social History Alcohol Use: Denies Use Recreational Drug Use: No Smoking Status: Former Smoker Type Used: Cigarettes Former Smoker, Quit: Mar 27, 1988 2nd Hand Smoke Exposure: No Recent Foreign Travel: No Contact w/Someone Who Travel: No Recent Infectious Disease Expo: No Recent Hopitalizations: Yes Physical Abuse: No Sexual Abuse: No Mistreated: No Fear: No Immunizations Up To Date Tetanus Booster (TDap): Unknown PED Vaccines UTD: Yes Date of Pneumonia Vaccine: November 01, 2008 Date of Influenza Vaccine: Apr 12, 2019 Seasonal Allergies Seasonal Allergies: No Past Medical History Surgeries: Yes Adenoidectomy, Appendectomy, Cardiac, Eye Surgery, Gallbladder, Hysterectomy, Oophorectomy, Orthopedic, Tonsillectomy Respiratory: Yes Asthma, COPD Cardiac: Yes Coronary Artery Disease, High Cholesterol, Hypertension Neurological: Yes (PERIPHERAL NEUROPATHY) Neuropathy : No Reproductive Disorders: Yes (ENDOMETRIAL CANCER--S/P HYST/BSO) 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 No Pertinent Family Hx Sepsis Event Evaluation Height, Weight, BMI Height: 5'4.00" Weight: 230lbs. 0.0oz. 104.891713tm; 32.25 BMI Method:Stated Exam Exam Vital Signs Date Time Temp Pulse Resp B/P (MAP) Pulse Ox O2 Delivery O2 Flow Rate FiO2 07/04/19 15:25 92 Nasal Cannula 2.00 07/04/19 15:21 85 Room Air 07/04/19 12:00 36.2 67 20 130/60 (83) 93 Room Air 07/04/19 10:29 94 Room Air 07/04/19 10:09 36.4 60 20 119/55 (76) 90 Room Air 07/04/19 08:00 36.0 60 20 119/55 (76) 90 Room Air 07/04/19 08:00 94 Room Air 0.50 100 07/04/19 07:16 95 Nasal Cannula 0.50 07/04/19 03:53 95 Nasal Cannula 2.00 07/04/19 02:51 93 Nasal Cannula 2.00 07/04/19 02:15 92 Nasal Cannula 2.00 07/04/19 02:00 89 Room Air 07/04/19 00:00 Room Air 07/04/19 00:00 36.9 80 20 120/59 (79) 93 Room Air 07/03/19 23:17 36.4 64 96 07/03/19 23:05 36.4 64 12 133/60 97 Nasal Cannula 2.00 2.00 07/03/19 22:04 36.6 64 22 133/64 97 Nasal Cannula 2.00 07/03/19 21:57 36.6 64 24 111/76 (88) 95 Nasal Cannula 2.00 100.00 07/03/19 21:56 95 Nasal Cannula 2.00 100 07/03/19 21:54 94 Nasal Cannula 3.00 07/03/19 20:14 97 Room Air 07/03/19 20:10 36.3 58 19 120/80 (93) 98 Simple Mask I & O 07/04/19 07:00 Intake Total 1240 ml Output Total 400 ml Balance 840 ml Height & Weight Height: 5'4.00" Weight: 230lbs. 0.0oz. 104.437674gx; 32.25 BMI Method:Stated General Appearance: No Apparent Distress, WD/WN HEENT: PERRL/EOMI, Pharynx Normal Neck: Non Tender, Supple Respiratory: Decreased Breath Sounds, Expiration, Wheezing Cardiovascular: No Murmur, Tachycardia Capillary Refill: Less Than 3 Seconds Extremity: Normal Range of Motion, Non Tender Neurologic/Psychiatric: Alert, Oriented x3 Results Lab Laboratory Tests 07/03/19 20:03 07/04/19 04:05 Assessment/Plan Assessment/Plan Pneumonia with Atelectasis and small right pleural effusion pneumonia -No leukocytosis or fever -Continue current Abx for now -check UA Hypoxia -Oxygen Metabolic lactic acidosis -IVF -Monitor ELIECER SUAREZ DO Jul 04, 2019 16:01
--- NOTE | 2019-07-04 16:23 | NUR ---
IRF Evaluation Order received to evaluate patient for the ARU. Chart review complete and findings discussed with Dr. Vargas - patient accepted for admission. CM/SS and Dr. Clay notified. Will continue to follow as it relates to evaluation/admission. Thank you for this referral.
[2019-07-04] MEDS ORDERED: HYDROCHLOROTHIAZIDE 25 MG (HCTZ) TAB PO SCH (17:00)
--- NOTE | 2019-07-04 17:24 | NUR ---
Dr. Clay notified of critical lactic of 4.47 at this time. New orders for 1L NS bolus now and continuous pulse ox monitoring. RT notified.
[2019-07-04] MEDS ORDERED: NS IV 1000 ML 1,000 ML IV ONE (17:45)
[2019-07-04] MEDS: ENOXAPARIN 40 MG/0.4 ML (LOVENOX) SYR SQ SCH ×2 (17:53→18:12)
[2019-07-04] MEDS: RANOLAZINE ER 500 MG TAB (RANEXA) PO SCH (19:37)
[2019-07-04] MEDS ORDERED: FUROSEMIDE 40 MG/4 ML INJ (LASIX) ONE (20:28)
--- NOTE | 2019-07-04 20:29 | NUR ---
PT. REQUESTING TO TAKE HER HOME MEDICATION LASIX 20MG DR. MEHTA NOTIFIED: NEW ORDERS RECEIVED: DECREASE IVF 75MLS/HR, GIVE LASIX 20MG IV NOW WILL CONTINUE TO MONITOR.
[2019-07-04] MEDS ORDERED: FUROSEMIDE 40 MG/4 ML INJ (LASIX) IVP ONE (20:30)
[2019-07-04 20:52] LABS: BILIRUBIN,URINE NEGATIVE (NEGATIVE); CLARITY,URINE CLEAR; COLOR,URINE YELLOW; GLUCOSE, URINE (UA) 3+ (NEGATIVE); KETONES,URINE NEGATIVE (NEGATIVE); LEUKOCYTE ESTERASE ,URINE NEGATIVE (NEGATIVE); NITRITE,URINE NEGATIVE (NEGATIVE); PH,URINE 6.5 (5-9); PROTEIN,URINE NEGATIVE (NEGATIVE)
[2019-07-04 20:59] LABS: BACTERIA,URINE TRACE /HPF
[2019-07-04 21:00] LABS: SQUAMOUS EPITHELIAL CELL,UR 0-2 /HPF
[2019-07-04] MEDS ORDERED: ROSUVASTATIN 10 MG (CRESTOR) TABLET PO SCH (21:00)
[2019-07-04] MEDS ORDERED: NON-FORMULARY MEDICATION 1 EA EA (Ranolazine (Ranolazine ER) 1,000 MG) PO SCH (21:00)
[2019-07-04] MEDS ORDERED: diphenhydrAMINE 25 MG TAB (BENADRYL) PO SCH (21:00)
[2019-07-04] MEDS ORDERED: DIPHENHYDRAMINE HCL 50 MG PO SCH (21:00)
[2019-07-04] MEDS ORDERED: CEFEPIME 2,000 MG/SWFI 20 ML IV PUSH IV SCH ×2 (21:00)
[2019-07-04] MEDS ORDERED: ATENOLOL 25 MG (TENORMIN) TAB PO SCH (21:00)
[2019-07-04] MEDS ORDERED: LIDOCAINE PATCH REMOVAL TP SCH (21:00)
--- NOTE | 2019-07-04 23:30 | NUR ---
PT. REQUESTING PAIN MEDICATION. DR. MEHTA NOTIFIED, NEW ORDER RECEIVED: CHANGE LORTAB TO Q4HRS PRN
[2019-07-05] MEDS ORDERED: HYDROcodone/APAP 7.5 MG/325 MG (LORTAB, LORCET PLUS) TABLET PO PRN (00:45)
[2019-07-05] MEDS: RT-ALBUTEROL/IPRATROPIUM 3 ML (DUONEB) VIAL INH SCH ×3 (02:24→09:23)
[2019-07-05 04:00] VITALS: BP 136/65
[2019-07-05 05:19] LABS: HEMOGLOBIN 12.6 G/DL (11.5-16.0); MEAN PLATELET VOLUME 9.8 FL (7.4-10.4); RED CELL DISTRIBUTION WIDTH 12.1 % (10.0-14.5); WHITE BLOOD COUNT 8.5 10^3/uL (4.3-11.0)
[2019-07-05 05:31] LABS: ALBUMIN 3.1 GM/DL (3.2-4.5); BILIRUBIN,TOTAL 0.5 MG/DL (0.1-1.0); CALCIUM 8.5 MG/DL (8.5-10.1); CREATININE SERUM 0.96 MG/DL (0.60-1.30); POTASSIUM 3.3 MMOL/L (3.6-5.0); TOTAL PROTEIN 5.1 GM/DL (6.4-8.2)
[2019-07-05] MEDS: inSUlin ASPART (NovoLOG) 1 UNIT/0.01 ML (CHARGE PER UNIT) SC SCH ×2 (05:57→10:39)
[2019-07-05] MEDS: methylPREDNISolone 40 MG/ML (Solu-MEDROL) VIAL IV SCH (05:57)
--- NOTE | 2019-07-05 07:47 | Pulmonary Progress Note ---
Subjective Time Seen by a Provider: 07:43 Sepsis Event Evaluation Height, Weight, BMI Height: 5'4.00" Weight: 230lbs. 0.0oz. 104.054022yz; 32.25 BMI Method:Stated Focused Exam Lactate Level 07/04/19 19:01: Lactic Acid Level 3.07*H 07/05/19 05:00: Lactic Acid Level 2.45*H 07/05/19 06:53: Lactic Acid Level 1.97 Lactic Acid Level Laboratory Tests Test 07/05/19 05:00 07/05/19 06:53 Lactic Acid Level 2.45 MMOL/L (0.50-2.00) *H 1.97 MMOL/L (0.50-2.00) Exam Exam Vital Signs Date Time Temp Pulse Resp B/P (MAP) Pulse Ox O2 Delivery O2 Flow Rate FiO2 07/05/19 07:22 96 Nasal Cannula 0.50 07/05/19 04:00 36.8 57 18 136/65 (88) 92 Nasal Cannula 1.00 07/05/19 02:25 93 Nasal Cannula 1.00 07/04/19 23:46 36.6 66 20 115/56 (75) 94 Nasal Cannula 1.00 07/04/19 22:34 96 Nasal Cannula 1.00 07/04/19 21:09 36.4 74 95 24 07/04/19 20:13 95 Nasal Cannula 1.00 07/04/19 20:00 37.6 66 18 130/62 (84) 96 Nasal Cannula 1.00 07/04/19 19:40 98 Nasal Cannula 1.00 07/04/19 19:30 Nasal Cannula 1.00 07/04/19 17:35 96 Nasal Cannula 2.00 07/04/19 16:00 36.4 74 22 128/60 (82) 98 Nasal Cannula 2.00 07/04/19 15:25 92 Nasal Cannula 2.00 07/04/19 15:21 85 Room Air 07/04/19 12:00 36.2 67 20 130/60 (83) 93 Room Air 07/04/19 10:29 94 Room Air 07/04/19 10:09 36.4 60 20 119/55 (76) 90 Room Air 07/04/19 08:00 36.0 60 20 119/55 (76) 90 Room Air 07/04/19 08:00 94 Room Air 0.50 100 I & O 07/05/19 07:00 Intake Total 3025 ml Output Total 2750 ml Balance 275 ml Height & Weight Height: 5'4.00" Weight: 230lbs. 0.0oz. 104.706346wm; 32.25 BMI Method:Stated General Appearance: No Apparent Distress, WD/WN HEENT: PERRL/EOMI, Pharynx Normal Neck: Non Tender, Supple Respiratory: Decreased Breath Sounds, Expiration, Wheezing Cardiovascular: No Murmur, Tachycardia Capillary Refill: Less Than 3 Seconds Extremity: Normal Range of Motion, Non Tender Neurologic/Psychiatric: Alert, Oriented x3 Results Lab Laboratory Tests 07/03/19 20:03 07/04/19 04:05 07/05/19 05:00 Assessment/Plan Assessment/Plan Pneumonia with Atelectasis and small right pleural effusion pneumonia -AM labs pending -currently on cefepime -check UA -Repeat CXR is pending Hypoxia -Oxygen - Titrate Metabolic lactic acidosis -IVF -Monitor ELIECER SUAREZ DO Jul 05, 2019 07:47
[2019-07-05 07:53] LABS: WHITE BLOOD COUNT 8.5 10^3/uL (4.3-11.0)
[2019-07-05 07:54] LABS: HEMATOCRIT 36 % (35-52); HEMOGLOBIN 12.6 G/DL (11.5-16.0); MEAN CORPUSCULAR HEMOGLOBIN 34 PG (25-34); MEAN CORPUSCULAR HGB CONC 35 G/DL (32-36); MEAN CORPUSCULAR VOLUME 97 FL (80-99); MEAN PLATELET VOLUME 9.8 FL (7.4-10.4); PLATELET COUNT 151 10^3/uL (130-400); POTASSIUM 3.3 MMOL/L (3.6-5.0); RED CELL DISTRIBUTION WIDTH 12.1 % (10.0-14.5)
[2019-07-05 07:55] LABS: CALCIUM 8.5 MG/DL (8.5-10.1); CREATININE SERUM 0.96 MG/DL (0.60-1.30)
[2019-07-05 07:59] LABS: BASOPHILS % (AUTO) 0 % (0-10); EOSINOPHILS % (AUTO) 1 % (0-10); LYMPHOCYTES # (AUTO) 0.5 X 10^3 (1.0-4.0); LYMPHOCYTES % (AUTO) 6 % (12-44); MONOCYTES # (AUTO) 0.4 X 10^3 (0.0-1.0); MONOCYTES % (AUTO) 4 % (0-12); NEUTROPHILS # (AUTO) 7.6 X 10^3 (1.8-7.8); NEUTROPHILS % (AUTO) 90 % (42-75)
[2019-07-05 08:00] VITALS: BP 130/62
[2019-07-05] MEDS: NS IV 1000 ML 1,000 ML IV SCH (08:02)
[2019-07-05 08:10] LABS: MAGNESIUM 1.9 MG/DL (1.6-2.4); PHOSPHORUS 2.7 MG/DL (2.3-4.7)
[2019-07-05 08:42] LABS: BAND NEUTROPHILS 0 %; BASOPHILS % (MANUAL) 0 %; EOSINOPHILS % (MANUAL) 0 %; LYMPHOCYTES % (MANUAL) 4 %; MONOCYTES % (MANUAL) 9 %; NEUTROPHILS % (MANUAL) 87 %; RBC MORPH NORMAL
[2019-07-05] MEDS ORDERED: KCL 20 MEQ TAB (K-DUR) PO NR (08:45)
[2019-07-05] MEDS ORDERED: NS W/KCL 20 MEQ/L 1,000 ML IV SCH (08:45)
[2019-07-05] MEDS ORDERED: amLODIPine 5 MG (NORVASC) TAB PO SCH (09:00)
[2019-07-05] MEDS ORDERED: LOSARTAN 25 MG (COZAAR) TAB PO SCH (09:00)
[2019-07-05] MEDS ORDERED: SPIRONOLACTONE 25 MG (ALDACTONE) TAB PO SCH (09:00)
[2019-07-05] MEDS ORDERED: VITAMIN D3 1,000 UNITS (CHOLECALCIFEROL) TABLET PO SCH (09:00)
[2019-07-05] MEDS ORDERED: ASPIRIN E.C. 81 MG (ECOTRIN) TAB PO SCH (09:00)
[2019-07-05] MEDS ORDERED: LIDOCAINE 4% (SALONPAS) PATCH TOP SCH (09:00)
[2019-07-05] MEDS ORDERED: PANTOPRAZOLE 40 MG (PROTONIX) TAB PO SCH (09:00)
[2019-07-05] MEDS ORDERED: FUROSEMIDE 20 MG (LASIX) TAB PO SCH (09:00)
[2019-07-05] MEDS ORDERED: NON-FORMULARY MEDICATION 1 EA EA (Cholecalciferol (Vitamin D3) (Vitamin D-3) 2,000 UNIT) PO SCH (09:00)
--- NOTE | 2019-07-05 09:01 | Diagnostic Imaging Report ---
INDICATION: Pneumonia, shortness of air, and cough. TIME OF EXAMINATION: 8:31 AM. COMPARISON: Correlation is made with the prior chest from 07/03/2019. FINDINGS: Right convexity thoracic scoliotic curvature is noted. The heart size is stable. The lungs do show some hyperinflation, consistent with COPD. There may be some minimal residual basilar infiltrate or atelectasis in the left base. The right base appears to be fairly clear. No significant effusion or pneumothorax is seen. IMPRESSION: Improved aeration. There may be minimal residual infiltrate or atelectasis in the left base. Dictated by: Dictated on workstation # [id number]
[2019-07-05] MEDS: RANOLAZINE ER 500 MG TAB (RANEXA) PO SCH (09:18)
--- NOTE | 2019-07-05 09:25 | Discharge Summary ---
Diagnosis/Chief Complaint Date of Admission Jul 03, 2019 at 21:46 Date of Discharge Discharge Date: Jul 05, 2019 Discharge Time: 10:00 Admission Diagnosis Admission Diagnosis PNEUMONIA GENERALIZED WEAKNESS HYPERTENSION DIABETES MELLITUS LACTIC ACIDOSIS WITHOUT SEPSIS Discharge Diagnosis PNEUMONIA GENERALIZED WEAKNESS HYPERTENSION DIABETES MELLITUS ASPIRATION EVENT HYPOXEMIA FLUID OVERLOAD LACTIC ACIDOSIS WITHOUT SEPSIS Reason Hospital Visit PT IS A 78 Y/O FEMALE WHO IS WELL KNOWN TO ME FROM CLINIC. SHE HAD BEEN TREATED FOR PNEUMONIA, HAS HAD SOME CLEARING OF HER SYMPTOMS, THEN THEY RETURNED WITH WORSENING COUGH, CONGESTION AND SHE WAS BROUGHT TO THE ER WHERE SHE WAS FOUND TO HAVE LOW OXYGEN IN THE 80'S, SHE WAS GIVEN TREATMENT, PLACED ON OXYGEN AND HER O2 SATS IMPROVED TO THE LOW 90'S. Discharge Summary Consultations PULMONOLOGY Discharge Physical Examination Allergies: Coded Allergies: Sulfa (Sulfonamide Antibiotics) (Unverified Allergy, Unknown, HIVES, SOB, 10/27/06) morphine (Unverified Allergy, Unknown, UNKNOWN, 10/27/06) propoxyphene (Unverified Allergy, Unknown, UNKNOWN, 10/27/06) erythromycin base (Unverified Adverse Reaction, Unknown, SICK TO HER STOMACH, CRAMPS, VOMITING, 10/27/06) Vitals & I&Os Vital Signs Date Time Temp Pulse Resp B/P (MAP) Pulse Ox O2 Delivery O2 Flow Rate FiO2 07/05/19 07:22 96 Nasal Cannula 0.50 07/05/19 04:00 36.8 57 18 136/65 (88) 07/04/19 21:09 24 General Appearance: Alert, Oriented X3, Cooperative, No Acute Distress HEENT: Atraumatic, PERRLA, Other (MMDRY) Respiratory: Other (WHEEZING) Cardiovascular: Regular Rate Abdominal: Normal Bowel Sounds, Soft, No Tenderness Extremities: No Clubbing, No Cyanosis, Other (TRACE EDEMA BILATERAL LOWER EXTREMITIES, EDEMA OF HANDS TO MID UPPER ARM BILATERALLY 2+PITTING) Skin: No Breakdown Neuro: Normal Speech, Cranial Nerves 3-12 NL Psych/Mental Status: Mental Status NL, Mood NL Hospital Course Was the Problem List Reviewed?: Yes PNEUMONIA GENERALIZED WEAKNESS HYPERTENSION DIABETES MELLITUS ASPIRATION EVENT HYPOXEMIA FLUID OVERLOAD LACTIC ACIDOSIS WITHOUT SEPSIS PNEUMONIA PT ON IV ANTIBIOTICS - WILL CONTINUE WHEN DOWN ON IRF GENERALIZED WEAKNESS WITH CHRONIC BACK PAIN - PT TO BE TRANSFERRED DOWN TO IRF FOR PT/OT/REC AND SPEECH THERAPY HYPERTENSION - STABLE - NO CHANGE IN TREATMENT DIABETES MELLITUS - RESUME HOME REGIMEN ASPIRATION EVENT - SPEECH EVAL TODAY CAN BE DONE ON 4TH FLOOR OR IRF HYPOXEMIA - SYMPTOMS IMPROVED ON OXYGEN VIA NASAL CANNULA - CONTINUE WITH BREATHING TREATMENTS FLUID OVERLOAD - DUE TO HYDRATION FOR LACTIC ACIDOSIS - LASIX 20MG IV YESTERDAY - WILL GIVE ANOTHER DOSE THIS MORNING THEN RESUME PREVIOUS REGIMEN TOMORROW MORNING WITH ORAL LASIX LACTIC ACIDOSIS WITHOUT SEPSIS - RESOLVED WITH FLUIDS AND OXYGEN Pending Labs Laboratory Tests 07/05/19 05:00: White Blood Count 8.5, Red Blood Count 3.74, Hemoglobin 12.6, Hematocrit 36, Mean Corpuscular Volume 97, Mean Corpuscular Hemoglobin 34, Mean Corpuscular Hemoglobin Concent 35, Red Cell Distribution Width 12.1, Platelet Count 151, Mean Platelet Volume 9.8, Neutrophils (%) (Auto) 90, Lymphocytes (%) (Auto) 6, Monocytes (%) (Auto) 4, Eosinophils (%) (Auto) 1, Basophils (%) (Auto) 0, Neutrophils # (Auto) 7.6, Lymphocytes # (Auto) 0.5, Monocytes # (Auto) 0.4, Eosinophils # (Auto) 0.0, Basophils # (Auto) 0.0, Neutrophils % (Manual) 87, Lymphocytes % (Manual) 4, Monocytes % (Manual) 9, Eosinophils % (Manual) 0, Basophils % (Manual) 0, Band Neutrophils 0, Blood Morphology Comment NORMAL, Sodium Level 134, Potassium Level 3.3, Chloride Level 100, Carbon Dioxide Level 22, Anion Gap 12, Blood Urea Nitrogen 21, Creatinine 0.96, Estimat Glomerular Filtration Rate 56, BUN/Creatinine Ratio 22, Glucose Level 320, Lactic Acid Level 2.45, Calcium Level 8.5, Corrected Calcium 9.2, Phosphorus Level 2.7, Magnesium Level 1.9, Total Bilirubin 0.5, Aspartate Amino Transf (AST/SGOT) 12, Alanine Aminotransferase (ALT/SGPT) 14, Alkaline Phosphatase 44, B-Type Natriuretic Peptide 175.3, Total Protein 5.1, Albumin 3.1 07/05/19 06:53: Lactic Acid Level 1.97 Discharge Condition at discharge STABLE Instructions to patient/family Please see electronic discharge instructions given to patient. Discharge Medications Reviewed and agree with Discharge Medication list on patient's Discharge Instruction sheet Clinical Quality Measures DVT/VTE Risk/Contraindication: Risk Factor Score Per Nursin RFS Level Per Nursing on Admit: 4+=Very High TYSON,KARY A MD Jul 05, 2019 09:25
[2019-07-05] MEDS ORDERED: FUROSEMIDE 40 MG/4 ML INJ (LASIX) IVP NR (09:30)
--- NOTE | 2019-07-05 09:30 | Discharge Inst-Complex ---
PDI Reconcile Patient Problems Problems Reviewed?: Yes Med Rec & Follow Up Appt. Continued Medications: Albuterol Sulfate (Albuterol Sulfate) 2.5 Mg/3 Ml Vial.neb 2.5 MG IH QID PRN for SHORTNESS OF BREATH, EA Albuterol Sulfate (Ventolin Hfa) 18 Gm Hfa.aer.ad 2 PUFF INH Q4H PRN for SHORTNESS OF BREATH, INHALER Amlodipine Besylate (Amlodipine Besylate) 5 Mg Tablet 5 MG PO DAILY, TAB Aspirin (Adult Low Dose Aspirin EC) 81 Mg Tablet.dr 81 MG PO DAILY, TAB Atenolol (Atenolol) 25 Mg Tablet 25 MG PO HS, TAB Cholecalciferol (Vitamin D3) (Vitamin D-3) 2,000 Unit Tablet 2000 UNIT PO DAILY, TAB Diphenhydramine HCl (Banophen) 25 Mg Capsule 50 MG PO HS, CAP TAKES 2 (25MG) CAPSULES Furosemide (Furosemide) 20 Mg Tablet 20 MG PO DAILY, TAB Hydrochlorothiazide (Hydrochlorothiazide) 25 Mg Tablet 25 MG PO HS, TAB Hydrocodone/Acetaminophen (Hydrocodon-Acetaminophn 10-325) 1 Each Tablet 1 TAB PO Q6H PRN for PAIN-MODERATE, TAB Insulin Aspart (Novolog) 100 Unit/1 Ml Susp 20 UNIT SQ DAILY, EACH Insulin Determir (Levemir) 1,000 Units/10 Ml Soln 10 UNITS SC DAILY, EA Insulin Determir (Levemir) 1,000 Units/10 Ml Soln 15-20 UNITS SQ HS, EA Losartan Potassium (Losartan Potassium) 25 Mg Tablet 25 MG PO DAILY, TAB Pantoprazole Sodium (Pantoprazole Sodium) 40 Mg Tablet.dr 40 MG PO DAILY Prednisone (Prednisone) 10 Mg Tab PO UD, TAB TAKE 6 TABS DAY 1 TAKE 5 TABS DAY 2 TAKE 4 TABS DAY 3 TAKE 3 TABS DAY 4 TAKE 2 TABS DAY 5 TAKE 1 TAB DAY 6 FILLED 1-15-20 Promethazine HCl/Codeine (Prometh-Codein 6.25-10 mg/5 ml) 5 Ml Syrup 5-10 ML PO Q6H PRN for COUGH, EA Ranolazine (Ranolazine ER) 1,000 Mg Tab.er.12h 1000 MG PO BID, TAB Rosuvastatin Calcium (Rosuvastatin Calcium) 10 Mg Tablet 10 MG PO HS, TAB Spironolactone (Spironolactone) 25 Mg Tablet 25 MG PO DAILY, TAB Discontinued Medications: Levofloxacin (Levofloxacin) 500 Mg Tablet 500 MG PO Q48H, #5 TAB #5 TABLETS FILLED 06-29-19 Prescription: Other Patient Instructions: PNEUMONIA GENERALIZED WEAKNESS HYPERTENSION DIABETES MELLITUS ASPIRATION EVENT HYPOXEMIA FLUID OVERLOAD LACTIC ACIDOSIS WITHOUT SEPSIS Activity, Diet and PDI Resume Normal Activity: Yes Discharge Diet: Regular Diet Symptoms to Reoprt to : Appetite Changes, Pain/Pressure in Chest For Problems or Questions: Contact Your Physician, Go to Emergency Room KARY MEHTA MD Jul 05, 2019 09:30
--- NOTE | 2019-07-05 10:00 | NUR ---
MORNING MEDICATIONS HELD PER DR ORDERS. PT POSSIBLY ASPIRATED ON BREAKFAST THIS MORNING. ORDER PLACED FOR SWALLOW EVAL. PT TO TRANSFER TO ARU TODAY.
[2019-07-05] MEDS ORDERED: POTASSIUM CL 10MEQ/50ML IVPB 50 ML IV SCH (10:30)
--- NOTE | 2019-07-05 10:31 | Occupational Ther Daily Note ---
OT Current Status-Daily Note Subjective Pt seen in recliner chair, daughter present at start of session. Denies pain, states she aspirated and DO states NPO status until swallow study. Pt agreeable to tx session, stating she may come to ARU on this date. Mental Status/Objective Patient Orientation: Person, Place, Time, Situation, Normal For Age Attachments: Oxygen ADL-Treatment Therapy Code Descriptions/Definitions Functional [place] Measure: 0=Not Assessed/NA 4=Minimal Assistance 1=Total Assistance 5=Supervision or Setup 2=Maximal Assistance 6=Modified [place] 3=Moderate Assistance 7=Complete IndependenceSCALE: Activities may be completed with or without assistive devices. 0-Hauyjnpoum-vpknxaf completes the activity by him/herself with no assistance from a helper. 5-Set-up or Clean-up Assistance-helper sets up or cleans up; patient completes activity. [place] assists only prior to or following the activity. 4-Supervision or Touching Assistance-helper provides verbal cues and/or touching/steadying and/or contact guard assistance as patient completes activity. Assistance may be provided throughout the activity or intermittently. 3-Partial/Moderate Assistance-helper does LESS THAN HALF the effort. [place] lifts, holds or supports trunk or limbs, but provides less than half the effort. 2-Substantial/Maximal Assistance-helper does MORE THAN HALF the effort. [place] lifts or holds trunk or limbs and provides more than half the effort. 4-Aabyvkfbe-rlxfjt does ALL the effort. Patient does none of the effort to complete the activity. Or, the assistance of 2 or more helpers is required for the patient to complete the activity. If activity was not attempted, code reason: 7-Patient Refused. 9-Not Applicable-not attempted and the patient did not perform the activity before the current illness, exacerbation or injury. 10-Not Attempted due to Environmental Limitations-(lack of equipment, weather restraints, etc.). 88-Not Attempted due to Medical Conditions or Safety Concerns. Oral Hygiene (QC): 5 (pt completes oral care with mouth gel and sponge, requires s/u (OT opens packaging)) Other Treatment Pt provides hx of PNA dx. Pt states she has been utilizing mother's nebulizer with dirty filter. Pt agrees for oral hygiene due to dry mouth, completes with s/u. Pt completes AROM during discussions, completes ~2 sets of 10 shoulder flexion exercises. Pt talkative and oriented. Pt left in room with call light in reach, all needs met. Education OT Patient Education: Correct positioning, Exercise program, Modified ADL techniques Teaching Recipient: Patient Teaching Methods: Demonstration, Discussion Response to Teaching: Verbalize Understanding, Return Demonstration OT Custodial Goals Custodial Goals Time Frame: Jul 11, 2019 Eating (QC): 6 Oral Hygiene (QC): 6 Toileting Hygiene (QC): 5 Shower/Bathe Self (QC): 4 Upper Body Dressing (QC): 5 Lower Body Dressing (QC): 4 Additional Goals: 1-Demonstrate ADL Tasks, 2-Verbalize Understanding, 3- ImproveStrength/Arabella 1=Demonstrate adherence to instructed precautions during ADL tasks. 2=Patient will verbalize/demonstrate understanding of assistive devices/modifications for ADL. 3=Patient will improve strength/tolerance for activity to enable patient to perform ADL's. OT Education/Plan Problem List/Assessment Assessment: Decreased Activ Tolerance, Decreased UE Strength, Dependent Transfers, Edema, Impaired Bed Mobility, Impaired Funct Balance, Impaired I ADL's, Impaired Self-Care Skills Pt to benefit from skilled OT intervention for ADL training, transfers, strengthening, and safety education to increase level of independence and allow safe discharge plan. Discharge Recommendations Plan/Recommendations: Continue POC Treatment Plan/Plan of Care Treatment,Training & Education: Yes Patient would benefit from OT for education, treatment and training to promote independence in ADL's, mobility, safety and/or upper extremity function for ADL' s. Plan of Care: ADL Retraining, Functional Mobility, UE Funct Exercise/Act Treatment Duration: Jul 11, 2019 Frequency: 5 times per week Estimated Hrs Per Day: .25 hour per day Rehab Potential: Fair Time/GCodes Start Time: 09:47 Stop Time: 10:00 Total Time Billed (hr/min): 13 Billed Treatment Time 1, ADL (13) PREMA RODRIGUEZ OTR Jul 05, 2019 10:31
[2019-07-05 11:07] VITALS: BP 130/62
[2019-07-05] MEDS ORDERED: predniSONE 20 MG TAB PO SCH (12:00)
== END 2019-07-05 10:50 | DRG 194 ==
LOC: EDUNIT# 19:57 → ER 19:59 → 4TH 21:46
PROVIDERS: ADMIT Internal Medicine; ATTEND Family Medicine
DX: J18.1 Lobar pneumonia, unspecified organism (principal); E87.2 Acidosis; J98.11 Atelectasis; J90 Pleural effusion, not elsewhere classified; R53.1 Weakness; E87.70 Fluid overload, unspecified; T17.928A Food in respiratory tract, part unspecified causing other injury, initial encounter; J44.9 Chronic obstructive pulmonary disease, unspecified; I25.10 Atherosclerotic heart disease of native coronary artery without angina pectoris; I10 Essential (primary) hypertension; E78.00 Pure hypercholesterolemia, unspecified; E11.42 Type 2 diabetes mellitus with diabetic polyneuropathy; R09.02 Hypoxemia; M19.91 Primary osteoarthritis, unspecified site; M54.9 Dorsalgia, unspecified; G89.29 Other chronic pain; Z79.4 Long term (current) use of insulin; Z87.891 Personal history of nicotine dependence; Z86.19 Personal history of other infectious and parasitic diseases; Z87.11 Personal history of peptic ulcer disease; Z85.42 Personal history of malignant neoplasm of other parts of uterus; Z90.710 Acquired absence of both cervix and uterus; Z90.722 Acquired absence of ovaries, bilateral; Z90.79 Acquired absence of other genital organ(s); Z88.2 Allergy status to sulfonamides; Z88.5 Allergy status to narcotic agent
CPT/HCPCS: 36415; 71045; 71046; 80048; 80053; 81000; 82962; 83605; 83735; 83880; 84100; 85007; 85025; 85027; 85610; 85730; 87040; 87804; 94640; 94664; 94760; 96361; 96374; 96375

== ENCOUNTER 2019-07-05 09:47 | Inpatient (IN) | payer MEDICARE ==
[~2019-07-05] VITALS: Ht 163 cm; Wt 102.4 kg
[~2019-07-05 09:47] MED LIST changes: +ALBU18HF2 INH; +CHOL200059 PO; +DIPH25CA45 PO; +INSU100V5 SC; +LEVO500T80 PO; +PRD10T PO; +PROM5SYR PO; +RANO10004 PO
[2019-07-05] MEDS ORDERED: ENOXAPARIN 40 MG/0.4 ML (LOVENOX) SYR SC SCH ×2 (10:15→18:00)
[2019-07-05] MEDS ORDERED: ALPRAZolam 0.25 MG (XANAX) TAB PO PRN (10:15)
[2019-07-05] MEDS ORDERED: BISACODYL 10 MG SUPP (DULCOLAX) PR PRN (10:15)
[2019-07-05] MEDS ORDERED: FLEET ENEMA ADULT 1 EA BTL PR PRN (10:15)
[2019-07-05] MEDS ORDERED: LACTULOSE SYRUP 10GM/15ML (ENULOSE) 30ML UDC PO PRN (10:15)
[2019-07-05] MEDS ORDERED: ONDANSETRON 4 MG (ZOFRAN) ORAL DISSOLVE TAB PO PRN (10:15)
[2019-07-05] MEDS ORDERED: ONDANSETRON 4 MG/2 ML (SDV) Z0FRAN IV PRN ×2 (10:15→12:30)
[2019-07-05] MEDS ORDERED: diphenhydrAMINE 25 MG TAB (BENADRYL) PO PRN (10:15)
[2019-07-05] MEDS ORDERED: DOCUSATE SODIUM 100 MG (COLACE) CAP PO PRN (10:15)
[2019-07-05] MEDS ORDERED: CALCIUM CARBONATE 500 MG (TUMS) TAB.CHEW PO PRN (10:15)
[2019-07-05] MEDS ORDERED: MELATONIN 3 MG TABLET PO PRN (10:15)
[2019-07-05] MEDS ORDERED: LOPERAMIDE 2 MG (IMODIUM) TABLET PO PRN (10:15)
--- NOTE | 2019-07-05 10:53 | NUR ---
Pt admitted to room 228, with an admitting diagnosis of Pneumonia, Debility, from 4th floor, via w/c, accompanied by PT. BENIGNO KUMAR introduced to surroundings, call light, bed controls, phone, TV, temperature control, lights, meal times, smoking policy, visitor policy, side rail policy, bathrooms and showers. Patient Rights given to patient in the handbook. BENIGNO KUMAR verbalizes understanding that [facility] is not responsible for the loss or damage to any personal effects or valuables that are kept in the patients posession during their hospitalization. The following Patient Care Plans were discussed with the pt: Discharge Planning, Impaired Mobility, Self Care Deficit, Potential for falls, Alteration in Gas Exchange. BENIGNO KUMAR verbalizes understanding of Interdisciplinary Patient Education. Patient and/or family were informed about the Rapid Response Team and its purpose. Patient received Patient Rights Booklet, which includes Privacy Act Statement and Data Collection Information Summary.
--- NOTE | 2019-07-05 11:29 | NUR ---
REVIEWED MED REC IT WAS REPORTED UPON ADMISSION TO 4TH FLOOR. THE ONLY CHANGE THAT WAS MADE WHEN THE PATIENT DISCHARGED TO REHAB WAS DISCONTINUING A SHORT TERM ANTIBIOTIC. I DID NOT ADD IT BACK TO THE MED REC AT THIS TIME.
--- NOTE | 2019-07-05 11:40 | Physical Therapy Evaluation ---
PT Evaluation-General Medical Diagnosis Admission Date Jul 05, 2019 at 10:53 Medical Diagnosis: COPD/pneumonia Onset Date: Jun 27, 2019 Therapy Diagnosis Therapy Diagnosis: impaired mobility, strength, endurance Height/Weight Height (Feet): 5 Height (Inches): 4.00 Weight (Pounds): 230 Weight (Ounces): 0.0 Referral Physician: Jacqueline Vargas DO Medical History Pertinent Medical History: CAD, COPD, DM, HTN, Neuropathy, OA, Smoking Additional Medical History Asthma, hepatitis, degenerative disk disease, uterine cancer Reviewed History: Yes Social History Home: Single Level Current Living Status: Spouse Entry Into Home: Level Entry Prior Prior Level of Function SCALE: Activities may be completed with or without assistive devices. 0-Zgsmcokmto-tzchfvh completes the activity by him/herself with no assistance from a helper. 5-Set-up or Clean-up Assistance-helper sets up or cleans up; patient completes activity. [place] assists only prior to or following the activity. 4-Supervision or Touching Assistance-helper provides verbal cues and/or touching/steadying and/or contact guard assistance as patient completes activity. Assistance may be provided throughout the activity or intermittently. 3-Partial/Moderate Assistance-helper does LESS THAN HALF the effort. [place] lifts, holds or supports trunk or limbs, but provides less than half the effort. 2-Substantial/Maximal Assistance-helper does MORE THAN HALF the effort. [place] lifts or holds trunk or limbs and provides more than half the effort. 3-Kdglupbiy-gnwals does ALL the effort. Patient does none of the effort to c omplete the activity. Or, the assistance of 2 or more helpers is required for the patient to complete the activity. If activity was not attempted, code reason: 7-Patient Refused. 9-Not Applicable-not attempted and the patient did not perform the activity before the current illness, exacerbation or injury. 10-Not Attempted due to Environmental Limitations-(lack of equipment, weather restraints, etc.). 88-Not Attempted due to Medical Conditions or Safety Concerns. Bed Mobility: 6 Transfers (B,C,W/C): 6 Gait: 6 Indoor Mobility (Ambulation): Independent Prior Devices Use: Walker ambulates short distances only PLOF 50-75' PT Evaluation-Current Subjective Patient in recliner pre tx, agrees to PT, has no complaints of pain at rest. Will be co-treating with OT due to poor patient mobility, profound LE weakness, SOB with activity, and the need to coordinate UE and LE during activity. Pt/Family Goals "to get stronger" Objective Patient Orientation: Person, Place, Situation ROM/Strength ROM Lower Extremities WNL except limited dorsiflexion on right side Strength Lower Extremities LLE (hip flexion 3/5, knee flexion 3/5, knee extension 3/5, dorsiflexion 3/5), RLE (hip flexion 3/5, knee flexion 3+/5, knee extension 3+/5, dorsiflexion 1/5) Sensory Vision: Functional Hearing: Functional Sensation Right Lower Extremit: Impaired Sensation Left Lower Extremity: Impaired Sensation Lower Extremities impaired light touch sensation from mid calf down due to peripheral neuropathy Transfers Roll Left to Right (QC): 6 Sit to Lying (QC): 6 Lying to Sitting/Side of Bed(Q: 6 Sit to Stand (QC): 3 Chair/Kgp-as-Vjexx Xfer(QC): 4 Toilet Transfer: 4 Patient performed bed mobility with independence, supine <-> sit with independence, sit <-> stand with min assist (for low surfaces), transfers with CGA, toilet transfer with CGA. Patient is good at reminding herself to use correct hand placement when standing and sitting. Car transfer was not able to get done this morning, will check this afternoon. Gait Does the Patient Walk?: Yes Mode of Locomotion: Walk Anticipated Mode of Locomotion: Walk Walk 10 feet (QC): 4 Walk 50 ft with 2 Turns(QC): 88 Walk 150 ft (QC): 88 Walking 10ft/uneven surface-QC: 88 Distance: 10' Gait Assistive Device: FWW Comments/Gait Description Patient can ambulate 10' with a rolling walker with CGA. Ambulation is slow and patient gets SOB quickly, needs cues for purse lip breathing. Wheelchair Training Does the Pt Use a Wheelchair?: Yes Distance: 150' Wheel 50 ft with 2 turns (QC): 1 Wheel 150 ft (QC): 1 Type of Wheelchair: Manual Stairs #of Steps: 88 1 Step (curb) (QC): 88 4 Steps (QC): 88 12 Steps (QC): 88 No stair performed this morning due to BLE weakness and SOB with activity. Balance Sitting Static: Normal Sitting Dynamic: Normal Standing Static: Good Standing Dynamic: Fair Picking up an Object (QC): 88 Treatment Patient needed to use the restroom, transferred to toilet in bathroom with min assist, OT assist with underwear up and down. Needed assist sitting and standing. Assessment/Needs Patient has impaired mobility, strength, endurance. She gets very SOB with activity, needs frequent rest breaks and cues to purse lip breathe. 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 Time Frame: Jul 26, 2019 Roll Left & Right (QC): 6 Sit to Lying (QC): 6 Lying-Sitting on Side/Bed(QC): 6 Sit to Stand (QC): 6 Chair/Rcg-ug-Vswxb Xfer(QC): 6 Toilet Transfer (QC): 6 Car Transfer (QC): 6 Walk 10 feet (QC): 6 Walk 50ft with 2 Turns (QC): 6 Walk 150 ft (QC): 6 Walking 10ft on Uneven Surface: 6 1 Step (curb) (QC): 4 4 Steps (QC): 4 PT Plan Problem List Problem List: Activity Tolerance, Functional Strength, Safety, Balance, Gait, Transfer, Bed Mobility Treatment/Plan Treatment Plan: Continue Plan of Care Treatment Plan: Bed Mobility, Concurrent Therapy, Education, Functional Activity Arabella, Functional Strength, Group Therapy, Gait, Safety, Therapeutic Exercise, Transfers Treatment Duration: Jul 26, 2019 Frequency: At least 5 of 7 days/Wk (IRF) Estimated Hrs Per Day: 1.5 hours per day Patient and/or Family Agrees t: Yes Safety Risks/Education Patient Education: Gait Training, Transfer Techniques, Correct Positioning, Safety Issues Teaching Recipient: Patient Teaching Methods: Demonstration, Discussion Response to Teaching: Reinforcement Needed Discharge Recommendations Plan Patient will perform bed mobility and transfer training, balance and endurance training, functional strengthening, stair training, gait training, and education, to improve functional mobility and independence at home. Therapy Discharge Recommendati: Home & Family Time/GCodes Time In: 1050 Time Out: 1130 Total Billed Treatment Time: 30 Total Billed Treatment 1 visit EVM 10' FA 20' Co-treated with OT for 20 min. PT worded on bed mobility, ambulation, transfers, toilet transfer, OT worked on UE activity, safety and positioning and dressing. PT eval from [id number], OT eval from [id number], co-treat from 1110- 1130. FRANCISCA MAHONEY PT Jul 05, 2019 11:40
--- NOTE | 2019-07-05 11:47 | Occupational Therapy Eval ---
OT Evaluation-General/PLF Medical Diagnosis Admission Date Jul 05, 2019 at 10:53 Medical Diagnosis: COPD/ PNA Onset Date: Jul 03, 2019 Therapy Diagnosis Therapy Diagnosis: Decreased ADL function Height/Weight Height (Feet): 5 Height (Inches): 4.00 Weight (Pounds): 230 Weight (Ounces): 0.0 Precautions Precautions/Isolations: Fall Prevention, Standard Precautions, Pressure Ulcer Weight Bear Status Weight Bearing Restriction: Weight Bearing/Tolerated Referral Physician: Jacqueline Vargas DO Referral Reason: Activity Tolerance, Self Care, Evaluation/Treatment, Strengthening/ROM Medical History Pertinent Medical History: CAD, COPD, DM, HTN, Neuropathy, OA, Smoking Additional Medical History CAD, COPD, DM, HTN, neuropathy, OA, high cholesterol, endometriosis Ca, hepatits, DDD, arthritis, chronic back pain Current History Pt dx with PNA upon admission, states weakness/ fatigue. Pt states both her and caregiver have pneumonia as well. Reviewed History: Yes Social History Home: Single Level Current Living Status: Spouse Entry Into Home: Level Entry Steps Into Home: 0 ADL-Prior Level of Function SCALE: Activities may be completed with or without assistive devices. 0-Riodgfmvfo-wcieffi completes the activity by him/herself with no assistance from a helper. 5-Set-up or Clean-up Assistance-helper sets up or cleans up; patient completes activity. [place] assists only prior to or following the activity. 4-Supervision or Touching Assistance-helper provides verbal cues and/or touching/steadying and/or contact guard assistance as patient completes activity. Assistance may be provided throughout the activity or intermittently. 3-Partial/Moderate Assistance-helper does LESS THAN HALF the effort. [place] lifts, holds or supports trunk or limbs, but provides less than half the effort. 2-Substantial/Maximal Assistance-helper does MORE THAN HALF the effort. [place] lifts or holds trunk or limbs and provides more than half the effort. 4-Maackqjtw-jrnpjn does ALL the effort. Patient does none of the effort to complete the activity. Or, the assistance of 2 or more helpers is required for the patient to complete the activity. If activity was not attempted, code reason: 7-Patient Refused. 9-Not Applicable-not attempted and the patient did not perform the activity before the current illness, exacerbation or injury. 10-Not Attempted due to Environmental Limitations-(lack of equipment, weather restraints, etc.). 88-Not Attempted due to Medical Conditions or Safety Concerns. ADL PLOF Comments Pt states she receives outside assist from caregiver with bathing (sponge bath) tasks as she has not been able to ambulate in/out of shower, LB threading for underwear and pants, shirt assist, etc.. Self Care: Needed Some Help Functional Cognition: Independent DME/Equipment: Bath Chair, Bedside Commode, Grab Bars, Shower DME/Equipment Comments Pt was walking ~77 steps with FWW in house with HH PT. Pt utilizes w/c inside/ outside the home. Occupation: retired Drive Self: No OT Current Status Subjective Pt seen in recliner chair within room on 4th floor. Pt agreeable to treatment. Pt states no pain, states Lidocane patch on back has subsided pain. Pt states she has been feeling weak/ tired. OT evaluation: [id number] (10) OT/PT cotreatment [id number] (20) Mental Status/Objective Patient Orientation: Person, Place, Time, Situation, Normal For Age Attachments: Oxygen Current Glasses/Contacts: Yes Hearing Aids: No Dentures/Partials: Yes Hand Dominance: Right Upper Extremity ROM WFL BUE Upper Extremity Coordination WFL BUE Upper Extremity Sensation WFL BUE Neuropathy BLE Upper Extremity Strength Decreased: 4/5 Edema: noted bilateral UE, states lasix start this morning. ADL-Treatment Eating (QC): 5 (Per nursing/ pt, pt NPO at start of session. Pt given oral hygiene kit, required assist opening package; pt able to bring items to mouth. Per clinical judgement pt requires s/u.) Oral Hygiene (QC): 5 (s/u) Shower/Bathe Self (QC): 7 (food preparation kitchen aide/ pt state shower completed this mor tamara. Pt receives assist with bathing tasks at home. ) Upper Body Dressing (QC): 3 (Robe handed to pt, pt requires assist for one arm to start. Able to don in w/c. ) Lower Body Dressing (QC): 2 (Threading BLE necessary by OT, pt able to bring from knees over hips. ) On/Off Footwear (QC): 1 (TD. ) Toileting Hygiene (QC): 2 (max A, pt sit to stand from standard toilet with use of GBs and FWW. Pt requires max A for bottom/ jose alejandro hygiene.) Other Treatments [id number]: OT eval [id number]: Pt assisted by OT/ PT (cotreatment rendered due to pt's weakness, debility, and need for 2 skilled therapists in which an aide would not be able to provide) from [facility] to ARU. Pt completes sit to stand from recliner to FWW (pt able to self-cue for correct transfer technique), utilize FWW for stand pivot to w/c (pt brings hand back to w/c). Pt sits with control. Pt educated on OT roles/ ARU expectations. Pt brought to ARU, completes UE MMT and evaluation. Pt urinates slightly as she coughs, states she has a pad but would like to utilize toilet. Pt walks with FWW ~10 feet. Pushed in w/c to room. Pt completes sit- stand with FWW and transfers to standard commode with SBA. Pt doffs underwear, dons brief with max A. Pt requires mod A to sit to stand from standard toilet, max A-TD for bottom hygiene. Pt pulls underwear over hips. Pt returns to w/c, pushed to bed, completes transfer to bed with SBA/ FWW use. Pt left in room with all needs met, call light in reach, nursing present. [id number]: OT/ PT cotreat: Pt seen in bed, completes bed mob with SBA. Pt sit to stand with FWW to commode with CGA. Pt completes urination, unable to wipe self/ OT max A. Pt sit to stand with CGA. Pt requires sit post-underwear pull- up. Pt then rests, transfers to w/c with FWW. Pt pushed to car transfer machine, completes. Pt pushed to therapy gym with TD, completes 3 sit to stands from w/c at parallel bars, instructed to lift hands off of bar to challenge balance and UE strength. Pt able to lift hands from bars for max 5 seconds, returns to sit. Completes 1 set of 10 exercises in w/c: shoulder flexion, shoulder horizonatal ab/adduction, elbow flexions, and hand sponge squeezes with shoulder flexion overhead. Pt states fatigue, returns to bed- able to adjust self in bed and get BLE in bed. Pt left with nursing and daughter, call light in reach, all needs met. Education OT Patient Education: Correct positioning, Modified ADL techniques, Purpose of tx/functional activities, Rehab process, Safety issues Teaching Recipient: Patient Teaching Methods: Demonstration, Discussion Response to Teaching: Verbalize Understanding, Return Demonstration OT Short Term Goals Short Term Goals Time Frame: Jul 12, 2019 Upper body dressin Lower body dressin Putting on/taking off footwear: 3 OT Usp Goals Urban Renewal Manager Goals Time Frame: Jul 19, 2019 Eating (QC): 5 Oral Hygiene (QC): 6 Toileting Hygiene (QC): 6 Shower/Bathe Self (QC): 3 Upper Body Dressing (QC): 6 Lower Body Dressing (QC): 3 On/Off Footwear (QC): 6 Additional Goals: 1-Demonstrate ADL Tasks, 2-Verbalize Understanding, 3- ImproveStrength/Arabella 1=Demonstrate adherence to instructed precautions during ADL tasks. 2=Patient will verbalize/demonstrate understanding of assistive devices/modifications for ADL. 3=Patient will improve strength/tolerance for activity to enable patient to perform ADL's. OT Education/Plan Problem List/Assessment Assessment: Decreased Activ Tolerance, Decreased UE Strength, Dependent Transfers, Edema, Impaired I ADL's, Impaired Self-Care Skills Discharge Recommendations Plan/Recommendations: Continue POC Therapy Discharge Recommendati: Bath Aide, Home & Family, Post Acute OT Treatment Plan/Plan of Care Treatment,Training & Education: Yes Patient would benefit from OT for education, treatment and training to promote independence in ADL's, mobility, safety and/or upper extremity function for ADL's. Plan of Care: ADL Retraining, Caregiver Training Treatment Duration: Jul 19, 2019 Frequency: 2 times per month Estimated Hrs Per Day: 1.5 hours per day Agreement: Yes Rehab Potential: Fair Time/GCodes Start Time: 10:45 Stop Time: 11:30 Total Time Billed (hr/min): 75 Billed Treatment Time [id number]: PT eval [id number]: OT eval [id number]: OT/ PT cotreat [id number]: OT/ PT cotreat 1, EVM, ADL 2 (30), EX 2(35)= 75 PREMA RODRIGUEZ OTR Jul 05, 2019 11:47
--- NOTE | 2019-07-05 11:55 | Progress Note ---
GIUSEPPE PENG,MED STUDENT 07/05/19 1155: Progress Note HPI: Presented to ED 07/03/2019 with cough, congestion and wheezing. Dx with right lower lobe pneumonia. Was on Levaquin started by Dr. Clay but pt couldn't breath so went into ED. Previously admitted to IR[facility] 04/12/2019 after presenting to ED s/p traumatic fall, UTI, back pain. Was found to be Influenza B positive in ED and Tamiflu was started. Pt received albuterol neb treatments for wheezing and pain was managed with 10mg Lortabs Q6H PRN. Dr. Clay provided support for insulin regimen, otherwise no changes to home meds. Pt was discharged with good prognosis on 04/22/2019. Significant past med hx: Insulin dependent DM HTN CAD Chronic back pain 2nd to spinal stenosis hyperlipidemia Allergies: Sulfa, morphine, propoxyphene, erythromycin JACQUELINE VARGAS DO 07/05/192026: Supervisory-Addendum Brief Verification & Attestation Participated in pt care: history, MDM, physical Personally performed: exam, history, MDM, supervision of care Care discussed with: Medical Student Procedures: n/a Results interpretation: Verified all documentation Verification and Attestation of Medical Student E/M Service A medical student performed and documented this service in my presence. I reviewed and verified all information documented by the medical student and made modifications to such information, when appropriate. I personally performed the physical exam and medical decision making. Jacqueline Vargas, Jul 05, 2019,20:27 GIUSEPPE PENG,MED STUDENT Jul 05, 2019 11:55 JACQUELINE VARGAS DO Jul 05, 2019 20:27
[2019-07-05 12:09] VITALS: BP 140/83
[2019-07-05] MEDS ORDERED: NS W/KCL 20 MEQ/L 1,000 ML IV SCH (12:30)
[2019-07-05] MEDS: HYDROcodone/APAP 7.5 MG/325 MG (LORTAB, LORCET PLUS) TABLET PO PRN ×2 (13:51→22:12)
--- NOTE | 2019-07-05 13:51 | Physical Therapy Daily Note ---
PT Daily Note-Current Subjective Patient in bed pre tx, agrees to PT, has no complaints of pain. Will be co- treating with OT due to poor patient mobility, profound LE weakness, poor endurance and SOB, the need to coordinate UE and LE during activity. Appearance Patient in bed post tx with nurse call, phone, tray, all needs met. Mental Status Patient Orientation: Person, Place, Situation Transfers SCALE: Activities may be completed with or without assistive devices. 2-Brxtxubmjd-ntnvwqz completes the activity by him/herself with no assistance from a helper. 5-Set-up or Clean-up Assistance-helper sets up or cleans up; patient completes activity. [place] assists only prior to or following the activity. 4-Supervision or Touching Assistance-helper provides verbal cues and/or touching/steadying and/or contact guard assistance as patient completes activity. Assistance may be provided throughout the activity or intermittently. 3-Partial/Moderate Assistance-helper does LESS THAN HALF the effort. [place] lifts, holds or supports trunk or limbs, but provides less than half the effort. 2-Substantial/Maximal Assistance-helper does MORE THAN HALF the effort. [place] lifts or holds trunk or limbs and provides more than half the effort. 7-Msqwntrjw-odvyzh does ALL the effort. Patient does none of the effort to complete the activity. Or, the assistance of 2 or more helpers is required for the patient to complete the activity. If activity was not attempted, code reason: 7-Patient Refused. 9-Not Applicable-not attempted and the patient did not perform the activity before the current illness, exacerbation or injury. 10-Not Attempted due to Environmental Limitations-(lack of equipment, weather restraints, etc.). 88-Not Attempted due to Medical Conditions or Safety Concerns. Roll Left & Right (QC): 6 Sit to Lying (QC): 6 Lying to Sitting/Side of Bed(Q: 6 Sit to Stand (QC): 3 Chair/Smp-gg-Llacj Xfer(QC): 4 Toilet Transfer (QC): 3 Patient needed to use the bedside commode after sitting up in bed, transfers with min assist from low surfaces but CGA for transfer. Patient needed assist with dressing and cleaning (OT) Exercises standing in parallel bars x3 for about 1 min each time while performing UE OT activity Treatments toileting, bed mobility and transfers, standing Assessment Current Status: Poor Progress Patient weaker this afternoon, shaky legs while standing, SOB with activity, needs significant time for rest breaks to recover PT Short Term Goals Short Term Goals Time Frame: Jul 12, 2019 Roll Left & Right: 6 Sit to lyin Lying to sitting on side of be: 6 Sit to stand: 4 Chair/yug-ij-qayvg transfer: 4 Toilet transfer: 4 Walk 10 feet: 4 Walk 50 feet with two turns: 4 PT Meter/Relay Craftsman Goals Meter/Relay Craftsman Goals PT Half-Way Goals Time Frame: Jul 26, 2019 Roll Left & Right (QC): 6 Sit to Lying (QC): 6 Lying-Sitting on Side/Bed(QC): 6 Sit to Stand (QC): 6 Chair/Awi-dl-Znswo Xfer(QC): 6 Toilet Transfer (QC): 6 Car Transfer (QC): 6 Walk 10 feet (QC): 6 Walk 50ft with 2 Turns (QC): 6 Walk 150 ft (QC): 6 Walking 10ft on Uneven Surface: 6 1 Step (curb) (QC): 4 4 Steps (QC): 4 PT Plan Problem List Problem List: Activity Tolerance, Functional Strength, Safety, Balance, Gait, Transfer Treatment/Plan Treatment Plan: Continue Plan of Care Treatment Plan: Bed Mobility, Concurrent Therapy, Education, Functional Activity Arabella, Functional Strength, Group Therapy, Gait, Safety, Therapeutic Exercise, Transfers Treatment Duration: Jul 26, 2019 Frequency: At least 5 of 7 days/Wk (IRF) Estimated Hrs Per Day: 1.5 hours per day Patient and/or Family Agrees t: Yes Safety Risks/Education Patient Education: Transfer Techniques, Correct Positioning, Safety Issues Teaching Recipient: Patient Teaching Methods: Demonstration, Discussion Response to Teaching: Reinforcement Needed Time/GCodes Time In: 1300 Time Out: 1345 Total Billed Treatment Time: 45 Total Billed Treatment 1 visit FA 45' Co-treated with OT for 45 min. PT worked on bed mobility, standing, transfers, OT worked on UE activity and positioning, toileting and cleaning, dressing. FRANCSICA MAHONEY PT Jul 05, 2019 13:51
--- NOTE | 2019-07-05 14:01 | ST Cognitive Linguistic Eval ---
Speech Evaluation-General Medical Diagnosis COPD/ PNA Onset Date: Jul 03, 2019 Therapy Diagnosis Therapy Diagnosis: Cognitive-Communication Referral Referring Physician: Dr. Vargas Medical History Pertinent Medical History: CAD, COPD, DM, HTN, Neuropathy, OA, Smoking Reviewed History: Yes Social History Current Living Status: Spouse Speech PLF-Current Status Prior Level of Function Patient reports having no issues with cognition prior to hospital admission. Subjective Patient was pleasant and cooperative for all evaluation tasks. Patient was lying in her bed for the duration of the evaluation. Language Eval: Auditory Comprehends Simple Yes/No Ques: Functional Indent/Objects Multiple [place]: Functional Ident/Pics in Multiple Cameron: Functional Follows 1-Step Commands: Functional Follows Complex Directions: Functional Follows General Conversations: Functional Language Eval: Verbal Language Completes Spontaneous Greeting: Functional Produces Auto, Serial Info: Functional Imitates Simple Words/Phrases: Functional Word Finding: Functional Requests Basic Needs: Functional States Basic Personal Info: Functional Expresses Complex Ideas: Functional Objective Cognitive Domain Attention: WNL Memory: Mild Problem Solving: Functional Executive Functions: WNL Visuospatial Skills: WNL Composite Severity Rating: WNL Clock Drawing Severity Rating: WNL Objective Formal/Standardized Tests [facility] Mental Status (UMS) Examination was administered. Results Patient was administered the SLUMS and scored 28/30 which falls within normal limits of cognitive function. Oral Motor/Speech Production Within functional limits. Impression Patient was admitted to the ARU s/p pneumonia. Patient was administered the SLUMS and scored 28/30 which falls within normal limits of cognitive function. Patient does not require skilled ST services for cognitive communication at this time. Speech Patient Assess Expression of Ideas/Wants: Expression (4) Understanding Verbal Content: Understands (4) Brief Interview-Mental Status: Yes Repetition of Three Words: Three (3) Temporal Orientation: Year: Correct (3) Temporal Orientation: Month: Accurate within 5 days(2) Temporal Orientation: Day: Correct (1) Recall : Wear to say "Sock": Yes, no cue required (2) Recall : Color: Yes, after cueing (1) Recall : Bed: No, could not recall (0) Memory/Recall Ability: Current season, That he or she is in a hsp/hsp unit Speech-Plan Patient/Family Goals Patient/Family Goals: Patient reports that she would like to return home to previous level of mobility. Treatment Plan Speech Therapy Treatment Plan: Discontinue ST Treatment Duration: Jul 05, 2019 Frequency: 1 time per week Estimated Hrs Per Day: .25 hour per day Rehab Potential: Fair Barriers to Learning: Medical status Pt/Family Agrees to Plan: Yes Safety Risks/Education Teaching Recipient: Patient Teaching Methods: Demonstration, Discussion Response to Teaching: Verbalize Understanding Education Topics Provided: Patient verbalized understanding of safety awareness and problem solving for when she is discharged from the ARU. Time Speech Therapy Time In: 11:30 Speech Therapy Time Out: 11:45 Total Billed Time: 15 Billed Treatment Time 1, SPSNDCOMP CECE [place] Jul 05, 2019 14:01
[2019-07-05] MEDS: POTASSIUM CL 10MEQ/50ML IVPB 50 ML IV SCH ×2 (14:06→14:54)
--- NOTE | 2019-07-05 14:17 | ST Dysphagia Evaluation ---
Speech Evaluation-General Medical Diagnosis COPD/ PNA Onset Date: Jul 03, 2019 Therapy Diagnosis Therapy Diagnosis: Oropharyngeal Dysphagia Precautions Precautions: Aspiration Referral Referring Physician: Dr. Vargas Medical History Pertinent Medical History: CAD, COPD, DM, HTN, Neuropathy, OA, Smoking Reviewed History: Yes Social History Current Living Status: Spouse Speech PLF/Current-Dysphagia Prior Level of Function Patient reports that her swallowing functions were normal prior to hospital admission. Subjective Patient was alert and cooperative for all evaluation tasks. Patient sat upright in her bed for the duration of the evaluation. Patient reported that she had just completed a breathing treatment this morning and choked on water immediately after. Patient indicated that she suspects this was due to her mouth feeling very dry. Cognitive Status Patient Orientation: Person, Place, Time, Eyes Open, Situation, Normal For Age Patient is oriented to all concepts. Oral Motor Skills Dentition: Natural Current Food Consistancy: Regular Ability to Follow Directions: Excellent Oral Expression Ability: No Impairment Voice Voice Phonatory-Based Quality: Breathy Voice Pitch: Normal Voice Loudness: Normal Face Facial Symmetry: Symmetrical Oral-Facial Assessment Oral-Facial Dentition: Normal Labial Seal Description: Normal Smile: Normal Puff Cheeks: Normal Lingual Protrusion: Normal Lingual ROM: Normal Lingual Strength: Normal Volitional Dry Swallow: Yes Voluntary Cough: Yes Can Clear Throat Volitionally: Yes Dysphagia Evaluation Consistencies Presented: Regular, Thin Liquid, Mechanical Soft, Pureed Oral phase was within functional limits. Pharyngeal phase was within functional limits. Dietary Recommendations: Regular Liquid Recommendations: Thin Swallowing Precautions: Alternate Liquids/Solids, Decreased Bolus 1/2 Tsp, Liquids from Straw, Small Bites and Sips, Sitting Upright 90 Degrees Dysphagia Evaluation Summary Patient was admitted to the ARU s/p pneumonia. Patient was presented with thin liquid via 1/2 tsp spoon 1X and via straw 2X's which resulted in no s/s of penetration or aspiration. Patient was then presented with pureed, mechanically soft, and regular consistency via 1/2 tsp spoon and required multiple swallows to clear the bolus. Patient requires skilled ST treatment at this time to educate and utilize compensatory strategies and monitor safe and efficient swallow function. Barriers to Learning Current medical status Speech Short Term Goals Short Term Goals Short Term Goals 1. Patient will tolerate least restrictive diet with s/s of aspiration at 90%. 2. Patient will utilize compensatory strategies as trained at 90% with minimal cues. Speech Alf Goals Alf Goals Patient will maintain adequate nutrition/hydration via safe and effective swallow function. Speech-Plan Patient/Family Goals Patient/Family Goals: Patient reports wanting to return to previous level of mobility and swallow function. Treatment Plan Speech Therapy Treatment Plan: Continue Plan of Care Treatment Duration: Jul 15, 2019 Frequency: 4 times per week Estimated Hrs Per Day: .5 hour per day Rehab Potential: Fair Barriers to Learning: Current medical status Pt/Family Agrees to Plan: Yes Safety Risks/Education Teaching Recipient: Patient Teaching Methods: Demonstration, Discussion Response to Teaching: Verbalize Understanding Education Topics Provided: Safe and effective swallow strategies Time Speech Therapy Time In: 11:45 Speech Therapy Time Out: 12:00 Total Billed Time: 15 Billed Treatment Time 1, CECE [place] Jul 05, 2019 14:17
[2019-07-05] MEDS ORDERED: KCL 20 MEQ TAB (K-DUR) PO NR (14:57)
[2019-07-05] MEDS: inSUlin ASPART (NovoLOG) 1 UNIT/0.01 ML (CHARGE PER UNIT) SC SCH ×2 (15:16→22:31)
[2019-07-05] MEDS: RT-ALBUTEROL/IPRATROPIUM 3 ML (DUONEB) VIAL INH PRN (15:35)
[2019-07-05] MEDS: HYDROCHLOROTHIAZIDE 25 MG (HCTZ) TAB PO SCH (17:30)
[2019-07-05] MEDS: ENOXAPARIN 40 MG/0.4 ML (LOVENOX) SYR SQ SCH (17:30)
[2019-07-05] MEDS: guaiFENesin/CODEINE (ROBITUSSIN AC) 10ML UDC PO PRN (17:42)
[2019-07-05 18:00] VITALS: BP 123/63
[2019-07-05] MEDS: RT-ALBUTEROL/IPRATROPIUM 3 ML (DUONEB) VIAL INH SCH ×2 (18:36→22:03)
--- NOTE | 2019-07-05 20:44 | PM&R Post Admission Assessment ---
PM&R HP Date of Visit: Jul 05, 2019 Time of Visit: 11:00 History of Present Illness CC: Pneumonia with COPD myopathy HPI: This is a 78yoWF clinic Pt of Dr. Clay who is known to us from inpatient rehab stay in March of last year with a history of severe COPD who was diagnosed with a pneumonia, placed on IV steroids and was able to stabilize in order to go back to inpatient rehab to begin her recovery. She reports she was using a nebulizer machine that was her mother's from 2004 and felt like there was black mold in the machine even after cleaning it and she felt like that is what caused the pneumonia and exacerbation of COPD. We will proceed on with management from an intensive rehab therapy program in order to regain enough function to discharge home. Past Kjxfgkq-Puqdua-Nprkcm Hx Past Med/Social Hx: Reviewed Nursing Past Med/Soc Hx, Reviewed and Corrections made Patient Social History Marrital Status: Employed/Student: retired Alcohol Use: Denies Use Recreational Drug Use: No Smoking Status: Former Smoker Former Smoker, Quit: Mar 27, 1988 Type Used: Cigarettes 2nd Hand Smoke Exposure: No Physical Abuse Screen: No Sexual Abuse: No Recent Foreign Travel: No Contact w/other who traveled: No Recent Hopitalizations: Yes Recent Infectious Disease Expo: No Immunizations Up To Date Tetanus Booster (TDap): Unknown Pediatric: Yes Date of Pneumonia Vaccine: November 01, 2008 Date of Influenza Vaccine: Apr 12, 2019 Seasonal Allergies Seasonal Allergies: No Past Medical History Surgeries: Adenoidectomy, Appendectomy, Cardiac, Eye Surgery, Gallbladder, Hysterectomy, Oophorectomy, Orthopedic, Tonsillectomy Respiratory: Asthma, Chronic Bronchitis, COPD, Emphysema, Pneumonia Cardiac: Coronary Artery Disease, High Cholesterol, Hypertension Neurological: Neuropathy : No Reproductive: Yes (ENDOMETRIAL CANCER--S/P HYST/BSO) Hysterectomy, Menopausal Gastrointestinal: Hepatitis, Ulcer Musculoskeletal: Degenerate Disk Disease, Arthritis, Back Injury, Chronic Back Pain Endocrine: Diabetes, Insulin dep Are Your Blood Sugars Over 250: Yes HEENT: Cataract Loss of Vision: Denies Hearing Impairment: Denies Cancer: Uterine Did You Recieve Any Treatments: Yes What Type of Treatment Did You: Surgical Intervention History of Blood Disorders: No Family History Patient reports no known family medical history. No Pertinent Family Hx Prior Level of Function Bed Mobility: 6 Transfers: 6 Gait: 6 Indoor Mobility (Ambulation): Independent Prior Devices Use: Walker Self Care: Needed Some Help Functional Cognition: Independent Occupation: retired Drive Self: No Current Level of Fuctioning Roll Left to Right: 6 Sit to Lyin Lying to Sitting/Side of Bed: 6 Sit to Stand: 3 Chair/Cqy-hz-Pfagr Xfer: 4 Does the Patient Walk: Yes Mode of Locomotion: Walk Anticipated Mode of Locomotion: Walk Walk 10 feet: 4 Walk 50 ft with 2 Turns: 88 Walk 150 ft: 88 Walking 10ft on uneven surface: 88 Gait Assistive Device: FWW Does the Pt Use a Wheelchair: Yes Wheelchair Distance: 150' Wheel 50 ft with 2 turns: 1 Wheel 150 ft: 1 Type of Wheelchair: Manual #of Steps: 88 1 Step (curb): 88 4 Steps: 88 12 Steps: 88 Picking up an Object: 88 Eatin (Per nursing/ pt, pt NPO at start of session. Pt given oral hygiene kit, required assist opening package; pt able to bring items to mouth. Per clinical judgement pt requires s/u.) Oral Hygiene: 5 (s/u) Shower/Bathe Self: 7 (group activities aide/ pt state shower completed this morning. Pt receives assist with bathing tasks at home. ) Upper Body Dressin (Robe handed to pt, pt requires assist for one arm to start. Able to don in w/c. ) Lower Body Dressin (Threading BLE necessary by OT, pt able to bring from knees over hips. ) On/Off Footwear: 1 (TD. ) Toileting Hygiene: 2 (max A, pt sit to stand from standard toilet with use of GBs and FWW. Pt requires max A for bottom/ jose alejandro hygiene.) PM&R Allergy/Meds/Data Review Allergies Coded Allergies: Sulfa (Sulfonamide Antibiotics) (Unverified Allergy, Unknown, HIVES, SOB, 10/27/06) morphine (Unverified Allergy, Unknown, Pt has received Lortab in the pas, 07/05/19) propoxyphene (Unverified Allergy, Unknown, UNKNOWN, 10/27/06) erythromycin base (Unverified Adverse Reaction, Unknown, SICK TO HER STOMACH, CRAMPS, VOMITING, 10/27/06) Home Medications Scheduled Amlodipine Besylate (Amlodipine Besylate), 5 MG PO DAILY, (Reported) Aspirin (Adult Low Dose Aspirin EC), 81 MG PO DAILY, (Reported) Atenolol (Atenolol), 25 MG PO HS, (Reported) Cholecalciferol (Vitamin D3) (Vitamin D-3), 2,000 UNIT PO DAILY, (Reported) Diphenhydramine HCl (Banophen), 50 MG PO HS, (Reported) Furosemide (Furosemide), 20 MG PO DAILY, (Reported) Hydrochlorothiazide (Hydrochlorothiazide), 25 MG PO HS, (Reported) Insulin Aspart (Novolog), 20 UNIT SQ DAILY, (Reported) Insulin Determir (Levemir), 10 UNITS SC DAILY, (Reported) Insulin Determir (Levemir), 15-20 UNITS SQ HS, (Reported) Losartan Potassium (Losartan Potassium), 25 MG PO DAILY, (Reported) Pantoprazole Sodium (Pantoprazole Sodium), 40 MG PO DAILY, (Reported) Prednisone (Prednisone), PO UD, (Reported) Ranolazine (Ranolazine ER), 1,000 MG PO BID, (Reported) Rosuvastatin Calcium (Rosuvastatin Calcium), 10 MG PO HS, (Reported) Spironolactone (Spironolactone), 25 MG PO DAILY, (Reported) Scheduled PRN Albuterol Sulfate (Albuterol Sulfate), 2.5 MG IH QID PRN for SHORTNESS OF BREATH, (Reported) Albuterol Sulfate (Ventolin Hfa), 2 PUFF INH Q4H PRN for SHORTNESS OF BREATH, (Reported) Hydrocodone/Acetaminophen (Hydrocodon-Acetaminophn 10-325), 1 TAB PO Q6H PRN for PAIN-MODERATE, (Reported) Promethazine HCl/Codeine (Prometh-Codein 6.25-10 mg/5 ml), 5-10 ML PO Q6H PRN for COUGH, (Reported) Discontinued Medications Cholecalciferol (Vitamin D3) (Vitamin D3), 2,000 UNIT PO DAILY, (Reported) Discontinued Reason: Prescription changed Insulin Detemir (Levemir Flextouch), 10 UNIT SQ 0700, (Reported) Discontinued Reason: New Order Levofloxacin (Levofloxacin), 500 MG PO Q48H, (Reported) [place]-3/Dha/Epa/Fish Oil (Fish Oil 1,000 mg Softgel), 1 EACH PO TID, (Reported) Discontinued Reason: No Longer Taking Oseltamivir Phosphate (Tamiflu), 75 MG PO BID Discontinued Reason: No Longer Taking Current Medications Current Medications Reviewed Laboratory Data Laboratory Tests 07/05/19 15:10: Glucometer 292H Review of Systems Constitutional: see HPI, dizziness, weakness EENTM: no symptoms reported Respiratory: cough, short of breath Cardiovascular: no symptoms reported Gastrointestinal: no symptoms reported Genitourinary: no symptoms reported Musculoskeletal: back pain Skin: no symptoms reported Psychiatric/Neurological: No Symptoms Reported All Other Systems Reviewed Negative Unless Noted: Yes Physical Exam Physical Exam Vital Signs Vital Signs - First Documented 07/05/19 12:09 Temp 36.6 Pulse 60 Resp 18 B/P (MAP) 140/83 Pulse Ox 95 O2 Delivery Room Air Capillary Refill : Less Than 3 Seconds Height, Weight, BMI Height: 5'4.00" Weight: 230lbs. 0.0oz. [id number]; 39.40 BMI Method:Stated General Appearance: No Apparent Distress, WD/WN, Chronically ill Eyes: Bilateral Eye Normal Inspection, Bilateral Eye PERRL HEENT: PERRL/EOMI, Normal ENT Inspection, Pharynx Normal Neck: Full Range of Motion, Normal Inspection, Non Tender, Supple, Carotid Bruit Respiratory: Chest Non Tender, No Accessory Muscle Use, No Respiratory Distress, Crackles, Decreased Breath Sounds, Wheezing Cardiovascular: Regular Rate, Rhythm, No Edema, No Gallop, No JVD, No Murmur, Normal Peripheral Pulses Gastrointestinal: Normal Bowel Sounds, No Organomegaly, No Pulsatile Mass, Non Tender, Soft Back: Normal Inspection, No CVA Tenderness, No Vertebral Tenderness Extremity: Normal Capillary Refill, Normal Inspection, Normal Range of Motion, Non Tender, No Calf Tenderness, No Pedal Edema Neurologic/Psychiatric: Alert, Oriented x3, No Motor/Sensory Deficits (generalized weakness), Normal 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, 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 as 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 Skin: Normal Color, Warm/Dry Lymphatic: No Adenopathy PM&R Medical Assessment & Plan REHAB/MEDICAL ASSESSMENT AND PLAN: REHAB IMPAIRMENT GROUP: PNA with debility ETIOLOGIC DIAGNOSIS: PNA with debility The comorbidities that impact the patients function and/or functional outcome by: severe COPD, chronic back pain, HTN, Fall risk REHAB PLAN: The patient is being admitted to our comprehensive inpatient rehabilitation facility and can tolerate the intensity of service consisting of at least: 180 minutes of therapy a day, 5 out of 7 days a week Rehab treatment will consist of: PT and OT will focus on slow recovery in order to return home The patient/family has a good understanding of our discharge process and will benefit from an interdisciplinary inpatient rehabilitation program. The patient has potential to make improvement and is in need of at least two of the following multidisciplinary therapies including but not limited to physical, occupational, speech, and prosthetics and orthotics. Additionally the patient will need services from respiratory, nutritional services, wound care, psychology, etc. (Customize this to each patient). Given the patients complex condition and risk of further medical complications, rehabilitation services cannot be safely or effectively provided at a lower level of care such as a longterm facility. BARRIERS TO DISCHARGE: Severe COPD and weakened state ESTIMATED LOS: 7 days DISPOSITION: Home RELEVANT CHANGES SINCE PREADMISSION SCREENING: I have compared the patients medical and functional status at the time of the preadmission screening and there are: no changes PROGNOSIS: Good REHABILITATION GOALS: 1.PT and OT will focus on increasing stamina and regain confidence and ADL capability All the above goals were reviewed with the patient and he/she is in agreement. By signing this document, I acknowledge that I have personally performed a full physical examination on this patient within 24 hours of admission to this inpatient rehabilitation facility and have determined the patient to be able to tolerate the above course of treatment at an intensive level for a reasonable period of time. I will be completing a detailed individualized Plan of Care for this patient by day #4 of the patients stay based upon the Preadmission Screen, the Post-Admission Evaluation, and the therapy evaluations. Admission Dx/Comorbidities: (1) Right lower lobe pneumonia Status: Acute ICD Codes: J18.1 - Lobar pneumonia, unspecified organism (2) Hypoxia Status: Acute ICD Codes: R09.02 - Hypoxemia (3) Generalized weakness Status: Acute ICD Codes: R53.1 - Weakness (4) COPD exacerbation Status: Acute ICD Codes: J44.1 - Chronic obstructive pulmonary disease with (acute) exacerbation (5) Debility ICD Codes: R53.81 - Other malaise (6) HTN (hypertension) Status: Acute ICD Codes: I10 - Essential (primary) hypertension (7) CAD (coronary artery disease) Status: Chronic ICD Codes: I25.10 - Atherosclerotic heart disease of [place] coronary artery without angina pectoris (8) IDDM (insulin dependent diabetes mellitus) Status: Acute ICD Codes: E11.9 - Type 2 diabetes mellitus without complications; 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
[2019-07-05] MEDS: diphenhydrAMINE 25 MG TAB (BENADRYL) PO SCH (22:10)
[2019-07-05] MEDS: ROSUVASTATIN 10 MG (CRESTOR) TABLET PO SCH (22:10)
[2019-07-05] MEDS: DOCUSATE SODIUM 100 MG (COLACE) CAP PO SCH (22:11)
[2019-07-05] MEDS: SENNA W/DOCUSATE (SENOKOT S) TABLET PO SCH (22:11)
[2019-07-05] MEDS: ATENOLOL 25 MG (TENORMIN) TAB PO SCH (22:11)
[2019-07-05] MEDS: RANOLAZINE ER 500 MG TAB (RANEXA) PO SCH (22:11)
[2019-07-05] MEDS: CEFEPIME INJECTION 2,000 MG in WATER (STERILE) FOR INJECTION 20 ML IV SCH (22:12)
[2019-07-05] MEDS: POLYETHYLENE GLYCOL 17 GM (MIRALAX) PACK PO SCH (22:12)
[2019-07-05] MEDS: PATCH REMOVAL TP SCH (22:13)
--- NOTE | 2019-07-05 22:42 | NUR ---
pt refused novolg but wants her levimir states she would take 22u for her accu of 299.. med given
[2019-07-06] MEDS: RT-ALBUTEROL/IPRATROPIUM 3 ML (DUONEB) VIAL INH SCH ×6 (03:19→23:28)
[2019-07-06 05:40] LABS: BASOPHILS % (AUTO) 0 % (0-10); EOSINOPHILS % (AUTO) 0 % (0-10); HEMATOCRIT 37 % (35-52); HEMOGLOBIN 12.9 G/DL (11.5-16.0); LYMPHOCYTES # (AUTO) 0.5 X 10^3 (1.0-4.0); LYMPHOCYTES % (AUTO) 7 % (12-44); MEAN CORPUSCULAR HEMOGLOBIN 34 PG (25-34); MEAN CORPUSCULAR HGB CONC 35 G/DL (32-36); MEAN CORPUSCULAR VOLUME 98 FL (80-99); MEAN PLATELET VOLUME 9.4 FL (7.4-10.4); MONOCYTES # (AUTO) 0.7 X 10^3 (0.0-1.0); MONOCYTES % (AUTO) 10 % (0-12); NEUTROPHILS # (AUTO) 5.9 X 10^3 (1.8-7.8); NEUTROPHILS % (AUTO) 83 % (42-75); PLATELET COUNT 158 10^3/uL (130-400); RED CELL DISTRIBUTION WIDTH 12.2 % (10.0-14.5); WHITE BLOOD COUNT 7.1 10^3/uL (4.3-11.0)
[2019-07-06 06:01] LABS: BILIRUBIN,TOTAL 0.7 MG/DL (0.1-1.0); CALCIUM 8.8 MG/DL (8.5-10.1); CREATININE SERUM 0.95 MG/DL (0.60-1.30); POTASSIUM 3.8 MMOL/L (3.6-5.0)
[2019-07-06 06:54] VITALS: BP 122/78
[2019-07-06] MEDS: inSUlin ASPART (NovoLOG) 1 UNIT/0.01 ML (CHARGE PER UNIT) SC SCH ×4 (06:55→20:51)
[2019-07-06] MEDS: VITAMIN D3 1,000 UNITS (CHOLECALCIFEROL) TABLET PO SCH (08:40)
[2019-07-06] MEDS: amLODIPine 5 MG (NORVASC) TAB PO SCH (08:40)
[2019-07-06] MEDS: RANOLAZINE ER 500 MG TAB (RANEXA) PO SCH ×2 (08:40→21:25)
[2019-07-06] MEDS: SPIRONOLACTONE 25 MG (ALDACTONE) TAB PO SCH (08:40)
[2019-07-06] MEDS: ASPIRIN E.C. 81 MG (ECOTRIN) TAB PO SCH (08:40)
[2019-07-06] MEDS: PANTOPRAZOLE 40 MG (PROTONIX) TAB PO SCH (08:40)
[2019-07-06] MEDS: LOSARTAN 25 MG (COZAAR) TAB PO SCH (08:40)
[2019-07-06] MEDS: SENNA W/DOCUSATE (SENOKOT S) TABLET PO SCH ×2 (08:40→20:10)
[2019-07-06] MEDS: DOCUSATE SODIUM 100 MG (COLACE) CAP PO SCH ×2 (08:40→20:10)
[2019-07-06] MEDS: LIDOCAINE 4% (SALONPAS) PATCH TOP SCH (08:49)
[2019-07-06] MEDS: POLYETHYLENE GLYCOL 17 GM (MIRALAX) PACK PO SCH ×2 (08:49→20:10)
[2019-07-06] MEDS: guaiFENesin/CODEINE (ROBITUSSIN AC) 10ML UDC PO PRN ×2 (08:49→15:29)
[2019-07-06] MEDS: predniSONE 20 MG TAB PO SCH (08:49)
--- NOTE | 2019-07-06 09:06 | PM&R Progress Note ---
Subjective HPI/CC On Admission Date Seen by Provider: Jul 06, 2019 Time Seen by Provider: 09:15 Subjective/Events-last exam Patient feels well No BM yet but taking laxatives No longer on O2 so DC continuous oximetry Cough continues but cough syrup really helps her No pain is reported Overall not as debilitated as she was last visit Conferred with RN Reviewed therapy notes Checked meds and labs Review of Systems General: Fatigue Pulmonary: Cough Objective Exam Vital Signs Vital Signs Date Time Temp Pulse Resp B/P (MAP) Pulse Ox O2 Delivery O2 Flow Rate FiO2 07/06/19 19:04 95 Room Air 07/06/19 17:50 35.9 51 12 122/66 (84) 07/06/19 12:36 21 Capillary Refill : Less Than 3 SecondsLess Than 3 Seconds General Appearance: No Apparent Distress, WD/WN, Chronically ill HEENT: PERRL/EOMI, Normal ENT Inspection, Pharynx Normal Neck: Full Range of Motion, Normal Inspection, Non Tender, Supple, Carotid Bruit Respiratory: Chest Non Tender, No Accessory Muscle Use, No Respiratory Distre ss, Crackles, Decreased Breath Sounds, Wheezing Cardiovascular: Regular Rate, Rhythm, No Edema, No Gallop, No JVD, No Murmur, Normal Peripheral Pulses Gastrointestinal: Normal Bowel Sounds, No Organomegaly, No Pulsatile Mass, Non Tender, Soft Back: Normal Inspection, No CVA Tenderness, No Vertebral Tenderness Extremity: Normal Capillary Refill, Normal Inspection, Normal Range of Motion, Non Tender, No Calf Tenderness, No Pedal Edema Neurologic/Psychiatric: Alert, Oriented x3, No Motor/Sensory Deficits (generalized weakness), 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 FIM Transfers Therapy Code Descriptions/Definitions Functional [place] Measure: 0=Not Assessed/NA 4=Minimal Assistance 1=Total Assistance 5=Supervision or Setup 2=Maximal Assistance 6=Modified [place] 3=Moderate Assistance 7=Complete IndependenceSCALE: Activities may be completed with or without assistive devices. 5-Pdwlhaseei-fzrljpa completes the activity by him/herself with no assistance from a helper. 5-Set-up or Clean-up Assistance-helper sets up or cleans up; patient completes activity. [place] assists only prior to or following the activity. 4-Supervision or Touching Assistance-helper provides verbal cues and/or touching/steadying and/or contact guard assistance as patient completes activity. Assistance may be provided throughout the activity or intermittently. 3-Partial/Moderate Assistance-helper does LESS THAN HALF the effort. [place] lifts, holds or supports trunk or limbs, but provides less than half the effort. 2-Substantial/Maximal Assistance-helper does MORE THAN HALF the effort. [place] lifts or holds trunk or limbs and provides more than half the effort. 1-Libdanpbz-frfnrs does ALL the effort. Patient does none of the effort to complete the activity. Or, the assistance of 2 or more helpers is required for the patient to complete the activity. If activity was not attempted, code reason: 7-Patient Refused. 9-Not Applicable-not attempted and the patient did not perform the activity before the current illness, exacerbation or injury. 10-Not Attempted due to Environmental Limitations-(lack of equipment, weather restraints, etc.). 88-Not Attempted due to Medical Conditions or Safety Concerns. Roll Left to Right (QC): 6 Sit to Lying (QC): 6 Sit to Stand (QC): 3 Chair/Mgm-je-Uryfm Xfer(QC): 4 Gait Training Does the Patient Walk?: Yes Walk 10 feet (QC): 4 Walk 50 ft with 2 Turns(QC): 88 Walk 150 ft (QC): 88 Walking 10ft/uneven surface-QC: 88 Gait Assistive Device: FWW Wheelchair Training Does the Pt Use a Wheelchair?: Yes Distance: 150' Wheel 50 ft with 2 turns (QC): 1 Wheel 150 ft (QC): 1 Type of Wheelchair: Manual Stair Training #of Steps: 88 1 Step (curb) (QC): 88 4 Steps (QC): 88 12 Steps (QC): 88 Balance Picking up an Object (QC): 88 ADL-Treatment Eating (QC): 5 (Per nursing/ pt, pt NPO at start of session. Pt given oral hygiene kit, required assist opening package; pt able to bring items to mouth. Per clinical judgement pt requires s/u.) Oral Hygiene (QC): 5 (s/u) Shower/Bathe Self (QC): 7 (welfare aide/ pt state shower completed this morning. Pt receives assist with bathing tasks at home. ) Upper Body Dressing (QC): 3 (Robe handed to pt, pt requires assist for one arm to start. Able to don in w/c. ) Lower Body Dressing (QC): 2 (Threading BLE necessary by OT, pt able to bring from knees over hips. ) On/Off Footwear (QC): 1 (TD. ) Toileting Hygiene (QC): 2 (max A, pt sit to stand from standard toilet with use of GBs and FWW. Pt requires max A for bottom/ jose alejandro hygiene.) Assessment/Plan Assessment and Plan Assess & Plan/Chief Complaint Assessment: PNA with debility DM HTN CAD h/o UTI Chronic back pain Plan: Monitor BP and BS Home meds Pain meds IRF protocol Nebs ICS (1) Debility (2) IDDM (insulin dependent diabetes mellitus) Status: Acute (3) CAD (coronary artery disease) Status: Chronic (4) Vertigo Status: Acute (5) HTN (hypertension) Status: Acute (1) Right lower lobe pneumonia Status: Acute (2) Hypoxia Status: Acute (3) Generalized weakness Status: Acute (4) COPD exacerbation Status: Acute (5) Debility (6) HTN (hypertension) Status: Acute (7) CAD (coronary artery disease) Status: Chronic (8) IDDM (insulin dependent diabetes mellitus) Status: Acute CHELY ESPARZA DO Jul 06, 2019 09:06
[2019-07-06] MEDS ORDERED: FUROSEMIDE 40 MG/4 ML INJ (LASIX) IVP NR (09:30)
--- NOTE | 2019-07-06 10:17 | Physical Therapy Daily Note ---
PT Daily Note-Current Subjective Pt sitting up in bed upon arrival. Pt agrees to PT. Pain Location: No Pain Reported Mental Status Patient Orientation: Person, Place, Time, Situation Transfers SCALE: Activities may be completed with or without assistive devices. 9-Yekxhukibi-qzflauy completes the activity by him/herself with no assistance from a helper. 5-Set-up or Clean-up Assistance-helper sets up or cleans up; patient completes activity. [place] assists only prior to or following the activity. 4-Supervision or Touching Assistance-helper provides verbal cues and/or touching/steadying and/or contact guard assistance as patient completes activity. Assistance may be provided throughout the activity or intermittently. 3-Partial/Moderate Assistance-helper does LESS THAN HALF the effort. [place] lifts, holds or supports trunk or limbs, but provides less than half the effort. 2-Substantial/Maximal Assistance-helper does MORE THAN HALF the effort. [place] lifts or holds trunk or limbs and provides more than half the effort. 0-Bbwjnqhht-ssopak does ALL the effort. Patient does none of the effort to complete the activity. Or, the assistance of 2 or more helpers is required for the patient to complete the activity. If activity was not attempted, code reason: 7-Patient Refused. 9-Not Applicable-not attempted and the patient did not perform the activity before the current illness, exacerbation or injury. 10-Not Attempted due to Environmental Limitations-(lack of equipment, weather restraints, etc.). 88-Not Attempted due to Medical Conditions or Safety Concerns. Sit to Lying (QC): 5 Lying to Sitting/Side of Bed(Q: 5 Sit to Stand (QC): 4 Pt fatigues and transfers are CGA instead of SBA. Weight Bearing Full Weight Bearing Full Weight Bearing Gait Training Does the Patient Walk?: Yes Distance: 15' x5 Walk 10 feet (QC): 4 Walk 50 ft with 2 Turns(QC): 4 Gait Persons Needed: 1 Gait Assistive Device: FWW Pt walks with slow leila and fatigues easily. Wheelchair Training Does the Pt Use a Wheelchair?: Yes Wheel 50 ft with 2 turns (QC): 5 Wheel 150 ft (QC): 5 Type of Wheelchair: Manual Treatments Pt transfers from Supine to EOB to standing then rests at EOB for Nurse to give morning meds. Pt completes several sit to stands. Pt then ambulates in hallway with frequent RB. Pt completes W/C mobility before returning to room. Pt resting in W/C with all needs met, call light next to pt, awaiting OT. Assessment Current Status: Fair Progress Pt is very talkative and needs redirection to stay on task. Pt fatigues easily and needs frequent RB. 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 Goals Compacting Machine Operator/Tender Goals PT Compacting Machine Operator/Tender Goals Time Frame: Jul 26, 2019 Roll Left & Right (QC): 6 Sit to Lying (QC): 6 Lying-Sitting on Side/Bed(QC): 6 Sit to Stand (QC): 6 Chair/Azt-oy-Mtvzf Xfer(QC): 6 Toilet Transfer (QC): 6 Car Transfer (QC): 6 Walk 10 feet (QC): 6 Walk 50ft with 2 Turns (QC): 6 Walk 150 ft (QC): 6 Walking 10ft on Uneven Surface: 6 1 Step (curb) (QC): 4 4 Steps (QC): 4 PT Plan Problem List Problem List: Activity Tolerance, Functional Strength, Safety, Balance, Gait, Transfer Treatment/Plan Treatment Plan: Continue Plan of Care Treatment Plan: Bed Mobility, Concurrent Therapy, Education, Functional Activity [place], Functional Strength, Group Therapy, Gait, Safety, Therapeutic Exercise, Transfers Treatment Duration: Jul 26, 2019 Frequency: At least 5 of 7 days/Wk (IRF) Estimated Hrs Per Day: 1.5 hours per day Patient and/or Family Agrees t: Yes Safety Risks/Education Patient Education: Gait Training, Transfer Techniques, Correct Positioning, W/C Management, Safety Issues Teaching Recipient: Patient Teaching Methods: Discussion Response to Teaching: Reinforcement Needed Time/GCodes Time In: 815 Time Out: 915 Total Billed Treatment Time: 60 Total Billed Treatment 1, FA (15m), GT x2 (30m) & WCH (15m) GEOVANNA MENDOZA SENIOR STATISTICAL PROGRAMMER Jul 06, 2019 10:17
--- NOTE | 2019-07-06 11:36 | Occupational Ther Daily Note ---
OT Current Status-Daily Note Subjective Pt alert, sitting in recliner. Pt agrees to therapy. Pt worried about being to tired to complete shower, encouraged pt to try. No c/o pain at this time. Mental Status/Objective Patient Orientation: Person, Place, Time, Situation Attachments: IV ADL-Treatment Pt agrees to shower. Pt takes increased time to complete tasks due to multiple recovery breaks and enjoying conversations. Due to increased fatigue, pt uses w/c to go to bathroom for shower. Pt completes functional transfers with CGA for safety and using AE when necessary. CGA for clothing manipulation in stance then pt cleanses self sitting on toilet. Pt completed shower using shower bench, grabbars, hand held shower and long handle sponge, min A to cleanse and dry pt's buttocks thoroughly while pt completed all other areas. Assist to doff socks. Dons/doffs upper body clothing by self after set up. Assist to thread L foot into briefs then assist to hike over hips, mod A. Pt able to sit EOB then lay down. After therapy, pt lying in bed with call light/phone in reach. All needs met in room. Therapy Code Descriptions/Definitions Functional [place] Measure: 0=Not Assessed/NA 4=Minimal Assistance 1=Total Assistance 5=Supervision or Setup 2=Maximal Assistance 6=Modified [place] 3=Moderate Assistance 7=Complete IndependenceSCALE: Activities may be completed with or without assistive devices. 1-Qlsukffksz-frjeiyf completes the activity by him/herself with no assistance from a helper. 5-Set-up or Clean-up Assistance-helper sets up or cleans up; patient completes activity. [place] assists only prior to or following the activity. 4-Supervision or Touching Assistance-helper provides verbal cues and/or touching/steadying and/or contact guard assistance as patient completes activity. Assistance may be provided throughout the activity or intermittently. 3-Partial/Moderate Assistance-helper does LESS THAN HALF the effort. [place] lifts, holds or supports trunk or limbs, but provides less than half the effort. 2-Substantial/Maximal Assistance-helper does MORE THAN HALF the effort. [place] lifts or holds trunk or limbs and provides more than half the effort. 1-Voczbjozh-lkvnah does ALL the effort. Patient does none of the effort to complete the activity. Or, the assistance of 2 or more helpers is required for the patient to complete the activity. If activity was not attempted, code reason: 7-Patient Refused. 9-Not Applicable-not attempted and the patient did not perform the activity before the current illness, exacerbation or injury. 10-Not Attempted due to Environmental Limitations-(lack of equipment, weather restraints, etc.). 88-Not Attempted due to Medical Conditions or Safety Concerns. Eating (QC): 6 (Pt demonstrates ability to set up meal and use regular utensils.) Shower/Bathe Self (QC): 3 Upper Body Dressing (QC): 5 Lower Body Dressing (QC): 3 On/Off Footwear: 2 Toileting Hygiene (QC): 4 Toilet Transfer (QC): 4 OT Short Term Goals Short Term Goals Time Frame: Jul 12, 2019 Upper body dressin Lower body dressin Putting on/taking off footwear: 3 OT Fdc Goals Fdc Goals Time Frame: Jul 19, 2019 Eating (QC): 5 Oral Hygiene (QC): 6 Toileting Hygiene (QC): 6 Shower/Bathe Self (QC): 3 Upper Body Dressing (QC): 6 Lower Body Dressing (QC): 3 On/Off Footwear (QC): 6 Additional Goals: 1-Demonstrate ADL Tasks, 2-Verbalize Understanding, 3- ImproveStrength/Arabella 1=Demonstrate adherence to instructed precautions during ADL tasks. 2=Patient will verbalize/demonstrate understanding of assistive devices/modifications for ADL. 3=Patient will improve strength/tolerance for activity to enable patient to perform ADL's. OT Education/Plan Problem List/Assessment Assessment: Decreased Activ Tolerance, Decreased UE Strength, Impaired Self- Care Skills Discharge Recommendations Plan/Recommendations: Continue POC Treatment Plan/Plan of Care Patient would benefit from OT for education, treatment and training to promote independence in ADL's, mobility, safety and/or upper extremity function for ADL's. Plan of Care: ADL Retraining, Caregiver Training Treatment Duration: Jul 19, 2019 Frequency: 2 times per month Estimated Hrs Per Day: 1.5 hours per day Agreement: Yes Rehab Potential: Fair Time/GCodes Start Time: 09:30 Stop Time: 11:00 Total Time Billed (hr/min): 90 Billed Treatment Time 1 visit-ADL 6 (90 min) MALIHA CATES Jul 06, 2019 11:36
[2019-07-06 12:36] VITALS: BP 122/78
--- NOTE | 2019-07-06 13:44 | NUR ---
RD ASSESSMENT PMHx: COPD; CAD; hypercholesterolemia; HTN; CA(uterine); DM PT INTERACTION: Pt was awake and pleasant during nutrition assessment. Pt states current appetite is poor and had been poor for a while, attributing it to pneumonia. Note avg PO intake of 44% x2d, per chart review. Pt states following a diabetic diet at home, and has no issues with chewing/swallowing food. Pt states some recent issues with nausea, but no episodes of emesis. Pt states dealing with chronic constipation, and "usually having a BM about every 4 days." Note no BM has been recorded and pt currently on bowel regimen of colace BID; senna BID; and miralax BID, per chart review. Pt states no recent wt changes. Note unable to determine recent wt hx, per chart review. Pt states current DM management is good and that her last HbA1c was 5.6, taken in 03/2019. ABNORMAL NUTRITION-RELATED LAB VALUES LOW: Pro 5.0; alb 3.0 HIGH: BUN 28; glu 269 Est. kcal needs: 5724-4989 kcal | 15-18 kcal/kg Est. Pro needs: 84-105 g Pro | 0.8-1.0 g Pro/kg PES STATEMENT: Inadequate oral intake (NI-2.1) related to loss of appetite | nausea | constipation as evidenced by pt interview | avg PO intake of 44% x2d INTERVENTION: Continue with current diet order of Regular diet. Pt may benefit from switching diet order to consistent CHO if blood glucose levels remain elevated. Add Glucerna (vary) to meals TID, for increased kcal intake. Provides 220 kcal and 10 g Pro per serving. Will continue to follow and reassess as pt needs and status change. MONITOR/EVALUATE: PO Intake; Plan of Care; Hydration Status; Weight Status; Lab Values Dana Archuleta, MS, RD, LD
--- NOTE | 2019-07-06 15:12 | Physical Therapy Daily Note ---
PT Daily Note-Current Subjective Pt laying supine in bed upon arrival. Pt agrees to PT. Pain Location: No Pain Reported Mental Status Patient Orientation: Person, Place, Time, Situation Transfers SCALE: Activities may be completed with or without assistive devices. 1-Tcfiutbsdo-vyuytmq completes the activity by him/herself with no assistance from a helper. 5-Set-up or Clean-up Assistance-helper sets up or cleans up; patient completes activity. [place] assists only prior to or following the activity. 4-Supervision or Touching Assistance-helper provides verbal cues and/or touching/steadying and/or contact guard assistance as patient completes activity. Assistance may be provided throughout the activity or intermittently. 3-Partial/Moderate Assistance-helper does LESS THAN HALF the effort. [place] lifts, holds or supports trunk or limbs, but provides less than half the effort. 2-Substantial/Maximal Assistance-helper does MORE THAN HALF the effort. [place] lifts or holds trunk or limbs and provides more than half the effort. 1-Npzdnmrik-gndodv does ALL the effort. Patient does none of the effort to complete the activity. Or, the assistance of 2 or more helpers is required for the patient to complete the activity. If activity was not attempted, code reason: 7-Patient Refused. 9-Not Applicable-not attempted and the patient did not perform the activity be fore the current illness, exacerbation or injury. 10-Not Attempted due to Environmental Limitations-(lack of equipment, weather restraints, etc.). 88-Not Attempted due to Medical Conditions or Safety Concerns. Weight Bearing Full Weight Bearing Full Weight Bearing Exercises Supine Ex: Ankle pumps, Quad Set, Glut sets, Heel Slides, Straight leg raise, Hip abd/add Supine Reps: 20 Treatments Pt completes Supine EX in bed. Pt resting at end of Rx. with all needs met, call light in hand. Assessment Current Status: Fair Progress Pt completes Supine EX with redirection when pt gets off task. PT Short Term Goals Short Term Goals Time Frame: Jul 12, 2019 Roll Left & Right: 6 Sit to lyin Lying to sitting on side of be: 6 Sit to stand: 4 Chair/jdx-eu-evxtt transfer: 4 Toilet transfer: 4 Walk 10 feet: 4 Walk 50 feet with two turns: 4 PT Senior Care Goals Senior Care Goals PT Endoscopy Technician Goals Time Frame: Jul 26, 2019 Roll Left & Right (QC): 6 Sit to Lying (QC): 6 Lying-Sitting on Side/Bed(QC): 6 Sit to Stand (QC): 6 Chair/[place] Xfer(QC): 6 Toilet Transfer (QC): 6 Car Transfer (QC): 6 Walk 10 feet (QC): 6 Walk 50ft with 2 Turns (QC): 6 Walk 150 ft (QC): 6 Walking 10ft on Uneven Surface: 6 1 Step (curb) (QC): 4 4 Steps (QC): 4 PT Plan Problem List Problem List: Activity Tolerance, Functional Strength Treatment/Plan Treatment Plan: Continue Plan of Care Treatment Plan: Bed Mobility, Concurrent Therapy, Education, Functional Activity Arabella, Functional Strength, Group Therapy, Gait, Safety, Therapeutic Exercise, Transfers Treatment Duration: Jul 26, 2019 Frequency: At least 5 of 7 days/Wk (IRF) Estimated Hrs Per Day: 1.5 hours per day Patient and/or Family Agrees t: Yes Safety Risks/Education Patient Education: Transfer Techniques, Correct Positioning, Safety Issues Teaching Recipient: Patient Teaching Methods: Discussion Response to Teaching: Verbalize Understanding Time/GCodes Time In: 1330 Time Out: 1400 Total Billed Treatment Time: 30 Total Billed Treatment 1, EX x2 (30m) GEOVANNA MENDOZA PTA Jul 06, 2019 15:12
--- NOTE | 2019-07-06 15:46 | NUR ---
CM/SS INITIAL ASSESSMENT Patient was admitted to ARU 07/05/19 for acute exacerbation COPD, pneumonia, hypoxia. Prior to hospitalization she resided at home with her spouse, Tonie Angel. She was functional within her own health limitations using DME for assistance, with noted decline after onset of pneumonia requiring hospitalization. Patient states she has "the works" DME at home, including FWW, wheelchair, bath chair, grab bars, high rise toilets. She has never had home O2 and has currently graduated off it after first requiring it in ED and during medical admission. She was established with [facility], and Karthik Chen was coming to her house 2x week for sessions. She desires to resume this upon her discharge from ARU and increase frequency if possible. [phone] CONTACTS: Patient's Spouse, Tonie Angel [phone] Daughter, Dr. Gisel Pennington [phone] PCP: Dr. Shanthi Clay PHARMACY: [facility] INSURED: Medicare, [facility] AA Patient has been on ARU before and indicates she understands the purpose of the Weekly Team Meeting. Patient will be reviewed next Thursday regarding post hospital care needs.
[2019-07-06 17:50] VITALS: BP 122/66
[2019-07-06] MEDS: ENOXAPARIN 40 MG/0.4 ML (LOVENOX) SYR SQ SCH (18:15)
[2019-07-06] MEDS: HYDROCHLOROTHIAZIDE 25 MG (HCTZ) TAB PO SCH (18:15)
--- NOTE | 2019-07-06 19:38 | Individualized Plan of Care ---
Individualized Plan of Care Rehab Nursing IPOC Order Admission Date Jul 05, 2019 at 10:53 Current Orders Orders Admission Order(Inpt,Obs,Sdc) (07/05/19 10:09) Vital Signs: Per Unit Policy ( 08,16,00 (07/05/19 10:09) Freddie Cooper (07/05/19 10:09) Sequential Compression Device Q4H (07/05/19 10:09) [employer] English Teacher-Inpt Rehab Con (07/05/19 10:09) Rehab Nursing Orders-Ipoc (07/05/19 10:09) Physical Therapy Rehab Orders (07/05/19 10:09) Occupational Therapy Rehab Ord (07/05/19 10:09) Speech Therapy Rehab Orders (07/05/19 10:09) Cbc With Automated Diff (07/06/19 06:00) Comprehensive Metabolic Panel (07/06/19 06:00) Intake & Output 06,, (07/05/19 10:09) Precautions (Aru) (07/05/19 10:09) Weekly Weight WEEK (07/05/19 10:09) Rehab-Intensity Of Therapy (07/05/19 10:09) Initiate Admission Nursing Pro .admission (07/05/19 10:09) Alprazolam Tablet (Xanax Tablet) (07/05/19 10:15) Calcium Carbonate Chew Tablet (Antacid C (07/05/19 10:15) Diphenhydramine Tablet (Benadryl Tablet) (07/05/19 10:15) Docusate Sodium Capsule (Colace Capsule) (07/05/19 21:00) Docusate Sodium Capsule (Colace Capsule) (07/05/19 10:15) Bisacodyl Suppository (Dulcolax Supposit (07/05/19 10:15) Lactulose Oral Solution (Enulose Oral So (07/05/19 10:15) Na Phos/Na Biphos Enema (Fleet Enema Bryan (07/05/19 10:15) Guaifenesin/Codeine Syrup (Robitussin Ac (07/05/19 10:15) Loperamide Tablet (Imodium Tablet) (07/05/19 10:15) Enoxaparin Injection (Lovenox Injection) (07/05/19 10:15) Melatonin Tablet (Melatonin Tablet) (07/05/19 10:15) Polyethylene Glycol Powder Pkt (Miralax (07/05/19 21:00) Ondansetron Injection (Zofran Injectio (07/05/19 10:15) Ondansetron Oral Dissolve Tab (Zofran (07/05/19 10:15) Senna S Tablet (Senokot S Tablet) (07/05/19 21:00) Admission Arrival Bed Request (07/05/19 10:57) Dys2 Mechanically Altered (07/05/19 Lunch) General/Regular (07/05/19 Lunch) Code/Resuscitation (07/05/19 12:20) Nothing By Mouth (07/05/19 Dinner) Albuterol/Ipra Inhalation Soln (Duoneb I (07/05/19 12:30) Aspirin Enteric Coated Tablet (Ecotrin T (07/06/19 09:00) Atenolol Tablet (Tenormin Tablet) (07/05/19 21:00) Cefepime Injection (Maxipime Injection) (07/05/19 21:00) Cholecalciferol Capsule/Tablet (Vitamin (07/06/19 09:00) Enoxaparin Injection (Lovenox Injection) (07/05/19 18:00) Hydrocodone/Apap 7.5/325 Tab (Lortab 7. (07/05/19 12:30) Hydrochlorothiazide Cap/Tablet (Hctz Cap (07/05/19 17:00) Lidocaine 4% Patch (Salonpas 4% Patch) (07/06/19 09:00) Losartan Tablet (Cozaar Tablet) (07/06/19 09:00) Ondansetron Injection (Zofran Injectio (07/05/19 12:30) Potassium Cl 10meq/50ml Ivpb (Kcl 10 Meq (07/05/19 12:30) Pantoprazole Tablet (Protonix Tablet) (07/06/19 09:00) Patch Removal (Patch Removal) (07/05/19 21:00) Ranolazine Er Tablet (Ranexa Er Tablet) (07/05/19 21:00) Rosuvastatin Tablet (Crestor Tablet) (07/05/19 21:00) Spironolactone Tablet (Aldactone Tablet) (07/06/19 09:00) Amlodipine Tablet (Norvasc Tablet) (07/06/19 09:00) Diphenhydramine Tablet (Benadryl Tablet) (07/05/19 21:00) Insulin Aspart (Novolog) (Novolog (Charg (07/05/19 14:30) Prednisone Tablet (Deltasone Tablet) (07/06/19 07:00) Consult Physician (07/05/19 12:20) Oxygen Delivery Set Up (07/05/19 12:20) Remove Rings In Anticipation O (07/05/19 12:20) Ns W/Kcl 20 Meq/L (Ns Iv W/Kcl 20 Meq/L) (07/05/19 12:30) Request For Dysphagia Services (07/05/19 12:20) Svn Small Volume Nebulizer (07/05/19 12:20) Ambulate 08,12,20 (07/05/19 12:25) Sequential Compression Device Q4H (07/05/19 12:25) Dvt/Vte Risk - Notifiy Physici Q4H (07/05/19 12:25) Potassium Chloride (Tablet) (K Dur Table (07/05/19 14:57) Patient Visit (07/05/19 ) Pt Eval Moderate Complexity (07/05/19 ) Functional Activities, Ea 15 (07/05/19 ) Patient Visit (07/05/19 ) Dysphagia Evaluation Std (07/05/19 ) Speech Sound Lang Comp (07/05/19 ) Albuterol/Ipra Inhalation Soln (Duoneb I (07/05/19 18:00) General/Regular (07/05/19 Dinner) Insulin Determir (Per Unit) (Levemir (Pe (07/05/19 22:21) Insulin Determir (Per Unit) (Levemir (Pe (07/06/19 07:00) Insulin Determir (Per Unit) (Levemir (Pe (07/06/19 21:00) Mat Initiate Protocol (07/06/19 12:36) Patient Visit (07/06/19 ) Functional Activities, Ea 15 (07/06/19 ) Gait Training, Ea 15 Min (07/06/19 ) Exercise Therap, Ea 15 Min (07/06/19 ) Wheelchair Mgmt/Propulsn 15min (07/06/19 ) Nystatin Oral Suspension (Mycostatin O (07/07/19 00:00) Nystatin Oral Suspension (Mycostatin O (07/06/19 19:59) Patient Visit (07/07/19 ) Dysphagia Therapy (07/07/19 ) Patient Visit (07/07/19 ) Exercise Therap, Ea 15 Min (07/07/19 ) Functional Activities, Ea 15 (07/07/19 ) Rehab Nursing Orders: Ongoing Assess. of Cognitive Status, Ongoing Assess. of Function Status, Bladder Training, Bowel Management, Disease Management & Educaiton, DVT Prophylaxis, Fall Prevention, Fluid/Electrolyte/Nutrition Mgmt, Infection Prevention, Medication Management & Education, Management of Risks & Complications, Management of Skin Intergrity, Nutrition Management, Pain Management, Patient/Family Support, Safety Management Intensity of Therapy to be met Patient to be seen: Min.3h per day/5 of 7d PT IPOC Problem List: Activity Tolerance, Functional Strength Treatment Plan: Continue Plan of Care Bed Mobility, Concurrent Therapy, Education, Functional Activity [place], Functional Strength, Group Therapy, Gait, Safety, Therapeutic Exercise, Transfers Treatment Duration: Jul 26, 2019 Frequency: At least 5 of 7 days/Wk (IRF) Estimated Hrs Per Day: 1.5 hours per day OT IPOC Problems: Decreased Activ Tolerance, Decreased UE Strength, Impaired Self-Care Skills OT Treatment, Training and Edu: Yes Plan of Care: ADL Retraining, Caregiver Training Treatment Duration: Jul 19, 2019 Frequency: 2 times per month Estimated Hrs Per Day: 1.[address] IPOC Speech Therapy Treatment Plan: Continue Plan of Care Treatment Duration: Jul 15, 2019 Frequency: 4 times per week Estimated Hrs Per Day: .5 hour per day [employer] English Teacher/Case Mgmt [employer] English Teacher/Case Managemen: Discharge Planning Dietitian/Rubber Mold Maker Dietitian/Rubber Mold Maker to monitor nutritional status and make changes and/or recommendations as needed and work with speech pathology on dietary upgrades as the occur. Physician IPOC Medical Issues being managed closely and that require the 24 hour availability of a physician: Severe COPD with PNA will need close monitoring of physician during recovery due to high risk for decompensation Medical Issues: Bowel/Bladder Function, DVT Prophylaxis, Falls Precautions, Fluid/Electrolyte/Nutrition Balance, Infection Protection Brief Synthesis of Preadmission Screen, Post-Admission Evaluation, and Therapy Evaluations: PT and OT will focus on regaining her ADL's and strength and stamina while recovering from PNA Medical Prognosis: Good Anticipated Length of Stay: 7 days CHELY ESPARZA DO Jul 06, 2019 19:38
[2019-07-06] MEDS ORDERED: NYSTATIN ORAL SUSP 5 ML UDC ONE (19:59)
[2019-07-06] MEDS: CEFEPIME INJECTION 2,000 MG in WATER (STERILE) FOR INJECTION 20 ML IV SCH (21:24)
[2019-07-06] MEDS: ROSUVASTATIN 10 MG (CRESTOR) TABLET PO SCH (21:24)
[2019-07-06] MEDS: ATENOLOL 25 MG (TENORMIN) TAB PO SCH (21:25)
[2019-07-06] MEDS: diphenhydrAMINE 25 MG TAB (BENADRYL) PO SCH (21:25)
[2019-07-06] MEDS: HYDROcodone/APAP 7.5 MG/325 MG (LORTAB, LORCET PLUS) TABLET PO PRN (21:25)
[2019-07-06] MEDS: PATCH REMOVAL TP SCH (21:27)
[2019-07-06] MEDS: NYSTATIN ORAL SUSP 5 ML UDC PO SCH (23:34)
[2019-07-07] MEDS: guaiFENesin/CODEINE (ROBITUSSIN AC) 10ML UDC PO PRN ×3 (00:45→23:41)
[2019-07-07] MEDS: RT-ALBUTEROL/IPRATROPIUM 3 ML (DUONEB) VIAL INH SCH ×5 (01:47→22:47)
[2019-07-07 05:00] VITALS: BP 145/71
[2019-07-07] MEDS: inSUlin ASPART (NovoLOG) 1 UNIT/0.01 ML (CHARGE PER UNIT) SC SCH ×4 (05:25→20:38)
[2019-07-07] MEDS: NYSTATIN ORAL SUSP 5 ML UDC PO SCH ×4 (06:17→23:38)
[2019-07-07] MEDS: predniSONE 20 MG TAB PO SCH (06:17)
[2019-07-07] MEDS: ASPIRIN E.C. 81 MG (ECOTRIN) TAB PO SCH (08:24)
[2019-07-07] MEDS: LOSARTAN 25 MG (COZAAR) TAB PO SCH (08:24)
[2019-07-07] MEDS: RANOLAZINE ER 500 MG TAB (RANEXA) PO SCH ×2 (08:25→21:40)
[2019-07-07] MEDS: amLODIPine 5 MG (NORVASC) TAB PO SCH (08:25)
[2019-07-07] MEDS: SPIRONOLACTONE 25 MG (ALDACTONE) TAB PO SCH (08:26)
[2019-07-07] MEDS: DOCUSATE SODIUM 100 MG (COLACE) CAP PO SCH ×2 (08:26→21:42)
[2019-07-07] MEDS: SENNA W/DOCUSATE (SENOKOT S) TABLET PO SCH ×2 (08:26→21:42)
[2019-07-07] MEDS: VITAMIN D3 1,000 UNITS (CHOLECALCIFEROL) TABLET PO SCH (08:26)
[2019-07-07] MEDS: PANTOPRAZOLE 40 MG (PROTONIX) TAB PO SCH (08:26)
[2019-07-07] MEDS: POLYETHYLENE GLYCOL 17 GM (MIRALAX) PACK PO SCH ×2 (08:27→21:42)
[2019-07-07] MEDS: LIDOCAINE 4% (SALONPAS) PATCH TOP SCH (08:31)
--- NOTE | 2019-07-07 08:41 | Consultation ---
History of Present Illness History of Present Illness Patient Consulted On(ange/time) 07/07/19 08:41 Date Seen by Provider: Jul 07, 2019 Time Seen by Provider: 08:40 History of Present Illness PT IS A 79 Y/O FEMALE WHO IS WELL KNOWN TO ME FROM CLINIC. SHE WAS RECENTLY ADMITTED TO 4TH FLOOR, AND TRANSFERRED DOWN TO INPATIENT REHAB FOR STRENGTHENING AFTER AN ACUTE EPISODE OF PNEUMONIA. SHE LIVES AT HOME WITH HER SPOUSE, HAS PREVIOUSLY BENEFITED [facility] INPATIENT REHAB, AND IT WAS DECIDED THAT [facility] WOULD AGAIN BENEFIT FROM THERAPY ON THE INPATIENT REHAB UNIT PRIOR TO DISCHARGE TO HOME. Allergies and Home Medications Allergies Coded Allergies: Sulfa (Sulfonamide Antibiotics) (Unverified Allergy, Unknown, HIVES, SOB, 10/27/06) morphine (Unverified Allergy, Unknown, Pt has received Lortab in the pas, 07/05/19) propoxyphene (Unverified Allergy, Unknown, UNKNOWN, 10/27/06) erythromycin base (Unverified Adverse Reaction, Unknown, SICK TO HER STOMACH, CRAMPS, VOMITING, 10/27/06) Home Medications Albuterol Sulfate 2.5 Mg/3 Ml Vial.neb, 2.5 MG IH QID PRN for SHORTNESS OF BREATH, (Reported) Albuterol Sulfate 18 Gm Hfa.aer.ad, 2 PUFF INH Q4H PRN for SHORTNESS OF BREATH, (Reported) Amlodipine Besylate 5 Mg Tablet, 5 MG PO DAILY, (Reported) Aspirin 81 Mg Tablet.dr, 81 MG PO DAILY, (Reported) Atenolol 25 Mg Tablet, 25 MG PO HS, (Reported) Cholecalciferol (Vitamin D3) 2,000 Unit Tablet, 2,000 UNIT PO DAILY, (Reported) Diphenhydramine HCl 25 Mg Capsule, 50 MG PO HS, (Reported) TAKES 2 (25MG) CAPSULES Furosemide 20 Mg Tablet, 20 MG PO DAILY, (Reported) Hydrochlorothiazide 25 Mg Tablet, 25 MG PO HS, (Reported) Hydrocodone/Acetaminophen 1 Each Tablet, 1 TAB PO Q6H PRN for PAIN-MODERATE, (Reported) Insulin Aspart 100 Unit/1 Ml Susp, 20 UNIT SQ DAILY, (Reported) Insulin Determir 1,000 Units/10 Ml Soln, 10 UNITS SC DAILY, (Reported) Insulin Determir 1,000 Units/10 Ml Soln, 15-20 UNITS SQ HS, (Reported) Losartan Potassium 25 Mg Tablet, 25 MG PO DAILY, (Reported) Miconazole Nitrate 90 Gm Powder, 0 GM TOP BID Prescribed by: CHELY ESPARZA on 07/18/19834 Nystatin 15 Gm Cream..g., 0 GM TP TID Prescribed by: CHELY ESPARZA on 07/18/19834 Pantoprazole Sodium 40 Mg Tablet.dr, 40 MG PO DAILY, (Reported) Prednisone 10 Mg Tab.ds.pk, 10 MG PO DAILY Take 4 tabs(40mg)daily,decrease by 1 tab(10MG)daily. Prescribed by: CHELY ESPARZA on 07/18/19834 Promethazine HCl/Codeine 5 Ml Syrup, 5-10 ML PO Q6H PRN for COUGH, (Reported) Ranolazine 1,000 Mg Tab.er.12h, 1,000 MG PO BID, (Reported) Rosuvastatin Calcium 10 Mg Tablet, 10 MG PO HS, (Reported) Spironolactone 25 Mg Tablet, 25 MG PO DAILY, (Reported) Patient Home Medication List Home Medication List Reviewed: Yes Past Ehuktvj-Nmpzhc-Omqpmd Hx Past Med/Social Hx: Reviewed Nursing Past Med/Soc Hx, Reviewed and Corrections made Patient Social History Alcohol Use: Denies Use Recreational Drug Use: No Smoking Status: Former Smoker Type Used: Cigarettes Former Smoker, Quit: Mar 27, 1988 2nd Hand Smoke Exposure: No Recent Foreign Travel: No Contact w/Someone Who Travel: No Recent Infectious Disease Expo: No Recent Hopitalizations: Yes Immunizations Up To Date Tetanus Booster (TDap): Unknown PED Vaccines UTD: Yes Date of Pneumonia Vaccine: November 01, 2008 Date of Influenza Vaccine: Apr 12, 2019 Seasonal Allergies Seasonal Allergies: No Past Medical History Surgeries: Yes Adenoidectomy, Appendectomy, Cardiac, Eye Surgery, Gallbladder, Hysterectomy, Oophorectomy, Orthopedic, Tonsillectomy Respiratory: Yes Asthma, COPD Cardiac: Yes Coronary Artery Disease, High Cholesterol, Hypertension Neurological: Yes (PERIPHERAL NEUROPATHY) Neuropathy : No Reproductive Disorders: Yes (ENDOMETRIAL CANCER--S/P HYST/BSO) 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, 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 No Pertinent Family Hx Review of Systems Review of Systems General: No Chills, No Night Sweats; Fatigue; No Malaise, No Appetite, No Other HEENT: No Dysphasia; Sinus Congestion, Sore Throat Pulmonary: Cough Cardiovascular: Edema Gastrointestinal: Nausea Genitourinary: Frequency Musculoskeletal: back pain Neurological: Weakness All Other Systems Reviewed All Other Systems Reviewed: Yes Physical Exam Vital Signs Vital Signs - First Documented 07/05/19 07/06/19 12:09 12:36 Temp 36.6 Pulse 60 Resp 18 B/P (MAP) 140/83 Pulse Ox 95 O2 Delivery Room Air FiO2 21 Capillary Refill : Less Than 3 SecondsLess Than 3 Seconds Height, Weight, BMI Height: 5'4.00" Weight: 230lbs. 0.0oz. [id number]; 39.40 BMI Method:Stated General Appearance: WD/WN, Mild Distress (DUE TO ILLNESS/BREATHING) Eyes: Bilateral Eye Normal Inspection, Bilateral Eye PERRL, Bilateral Eye EOMI HEENT: PERRL/EOMI, Pharynx Normal Neck: Full Range of Motion, Supple Respiratory: Crackles (BASES), Decreased Breath Sounds Cardiovascular: Regular Rate, Rhythm Gastrointestinal: Normal Bowel Sounds, No Organomegaly, No Pulsatile Mass, Non Tender, Soft Rectal: Deferred Back: Normal Inspection, No Vertebral Tenderness Extremity: Normal Capillary Refill, Non Tender, No Calf Tenderness Neurologic/Psychiatric: Alert, Oriented x3, No Motor/Sensory Deficits, Normal Mood/Affect Skin: Normal Color, Warm/Dry Lymphatic: No Adenopathy Assessment/Plan Assessment/Plan Admission Status: Inpatient Order (span 2 midnights) Reason for Inpatient Admission: INPATIENT REHAB ADMISSON FOR STRENGTHENING -WILL TAKE AT LEAST 7-14 DAYS DEPENDING ON HOW WELL PT ADVANCES WITH THERAPY Problems: (1) Right lower lobe pneumonia Qualifiers: Qualified Codes: J18.1 - Lobar pneumonia, unspecified organism Assessment & Plan: PT TO CONTINUE WITH ANTIBIOTICS, INTERMITTENT CHEST XRAYS TO DOCUMENT IMPROVEMENT, BREATHING TREATMENTS, WILL CONTINUE WITH OXYGEN, ASSESS PERIODICALLY FOR ABILITY TO DECREASE OR STOP OXYGEN VERSUS INTERMEDIATE NEED FOR OXYGEN THERAPY (2) Hypoxia (3) Generalized weakness Assessment & Plan: PT, OT, STRENGTHENING (4) COPD exacerbation Assessment & Plan: STEROIDS, BREATHING TREATMENTS, WEAN OXYGEN ABLE (5) Debility (6) HTN (hypertension) Qualifiers: Qualified Codes: I10 - Essential (primary) hypertension Assessment & Plan: RESUMED HOME REGIMEN (7) CAD (coronary artery disease) Qualifiers: Qualified Codes: I25.118 - Atherosclerotic heart disease of [place] coronary artery with other forms of angina pectoris (8) IDDM (insulin dependent diabetes mellitus) Assessment & Plan: CONTINUE WITH HOME INSULIN REGIMEN CONTINUE WITH DIABETIC DIET Clinical Quality Measures DVT/VTE Risk/Contraindication: Risk Factor Score Per Nursin RFS Level Per Nursing on Admit: 3=High KARY MEHTA MD Jul 07, 2019 08:41
--- NOTE | 2019-07-07 09:36 | Occupational Ther Daily Note ---
OT Current Status-Daily Note Subjective Pt alert, lying in bed. Pt motivated to participate in therapy though takes increased time to complete tasks due to decreased activity tolerance and the need for multiple recovery breaks. No c/o pain only fatigue from not sleeping last night due to coughing. Nrsg and physician in room throughout therapy to assess pt and give medications. Mental Status/Objective Patient Orientation: Person, Place, Time, Situation Attachments: IV ADL-Treatment Pt completed own set up of meal and used regular utensils to eat. Supine to EOB, mod I. CGA due to increased fatigue/weakness for functional transfers. Pt declined shower, wanting a sponge bath. CGA to manipulate clothing and assistance to cleanse self after voiding, pt stated that she was weak. Pt then sat at sink to complete oral care, grooming and sponge bath. Pt worked on UE strengthening while propelling w/c out of bathroom and into room. CGA for sit to stand and to ambulate to recliner. After session, pt sitting in recliner with call light/phone in reach. All needs met in room. Therapy Code Descriptions/Definitions Functional [place] Measure: 0=Not Assessed/NA 4=Minimal Assistance 1=Total Assistance 5=Supervision or Setup 2=Maximal Assistance 6=Modified [place] 3=Moderate Assistance 7=Complete IndependenceSCALE: Activities may be completed with or without assistive devices. 0-Pjijghrvhe-sqljojr completes the activity by him/herself with no assistance from a helper. 5-Set-up or Clean-up Assistance-helper sets up or cleans up; patient completes activity. [place] assists only prior to or following the activity. 4-Supervision or Touching Assistance-helper provides verbal cues and/or touching/steadying and/or contact guard assistance as patient completes activity. Assistance may be provided throughout the activity or intermittently. 3-Partial/Moderate Assistance-helper does LESS THAN HALF the effort. [place] lifts, holds or supports trunk or limbs, but provides less than half the effort. 2-Substantial/Maximal Assistance-helper does MORE THAN HALF the effort. [place] lifts or holds trunk or limbs and provides more than half the effort. 6-Truwkiiwv-diiolt does ALL the effort. Patient does none of the effort to complete the activity. Or, the assistance of 2 or more helpers is required for the patient to complete the activity. If activity was not attempted, code reason: 7-Patient Refused. 9-Not Applicable-not attempted and the patient did not perform the activity before the current illness, exacerbation or injury. 10-Not Attempted due to Environmental Limitations-(lack of equipment, weather restraints, etc.). 88-Not Attempted due to Medical Conditions or Safety Concerns. Eating (QC): 6 Oral Hygiene (QC): 6 Toileting Hygiene (QC): 3 Toilet Transfer (QC): 4 OT Short Term Goals Short Term Goals Time Frame: Jul 12, 2019 Upper body dressin Lower body dressin Putting on/taking off footwear: 3 OT Supercharger Repair Supervisor Goals Fpc Goals Time Frame: Jul 19, 2019 Eating (QC): 5 Oral Hygiene (QC): 6 Toileting Hygiene (QC): 6 Shower/Bathe Self (QC): 3 Upper Body Dressing (QC): 6 Lower Body Dressing (QC): 3 On/Off Footwear (QC): 6 Additional Goals: 1-Demonstrate ADL Tasks, 2-Verbalize Understanding, 3- ImproveStrength/[place] 1=Demonstrate adherence to instructed precautions during ADL tasks. 2=Patient will verbalize/demonstrate understanding of assistive devices/modifications for ADL. 3=Patient will improve strength/tolerance for activity to enable patient to perform ADL's. OT Education/Plan Problem List/Assessment Assessment: Decreased Activ Tolerance, Decreased UE Strength, Impaired Self- Care Skills Discharge Recommendations Plan/Recommendations: Continue POC Treatment Plan/Plan of Care Patient would benefit from OT for education, treatment and training to promote independence in ADL's, mobility, safety and/or upper extremity function for ADL's. Plan of Care: ADL Retraining, Caregiver Training Treatment Duration: Jul 19, 2019 Frequency: 2 times per month Estimated Hrs Per Day: 1.5 hours per day Agreement: Yes Rehab Potential: Fair Time/GCodes Start Time: 08:00 Stop Time: 09:30 Total Time Billed (hr/min): 90 Billed Treatment Time 1 visit-ADL 6 (90 min) MALIHA CATES Jul 07, 2019 09:36
[2019-07-07] MEDS: HYDROcodone/APAP 7.5 MG/325 MG (LORTAB, LORCET PLUS) TABLET PO PRN ×2 (12:59→21:58)
--- NOTE | 2019-07-07 13:18 | Physical Therapy Daily Note ---
PT Daily Note-Current Subjective Pt sitting in recliner with feet elevated upon arrival. Pt agrees to PT but advises that she is not feeling well today due to her Thrush and feeling weak. Transfers SCALE: Activities may be completed with or without assistive devices. 1-Henbthgcjd-qnnskqj completes the activity by him/herself with no assistance from a helper. 5-Set-up or Clean-up Assistance-helper sets up or cleans up; patient completes activity. [place] assists only prior to or following the activity. 4-Supervision or Touching Assistance-helper provides verbal cues and/or touching/steadying and/or contact guard assistance as patient completes activity. Assistance may be provided throughout the activity or intermittently. 3-Partial/Moderate Assistance-helper does LESS THAN HALF the effort. [place] lifts, holds or supports trunk or limbs, but provides less than half the effort. 2-Substantial/Maximal Assistance-helper does MORE THAN HALF the effort. [place] lifts or holds trunk or limbs and provides more than half the effort. 7-Gfgemvhwe-pmzxmz does ALL the effort. Patient does none of the effort to complete the activity. Or, the assistance of 2 or more helpers is required for the patient to complete the activity. If activity was not attempted, code reason: 7-Patient Refused. 9-Not Applicable-not attempted and the patient did not perform the activity before the current illness, exacerbation or injury. 10-Not Attempted due to Environmental Limitations-(lack of equipment, weather restraints, etc.). 88-Not Attempted due to Medical Conditions or Safety Concerns. Weight Bearing Full Weight Bearing Full Weight Bearing Exercises Supine Ex: Ankle pumps, Quad Set, Glut sets, Heel Slides, Hip abd/add Supine Reps: 20 Treatments Pt completes Supine EX and HEP gone over verbally. Pt declines needing paper copy as she feels comfortable with them and remembers Ex. CONTINUOUS IMPROVEMENT ENGINEER and pt discuss benefit of PT, HEP, AD and goals for home as well as continued need for PT after D/C from ARU and proper breathing for improved O2 needed for Ex. Pt has questions and feels better after discussion. Pt resting at end of Rx with all needs met, call light in hand and lunch in front of pt. Assessment Current Status: Fair Progress Pt feeling weak and fatigues quicker today during Rx. PT Short Term Goals Short Term Goals Time Frame: Jul 12, 2019 Roll Left & Right: 6 Sit to lyin Lying to sitting on side of be: 6 Sit to stand: 4 Chair/sta-uv-zpsey transfer: 4 Toilet transfer: 4 Walk 10 feet: 4 Walk 50 feet with two turns: 4 PT Snf Goals Snf Goals PT Snf Goals Time Frame: Jul 26, 2019 Roll Left & Right (QC): 6 Sit to Lying (QC): 6 Lying-Sitting on Side/Bed(QC): 6 Sit to Stand (QC): 6 Chair/Gpy-tk-Dyray Xfer(QC): 6 Toilet Transfer (QC): 6 Car Transfer (QC): 6 Walk 10 feet (QC): 6 Walk 50ft with 2 Turns (QC): 6 Walk 150 ft (QC): 6 Walking 10ft on Uneven Surface: 6 1 Step (curb) (QC): 4 4 Steps (QC): 4 PT Plan Problem List Problem List: Activity Tolerance, Functional Strength, Safety, Balance, Gait, Transfer Treatment/Plan Treatment Plan: Continue Plan of Care Treatment Plan: Bed Mobility, Concurrent Therapy, Education, Functional Activity [place], Functional Strength, Group Therapy, Gait, Safety, Therapeutic Exercise, Transfers Treatment Duration: Jul 26, 2019 Frequency: At least 5 of 7 days/Wk (IRF) Estimated Hrs Per Day: 1.5 hours per day Patient and/or Family Agrees t: Yes Safety Risks/Education Patient Education: Transfer Techniques, Correct Positioning, Safety Issues Teaching Recipient: Patient Teaching Methods: Discussion Response to Teaching: Verbalize Understanding Time/GCodes Time In: 1100 Time Out: 1200 Total Billed Treatment Time: 60 Total Billed Treatment 1, EX (20m) & FA x3 (40m) GEOVANNA MENDOZA CONTINUOUS IMPROVEMENT ENGINEER Jul 07, 2019 13:18
--- NOTE | 2019-07-07 14:11 | Speech Therapy Daily Note ---
Speech Daily Progress Note Subjective Date Seen by Provider: Jul 07, 2019 Time Seen by Provider: 09:30 Patient was alert, pleasant, and cooperative for all therapy tasks. Patient was sitting upright in her chair for the duration of treatment. Patient indicated that she had received two breathing treatments within a 6 hour time span from last night and was feeling very dry and hoarse. Additionally, patient reported that she had thrush and her throat was painful, but feeling better due to the mouth wash medication. Objective Patient completed compensatory strategies of small bites, small sips, and alternating liquids and solids with 90% accuracy. Assessment Assessment Current Status: Good Progress Treatment Plan Continue Plan of Care Speech Short Term Goals Short Term Goals Short Term Goals 1. Patient will tolerate least restrictive diet with s/s of aspiration at 90%. 2. Patient will utilize compensatory strategies as trained at 90% with minimal cues. Speech Editor [place] [employer] Goals [facility] Goals Patient will maintain adequate nutrition/hydration via safe and effective swallow function. Speech-Plan Patient/Family Goals Patient/Family Goals: Patient reports that she wishes to return home to previous level of mobility and independence. Treatment Plan Speech Therapy Treatment Plan: Continue Plan of Care Treatment Duration: Jul 15, 2019 Frequency: 4 times per week Estimated Hrs Per Day: .5 hour per day Rehab Potential: Fair Barriers to Learning: Current medical status Pt/Family Agrees to Plan: Yes Safety Risks/Education Teaching Recipient: Patient Teaching Methods: Demonstration, Discussion Response to Teaching: Verbalize Understanding Education Topics Provided: Continuation of compensatory strategies during meal time. Time Speech Therapy Time In: 09:30 Speech Therapy Time Out: 10:00 Total Billed Time: 30 Billed Treatment Time 1, DYST CECE [place] Jul 07, 2019 14:11
--- NOTE | 2019-07-07 15:05 | PM&R Progress Note ---
Subjective HPI/CC On Admission Date Seen by Provider: Jul 07, 2019 Time Seen by Provider: 08:45 Subjective/Events-last exam Pt feels pretty good. Cough continues. Thrush being treated with Nystatin swish and swallow. Last BM was 07/02/19 so laxatives will be given. Overall benefitting from intensive therapy regimen. Conferred with RN Reviewed therapy notes Checked meds and labs Review of Systems Pulmonary: Dyspnea, Cough Objective Exam Vital Signs Vital Signs Date Time Temp Pulse Resp B/P (MAP) Pulse Ox O2 Delivery O2 Flow Rate FiO2 07/07/19 15:35 37.4 56 18 104/63 (77) 93 Room Air 07/06/19 12:36 21 Capillary Refill : Less Than 3 SecondsLess Than 3 Seconds General Appearance: No Apparent Distress, WD/WN, Chronically ill HEENT: PERRL/EOMI, Normal ENT Inspection, Pharynx Normal Neck: Full Range of Motion, Normal Inspection, Non Tender, Supple, Carotid Bruit Respiratory: Chest Non Tender, No Accessory Muscle Use, No Respiratory Distress, Crackles, Decreased Breath Sounds, Wheezing Cardiovascular: Regular Rate, Rhythm, No Edema, No Gallop, No JVD, No Murmur, Normal Peripheral Pulses Gastrointestinal: Normal Bowel Sounds, No Organomegaly, No Pulsatile Mass, Non Tender, Soft Back: Normal Inspection, No CVA Tenderness, No Vertebral Tenderness Extremity: Normal Capillary Refill, Normal Inspection, Normal Range of Motion, Non Tender, No Calf Tenderness, No Pedal Edema Neurologic/Psychiatric: Alert, Oriented x3, No Motor/Sensory Deficits (generalized weakness), Normal Mood/Affect, 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 FIM Transfers Therapy Code Descriptions/Definitions Functional [place] Measure: 0=Not Assessed/NA 4=Minimal Assistance 1=Total Assistance 5=Supervision or Setup 2=Maximal Assistance 6=Modified [place] 3=Moderate Assistance 7=Complete IndependenceSCALE: Activities may be completed with or without assistive devices. 9-Fwbjorinzj-cjobrhm completes the activity by him/herself with no assistance from a helper. 5-Set-up or Clean-up Assistance-helper sets up or cleans up; patient completes activity. [place] assists only prior to or following the activity. 4-Supervision or Touching Assistance-helper provides verbal cues and/or touching/steadying and/or contact guard assistance as patient completes activity. Assistance may be provided throughout the activity or intermittently. 3-Partial/Moderate Assistance-helper does LESS THAN HALF the effort. [place] lifts, holds or supports trunk or limbs, but provides less than half the effort. 2-Substantial/Maximal Assistance-helper does MORE THAN HALF the effort. [place] lifts or holds trunk or limbs and provides more than half the effort. 1-Utjqfyrur-aagiyd does ALL the effort. Patient does none of the effort to complete the activity. Or, the assistance of 2 or more helpers is required for the patient to complete the activity. If activity was not attempted, code reason: 7-Patient Refused. 9-Not Applicable-not attempted and the patient did not perform the activity before the current illness, exacerbation or injury. 10-Not Attempted due to Environmental Limitations-(lack of equipment, weather restraints, etc.). 88-Not Attempted due to Medical Conditions or Safety Concerns. Roll Left to Right (QC): 6 Sit to Lying (QC): 5 Sit to Stand (QC): 4 Chair/Fsi-ai-Pfdzt Xfer(QC): 4 Gait Training Does the Patient Walk?: Yes Distance: 15' x5 Walk 10 feet (QC): 4 Walk 50 ft with 2 Turns(QC): 4 Walk 150 ft (QC): 88 Walking 10ft/uneven surface-QC: 88 Gait Persons Needed: 1 Gait Assistive Device: FWW Wheelchair Training Does the Pt Use a Wheelchair?: Yes Distance: 150' Wheel 50 ft with 2 turns (QC): 5 Wheel 150 ft (QC): 5 Type of Wheelchair: Manual Stair Training #of Steps: 88 1 Step (curb) (QC): 88 4 Steps (QC): 88 12 Steps (QC): 88 Balance Picking up an Object (QC): 88 ADL-Treatment Eating (QC): 6 Oral Hygiene (QC): 6 Shower/Bathe Self (QC): 3 Upper Body Dressing (QC): 5 Lower Body Dressing (QC): 3 On/Off Footwear (QC): 2 Toileting Hygiene (QC): 3 Toilet Transfer (QC): 4 Assessment/Plan Assessment and Plan Assess & Plan/Chief Complaint Assessment: PNA with debility DM HTN CAD h/o UTI Chronic back pain Plan: Monitor BP and BS Home meds Pain meds IRF protocol [place] ICS (1) Debility (2) IDDM (insulin dependent diabetes mellitus) Status: Acute (3) CAD (coronary artery disease) Status: Chronic (4) Vertigo Status: Acute (5) HTN (hypertension) Status: Acute (1) Right lower lobe pneumonia Status: Acute (2) Hypoxia Status: Acute (3) Generalized weakness Status: Acute (4) COPD exacerbation Status: Acute (5) Debility (6) HTN (hypertension) Status: Acute (7) CAD (coronary artery disease) Status: Chronic (8) IDDM (insulin dependent diabetes mellitus) Status: Acute CHELY ESPARZA DO Jul 07, 2019 15:05
[2019-07-07 15:35] VITALS: BP 104/63
--- NOTE | 2019-07-07 16:06 | NUR ---
CM/SS WEEKLY TEAM CONFERENCE Patient updated today of conference results, she is in agreement to continue her stay until next planned review, 07/13/19. Document signed, charted.
[2019-07-07] MEDS: ENOXAPARIN 40 MG/0.4 ML (LOVENOX) SYR SQ SCH (17:28)
[2019-07-07] MEDS: HYDROCHLOROTHIAZIDE 25 MG (HCTZ) TAB PO SCH (17:28)
[2019-07-07] MEDS: ROSUVASTATIN 10 MG (CRESTOR) TABLET PO SCH (21:40)
[2019-07-07] MEDS: diphenhydrAMINE 25 MG TAB (BENADRYL) PO SCH (21:40)
[2019-07-07] MEDS: CEFEPIME INJECTION 2,000 MG in WATER (STERILE) FOR INJECTION 20 ML IV SCH (21:42)
[2019-07-07] MEDS: ATENOLOL 25 MG (TENORMIN) TAB PO SCH (21:42)
[2019-07-07] MEDS: PATCH REMOVAL TP SCH (21:42)
[2019-07-07] MEDS: fluCOnazole (DIFLUCAN) 100 MG TAB PO SCH (21:58)
[2019-07-08] MEDS: RT-ALBUTEROL/IPRATROPIUM 3 ML (DUONEB) VIAL INH SCH ×6 (02:18→22:31)
[2019-07-08] MEDS: inSUlin ASPART (NovoLOG) 1 UNIT/0.01 ML (CHARGE PER UNIT) SC SCH ×4 (06:04→20:38)
[2019-07-08 06:07] VITALS: BP 135/54
[2019-07-08] MEDS: NYSTATIN ORAL SUSP 5 ML UDC PO SCH ×4 (06:07→23:10)
[2019-07-08] MEDS: predniSONE 20 MG TAB PO SCH (06:07)
[2019-07-08] MEDS: guaiFENesin/CODEINE (ROBITUSSIN AC) 10ML UDC PO PRN ×2 (06:07→18:04)
--- NOTE | 2019-07-08 08:57 | PM&R Progress Note ---
Subjective HPI/CC On Admission Date Seen by Provider: Jul 08, 2019 Time Seen by Provider: 09:00 Subjective/Events-last exam Pt continues to have wheezing and lymphedema so that will be worked on Pain is denied Overall feels like she is doing better and progressing in inpatient rehab Thrush will be treated with Nystatin swish and swallow and Diflucan Requiring oxygen at night and she is not oxygen dependent at home Conferred with RN Reviewed therapy notes Checked meds and labs Review of Systems General: Fatigue, Malaise Pulmonary: Dyspnea, Cough Cardiovascular: Edema Objective Exam Vital Signs Vital Signs Date Time Temp Pulse Resp B/P (MAP) Pulse Ox O2 Delivery O2 Flow Rate FiO2 07/09/19 10:55 92 Nasal Cannula 2.00 07/09/19 05:00 36.6 52 18 123/73 (90) 07/06/19 12:36 21 Capillary Refill : Less Than 3 SecondsLess Than 3 Seconds General Appearance: No Apparent Distress, WD/WN, Chronically ill HEENT: PERRL/EOMI, Normal ENT Inspection, Pharynx Normal Neck: Full Range of Motion, Normal Inspection, Non Tender, Supple, Carotid Bruit Respiratory: Chest Non Tender, No Accessory Muscle Use, No Respiratory Distress, Crackles, Decreased Breath Sounds, Wheezing Cardiovascular: Regular Rate, Rhythm, No Edema, No Gallop, No JVD, No Murmur, Normal Peripheral Pulses Gastrointestinal: Normal Bowel Sounds, No Organomegaly, No Pulsatile Mass, Non Tender, Soft Back: Normal Inspection, No CVA Tenderness, No Vertebral Tenderness Extremity: Normal Capillary Refill, Normal Inspection, Normal Range of Motion, Non Tender, No Calf Tenderness, No Pedal Edema Neurologic/Psychiatric: Alert, Oriented x3, No Motor/Sensory Deficits (generalized weakness), Normal Mood/Affect, agency appointments supervisor II-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 FIM Transfers Therapy Code Descriptions/Definitions Functional [place] Measure: 0=Not Assessed/NA 4=Minimal Assistance 1=Total Assistance 5=Supervision or Setup 2=Maximal Assistance 6=Modified [place] 3=Moderate Assistance 7=Complete IndependenceSCALE: Activities may be completed with or without assistive devices. 7-Dwllrfikhs-vybutfo completes the activity by him/herself with no assistance from a helper. 5-Set-up or Clean-up Assistance-helper sets up or cleans up; patient completes activity. [place] assists only prior to or following the activity. 4-Supervision or Touching Assistance-helper provides verbal cues and/or touching/steadying and/or contact guard assistance as patient completes activity. Assistance may be provided throughout the activity or intermittently. 3-Partial/Moderate Assistance-helper does LESS THAN HALF the effort. [place] lifts, holds or supports trunk or limbs, but provides less than half the effort. 2-Substantial/Maximal Assistance-helper does MORE THAN HALF the effort. [place] lifts or holds trunk or limbs and provides more than half the effort. 3-Gjnvirmpu-ihqvbn does ALL the effort. Patient does none of the effort to complete the activity. Or, the assistance of 2 or more helpers is required for the patient to complete the activity. If activity was not attempted, code reason: 7-Patient Refused. 9-Not Applicable-not attempted and the patient did not perform the activity before the current illness, exacerbation or injury. 10-Not Attempted due to Environmental Limitations-(lack of equipment, weather restraints, etc.). 88-Not Attempted due to Medical Conditions or Safety Concerns. Roll Left to Right (QC): 6 Sit to Lying (QC): 5 Sit to Stand (QC): 4 Chair/Vvh-rh-Oqkis Xfer(QC): 4 Gait Training Does the Patient Walk?: Yes Distance: 15' x5 Walk 10 feet (QC): 4 Walk 50 ft with 2 Turns(QC): 4 Walk 150 ft (QC): 88 Walking 10ft/uneven surface-QC: 88 Gait Persons Needed: 1 Gait Assistive Device: FWW Wheelchair Training Does the Pt Use a Wheelchair?: Yes Distance: 150' Wheel 50 ft with 2 turns (QC): 5 Wheel 150 ft (QC): 5 Type of Wheelchair: Manual Stair Training #of Steps: 88 1 Step (curb) (QC): 88 4 Steps (QC): 88 12 Steps (QC): 88 Balance Picking up an Object (QC): 88 ADL-Treatment Eating (QC): 6 Oral Hygiene (QC): 6 Shower/Bathe Self (QC): 3 Upper Body Dressing (QC): 5 Lower Body Dressing (QC): 3 On/Off Footwear (QC): 2 Toileting Hygiene (QC): 3 Toilet Transfer (QC): 4 Assessment/Plan Assessment and Plan Assess & Plan/Chief Complaint Assessment: PNA with debility DM HTN CAD h/o UTI Chronic back pain Left arm edema Plan: Monitor BP and BS Home meds Pain meds IRF protocol Nebs ICS Left upper extremity ultrasound (1) Debility (2) IDDM (insulin dependent diabetes mellitus) Status: Acute (3) CAD (coronary artery disease) Status: Chronic (4) Vertigo Status: Acute (5) HTN (hypertension) Status: Acute (1) Right lower lobe pneumonia Status: Acute (2) Hypoxia Status: Acute (3) Generalized weakness Status: Acute (4) COPD exacerbation Status: Acute (5) Debility (6) HTN (hypertension) Status: Acute (7) CAD (coronary artery disease) Status: Chronic (8) IDDM (insulin dependent diabetes mellitus) Status: Acute CHELY ESPARZA DO Jul 08, 2019 08:57
--- NOTE | 2019-07-08 09:29 | Occupational Ther Daily Note ---
OT Current Status-Daily Note Subjective Pt alert, lying in bed. Pt states that she is still feeling weak. No c/o pain though is c/o soreness in LE's. Pt coughing and states that she has been able to get more stuff up out of lungs. Pt agrees to therapy. Mental Status/Objective Patient Orientation: Person, Place, Time, Situation Attachments: IV ADL-Treatment Pt completed own set up of meal and used regular utensils to eat. Supine to EOB, mod I. CGA due to increased fatigue/weakness for functional transfers. Pt declined shower, wanting a sponge bath. CGA to manipulate clothing and assistance to cleanse self after voiding, pt stated that she was weak. Pt then sat at sink to complete oral care, grooming and sponge bath. Pt donned/doffed socks by self. Pt doffed briefs with CGA in standing to hike over hips then threaded over feet. Donned briefs with min A to hike over hips, threaded over feet by self. Pt fatigues easily with exertion so is not standing for long periods of time. Pt donned/doffed gown by self after set up. Pt worked on UE strengthening while propelling w/c out of bathroom and into room. CGA for sit to stand and to ambulate to recliner. After session, pt sitting in recliner with call light/phone in reach. All needs met in room. Therapy Code Descriptions/Definitions Functional [place] Measure: 0=Not Assessed/NA 4=Minimal Assistance 1=Total Assistance 5=Supervision or Setup 2=Maximal Assistance 6=Modified [place] 3=Moderate Assistance 7=Complete IndependenceSCALE: Activities may be completed with or without assistive devices. 8-Jnhfvtkmar-isrusum completes the activity by him/herself with no assistance from a helper. 5-Set-up or Clean-up Assistance-helper sets up or cleans up; patient completes activity. [place] assists only prior to or following the activity. 4-Supervision or Touching Assistance-helper provides verbal cues and/or touching/steadying and/or contact guard assistance as patient completes activity. Assistance may be provided throughout the activity or intermittently. 3-Partial/Moderate Assistance-helper does LESS THAN HALF the effort. [place] lifts, holds or supports trunk or limbs, but provides less than half the effort. 2-Substantial/Maximal Assistance-helper does MORE THAN HALF the effort. [place] lifts or holds trunk or limbs and provides more than half the effort. 7-Twjtjvoep-fbchln does ALL the effort. Patient does none of the effort to complete the activity. Or, the assistance of 2 or more helpers is required for the patient to complete the activity. If activity was not attempted, code reason: 7-Patient Refused. 9-Not Applicable-not attempted and the patient did not perform the activity before the current illness, exacerbation or injury. 10-Not Attempted due to Environmental Limitations-(lack of equipment, weather restraints, etc.). 88-Not Attempted due to Medical Conditions or Safety Concerns. Eating (QC): 6 Oral Hygiene (QC): 6 Shower/Bathe Self (QC): 6 (Sitting in w/c in front of sink for sponge bath.) Upper Body Dressing (QC): 5 Lower Body Dressing (QC): 3 On/Off Footwear: 5 Toileting Hygiene (QC): 3 Toilet Transfer (QC): 4 OT Short Term Goals Short Term Goals Time Frame: Jul 12, 2019 Upper body dressin Lower body dressin Putting on/taking off footwear: 3 OT Mcfp Goals Grinder Goals Time Frame: Jul 19, 2019 Eating (QC): 5 Oral Hygiene (QC): 6 Toileting Hygiene (QC): 6 Shower/Bathe Self (QC): 3 Upper Body Dressing (QC): 6 Lower Body Dressing (QC): 3 On/Off Footwear (QC): 6 Additional Goals: 1-Demonstrate ADL Tasks, 2-Verbalize Understanding, 3- ImproveStrength/[place] 1=Demonstrate adherence to instructed precautions during ADL tasks. 2=Patient will verbalize/demonstrate understanding of assistive devices/mo difications for ADL. 3=Patient will improve strength/tolerance for activity to enable patient to perform ADL's. OT Education/Plan Problem List/Assessment Assessment: Decreased Activ Tolerance, Decreased UE Strength, Impaired Funct Balance, Impaired Self-Care Skills Discharge Recommendations Plan/Recommendations: Continue POC Treatment Plan/Plan of Care Patient would benefit from OT for education, treatment and training to promote independence in ADL's, mobility, safety and/or upper extremity function for ADL's. Plan of Care: ADL Retraining, Caregiver Training Treatment Duration: Jul 19, 2019 Frequency: 2 times per month Estimated Hrs Per Day: 1.5 hours per day Agreement: Yes Rehab Potential: Fair Time/GCodes Start Time: 08:00 Stop Time: 09:30 Total Time Billed (hr/min): 90 Billed Treatment Time 1 visit-ADL 6 (90 min) MALIHA CATES Jul 08, 2019 09:29
[2019-07-08] MEDS ORDERED: FUROSEMIDE 40 MG/4 ML INJ (LASIX) IVP NR (10:00)
--- NOTE | 2019-07-08 10:02 | Progress Note ---
Subjective Date Seen by a Provider: Jul 08, 2019 Time Seen by a Provider: 09:10 Subjective/Events-last exam PT REPORTS THAT SHE IS STILL HAVING A COUGH, HER FEET AND HANDS ARE STILL A LITTLE SWOLLEN, SHE HAS DRY MOUTH AND A SORE THROAT Review of Systems General: Fatigue Pulmonary: Dyspnea, Cough Cardiovascular: Edema; No: Chest Pain, Palpitations Gastrointestinal: No: Nausea, Vomiting, Abdominal Pain, Diarrhea, Constipation, Melena, Hematochezia, Other Genitourinary: Frequency Neurological: Weakness Objective Exam Last Set of Vital Signs Vital Signs Date Time Temp Pulse Resp B/P (MAP) Pulse Ox O2 Delivery O2 Flow Rate FiO2 07/08/19 06:07 36.4 64 18 135/54 (81) 95 Room Air 07/06/19 12:36 21 Capillary Refill : Less Than 3 SecondsLess Than 3 Seconds I&O Intake and Output 07/08/19 00:00 Intake Total 1270 ml Balance 1270 ml Intake Oral 1250 ml IV Total 20 ml # Voids 7 General: Alert, Oriented X3, Cooperative, No Acute Distress HEENT: Atraumatic, PERRLA Neck: Supple Lungs: Other (DECREASED IN BASES, PERSISTENT CRACKLES) Heart: Regular Rate Abdomen: Normal Bowel Sounds, Soft, No Tenderness, No Masses Extremities: Other (EDEMA OF HANDS AND FEET) Skin: No Rashes, No Breakdown Neuro: Strength at 5/5 X4 Ext Psych/Mental Status: Mental Status NL, Mood NL Results Lab Laboratory Tests 07/07/19 14:42: Glucometer 225H 07/07/19 20:35: Glucometer 152H 07/08/19 05:59: Glucometer 86 07/08/19 09:19: Glucometer 115H Assessment/Plan Assessment/Plan Assess & Plan/Chief Complaint PNEUMONIA GENERALIZED WEAKNESS HYPERTENSION DIABETES MELLITUS OSTEOARTHRITIS CHRONIC BACK PAIN HYPERLIPIDEMIA PNEUMONIA PNEUMONIA PROTOCOL INITIATED, SERIAL CHEST XRAYS PLANNED, BREATHING TREATMENTS/MAT PROTOCOL HYPERTENSION HOME MEDICATION REGIMEN RESTARTED, CONTINUE TO MONITOR BLOOD PRESSURE CLOSELY DIABETES MELLITUS RESTART INSULIN THERAPY, MONITOR BLOOD GLUCOSE READINGS CLOSELY, DIABETIC DIET INITIATED OSTEOARTHRITIS WITH WEAKNESS AND BACK PAIN ADMITTED TO INPATIENT REHAB FOR PHYSICAL THERAPY, OCCUPATIONAL THERAPY AND WE WILL CONTINUE WITH PRN PAIN MEDICATIONS HYPERLIPIDEMIA RESTARTED STATIN THERAPY Clinical Quality Measures DVT/VTE Risk/Contraindication: Risk Factor Score Per Nursin RFS Level Per Nursing on Admit: 3=High KARY MEHTA MD Jul 08, 2019 10:02
[2019-07-08] MEDS: LOSARTAN 25 MG (COZAAR) TAB PO SCH (10:03)
[2019-07-08] MEDS: ASPIRIN E.C. 81 MG (ECOTRIN) TAB PO SCH (10:03)
[2019-07-08] MEDS: SPIRONOLACTONE 25 MG (ALDACTONE) TAB PO SCH (10:03)
[2019-07-08] MEDS: VITAMIN D3 1,000 UNITS (CHOLECALCIFEROL) TABLET PO SCH (10:03)
[2019-07-08] MEDS: amLODIPine 5 MG (NORVASC) TAB PO SCH (10:03)
[2019-07-08] MEDS: SENNA W/DOCUSATE (SENOKOT S) TABLET PO SCH ×2 (10:04→20:41)
[2019-07-08] MEDS: POLYETHYLENE GLYCOL 17 GM (MIRALAX) PACK PO SCH ×2 (10:04→20:40)
[2019-07-08] MEDS: DOCUSATE SODIUM 100 MG (COLACE) CAP PO SCH ×2 (10:04→20:41)
[2019-07-08] MEDS: PANTOPRAZOLE 40 MG (PROTONIX) TAB PO SCH (10:04)
[2019-07-08] MEDS: fluCOnazole (DIFLUCAN) 100 MG TAB PO SCH (10:04)
[2019-07-08] MEDS: RANOLAZINE ER 500 MG TAB (RANEXA) PO SCH ×2 (10:04→20:40)
[2019-07-08] MEDS: LIDOCAINE 4% (SALONPAS) PATCH TOP SCH (10:04)
--- NOTE | 2019-07-08 10:48 | Physical Therapy Daily Note ---
PT Daily Note-Current Subjective Pt. agrees to Rx but states she is having a little more trouble breathing today. Dr Clay, nurse and RT in room initially. O2 sats reveal 86% room air, Pt. agreeable to Rx after education, breathing Rx, [place] and Dr franklin. Pain Location: No Pain Reported Appearance pt. c/o sudden weakness in LEs with gait and asks to sit every 25 ft or so Mental Status Patient Orientation: Normal For Age Attachments: Oxygen (2L) Transfers SCALE: Activities may be completed with or without assistive devices. 0-Nzevssaqkt-wcgpwov completes the activity by him/herself with no assistance from a helper. 5-Set-up or Clean-up Assistance-helper sets up or cleans up; patient completes activity. [place] assists only prior to or following the activity. 4-Supervision or Touching Assistance-helper provides verbal cues and/or touching/steadying and/or contact guard assistance as patient completes activity. Assistance may be provided throughout the activity or intermittently. 3-Partial/Moderate Assistance-helper does LESS THAN HALF the effort. [place] lifts, holds or supports trunk or limbs, but provides less than half the effort. 2-Substantial/Maximal Assistance-helper does MORE THAN HALF the effort. [place] lifts or holds trunk or limbs and provides more than half the effort. 9-Fuiogjvrs-ntsedh does ALL the effort. Patient does none of the effort to complete the activity. Or, the assistance of 2 or more helpers is required for the patient to complete the activity. If activity was not attempted, code reason: 7-Patient Refused. 9-Not Applicable-not attempted and the patient did not perform the activity before the current illness, exacerbation or injury. 10-Not Attempted due to Environmental Limitations-(lack of equipment, weather restraints, etc.). 88-Not Attempted due to Medical Conditions or Safety Concerns. Sit to Stand (QC): 5 Chair/Oay-ma-Copam Xfer(QC): 5 Weight Bearing Full Weight Bearing Full Weight Bearing Gait Training Does the Patient Walk?: Yes Walk 10 feet (QC): 4 Gait Persons Needed: 1 Gait Assistive Device: FWW gait 25 ft x 4 with w/c close behind as well as assist for O2, pt. c/o shakiness and weakness in LEs and asks to sit often Wheelchair Training Does the Pt Use a Wheelchair?: Yes Wheel 50 ft with 2 turns (QC): 5 Type of Wheelchair: Manual Exercises Seated Therapy Exercises: Ankle pumps, Sit to stand, Long arc quads, Hip flexion, Hip abd/add Seated Reps: 15 NuStep Minutes: 10 NuStep Workload: 7 Treatments O2 sats monitored seated on room air initially at 86%, pt. had breathing Rx and acapella, O2 initiated at 2L per Dr order with sats steady at 95% after that for Rx Assessment Current Status: Good Progress pt. only walks short dist and needs to sit but states this is status quo for her at home PT Short Term Goals Short Term Goals Time Frame: Jul 12, 2019 Roll Left & Right: 6 Sit to lyin Lying to sitting on side of be: 6 Sit to stand: 4 Chair/uyw-xj-scran transfer: 4 Toilet transfer: 4 Walk 10 feet: 4 Walk 50 feet with two turns: 4 PT Boarder Hand Goals Group Home Goals PT Group Home Goals Time Frame: Jul 26, 2019 Roll Left & Right (QC): 6 Sit to Lying (QC): 6 Lying-Sitting on Side/Bed(QC): 6 Sit to Stand (QC): 6 Chair/Qdo-gr-Iacia Xfer(QC): 6 Toilet Transfer (QC): 6 Car Transfer (QC): 6 Walk 10 feet (QC): 6 Walk 50ft with 2 Turns (QC): 6 Walk 150 ft (QC): 6 Walking 10ft on Uneven Surface: 6 1 Step (curb) (QC): 4 4 Steps (QC): 4 PT Plan Treatment/Plan Treatment Plan: Continue Plan of Care Treatment Plan: Bed Mobility, Concurrent Therapy, Education, Functional Activity [place], Functional Strength, Group Therapy, Gait, Safety, Therapeutic Ex ercise, Transfers Treatment Duration: Jul 26, 2019 Frequency: At least 5 of 7 days/Wk (IRF) Estimated Hrs Per Day: 1.5 hours per day Patient and/or Family Agrees t: Yes Safety Risks/Education Patient Education: Gait Training, Transfer Techniques, Correct Positioning, W/C Management, Disease Process, Safety Issues Teaching Recipient: Patient Teaching Methods: Demonstration, Discussion Response to Teaching: Verbalize Understanding, Return Demonstration, Reinforcement Needed Time/GCodes Time In: 930 Time Out: 1045 Total Billed Treatment Time: 75 Total Billed Treatment 1,FA25m,GT20m,EX15m,WC15m KEVAN SOUZA [employer]HALT MACHINE OPERATOR Jul 08, 2019 10:48
[2019-07-08 10:55] LABS: HEMOGLOBIN 14.4 G/DL (11.5-16.0); MEAN PLATELET VOLUME 9.5 FL (7.4-10.4); RED CELL DISTRIBUTION WIDTH 12.4 % (10.0-14.5); WHITE BLOOD COUNT 11.3 10^3/uL (4.3-11.0)
[2019-07-08 11:14] LABS: ALANINE AMINOTRANSFERASE 27 U/L (0-55); ALBUMIN 3.4 GM/DL (3.2-4.5); ALKALINE PHOSPHATASE 50 U/L (40-136); BILIRUBIN,TOTAL 0.9 MG/DL (0.1-1.0); BUN/CREATININE RATIO 25; CALCIUM 8.7 MG/DL (8.5-10.1); CARBON DIOXIDE 21 MMOL/L (21-32); CHLORIDE 101 MMOL/L (98-107); CREATININE SERUM 0.84 MG/DL (0.60-1.30); GFR ESTIMATED > 60; GLUCOSE 101 MG/DL (70-105); POTASSIUM 4.8 MMOL/L (3.6-5.0); SODIUM 135 MMOL/L (135-145); TOTAL PROTEIN 5.6 GM/DL (6.4-8.2)
[2019-07-08] MEDS: LEVOFLOXACIN 500 MG TAB (LEVAQUIN) PO SCH (11:44)
--- NOTE | 2019-07-08 12:12 | Diagnostic Imaging Report ---
EXAMINATION: PA and lateral chest at 11:19 a.m. INDICATION: Pneumonia. FINDINGS: The heart size is within normal limits and stable when compared to 07/05/2019. Both lung bases do seem somewhat better aerated than on the prior exam but I suspect that there is still a very small amount of residual atelectasis/infiltrate and fluid in each lower lobe. The upper lungs are clear. The mediastinum is not widened. The osseous structures are intact. IMPRESSION: The appearance of the chest has improved as the lung bases do seem better aerated. However, there still appears to be a small amount of residual pneumonia/atelectasis and fluid bilaterally. Very Dictated by: Dictated on workstation # [id number]
--- NOTE | 2019-07-08 13:26 | Speech Therapy Daily Note ---
Speech Daily Progress Note Subjective Date Seen by Provider: Jul 08, 2019 Time Seen by Provider: 11:00 Patient was alert, pleasant, and cooperative for all therapy tasks. Patient was sitting upright in her chair while she was receiving a breathing treatment throughout todays session. Patient reported that her throat was feeling better but suffering from a dry cough for most of the morning and ate a little breakfast. Objective Patient completed compensatory strategies pertaining to alternating liquids and solids with 90% accuracy with minimal cues. Assessment Assessment Current Status: Good Progress Treatment Plan Continue Plan of Care Speech Short Term Goals Short Term Goals Short Term Goals 1. Patient will tolerate least restrictive diet with s/s of aspiration at 90%. 2. Patient will utilize compensatory strategies as trained at 90% with minimal cues. Speech Assisted Goals Bar Useful Or Busser Goals Patient will maintain adequate nutrition/hydration via safe and effective swallow function. Speech-Plan Patient/Family Goals Patient/Family Goals: Patient reports that she would like to return home to previous level of independence. Treatment Plan Speech Therapy Treatment Plan: Continue Plan of Care Treatment Duration: Jul 15, 2019 Frequency: 4 times per week Estimated Hrs Per Day: .5 hour per day Rehab Potential: Fair Barriers to Learning: Current medical status Pt/Family Agrees to Plan: Yes Safety Risks/Education Teaching Recipient: Patient Teaching Methods: Demonstration, Discussion Response to Teaching: Verbalize Understanding Education Topics Provided: Patient verbalized understanding of utlization of compensatory strategies for safe and effective swallow. Time Speech Therapy Time In: 11:00 Speech Therapy Time Out: 11:15 Total Billed Time: 15 Billed Treatment Time 1ROSSANA CECE Hudson Jul 08, 2019 13:26
[2019-07-08 16:04] VITALS: BP 113/71
--- NOTE | 2019-07-08 17:34 | Diagnostic Imaging Report ---
PROCEDURE: US venous upper extremity left. TECHNIQUE: Multiple realtime grayscale images were obtained of left upper extremity in various projections. Additional spectral analysis and color Doppler duplex images were also obtained. INDICATION: Left arm swelling. FINDINGS: No left upper extremity deep or superficial venous thrombosis is identified. Acoustical windows were limited during interrogation of the subclavian vein but pulsatility along its adequately visualized segments was normal. No thrombus visualized. IMPRESSION: Negative left upper extremity venous Doppler and ultrasound exam. Dictated by: Dictated on workstation # [id number]
[2019-07-08] MEDS: HYDROCHLOROTHIAZIDE 25 MG (HCTZ) TAB PO SCH (18:04)
[2019-07-08] MEDS: ENOXAPARIN 40 MG/0.4 ML (LOVENOX) SYR SQ SCH (18:05)
[2019-07-08] MEDS: ROSUVASTATIN 10 MG (CRESTOR) TABLET PO SCH (20:40)
[2019-07-08] MEDS: ATENOLOL 25 MG (TENORMIN) TAB PO SCH (20:40)
[2019-07-08] MEDS: diphenhydrAMINE 25 MG TAB (BENADRYL) PO SCH (20:40)
[2019-07-08] MEDS: PATCH REMOVAL TP SCH (20:42)
[2019-07-08] MEDS: HYDROcodone/APAP 7.5 MG/325 MG (LORTAB, LORCET PLUS) TABLET PO PRN (21:22)
[2019-07-09] MEDS: RT-ALBUTEROL/IPRATROPIUM 3 ML (DUONEB) VIAL INH SCH ×5 (02:05→20:39)
[2019-07-09 05:00] VITALS: BP 123/73
[2019-07-09] MEDS: inSUlin ASPART (NovoLOG) 1 UNIT/0.01 ML (CHARGE PER UNIT) SC SCH ×4 (06:10→20:06)
[2019-07-09] MEDS: predniSONE 20 MG TAB PO SCH (06:42)
[2019-07-09] MEDS: NYSTATIN ORAL SUSP 5 ML UDC PO SCH ×4 (06:42→23:20)
[2019-07-09] MEDS: guaiFENesin/CODEINE (ROBITUSSIN AC) 10ML UDC PO PRN ×4 (06:53→22:09)
[2019-07-09] MEDS: VITAMIN D3 1,000 UNITS (CHOLECALCIFEROL) TABLET PO SCH (08:54)
[2019-07-09] MEDS: POLYETHYLENE GLYCOL 17 GM (MIRALAX) PACK PO SCH ×2 (08:54→20:56)
[2019-07-09] MEDS: ASPIRIN E.C. 81 MG (ECOTRIN) TAB PO SCH (08:54)
[2019-07-09] MEDS: LIDOCAINE 4% (SALONPAS) PATCH TOP SCH (08:55)
[2019-07-09] MEDS: DOCUSATE SODIUM 100 MG (COLACE) CAP PO SCH ×2 (08:55→20:56)
[2019-07-09] MEDS: FUROSEMIDE 40 MG/4 ML INJ (LASIX) IVP SCH (08:55)
[2019-07-09] MEDS: fluCOnazole (DIFLUCAN) 100 MG TAB PO SCH (08:55)
[2019-07-09] MEDS: PANTOPRAZOLE 40 MG (PROTONIX) TAB PO SCH (08:55)
[2019-07-09] MEDS: SENNA W/DOCUSATE (SENOKOT S) TABLET PO SCH ×2 (08:55→20:56)
[2019-07-09] MEDS: HYDROcodone/APAP 7.5 MG/325 MG (LORTAB, LORCET PLUS) TABLET PO PRN ×2 (09:01→22:09)
[2019-07-09] MEDS: amLODIPine 5 MG (NORVASC) TAB PO SCH (09:06)
[2019-07-09] MEDS: LOSARTAN 25 MG (COZAAR) TAB PO SCH (09:07)
[2019-07-09] MEDS: RANOLAZINE ER 500 MG TAB (RANEXA) PO SCH ×2 (09:08→20:55)
[2019-07-09] MEDS: SPIRONOLACTONE 25 MG (ALDACTONE) TAB PO SCH (09:17)
--- NOTE | 2019-07-09 11:12 | Physical Therapy Daily Note ---
PT Daily Note-Current Subjective Pt agreeable to PT session. Pain Numeric Pain Scale: 9 Location Body Site: Back Appearance Pt long sitting in bed awake and alert upon arrival. At end of session, pt long sitting up in bed per pt preference, call light, phone and bedside table within reach. Mental Status Patient Orientation: Person, Place, Time, Eyes Open, Situation Attachments: Oxygen (2L O2/NC) Transfers SCALE: Activities may be completed with or without assistive devices. 5-Ygpznpnhvq-dulplwr completes the activity by him/herself with no assistance from a helper. 5-Set-up or Clean-up Assistance-helper sets up or cleans up; patient completes activity. [place] assists only prior to or following the activity. 4-Supervision or Touching Assistance-helper provides verbal cues and/or touching/steadying and/or contact guard assistance as patient completes activity. Assistance may be provided throughout the activity or intermittently. 3-Partial/Moderate Assistance-helper does LESS THAN HALF the effort. [place] lifts, holds or supports trunk or limbs, but provides less than half the effort. 2-Substantial/Maximal Assistance-helper does MORE THAN HALF the effort. [place] lifts or holds trunk or limbs and provides more than half the effort. 9-Ihfbropwp-mxxhqf does ALL the effort. Patient does none of the effort to complete the activity. Or, the assistance of 2 or more helpers is required for the patient to complete the activity. If activity was not attempted, code reason: 7-Patient Refused. 9-Not Applicable-not attempted and the patient did not perform the activity before the current illness, exacerbation or injury. 10-Not Attempted due to Environmental Limitations-(lack of equipment, weather restraints, etc.). 88-Not Attempted due to Medical Conditions or Safety Concerns. Sit to Lying (QC): 5 Lying to Sitting/Side of Bed(Q: 5 Sit to Stand (QC): 4 Chair/Wrk-qb-Xzzla Xfer(QC): 4 CGA during sit to and from stand transfers and stand pivot transfers. Increased effort and attempts required with increasing fatigue. Pt able to transition LE's in and out of bed without assist Weight Bearing Full Weight Bearing Full Weight Bearing Gait Training Does the Patient Walk?: Yes Distance: 7 ft x2 Gait Assistive Device: FWW extremely slow pace, pt with c/o that legs are "going out", attempted encouraging pt to take 2 more steps each time but would not, following with w/c directly behind pt due to pt c/o fear and legs giving out. Attempted gait 2 more times but after standing, pt unable to move feet. After sitting rest break was able to stand and pivot w/c to EOB with CGA Exercises Supine Ex: Ankle pumps, Quad Set, Heel Slides Supine Reps: 15 Seated Therapy Exercises: Ankle pumps, Sit to stand, Long arc quads, Hip flexion, Hamstring Curls, Hip abd/add Seated Reps: 15 Treatments education, safety, bed mobility, transfers, toileting, jose alejandro care, gait, strength, balance, functional mobility, activity tolerance Assessment minimal gait distances, increased pain, increased fear, increased fatigue, rest breaks required PT Short Term Goals Short Term Goals Time Frame: Jul 12, 2019 Roll Left & Right: 6 Sit to lyin Lying to sitting on side of be: 6 Sit to stand: 4 Chair/zxk-lq-lianv transfer: 4 Toilet transfer: 4 Walk 10 feet: 4 Walk 50 feet with two turns: 4 PT Pulpit Operator Goals Senior Care Goals PT Pulpit Operator Goals Time Frame: Jul 26, 2019 Roll Left & Right (QC): 6 Sit to Lying (QC): 6 Lying-Sitting on Side/Bed(QC): 6 Sit to Stand (QC): 6 Chair/Pvl-cv-Rgtqi Xfer(QC): 6 Toilet Transfer (QC): 6 Car Transfer (QC): 6 Walk 10 feet (QC): 6 Walk 50ft with 2 Turns (QC): 6 Walk 150 ft (QC): 6 Walking 10ft on Uneven Surface: 6 1 Step (curb) (QC): 4 4 Steps (QC): 4 PT Plan Treatment/Plan Treatment Plan: Continue Plan of Care Treatment Plan: Bed Mobility, Concurrent Therapy, Education, Functional Activity [place], Functional Strength, Group Therapy, Gait, Safety, Therapeutic Exercise, Transfers Treatment Duration: Jul 26, 2019 Frequency: At least 5 of 7 days/Wk (IRF) Estimated Hrs Per Day: 1.5 hours per day Patient and/or Family Agrees t: Yes Safety Risks/Education Patient Education: Gait Training, Transfer Techniques, Correct Positioning, Safety Issues Teaching Recipient: Patient Teaching Methods: Demonstration, Discussion Response to Teaching: Verbalize Understanding, Return Demonstration, Reinforcement Needed Time/GCodes Time In: 811 Time Out: 901 Total Billed Treatment Time: 50 Total Billed Treatment 1 visit, FA x1 unit, GT x1 unit, EX x1 unit SHIMON BEAVERS PTA Jul 09, 2019 11:12
[2019-07-09] MEDS: LEVOFLOXACIN 500 MG TAB (LEVAQUIN) PO SCH (11:29)
--- NOTE | 2019-07-09 12:05 | PM&R Progress Note ---
Subjective HPI/CC On Admission Date Seen by Provider: Jul 09, 2019 Time Seen by Provider: 11:45 Subjective/Events-last exam Bowels are moving now Patient reports cough is much improved and she is breathing better No pain is reported except for low back Blood sugars are much improved Lasix given Urinary output is good Overall benefitting from intensive therapy regimen. Conferred with RN Reviewed therapy notes Checked meds and labs Review of Systems General: Fatigue Pulmonary: Cough Neurological: Weakness Objective Exam Vital Signs Vital Signs Date Time Temp Pulse Resp B/P (MAP) Pulse Ox O2 Delivery O2 Flow Rate FiO2 07/09/19 10:55 92 Nasal Cannula 2.00 07/09/19 05:00 36.6 52 18 123/73 (90) 07/06/19 12:36 21 Capillary Refill : Less Than 3 SecondsLess Than 3 Seconds General Appearance: No Apparent Distress, WD/WN, Chronically ill HEENT: PERRL/EOMI, Normal ENT Inspection, Pharynx Normal Neck: Full Range of Motion, Normal Inspection, Non Tender, Supple, Carotid Bruit Respiratory: Chest Non Tender, No Accessory Muscle Use, No Respiratory Distress, Crackles, Decreased Breath Sounds, Wheezing Cardiovascular: Regular Rate, Rhythm, No Edema, No Gallop, No JVD, No Murmur, Normal Peripheral Pulses Gastrointestinal: Normal Bowel Sounds, No Organomegaly, No Pulsatile Mass, Non Tender, Soft Back: Normal Inspection, No CVA Tenderness, No Vertebral Tenderness Extremity: Normal Capillary Refill, Normal Inspection, Normal Range of Motion, Non Tender, No Calf Tenderness, No Pedal Edema Neurologic/Psychiatric: Alert, Oriented x3, No Motor/Sensory Deficits (generalized weakness), Normal Mood/Affect, license 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 FIM Transfers Therapy Code Descriptions/Definitions Functional [place] Measure: 0=Not Assessed/NA 4=Minimal Assistance 1=Total Assistance 5=Supervision or Setup 2=Maximal Assistance 6=Modified [place] 3=Moderate Assistance 7=Complete IndependenceSCALE: Activities may be completed with or without assistive devices. 5-Ylsboohvpq-dmbvohs completes the activity by him/herself with no assistance from a helper. 5-Set-up or Clean-up Assistance-helper sets up or cleans up; patient completes activity. [place] assists only prior to or following the activity. 4-Supervision or Touching Assistance-helper provides verbal cues and/or touching/steadying and/or contact guard assistance as patient completes activity. Assistance may be provided throughout the activity or intermittently. 3-Partial/Moderate Assistance-helper does LESS THAN HALF the effort. [place] lifts, holds or supports trunk or limbs, but provides less than half the effort. 2-Substantial/Maximal Assistance-helper does MORE THAN HALF the effort. [place] lifts or holds trunk or limbs and provides more than half the effort. 1-Ygclqmepo-bazxwt does ALL the effort. Patient does none of the effort to complete the activity. Or, the assistance of 2 or more helpers is required for the patient to complete the activity. If activity was not attempted, code reason: 7-Patient Refused. 9-Not Applicable-not attempted and the patient did not perform the activity before the current illness, exacerbation or injury. 10-Not Attempted due to Environmental Limitations-(lack of equipment, weather restraints, etc.). 88-Not Attempted due to Medical Conditions or Safety Concerns. Roll Left to Right (QC): 6 Sit to Lying (QC): 5 Sit to Stand (QC): 4 Chair/Unw-yw-Uvply Xfer(QC): 4 Gait Training Does the Patient Walk?: Yes Distance: 7 ft x2 Walk 10 feet (QC): 4 Walk 50 ft with 2 Turns(QC): 4 Walk 150 ft (QC): 88 Walking 10ft/uneven surface-QC: 88 Gait Persons Needed: 1 Gait Assistive Device: FWW Wheelchair Training Does the Pt Use a Wheelchair?: Yes Distance: 150' Wheel 50 ft with 2 turns (QC): 5 Wheel 150 ft (QC): 5 Type of Wheelchair: Manual Stair Training #of Steps: 88 1 Step (curb) (QC): 88 4 Steps (QC): 88 12 Steps (QC): 88 Balance Picking up an Object (QC): 88 ADL-Treatment Eating (QC): 6 Oral Hygiene (QC): 6 Shower/Bathe Self (QC): 6 (Sitting in w/c in front of sink for sponge bath.) Upper Body Dressing (QC): 5 Lower Body Dressing (QC): 3 On/Off Footwear (QC): 5 Toileting Hygiene (QC): 3 Toilet Transfer (QC): 4 Assessment/Plan Assessment and Plan Assess & Plan/Chief Complaint Assessment: PNA with debility DM HTN CAD h/o UTI Chronic back pain Plan: Monitor BP and BS Home meds Pain meds IRF protocol Nebs ICS Much improved air movement today (1) Debility (2) IDDM (insulin dependent diabetes mellitus) Status: Acute (3) CAD (coronary artery disease) Status: Chronic (4) Vertigo Status: Acute (5) HTN (hypertension) Status: Acute (1) Right lower lobe pneumonia Status: Acute (2) Hypoxia Status: Acute (3) Generalized weakness Status: Acute (4) COPD exacerbation Status: Acute (5) Debility (6) HTN (hypertension) Status: Acute (7) CAD (coronary artery disease) Status: Chronic (8) IDDM (insulin dependent diabetes mellitus) Status: Acute CHELY ESPARZA DO Jul 09, 2019 12:05
[2019-07-09] MEDS: HYDROCHLOROTHIAZIDE 25 MG (HCTZ) TAB PO SCH (17:19)
[2019-07-09 17:33] VITALS: BP 122/67
[2019-07-09] MEDS: ENOXAPARIN 40 MG/0.4 ML (LOVENOX) SYR SQ SCH (18:09)
[2019-07-09 19:11] VITALS: BP 122/67
[2019-07-09] MEDS: ATENOLOL 25 MG (TENORMIN) TAB PO SCH (20:55)
[2019-07-09] MEDS: ROSUVASTATIN 10 MG (CRESTOR) TABLET PO SCH (20:55)
[2019-07-09] MEDS: CATHETER FLUSH 10 ML SYR IV SCH (20:55)
[2019-07-09] MEDS: diphenhydrAMINE 25 MG TAB (BENADRYL) PO SCH (20:56)
[2019-07-09] MEDS: PATCH REMOVAL TP SCH (20:57)
[2019-07-10] MEDS: RT-ALBUTEROL/IPRATROPIUM 3 ML (DUONEB) VIAL INH SCH ×4 (02:36→18:45)
[2019-07-10] MEDS: guaiFENesin/CODEINE (ROBITUSSIN AC) 10ML UDC PO PRN ×4 (02:52→17:57)
[2019-07-10 05:26] VITALS: BP 102/66
[2019-07-10] MEDS: inSUlin ASPART (NovoLOG) 1 UNIT/0.01 ML (CHARGE PER UNIT) SC SCH ×4 (05:37→20:00)
[2019-07-10] MEDS: NYSTATIN ORAL SUSP 5 ML UDC PO SCH ×3 (06:15→17:57)
[2019-07-10] MEDS: CATHETER FLUSH 10 ML SYR IV SCH ×3 (06:15→22:06)
[2019-07-10] MEDS: predniSONE 20 MG TAB PO SCH (06:16)
[2019-07-10] MEDS: POLYETHYLENE GLYCOL 17 GM (MIRALAX) PACK PO SCH ×2 (09:31→20:43)
[2019-07-10] MEDS: FUROSEMIDE 40 MG/4 ML INJ (LASIX) IVP SCH (09:31)
[2019-07-10] MEDS: SENNA W/DOCUSATE (SENOKOT S) TABLET PO SCH ×2 (09:31→20:43)
[2019-07-10] MEDS: LIDOCAINE 4% (SALONPAS) PATCH TOP SCH (09:31)
[2019-07-10] MEDS: SPIRONOLACTONE 25 MG (ALDACTONE) TAB PO SCH (09:32)
[2019-07-10] MEDS: LOSARTAN 25 MG (COZAAR) TAB PO SCH (09:32)
[2019-07-10] MEDS: RANOLAZINE ER 500 MG TAB (RANEXA) PO SCH ×2 (09:32→20:40)
[2019-07-10] MEDS: amLODIPine 5 MG (NORVASC) TAB PO SCH (09:32)
[2019-07-10] MEDS: PANTOPRAZOLE 40 MG (PROTONIX) TAB PO SCH (09:32)
[2019-07-10] MEDS: ASPIRIN E.C. 81 MG (ECOTRIN) TAB PO SCH (09:33)
[2019-07-10] MEDS: VITAMIN D3 1,000 UNITS (CHOLECALCIFEROL) TABLET PO SCH (09:33)
[2019-07-10] MEDS: fluCOnazole (DIFLUCAN) 100 MG TAB PO SCH (09:34)
[2019-07-10] MEDS: DOCUSATE SODIUM 100 MG (COLACE) CAP PO SCH ×2 (09:36→20:42)
[2019-07-10] MEDS: LEVOFLOXACIN 500 MG TAB (LEVAQUIN) PO SCH (11:53)
[2019-07-10] MEDS ORDERED: KCL 10 MEQ TAB (MICRO K) PO ONE (12:45)
--- NOTE | 2019-07-10 12:49 | PM&R Progress Note ---
Subjective HPI/CC On Admission Date Seen by Provider: Jul 10, 2019 Time Seen by Provider: 12:15 Subjective/Events-last exam Bowels are moving per her regular maintenance Patient reports cough is much improved and she is breathing better since the IV Lasix has removed a lot of excess fluid No pain is reported except for low back Blood sugars are much improved and changed her diet to carbohydrate limiting We'll start potassium due to Lasix diuresis will cause hypokalemia Overall benefitting from intensive therapy regimen. Conferred with RN Reviewed therapy notes Checked meds and labs Review of Systems Pulmonary: Dyspnea, Cough Objective Exam Vital Signs Vital Signs Date Time Temp Pulse Resp B/P (MAP) Pulse Ox O2 Delivery O2 Flow Rate FiO2 07/10/19 09:00 Room Air 07/10/19 07:13 88 3.00 07/10/19 05:26 36.6 54 18 102/66 (78) 07/06/19 12:36 21 Capillary Refill : Less Than 3 SecondsLess Than 3 Seconds General Appearance: No Apparent Distress, WD/WN, Chronically ill HEENT: PERRL/EOMI, Normal ENT Inspection, Pharynx Normal Neck: Full Range of Motion, Normal Inspection, Non Tender, Supple, Carotid Bruit Respiratory: Chest Non Tender, No Accessory Muscle Use, No Respiratory Distress, Crackles, Decreased Breath Sounds, Wheezing Cardiovascular: Regular Rate, Rhythm, No Edema, No Gallop, No JVD, No Murmur, Normal Peripheral Pulses Gastrointestinal: Normal Bowel Sounds, No Organomegaly, No Pulsatile Mass, Non Tender, Soft Back: Normal Inspection, No CVA Tenderness, No Vertebral Tenderness Extremity: Normal Capillary Refill, Normal Inspection, Normal Range of Motion, Non Tender, No Calf Tenderness, No Pedal Edema Neurologic/Psychiatric: Alert, Oriented x3, No Motor/Sensory Deficits (generalized weakness), Normal Mood/Affect, layout operator II-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 FIM Transfers Therapy Code Descriptions/Definitions Functional [place] Measure: 0=Not Assessed/NA 4=Minimal Assistance 1=Total Assistance 5=Supervision or Setup 2=Maximal Assistance 6=Modified [place] 3=Moderate Assistance 7=Complete IndependenceSCALE: Activities may be completed with or without assistive devices. 6-Wdoqpxnrxi-kpiqadh completes the activity by him/herself with no assistance from a helper. 5-Set-up or Clean-up Assistance-helper sets up or cleans up; patient completes activity. [place] assists only prior to or following the activity. 4-Supervision or Touching Assistance-helper provides verbal cues and/or touching/steadying and/or contact guard assistance as patient completes activity. Assistance may be provided throughout the activity or intermittently. 3-Partial/Moderate Assistance-helper does LESS THAN HALF the effort. [place] lifts, holds or supports trunk or limbs, but provides less than half the effort. 2-Substantial/Maximal Assistance-helper does MORE THAN HALF the effort. [place] lifts or holds trunk or limbs and provides more than half the effort. 0-Sbfjqtpmi-hskxyz does ALL the effort. Patient does none of the effort to complete the activity. Or, the assistance of 2 or more helpers is required for the patient to complete the activity. If activity was not attempted, code reason: 7-Patient Refused. 9-Not Applicable-not attempted and the patient did not perform the activity before the current illness, exacerbation or injury. 10-Not Attempted due to Environmental Limitations-(lack of equipment, weather restraints, etc.). 88-Not Attempted due to Medical Conditions or Safety Concerns. Roll Left to Right (QC): 6 Sit to Lying (QC): 5 Sit to Stand (QC): 4 Chair/Lrx-sn-Bcoci Xfer(QC): 4 Gait Training Does the Patient Walk?: Yes Distance: 7 ft x2 Walk 10 feet (QC): 4 Walk 50 ft with 2 Turns(QC): 4 Walk 150 ft (QC): 88 Walking 10ft/uneven surface-QC: 88 Gait Persons Needed: 1 Gait Assistive Device: FWW Wheelchair Training Does the Pt Use a Wheelchair?: Yes Distance: 150' Wheel 50 ft with 2 turns (QC): 5 Wheel 150 ft (QC): 5 Type of Wheelchair: Manual Stair Training #of Steps: 88 1 Step (curb) (QC): 88 4 Steps (QC): 88 12 Steps (QC): 88 Balance Picking up an Object (QC): 88 ADL-Treatment Eating (QC): 6 Oral Hygiene (QC): 6 Shower/Bathe Self (QC): 6 (Sitting in w/c in front of sink for sponge bath.) Upper Body Dressing (QC): 5 Lower Body Dressing (QC): 3 On/Off Footwear (QC): 5 Toileting Hygiene (QC): 3 Toilet Transfer (QC): 4 Assessment/Plan Assessment and Plan Assess & Plan/Chief Complaint Assessment: PNA with debility Volume overload responded to Lasix DM HTN CAD h/o UTI Chronic back pain Plan: Monitor BP and BS Home meds Pain meds IRF protocol Nebs ICS Much improved air movement today IV Lasix Potassium supplement (1) Debility (2) IDDM (insulin dependent diabetes mellitus) Status: Acute (3) CAD (coronary artery disease) Status: Chronic (4) Vertigo Status: Acute (5) HTN (hypertension) Status: Acute (1) Right lower lobe pneumonia Status: Acute (2) Hypoxia Status: Acute (3) Generalized weakness Status: Acute (4) COPD exacerbation Status: Acute (5) Debility (6) HTN (hypertension) Status: Acute (7) CAD (coronary artery disease) Status: Chronic (8) IDDM (insulin dependent diabetes mellitus) Status: Acute CHELY ESPARZA DO Jul 10, 2019 12:49
[2019-07-10] MEDS: HYDROCHLOROTHIAZIDE 25 MG (HCTZ) TAB PO SCH (17:09)
[2019-07-10 17:24] VITALS: BP 128/81
[2019-07-10] MEDS: ENOXAPARIN 40 MG/0.4 ML (LOVENOX) SYR SQ SCH (17:57)
[2019-07-10 20:00] VITALS: BP 112/65
[2019-07-10] MEDS: diphenhydrAMINE 25 MG TAB (BENADRYL) PO SCH (20:41)
[2019-07-10] MEDS: ATENOLOL 25 MG (TENORMIN) TAB PO SCH (20:41)
[2019-07-10] MEDS: ROSUVASTATIN 10 MG (CRESTOR) TABLET PO SCH (20:41)
[2019-07-10] MEDS: PATCH REMOVAL TP SCH (20:44)
--- NOTE | 2019-07-10 21:00 | NUR ---
CHEERFUL AND COOPERATIVE. ADMITS TO PAIN BEING AN "8", BUT WANTS TO HOLD OFF ON PAIN MEDICATIONS UNTIL BEDTIME. IS HAPPY THAT "I WALKED 10 FEET TODAY". REQUESTED TO GET UP TO COMMODE - STATES TOO SOB WHEN AMBULATING TO BATHROOM.
--- NOTE | 2019-07-10 22:00 | NUR ---
BLOOD SUGAR WAS 137. PATIENT ADJUSTS LEVEMIR AT HOME ACCORDING TO BLOOD SUGAR LEVEL. SHE REQUESTED 13 U BE GIVEN TO HER AT THIS TIME. SNACK ALSO GIVEN.
[2019-07-10] MEDS: HYDROcodone/APAP 7.5 MG/325 MG (LORTAB, LORCET PLUS) TABLET PO PRN (22:06)
[2019-07-11] MEDS: guaiFENesin/CODEINE (ROBITUSSIN AC) 10ML UDC PO PRN ×6 (00:16→22:15)
[2019-07-11] MEDS: NYSTATIN ORAL SUSP 5 ML UDC PO SCH ×4 (00:16→18:03)
[2019-07-11] MEDS: RT-ALBUTEROL/IPRATROPIUM 3 ML (DUONEB) VIAL INH SCH ×5 (02:13→22:39)
[2019-07-11] MEDS: CATHETER FLUSH 10 ML SYR IV SCH ×3 (05:35→22:14)
[2019-07-11 06:00] VITALS: BP 121/59
[2019-07-11] MEDS: predniSONE 20 MG TAB PO SCH (06:00)
[2019-07-11] MEDS: KCL 10 MEQ TAB (MICRO K) PO SCH (06:00)
--- NOTE | 2019-07-11 06:00 | NUR ---
STILL A FREQUENT COUGH AND MEDICATED WITH ROBITUSSIN X 2 THIS SHIFT. COUGH IS BECOMING MORE PRODUCTIVE. DOESN'T LIKE TO TAKE LORTAB IN THE DAYTIME BECAUSE STATES MAKES HER DROWSY. WILL CHECK WITH FOR MILDER PAIN MED FOR DAYTIME.
[2019-07-11 06:39] LABS: BASOPHILS % (AUTO) 0 % (0-10); EOSINOPHILS % (AUTO) 0 % (0-10); HEMATOCRIT 41 % (35-52); HEMOGLOBIN 13.9 G/DL (11.5-16.0); LYMPHOCYTES # (AUTO) 0.7 X 10^3 (1.0-4.0); LYMPHOCYTES % (AUTO) 10 % (12-44); MEAN CORPUSCULAR HEMOGLOBIN 34 PG (25-34); MEAN CORPUSCULAR HGB CONC 34 G/DL (32-36); MEAN CORPUSCULAR VOLUME 99 FL (80-99); MEAN PLATELET VOLUME 10.1 FL (7.4-10.4); MONOCYTES % (AUTO) 13 % (0-12); NEUTROPHILS # (AUTO) 5.7 X 10^3 (1.8-7.8); NEUTROPHILS % (AUTO) 77 % (42-75); PLATELET COUNT 129 10^3/uL (130-400); RED CELL DISTRIBUTION WIDTH 12.5 % (10.0-14.5); WHITE BLOOD COUNT 7.5 10^3/uL (4.3-11.0)
[2019-07-11] MEDS: inSUlin ASPART (NovoLOG) 1 UNIT/0.01 ML (CHARGE PER UNIT) SC SCH ×4 (06:43→19:24)
[2019-07-11 07:07] LABS: ALANINE AMINOTRANSFERASE 20 U/L (0-55); ALBUMIN 3.3 GM/DL (3.2-4.5); ALKALINE PHOSPHATASE 53 U/L (40-136); BILIRUBIN,TOTAL 0.6 MG/DL (0.1-1.0); BUN/CREATININE RATIO 20; CALCIUM 8.9 MG/DL (8.5-10.1); CARBON DIOXIDE 28 MMOL/L (21-32); CHLORIDE 98 MMOL/L (98-107); CREATININE SERUM 0.76 MG/DL (0.60-1.30); GFR ESTIMATED > 60; GLUCOSE 84 MG/DL (70-105); POTASSIUM 3.6 MMOL/L (3.6-5.0); SODIUM 134 MMOL/L (135-145); TOTAL PROTEIN 5.4 GM/DL (6.4-8.2)
--- NOTE | 2019-07-11 08:37 | PM&R Progress Note ---
Subjective HPI/CC On Admission Date Seen by Provider: Jul 11, 2019 Time Seen by Provider: 08:45 Subjective/Events-last exam Pt having a pretty good day. No BM so laxatives will be given. Cough continues. Potassium 3.6, maintain on supplement. No pain is reported . Overall benefitting from intensive therapy regimen. Conferred with RN Reviewed therapy notes Checked meds and labs Review of Systems General: Fatigue Pulmonary: Dyspnea, Cough Objective Exam Vital Signs Vital Signs Date Time Temp Pulse Resp B/P (MAP) Pulse Ox O2 Delivery O2 Flow Rate FiO2 07/11/19 18:58 Nasal Cannula 3.00 07/11/19 18:50 37.0 60 18 120/65 (83) 92 07/11/19 15:46 32 Capillary Refill : Less Than 3 SecondsLess Than 3 Seconds General Appearance: No Apparent Distress, WD/WN, Chronically ill HEENT: PERRL/EOMI, Normal ENT Inspection, Pharynx Normal Neck: Full Range of Motion, Normal Inspection, Non Tender, Supple, Carotid Bruit Respiratory: Chest Non Tender, No Accessory Muscle Use, No Respiratory D istress, Crackles, Decreased Breath Sounds, Wheezing Cardiovascular: Regular Rate, Rhythm, No Edema, No Gallop, No JVD, No Murmur, Normal Peripheral Pulses Gastrointestinal: Normal Bowel Sounds, No Organomegaly, No Pulsatile Mass, Non Tender, Soft Back: Normal Inspection, No CVA Tenderness, No Vertebral Tenderness Extremity: Normal Capillary Refill, Normal Inspection, Normal Range of Motion, Non Tender, No Calf Tenderness, No Pedal Edema Neurologic/Psychiatric: Alert, Oriented x3, No Motor/Sensory Deficits (generalized weakness), Normal Mood/Affect, engraver pantograph II-XII Norm as Tested Skin: Normal Color, Warm/Dry Lymphatic: No Adenopathy Results/Procedures Lab Laboratory Tests 07/11/19 05:40 Patient resulted labs reviewed. FIM Transfers Therapy Code Descriptions/Definitions Functional [place] Measure: 0=Not Assessed/NA 4=Minimal Assistance 1=Total Assistance 5=Supervision or Setup 2=Maximal Assistance 6=Modified [place] 3=Moderate Assistance 7=Complete IndependenceSCALE: Activities may be completed with or without assistive devices. 9-Aqkzaaxpia-yxqlizm completes the activity by him/herself with no assistance from a helper. 5-Set-up or Clean-up Assistance-helper sets up or cleans up; patient completes activity. [place] assists only prior to or following the activity. 4-Supervision or Touching Assistance-helper provides verbal cues and/or touching/steadying and/or contact guard assistance as patient completes activity. Assistance may be provided throughout the activity or intermittently. 3-Partial/Moderate Assistance-helper does LESS THAN HALF the effort. [place] lifts, holds or supports trunk or limbs, but provides less than half the effort. 2-Substantial/Maximal Assistance-helper does MORE THAN HALF the effort. [place] lifts or holds trunk or limbs and provides more than half the effort. 8-Qtgqgidkz-qlrcwp does ALL the effort. Patient does none of the effort to complete the activity. Or, the assistance of 2 or more helpers is required for the patient to complete the activity. If activity was not attempted, code reason: 7-Patient Refused. 9-Not Applicable-not attempted and the patient did not perform the activity before the current illness, exacerbation or injury. 10-Not Attempted due to Environmental Limitations-(lack of equipment, weather restraints, etc.). 88-Not Attempted due to Medical Conditions or Safety Concerns. Roll Left to Right (QC): 6 Sit to Lying (QC): 5 Sit to Stand (QC): 4 Chair/Gpl-fo-Ktoij Xfer(QC): 4 Gait Training Does the Patient Walk?: Yes Distance: 7 ft x2 Walk 10 feet (QC): 4 Walk 50 ft with 2 Turns(QC): 4 Walk 150 ft (QC): 88 Walking 10ft/uneven surface-QC: 88 Gait Persons Needed: 1 Gait Assistive Device: FWW Wheelchair Training Does the Pt Use a Wheelchair?: Yes Distance: 150' Wheel 50 ft with 2 turns (QC): 5 Wheel 150 ft (QC): 5 Type of Wheelchair: Manual Stair Training #of Steps: 88 1 Step (curb) (QC): 88 4 Steps (QC): 88 12 Steps (QC): 88 Balance Picking up an Object (QC): 88 ADL-Treatment Eating (QC): 6 Oral Hygiene (QC): 6 Shower/Bathe Self (QC): 6 (Sitting in w/c in front of sink for sponge bath.) Upper Body Dressing (QC): 5 Lower Body Dressing (QC): 3 On/Off Footwear (QC): 5 Toileting Hygiene (QC): 3 Toilet Transfer (QC): 4 Assessment/Plan Assessment and Plan Assess & Plan/Chief Complaint Assessment: PNA with debility Volume overload responded to Lasix DM HTN CAD h/o UTI Chronic back pain Plan: Monitor BP and BS Home meds Pain meds IRF protocol Nebs ICS Much improved air movement today IV Lasix Potassium supplement (1) Debility (2) IDDM (insulin dependent diabetes mellitus) Status: Acute (3) CAD (coronary artery disease) Status: Chronic (4) Vertigo Status: Acute (5) HTN (hypertension) Status: Acute (1) Right lower lobe pneumonia Status: Acute (2) Hypoxia Status: Acute (3) Generalized weakness Status: Acute (4) COPD exacerbation Status: Acute (5) Debility (6) HTN (hypertension) Status: Acute (7) CAD (coronary artery disease) Status: Chronic (8) IDDM (insulin dependent diabetes mellitus) Status: Acute CHELY ESPARZA DO Jul 11, 2019 08:37
[2019-07-11] MEDS: LOSARTAN 25 MG (COZAAR) TAB PO SCH (08:51)
[2019-07-11] MEDS: PANTOPRAZOLE 40 MG (PROTONIX) TAB PO SCH (08:51)
[2019-07-11] MEDS: SPIRONOLACTONE 25 MG (ALDACTONE) TAB PO SCH (08:51)
[2019-07-11] MEDS: amLODIPine 5 MG (NORVASC) TAB PO SCH (08:51)
[2019-07-11] MEDS: SENNA W/DOCUSATE (SENOKOT S) TABLET PO SCH ×2 (08:51→21:33)
[2019-07-11] MEDS: DOCUSATE SODIUM 100 MG (COLACE) CAP PO SCH ×2 (08:51→21:07)
[2019-07-11] MEDS: RANOLAZINE ER 500 MG TAB (RANEXA) PO SCH ×2 (08:52→21:08)
[2019-07-11] MEDS: fluCOnazole (DIFLUCAN) 100 MG TAB PO SCH (08:52)
[2019-07-11] MEDS: VITAMIN D3 1,000 UNITS (CHOLECALCIFEROL) TABLET PO SCH (08:52)
[2019-07-11] MEDS: ASPIRIN E.C. 81 MG (ECOTRIN) TAB PO SCH (08:52)
--- NOTE | 2019-07-11 08:52 | Occupational Ther Daily Note ---
OT Current Status-Daily Note Subjective Pt alert, lying in bed. Pt states that she took a turn for the worse this weekend, she is now using O2 at 2L. Pt also stated that she was able to walk 10 steps this weekend. Pt agrees to therapy stating that she feels worse but will attempt therapy. Mental Status/Objective Patient Orientation: Person, Place, Time, Situation Attachments: IV, Oxygen (2L) ADL-Treatment Pt declines shower, agrees to minimal sponge bath. Pt completes own meal set up and uses regular utensils to eat. With HOB raised, pt able to go from supine to EOB. Pt transferred from EOB to w/c with SBA. Maneuvered w/c to bathroom, increase UE strength. CGA in standing while pt manipulated clothing. Pt able to reach front area and bathe upper body and LE's. Pt required assist to cleanse buttocks in standing due to decreased activity tolerance. Pt transferred to/from toilet with CGA for safety. Pt completed oral care and grooming sitting at sink. Pt required increased time to complete all tasks due to decreased activity tolerance requiring multiple recovery breaks, increased coughing. Pt donned/doffed gown by self after set up. Pt doffed briefs with CGA and assist to thread feet into briefs then assist to pull up in back. After therapy, pt sitting in recliner with call light/phone in reach. All needs met in room. Therapy Code Descriptions/Definitions Functional [place] Measure: 0=Not Assessed/NA 4=Minimal Assistance 1=Total Assistance 5=Supervision or Setup 2=Maximal Assistance 6=Modified [place] 3=Moderate Assistance 7=Complete IndependenceSCALE: Activities may be completed with or without assistive devices. 2-Iymmfigwko-uhtfnlb completes the activity by him/herself with no assistance from a helper. 5-Set-up or Clean-up Assistance-helper sets up or cleans up; patient completes activity. [place] assists only prior to or following the activity. 4-Supervision or Touching Assistance-helper provides verbal cues and/or touching/steadying and/or contact guard assistance as patient completes activity. Assistance may be provided throughout the activity or intermittently. 3-Partial/Moderate Assistance-helper does LESS THAN HALF the effort. [place] lift s, holds or supports trunk or limbs, but provides less than half the effort. 2-Substantial/Maximal Assistance-helper does MORE THAN HALF the effort. [place] lifts or holds trunk or limbs and provides more than half the effort. 6-Oowftlfgx-cnnhej does ALL the effort. Patient does none of the effort to complete the activity. Or, the assistance of 2 or more helpers is required for the patient to complete the activity. If activity was not attempted, code reason: 7-Patient Refused. 9-Not Applicable-not attempted and the patient did not perform the activity before the current illness, exacerbation or injury. 10-Not Attempted due to Environmental Limitations-(lack of equipment, weather restraints, etc.). 88-Not Attempted due to Medical Conditions or Safety Concerns. Eating (QC): 6 Oral Hygiene (QC): 6 Shower/Bathe Self (QC): 3 (Mod A) Upper Body Dressing (QC): 5 Toileting Hygiene (QC): 3 (Mod A) Toilet Transfer (QC): 4 (CGA) OT Short Term Goals Short Term Goals Time Frame: Jul 12, 2019 Upper body dressin Lower body dressin Putting on/taking off footwear: 3 OT Fdc Goals Chipper Operator Goals Time Frame: Jul 19, 2019 Eating (QC): 5 Oral Hygiene (QC): 6 Toileting Hygiene (QC): 6 Shower/Bathe Self (QC): 3 Upper Body Dressing (QC): 6 Lower Body Dressing (QC): 3 On/Off Footwear (QC): 6 Additional Goals: 1-Demonstrate ADL Tasks, 2-Verbalize Understanding, 3- ImproveStrength/Arabella 1=Demonstrate adherence to instructed precautions during ADL tasks. 2=Patient will verbalize/demonstrate understanding of assistive devices/modifications for ADL. 3=Patient will improve strength/tolerance for activity to enable patient to perform ADL's. OT Education/Plan Problem List/Assessment Assessment: Decreased Activ Tolerance Discharge Recommendations Plan/Recommendations: Continue POC Treatment Plan/Plan of Care Patient would benefit from OT for education, treatment and training to promote independence in ADL's, mobility, safety and/or upper extremity function for ADL's. Plan of Care: ADL Retraining, Caregiver Training Treatment Duration: Jul 19, 2019 Frequency: 2 times per month Estimated Hrs Per Day: 1.5 hours per day Agreement: Yes Rehab Potential: Fair Time/GCodes Start Time: 08:00 Stop Time: 09:30 Total Time Billed (hr/min): 90 Billed Treatment Time 1 visit-ADL 6 (90 min) MALIHA CATES Jul 11, 2019 08:52
[2019-07-11] MEDS: LIDOCAINE 4% (SALONPAS) PATCH TOP SCH (08:54)
[2019-07-11] MEDS: POLYETHYLENE GLYCOL 17 GM (MIRALAX) PACK PO SCH ×2 (08:54→21:08)
[2019-07-11] MEDS: FUROSEMIDE 40 MG/4 ML INJ (LASIX) IVP SCH (08:54)
--- NOTE | 2019-07-11 11:10 | Physical Therapy Daily Note ---
PT Daily Note-Current Subjective Pt sitting in recliner with feet elevated upon arrival. Pt agrees to PT although still reports feeling weak and fatiguing easily. DIRECTORY OPERATOR has noticed some self limitation and encourages pt to push self for progress. Pain Location: No Pain Reported Mental Status Patient Orientation: Person, Place, Situation Attachments: SCD's, Oxygen (2L) Transfers SCALE: Activities may be completed with or without assistive devices. 4-Ggojwxfjmn-aaefoou completes the activity by him/herself with no assistance from a helper. 5-Set-up or Clean-up Assistance-helper sets up or cleans up; patient completes activity. [place] assists only prior to or following the activity. 4-Supervision or Touching Assistance-helper provides verbal cues and/or touching/steadying and/or contact guard assistance as patient completes activity. Assistance may be provided throughout the activity or intermittently. 3-Partial/Moderate Assistance-helper does LESS THAN HALF the effort. [place] lifts, holds or supports trunk or limbs, but provides less than half the effort. 2-Substantial/Maximal Assistance-helper does MORE THAN HALF the effort. [place] lifts or holds trunk or limbs and provides more than half the effort. 7-Jcfeiufdu-zpsbzg does ALL the effort. Patient does none of the effort to complete the activity. Or, the assistance of 2 or more helpers is required for the patient to complete the activity. If activity was not attempted, code reason: 7-Patient Refused. 9-Not Applicable-not attempted and the patient did not perform the activity before the current illness, exacerbation or injury. 10-Not Attempted due to Environmental Limitations-(lack of equipment, weather restraints, etc.). 88-Not Attempted due to Medical Conditions or Safety Concerns. Sit to Stand (QC): 4 Toilet Transfer (QC): 3 Weight Bearing Full Weight Bearing Full Weight Bearing Gait Training Does the Patient Walk?: Yes Distance: 15' Walk 10 feet (QC): 4 Gait Persons Needed: 1 Gait Assistive Device: FWW Pt fatigues very quickly, reporting feeling SOA. Wheelchair Training Does the Pt Use a Wheelchair?: Yes Type of Wheelchair: Manual Pt is able to maneuver W/C in bathroom and to recliner when fatigued. Exercises Supine Ex: Ankle pumps, Quad Set, Heel Slides, Hip abd/add Supine Reps: 20 Seated Therapy Exercises: Ankle pumps, Long arc quads, Hip flexion, Kicking activity Seated Reps: 20 Treatments Pt takes protein snack since Blood Sugar was a little lower than pt's normal. DIRECTORY OPERATOR and pt discuss educational items such as need to keep Blood Sugar in good range for exercise, reviewed HEP, Pt then completes Ex. Pt transfers to standing and ambulates to restroom using FWW. Pt is fatigued and SOA even w/O2 and rests at toilet. Pt then attempts twice before standing to doff brief. After toileting, pt transfers to W/C due to still feeling weak. Pt washes hands then propels to recliner & completes SPT. Pt resting in recliner with feet elevated at end of Rx. Pt has all needs met, call light in hand. Assessment Current Status: Fair Progress Pt needs redirection to continue on task. Pt takes extended time to complete task to due to weakness and fatigue. PT Short Term Goals Short Term Goals Time Frame: Jul 12, 2019 Roll Left & Right: 6 Sit to lyin Lying to sitting on side of be: 6 Sit to stand: 4 Chair/jhs-kj-tzbxf transfer: 4 Toilet transfer: 4 Walk 10 feet: 4 Walk 50 feet with two turns: 4 PT Fpc Goals Fpc Goals PT English Language Arts Teacher Goals Time Frame: Jul 26, 2019 Roll Left & Right (QC): 6 Sit to Lying (QC): 6 Lying-Sitting on Side/Bed(QC): 6 Sit to Stand (QC): 6 Chair/Bdh-qq-Tlxjf Xfer(QC): 6 Toilet Transfer (QC): 6 Car Transfer (QC): 6 Walk 10 feet (QC): 6 Walk 50ft with 2 Turns (QC): 6 Walk 150 ft (QC): 6 Walking 10ft on Uneven Surface: 6 1 Step (curb) (QC): 4 4 Steps (QC): 4 PT Plan Problem List Problem List: Activity Tolerance, Functional Strength, Safety, Balance, Gait, Transfer Treatment/Plan Treatment Plan: Continue Plan of Care Treatment Plan: Bed Mobility, Concurrent Therapy, Education, Functional Activity Arabella, Functional Strength, Group Therapy, Gait, Safety, Therapeutic Exercise, Transfers Treatment Duration: Jul 26, 2019 Frequency: At least 5 of 7 days/Wk (IRF) Estimated Hrs Per Day: 1.5 hours per day Patient and/or Family Agrees t: Yes Safety Risks/Education Patient Education: Gait Training, Transfer Techniques, Correct Positioning, Safety Issues Teaching Recipient: Patient Teaching Methods: Discussion Response to Teaching: Verbalize Understanding Time/GCodes Time In: 930 Time Out: 1045 Total Billed Treatment Time: 75 Total Billed Treatment 1, GT (15m), EX x2 (25m) & FA x2 (35m) GEOVANNA MENDOZA DIRECTORY OPERATOR Jul 11, 2019 11:10
[2019-07-11] MEDS: LEVOFLOXACIN 500 MG TAB (LEVAQUIN) PO SCH (13:08)
[2019-07-11] MEDS: HYDROcodone/APAP 7.5 MG/325 MG (LORTAB, LORCET PLUS) TABLET PO PRN ×2 (13:09→22:15)
--- NOTE | 2019-07-11 13:38 | Speech Therapy Daily Note ---
Speech Daily Progress Note Subjective Date Seen by Provider: Jul 11, 2019 Time Seen by Provider: 11:30 Patient was alert and cooperative for all therapy tasks. Patient reported that she was very tired this morning. Patient sat upright in her chair for the duration of treatment tasks. Objective Patient completed compensatory strategies pertaining to sitting upright and alternating liquids and solids with 90% accuracy and minimal cues. Assessment Assessment Current Status: Good Progress Treatment Plan Continue Plan of Care Speech Short Term Goals Short Term Goals Short Term Goals 1. Patient will tolerate least restrictive diet with s/s of aspiration at 90%. 2. Patient will utilize compensatory strategies as trained at 90% with minimal cues. Speech Fpc Goals Machine Rebuilder Goals Patient will maintain adequate nutrition/hydration via safe and effective swallow function. Speech-Plan Patient/Family Goals Patient/Family Goals: Patient reports wanting to return home to previous level of mobility. Treatment Plan Speech Therapy Treatment Plan: Continue Plan of Care Treatment Duration: Jul 15, 2019 Frequency: 5 times per week Estimated Hrs Per Day: .5 hour per day Rehab Potential: Fair Barriers to Learning: Current medical status Pt/Family Agrees to Plan: Yes Safety Risks/Education Teaching Recipient: Patient Teaching Methods: Demonstration, Discussion Response to Teaching: Verbalize Understanding Education Topics Provided: Patient verbalized understanding of continued utilization of compensatory strategies. Time Speech Therapy Time In: 11:30 Speech Therapy Time Out: 12:00 Total Billed Time: 30 Billed Treatment Time 1ROSSANA BETHANIA ST Jul 11, 2019 13:38
[2019-07-11 15:46] VITALS: BP 121/59
[2019-07-11 17:35] VITALS: BP 117/60
[2019-07-11] MEDS: HYDROCHLOROTHIAZIDE 25 MG (HCTZ) TAB PO SCH (17:59)
[2019-07-11] MEDS: ENOXAPARIN 40 MG/0.4 ML (LOVENOX) SYR SQ SCH (18:03)
[2019-07-11 18:50] VITALS: BP 120/65
--- NOTE | 2019-07-11 19:06 | NUR ---
bedside report received from DEYSI MONET, assume care of pt
--- NOTE | 2019-07-11 19:24 | NUR ---
fsbs 183 no ss insulin req
[2019-07-11 21:02] VITALS: BP 120/57
[2019-07-11] MEDS: ATENOLOL 25 MG (TENORMIN) TAB PO SCH (21:07)
--- NOTE | 2019-07-11 21:07 | NUR ---
pt took Colace & miralax but refused Senokot, pt requested i give her Levemir 18 units
[2019-07-11] MEDS: ROSUVASTATIN 10 MG (CRESTOR) TABLET PO SCH (21:08)
[2019-07-11] MEDS: diphenhydrAMINE 25 MG TAB (BENADRYL) PO SCH (21:08)
[2019-07-11] MEDS: PATCH REMOVAL TP SCH (21:32)
--- NOTE | 2019-07-11 22:15 | NUR ---
c/o generalized pain level 8/10 on numeric scale, also c/o cough, lortab7.5 1 tab given & Robitussin 10ml given
--- NOTE | 2019-07-11 23:00 | NUR ---
rates pain level 2/10 on numeric scale
[2019-07-12] MEDS: NYSTATIN ORAL SUSP 5 ML UDC PO SCH ×5 (00:18→23:21)
[2019-07-12] MEDS: RT-ALBUTEROL/IPRATROPIUM 3 ML (DUONEB) VIAL INH SCH ×5 (02:39→21:35)
[2019-07-12 05:38] VITALS: BP 107/57
[2019-07-12] MEDS: inSUlin ASPART (NovoLOG) 1 UNIT/0.01 ML (CHARGE PER UNIT) SC SCH ×4 (06:05→19:53)
[2019-07-12] MEDS: CATHETER FLUSH 10 ML SYR IV SCH ×3 (06:13→20:58)
[2019-07-12] MEDS: guaiFENesin/CODEINE (ROBITUSSIN AC) 10ML UDC PO PRN ×3 (06:13→20:58)
[2019-07-12] MEDS: KCL 10 MEQ TAB (MICRO K) PO SCH (06:35)
[2019-07-12] MEDS: predniSONE 20 MG TAB PO SCH (06:35)
[2019-07-12] MEDS: RT-ALBUTEROL/IPRATROPIUM 3 ML (DUONEB) VIAL INH PRN (07:08)
[2019-07-12 08:00] VITALS: BP 99/61
--- NOTE | 2019-07-12 08:00 | NUR ---
O2 ON AT 3L. STATES DECREASED SOB, IS PRODUCING MORE YELLOW SPUTUM. STATES FEELS STAMINA IS BETTER, BUT AMBULATING INTO HALLWAY YET. NOT TAKING LORTAB IN THE DAYTIME BECAUSE "I DON'T LIKE HOW IT MAKES ME FEEL". ORDER OBTAINED FOR TYLENOL FOR DAY TIME USE. MILD HYPOTENSION AND BRADYCARDIA AND WILL RECHECK LATER. GOING ON 4TH DAY SINCE BM. AGREEABLE TO SOFTENERS AND MIRALAX ONLY THIS AM.
--- NOTE | 2019-07-12 08:02 | PM&R Progress Note ---
Subjective HPI/CC On Admission Date Seen by Provider: Jul 12, 2019 Time Seen by Provider: 08:00 Subjective/Events-last exam No BM for the past 4 days so will initiate aggressive regimen today Lortab taken only at night RT has increased her oxygen to 3 liters Nebulizer treatments changed to every 4 hrs Yellow sputum produced BP is 99 systolic IV Lasix has been discontinued Overall benefitting from intensive therapy regimen. Conferred with RN Reviewed therapy notes Checked meds and labs Review of Systems General: Fatigue Pulmonary: Dyspnea, Cough Gastrointestinal: Constipation Musculoskeletal: back pain Objective Exam Vital Signs Vital Signs Date Time Temp Pulse Resp B/P (MAP) Pulse Ox O2 Delivery O2 Flow Rate FiO2 07/12/19 18:35 Nasal Cannula 2.00 07/12/19 17:10 36.6 52 20 112/67 (82) 92 07/11/19 15:46 32 Capillary Refill : Less Than 3 SecondsLess Than 3 Seconds General Appearance: No Apparent Distress, WD/WN, Chronically ill HEENT: PERRL/EOMI, Normal ENT Inspection, Pharynx Normal Neck: Full Range of Motion, Normal Inspection, Non Tender, Supple, Carotid Bruit Respiratory: Chest Non Tender, No Accessory Muscle Use, No Respiratory Distress, Crackles, Decreased Breath Sounds, Wheezing Cardiovascular: Regular Rate, Rhythm, No Edema, No Gallop, No JVD, No Murmur, Normal Peripheral Pulses Gastrointestinal: Normal Bowel Sounds, No Organomegaly, No Pulsatile Mass, Non Tender, Soft Back: Normal Inspection, No CVA Tenderness, No Vertebral Tenderness Extremity: Normal Capillary Refill, Normal Inspection, Normal Range of Motion, Non Tender, No Calf Tenderness, No Pedal Edema Neurologic/Psychiatric: Alert, Oriented x3, No Motor/Sensory Deficits (generalized weakness), Normal Mood/Affect, duct installer II-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 FIM Transfers Therapy Code Descriptions/Definitions Functional [place] Measure: 0=Not Assessed/NA 4=Minimal Assistance 1=Total Assistance 5=Supervision or Setup 2=Maximal Assistance 6=Modified [place] 3=Moderate Assistance 7=Complete IndependenceSCALE: Activities may be completed with or without assistive devices. 8-Rnkgapgedt-lrxtcib completes the activity by him/herself with no assistance from a helper. 5-Set-up or Clean-up Assistance-helper sets up or cleans up; patient completes activity. [place] assists only prior to or following the activity. 4-Supervision or Touching Assistance-helper provides verbal cues and/or touching/steadying and/or contact guard assistance as patient completes activity. Assistance may be provided throughout the activity or intermittently. 3-Partial/Moderate Assistance-helper does LESS THAN HALF the effort. [place] lifts, holds or supports trunk or limbs, but provides less than half the effort. 2-Substantial/Maximal Assistance-helper does MORE THAN HALF the effort. [place] lifts or holds trunk or limbs and provides more than half the effort. 6-Wfammkpej-anymur does ALL the effort. Patient does none of the effort to complete the activity. Or, the assistance of 2 or more helpers is required for the patient to complete the activity. If activity was not attempted, code reason: 7-Patient Refused. 9-Not Applicable-not attempted and the patient did not perform the activity before the current illness, exacerbation or injury. 10-Not Attempted due to Environmental Limitations-(lack of equipment, weather restraints, etc.). 88-Not Attempted due to Medical Conditions or Safety Concerns. Roll Left to Right (QC): 6 Sit to Lying (QC): 5 Sit to Stand (QC): 4 Chair/Kmc-zt-Bvacw Xfer(QC): 4 Gait Training Does the Patient Walk?: Yes Distance: 15' Walk 10 feet (QC): 4 Walk 50 ft with 2 Turns(QC): 4 Walk 150 ft (QC): 88 Walking 10ft/uneven surface-QC: 88 Gait Persons Needed: 1 Gait Assistive Device: FWW Wheelchair Training Does the Pt Use a Wheelchair?: Yes Distance: 150' Wheel 50 ft with 2 turns (QC): 5 Wheel 150 ft (QC): 5 Type of Wheelchair: Manual Stair Training #of Steps: 88 1 Step (curb) (QC): 88 4 Steps (QC): 88 12 Steps (QC): 88 Balance Picking up an Object (QC): 88 ADL-Treatment Eating (QC): 6 Oral Hygiene (QC): 6 Shower/Bathe Self (QC): 3 (Mod A) Upper Body Dressing (QC): 5 Lower Body Dressing (QC): 3 On/Off Footwear (QC): 5 Toileting Hygiene (QC): 3 (Mod A) Toilet Transfer (QC): 4 (CGA) Assessment/Plan Assessment and Plan Assess & Plan/Chief Complaint Assessment: PNA with debility Volume overload responded to Lasix DM HTN CAD h/o UTI Chronic back pain Constipation Plan: Monitor BP and BS Home meds Pain meds IRF protocol Nebs ICS Much improved air movement today but still severe COPD IV Lasix completed Potassium supplement (1) Debility (2) IDDM (insulin dependent diabetes mellitus) Status: Acute (3) CAD (coronary artery disease) Status: Chronic (4) Vertigo Status: Acute (5) HTN (hypertension) Status: Acute (1) Right lower lobe pneumonia Status: Acute (2) Hypoxia Status: Acute (3) Generalized weakness Status: Acute (4) COPD exacerbation Status: Acute (5) Debility (6) HTN (hypertension) Status: Acute (7) CAD (coronary artery disease) Status: Chronic (8) IDDM (insulin dependent diabetes mellitus) Status: Acute CHELY ESPARZA DO Jul 12, 2019 08:01
[2019-07-12] MEDS: VITAMIN D3 1,000 UNITS (CHOLECALCIFEROL) TABLET PO SCH (08:10)
[2019-07-12] MEDS: RANOLAZINE ER 500 MG TAB (RANEXA) PO SCH ×2 (08:11→20:56)
[2019-07-12] MEDS: DOCUSATE SODIUM 100 MG (COLACE) CAP PO SCH ×2 (08:11→20:57)
[2019-07-12] MEDS: SENNA W/DOCUSATE (SENOKOT S) TABLET PO SCH ×2 (08:11→20:59)
[2019-07-12] MEDS: fluCOnazole (DIFLUCAN) 100 MG TAB PO SCH (08:12)
[2019-07-12] MEDS: PANTOPRAZOLE 40 MG (PROTONIX) TAB PO SCH (08:12)
[2019-07-12] MEDS: ASPIRIN E.C. 81 MG (ECOTRIN) TAB PO SCH (08:12)
[2019-07-12] MEDS: SPIRONOLACTONE 25 MG (ALDACTONE) TAB PO SCH (08:12)
[2019-07-12] MEDS ORDERED: ACETAMINOPHEN 325 MG TABLET PO PRN (08:15)
--- NOTE | 2019-07-12 08:49 | Occupational Ther Daily Note ---
OT Current Status-Daily Note Subjective Pt alert, lying in bed. Pt just finished with breakfast. Pt states that she is feeling better and is having a more productive cough. Pt agrees to therapy. Mental Status/Objective Patient Orientation: Person, Place, Time, Situation Attachments: IV, Oxygen (2L) ADL-Treatment Pt declines shower, agrees to sponge bath. With HOB raised, pt able to go from supine to EOB. Pt transferred from EOB to w/c with SBA. Ambulated with CGA to bathroom, increase activity tolerance. CGA in standing while pt manipulated clothing. Pt able to reach front area and bathe upper body and LE's. Pt cleansed jose alejandro area/buttocks in standing, CGA due to decreased activity tolerance. Pt transferred to/from toilet with CGA for safety. Pt completed oral care and grooming sitting at sink. Pt required increased time to complete all tasks due to decreased activity tolerance requiring multiple recovery breaks, increased productive cough. Pt donned/doffed gown by self after set up. Pt doffed briefs with CGA and donned/doffed sock by self. After therapy, pt sitting in recliner with call light/phone in reach. CITY ADMINISTRATOR took over care. All ne eds met in room. Therapy Code Descriptions/Definitions Functional [place] Measure: 0=Not Assessed/NA 4=Minimal Assistance 1=Total Assistance 5=Supervision or Setup 2=Maximal Assistance 6=Modified [place] 3=Moderate Assistance 7=Complete IndependenceSCALE: Activities may be completed with or without assistive devices. 2-Wkeqxbbcrc-vauuxsi completes the activity by him/herself with no assistance from a helper. 5-Set-up or Clean-up Assistance-helper sets up or cleans up; patient completes activity. [place] assists only prior to or following the activity. 4-Supervision or Touching Assistance-helper provides verbal cues and/or touching/steadying and/or contact guard assistance as patient completes activity. Assistance may be provided throughout the activity or intermittently. 3-Partial/Moderate Assistance-helper does LESS THAN HALF the effort. [place] lifts, holds or supports trunk or limbs, but provides less than half the effort. 2-Substantial/Maximal Assistance-helper does MORE THAN HALF the effort. [place] lifts or holds trunk or limbs and provides more than half the effort. 3-Ftzxpeeph-dvjgki does ALL the effort. Patient does none of the effort to complete the activity. Or, the assistance of 2 or more helpers is required for the patient to complete the activity. If activity was not attempted, code reason: 7-Patient Refused. 9-Not Applicable-not attempted and the patient did not perform the activity before the current illness, exacerbation or injury. 10-Not Attempted due to Environmental Limitations-(lack of equipment, weather restraints, etc.). 88-Not Attempted due to Medical Conditions or Safety Concerns. Oral Hygiene (QC): 6 Shower/Bathe Self (QC): 4 Upper Body Dressing (QC): 5 Lower Body Dressing (QC): 4 (CGA in standing) On/Off Footwear: 6 Toileting Hygiene (QC): 4 (CGA) Toilet Transfer (QC): 4 (CGA) OT Short Term Goals Short Term Goals Time Frame: Jul 12, 2019 Upper body dressin Lower body dressin Putting on/taking off footwear: 3 OT Shelter Goals Shelter Goals Time Frame: Jul 19, 2019 Eating (QC): 5 Oral Hygiene (QC): 6 Toileting Hygiene (QC): 6 Shower/Bathe Self (QC): 3 Upper Body Dressing (QC): 6 Lower Body Dressing (QC): 3 On/Off Footwear (QC): 6 Additional Goals: 1-Demonstrate ADL Tasks, 2-Verbalize Understanding, 3- ImproveStrength/[place] 1=Demonstrate adherence to instructed precautions during ADL tasks. 2=Patient will verbalize/demonstrate understanding of assistive devices/modifications for ADL. 3=Patient will improve strength/tolerance for activity to enable patient to perform ADL's. OT Education/Plan Problem List/Assessment Assessment: Decreased Activ Tolerance Discharge Recommendations Plan/Recommendations: Continue POC Treatment Plan/Plan of Care Patient would benefit from OT for education, treatment and training to promote independence in ADL's, mobility, safety and/or upper extremity function for ADL's. Plan of Care: ADL Retraining, Caregiver Training Treatment Duration: Jul 19, 2019 Frequency: 2 times per month Estimated Hrs Per Day: 1.5 hours per day Agreement: Yes Rehab Potential: Fair Time/GCodes Start Time: 08:00 Stop Time: 09:15 Total Time Billed (hr/min): 75 Billed Treatment Time 1 visit-ADL 5 (75 min) MALIHA CATES Jul 12, 2019 08:49
[2019-07-12 09:30] VITALS: BP 128/65
[2019-07-12] MEDS: LIDOCAINE 4% (SALONPAS) PATCH TOP SCH (09:32)
[2019-07-12] MEDS: amLODIPine 5 MG (NORVASC) TAB PO SCH (09:33)
[2019-07-12] MEDS: LOSARTAN 25 MG (COZAAR) TAB PO SCH (09:33)
--- NOTE | 2019-07-12 09:59 | Speech Therapy Daily Note ---
Speech Daily Progress Note Subjective Date Seen by Provider: Jul 12, 2019 Time Seen by Provider: 09:15 Patient was alert, pleasant, and cooperative for all therapy tasks. Patient reported that she is feeling much stronger today and her throat continues to feel better with the swish and swallow medication to treat her thrush. Objective Patient completed compensatory strategies pertaining to sitting upright and small sips with 90% accuracy with minimal cues. Assessment Assessment Current Status: Good Progress Treatment Plan Continue Plan of Care Speech Short Term Goals Short Term Goals Short Term Goals 1. Patient will tolerate least restrictive diet with s/s of aspiration at 90%. 2. Patient will utilize compensatory strategies as trained at 90% with minimal cues. Speech Robotic Welding Operator Goals Robotic Welding Operator Goals Patient will maintain adequate nutrition/hydration via safe and effective swallow function. Speech-Plan Patient/Family Goals Patient/Family Goals: Patient reported that she wishes to return home to previous level of mobility and independence. Treatment Plan Speech Therapy Treatment Plan: Continue Plan of Care Treatment Duration: Jul 15, 2019 Frequency: 5 times per week Estimated Hrs Per Day: .5 hour per day Rehab Potential: Fair Barriers to Learning: Current medical status Pt/Family Agrees to Plan: Yes Safety Risks/Education Teaching Recipient: Patient Teaching Methods: Demonstration, Discussion Response to Teaching: Verbalize Understanding Education Topics Provided: Patient verbalized understanding of continued use of compensatory strategies to ensure safe oral intake. Time Speech Therapy Time In: 09:15 Speech Therapy Time Out: 09:45 Total Billed Time: 30 Billed Treatment Time 1, ROSSANA CECE [place] Jul 12, 2019 09:59
[2019-07-12] MEDS: LEVOFLOXACIN 500 MG TAB (LEVAQUIN) PO SCH (11:09)
[2019-07-12] MEDS: POLYETHYLENE GLYCOL 17 GM (MIRALAX) PACK PO SCH ×2 (11:11→20:59)
--- NOTE | 2019-07-12 11:22 | Physical Therapy Daily Note ---
PT Daily Note-Current Subjective Pt. agrees to Rx. States she would really like to be off O2 before she is dismissed. Nurse consulted and gives ok for titrating off during Rx. Pain Location: No Pain Reported Appearance many episodes of coughing during Rx Mental Status Patient Orientation: Normal For Age Attachments: Oxygen (3L to 0L) Transfers SCALE: Activities may be completed with or without assistive devices. 0-Ufpyokjjfs-oxlzgau completes the activity by him/herself with no assistance from a helper. 5-Set-up or Clean-up Assistance-helper sets up or cleans up; patient completes activity. [place] assists only prior to or following the activity. 4-Supervision or Touching Assistance-helper provides verbal cues and/or touching/steadying and/or contact guard assistance as patient completes activity. Assistance may be provided throughout the activity or intermittently. 3-Partial/Moderate Assistance-helper does LESS THAN HALF the effort. [place] lifts, holds or supports trunk or limbs, but provides less than half the effort. 2-Substantial/Maximal Assistance-helper does MORE THAN HALF the effort. [place] lifts or holds trunk or limbs and provides more than half the effort. 4-Efjfqycfx-vwudht does ALL the effort. Patient does none of the effort to complete the activity. Or, the assistance of 2 or more helpers is required for the patient to complete the activity. If activity was not attempted, code reason: 7-Patient Refused. 9-Not Applicable-not attempted and the patient did not perform the activity before the current illness, exacerbation or injury. 10-Not Attempted due to Environmental Limitations-(lack of equipment, weather restraints, etc.). 88-Not Attempted due to Medical Conditions or Safety Concerns. Roll Left & Right (QC): 6 Sit to Lying (QC): 6 Lying to Sitting/Side of Bed(Q: 6 Sit to Stand (QC): 6 Chair/Qyl-ei-Qlqvn Xfer(QC): 6 Weight Bearing Full Weight Bearing Full Weight Bearing Gait Training Does the Patient Walk?: Yes Walk 10 feet (QC): 4 Gait Persons Needed: 1 Gait Assistive Device: FWW 20-25 ft x 6 CGA with w/c follow up as pt c/o shakiness and weakness and wants to sit. Wheelchair Training Does the Pt Use a Wheelchair?: Yes Wheel 50 ft with 2 turns (QC): 5 Type of Wheelchair: Manual brakes and turns indep Exercises Supine Ex: Ankle pumps, Heel Slides, Hip abd/add Supine Reps: 12 Seated Therapy Exercises: Ankle pumps, Sit to stand, Hip flexion, Hip abd/add Seated Reps: 15 NuStep Minutes: 10 NuStep Workload: 2 Treatments pt. was slowly titrated down from 3 L to 0 L with good tolerance and sats remaining 90% and above through all of Rx. Nursing informed but wants pt. left on 1 L after Rx and she will monitor further Assessment Current Status: Good Progress PT Short Term Goals Short Term Goals Time Frame: Jul 12, 2019 Roll Left & Right: 6 Sit to lyin Lying to sitting on side of be: 6 Sit to stand: 4 Chair/osu-he-qenij transfer: 4 Toilet transfer: 4 Walk 10 feet: 4 Walk 50 feet with two turns: 4 PT Group Home Goals Quality Assurance Practice Manager Goals PT Group Home Goals Time Frame: Jul 26, 2019 Roll Left & Right (QC): 6 Sit to Lying (QC): 6 Lying-Sitting on Side/Bed(QC): 6 Sit to Stand (QC): 6 Chair/Oqs-np-Raenh Xfer(QC): 6 Toilet Transfer (QC): 6 Car Transfer (QC): 6 Walk 10 feet (QC): 6 Walk 50ft with 2 Turns (QC): 6 Walk 150 ft (QC): 6 Walking 10ft on Uneven Surface: 6 1 Step (curb) (QC): 4 4 Steps (QC): 4 PT Plan Treatment/Plan Treatment Plan: Continue Plan of Care Treatment Plan: Bed Mobility, Concurrent Therapy, Education, Functional Activity Arabella, Functional Strength, Group Therapy, Gait, Safety, Therapeutic Exercise, Transfers Treatment Duration: Jul 26, 2019 Frequency: At least 5 of 7 days/Wk (IRF) Estimated Hrs Per Day: 1.5 hours per day Patient and/or Family Agrees t: Yes Safety Risks/Education Patient Education: Gait Training, Transfer Techniques, Correct Positioning, W/C Management, Disease Process, Safety Issues Teaching Recipient: Patient Teaching Methods: Demonstration, Discussion Response to Teaching: Verbalize Understanding, Return Demonstration, Reinforcement Needed Time/GCodes Time In: 945 Time Out: 1115 Total Billed Treatment Time: 90 Total Billed Treatment 1,FA45m,EX25m,GT20m KEVAN SOUZA MEMORY CARE DIRECTOR Jul 12, 2019 11:22
--- NOTE | 2019-07-12 13:00 | NUR ---
TYLENOL DID NOT HELP PAIN AND ORDER RECEIVED TO GIVE 1/2 TAB LORTAB FOR PAIN.
[2019-07-12] MEDS: HYDROcodone/APAP 7.5 MG/325 MG (LORTAB, LORCET PLUS) TABLET PO PRN ×2 (13:17→20:57)
--- NOTE | 2019-07-12 16:00 | NUR ---
1/2 TABLET OF LORTAB WORKS WELL IN THE DAY TIME TO CONTROL PAIN. A GOOD DAY.
[2019-07-12] MEDS: HYDROCHLOROTHIAZIDE 25 MG (HCTZ) TAB PO SCH (16:21)
[2019-07-12 17:10] VITALS: BP 112/67
[2019-07-12] MEDS: ENOXAPARIN 40 MG/0.4 ML (LOVENOX) SYR SQ SCH (17:55)
[2019-07-12] MEDS: ROSUVASTATIN 10 MG (CRESTOR) TABLET PO SCH (20:56)
[2019-07-12] MEDS: ATENOLOL 25 MG (TENORMIN) TAB PO SCH (20:57)
[2019-07-12] MEDS: diphenhydrAMINE 25 MG TAB (BENADRYL) PO SCH (20:57)
[2019-07-12] MEDS: PATCH REMOVAL TP SCH (20:58)
[2019-07-13] MEDS: RT-ALBUTEROL/IPRATROPIUM 3 ML (DUONEB) VIAL INH SCH ×7 (02:50→21:17)
[2019-07-13] MEDS: inSUlin ASPART (NovoLOG) 1 UNIT/0.01 ML (CHARGE PER UNIT) SC SCH ×4 (06:11→21:03)
[2019-07-13] MEDS: KCL 10 MEQ TAB (MICRO K) PO SCH (06:11)
[2019-07-13] MEDS: predniSONE 20 MG TAB PO SCH (06:11)
[2019-07-13] MEDS: NYSTATIN ORAL SUSP 5 ML UDC PO SCH ×3 (06:11→18:20)
[2019-07-13] MEDS: CATHETER FLUSH 10 ML SYR IV SCH ×3 (06:12→21:03)
[2019-07-13 06:17] VITALS: BP 110/65
--- NOTE | 2019-07-13 08:00 | NUR ---
STATES SLEPT LIKE A LOG. CONTINUES TO FEEL IS IMPROVING. O2 ON AT 2L.
--- NOTE | 2019-07-13 08:33 | PM&R Progress Note ---
Subjective HPI/CC On Admission Date Seen by Provider: Jul 13, 2019 Time Seen by Provider: 08:45 Subjective/Events-last exam Half a tab of Lortab during the day really helps her. Had two BM's yesterday. Crackles in the lower lobes still remain. IS maintained along with nebulizer treatments. Overall severity of her COPD precludes anything but a long-term poor prognosis. Conferred with RN Reviewed therapy notes Checked meds and labs Review of Systems General: Fatigue Pulmonary: Dyspnea, Cough Objective Exam Vital Signs Vital Signs Date Time Temp Pulse Resp B/P (MAP) Pulse Ox O2 Delivery O2 Flow Rate FiO2 07/13/19 19:02 Nasal Cannula 2.00 07/13/19 17:35 36.6 58 18 115/68 (84) 92 07/11/19 15:46 32 Capillary Refill : Less Than 3 SecondsLess Than 3 Seconds General Appearance: No Apparent Distress, WD/WN, Chronically ill HEENT: PERRL/EOMI, Normal ENT Inspection, Pharynx Normal Neck: Full Range of Motion, Normal Inspection, Non Tender, Supple, Carotid Bruit Respiratory: Chest Non Tender, No Accessory Muscle Use, No Respiratory Distress, Crackles, Decreased Breath Sounds, Wheezing Cardiovascular: Regular Rate, Rhythm, No Edema, No Gallop, No JVD, No Murmur, Normal Peripheral Pulses Gastrointestinal: Normal Bowel Sounds, No Organomegaly, No Pulsatile Mass, Non Tender, Soft Back: Normal Inspection, No CVA Tenderness, No Vertebral Tenderness Extremity: Normal Capillary Refill, Normal Inspection, Normal Range of Motion, Non Tender, No Calf Tenderness, No Pedal Edema Neurologic/Psychiatric: Alert, Oriented x3, No Motor/Sensory Deficits, Normal Mood/Affect, photographer's assistant II-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 FIM Transfers Therapy Code Descriptions/Definitions Functional [place] Measure: 0=Not Assessed/NA 4=Minimal Assistance 1=Total Assistance 5=Supervision or Setup 2=Maximal Assistance 6=Modified [place] 3=Moderate Assistance 7=Complete IndependenceSCALE: Activities may be completed with or without assistive devices. 6-Gbrpjsdxhi-bmnemsh completes the activity by him/herself with no assistance from a helper. 5-Set-up or Clean-up Assistance-helper sets up or cleans up; patient completes activity. [place] assists only prior to or following the activity. 4-Supervision or Touching Assistance-helper provides verbal cues and/or touching/steadying and/or contact guard assistance as patient completes activity. Assistance may be provided throughout the activity or intermittently. 3-Partial/Moderate Assistance-helper does LESS THAN HALF the effort. [place] lifts, holds or supports trunk or limbs, but provides less than half the effort. 2-Substantial/Maximal Assistance-helper does MORE THAN HALF the effort. [place] lifts or holds trunk or limbs and provides more than half the effort. 3-Uqgouqnex-lazdru does ALL the effort. Patient does none of the effort to complete the activity. Or, the assistance of 2 or more helpers is required for the patient to complete the activity. If activity was not attempted, code reason: 7-Patient Refused. 9-Not Applicable-not attempted and the patient did not perform the activity before the current illness, exacerbation or injury. 10-Not Attempted due to Environmental Limitations-(lack of equipment, weather restraints, etc.). 88-Not Attempted due to Medical Conditions or Safety Concerns. Roll Left to Right (QC): 6 Sit to Lying (QC): 6 Sit to Stand (QC): 6 Chair/Hvf-th-Ocgsl Xfer(QC): 6 Gait Training Does the Patient Walk?: Yes Distance: 15' Walk 10 feet (QC): 4 Walk 50 ft with 2 Turns(QC): 4 Walk 150 ft (QC): 88 Walking 10ft/uneven surface-QC: 88 Gait Persons Needed: 1 Gait Assistive Device: FWW Wheelchair Training Does the Pt Use a Wheelchair?: Yes Distance: 150' Wheel 50 ft with 2 turns (QC): 5 Wheel 150 ft (QC): 5 Type of Wheelchair: Manual Stair Training #of Steps: 88 1 Step (curb) (QC): 88 4 Steps (QC): 88 12 Steps (QC): 88 Balance Picking up an Object (QC): 88 ADL-Treatment Eating (QC): 6 Oral Hygiene (QC): 6 Shower/Bathe Self (QC): 4 Upper Body Dressing (QC): 5 Lower Body Dressing (QC): 4 (CGA in standing) On/Off Footwear (QC): 6 Toileting Hygiene (QC): 4 (CGA) Toilet Transfer (QC): 4 (CGA) Assessment/Plan Assessment and Plan Assess & Plan/Chief Complaint Assessment: PNA with debility Volume overload responded to Lasix DM HTN CAD h/o UTI Chronic back pain Constipation Plan: Monitor BP and BS Home meds Pain meds IRF protocol Nebs ICS Much improved air movement today but still severe COPD IV Lasix completed Potassium supplement (1) Debility (2) IDDM (insulin dependent diabetes mellitus) Status: Acute (3) CAD (coronary artery disease) Status: Chronic (4) Vertigo Status: Acute (5) HTN (hypertension) Status: Acute (1) Right lower lobe pneumonia Status: Acute (2) Hypoxia Status: Acute (3) Generalized weakness Status: Acute (4) COPD exacerbation Status: Acute (5) Debility (6) HTN (hypertension) Status: Acute (7) CAD (coronary artery disease) Status: Chronic (8) IDDM (insulin dependent diabetes mellitus) Status: Acute CHELY ESPARZA DO Jul 13, 2019 08:33
[2019-07-13] MEDS: LOSARTAN 25 MG (COZAAR) TAB PO SCH (09:00)
[2019-07-13] MEDS: LIDOCAINE 4% (SALONPAS) PATCH TOP SCH (09:00)
[2019-07-13] MEDS: ASPIRIN E.C. 81 MG (ECOTRIN) TAB PO SCH (09:00)
[2019-07-13] MEDS: RANOLAZINE ER 500 MG TAB (RANEXA) PO SCH ×2 (09:00→21:00)
[2019-07-13] MEDS: VITAMIN D3 1,000 UNITS (CHOLECALCIFEROL) TABLET PO SCH (09:00)
[2019-07-13] MEDS: PANTOPRAZOLE 40 MG (PROTONIX) TAB PO SCH (09:00)
[2019-07-13] MEDS: SPIRONOLACTONE 25 MG (ALDACTONE) TAB PO SCH (09:00)
[2019-07-13] MEDS: SENNA W/DOCUSATE (SENOKOT S) TABLET PO SCH ×2 (09:01→19:52)
[2019-07-13] MEDS: amLODIPine 5 MG (NORVASC) TAB PO SCH (09:01)
[2019-07-13] MEDS: DOCUSATE SODIUM 100 MG (COLACE) CAP PO SCH ×2 (09:13→19:52)
[2019-07-13] MEDS: POLYETHYLENE GLYCOL 17 GM (MIRALAX) PACK PO SCH ×2 (09:13→19:52)
--- NOTE | 2019-07-13 09:44 | Occupational Ther Daily Note ---
OT Current Status-Daily Note Subjective Pt alert, lying in bed. Pt states that she feels better and was able to sleep last night. Pt agrees to therapy. No c/o pain. Mental Status/Objective Patient Orientation: Person, Place, Time, Situation Attachments: IV, Oxygen ADL-Treatment Pt agrees to shower. Supine to EOB, mod I with HOB elevated. Due to decreased activity tolerance, pt maneuvered w/c to bathroom instead of ambulating. Pt transferred into/out of shower with SBA using AD. Pt completed shower using AD for energy conservation, supervision. Pt then completed grooming and oral care. Pt able to complete upper body dressing and footwear by self after set up. Lower body dressing completed with CGA and multiple breaks due to decreased activity tolerance. Pt transferred to/from toilet with SBA using grabbars, assist to cleanse thoroughly after BM. Pt able to reach to buttocks though is inefficient at this time. PT took over care of pt. All needs met in room. Therapy Code Descriptions/Definitions Functional Power Measure: 0=Not Assessed/NA 4=Minimal Assistance 1=Total Assistance 5=Supervision or Setup 2=Maximal Assistance 6=Modified Power 3=Moderate Assistance 7=Complete IndependenceSCALE: Activities may be completed with or without assistive devices. 3-Jshemusiev-qwqctzh completes the activity by him/herself with no assistance from a helper. 5-Set-up or Clean-up Assistance-helper sets up or cleans up; patient completes activity. [place] assists only prior to or following the activity. 4-Supervision or Touching Assistance-helper provides verbal cues and/or touching/steadying and/or contact guard assistance as patient completes activity. Assistance may be provided throughout the activity or intermittently. 3-Partial/Moderate Assistance-helper does LESS THAN HALF the effort. [place] lifts, holds or supports trunk or limbs, but provides less than half the effort. 2-Substantial/Maximal Assistance-helper does MORE THAN HALF the effort. [place] lifts or holds trunk or limbs and provides more than half the effort. 4-Jtjuqhhxh-mhidhq does ALL the effort. Patient does none of the effort to complete the activity. Or, the assistance of 2 or more helpers is required for the patient to complete the activity. If activity was not attempted, code reason: 7-Patient Refused. 9-Not Applicable-not attempted and the patient did not perform the activity before the current illness, exacerbation or injury. 10-Not Attempted due to Environmental Limitations-(lack of equipment, weather restraints, etc.). 88-Not Attempted due to Medical Conditions or Safety Concerns. Oral Hygiene (QC): 6 Shower/Bathe Self (QC): 4 (Supervision) Upper Body Dressing (QC): 5 Lower Body Dressing (QC): 4 (CGA) On/Off Footwear: 5 Toileting Hygiene (QC): 3 Toilet Transfer (QC): 4 OT Short Term Goals Short Term Goals Time Frame: Jul 12, 2019 Upper body dressin Lower body dressin Putting on/taking off footwear: 3 OT Longterm Goals Longterm Goals Time Frame: Jul 19, 2019 Eating (QC): 5 Oral Hygiene (QC): 6 Toileting Hygiene (QC): 6 Shower/Bathe Self (QC): 3 Upper Body Dressing (QC): 6 Lower Body Dressing (QC): 3 On/Off Footwear (QC): 6 Additional Goals: 1-Demonstrate ADL Tasks, 2-Verbalize Understanding, 3-ImproveStrength/Arabella 1=Demonstrate adherence to instructed precautions during ADL tasks. 2=Patient will verbalize/demonstrate understanding of assistive devices/modifications for ADL. 3=Patient will improve strength/tolerance for activity to enable patient to perform ADL's. OT Education/Plan Problem List/Assessment Assessment: Decreased Activ Tolerance, Impaired Self-Care Skills Discharge Recommendations Plan/Recommendations: Continue POC Treatment Plan/Plan of Care Patient would benefit from OT for education, treatment and training to promote independence in ADL's, mobility, safety and/or upper extremity function for ADL's. Plan of Care: ADL Retraining, Caregiver Training Treatment Duration: Jul 19, 2019 Frequency: 2 times per month Estimated Hrs Per Day: 1.5 hours per day Agreement: Yes Rehab Potential: Fair Time/GCodes Start Time: 08:00 Stop Time: 09:15 Total Time Billed (hr/min): 75 Billed Treatment Time 1 visit-ADL 5 (75 min) MALIHA CATES Jul 13, 2019 09:44
--- NOTE | 2019-07-13 10:36 | Physical Therapy Daily Note ---
PT Daily Note-Current Subjective Pt. agrees to Rx, feels she is doing better, hates her cough, anxious to titrate off O2. Pain Location: No Pain Reported Mental Status Patient Orientation: Normal For Age Attachments: Oxygen (2L) pt. wanted to titrate off O2 duting Rx if possible but nursing advises that Dr is not ready as pt still positive for pneumonia Transfers SCALE: Activities may be completed with or without assistive devices. 4-Niczfirkrh-fjrutmq completes the activity by him/herself with no assistance from a helper. 5-Set-up or Clean-up Assistance-helper sets up or cleans up; patient completes activity. [place] assists only prior to or following the activity. 4-Supervision or Touching Assistance-helper provides verbal cues and/or touching/steadying and/or contact guard assistance as patient completes activity. Assistance may be provided throughout the activity or intermittently. 3-Partial/Moderate Assistance-helper does LESS THAN HALF the effort. [place] lifts, holds or supports trunk or limbs, but provides less than half the effort. 2-Substantial/Maximal Assistance-helper does MORE THAN HALF the effort. [place] lifts or holds trunk or limbs and provides more than half the effort. 1-Wfhjmbgev-lknjnb does ALL the effort. Patient does none of the effort to complete the activity. Or, the assistance of 2 or more helpers is required for the patient to complete the activity. If activity was not attempted, code reason: 7-Patient Refused. 9-Not Applicable-not attempted and the patient did not perform the activity before the current illness, exacerbation or injury. 10-Not Attempted due to Environmental Limitations-(lack of equipment, weather restraints, etc.). 88-Not Attempted due to Medical Conditions or Safety Concerns. Roll Left & Right (QC): 6 Sit to Lying (QC): 6 Lying to Sitting/Side of Bed(Q: 6 Sit to Stand (QC): 6 Chair/Jvk-en-Ghyuf Xfer(QC): 6 Toilet Transfer (QC): 6 pt. uses rails and chair arms for all TRFs Weight Bearing Full Weight Bearing Full Weight Bearing Gait Training Does the Patient Walk?: Yes Walk 10 feet (QC): 5 Walk 50 ft with 2 Turns(QC): 5 Gait Persons Needed: 1 Gait Assistive Device: FWW pt. needs assist for portable O2 and w/c to follow. Pt. with O2 sats steady 95% with activity at 2L. Pt. gaining in distance with safe habits and pattern noted Wheelchair Training Does the Pt Use a Wheelchair?: Yes Wheel 50 ft with 2 turns (QC): 6 Type of Wheelchair: Manual Exercises Seated Therapy Exercises: Ankle pumps, Sit to stand, Long arc quads, Hip flexion, Hip abd/add Seated Reps: 15 NuStep Minutes: 10 NuStep Workload: 2 Treatments pt. does not like supine exercises, poor tolerance secondary to breathing in supine flat position makes breathing more difficult at times, so nustep and seated exercise were done as well as leg presses on nustep x 15 Assessment increased gait distance and better oxygenation during activity PT Short Term Goals Short Term Goals Time Frame: Jul 12, 2019 Roll Left & Right: 6 Sit to lyin Lying to sitting on side of be: 6 Sit to stand: 4 Chair/ihc-pl-dayhi transfer: 4 Toilet transfer: 4 Walk 10 feet: 4 Walk 50 feet with two turns: 4 PT Group Home Goals Group Home Goals PT Group Home Goals Time Frame: Jul 26, 2019 Roll Left & Right (QC): 6 Sit to Lying (QC): 6 Lying-Sitting on Side/Bed(QC): 6 Sit to Stand (QC): 6 Chair/Qiz-dx-Vwyxn Xfer(QC): 6 Toilet Transfer (QC): 6 Car Transfer (QC): 6 Walk 10 feet (QC): 6 Walk 50ft with 2 Turns (QC): 6 Walk 150 ft (QC): 6 Walking 10ft on Uneven Surface: 6 1 Step (curb) (QC): 4 4 Steps (QC): 4 PT Plan Treatment/Plan Treatment Plan: Continue Plan of Care Treatment Plan: Bed Mobility, Concurrent Therapy, Education, Functional Activity Arabella, Functional Strength, Group Therapy, Gait, Safety, Therapeutic Exercise, Transfers Treatment Duration: Jul 26, 2019 Frequency: At least 5 of 7 days/Wk (IRF) Estimated Hrs Per Day: 1.5 hours per day Patient and/or Family Agrees t: Yes Safety Risks/Education Patient Education: Gait Training, Transfer Techniques, Correct Positioning, W/C Management, Disease Process, Safety Issues Teaching Recipient: Patient Teaching Methods: Demonstration, Discussion Response to Teaching: Verbalize Understanding, Return Demonstration, Reinforcement Needed Time/GCodes Time In: 915 Time Out: 1030 Total Billed Treatment Time: 75 Total Billed Treatment 1,GT30m,EX25m,FA20m KEVAN SOUZA EXECUTIVE CANDIDATE DEVELOPER Jul 13, 2019 10:36
--- NOTE | 2019-07-13 11:09 | Speech Therapy Daily Note ---
Speech Daily Progress Note Subjective Date Seen by Provider: Jul 13, 2019 Time Seen by Provider: 10:30 Patient was alert, pleasant, and cooperative for all therapy tasks. Patient had her upper dentures in for the first time since her stay at the [facility] and reports that she hadn't been able to wear them due to her thrush. Patient reports that her thrush is improving. Objective Patient completed completed safe and effective swallow during oral intake with 90% accuracy. Patient alternated liquids with solids as a compensatory strategy with minimal cues. Assessment Assessment Current Status: Excellent Progress Treatment Plan Continue Plan of Care Speech Short Term Goals Short Term Goals Short Term Goals 1. Patient will tolerate least restrictive diet with s/s of aspiration at 90%. 2. Patient will utilize compensatory strategies as trained at 90% with minimal cues. Speech Half-Way Goals Hvac R Instructor Goals Patient will maintain adequate nutrition/hydration via safe and effective swallow function. Speech-Plan Patient/Family Goals Patient/Family Goals: Patient reports that she would like to return home to prior level of independence and mobility. Treatment Plan Speech Therapy Treatment Plan: Continue Plan of Care Treatment Duration: Jul 15, 2019 Frequency: 5 times per week Estimated Hrs Per Day: .5 hour per day Rehab Potential: Fair Barriers to Learning: Current medical status Pt/Family Agrees to Plan: Yes Safety Risks/Education Teaching Recipient: Patient Teaching Methods: Demonstration, Discussion Response to Teaching: Verbalize Understanding Education Topics Provided: Patient understood continued utilization of compensatory strategies for all consistencies of food during mealtime. Time Speech Therapy Time In: 10:30 Speech Therapy Time Out: 11:00 Total Billed Time: 30 Billed Treatment Time 1ROSSANA CECE Hudson Jul 13, 2019 11:09
--- NOTE | 2019-07-13 13:24 | NUR ---
"RD ASSESSMENT PMHx: COPD; CAD; hypercholesterolemia; HTN; CA(skin); DM PT INTERACTION: Pt was awake and pleasant during nutrition follow-up. Pt states she has been eating well since last assessment. Note avg PO intake of 77% x4d, per chart review. Pt states no issues with n/v/c/d since last assessment. Note last BM was 07/13 and pt currently on bowel regimen of colace BID; miralax BID; and senna BID, per chart review. ABNORMAL NUTRITION-RELATED LAB VALUES LOW: Na 134; Pro 5.4 HIGH: Est. kcal needs: 5252-9034 kcal | 15-18 kcal/kg Est. Pro needs: 83-104 g Pro | 0.8-1.0 g Pro/kg PES STATEMENT: Given pt's PO intake, no nutrition diagnosis at this time (NO-1.1) INTERVENTION: Continue with current diet order of CHO 60g/m 3snack diet. Will continue to follow and reassess as pt needs and status change. MONITOR/EVALUATE: PO Intake; Plan of Care; Hydration Status; Weight Status; Lab Values Dana Archuleta, MS, RD, LD"
[2019-07-13] MEDS: guaiFENesin/CODEINE (ROBITUSSIN AC) 10ML UDC PO PRN ×2 (13:37→21:00)
[2019-07-13] MEDS: HYDROCHLOROTHIAZIDE 25 MG (HCTZ) TAB PO SCH (17:03)
[2019-07-13 17:35] VITALS: BP 115/68
[2019-07-13] MEDS: ENOXAPARIN 40 MG/0.4 ML (LOVENOX) SYR SQ SCH (18:19)
[2019-07-13] MEDS: diphenhydrAMINE 25 MG TAB (BENADRYL) PO SCH (20:59)
[2019-07-13] MEDS: ATENOLOL 25 MG (TENORMIN) TAB PO SCH (21:00)
[2019-07-13] MEDS: ROSUVASTATIN 10 MG (CRESTOR) TABLET PO SCH (21:00)
[2019-07-13] MEDS: HYDROcodone/APAP 7.5 MG/325 MG (LORTAB, LORCET PLUS) TABLET PO PRN (21:01)
[2019-07-13] MEDS: PATCH REMOVAL TP SCH (21:03)
[2019-07-14] MEDS: NYSTATIN ORAL SUSP 5 ML UDC PO SCH ×4 (00:43→17:35)
[2019-07-14] MEDS: RT-ALBUTEROL/IPRATROPIUM 3 ML (DUONEB) VIAL INH SCH ×4 (01:20→15:23)
[2019-07-14 05:28] VITALS: BP 116/68
[2019-07-14] MEDS: inSUlin ASPART (NovoLOG) 1 UNIT/0.01 ML (CHARGE PER UNIT) SC SCH ×4 (05:35→19:52)
[2019-07-14 06:13] LABS: HEMOGLOBIN 12.7 G/DL (11.5-16.0); MEAN PLATELET VOLUME 10.3 FL (7.4-10.4); RED CELL DISTRIBUTION WIDTH 12.3 % (10.0-14.5); WHITE BLOOD COUNT 5.5 10^3/uL (4.3-11.0)
[2019-07-14] MEDS: predniSONE 20 MG TAB PO SCH (06:21)
[2019-07-14] MEDS: KCL 10 MEQ TAB (MICRO K) PO SCH (06:21)
[2019-07-14] MEDS: CATHETER FLUSH 10 ML SYR IV SCH ×3 (06:21→21:33)
[2019-07-14 08:00] VITALS: BP 109/47
--- NOTE | 2019-07-14 08:55 | PM&R Progress Note ---
Subjective HPI/CC On Admission Date Seen by Provider: Jul 14, 2019 Time Seen by Provider: 09:00 Subjective/Events-last exam Home oxygen evaluation for Thursday since she doesn't have it at home Severe COPD it surprises me she doesn't already have home O2 Overall feels like she is much better and the cough is much better Progressing well Conferred with RN Reviewed therapy notes Checked meds and labs Review of Systems Pulmonary: Dyspnea, Cough Objective Exam Vital Signs Vital Signs Date Time Temp Pulse Resp B/P (MAP) Pulse Ox O2 Delivery O2 Flow Rate FiO2 07/14/19 20:45 Nasal Cannula 2.00 07/14/19 18:03 37.0 61 18 122/74 (90) 93 07/14/19 15:26 28 Capillary Refill : Less Than 3 SecondsLess Than 3 Seconds General Appearance: No Apparent Distress, WD/WN, Chronically ill HEENT: PERRL/EOMI, Normal ENT Inspection, Pharynx Normal Neck: Full Range of Motion, Normal Inspection, Non Tender, Supple, Carotid Bruit Respiratory: Chest Non Tender, No Accessory Muscle Use, No Respiratory D istress, Crackles, Decreased Breath Sounds, Wheezing Cardiovascular: Regular Rate, Rhythm, No Edema, No Gallop, No JVD, No Murmur, Normal Peripheral Pulses Gastrointestinal: Normal Bowel Sounds, No Organomegaly, No Pulsatile Mass, Non Tender, Soft Back: Normal Inspection, No CVA Tenderness, No Vertebral Tenderness Extremity: Normal Capillary Refill, Normal Inspection, Normal Range of Motion, Non Tender, No Calf Tenderness, No Pedal Edema Neurologic/Psychiatric: Alert, Oriented x3, No Motor/Sensory Deficits, Normal Mood/Affect, ios architect II-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 FIM Transfers Therapy Code Descriptions/Definitions Functional [place] Measure: 0=Not Assessed/NA 4=Minimal Assistance 1=Total Assistance 5=Supervision or Setup 2=Maximal Assistance 6=Modified [place] 3=Moderate Assistance 7=Complete IndependenceSCALE: Activities may be completed with or without assistive devices. 9-Vijdfcixem-krhynjh completes the activity by him/herself with no assistance from a helper. 5-Set-up or Clean-up Assistance-helper sets up or cleans up; patient completes activity. [place] assists only prior to or following the activity. 4-Supervision or Touching Assistance-helper provides verbal cues and/or touching/steadying and/or contact guard assistance as patient completes activity. Assistance may be provided throughout the activity or intermittently. 3-Partial/Moderate Assistance-helper does LESS THAN HALF the effort. [place] lifts, holds or supports trunk or limbs, but provides less than half the effort. 2-Substantial/Maximal Assistance-helper does MORE THAN HALF the effort. [place] lifts or holds trunk or limbs and provides more than half the effort. 5-Fdxcobpbd-dwdefx does ALL the effort. Patient does none of the effort to complete the activity. Or, the assistance of 2 or more helpers is required for the patient to complete the activity. If activity was not attempted, code reason: 7-Patient Refused. 9-Not Applicable-not attempted and the patient did not perform the activity before the current illness, exacerbation or injury. 10-Not Attempted due to Environmental Limitations-(lack of equipment, weather restraints, etc.). 88-Not Attempted due to Medical Conditions or Safety Concerns. Roll Left to Right (QC): 6 Sit to Lying (QC): 6 Sit to Stand (QC): 6 Chair/Khd-hr-Kznqr Xfer(QC): 6 Gait Training Does the Patient Walk?: Yes Distance: 15' Walk 10 feet (QC): 5 Walk 50 ft with 2 Turns(QC): 5 Walk 150 ft (QC): 88 Walking 10ft/uneven surface-QC: 88 Gait Persons Needed: 1 Gait Assistive Device: FWW Wheelchair Training Does the Pt Use a Wheelchair?: Yes Distance: 150' Wheel 50 ft with 2 turns (QC): 6 Wheel 150 ft (QC): 5 Type of Wheelchair: Manual Stair Training #of Steps: 88 1 Step (curb) (QC): 88 4 Steps (QC): 88 12 Steps (QC): 88 Balance Picking up an Object (QC): 88 ADL-Treatment Eating (QC): 6 Oral Hygiene (QC): 6 Shower/Bathe Self (QC): 4 (Supervision) Upper Body Dressing (QC): 5 Lower Body Dressing (QC): 4 (CGA) On/Off Footwear (QC): 5 Toileting Hygiene (QC): 3 Toilet Transfer (QC): 4 Assessment/Plan Assessment and Plan Assess & Plan/Chief Complaint Assessment: PNA with debility Volume overload responded to Lasix DM HTN CAD h/o UTI Chronic back pain Constipation Plan: Monitor BP and BS Home meds Pain meds IRF protocol Nebs ICS Much improved air movement now but still severe COPD IV Lasix completed Potassium supplement (1) Debility (2) IDDM (insulin dependent diabetes mellitus) Status: Acute (3) CAD (coronary artery disease) Status: Chronic (4) Vertigo Status: Acute (5) HTN (hypertension) Status: Acute (1) Right lower lobe pneumonia Status: Acute (2) Hypoxia Status: Acute (3) Generalized weakness Status: Acute (4) COPD exacerbation Status: Acute (5) Debility (6) HTN (hypertension) Status: Acute (7) CAD (coronary artery disease) Status: Chronic (8) IDDM (insulin dependent diabetes mellitus) Status: Acute CHELY ESPARZA DO Jul 14, 2019 08:55
[2019-07-14] MEDS: SPIRONOLACTONE 25 MG (ALDACTONE) TAB PO SCH (08:59)
[2019-07-14] MEDS: amLODIPine 5 MG (NORVASC) TAB PO SCH (08:59)
[2019-07-14] MEDS: ASPIRIN E.C. 81 MG (ECOTRIN) TAB PO SCH (08:59)
[2019-07-14] MEDS: RANOLAZINE ER 500 MG TAB (RANEXA) PO SCH ×2 (08:59→20:13)
[2019-07-14] MEDS: LOSARTAN 25 MG (COZAAR) TAB PO SCH (08:59)
[2019-07-14] MEDS: VITAMIN D3 1,000 UNITS (CHOLECALCIFEROL) TABLET PO SCH (08:59)
[2019-07-14] MEDS: LIDOCAINE 4% (SALONPAS) PATCH TOP SCH (08:59)
[2019-07-14] MEDS: PANTOPRAZOLE 40 MG (PROTONIX) TAB PO SCH (08:59)
[2019-07-14] MEDS: guaiFENesin/CODEINE (ROBITUSSIN AC) 10ML UDC PO PRN ×3 (09:00→21:33)
[2019-07-14] MEDS: DOCUSATE SODIUM 100 MG (COLACE) CAP PO SCH ×2 (09:14→20:14)
[2019-07-14] MEDS: SENNA W/DOCUSATE (SENOKOT S) TABLET PO SCH ×2 (09:14→20:14)
[2019-07-14] MEDS: POLYETHYLENE GLYCOL 17 GM (MIRALAX) PACK PO SCH ×2 (09:14→20:14)
--- NOTE | 2019-07-14 09:14 | Occupational Ther Daily Note ---
OT Current Status-Daily Note Subjective Pt alert, lying in bed. Pt agrees to therapy. Pt c/o pain, nrsg brought medication. Mental Status/Objective Patient Orientation: Person, Place, Time, Situation Attachments: IV, Oxygen (2L) ADL-Treatment Pt declines shower, agrees to sponge bath. With HOB raised, pt able to go from supine to EOB. Pt transferred from EOB to w/c with SBA. Ambulated using FWW to bathroom. Transferred to toilet mod I. SBA in standing while pt manipulated clothing. Then pt attempted to cleanse self after BM, assist to thoroughly cleanse. Pt able to reach front area and bathe upper body and LE's. Pt cleansed jose alejandro area/buttocks in standing, SBA due to decreased activity tolerance. Pt transferred to/from toilet using FWW and BSC, mod I. Pt completed oral care and grooming sitting at sink. Pt required increased time to complete all tasks due to decreased activity tolerance requiring multiple recovery breaks, increased productive cough. Pt donned/doffed gown by self after set up. Pt doffed briefs by self after set up and donned/doffed sock by self. After therapy, pt sitting in recliner with call light/phone in reach. LICENSED EMBALMER SUPERVISOR took over care. All needs met in room. Therapy Code Descriptions/Definitions Functional [place] Measure: 0=Not Assessed/NA 4=Minimal Assistance 1=Total Assistance 5=Supervision or Setup 2=Maximal Assistance 6=Modified [place] 3=Moderate Assistance 7=Complete IndependenceSCALE: Activities may be completed with or without assistive devices. 7-Sdknfrarop-qkpsgfz completes the activity by him/herself with no assistance from a helper. 5-Set-up or Clean-up Assistance-helper sets up or cleans up; patient completes activity. [place] assists only prior to or following the activity. 4-Supervision or Touching Assistance-helper provides verbal cues and/or to uching/steadying and/or contact guard assistance as patient completes activity. Assistance may be provided throughout the activity or intermittently. 3-Partial/Moderate Assistance-helper does LESS THAN HALF the effort. [place] lifts, holds or supports trunk or limbs, but provides less than half the effort. 2-Substantial/Maximal Assistance-helper does MORE THAN HALF the effort. [place] lifts or holds trunk or limbs and provides more than half the effort. 1-Ibapnwymj-uqjayj does ALL the effort. Patient does none of the effort to complete the activity. Or, the assistance of 2 or more helpers is required for the patient to complete the activity. If activity was not attempted, code reason: 7-Patient Refused. 9-Not Applicable-not attempted and the patient did not perform the activity before the current illness, exacerbation or injury. 10-Not Attempted due to Environmental Limitations-(lack of equipment, weather restraints, etc.). 88-Not Attempted due to Medical Conditions or Safety Concerns. Oral Hygiene (QC): 6 Shower/Bathe Self (QC): 5 Upper Body Dressing (QC): 5 Lower Body Dressing (QC): 4 On/Off Footwear: 5 Toileting Hygiene (QC): 3 Toilet Transfer (QC): 6 OT Short Term Goals Short Term Goals Time Frame: Jul 12, 2019 Upper body dressin Lower body dressin Putting on/taking off footwear: 3 OT Fulfillment Specialist Goals Fulfillment Specialist Goals Time Frame: Jul 19, 2019 Eating (QC): 5 Oral Hygiene (QC): 6 Toileting Hygiene (QC): 6 Shower/Bathe Self (QC): 3 Upper Body Dressing (QC): 6 Lower Body Dressing (QC): 3 On/Off Footwear (QC): 6 Additional Goals: 1-Demonstrate ADL Tasks, 2-Verbalize Understanding, 3- ImproveStrength/[place]ella 1=Demonstrate adherence to instructed precautions during ADL tasks. 2=Patient will verbalize/demonstrate understanding of assistive devices/modifications for ADL. 3=Patient will improve strength/tolerance for activity to enable patient to perform ADL's. OT Education/Plan Problem List/Assessment Assessment: Decreased Activ Tolerance, Impaired Self-Care Skills Discharge Recommendations Plan/Recommendations: Continue POC Treatment Plan/Plan of Care Patient would benefit from OT for education, treatment and training to promote independence in ADL's, mobility, safety and/or upper extremity function for ADL's. Plan of Care: ADL Retraining, Caregiver Training Treatment Duration: Jul 19, 2019 Frequency: 2 times per month Estimated Hrs Per Day: 1.5 hours per day Agreement: Yes Rehab Potential: Fair Time/GCodes Start Time: 08:00 Stop Time: 09:15 Total Time Billed (hr/min): 75 Billed Treatment Time 1 visit-ADL 5 (75 min) MALIHA CATES Jul 14, 2019 09:14
--- NOTE | 2019-07-14 10:02 | Speech Therapy Daily Note ---
Speech Daily Progress Note Subjective Date Seen by Provider: Jul 14, 2019 Time Seen by Provider: 09:15 Patient was upbeat, alert, and cooperative for all therapy tasks. Patient reports that she is feeling much better today. Patients vocal quality was also noted to be clearer today. Objective Patient completed compensatory strategies pertaining to alternating liquids and solids and increasing of fluids with 90% accuracy. Assessment Assessment Current Status: Good Progress Treatment Plan Continue Plan of Care Speech Short Term Goals Short Term Goals Short Term Goals 1. Patient will tolerate least restrictive diet with s/s of aspiration at 90%. 2. Patient will utilize compensatory strategies as trained at 90% with minimal cues. Speech Hospice Community Liaison Goals Hospice Community Liaison Goals Patient will maintain adequate nutrition/hydration via safe and effective swallow function. Speech-Plan Patient/Family Goals Patient/Family Goals: Patient reports that she is eager to return home to previous level of independence and mobility. Treatment Plan Speech Therapy Treatment Plan: Continue Plan of Care Treatment Duration: Jul 18, 2019 Frequency: 5 times per week Estimated Hrs Per Day: .5 hour per day Rehab Potential: Fair Barriers to Learning: Current medical status Pt/Family Agrees to Plan: Yes Safety Risks/Education Teaching Recipient: Patient Teaching Methods: Demonstration Response to Teaching: Verbalize Understanding Education Topics Provided: Continuation of compensatory strategies during mealtime. Time Speech Therapy Time In: 09:15 Speech Therapy Time Out: 09:45 Total Billed Time: 30 Billed Treatment Time ROSSANA Lamb CECE [place] Jul 14, 2019 10:02
--- NOTE | 2019-07-14 10:30 | NUR ---
Pastoral care visit.
--- NOTE | 2019-07-14 12:05 | Physical Therapy Daily Note ---
PT Daily Note-Current Subjective Pt sitting in recliner visiting with friend upon arrival. Pt agrees to PT. Pain Location: No Pain Reported Mental Status Patient Orientation: Person, Place, Situation Attachments: Oxygen (2L) Transfers SCALE: Activities may be completed with or without assistive devices. 4-Ixobuhrkkb-mceahby completes the activity by him/herself with no assistance from a helper. 5-Set-up or Clean-up Assistance-helper sets up or cleans up; patient completes activity. [place] assists only prior to or following the activity. 4-Supervision or Touching Assistance-helper provides verbal cues and/or touching/steadying and/or contact guard assistance as patient completes activity. Assistance may be provided throughout the activity or intermittently. 3-Partial/Moderate Assistance-helper does LESS THAN HALF the effort. [place] lifts, holds or supports trunk or limbs, but provides less than half the effort. 2-Substantial/Maximal Assistance-helper does MORE THAN HALF the effort. [place] lifts or holds trunk or limbs and provides more than half the effort. 7-Cjczcwtrt-imnsdo does ALL the effort. Patient does none of the effort to complete the activity. Or, the assistance of 2 or more helpers is required for the patient to complete the activity. If activity was not attempted, code reason: 7-Patient Refused. 9-Not Applicable-not attempted and the patient did not perform the activity before the current illness, exacerbation or injury. 10-Not Attempted due to Environmental Limitations-(lack of equipment, weather restraints, etc.). 88-Not Attempted due to Medical Conditions or Safety Concerns. Sit to Stand (QC): 6 Weight Bearing Full Weight Bearing Full Weight Bearing Gait Training Does the Patient Walk?: Yes Distance: 55' x3 Walk 10 feet (QC): 4 Walk 50 ft with 2 Turns(QC): 4 Gait Persons Needed: 1 Gait Assistive Device: FWW Pt needs frequent RB and reports "jello legs" when fatigued. Wheelchair Training Does the Pt Use a Wheelchair?: Yes Wheel 50 ft with 2 turns (QC): 5 Wheel 150 ft (QC): 5 Type of Wheelchair: Manual Exercises NuStep Minutes: 12 NuStep Workload: 4 Treatments Pt transfers from recliner to standing. Pt uses restroom then ambulates in hallway with several RB. Pt uses NuStep before returning to room. Pt rests in recliner at end of Rx with all needs met, call light in hand. Assessment Current Status: Good Progress Pt still fatigues quickly and demonstrates SOA at times. Pt is improving though to get closer to baseline. PT Short Term Goals Short Term Goals Time Frame: Jul 12, 2019 Roll Left & Right: 6 Sit to lyin Lying to sitting on side of be: 6 Sit to stand: 4 Chair/fja-jr-vypxr transfer: 4 Toilet transfer: 4 Walk 10 feet: 4 Walk 50 feet with two turns: 4 PT Half-Way Goals Half-Way Goals PT Half-Way Goals Time Frame: Jul 26, 2019 Roll Left & Right (QC): 6 Sit to Lying (QC): 6 Lying-Sitting on Side/Bed(QC): 6 Sit to Stand (QC): 6 Chair/Evc-gl-Spjeq Xfer(QC): 6 Toilet Transfer (QC): 6 Car Transfer (QC): 6 Walk 10 feet (QC): 6 Walk 50ft with 2 Turns (QC): 6 Walk 150 ft (QC): 6 Walking 10ft on Uneven Surface: 6 1 Step (curb) (QC): 4 4 Steps (QC): 4 PT Plan Problem List Problem List: Activity Tolerance, Functional Strength, Safety, Balance, Gait Treatment/Plan Treatment Plan: Continue Plan of Care Treatment Plan: Bed Mobility, Concurrent Therapy, Education, Functional Activity Arabella, Functional Strength, Group Therapy, Gait, Safety, Therapeutic Exercise, Transfers Treatment Duration: Jul 26, 2019 Frequency: At least 5 of 7 days/Wk (IRF) Estimated Hrs Per Day: 1.5 hours per day Patient and/or Family Agrees t: Yes Safety Risks/Education Patient Education: Gait Training, Transfer Techniques, Correct Positioning, W/C Management, Safety Issues Teaching Recipient: Patient Teaching Methods: Discussion Response to Teaching: Verbalize Understanding Time/GCodes Time In: 1100 Time Out: 1145 Total Billed Treatment Time: 45 Total Billed Treatment 1, GT (20m), FA (10m) & EX (15m) GEOVANNA MENDOZA PTA Jul 14, 2019 12:05
--- NOTE | 2019-07-14 15:13 | Physical Therapy Daily Note ---
PT Daily Note-Current Subjective Pt sitting in recliner upon arrival. Pt reports needing to use restroom before transferring back to bed. Pain Location: No Pain Reported Mental Status Patient Orientation: Person, Place, Time, Situation Attachments: Oxygen (2L) Transfers SCALE: Activities may be completed with or without assistive devices. 8-Xkcvhelhcw-zcdvkst completes the activity by him/herself with no assistance from a helper. 5-Set-up or Clean-up Assistance-helper sets up or cleans up; patient completes activity. [place] assists only prior to or following the activity. 4-Supervision or Touching Assistance-helper provides verbal cues and/or touching/steadying and/or contact guard assistance as patient completes activity. Assistance may be provided throughout the activity or intermittently. 3-Partial/Moderate Assistance-helper does LESS THAN HALF the effort. [place] lifts, holds or supports trunk or limbs, but provides less than half the effort. 2-Substantial/Maximal Assistance-helper does MORE THAN HALF the effort. [place] lifts or holds trunk or limbs and provides more than half the effort. 4-Eqaweakca-suxkjy does ALL the effort. Patient does none of the effort to complete the activity. Or, the assistance of 2 or more helpers is required for the patient to complete the activity. If activity was not attempted, code reason: 7-Patient Refused. 9-Not Applicable-not attempted and the patient did not perform the activity before the current illness, exacerbation or injury. 10-Not Attempted due to Environmental Limitations-(lack of equipment, weather restraints, etc.). 88-Not Attempted due to Medical Conditions or Safety Concerns. Roll Left & Right (QC): 5 Sit to Lying (QC): 5 Sit to Stand (QC): 6 Toilet Transfer (QC): 5 Weight Bearing Full Weight Bearing Full Weight Bearing Gait Training Does the Patient Walk?: Yes Distance: 15' x2 Walk 10 feet (QC): 5 Gait Persons Needed: 1 Gait Assistive Device: FWW Treatments Pt transfers from recliner to standing and ambulates to restroom. After finishing, pt returns to EOB then transfers to bed. STATISTICS MANAGER assists positioning. Pt resting at end of Rx with all needs met, call light in hand. Assessment Current Status: Good Progress Pt is fatigued during afternoon Rx. Pt moves slower. PT Short Term Goals Short Term Goals Time Frame: Jul 12, 2019 Roll Left & Right: 6 Sit to lyin Lying to sitting on side of be: 6 Sit to stand: 4 Chair/zmf-ks-zbasz transfer: 4 Toilet transfer: 4 Walk 10 feet: 4 Walk 50 feet with two turns: 4 PT Idea Man Goals Usp Goals PT Idea Man Goals Time Frame: Jul 26, 2019 Roll Left & Right (QC): 6 Sit to Lying (QC): 6 Lying-Sitting on Side/Bed(QC): 6 Sit to Stand (QC): 6 Chair/Kdb-zk-Pptdh Xfer(QC): 6 Toilet Transfer (QC): 6 Car Transfer (QC): 6 Walk 10 feet (QC): 6 Walk 50ft with 2 Turns (QC): 6 Walk 150 ft (QC): 6 Walking 10ft on Uneven Surface: 6 1 Step (curb) (QC): 4 4 Steps (QC): 4 PT Plan Problem List Problem List: Activity Tolerance, Functional Strength Treatment/Plan Treatment Plan: Continue Plan of Care Treatment Plan: Bed Mobility, Concurrent Therapy, Education, Functional Activity Arabella, Functional Strength, Group Therapy, Gait, Safety, Therapeutic Exercise, Transfers Treatment Duration: Jul 26, 2019 Frequency: At least 5 of 7 days/Wk (IRF) Estimated Hrs Per Day: 1.5 hours per day Patient and/or Family Agrees t: Yes Safety Risks/Education Patient Education: Gait Training, Transfer Techniques, Correct Positioning, Safety Issues Teaching Recipient: Patient Teaching Methods: Discussion Response to Teaching: Verbalize Understanding Time/GCodes Time In: 1400 Time Out: 1430 Total Billed Treatment Time: 30 Total Billed Treatment 1, FA x2 (30m) GEOVANNA MENDOZA PTA Jul 14, 2019 15:13
[2019-07-14 15:26] VITALS: BP 116/68
[2019-07-14] MEDS: HYDROCHLOROTHIAZIDE 25 MG (HCTZ) TAB PO SCH (16:05)
[2019-07-14] MEDS: ENOXAPARIN 40 MG/0.4 ML (LOVENOX) SYR SQ SCH (17:37)
[2019-07-14 18:03] VITALS: BP 122/74
[2019-07-14] MEDS: diphenhydrAMINE 25 MG TAB (BENADRYL) PO SCH (20:13)
[2019-07-14] MEDS: ROSUVASTATIN 10 MG (CRESTOR) TABLET PO SCH (20:13)
[2019-07-14] MEDS: ATENOLOL 25 MG (TENORMIN) TAB PO SCH (20:13)
[2019-07-14] MEDS: PATCH REMOVAL TP SCH (21:25)
[2019-07-14] MEDS: HYDROcodone/APAP 7.5 MG/325 MG (LORTAB, LORCET PLUS) TABLET PO PRN (21:33)
[2019-07-15] MEDS: NYSTATIN ORAL SUSP 5 ML UDC PO SCH ×5 (00:22→23:08)
[2019-07-15] MEDS: CATHETER FLUSH 10 ML SYR IV SCH ×3 (06:17→21:19)
[2019-07-15] MEDS: KCL 10 MEQ TAB (MICRO K) PO SCH (06:17)
[2019-07-15] MEDS: predniSONE 20 MG TAB PO SCH (06:17)
[2019-07-15] MEDS: inSUlin ASPART (NovoLOG) 1 UNIT/0.01 ML (CHARGE PER UNIT) SC SCH ×4 (06:18→21:17)
[2019-07-15 06:38] VITALS: BP 121/66
--- NOTE | 2019-07-15 07:57 | Occupational Ther Daily Note ---
OT Current Status-Daily Note Subjective Pt alert, sitting up in bed. No c/o pain. Pt states she is feeling much better today and today is [birth year] birthday. Pt agrees to therapy, but wants her cough medicine before she moves which makes her cough worse. Mental Status/Objective Patient Orientation: Person, Place, Time, Situation Attachments: Oxygen (2L) ADL-Treatment Pt declined shower, requested sponge bath. Sitting at sink, pt able to complete own sponge bath. Pt donned/doffed upper and lower body clothing by self after set up. Pt completed own oral care and grooming at sink. Pt transferred to toilet from w/c using grabbars and BSC, mod I. SBA to cleanse self after BM and manipulate clothing. Pt takes increased time to complete all tasks due to decreased activity tolerance and multiple recovery breaks throughout session. After therapy, pt sitting in recliner with feet elevated. Call light/phone in reach. All needs met in room. Therapy Code Descriptions/Definitions Functional [place] Measure: 0=Not Assessed/NA 4=Minimal Assistance 1=Total Assistance 5=Supervision or Setup 2=Maximal Assistance 6=Modified [place] 3=Moderate Assistance 7=Complete IndependenceSCALE: Activities may be completed with or without assistive devices. 1-Xsftpnvpjq-cfpcwde completes the activity by him/herself with no assistance from a helper. 5-Set-up or Clean-up Assistance-helper sets up or cleans up; patient completes activity. [place] assists only prior to or following the activity. 4-Supervision or Touching Assistance-helper provides verbal cues and/or touc clark/steadying and/or contact guard assistance as patient completes activity. Assistance may be provided throughout the activity or intermittently. 3-Partial/Moderate Assistance-helper does LESS THAN HALF the effort. [place] lifts, holds or supports trunk or limbs, but provides less than half the effort. 2-Substantial/Maximal Assistance-helper does MORE THAN HALF the effort. [place] lifts or holds trunk or limbs and provides more than half the effort. 7-Ahojjwwce-duyusg does ALL the effort. Patient does none of the effort to complete the activity. Or, the assistance of 2 or more helpers is required for the patient to complete the activity. If activity was not attempted, code reason: 7-Patient Refused. 9-Not Applicable-not attempted and the patient did not perform the activity before the current illness, exacerbation or injury. 10-Not Attempted due to Environmental Limitations-(lack of equipment, weather restraints, etc.). 88-Not Attempted due to Medical Conditions or Safety Concerns. Eating (QC): 6 (Pt able to set own self up and use regular utensils to eat.) Oral Hygiene (QC): 6 Shower/Bathe Self (QC): 6 Upper Body Dressing (QC): 5 Lower Body Dressing (QC): 5 On/Off Footwear: 6 Toileting Hygiene (QC): 4 Toilet Transfer (QC): 6 OT Short Term Goals Short Term Goals Time Frame: Jul 12, 2019 Upper body dressin Lower body dressin Putting on/taking off footwear: 3 OT Sleeping Car [place] Goals Skilled Nursing Goals Time Frame: Jul 19, 2019 Eating (QC): 5 Oral Hygiene (QC): 6 Toileting Hygiene (QC): 6 Shower/Bathe Self (QC): 3 Upper Body Dressing (QC): 6 Lower Body Dressing (QC): 3 On/Off Footwear (QC): 6 Additional Goals: 1-Demonstrate ADL Tasks, 2-Verbalize Understanding, 3- ImproveStrength/[place] 1=Demonstrate adherence to instructed precautions during ADL tasks. 2=Patient will verbalize/demonstrate understanding of assistive devices/modifications for ADL. 3=Patient will improve strength/tolerance for activity to enable patient to perform ADL's. OT Education/Plan Problem List/Assessment Assessment: Decreased Activ Tolerance, Impaired Self-Care Skills Discharge Recommendations Plan/Recommendations: Continue POC Treatment Plan/Plan of Care Patient would benefit from OT for education, treatment and training to promote independence in ADL's, mobility, safety and/or upper extremity function for ADL's. Plan of Care: ADL Retraining, Caregiver Training Treatment Duration: Jul 19, 2019 Frequency: 2 times per month Estimated Hrs Per Day: 1.5 hours per day Agreement: Yes Rehab Potential: Fair Time/GCodes Start Time: 07:30 Stop Time: 09:00 Total Time Billed (hr/min): 90 Billed Treatment Time 1 visit-ADL 6 (90 min) MALIHA CATES Jul 15, 2019 07:57
[2019-07-15] MEDS: RANOLAZINE ER 500 MG TAB (RANEXA) PO SCH ×2 (08:09→21:19)
[2019-07-15] MEDS: VITAMIN D3 1,000 UNITS (CHOLECALCIFEROL) TABLET PO SCH (08:09)
[2019-07-15] MEDS: ASPIRIN E.C. 81 MG (ECOTRIN) TAB PO SCH (08:09)
[2019-07-15] MEDS: amLODIPine 5 MG (NORVASC) TAB PO SCH (08:09)
[2019-07-15] MEDS: POLYETHYLENE GLYCOL 17 GM (MIRALAX) PACK PO SCH ×2 (08:10→21:21)
[2019-07-15] MEDS: LOSARTAN 25 MG (COZAAR) TAB PO SCH (08:10)
[2019-07-15] MEDS: PANTOPRAZOLE 40 MG (PROTONIX) TAB PO SCH (08:10)
[2019-07-15] MEDS: DOCUSATE SODIUM 100 MG (COLACE) CAP PO SCH ×2 (08:10→21:21)
[2019-07-15] MEDS: SENNA W/DOCUSATE (SENOKOT S) TABLET PO SCH ×2 (08:10→21:21)
[2019-07-15] MEDS: SPIRONOLACTONE 25 MG (ALDACTONE) TAB PO SCH (08:10)
[2019-07-15] MEDS: LIDOCAINE 4% (SALONPAS) PATCH TOP SCH (08:10)
[2019-07-15] MEDS: guaiFENesin/CODEINE (ROBITUSSIN AC) 10ML UDC PO PRN ×2 (08:13→17:42)
[2019-07-15] MEDS: RT-ALBUTEROL/IPRATROPIUM 3 ML (DUONEB) VIAL INH SCH ×2 (09:35→19:38)
--- NOTE | 2019-07-15 09:47 | PM&R Progress Note ---
Subjective HPI/CC On Admission Date Seen by Provider: Jul 15, 2019 Time Seen by Provider: 12:00 Subjective/Events-last exam Rash on the abdomen was noted, Nystatin cream and powder initiated. Home O2 evaluation will be done on Thursday. No pain is reported. Progressing well Conferred with RN Reviewed therapy notes Checked meds and labs Review of Systems Pulmonary: Dyspnea, Cough rash under folds Objective Exam Vital Signs Vital Signs Date Time Temp Pulse Resp B/P (MAP) Pulse Ox O2 Delivery O2 Flow Rate FiO2 07/15/19 09:35 Nasal Cannula 2.00 07/15/19 06:38 36.4 56 18 121/66 (84) 91 07/14/19 15:26 28 Capillary Refill : Less Than 3 SecondsLess Than 3 Seconds General Appearance: No Apparent Distress, WD/WN, Chronically ill HEENT: PERRL/EOMI, Normal ENT Inspection, Pharynx Normal Neck: Full Range of Motion, Normal Inspection, Non Tender, Supple, Carotid Bruit Respiratory: Chest Non Tender, No Accessory Muscle Use, No Respiratory Distress, Crackles, Decreased Breath Sounds, Wheezing Cardiovascular: Regular Rate, Rhythm, No Edema, No Gallop, No JVD, No Murmur, Normal Peripheral Pulses Gastrointestinal: Normal Bowel Sounds, No Organomegaly, No Pulsatile Mass, Non Tender, Soft Back: Normal Inspection, No CVA Tenderness, No Vertebral Tenderness Extremity: Normal Capillary Refill, Normal Inspection, Normal Range of Motion, Non Tender, No Calf Tenderness, No Pedal Edema Neurologic/Psychiatric: Alert, Oriented x3, No Motor/Sensory Deficits, Normal Mood/Affect, ui ux engineer II-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 FIM Transfers Therapy Code Descriptions/Definitions Functional [place] Measure: 0=Not Assessed/NA 4=Minimal Assistance 1=Total Assistance 5=Supervision or Setup 2=Maximal Assistance 6=Modified [place] 3=Moderate Assistance 7=Complete IndependenceSCALE: Activities may be completed with or without assistive devices. 5-Odoghjkhas-lcomgbb completes the activity by him/herself with no assistance from a helper. 5-Set-up or Clean-up Assistance-helper sets up or cleans up; patient completes activity. [place] assists only prior to or following the activity. 4-Supervision or Touching Assistance-helper provides verbal cues and/or touching/steadying and/or contact guard assistance as patient completes activit y. Assistance may be provided throughout the activity or intermittently. 3-Partial/Moderate Assistance-helper does LESS THAN HALF the effort. [place] lifts, holds or supports trunk or limbs, but provides less than half the effort. 2-Substantial/Maximal Assistance-helper does MORE THAN HALF the effort. [place] lifts or holds trunk or limbs and provides more than half the effort. 3-Skneltcch-ptwwir does ALL the effort. Patient does none of the effort to complete the activity. Or, the assistance of 2 or more helpers is required for the patient to complete the activity. If activity was not attempted, code reason: 7-Patient Refused. 9-Not Applicable-not attempted and the patient did not perform the activity before the current illness, exacerbation or injury. 10-Not Attempted due to Environmental Limitations-(lack of equipment, weather restraints, etc.). 88-Not Attempted due to Medical Conditions or Safety Concerns. Roll Left to Right (QC): 5 Sit to Lying (QC): 5 Sit to Stand (QC): 6 Chair/Jlu-tm-Qklct Xfer(QC): 6 Gait Training Does the Patient Walk?: Yes Distance: 15' x2 Walk 10 feet (QC): 5 Walk 50 ft with 2 Turns(QC): 4 Walk 150 ft (QC): 88 Walking 10ft/uneven surface-QC: 88 Gait Persons Needed: 1 Gait Assistive Device: FWW Wheelchair Training Does the Pt Use a Wheelchair?: Yes Distance: 150' Wheel 50 ft with 2 turns (QC): 5 Wheel 150 ft (QC): 5 Type of Wheelchair: Manual Stair Training #of Steps: 88 1 Step (curb) (QC): 88 4 Steps (QC): 88 12 Steps (QC): 88 Balance Picking up an Object (QC): 88 ADL-Treatment Eating (QC): 6 (Pt able to set own self up and use regular utensils to eat.) Oral Hygiene (QC): 6 Shower/Bathe Self (QC): 6 Upper Body Dressing (QC): 5 Lower Body Dressing (QC): 5 On/Off Footwear (QC): 6 Toileting Hygiene (QC): 4 Toilet Transfer (QC): 6 Assessment/Plan Assessment and Plan Assess & Plan/Chief Complaint Assessment: PNA with debility Volume overload responded to Lasix DM HTN CAD h/o UTI Chronic back pain Constipation Yeast skin infection Plan: Monitor BP and BS Home meds Pain meds IRF protocol Nebs ICS Much improved air movement now but still severe COPD Nystatin cream and powder (1) Debility (2) IDDM (insulin dependent diabetes mellitus) Status: Acute (3) CAD (coronary artery disease) Status: Chronic (4) Vertigo Status: Acute (5) HTN (hypertension) Status: Acute (1) Right lower lobe pneumonia Status: Acute (2) Hypoxia Status: Acute (3) Generalized weakness Status: Acute (4) COPD exacerbation Status: Acute (5) Debility (6) HTN (hypertension) Status: Acute (7) CAD (coronary artery disease) Status: Chronic (8) IDDM (insulin dependent diabetes mellitus) Status: Acute CHELY ESPARZA DO Jul 15, 2019 09:47
--- NOTE | 2019-07-15 11:56 | Physical Therapy Daily Note ---
PT Daily Note-Current Subjective Pt. agrees to Rx. States she is planning DC to home on Mon. Pt states she is still not sure what the O2 situation will be. Today is pts birthday and she is receiving olivares and calls and cards and is very happy and grateful Pain Location: No Pain Reported Mental Status Patient Orientation: Normal For Age Attachments: Oxygen (2L) Transfers SCALE: Activities may be completed with or without assistive devices. 8-Azahlmdiau-hczmnnu completes the activity by him/herself with no assistance from a helper. 5-Set-up or Clean-up Assistance-helper sets up or cleans up; patient completes activity. [place] assists only prior to or following the activity. 4-Supervision or Touching Assistance-helper provides verbal cues and/or touching/steadying and/or contact guard assistance as patient completes activity. Assistance may be provided throughout the activity or intermittently. 3-Partial/Moderate Assistance-helper does LESS THAN HALF the effort. [place] lifts, holds or supports trunk or limbs, but provides less than half the effort. 2-Substantial/Maximal Assistance-helper does MORE THAN HALF the effort. [place] lifts or holds trunk or limbs and provides more than half the effort. 2-Yyeltiala-sozquq does ALL the effort. Patient does none of the effort to complete the activity. Or, the assistance of 2 or more helpers is required for the patient to complete the activity. If activity was not attempted, code reason: 7-Patient Refused. 9-Not Applicable-not attempted and the patient did not perform the activity before the current illness, exacerbation or injury. 10-Not Attempted due to Environmental Limitations-(lack of equipment, weather restraints, etc.). 88-Not Attempted due to Medical Conditions or Safety Concerns. Sit to Stand (QC): 6 Chair/Jwq-yv-Fnvgd Xfer(QC): 6 Weight Bearing Full Weight Bearing Full Weight Bearing Gait Training Does the Patient Walk?: Yes Walk 10 feet (QC): 5 Walk 50 ft with 2 Turns(QC): 5 Gait Persons Needed: 1 Gait Assistive Device: FWW 55ftx2, 40ft, 10ft, CGA to SBA , assist for portable O2 at 2L and w/c to f/u Wheelchair Training Does the Pt Use a Wheelchair?: Yes Wheel 50 ft with 2 turns (QC): 5 Type of Wheelchair: Manual Exercises Seated Therapy Exercises: Ankle pumps, Sit to stand, Long arc quads, Hip flexion, Hip abd/add Seated Reps: 15 NuStep Minutes: 12 NuStep Workload: 3 Treatments pt. is nto comfortable laying down for exercises and prefers the Nustep for safe upright exercises, leg presses also done on nustep x 15 Assessment Current Status: Good Progress pt. hoping to not need O2 at home or at least only utilize it at night. This was shared with resident by pt as pt. up with activity maintains O2 sats at 96% and above on room air but per nursing pt desats to high 80s in supine at rest or sleep PT Short Term Goals Short Term Goals Time Frame: Jul 12, 2019 Roll Left & Right: 6 Sit to lyin Lying to sitting on side of be: 6 Sit to stand: 4 Chair/xvp-re-qtmrv transfer: 4 Toilet transfer: 4 Walk 10 feet: 4 Walk 50 feet with two turns: 4 PT [employer] [employer] Experience Strategy Goals Fdc Goals PT [facility] [employer] Experience Strategy Goals Time Frame: Jul 26, 2019 Roll Left & Right (QC): 6 Sit to Lying (QC): 6 Lying-Sitting on Side/Bed(QC): 6 Sit to Stand (QC): 6 Chair/Qaa-qb-Zsbdp Xfer(QC): 6 Toilet Transfer (QC): 6 Car Transfer (QC): 6 Walk 10 feet (QC): 6 Walk 50ft with 2 Turns (QC): 6 Walk 150 ft (QC): 6 Walking 10ft on Uneven Surface: 6 1 Step (curb) (QC): 4 4 Steps (QC): 4 PT Plan Treatment/Plan Treatment Plan: Continue Plan of Care Treatment Plan: Bed Mobility, Concurrent Therapy, Education, Functional Activity [place], Functional Strength, Group Therapy, Gait, Safety, Therapeutic Exercise, Transfers Treatment Duration: Jul 26, 2019 Frequency: At least 5 of 7 days/Wk (IRF) Estimated Hrs Per Day: 1.5 hours per day Patient and/or Family Agrees t: Yes Safety Risks/Education Patient Education: Gait Training, Transfer Techniques, Correct Positioning, W/C Management, Disease Process, Safety Issues Teaching Recipient: Patient Teaching Methods: Demonstration, Discussion Response to Teaching: Verbalize Understanding, Return Demonstration Time/GCodes Time In: 1100 Time Out: 1145 Total Billed Treatment Time: 45 Total Billed Treatment 1,GT25m,EX20m KEVAN SOUZA AGRICULTURAL PILOT Jul 15, 2019 11:56
--- NOTE | 2019-07-15 12:30 | NUR ---
CM/SS WEEKLY TEAM CONFERENCE SUMMARY Reviewed with patient, she is in agreement to a continued stay until 07/18/19, at which time she will return home with her spouse. Patient is excited at this prospect and indicates she is ready to prepare to transition to the next step of leaving ARU. Patient had been current with [facility] in-home therapy but today requested she be set up with [facility]. Batch Trucker attempted to reach them about scheduling to confirm she would have timely access, will follow up. If they are unable to schedule her within a few day of discharge, patient will need to make an alternate agency choice. Patient and spouse are working in partnership for all planning for her return home. Today is patient's birthday and it was acknowledged by unit staff with yamilka wilkes song. Patient states she has two "birthdays", her actual and her second birthday four days later when she was born into her mother's heart through adoption. Continue discharge planning in relation to patient needs for post hospital care.
[2019-07-15] MEDS: NYSTATIN CREAM (MYCOSTATIN) 30 GM TUBE TP SCH ×2 (13:47→21:20)
--- NOTE | 2019-07-15 14:54 | Physical Therapy Daily Note ---
PT Daily Note-Current Subjective Pt. agrees to Rx. Currently on toilet. Wants in bed after Rx. Pain Location: No Pain Reported Mental Status Patient Orientation: Normal For Age Attachments: Oxygen (2L) Transfers SCALE: Activities may be completed with or without assistive devices. 6-Dssbunpvsr-ezejctn completes the activity by him/herself with no assistance from a helper. 5-Set-up or Clean-up Assistance-helper sets up or cleans up; patient completes activity. [place] assists only prior to or following the activity. 4-Supervision or Touching Assistance-helper provides verbal cues and/or touching/steadying and/or contact guard assistance as patient completes activity. Assistance may be provided throughout the activity or intermittently. 3-Partial/Moderate Assistance-helper does LESS THAN HALF the effort. [place] lifts, holds or supports trunk or limbs, but provides less than half the effort. 2-Substantial/Maximal Assistance-helper does MORE THAN HALF the effort. [place] lifts or holds trunk or limbs and provides more than half the effort. 6-Qtsagngmj-dvkxtu does ALL the effort. Patient does none of the effort to complete the activity. Or, the assistance of 2 or more helpers is required for the patient to complete the activity. If activity was not attempted, code reason: 7-Patient Refused. 9-Not Applicable-not attempted and the patient did not perform the activity before the current illness, exacerbation or injury. 10-Not Attempted due to Environmental Limitations-(lack of equipment, weather restraints, etc.). 88-Not Attempted due to Medical Conditions or Safety Concerns. toilet chair and bed all SBA to Mod I Weight Bearing Full Weight Bearing Full Weight Bearing Gait Training Does the Patient Walk?: Yes Gait Assistive Device: FWW 40ft x 1, 10 ft x1 CGA assist only for O2, no LOB, does fatigue Exercises Supine Ex: Heel Slides, Hip abd/add Supine Reps: 10 Treatments in toilet requests assist to clean after toileting for BM Assessment Current Status: Good Progress PT Short Term Goals Short Term Goals Time Frame: Jul 12, 2019 Roll Left & Right: 6 Sit to lyin Lying to sitting on side of be: 6 Sit to stand: 4 Chair/fze-wt-fdyhs transfer: 4 Toilet transfer: 4 Walk 10 feet: 4 Walk 50 feet with two turns: 4 PT Pressure Welder Goals Intermediate Goals PT Intermediate Goals Time Frame: Jul 26, 2019 Roll Left & Right (QC): 6 Sit to Lying (QC): 6 Lying-Sitting on Side/Bed(QC): 6 Sit to Stand (QC): 6 Chair/Emr-mc-Lpahs Xfer(QC): 6 Toilet Transfer (QC): 6 Car Transfer (QC): 6 Walk 10 feet (QC): 6 Walk 50ft with 2 Turns (QC): 6 Walk 150 ft (QC): 6 Walking 10ft on Uneven Surface: 6 1 Step (curb) (QC): 4 4 Steps (QC): 4 PT Plan Treatment/Plan Treatment Plan: Continue Plan of Care Treatment Plan: Bed Mobility, Concurrent Therapy, Education, Functional Activity [place], Functional Strength, Group Therapy, Gait, Safety, Therapeutic Exercise, Transfers Treatment Duration: Jul 26, 2019 Frequency: At least 5 of 7 days/Wk (IRF) Estimated Hrs Per Day: 1.5 hours per day Patient and/or Family Agrees t: Yes Safety Risks/Education Patient Education: Gait Training, Transfer Techniques, Correct Positioning, Safety Issues Teaching Recipient: Patient Teaching Methods: Demonstration, Discussion Response to Teaching: Verbalize Understanding, Return Demonstration Time/GCodes Time In: 1430 Time Out: 1500 Total Billed Treatment Time: 30 Total Billed Treatment 1,GT10m,FA20m KEVAN SOUZA YIELD IMPROVEMENT ENGINEER Jul 15, 2019 14:54
--- NOTE | 2019-07-15 15:03 | Speech Therapy Daily Note ---
Speech Daily Progress Note Subjective Date Seen by Provider: Jul 15, 2019 Time Seen by Provider: 13:00 Patient was alert and cooperative for all therapy tasks. Patient was in very good spirits because today is her birthday. Patient reported that her overall status is improving and is feeling really good. Objective Patient completed safe oral intake with 90% accuracy with minimal cues. Patient completed compensatory strategies pertaining to alternating liquids and solids with 90% accuracy. Assessment Assessment Current Status: Excellent Progress Treatment Plan Continue Plan of Care Speech Short Term Goals Short Term Goals Short Term Goals 1. Patient will tolerate least restrictive diet with s/s of aspiration at 90%. 2. Patient will utilize compensatory strategies as trained at 90% with minimal cues. Speech Correction Goals Artist Color Separation Goals Patient will maintain adequate nutrition/hydration via safe and effective swall ow function. Speech-Plan Patient/Family Goals Patient/Family Goals: Patient reports that she is eager to return home upon discharge from the ARU. Treatment Plan Speech Therapy Treatment Plan: Continue Plan of Care Treatment Duration: Jul 18, 2019 Frequency: 5 times per week Estimated Hrs Per Day: .5 hour per day Rehab Potential: Fair Barriers to Learning: Current medical status Pt/Family Agrees to Plan: Yes Safety Risks/Education Teaching Recipient: Patient Teaching Methods: Demonstration, Discussion Response to Teaching: Verbalize Understanding Education Topics Provided: Patient was provided education on the benefits of continued safe oral intake upon discharge next week. Time Speech Therapy Time In: 13:00 Speech Therapy Time Out: 13:30 Total Billed Time: 30 Billed Treatment Time ROSSANA Lamb [place] Jul 15, 2019 15:02
--- NOTE | 2019-07-15 15:55 | NUR ---
CM/SS CONCURRENT NOTE Spoke with [facility] at patient request to begin therapy there after discharge. First appointment scheduled for 07/20/19, 1315. Will fax orders and appropriate clinicals when available.
[2019-07-15] MEDS: ENOXAPARIN 40 MG/0.4 ML (LOVENOX) SYR SQ SCH (17:43)
[2019-07-15] MEDS: HYDROCHLOROTHIAZIDE 25 MG (HCTZ) TAB PO SCH (17:43)
[2019-07-15 18:00] VITALS: BP 113/64
[2019-07-15] MEDS: ATENOLOL 25 MG (TENORMIN) TAB PO SCH (21:18)
[2019-07-15] MEDS: HYDROcodone/APAP 7.5 MG/325 MG (LORTAB, LORCET PLUS) TABLET PO PRN (21:18)
[2019-07-15] MEDS: diphenhydrAMINE 25 MG TAB (BENADRYL) PO SCH (21:19)
[2019-07-15] MEDS: ROSUVASTATIN 10 MG (CRESTOR) TABLET PO SCH (21:19)
[2019-07-15] MEDS: MICONAZOLE 2% POWDER (DESENEX AF) 90 GM TOP SCH (21:20)
[2019-07-15] MEDS: PATCH REMOVAL TP SCH (21:21)
[2019-07-16] MEDS: CATHETER FLUSH 10 ML SYR IV SCH ×3 (06:40→20:51)
[2019-07-16] MEDS: NYSTATIN ORAL SUSP 5 ML UDC PO SCH ×3 (06:40→17:09)
[2019-07-16] MEDS: predniSONE 20 MG TAB PO SCH (06:41)
[2019-07-16] MEDS: inSUlin ASPART (NovoLOG) 1 UNIT/0.01 ML (CHARGE PER UNIT) SC SCH ×4 (06:45→20:50)
[2019-07-16 06:51] VITALS: BP 119/52
[2019-07-16] MEDS: ASPIRIN E.C. 81 MG (ECOTRIN) TAB PO SCH (08:50)
[2019-07-16] MEDS: PANTOPRAZOLE 40 MG (PROTONIX) TAB PO SCH (08:50)
[2019-07-16] MEDS: RANOLAZINE ER 500 MG TAB (RANEXA) PO SCH ×2 (08:50→20:48)
[2019-07-16] MEDS: SPIRONOLACTONE 25 MG (ALDACTONE) TAB PO SCH (08:50)
[2019-07-16] MEDS: amLODIPine 5 MG (NORVASC) TAB PO SCH (08:51)
[2019-07-16] MEDS: POLYETHYLENE GLYCOL 17 GM (MIRALAX) PACK PO SCH ×2 (08:51→21:27)
[2019-07-16] MEDS: DOCUSATE SODIUM 100 MG (COLACE) CAP PO SCH ×2 (08:51→21:27)
[2019-07-16] MEDS: VITAMIN D3 1,000 UNITS (CHOLECALCIFEROL) TABLET PO SCH (08:51)
[2019-07-16] MEDS: SENNA W/DOCUSATE (SENOKOT S) TABLET PO SCH ×2 (08:51→21:27)
[2019-07-16] MEDS: LOSARTAN 25 MG (COZAAR) TAB PO SCH (08:51)
[2019-07-16] MEDS: LIDOCAINE 4% (SALONPAS) PATCH TOP SCH (08:51)
[2019-07-16] MEDS: MICONAZOLE 2% POWDER (DESENEX AF) 90 GM TOP SCH ×2 (08:52→20:50)
[2019-07-16] MEDS: NYSTATIN CREAM (MYCOSTATIN) 30 GM TUBE TP SCH ×3 (08:52→20:50)
[2019-07-16 08:57] VITALS: BP 115/77
[2019-07-16] MEDS: RT-ALBUTEROL/IPRATROPIUM 3 ML (DUONEB) VIAL INH SCH ×2 (09:20→20:19)
--- NOTE | 2019-07-16 12:25 | PM&R Progress Note ---
Subjective HPI/CC On Admission Date Seen by Provider: Jul 16, 2019 Time Seen by Provider: 12:30 Subjective/Events-last exam Rash on the abdomen was noted, Nystatin cream and powder initiated.Patient appears to be improved Home O2 evaluation will be done on Thursday.Oxygen supplementation may very well decrease exacerbations of COPD I am hopeful No pain is reported. Bowels move twice today Hypoglycemia this morning 57 took 18 units of Levemir patient very brittle Progressing well Conferred with RN Reviewed therapy notes Checked meds and labs Review of Systems Pulmonary: Dyspnea, Cough rash under folds Objective Exam Vital Signs Vital Signs Date Time Temp Pulse Resp B/P (MAP) Pulse Ox O2 Delivery O2 Flow Rate FiO2 07/16/19 10:58 93 Room Air 07/16/19 10:47 62 18 07/16/19 09:20 1.00 07/16/19 08:57 115/77 (90) 07/16/19 06:51 37.2 07/14/19 15:26 28 Capillary Refill : Less Than 3 SecondsLess Than 3 Seconds General Appearance: No Apparent Distress, WD/WN, Chronically ill HEENT: PERRL/EOMI, Normal ENT Inspection, Pharynx Normal Neck: Full Range of Motion, Normal Inspection, Non Tender, Supple, Carotid Bruit Respiratory: Chest Non Tender, No Accessory Muscle Use, No Respiratory Distress, Crackles, Decreased Breath Sounds, Wheezing Cardiovascular: Regular Rate, Rhythm, No Edema, No Gallop, No JVD, No Murmur, Normal Peripheral Pulses Gastrointestinal: Normal Bowel Sounds, No Organomegaly, No Pulsatile Mass, Non Tender, Soft Back: Normal Inspection, No CVA Tenderness, No Vertebral Tenderness Extremity: Normal Capillary Refill, Normal Inspection, Normal Range of Motion, Non Tender, No Calf Tenderness, No Pedal Edema Neurologic/Psychiatric: Alert, Oriented x3, No Motor/Sensory Deficits, Normal Mood/Affect, [place] II-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 FIM Transfers Therapy Code Descriptions/Definitions Functional [place] Measure: 0=Not Assessed/NA 4=Minimal Assistance 1=Total Assistance 5=Supervision or Setup 2=Maximal Assistance 6=Modified [place] 3=Moderate Assistance 7=Complete IndependenceSCALE: Activities may be completed with or without assistive devices. 1-Wmnszcebdz-qupojsf completes the activity by him/herself with no assistance from a helper. 5-Set-up or Clean-up Assistance-helper sets up or cleans up; patient completes activity. [place] assists only prior to or following the activity. 4-Supervision or Touching Assistance-helper provides verbal cues and/or touching/steadying and/or contact guard assistance as patient completes activity. Assistance may be provided throughout the activity or intermittently. 3-Partial/Moderate Assistance-helper does LESS THAN HALF the effort. [place] lifts, holds or supports trunk or limbs, but provides less than half the effort. 2-Substantial/Maximal Assistance-helper does MORE THAN HALF the effort. [place] lifts or holds trunk or limbs and provides more than half the effort. 1-Iljgfydlg-apocls does ALL the effort. Patient does none of the effort to complete the activity. Or, the assistance of 2 or more helpers is required for the patient to complete the activity. If activity was not attempted, code reason: 7-Patient Refused. 9-Not Applicable-not attempted and the patient did not perform the activity before the current illness, exacerbation or injury. 10-Not Attempted due to Environmental Limitations-(lack of equipment, weather restraints, etc.). 88-Not Attempted due to Medical Conditions or Safety Concerns. Roll Left to Right (QC): 5 Sit to Lying (QC): 5 Sit to Stand (QC): 6 Chair/Stk-yy-Qjzzl Xfer(QC): 6 Gait Training Does the Patient Walk?: Yes Distance: 15' x2 Walk 10 feet (QC): 5 Walk 50 ft with 2 Turns(QC): 5 Walk 150 ft (QC): 88 Walking 10ft/uneven surface-QC: 88 Gait Persons Needed: 1 Gait Assistive Device: FWW Wheelchair Training Does the Pt Use a Wheelchair?: Yes Distance: 150' Wheel 50 ft with 2 turns (QC): 5 Wheel 150 ft (QC): 5 Type of Wheelchair: Manual Stair Training #of Steps: 88 1 Step (curb) (QC): 88 4 Steps (QC): 88 12 Steps (QC): 88 Balance Picking up an Object (QC): 88 ADL-Treatment Eating (QC): 6 (Pt able to set own self up and use regular utensils to eat.) Oral Hygiene (QC): 6 Shower/Bathe Self (QC): 6 Upper Body Dressing (QC): 5 Lower Body Dressing (QC): 5 On/Off Footwear (QC): 6 Toileting Hygiene (QC): 4 Toilet Transfer (QC): 6 Assessment/Plan Assessment and Plan Assess & Plan/Chief Complaint Assessment: PNA with debility Volume overload responded to Lasix DM HTN CAD h/o UTI Chronic back pain Constipation Yeast skin infection Hypoglycemia Plan: Monitor BP and BS Home meds Pain meds IRF protocol Nebs ICS Much improved air movement now but still severe COPD Nystatin cream and powder (1) Debility (2) IDDM (insulin dependent diabetes mellitus) Status: Acute (3) CAD (coronary artery disease) Status: Chronic (4) Vertigo Status: Acute (5) HTN (hypertension) Status: Acute (1) Right lower lobe pneumonia Status: Acute (2) Hypoxia Status: Acute (3) Generalized weakness Status: Acute (4) COPD exacerbation Status: Acute (5) Debility (6) HTN (hypertension) Status: Acute (7) CAD (coronary artery disease) Status: Chronic (8) IDDM (insulin dependent diabetes mellitus) Status: Acute CHELY ESPARZA DO Jul 16, 2019 12:24
[2019-07-16 16:26] VITALS: BP 110/64
[2019-07-16] MEDS: HYDROCHLOROTHIAZIDE 25 MG (HCTZ) TAB PO SCH (17:09)
[2019-07-16] MEDS: ENOXAPARIN 40 MG/0.4 ML (LOVENOX) SYR SQ SCH (17:09)
[2019-07-16] MEDS: ROSUVASTATIN 10 MG (CRESTOR) TABLET PO SCH (20:48)
[2019-07-16] MEDS: ATENOLOL 25 MG (TENORMIN) TAB PO SCH (20:48)
[2019-07-16] MEDS: diphenhydrAMINE 25 MG TAB (BENADRYL) PO SCH (20:48)
[2019-07-16] MEDS: HYDROcodone/APAP 7.5 MG/325 MG (LORTAB, LORCET PLUS) TABLET PO PRN (20:49)
[2019-07-16] MEDS: PATCH REMOVAL TP SCH (20:51)
[2019-07-16] MEDS: guaiFENesin/CODEINE (ROBITUSSIN AC) 10ML UDC PO PRN (21:11)
[2019-07-17] MEDS: predniSONE 20 MG TAB PO SCH (06:09)
[2019-07-17] MEDS: CATHETER FLUSH 10 ML SYR IV SCH ×3 (06:09→20:48)
[2019-07-17] MEDS: inSUlin ASPART (NovoLOG) 1 UNIT/0.01 ML (CHARGE PER UNIT) SC SCH ×4 (06:16→20:47)
[2019-07-17 06:17] VITALS: BP 121/68
[2019-07-17] MEDS: LOSARTAN 25 MG (COZAAR) TAB PO SCH (08:42)
[2019-07-17] MEDS: RANOLAZINE ER 500 MG TAB (RANEXA) PO SCH ×2 (08:42→20:36)
[2019-07-17] MEDS: PANTOPRAZOLE 40 MG (PROTONIX) TAB PO SCH (08:42)
[2019-07-17] MEDS: SPIRONOLACTONE 25 MG (ALDACTONE) TAB PO SCH (08:42)
[2019-07-17] MEDS: ASPIRIN E.C. 81 MG (ECOTRIN) TAB PO SCH (08:42)
[2019-07-17] MEDS: amLODIPine 5 MG (NORVASC) TAB PO SCH (08:42)
[2019-07-17] MEDS: VITAMIN D3 1,000 UNITS (CHOLECALCIFEROL) TABLET PO SCH (08:42)
[2019-07-17] MEDS: MICONAZOLE 2% POWDER (DESENEX AF) 90 GM TOP SCH ×2 (08:43→20:39)
[2019-07-17 08:44] VITALS: BP 110/67
[2019-07-17] MEDS: LIDOCAINE 4% (SALONPAS) PATCH TOP SCH ×2 (08:44→13:42)
[2019-07-17] MEDS: NYSTATIN CREAM (MYCOSTATIN) 30 GM TUBE TP SCH ×3 (08:44→20:39)
[2019-07-17] MEDS: POLYETHYLENE GLYCOL 17 GM (MIRALAX) PACK PO SCH ×2 (08:53→20:48)
[2019-07-17] MEDS: DOCUSATE SODIUM 100 MG (COLACE) CAP PO SCH ×2 (08:53→20:47)
[2019-07-17] MEDS: SENNA W/DOCUSATE (SENOKOT S) TABLET PO SCH ×2 (08:54→20:48)
[2019-07-17] MEDS: RT-ALBUTEROL/IPRATROPIUM 3 ML (DUONEB) VIAL INH SCH ×2 (09:08→19:43)
--- NOTE | 2019-07-17 11:54 | PM&R Progress Note ---
Subjective HPI/CC On Admission Date Seen by Provider: Jul 17, 2019 Time Seen by Provider: 12:00 Subjective/Events-last exam Rash on the abdomen was noted Thursday, Nystatin cream and powder initiated.Patient appears to be improved Home O2 evaluation will be done tomorrow prior to DC.Oxygen supplementation may very well decrease exacerbations of COPD I am hopeful Night time O2 check will be done tonight also No pain is reported. Bowels moving well Hypoglycemia less severe this morning Progressing well Conferred with RN Reviewed therapy notes Checked meds and labs Review of Systems General: Fatigue Pulmonary: Dyspnea rash under folds Objective Exam Vital Signs Vital Signs Date Time Temp Pulse Resp B/P (MAP) Pulse Ox O2 Delivery O2 Flow Rate FiO2 07/17/19 09:28 Room Air 07/17/19 09:09 90 07/17/19 08:44 57 18 110/67 (81) 07/17/19 06:17 36.7 07/16/19 09:20 1.00 07/14/19 15:26 28 Capillary Refill : Less Than 3 SecondsLess Than 3 Seconds General Appearance: No Apparent Distress, WD/WN, Chronically ill HEENT: PERRL/EOMI, Normal ENT Inspection, Pharynx Normal Neck: Full Range of Motion, Normal Inspection, Non Tender, Supple, Carotid Bruit Respiratory: Chest Non Tender, No Accessory Muscle Use, No Respiratory Distress, Crackles, Decreased Breath Sounds, Wheezing Cardiovascular: Regular Rate, Rhythm, No Edema, No Gallop, No JVD, No Murmur, Normal Peripheral Pulses Gastrointestinal: Normal Bowel Sounds, No Organomegaly, No Pulsatile Mass, Non Tender, Soft Back: Normal Inspection, No CVA Tenderness, No Vertebral Tenderness Extremity: Normal Capillary Refill, Normal Inspection, Normal Range of Motion, Non Tender, No Calf Tenderness, No Pedal Edema Neurologic/Psychiatric: Alert, Oriented x3, No Motor/Sensory Deficits, Normal 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 FIM Transfers Therapy Code Descriptions/Definitions Functional [place] Measure: 0=Not Assessed/NA 4=Minimal Assistance 1=Total Assistance 5=Supervision or Setup 2=Maximal Assistance 6=Modified [place] 3=Moderate Assistance 7=Complete IndependenceSCALE: Activities may be completed with or without assistive devices. 5-Riujzowfxr-zukdfaz completes the activity by him/herself with no assistance from a helper. 5-Set-up or Clean-up Assistance-helper sets up or cleans up; patient completes activity. [place] assists only prior to or following the activity. 4-Supervision or Touching Assistance-helper provides verbal cues and/or touching/steadying and/or contact guard assistance as patient completes activity. Assistance may be provided throughout the activity or intermittently. 3-Partial/Moderate Assistance-helper does LESS THAN HALF the effort. [place] lifts, holds or supports trunk or limbs, but provides less than half the effort. 2-Substantial/Maximal Assistance-helper does MORE THAN HALF the effort. [place] lifts or holds trunk or limbs and provides more than half the effort. 8-Nownztclp-obxbsr does ALL the effort. Patient does none of the effort to complete the activity. Or, the assistance of 2 or more helpers is required for the patient to complete the activity. If activity was not attempted, code reason: 7-Patient Refused. 9-Not Applicable-not attempted and the patient did not perform the activity before the current illness, exacerbation or injury. 10-Not Attempted due to Environmental Limitations-(lack of equipment, weather restraints, etc.). 88-Not Attempted due to Medical Conditions or Safety Concerns. Roll Left to Right (QC): 5 Sit to Lying (QC): 5 Sit to Stand (QC): 6 Chair/Bho-bu-Osuxv Xfer(QC): 6 Gait Training Does the Patient Walk?: Yes Distance: 15' x2 Walk 10 feet (QC): 5 Walk 50 ft with 2 Turns(QC): 5 Walk 150 ft (QC): 88 Walking 10ft/uneven surface-QC: 88 Gait Persons Needed: 1 Gait Assistive Device: FWW Wheelchair Training Does the Pt Use a Wheelchair?: Yes Distance: 150' Wheel 50 ft with 2 turns (QC): 5 Wheel 150 ft (QC): 5 Type of Wheelchair: Manual Stair Training #of Steps: 88 1 Step (curb) (QC): 88 4 Steps (QC): 88 12 Steps (QC): 88 Balance Picking up an Object (QC): 88 ADL-Treatment Eating (QC): 6 (Pt able to set own self up and use regular utensils to eat.) Oral Hygiene (QC): 6 Shower/Bathe Self (QC): 6 Upper Body Dressing (QC): 5 Lower Body Dressing (QC): 5 On/Off Footwear (QC): 6 Toileting Hygiene (QC): 4 Toilet Transfer (QC): 6 Assessment/Plan Assessment and Plan Assess & Plan/Chief Complaint Assessment: PNA with debility Volume overload responded to Lasix DM HTN CAD h/o UTI Chronic back pain Constipation Yeast skin infection Hypoglycemia Plan: Monitor BP and BS Home meds Pain meds IRF protocol Nebs ICS Much improved air movement now but still severe COPD Nystatin cream and powder O2 evaluation (1) Debility (2) IDDM (insulin dependent diabetes mellitus) Status: Acute (3) CAD (coronary artery disease) Status: Chronic (4) Vertigo Status: Acute (5) HTN (hypertension) Status: Acute (1) Right lower lobe pneumonia Status: Acute (2) Hypoxia Status: Acute (3) Generalized weakness Status: Acute (4) COPD exacerbation Status: Acute (5) Debility (6) HTN (hypertension) Status: Acute (7) CAD (coronary artery disease) Status: Chronic (8) IDDM (insulin dependent diabetes mellitus) Status: Acute CHELY ESPARZA DO Jul 17, 2019 11:54
[2019-07-17] MEDS: HYDROCHLOROTHIAZIDE 25 MG (HCTZ) TAB PO SCH (17:16)
[2019-07-17] MEDS: ENOXAPARIN 40 MG/0.4 ML (LOVENOX) SYR SQ SCH (17:16)
[2019-07-17 17:24] VITALS: BP 132/77
[2019-07-17] MEDS: ATENOLOL 25 MG (TENORMIN) TAB PO SCH (20:37)
[2019-07-17] MEDS: ROSUVASTATIN 10 MG (CRESTOR) TABLET PO SCH (20:37)
[2019-07-17] MEDS: diphenhydrAMINE 25 MG TAB (BENADRYL) PO SCH (20:37)
[2019-07-17] MEDS: HYDROcodone/APAP 7.5 MG/325 MG (LORTAB, LORCET PLUS) TABLET PO PRN (20:38)
[2019-07-17] MEDS: PATCH REMOVAL TP SCH (20:48)
[2019-07-18] MEDS: guaiFENesin/CODEINE (ROBITUSSIN AC) 10ML UDC PO PRN ×3 (00:40→14:35)
[2019-07-18 05:09] VITALS: BP 119/70
[2019-07-18] MEDS: inSUlin ASPART (NovoLOG) 1 UNIT/0.01 ML (CHARGE PER UNIT) SC SCH ×3 (05:41→15:25)
[2019-07-18] MEDS: CATHETER FLUSH 10 ML SYR IV SCH ×2 (05:41→14:29)
[2019-07-18] MEDS: predniSONE 20 MG TAB PO SCH (06:28)
[2019-07-18 07:24] LABS: BASOPHILS % (AUTO) 0 % (0-10); EOSINOPHILS % (AUTO) 0 % (0-10); HEMATOCRIT 38 % (35-52); HEMOGLOBIN 12.8 G/DL (11.5-16.0); LYMPHOCYTES # (AUTO) 1.2 X 10^3 (1.0-4.0); LYMPHOCYTES % (AUTO) 25 % (12-44); MEAN CORPUSCULAR HEMOGLOBIN 34 PG (25-34); MEAN CORPUSCULAR HGB CONC 34 G/DL (32-36); MEAN CORPUSCULAR VOLUME 99 FL (80-99); MONOCYTES # (AUTO) 0.6 X 10^3 (0.0-1.0); MONOCYTES % (AUTO) 14 % (0-12); NEUTROPHILS # (AUTO) 2.7 X 10^3 (1.8-7.8); NEUTROPHILS % (AUTO) 60 % (42-75); PLATELET COUNT 123 10^3/uL (130-400); RED CELL DISTRIBUTION WIDTH 12.1 % (10.0-14.5); WHITE BLOOD COUNT 4.5 10^3/uL (4.3-11.0)
[2019-07-18 07:52] LABS: ALANINE AMINOTRANSFERASE 18 U/L (0-55); ALBUMIN 3.1 GM/DL (3.2-4.5); ALKALINE PHOSPHATASE 44 U/L (40-136); BILIRUBIN,TOTAL 0.6 MG/DL (0.1-1.0); BUN/CREATININE RATIO 19; CALCIUM 8.7 MG/DL (8.5-10.1); CARBON DIOXIDE 26 MMOL/L (21-32); CHLORIDE 102 MMOL/L (98-107); CREATININE SERUM 0.69 MG/DL (0.60-1.30); GFR ESTIMATED > 60; GLUCOSE 76 MG/DL (70-105); POTASSIUM 3.6 MMOL/L (3.6-5.0); SODIUM 136 MMOL/L (135-145); TOTAL PROTEIN 5.1 GM/DL (6.4-8.2)
[2019-07-18] MEDS: RT-ALBUTEROL/IPRATROPIUM 3 ML (DUONEB) VIAL INH SCH (08:15)
[2019-07-18] MEDS ORDERED: MICO90PO TOP (08:35)
[2019-07-18] MEDS ORDERED: PRED10TA22 PO (08:35)
[2019-07-18] MEDS ORDERED: NYST15CR TP (08:35)
--- NOTE | 2019-07-18 08:36 | Discharge Summary ---
Diagnosis/Chief Complaint Date of Admission Jul 05, 2019 at 10:53 Date of Discharge Discharge Date: Jul 18, 2019 Discharge Diagnosis Assessment: PNA with debility Volume overload responded to Lasix DM HTN CAD h/o UTI Chronic back pain Constipation Yeast skin infection Hypoglycemia Plan: Monitor BP and BS Home meds Pain meds IRF protocol Nebs ICS Much improved air movement now but still severe COPD Nystatin cream and powder O2 evaluation (1) Debility (2) IDDM (insulin dependent diabetes mellitus) Status: Acute (3) CAD (coronary artery disease) Status: Chronic (4) Vertigo Status: Acute (5) HTN (hypertension) Status: Acute (1) Right lower lobe pneumonia Status: Acute (2) Hypoxia Status: Acute (3) Generalized weakness Status: Acute (4) COPD exacerbation Status: Acute (5) Debility (6) HTN (hypertension) Status: Acute (7) CAD (coronary artery disease) Status: Chronic (8) IDDM (insulin dependent diabetes mellitus) Status: Acute Discharge Summary Discharge Physical Examination Allergies: Coded Allergies: Sulfa (Sulfonamide Antibiotics) (Unverified Allergy, Unknown, HIVES, SOB, 10/27/06) morphine (Unverified Allergy, Unknown, Pt has received Lortab in the pas, 07/05/19) propoxyphene (Unverified Allergy, Unknown, UNKNOWN, 10/27/06) erythromycin base (Unverified Adverse Reaction, Unknown, SICK TO HER STOMACH, CRAMPS, VOMITING, 10/27/06) Vitals & I&Os Vital Signs Date Time Temp Pulse Resp B/P (MAP) Pulse Ox O2 Delivery O2 Flow Rate FiO2 07/18/19 15:00 36.8 64 22 127/72 95 07/18/19 08:23 Room Air 07/16/19 09:20 1.00 07/14/19 15:26 28 General Appearance: Alert, Oriented X3, Cooperative Respiratory: Clear to Auscultation Cardiovascular: Regular Rate Neuro: Normal Gait, Normal Speech, Strength at 5/5 X4 Ext Psych/Mental Status: Mental Status NL Hospital Course Was the Problem List Reviewed?: Yes Hospital course: Pt had a nearly two week hospital course in inpatient rehab after she was admitted there for pneumonia and exacerbation of COPD, she participated in all therapy, slow recovery noted but she was able to participate in all activity, maintained on oxygen supplementation pretty much 05/01, that was weaned ultimately and will complete the home oxygen study before discharge. Pt was still on a Prednisone taper dose, labs were obtained the day of discharge, everything was within normal limits and Dr. Clay was updated on the plan for discharge today. Labs (last 24 hrs) Laboratory Tests 07/05/19 15:10: Glucometer 292H 07/05/19 22:08: Glucometer 299H 07/06/19 05:35: White Blood Count 7.1, Red Blood Count 3.75L, Hemoglobin 12.9, Hematocrit 37, Mean Corpuscular Volume 98, Mean Corpuscular Hemoglobin 34, Mean Corpuscular Hemoglobin Concent 35, Red Cell Distribution Width 12.2, Platelet Count 158, Mean Platelet Volume 9.4, Neutrophils (%) (Auto) 83H, Lymphocytes (%) (Auto) 7L, Monocytes (%) (Auto) 10, Eosinophils (%) (Auto) 0, Basophils (%) (Auto) 0, Neutrophils # (Auto) 5.9, Lymphocytes # (Auto) 0.5L, Monocytes # (Auto) 0.7, Eosinophils # (Auto) 0.0, Basophils # (Auto) 0.0, Sodium Level 135, Potassium Level 3.8, Chloride Level 101, Carbon Dioxide Level 23, Anion Gap 11, Blood Urea Nitrogen 28H, Creatinine 0.95, Estimat Glomerular Filtration Rate 57, BUN/Creatinine Ratio 29, Glucose Level 269H, Calcium Level 8.8, Corrected Calcium 9.6, Total Bilirubin 0.7, Aspartate Amino Transf (AST/SGOT) 15, Alanine Aminotransferase (ALT/SGPT) 16, Alkaline Phosphatase 43, Total Protein 5.0L, Alb umin 3.0L 07/06/19 10:33: Glucometer 145H 07/06/19 14:39: Glucometer 172H 07/06/19 20:45: Glucometer 227H 07/07/19 06:13: Glucometer 98 07/07/19 09:23: Glucometer 137H 07/07/19 14:42: Glucometer 225H 07/07/19 20:35: Glucometer 152H 07/08/19 05:59: Glucometer 86 07/08/19 09:19: Glucometer 115H 07/08/19 10:44: White Blood Count 11.3H, Red Blood Count 4.23L, Hemoglobin 14.4, Hematocrit 42, Mean Corpuscular Volume 99, Mean Corpuscular Hemoglobin 34, Mean Corpuscular Hemoglobin Concent 35, Red Cell Distribution Width 12.4, Platelet Count 163, Mean Platelet Volume 9.5, Sodium Level 135, Potassium Level 4.8, Chloride Level 101, Carbon Dioxide Level 21, Anion Gap 13, Blood Urea Nitrogen 21H, Creatinine 0.84, Estimat Glomerular Filtration Rate > 60, BUN/Creatinine Ratio 25, Glucose Level 101, Calcium Level 8.7, Corrected Calcium 9.2, Magnesium Level 2.0, Total Bilirubin 0.9, Aspartate Amino Transf (AST/SGOT) 30, Alanine Aminotransferase (ALT/SGPT) 27, Alkaline Phosphatase 50, Total Protein 5.6L, Albumin 3.4 07/08/19 12:57: Glucometer 145H 07/08/19 20:36: Glucometer 153H 07/09/19 06:08: Glucometer 72 07/09/19 09:47: Glucometer 145H 07/09/19 14:41: Glucometer 219H 07/09/19 20:01: Glucometer 194H 07/10/19 05:23: Glucometer 78 07/10/19 09:44: Glucometer 253H 07/10/19 14:17: Glucometer 182H 07/10/19 20:08: Glucometer 137H 07/11/19 05:40: White Blood Count 7.5, Red Blood Count 4.14L, Hemoglobin 13.9, Hematocrit 41, Mean Corpuscular Volume 99, Mean Corpuscular Hemoglobin 34, Mean Corpuscular Hemoglobin Concent 34, Red Cell Distribution Width 12.5, Platelet Count 129L, Mean Platelet Volume 10.1, Neutrophils (%) (Auto) 77H, Lymphocytes (%) (Auto) 10L, Monocytes (%) (Auto) 13H, Eosinophils (%) (Auto) 0, Basophils (%) (Auto) 0, Neutrophils # (Auto) 5.7, Lymphocytes # (Auto) 0.7L, Monocytes # (Auto) 1.0, Eosinophils # (Auto) 0.0, Basophils # (Auto) 0.0, Sodium Level 134L, Potassium Level 3.6, Chloride Level 98, Carbon Dioxide Level 28, Anion Gap 8, Blood Urea Nitrogen 15, Creatinine 0.76, Estimat Glomerular Filtration Rate > 60, BUN/Creatinine Ratio 20, Glucose Level 84, Calcium Level 8.9, Corrected Calcium 9.5, Total Bilirubin 0.6, Aspartate Amino Transf (AST/SGOT) 20, Alanine Aminotransferase (ALT/SGPT) 20, Alkaline Phosphatase 53, Total Protein 5.4L, Albumin 3.3 07/11/19 06:38: Glucometer 76 07/11/19 09:33: Glucometer 106 07/11/19 14:29: Glucometer 164H 07/11/19 19:22: Glucometer 183H 07/12/19 06:07: Glucometer 72 07/12/19 09:40: Glucometer 92 07/12/19 14:10: Glucometer 168H 07/12/19 19:51: Glucometer 155H 07/12/19 21:03: Glucometer 152H 07/13/19 06:08: Glucometer 73 07/13/19 09:55: Glucometer 91 07/13/19 14:51: Glucometer 179H 07/13/19 21:02: Glucometer 148H 07/14/19 05:13: Glucometer 78 07/14/19 05:17: White Blood Count 5.5, Red Blood Count 3.75L, Hemoglobin 12.7, Hematocrit 38, M jonah Corpuscular Volume 101H, Mean Corpuscular Hemoglobin 34, Mean Corpuscular Hemoglobin Concent 34, Red Cell Distribution Width 12.3, Platelet Count 123L, Mean Platelet Volume 10.3, Creatinine 0.68 07/14/19 09:40: Glucometer 115H 07/14/19 14:44: Glucometer 201H 07/14/19 19:34: Glucometer 147H 07/14/19 21:29: Glucometer 142H 07/15/19 06:09: Glucometer 107 07/15/19 10:20: Glucometer 143H 07/15/19 14:26: Glucometer 213H 07/15/19 20:54: Glucometer 176H 07/16/19 06:44: Glucometer 52*L 07/16/19 07:31: Glucometer 96 07/16/19 10:40: Glucometer 145H 07/16/19 15:02: Glucometer 263H 07/16/19 20:10: Glucometer 220H 07/17/19 06:05: Glucometer 78 07/17/19 09:27: Glucometer 157H 07/17/19 14:27: Glucometer 310H 07/17/19 20:33: Glucometer 163H 07/18/19 06:20: White Blood Count 4.5, Red Blood Count 3.82L, Hemoglobin 12.8, Hematocrit 38, Mean Corpuscular Volume 99, Mean Corpuscular Hemoglobin 34, Mean Corpuscular Hemoglobin Concent 34, Red Cell Distribution Width 12.1, Platelet Count 123L, Mean Platelet Volume 10.0, Neutrophils (%) (Auto) 60, Lymphocytes (%) (Auto) 25, Monocytes (%) (Auto) 14H, Eosinophils (%) (Auto) 0, Basophils (%) (Auto) 0, Neutrophils # (Auto) 2.7, Lymphocytes # (Auto) 1.2, Monocytes # (Auto) 0.6, Eosinophils # (Auto) 0.0, Basophils # (Auto) 0.0, Sodium Level 136, Potassium Level 3.6, Chloride Level 102, Carbon Dioxide Level 26, Anion Gap 8, Blood Urea Nitrogen 13, Creatinine 0.69, Estimat Glomerular Filtration Rate > 60, BUN/Creatinine Ratio 19, Glucose Level 76, Calcium Level 8.7, Corrected Calcium 9.4, Total Bilirubin 0.6, Aspartate Amino Transf (AST/SGOT) 11, Alanine Aminotransferase (ALT/SGPT) 18, Alkaline Phosphatase 44, Total Protein 5.1L, Albumin 3.1L 07/18/19 06:35: Glucometer 67L 07/18/19 10:56: Glucometer 154H Pending Labs Laboratory Tests 07/05/19 15:10: Glucometer 292 07/05/19 22:08: Glucometer 299 07/06/19 05:35: White Blood Count 7.1, Red Blood Count 3.75, Hemoglobin 12.9, Hematocrit 37, Mean Corpuscular Volume 98, Mean Corpuscular Hemoglobin 34, Mean Corpuscular Hemoglobin Concent 35, Red Cell Distribution Width 12.2, Platelet Count 158, Mean Platelet Volume 9.4, Neutrophils (%) (Auto) 83, Lymphocytes (%) (Auto) 7, Monocytes (%) (Auto) 10, Eosinophils (%) (Auto) 0, Basophils (%) (Auto) 0, Neutrophils # (Auto) 5.9, Lymphocytes # (Auto) 0.5, Monocytes # (Auto) 0.7, Eosinophils # (Auto) 0.0, Basophils # (Auto) 0.0, Sodium Level 135, Potassium Level 3.8, Chloride Level 101, Carbon Dioxide Level 23, Anion Gap 11, Blood Urea Nitrogen 28, Creatinine 0.95, Estimat Glomerular Filtration Rate 57, BUN/Creatinine Ratio 29, Glucose Level 269, Calcium Level 8.8, Corrected Calcium 9.6, Total Bilirubin 0.7, Aspartate Amino Transf (AST/SGOT) 15, Alanine Aminotransferase (ALT/SGPT) 16, Alkaline Phosphatase 43, Total Protein 5.0, Albumin 3.0 07/06/19 10:33: Glucometer 145 07/06/19 14:39: Glucometer 172 07/06/19 20:45: Glucometer 227 07/07/19 06:13: Glucometer 98 07/07/19 09:23: Glucometer 137 07/07/19 14:42: Glucometer 225 07/07/19 20:35: Glucometer 152 07/08/19 05:59: Glucometer 86 07/08/19 09:19: Glucometer 115 07/08/19 10:44: White Blood Count 11.3, Red Blood Count 4.23, Hemoglobin 14.4, Hematocrit 42, Mean Corpuscular Volume 99, Mean Corpuscular Hemoglobin 34, Mean Corpuscular Hemoglobin Concent 35, Red Cell Distribution Width 12.4, Platelet Count 163, Mean Platelet Volume 9.5, Sodium Level 135, Potassium Level 4.8, Chloride Level 101, Carbon Dioxide Level 21, Anion Gap 13, Blood Urea Nitrogen 21, Creatinine 0.84, Estimat Glomerular Filtration Rate > 60, BUN/Creatinine Ratio 25, Glucose Level 101, Calcium Level 8.7, Corrected Calcium 9.2, Magnesium Level 2.0, Total Bilirubin 0.9, Aspartate Amino Transf (AST/SGOT) 30, Alanine Aminotransferase (ALT/SGPT) 27, Alkaline Phosphatase 50, Total Protein 5.6, Albumin 3.4 07/08/19 12:57: Glucometer 145 07/08/19 20:36: Glucometer 153 07/09/19 06:08: Glucometer 72 07/09/19 09:47: Glucometer 145 07/09/19 14:41: Glucometer 219 07/09/19 20:01: Glucometer 194 07/10/19 05:23: Glucometer 78 07/10/19 09:44: Glucometer 253 07/10/19 14:17: Glucometer 182 07/10/19 20:08: Glucometer 137 07/11/19 05:40: White Blood Count 7.5, Red Blood Count 4.14, Hemoglobin 13.9, Hematocrit 41, Mean Corpuscular Volume 99, Mean Corpuscular Hemoglobin 34, Mean Corpuscular Hemoglobin Concent 34, Red Cell Distribution Width 12.5, Platelet Count 129, Mean Platelet Volume 10.1, Neutrophils (%) (Auto) 77, Lymphocytes (%) (Auto) 10, Monocytes (%) (Auto) 13, Eosinophils (%) (Auto) 0, Basophils (%) (Auto) 0, Neutrophils # (Auto) 5.7, Lymphocytes # (Auto) 0.7, Monocytes # (Auto) 1.0, Eosinophils # (Auto) 0.0, Basophils # (Auto) 0.0, Sodium Level 134, Potassium Level 3.6, Chloride Level 98, Carbon Dioxide Level 28, Anion Gap 8, Blood Urea Nitrogen 15, Creatinine 0.76, Estimat Glomerular Filtration Rate > 60, BUN/Creatinine Ratio 20, Glucose Level 84, Calcium Level 8.9, Corrected Calcium 9.5, Total Bilirubin 0.6, Aspartate Amino Transf (AST/SGOT) 20, Alanine Aminotransferase (ALT/SGPT) 20, Alkaline Phosphatase 53, Total Protein 5.4, Albumin 3.3 07/11/19 06:38: Glucometer 76 07/11/19 09:33: Glucometer 106 07/11/19 14:29: Glucometer 164 07/11/19 19:22: Glucometer 183 07/12/19 06:07: Glucometer 72 07/12/19 09:40: Glucometer 92 07/12/19 14:10: Glucometer 168 07/12/19 19:51: Glucometer 155 07/12/19 21:03: Glucometer 152 07/13/19 06:08: Glucometer 73 07/13/19 09:55: Glucometer 91 07/13/19 14:51: Glucometer 179 07/13/19 21:02: Glucometer 148 07/14/19 05:13: Glucometer 78 07/14/19 05:17: White Blood Count 5.5, Red Blood Count 3.75, Hemoglobin 12.7, Hematocrit 38, Mean Corpuscular Volume 101, Mean Corpuscular Hemoglobin 34, Mean Corpuscular Hemoglobin Concent 34, Red Cell Distribution Width 12.3, Platelet Count 123, Mean Platelet Volume 10.3, Creatinine 0.68 07/14/19 09:40: Glucometer 115 07/14/19 14:44: Glucometer 201 07/14/19 19:34: Glucometer 147 07/14/19 21:29: Glucometer 142 07/15/19 06:09: Glucometer 107 07/15/19 10:20: Glucometer 143 07/15/19 14:26: Glucometer 213 07/15/19 20:54: Glucometer 176 07/16/19 06:44: Glucometer 52 07/16/19 07:31: Glucometer 96 07/16/19 10:40: Glucometer 145 07/16/19 15:02: Glucometer 263 07/16/19 20:10: Glucometer 220 07/17/19 06:05: Glucometer 78 07/17/19 09:27: Glucometer 157 07/17/19 14:27: Glucometer 310 07/17/19 20:33: Glucometer 163 07/18/19 06:20: White Blood Count 4.5, Red Blood Count 3.82, Hemoglobin 12.8, Hematocrit 38, Mean Corpuscular Volume 99, Mean Corpuscular Hemoglobin 34, Mean Corpuscular Hemoglobin Concent 34, Red Cell Distribution Width 12.1, Platelet Count 123, Mean Platelet Volume 10.0, Neutrophils (%) (Auto) 60, Lymphocytes (%) (Auto) 25, Monocytes (%) (Auto) 14, Eosinophils (%) (Auto) 0, Basophils (%) (Auto) 0, Neutrophils # (Auto) 2.7, Lymphocytes # (Auto) 1.2, Monocytes # (Auto) 0.6, Eosinophils # (Auto) 0.0, Basophils # (Auto) 0.0, Sodium Level 136, Potassium Level 3.6, Chloride Level 102, Carbon Dioxide Level 26, Anion Gap 8, Blood Urea Nitrogen 13, Creatinine 0.69, Estimat Glomerular Filtration Rate > 60, BUN/Creatinine Ratio 19, Glucose Level 76, Calcium Level 8.7, Corrected Calcium 9.4, Total Bilirubin 0.6, Aspartate Amino Transf (AST/SGOT) 11, Alanine Aminotransferase (ALT/SGPT) 18, Alkaline Phosphatase 44, Total Protein 5.1, Albumin 3.1 07/18/19 06:35: Glucometer 67 07/18/19 10:56: Glucometer 154 Discharge Home Medications: Active Scripts Active Prednisone 10 Mg Tab.ds.pk 10 Mg PO DAILY Take 4 tabs(40mg)daily,decrease by 1 tab(10MG)daily. Nystatin 15 Gm Cream..g. 0 Gm TP TID Lotrimin AF (Miconazole Nitrate) 90 Gm Powder 0 Gm TOP BID Reported Ranolazine ER (Ranolazine) 1,000 Mg Tab.er.12h 1,000 Mg PO BID Ventolin Hfa (Albuterol Sulfate) 18 Gm Hfa.aer.ad 2 Puff INH Q4H PRN Prometh-Codein 6.25-10 mg/5 ml (Promethazine HCl/Codeine) 5 Ml Syrup 5-10 Ml PO Q6H PRN Banophen (Diphenhydramine HCl) 25 Mg Capsule 50 Mg PO HS TAKES 2 (25MG) CAPSULES Levemir (Insulin Determir) 1,000 Units/10 Ml Soln 15-20 Units SQ HS Levemir (Insulin Determir) 1,000 Units/10 Ml Soln 10 Units SC DAILY Vitamin D-3 (Cholecalciferol (Vitamin D3)) 2,000 Unit Tablet 2,000 Unit PO DAILY Novolog (Insulin Aspart) 100 Unit/1 Ml Susp 20 Unit SQ DAILY Atenolol 25 Mg Tablet 25 Mg PO HS Pantoprazole Sodium 40 Mg Tablet.dr 40 Mg PO DAILY Spironolactone 25 Mg Tablet 25 Mg PO DAILY Rosuvastatin Calcium 10 Mg Tablet 10 Mg PO HS Furosemide 20 Mg Tablet 20 Mg PO DAILY Amlodipine Besylate 5 Mg Tablet 5 Mg PO DAILY Albuterol Sulfate 2.5 Mg/3 Ml Vial.neb 2.5 Mg IH QID PRN Hydrocodon-Acetaminophn 10-325 (Hydrocodone/Acetaminophen) 1 Each Tablet 1 Tab PO Q6H PRN Adult Low Dose Aspirin EC (Aspirin) 81 Mg Tablet.dr 81 Mg PO DAILY Losartan Potassium 25 Mg Tablet 25 Mg PO DAILY Hydrochlorothiazide 25 Mg Tablet 25 Mg PO HS Instructions to patient/family Please see electronic discharge instructions given to patient. Diagnosis/Problems Diagnosis/Problems (1) Right lower lobe pneumonia Status: Acute (2) Hypoxia Status: Acute (3) Generalized weakness Status: Acute (4) COPD exacerbation Status: Acute (5) Debility (6) HTN (hypertension) Status: Acute (7) CAD (coronary artery disease) Status: Chronic (8) IDDM (insulin dependent diabetes mellitus) Status: Acute Clinical Quality Measures DVT/VTE Risk/Contraindication: Risk Factor Score Per Nursin RFS Level Per Nursing on Admit: 3=High CHELY ESPARZA DO Jul 18, 2019 08:36
[2019-07-18] MEDS: ASPIRIN E.C. 81 MG (ECOTRIN) TAB PO SCH (09:20)
[2019-07-18] MEDS: SPIRONOLACTONE 25 MG (ALDACTONE) TAB PO SCH (09:20)
[2019-07-18] MEDS: amLODIPine 5 MG (NORVASC) TAB PO SCH (09:20)
[2019-07-18] MEDS: RANOLAZINE ER 500 MG TAB (RANEXA) PO SCH (09:20)
[2019-07-18] MEDS: PANTOPRAZOLE 40 MG (PROTONIX) TAB PO SCH (09:20)
[2019-07-18] MEDS: LOSARTAN 25 MG (COZAAR) TAB PO SCH (09:20)
[2019-07-18] MEDS: LIDOCAINE 4% (SALONPAS) PATCH TOP SCH (09:21)
[2019-07-18] MEDS: VITAMIN D3 1,000 UNITS (CHOLECALCIFEROL) TABLET PO SCH (09:21)
[2019-07-18] MEDS: MICONAZOLE 2% POWDER (DESENEX AF) 90 GM TOP SCH (09:21)
[2019-07-18] MEDS: DOCUSATE SODIUM 100 MG (COLACE) CAP PO SCH (09:21)
[2019-07-18] MEDS: NYSTATIN CREAM (MYCOSTATIN) 30 GM TUBE TP SCH ×2 (09:21→13:41)
[2019-07-18] MEDS: POLYETHYLENE GLYCOL 17 GM (MIRALAX) PACK PO SCH (09:22)
[2019-07-18] MEDS: SENNA W/DOCUSATE (SENOKOT S) TABLET PO SCH (09:22)
--- NOTE | 2019-07-18 09:22 | Occupational Ther Daily Note ---
OT Current Status-Daily Note Subjective Pt alert, lying in bed. Pt agrees to therapy. No c/o pain at this time. Pt did want to talk to physician about place on her neck. Mental Status/Objective Patient Orientation: Person, Place, Time, Situation ADL-Treatment Pt agrees to shower. Supine to EOB, mod I with HOB elevated. Pt ambulated to bathroom and transferred into shower, mod I. Pt completed shower using AD for energy conservation, mod I. Pt then completed grooming and oral care, mod I. Pt able to complete upper body dressing and footwear, mod I. Lower body dressing completed, mod I and multiple breaks due to decreased activity tolerance. Pt transferred to/from toilet, mod I, using grabbars, is able to clean self though tires pt out. After therapy, pt sitting in recliner with call light/phone in reach. All needs met in room. Therapy Code Descriptions/Definitions Functional [place] Measure: 0=Not Assessed/NA 4=Minimal Assistance 1=Total Assistance 5=Supervision or Setup 2=Maximal Assistance 6=Modified [place] 3=Moderate Assistance 7=Complete IndependenceSCALE: Activities may be completed with or without assistive devices. 1-Iyyaxtynmt-nxeeanj completes the activity by him/herself with no assistance from a helper. 5-Set-up or Clean-up Assistance-helper sets up or cleans up; patient completes activity. [place] assists only prior to or following the activity. 4-Supervision or Touching Assistance-helper provides verbal cues and/or touching/steadying and/or contact guard assistance as patient completes activity. Assistance may be provided throughout the activity or intermittently. 3-Partial/Moderate Assistance-helper does LESS THAN HALF the effort. [place] lifts, holds or supports trunk or limbs, but provides less than half the effort. 2-Substantial/Maximal Assistance-helper does MORE THAN HALF the effort. [place] lifts or holds trunk or limbs and provides more than half the effort. 4-Zpqblvywm-imsxeg does ALL the effort. Patient does none of the effort to complete the activity. Or, the assistance of 2 or more helpers is required for the patient to complete the activity. If activity was not attempted, code reason: 7-Patient Refused. 9-Not Applicable-not attempted and the patient did not perform the activity before the current illness, exacerbation or injury. 10-Not Attempted due to Environmental Limitations-(lack of equipment, weather restraints, etc.). 88-Not Attempted due to Medical Conditions or Safety Concerns. Eating (QC): 6 (Pt able to complete own set up, uses regular utensils to eat.) Oral Hygiene (QC): 6 Shower/Bathe Self (QC): 6 Upper Body Dressing (QC): 6 Lower Body Dressing (QC): 6 On/Off Footwear: 6 Toileting Hygiene (QC): 6 Toilet Transfer (QC): 6 OT Short Term Goals Short Term Goals Time Frame: Jul 12, 2019 Upper body dressin Lower body dressin Putting on/taking off footwear: 3 OT Analytics Manager Goals Analytics Manager Goals Time Frame: Jul 19, 2019 Eating (QC): 5 (met) Oral Hygiene (QC): 6 (met) Toileting Hygiene (QC): 6 (met) Shower/Bathe Self (QC): 3 (met) Upper Body Dressing (QC): 6 (met) Lower Body Dressing (QC): 3 (me) On/Off Footwear (QC): 6 (met) Additional Goals: 1-Demonstrate ADL Tasks, 2-Verbalize Understanding, 3- ImproveStrength/Arabella 1=Demonstrate adherence to instructed precautions during ADL tasks. 2=Patient will verbalize/demonstrate understanding of assistive devices/modifications for ADL. 3=Patient will improve strength/tolerance for activity to enable patient to perform ADL's. OT Education/Plan Problem List/Assessment Assessment: Decreased Activ Tolerance Discharge Recommendations Plan/Recommendations: Discharge/Goals Met (pt to discharge today) Therapy Discharge Recommendati: Home & Family Treatment Plan/Plan of Care Patient would benefit from OT for education, treatment and training to promote independence in ADL's, mobility, safety and/or upper extremity function for ADL's. Plan of Care: ADL Retraining, Caregiver Training Treatment Duration: Jul 19, 2019 Frequency: 2 times per month Estimated Hrs Per Day: 1.5 hours per day Agreement: Yes Rehab Potential: Fair Time/GCodes Start Time: 08:00 Stop Time: 09:00 Total Time Billed (hr/min): 60 Billed Treatment Time 1 visit-ADL 4 (60 min) MALIHA CATES Jul 18, 2019 09:22
--- NOTE | 2019-07-18 09:26 | Progress Note ---
Subjective Date Seen by a Provider: Jul 18, 2019 Time Seen by a Provider: 09:10 Subjective/Events-last exam PT REPORTS THAT SHE IS FEELING QUITE A BIT BETTER THAN ON ADMISSION TO THE HOSPITAL AND THEN INITIALLY ON INPATIENT REHAB. SHE REPORTS T HAT HER STRENGTH HAS IMPROVED SIGNIFICANTLY STAFF REPORTS THAT SHE HAS NEEDED OXYGEN AND THERE IS A PENDING OXYGEN STUDY TODAY PRIOR TO DISCHARGE, BUT THE ANTICIPATEION IS GOING TO BE THAT SHE NEEDS OXYGEN DUE TO HER PERSISTENT NEED. Objective Exam Last Set of Vital Signs Vital Signs Date Time Temp Pulse Resp B/P (MAP) Pulse Ox O2 Delivery O2 Flow Rate FiO2 07/18/19 08:15 90 Room Air 07/18/19 05:09 37.0 54 20 119/70 (86) 07/16/19 09:20 1.00 07/14/19 15:26 28 Capillary Refill : Less Than 3 SecondsLess Than 3 Seconds I&O Intake and Output 07/18/19 00:00 Intake Total 1220 ml Balance 1220 ml Intake Oral 1220 ml # Voids 7 # Bowel Movements 1 General: Alert, Oriented X3, Cooperative, No Acute Distress HEENT: Atraumatic, PERRLA Neck: Supple Lungs: Clear to Auscultation Heart: Regular Rate Abdomen: Normal Bowel Sounds, Soft Extremities: No Clubbing, No Cyanosis Skin: No Breakdown Neuro: Strength at 5/5 X4 Ext Psych/Mental Status: Mental Status NL, Mood NL Results Lab Laboratory Tests 07/17/19 09:27: Glucometer 157H 07/17/19 14:27: Glucometer 310H 07/17/19 20:33: Glucometer 163H 07/18/19 06:20: White Blood Count 4.5, Red Blood Count 3.82L, Hemoglobin 12.8, Hematocrit 38, Mean Corpuscular Volume 99, Mean Corpuscular Hemoglobin 34, Mean Corpuscular Hemoglobin Concent 34, Red Cell Distribution Width 12.1, Platelet Count 123L, Mean Platelet Volume 10.0, Neutrophils (%) (Auto) 60, Lymphocytes (%) (Auto) 25, Monocytes (%) (Auto) 14H, Eosinophils (%) (Auto) 0, Basophils (%) (Auto) 0, Neutrophils # (Auto) 2.7, Lymphocytes # (Auto) 1.2, Monocytes # (Auto) 0.6, Eosinophils # (Auto) 0.0, Basophils # (Auto) 0.0, Sodium Level 136, Potassium Level 3.6, Chloride Level 102, Carbon Dioxide Level 26, Anion Gap 8, Blood Urea Nitrogen 13, Creatinine 0.69, Estimat Glomerular Filtration Rate > 60, BUN/Creatinine Ratio 19, Glucose Level 76, Calcium Level 8.7, Corrected Calcium 9.4, Total Bilirubin 0.6, Aspartate Amino Transf (AST/SGOT) 11, Alanine Aminotransferase (ALT/SGPT) 18, Alkaline Phosphatase 44, Total Protein 5.1L, Albumin 3.1L 07/18/19 06:35: Glucometer 67L Assessment/Plan Assessment/Plan Assess & Plan/Chief Complaint PNEUMONIA GENERALIZED WEAKNESS HYPERTENSION DIABETES MELLITUS OSTEOARTHRITIS CHRONIC BACK PAIN HYPERLIPIDEMIA PNEUMONIA RESOLVED COPD WITH ACUTE EXACERBATION RESOLVED - PT WILL REQUIRE OXYGEN OUTPATIENT - OXYGEN STUDY PENDING ANTICIPATE PT TO NEED OXYGEN AT 2 LITERS [place]. HYPERTENSION HOME MEDICATION REGIMEN RESTARTED, CONTINUE TO MONITOR BLOOD PRESSURE CLOSELY AT HOME DIABETES MELLITUS RESTART INSULIN THERAPY, MONITOR BLOOD GLUCOSE READINGS CLOSELY, DIABETIC DIET INITIATED - PT TO CONTINUE WITH DIABETIC DIET ON DISCHARGE, BRING IN FSBS TO OFFICE IN 1 WK AT HER FOLLOW UP APPT OSTEOARTHRITIS WITH WEAKNESS AND BACK PAIN ADMITTED TO INPATIENT REHAB FOR PHYSICAL THERAPY, OCCUPATIONAL THERAPY WITH IMPROVED SYMPTOMS - PLANNING ON THERAPY OUTPATIENT. HYPERLIPIDEMIA RESTARTED STATIN THERAPY Clinical Quality Measures DVT/VTE Risk/Contraindication: Risk Factor Score Per Nursin RFS Level Per Nursing on Admit: 3=High KARY MEHTA MD Jul 18, 2019 09:25
--- NOTE | 2019-07-18 10:20 | Physical Therapy Daily Note ---
PT Daily Note-Current Subjective Patient in recliner pre tx, agrees to PT, has 8-9/10 pain in low back. Appearance Patient in recliner post tx with nurse call, phone, tray, all needs met. Mental Status Patient Orientation: Person, Place, Situation Transfers SCALE: Activities may be completed with or without assistive devices. 7-Jnlgqxpjyr-mpvdzmm completes the activity by him/herself with no assistance from a helper. 5-Set-up or Clean-up Assistance-helper sets up or cleans up; patient completes activity. [place] assists only prior to or following the activity. 4-Supervision or Touching Assistance-helper provides verbal cues and/or t ouching/steadying and/or contact guard assistance as patient completes activity. Assistance may be provided throughout the activity or intermittently. 3-Partial/Moderate Assistance-helper does LESS THAN HALF the effort. [place] lifts, holds or supports trunk or limbs, but provides less than half the effort. 2-Substantial/Maximal Assistance-helper does MORE THAN HALF the effort. [place] lifts or holds trunk or limbs and provides more than half the effort. 3-Qydlrsacb-xvinlt does ALL the effort. Patient does none of the effort to complete the activity. Or, the assistance of 2 or more helpers is required for the patient to complete the activity. If activity was not attempted, code reason: 7-Patient Refused. 9-Not Applicable-not attempted and the patient did not perform the activity before the current illness, exacerbation or injury. 10-Not Attempted due to Environmental Limitations-(lack of equipment, weather restraints, etc.). 88-Not Attempted due to Medical Conditions or Safety Concerns. Roll Left & Right (QC): 6 Sit to Lying (QC): 6 Lying to Sitting/Side of Bed(Q: 6 Sit to Stand (QC): 6 Chair/Gtc-mw-Oqqhy Xfer(QC): 6 Toilet Transfer (QC): 6 Car Transfer (QC): 6 Weight Bearing Full Weight Bearing Full Weight Bearing Gait Training Distance: 60'x2 Walk 10 feet (QC): 6 Walk 50 ft with 2 Turns(QC): 6 Walk 150 ft (QC): 88 Walking 10ft/uneven surface-QC: 6 Gait Assistive Device: FWW slow but steady ambulation Wheelchair Training Does the Pt Use a Wheelchair?: No Stair Training #of Steps: 1 1 Step (curb) (QC): 4 4 Steps (QC): 88 12 Steps (QC): 88 Stairs: Pattern: Step to CGA Balance Picking up an Object (QC): 88 (NT due to low back pain) Treatments bed mobility and transfers, ambulation, stair training Assessment Current Status: Fair Progress independent with mobility using a rolling walker PT Short Term Goals Short Term Goals Time Frame: Jul 12, 2019 Roll Left & Right: 6 Sit to lyin Lying to sitting on side of be: 6 Sit to stand: 4 Chair/dek-nj-tkmss transfer: 4 Toilet transfer: 4 Walk 10 feet: 4 Walk 50 feet with two turns: 4 PT Correction Goals Correction Goals PT Correction Goals Time Frame: Jul 26, 2019 Roll Left & Right (QC): 6 Sit to Lying (QC): 6 Lying-Sitting on Side/Bed(QC): 6 Sit to Stand (QC): 6 Chair/Phi-ao-Dniua Xfer(QC): 6 Toilet Transfer (QC): 6 Car Transfer (QC): 6 Walk 10 feet (QC): 6 Walk 50ft with 2 Turns (QC): 6 Walk 150 ft (QC): 6 Walking 10ft on Uneven Surface: 6 1 Step (curb) (QC): 4 4 Steps (QC): 4 PT Plan Problem List Problem List: Activity Tolerance, Functional Strength, Safety, Balance, Gait, Transfer Treatment/Plan Treatment Plan: Continue Plan of Care Treatment Plan: Bed Mobility, Concurrent Therapy, Education, Functional Activity [place], Functional Strength, Group Therapy, Gait, Safety, Therapeutic Exercise, Transfers Treatment Duration: Jul 26, 2019 Frequency: At least 5 of 7 days/Wk (IRF) Estimated Hrs Per Day: 1.5 hours per day Patient and/or Family Agrees t: Yes Safety Risks/Education Patient Education: Gait Training, Transfer Techniques, Steps, Correct Positioning, Safety Issues Teaching Recipient: Patient Teaching Methods: Demonstration, Discussion Response to Teaching: Reinforcement Needed Time/GCodes Time In: 1000 Time Out: 1015 Total Billed Treatment Time: 15 Total Billed Treatment 1 visit FA 15' FRANCISCA MAHONEY PT Jul 18, 2019 10:20
--- NOTE | 2019-07-18 10:25 | Therapy Team Discharge Summary ---
Therapy Discharge Summary Discharge Recommendations Date of Discharge Physical Therapy Patient came to rehab with COPD/pneumonia. Upon evaluation patient performed bed mobility with independence, supine <-> sit with independence, sit <-> stand with min assist (for low surfaces), transfers with CGA, toilet transfer with CGA, ambulated 10' with a rolling walker with CGA, no stairs. Patient has been performing bed mobility and transfer training, balance and endurance training, functional strengthening, stair training, gait training, and education. 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 Now, patient performs bed mobility and transfers with independence, car transfer with independence, ambulates 60' with a rolling walker with independence (including 50' with at least 2 turns of 90 degrees and 10' over an uneven surface), and can go up and down 1 step using a rolling wal ker with CGA. Patient is discharging from this facility today and will be discharged from PT at this time. Occupational Therapy Decreased Activ Tolerance PT Lead Setter Goals Usp Goals PT Usp Goals Time Frame: Jul 26, 2019 Roll Left to Right (QC): 6 Sit to Lying (QC): 6 Lying-Sitting on Side/Bed(QC): 6 Sit to Stand (QC): 6 Chair/Ymb-ro-Ixqww Xfer(QC): 6 Car Transfer (QC): 6 Walk 10 feet (QC): 6 Walk 10ft-Uneven Surface(QC): 6 Walk 50ft with 2 Turns (QC): 6 Walk 150 ft (QC): 6 1 Step (curb) (QC): 4 4 Steps (QC): 4 OT Lead Setter Goals Usp Goals Time Frame: Jul 19, 2019 Eating (QC): 5 (met) Oral Hygiene (QC): 6 (met) Shower/Bathe Self (QC): 3 (met) Upper Body Dressing (QC): 6 (met) Lower Body Dressing (QC): 3 (me) On/Off Footwear (QC): 6 (met) Toileting Hygiene (QC): 6 (met) Toilet/Commode Transfer (QC): 6 Additional Goals: 1-Demonstrate ADL Tasks, 2-Verbalize Understanding, 3- ImproveStrength/[place] 1=Demonstrate adherence to instructed precautions during ADL tasks. 2=Patient will verbalize/demonstrate understanding of assistive devices/modifications for ADL. 3=Patient will improve strength/tolerance for activity to enable patient to perform ADL's. Speech Usp Goals Usp Goals Patient will maintain adequate nutrition/hydration via safe and effective swallow function. FRANCISCA MAHONEY PT Jul 18, 2019 10:25
--- NOTE | 2019-07-18 11:51 | NUR ---
PT FOUND ON ROOM AIR @ REST WITH SPO2 88%. REPLACED O2 @ 2 LPM. SPO2 INCREASED TO 93%. Addendum: 07/18/19 at 1159 by ROD LAGUNAS RT Amended: Links added.
--- NOTE | 2019-07-18 12:03 | Speech Therapy Daily Note ---
Speech Daily Progress Note Subjective Date Seen by Provider: Jul 18, 2019 Time Seen by Provider: 10:45 Patient was upbeat and positive for all therapy tasks. Patient is discharging from the ARU today and returning home. Patient reports that she is very happy to be returning home. Objective Patient completed compensatory strategies for safe and effective oral intake with 95% accuracy and minimal cues. Assessment Assessment Current Status: Excellent Progress Treatment Plan Discontinue ST, Goals Met Speech Short Term Goals Short Term Goals Short Term Goals 1. Patient will tolerate least restrictive diet with s/s of aspiration at 90%. 2. Patient will utilize compensatory strategies as trained at 90% with minimal cues. Speech Designer Architect Goals [facility] Goals Patient will maintain adequate nutrition/hydration via safe and effective swallow function. Speech-Plan Patient/Family Goals Patient/Family Goals: Patient is returning home today. Treatment Plan Speech Therapy Treatment Plan: Discontinue ST, Goals Met Treatment Duration: Jul 18, 2019 Frequency: 5 times per week Estimated Hrs Per Day: .5 hour per day Rehab Potential: Fair Barriers to Learning: None; deficits have been resolved. Pt/Family Agrees to Plan: Yes Safety Risks/Education Teaching Recipient: Patient Teaching Methods: Discussion Response to Teaching: Verbalize Understanding Education Topics Provided: Patient was provided education on continued safe oral intake. Time Speech Therapy Time In: 10:45 Speech Therapy Time Out: 10:55 Total Billed Time: 10 Billed Treatment Time 1, DYST No QUALITY CODES EXPRESSION OF IDEAS/WANTS: 4 UNDERSTANDING VERBAL CONTENT: 4 BRIEF INTERVIEW MENTAL STATUS: YES REPETITION OF 3 WORDS: YES TEMPORAL ORIENTATION OF YEAR:CORRECT, MONTH:CORRECT, DAY: CORRECT RECALL OF SOCK: YES, COLOR: YES, BED: YES MEMORY/RECALL ABILITY OF CURRENT SEASON, STAFF NAMES, ROOM NUMBER, AND THAT SHE IS IN THE HOSPITAL [facility] Jul 18, 2019 12:03
--- NOTE | 2019-07-18 13:23 | NUR ---
CM/SS DISCHARGE DME: New home O2 coordinated through patient preferred agency in service area, [facility]. Agency will deliver portable concentrator to patient's hospital room and will partner with her and her spouse for home set up. OP PT: Finalized with [facility]. Patient updated and informed that first session appointment will print off on her discharge instructions. Patient will self arrange her transport home with family. Unit RN aware.
[2019-07-18 15:00] VITALS: BP 127/72
--- NOTE | 2019-07-19 08:00 | Therapy Team Discharge Summary ---
Therapy Discharge Summary Discharge Recommendations Date of Discharge Jul 18, 2019 at 15:00 Occupational Therapy Pt admitted to ARU with dx of COPD/ PNA. Pt required s/u for eating and oral h ygiene, was mod A UB dress, max A LB dress, TD footwear, and max A toilet hygiene. Pt and OT worked towards functional IND within ADLs, higher endurance/ UB strength, and safety within home/ use of AE. Pt limited by fatigue/ respiratory endurance. Pt met all LTG's upon d/c, mod I within all ADL areas. Pt d/c's from ARU and from OT services at this time. Decreased Activ Tolerance PT Want Ad Clerk Goals [facility] Goals PT [facility] Goals Time Frame: Jul 26, 2019 Roll Left to Right (QC): 6 Sit to Lying (QC): 6 Lying-Sitting on Side/Bed(QC): 6 Sit to Stand (QC): 6 Chair/Xab-cj-Yljxu Xfer(QC): 6 Car Transfer (QC): 6 Walk 10 feet (QC): 6 Walk 10ft-Uneven Surface(QC): 6 Walk 50ft with 2 Turns (QC): 6 Walk 150 ft (QC): 6 1 Step (curb) (QC): 4 4 Steps (QC): 4 OT Want Ad Clerk Goals Want Ad Clerk Goals Time Frame: Jul 19, 2019 Eating (QC): 5 (met) Oral Hygiene (QC): 6 (met) Shower/Bathe Self (QC): 3 (met) Upper Body Dressing (QC): 6 (met) Lower Body Dressing (QC): 3 (me) On/Off Footwear (QC): 6 (met) Toileting Hygiene (QC): 6 (met) Toilet/Commode Transfer (QC): 6 Additional Goals: 1-Demonstrate ADL Tasks, 2-Verbalize Understanding, 3- ImproveStrength/Arabella 1=Demonstrate adherence to instructed precautions during ADL tasks. 2=Patient will verbalize/demonstrate understanding of assistive devices/modifications for ADL. 3=Patient will improve strength/tolerance for activity to enable patient to perform ADL's. Speech Want Ad Clerk Goals Want Ad Clerk Goals Patient will maintain adequate nutrition/hydration via safe and effective swallow function. PREMA RODRIGUEZ OTR Jul 19, 2019 08:00
== END 2019-07-18 15:00 | disposition home or self-care (01) | DRG 91 ==
PROVIDERS: ADMIT Internal Medicine; ATTEND Internal Medicine
DX: G72.89 Other specified myopathies (principal); J18.1 Lobar pneumonia, unspecified organism; J43.9 Emphysema, unspecified; R09.02 Hypoxemia; B37.0 Candidal stomatitis; E11.40 Type 2 diabetes mellitus with diabetic neuropathy, unspecified; E87.70 Fluid overload, unspecified; I25.10 Atherosclerotic heart disease of native coronary artery without angina pectoris; E11.649 Type 2 diabetes mellitus with hypoglycemia without coma; I10 Essential (primary) hypertension; K59.00 Constipation, unspecified; B37.2 Candidiasis of skin and nail; E78.00 Pure hypercholesterolemia, unspecified; M19.91 Primary osteoarthritis, unspecified site; M54.9 Dorsalgia, unspecified; Z79.4 Long term (current) use of insulin; Z87.891 Personal history of nicotine dependence; Z90.710 Acquired absence of both cervix and uterus; Z90.722 Acquired absence of ovaries, bilateral; Z90.49 Acquired absence of other specified parts of digestive tract; Z90.89 Acquired absence of other organs
CPT/HCPCS: 36415; 71046; 80053; 82565; 82962; 83735; 85025; 85027; 94640; 94664; 94760; 94761

== ENCOUNTER 2020-01-16 11:19 | Emergency (ER) | payer MEDICARE ==
[~2020-01-16] VITALS: Ht 162.5 cm; Wt 99.7 kg
[~2020-01-16 11:19] MED LIST changes: +ACHYD1T PO; -HYDR-3820 PO; +MICO90PO TOP; -MONT10TA24 PO; +MONT10TA26 PO; +NYST15CR TP; +PRED10TA22 PO
[2020-01-16] MEDS ORDERED: PROMETHAZINE INJ 25 MG/ML (PHENERGAN) AMP IVP ONE (11:30)
--- NOTE | 2020-01-16 11:33 | ED General ---
General Chief Complaint: Abdominal/GI Problems Stated Complaint: NAUSEA/DIZZINESS Source of Information: Patient Exam Limitations: No Limitations History of Present Illness Date Seen by Provider: Jan 16, 2020 Time Seen by Provider: 11:29 Initial Comments To ER with nausea and dizziness onset this morning. Dizziness is worsened by movement. Timing/Duration: 1-2 Days Severity: Moderate Allergies and Home Medications Allergies Coded Allergies: Sulfa (Sulfonamide Antibiotics) (Unverified Allergy, Unknown, HIVES, SOB, 10/27/06) morphine (Unverified Allergy, Unknown, Pt has received Lortab in the pas, 07/05/19) propoxyphene (Unverified Allergy, Unknown, UNKNOWN, 10/27/06) erythromycin base (Unverified Adverse Reaction, Unknown, SICK TO HER STOMACH, CRAMPS, VOMITING, 10/27/06) Home Medications Albuterol Sulfate 2.5 Mg/3 Ml Vial.neb, 2.5 MG IH QID PRN for SHORTNESS OF BREATH, (Reported) Albuterol Sulfate 18 Gm Hfa.aer.ad, 2 PUFF INH Q4H PRN for SHORTNESS OF BREATH, (Reported) Amlodipine Besylate 5 Mg Tablet, 5 MG PO DAILY, (Reported) Aspirin 81 Mg Tablet.dr, 81 MG PO DAILY, (Reported) Atenolol 25 Mg Tablet, 25 MG PO HS, (Reported) Cholecalciferol (Vitamin D3) 2,000 Unit Tablet, 2,000 UNIT PO DAILY, (Reported) Diphenhydramine HCl 25 Mg Capsule, 50 MG PO HS, (Reported) TAKES 2 (25MG) CAPSULES Furosemide 20 Mg Tablet, 20 MG PO DAILY, (Reported) Hydrochlorothiazide 25 Mg Tablet, 25 MG PO HS, (Reported) Hydrocodone Bit/Acetaminophen 1 Each Tablet, 1 TAB PO Q6H PRN for PAIN-MODERATE, (Reported) Insulin Aspart 100 Unit/1 Ml Susp, 20 UNIT SQ DAILY, (Reported) Insulin Determir 1,000 Units/10 Ml Soln, 10 UNITS SC DAILY, (Reported) Insulin Determir 1,000 Units/10 Ml Soln, 15-20 UNITS SQ HS, (Reported) Losartan Potassium 25 Mg Tablet, 25 MG PO DAILY, (Reported) Miconazole Nitrate 90 Gm Powder, 0 GM TOP BID Prescribed by: CHELY ESPARZA on 07/18/19 0835 Nystatin 15 Gm Cream..g., 0 GM TP TID Prescribed by: CHELY ESPARZA on 07/18/19 0835 Pantoprazole Sodium 40 Mg Tablet.dr, 40 MG PO DAILY, (Reported) Prednisone 10 Mg Tab.ds.pk, 10 MG PO DAILY Take 4 tabs(40mg)daily,decrease by 1 tab(10MG)daily. Prescribed by: CHELY ESPARZA on 07/18/19 0835 Promethazine HCl/Codeine 5 Ml Syrup, 5-10 ML PO Q6H PRN for COUGH, (Reported) Ranolazine 1,000 Mg Tab.er.12h, 1,000 MG PO BID, (Reported) Rosuvastatin Calcium 10 Mg Tablet, 10 MG PO HS, (Reported) Spironolactone 25 Mg Tablet, 25 MG PO DAILY, (Reported) Patient Home Medication List Home Medication List Reviewed: Yes Review of Systems Review of Systems Constitutional: see HPI EENTM: see HPI Respiratory: no symptoms reported Cardiovascular: no symptoms reported Genitourinary: no symptoms reported Musculoskeletal: no symptoms reported Skin: no symptoms reported Psychiatric/Neurological: No Symptoms Reported Hematologic/Lymphatic: No Symptoms Reported Immunological/Allergic: no symptoms reported Past Zfxyojs-Mkaqjh-Hyaqpg Hx Patient Social History Type Used: Cigarettes Former Smoker, Quit: Mar 27, 1988 2nd Hand Smoke Exposure: No Recent Hopitalizations: Yes Immunizations Up To Date Tetanus Booster (TDap): Unknown PED Vaccines UTD: Yes Date of Pneumonia Vaccine: November 01, 2008 Date of Influenza Vaccine: Apr 12, 2019 Seasonal Allergies Seasonal Allergies: No Past Medical History Surgeries: Yes Adenoidectomy, Appendectomy, Cardiac, Eye Surgery, Gallbladder, Hysterectomy, Oophorectomy, Orthopedic, Tonsillectomy Respiratory: Yes Asthma, COPD Cardiac: Yes Coronary Artery Disease, High Cholesterol, Hypertension Neurological: Yes (PERIPHERAL NEUROPATHY) Neuropathy Reproductive Disorders: Yes (ENDOMETRIAL CANCER--S/P HYST/BSO) 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 No Pertinent Family Hx Physical Exam Vital Signs Vital Signs - First Documented 01/16/20 11:19 Temp 36.2 Pulse 65 Resp 20 B/P (MAP) 142/65 (90) Pulse Ox 94 O2 Delivery Nasal Cannula O2 Flow Rate 2.00 Capillary Refill : Height, Weight, BMI Height: 5'4.00" Weight: 230lbs. 0.0oz. 104.658019gl; 39.40 BMI Method:Stated General Appearance: No Apparent Distress, WD/WN Eyes: Bilateral Eye Normal Inspection, Bilateral Eye PERRL, Bilateral Eye EOMI HEENT: PERRL/EOMI, TMs Normal Respiratory: No Accessory Muscle Use, No Respiratory Distress Gastrointestinal: Non Tender, Soft Extremity: Normal Capillary Refill, Normal Inspection Neurologic/Psychiatric: Alert, Oriented x3 Skin: Normal Color, Warm/Dry Progress/Results/Core Measures Suspected Sepsis SIRS Temperature: Pulse: Respiratory Rate: Laboratory Tests 01/16/20 11:25: White Blood Count 8.5 Blood Pressure / Mean: Laboratory Tests 01/16/20 11:25: Creatinine 0.86, Platelet Count 135 Results/Orders Lab Results Laboratory Tests Test 01/16/20 11:25 01/16/20 12:20 Range/Units White Blood Count 8.5 4.3-11.0 10^3/uL Red Blood Count 4.82 4.35-5.85 10^6/uL Hemoglobin 16.1 H 11.5-16.0 G/DL Hematocrit 45 35-52 % Mean Corpuscular Volume 94 80-99 FL Mean Corpuscular Hemoglobin 33 25-34 PG Mean Corpuscular Hemoglobin Concent 36 32-36 G/DL Red Cell Distribution Width 11.8 10.0-14.5 % Platelet Count 135 130-400 10^3/uL Mean Platelet Volume 9.9 7.4-10.4 FL Neutrophils (%) (Auto) 68 42-75 % Lymphocytes (%) (Auto) 20 12-44 % Monocytes (%) (Auto) 10 0-12 % Eosinophils (%) (Auto) 2 0-10 % Basophils (%) (Auto) 0 0-10 % Neutrophils # (Auto) 5.8 1.8-7.8 X 10^3 Lymphocytes # (Auto) 1.7 1.0-4.0 X 10^3 Monocytes # (Auto) 0.9 0.0-1.0 X 10^3 Eosinophils # (Auto) 0.2 0.0-0.3 10^3/uL Basophils # (Auto) 0.0 0.0-0.1 10^3/uL D-Dimer 0.56 H 0.00-0.49 UG/ML Sodium Level 141 135-145 MMOL/L Potassium Level 3.3 L 3.6-5.0 MMOL/L Chloride Level 102 98-107 MMOL/L Carbon Dioxide Level 27 21-32 MMOL/L Anion Gap 12 5-14 MMOL/L Blood Urea Nitrogen 17 7-18 MG/DL Creatinine 0.86 0.60-1.30 MG/DL Estimat Glomerular Filtration Rate > 60 BUN/Creatinine Ratio 20 Glucose Level 274 H 70-105 MG/DL Calcium Level 8.9 8.5-10.1 MG/DL Troponin I < 0.028 <0.028 NG/ML Urine Color YELLOW Urine Clarity CLEAR Urine pH 5.5 5-9 Urine Specific [place] >=1.030 1.016-1.022 Urine Protein TRACE H NEGATIVE Urine Glucose (UA) 3+ H NEGATIVE Urine Ketones TRACE H NEGATIVE Urine Nitrite NEGATIVE NEGATIVE Urine Bilirubin 1+ H NEGATIVE Urine Urobilinogen 1.0 < = 1.0 MG/DL Urine Leukocyte Esterase NEGATIVE NEGATIVE Urine RBC (Auto) NEGATIVE NEGATIVE Urine RBC 0-2 /HPF Urine WBC 0-2 /HPF Urine Squamous Epithelial Cells 10-25 H /HPF Urine Crystals PRESENT H /LPF Urine Calcium Oxalate Crystals RARE H /LPF Urine Bacteria TRACE /HPF Urine Casts NONE /LPF Urine Mucus SMALL H /LPF Urine Culture Indicated NO My Orders Orders - BONITA NEGRON APRN Cbc With Automated Diff (01/16/20 11:25) Basic Metabolic Panel (01/16/20 11:25) Troponin I (01/16/20 11:25) Ekg Tracing (01/16/20 11:25) Promethazine Injection (Phenergan Injec (01/16/20 11:30) Fibrin Degradation Products (01/16/20 11:27) Ua Culture If Indicated (01/16/20 11:33) Medications Given in ED Current Medications Medications Dose Ordered Sig/Deepika Route Start Time Stop Time Status Last Admin Dose Admin Promethazine HCl 12.5 mg ONCE ONCE IVP 01/16/20 11:30 01/16/20 11:31 DC 01/16/20 11:36 12.5 MG Vital Signs/I&O 01/16/20 11:19 Temp 36.2 Pulse 65 Resp 20 B/P (MAP) 142/65 (90) Pulse Ox 94 O2 Delivery Nasal Cannula O2 Flow Rate 2.00 Capillary Refill : Departure Impression Primary Impression: Vertigo Disposition: HOME, SELF-CARE Condition: Stable Departure-Patient Inst. Decision time for Depature: 12:48 Referrals: KARY MEHTA MD (PCP) Primary Care Physician Patient Instructions: Vertigo (a Type of Dizziness) Scripts Meclizine HCl (Meclizine HCl) 25 Mg Tablet 25 MG PO TID PRN for DIZZINESS, #14 TAB Prov: BONITA NEGRON APRN 01/16/20 Ondansetron (Ondansetron Odt) 4 Mg Tab.rapdis 4 MG PO Q6H PRN for NAUSEA/VOMITING, #10 TAB Prov: BONITA NEGRON APRN 01/16/20 BONITA NEGRON APRN Jan 16, 2020 11:33
[2020-01-16 11:38] LABS: BASOPHILS % (AUTO) 0 % (0-10); EOSINOPHILS # (AUTO) 0.2 10^3/uL (0.0-0.3); EOSINOPHILS % (AUTO) 2 % (0-10); HEMATOCRIT 45 % (35-52); HEMOGLOBIN 16.1 G/DL (11.5-16.0); LYMPHOCYTES # (AUTO) 1.7 X 10^3 (1.0-4.0); LYMPHOCYTES % (AUTO) 20 % (12-44); MEAN CORPUSCULAR HEMOGLOBIN 33 PG (25-34); MEAN CORPUSCULAR HGB CONC 36 G/DL (32-36); MEAN CORPUSCULAR VOLUME 94 FL (80-99); MEAN PLATELET VOLUME 9.9 FL (7.4-10.4); MONOCYTES # (AUTO) 0.9 X 10^3 (0.0-1.0); MONOCYTES % (AUTO) 10 % (0-12); NEUTROPHILS # (AUTO) 5.8 X 10^3 (1.8-7.8); NEUTROPHILS % (AUTO) 68 % (42-75); PLATELET COUNT 135 10^3/uL (130-400); RED CELL DISTRIBUTION WIDTH 11.8 % (10.0-14.5); WHITE BLOOD COUNT 8.5 10^3/uL (4.3-11.0)
[2020-01-16 11:53] LABS: BUN/CREATININE RATIO 20; CALCIUM 8.9 MG/DL (8.5-10.1); CARBON DIOXIDE 27 MMOL/L (21-32); CHLORIDE 102 MMOL/L (98-107); CREATININE SERUM 0.86 MG/DL (0.60-1.30); GFR ESTIMATED > 60; GLUCOSE 274 MG/DL (70-105); POTASSIUM 3.3 MMOL/L (3.6-5.0); SODIUM 141 MMOL/L (135-145)
--- NOTE | 2020-01-16 12:05 | NUR ---
Spoke with pt's via phone regarding plan of care.
[2020-01-16 12:34] LABS: CLARITY,URINE CLEAR; COLOR,URINE YELLOW; GLUCOSE, URINE (UA) 3+ (NEGATIVE); KETONES,URINE TRACE (NEGATIVE); LEUKOCYTE ESTERASE ,URINE NEGATIVE (NEGATIVE); NITRITE,URINE NEGATIVE (NEGATIVE); PH,URINE 5.5 (5-9); PROTEIN,URINE TRACE (NEGATIVE)
[2020-01-16 12:44] LABS: BILIRUBIN,URINE 1+ (NEGATIVE)
[2020-01-16 12:45] LABS: BACTERIA,URINE TRACE /HPF; CALCIUM OXALATE CRYSTALS,UR RARE /LPF; RBC,URINE 0-2 /HPF; WBC,URINE 0-2 /HPF
[2020-01-16] MEDS ORDERED: ONDA4TAB11 PO (12:50)
[2020-01-16] MEDS ORDERED: MECL-149 PO (12:50)
--- NOTE | 2020-01-16 12:56 | NUR ---
Spoke to pt's re: discharge plan.
[2020-01-16 12:59] VITALS: BP 140/80
--- OUTSIDE RECORDS SUMMARY | 2020-01-16 13:03 | XMS REPORT | Clinical Summary ---
Author Author [facility] Organization [facility] Address Unknown Phone Unavailable Care Team Providers Care Observatory Director Name Role Phone Matthew Burch MD Unavailable Shanthi Clay MD PCP Keya De La Paz MD 21 Source Comments Some departments are not documenting in the electronic medical record. If you d o not see the information that you expected, contact Release of Information in [facility] [employer] Information Management department at [phone] for further assistan ce in locating additional records.[facility] Allergies Comments Active Allergy Reactions Severity Noted Date Erythromycin UNKNOWN Low 12/30/2016 Allergy recorded in SMS: Morphine~Reactions: ITCHING Morphine 09/03/2006 Allergy recorded in SMS: DARVON~Reactions: VOMITING Propoxyphene 09/03/2006 Allergy recorded in SMS: Sulfa~Reactions: HIVES Sulfa (Sulfonamide 09/03/2006 Antibiotics) Medications End Date Status Medication Sig Dispensed Refills Start Date Active atenolol (TENORMIN) 50 mg Take 50 mg by 0 tablet mouth daily. Active hydrochlorothiazide Take 25 mg by 0 (HYDRODIURIL) 25 mg mouth daily. tablet Active diphenhydrAMINE Take 50 mg by 0 (BENADRYL) 50 mg capsule mouth every 6 hours as needed. Active insulin aspart (NOVOLOG) Inject 17 0 100 unit/mL injection Units into area(s) as directed three times daily with meals. Active insulin detemir(+) Inject under 0 (LEVEMIR FLEXTOUCH) 100 the skin unit/mL (3 mL) injection twice daily. pen Inject 10 units every morning and 50 units every evening Active aspirin 81 mg chewable Take 81 mg by 0 tablet mouth daily. Active cholecalciferol (VITAMIN Take 2 Tabs 90 Tab 3 0 D-3) 1,000 units tablet by mouth 6 daily. Active HYDROcodone/acetaminophen Take 1 Tab by 0 (+) (NORCO) 10/325 mg mouth twice tabletIndications: pain daily Indications: PAIN Active rosuvastatin (CRESTOR) 10 Take 10 mg by 0 mg tablet mouth daily. Active montelukast (SINGULAIR) Take 10 mg by 0 10 mg tablet mouth as Needed. Active cetirizine (ZYRTEC) 10 mg Take 10 mg by 0 tablet mouth as Needed. Active furosemide (LASIX) 20 mg Take 20 mg by 0 tablet mouth every morning. Active nitroglycerin (NITROSTAT) Place 0.4 mg 0 0.4 mg tablet under tongue every 5 minutes as needed for Chest Pain. Max of 3 tablets, call 911. Active albuterol 0.083% Inhale 1 Vial 0 (PROVENTIL; VENTOLIN) 2.5 solution by mg /3 mL (0.083 %) nebulizer as nebulizer solution directed every 6 hours as needed for Wheezing or Shortness of Breath. Active [place]-3 Acid Ethyl Esters Take 1 g by 0 1 gram cap mouth three times daily. Active amLODIPine (NORVASC) 5 mg Take 5 mg by 0 tablet mouth daily. Active losartan (COZAAR) 25 mg Take 25 mg by 0 tablet mouth daily. Active ranolazine ER (RANEXA) Take 1 tablet 180 tablet 3 1 1,000 mg by mouth 7 tabletIndications: twice daily. Coronary artery disease involving [place] coronary artery of [place] heart, angina presence unspecified Active albuterol (VENTOLIN HFA) Inhale 2 0 90 mcg/actuation inhaler puffs by mouth into the lungs every 6 hours as needed for Wheezing or Shortness of Breath. Shake well before use. Active spironolactone Take 1 tablet 90 tablet 3 (ALDACTONE) 25 mg tablet by mouth 7 daily. Take with food. Active Problems Problem Noted Date Chest pain due to myocardial ischemia 03/23/2017 Coronary artery disease of [place] artery of [place] he art with stable angina 12/30/2016 pectoris Overview: 07/23/16: Left heart cath ([facility]ia [facility] in [place], [place]) - calcified coronary system overall with total occl usion of the mid LAD, reconstructed by collaterals from the right coronary system. Otherwise mild coronary artery disease. Normal LV size with nor mal contractility anterior wall is julia normally with estimated EF of 60%. Hypertensive changes in the thoracic and abdominal aorta with calci fication at the origin of the right carotid artery. Some tortuosity in the iliac artery, no obstructive disease. 05/28/16: Lexiscan myoview stress test ([facility]ia [facility]) - breast attenuation affecting the quality of the images wit h mild ischemia at the mid to apical anterior wall. Normal LV size with norm al contractility. Calculated EF 65%. 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 returning feb 09 to attempt retrograde approach 03/23/17 - unsuccessful attempt at PCI o f BEAD MACHINE OPERATOR of LAD. Started on Ranexa Essential hypertension Hyperlipidemia Insulin dependent diabetes mellitus Social History Date Tobacco Use Types Packs/Day Years Used 06/15/1960 - 06/15/1987 Former Smoker Cigarettes Smokeless Tobacco: Never Used Sex Assigned at Date Recorded Not on file Industry Job Start Date Occupation Not on file Not on file Not on file Travel End Travel History Travel Start No recent travel history available. 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 Body Mass Index Plan of Treatment Health Maintenance Due Date Last Done Comments MEDICARE ANNUAL WELLNESS 1941 VISIT DILATED EYE EXAM 1959 DTAP/TDAP VACCINES (1 - 1959 Tdap) FOOT EXAM 1959 HBA1C 1959 MICROALBUMIN 1959 PHYSICAL (COMPREHENSIVE) 1959 EXAM SHINGLES RECOMBINANT 1991 VACCINE (1 of 2) OSTEOPOROSIS 2006 SCREENING/MONITORING PNEUMONIA (PPSV23) 2006 VACCINE (1 of 1 - PPSV23) INFLUENZA VACCINE 03/15/2020 04/19/2004, 04/10/2000, 05/02/1993 HEPATITIS C SCREENING Completed 08/28/2015 Results Not on filefrom Last 3 Months Insurance Type Payer Benefit Subscriber ID Effective Phone Address Plan / Dates Group Medicare MEDICARE MEDICARE xxxxxxxxxx 2006-P PART A AND resent B PPO 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 necessary based on Dx 02/12/2017 1:33 PM Full Code 02/11/2017 3:34 PM Provider has discussed Code Status No, more discussi on w/Patient or Family? needed 01/07/2017 11:50 AM Full Code 01/06/2017 1:31 PM Provider has discussed Code Status Yes w/Patient or Family?
--- OUTSIDE RECORDS SUMMARY | 2020-01-16 13:21 | XMS REPORT | Continuity of Care Document ---
Author Organization Unknown Address Unknown Phone Unavailable Allergies Active Description Code Type Severity Reaction Onset Reported/Identified Relationship to Patient Clinical Status Yes erythromycin base [id number] Drug Allergy Unknown SICK TO HER STO 10/13 Yes morphine [id number] Drug Allergy Unknown UNKNOWN 10/27/2006 Yes propoxyphene [id number] Drug Allergy Unknown UNKNOWN 10/27/2006 Yes Sulfa (Sulfonamide Antibiotics) [id number] Drug Allergy Unknown HIVES, SOB 10/27/2006 Yes morphine [id number] Drug Allergy Unknown Pt has received 07/05/2019 Medications There is no data. Problems Date Dx Coded Attending Type Code Diagnosis Diagnosed By 04/04/2011 Ot 327.23 OBS TRUCTIVE SLEEP APNEA (ADULT) (PEDIATR 04/04/2011 Ot 427.31 ATR IAL FIBRILLATION 06/02/2011 Ot 785.1 PALP ITATIONS 06/02/[address] PAIN NOS 06/02/2011 Ot V58.67 ROD G-TERM (CURRENT) USE OF INSULIN 06/02/2011 Ot V58.69 OTH MED,LT,CURRENT USE 04/17/2012 Ot 250.02 KAVITA B ALLEN WO COMPL, TYPE II OR UNSPEC TY 04/17/2012 Ot 272.4 HYPE RLIPIDEMIA NEC/NOS 04/17/2012 Ot 401.9 HYPE RTENSION NOS 04/17/2012 Ot 465.9 ACUT E URI NOS 04/17/2012 Ot 493.92 AST HMA, UNSPECIFIED, W (ACUTE) EXACERBAT 04/17/2012 Ot 780.57 UNS PECIFIED SLEEP APNEA 04/17/2012 Ot 786.1 STRIDOR 04/17/2012 [...] OF INSULIN 02/27/2014 GALE GREGORY MD Ot 278. 00 OBESITY, NOS 02/27/2014 GALE GREGORY MD Ot 721. 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 1 CERVICALGIA 02/27/2014 GALE GREGORY MD Ot 724. 6 DISORDERS OF SACRUM 02/27/2014 GALE GREGORY MD Ot V58. 69 OTH MED,LT,CURRENT USE 02/27/2014 GALE GREGORY MD Ot V85. 34 BODY MASS INDEX 34.0-34.9, ADULT 05/10/2014 BASIM MASSEY MD Ot 272. 4 05/10/2014 BASIM MASSEY MD Ot 397. 0 05/10/2014 BASIM MASSEY MD Ot 401. 9 05/10/2014 BASIM MASSEY MD Ot 424. 0 05/10/2014 BASIM MASSEY MD Ot 427. 69 06/05/2014 BASIM MASSEY MD Ot 272. 4 06/05/2014 BASIM MASSEY MD Ot 278. 00 06/05/2014 BASIM MASSEY MD Ot 401. 9 06/05/2014 BASIM MASSEY MD Ot 427. 69 06/05/2014 BASIM MASSEY MD Ot V85. 33 07/13/2014 BOBY BARRETT MD Ot 787.91 07/20/2014 [...] Ot V45.4 09/22/2014 GALE GREGORY MD Ot 278. 00 OBESITY, NOS 09/22/2014 GALE GREGORY MD Ot 721. 3 LUMBOSACRAL SPONDYLOSIS 09/22/2014 GALE GREGORY MD Ot 722. 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 6 DISORDERS OF SACRUM 09/22/2014 GALE GREGORY MD, Ot V58. 69 OTH MED,LT,CURRENT USE 09/22/2014 GALE GREGORY MD Ot V85. 37 BODY MASS INDEX 37.0-37.9, ADULT 10/11/2014 Ot 786.07 10/11/2014 Ot 786.2 11/15/2014 GALE GREGORY MD Ot 721. 3 11/15/2014 GALE GREGORY MD Ot 722. 83 11/15/2014 GAEL GREGORY MD Ot V58. 69 11/20/2014 BASIM MASSEY MD Ot 272. 4 11/20/2014 BASIM MASSEY MD Ot 278. 00 11/20/2014 BASIM MASSEY MD Ot 401. 9 11/20/2014 BASIM MASSEY MD Ot 427. 69 11/20/2014 BASIM MASSEY MD Ot V85. 33 11/24/2014 GALE GREGORY MD Ot 721. 3 11/24/2014 GALE GREGORY MD Ot 722. 83 11/24/2014 GALE GREGORY MD Ot 724. 6 11/24/2014 GALE GREGORY MD Ot V58. 69 12/06/2014 GALE GREGORY MD Ot 721. 3 12/06/2014 GALE GREGORY MD Ot 722. 83 12/06/2014 GALE GREGORY MD Ot V58. 69 12/11/2014 GALE GREGORY MD Ot 721. 3 12/11/2014 GALE GREGORY MD Ot 722. 83 12/11/2014 GALE GREGORY MD Ot 724. 6 12/11/2014 GALE GREGORY MD Ot V58. 69 12/18/2014 GALE GREGORY MD Ot 721. 3 12/18/2014 GALE GREGORY MD Ot 722. 83 12/18/2014 GALE GREGORY MD Ot V58. 69 05/14/2015 Ot 785.1 05/14/2015 Ot 786.50 05/14/2015 Ot V58.67 05/14/2015 Ot V58.69 05/14/2015 HILTON PRETTY, STAN Vazquez Ot 455. 0 05/14/2015 HILTON PRETTY, STAN Vazquez Ot V76. 51 05/14/2015 HILTON PRETTY, STAN Vazquez Ot V72. 84 05/14/2015 ARNOLD PRETTY, BOBY M Ot 625.9 [...] Ot 733.90 05/14/2015 GALE GREGORY MD Ot 722. 52 05/14/2015 GALE GREGORY MD Ot V58. 69 05/14/2015 GALE GREGORY MD Ot 278. 00 05/14/2015 GALE GREGORY MD Ot 721. 3 05/14/2015 GALE GREGORY MD Ot 722. 52 05/14/2015 GALE GREGORY MD Ot 722. 83 05/14/2015 GALE GREGORY MD Ot V58. 69 05/14/2015 GALE GREGORY MD Ot V85. 35 05/14/2015 ASHLEY PAGAN MD Ot 722.4 05/14/2015 BRYSON PRETTY, BASIM J Ot 272. 4 05/14/2015 BRYSON PRETTY, BASIM J Ot 397. 0 05/14/2015 BRYSON PRETTY, BASIM J Ot 401. 9 05/14/2015 BRYSON PRETTY, BASIM J Ot 424. 0 05/14/2015 BRYSON PRETTY, BASIM J Ot 427. 69 05/14/2015 BRYSON PRETTY, BASIM J Ot 272. 4 05/14/2015 BRYSON PRETTY, BASIM J Ot 278. 00 05/14/2015 BRYSON PRETTY, BASIM J Ot 401. 9 05/14/2015 BRYSON PRETTY, BASIM J Ot 427. 69 05/14/2015 BRYSON PRTETY, BASIM Pedraza Ot V85. 33 05/14/2015 Ot 786.07 05/14/2015 Ot 786.2 05/14/2015 ARNOLD PRETTY, BOBY Austin Ot 787.91 05/14/2015 GALE GREGORY MD Ot 721. 3 05/14/2015 GALE GREGORY MD Ot 722. 83 05/14/2015 GALE GREGORY MD Ot 724. 6 05/14/2015 GALE GREGORY MD Ot V58. 69 05/14/2015 GALE GREGORY MD Ot 721. 3 05/14/2015 GALE GREGORY MD Ot 722. 83 05/14/2015 GALE GREGORY MD Ot V58. 69 05/14/2015 BONITA NEGRON APRN Ot I70 .0 ATHEROSCLEROSIS OF [place] 05/14/2015 BONITA NEGRON APRN Ot K42 .9 UMBILICAL HERNIA WITHOUT OBSTRUCTION OR 05/14/2015 BONITA NEGRON APRN Ot K76 .0 FATTY (CHANGE OF) LIVER, NOT ELSEWHERE C 05/14/2015 BONITA NEGRON APRN Ot N39 .0 URINARY TRACT INFECTION, SITE NOT SPECIF 05/14/2015 BONITA NEGRON APRN Ot R11 .2 NAUSEA WITH VOMITING, UNSPECIFIED 05/14/2015 BONITA NEGRON APRN Ot Z98 .1 ARTHRODESIS STATUS 06/18/2015 Ot 785.1 06/18/2015 Ot 786.50 06/18/2015 Ot V58.67 06/18/2015 Ot V58.69 06/18/2015 HILTON PRETTY, STAN Vazquez Ot 455. 0 06/18/2015 HILTON PRETTY, STAN Vazquez Ot V76. 51 06/18/2015 HILTON PRETTY, STAN Vazquez Ot V72. 84 06/18/2015 ARNOLD PRETTY, BOBY M Ot 625.9 [...] 733.90 06/18/2015 BRI PRETTY, GALE Pedraza Ot 722. 52 06/18/2015 GALE GREGORY MD Ot V58. 69 06/18/2015 GALE GREGORY MD Ot 278. 00 06/18/2015 GALE GREGORY MD Ot 721. 3 06/18/2015 GALE GREGORY MD Ot 722. 52 06/18/2015 GALE GREGORY MD Ot 722. 83 06/18/2015 GALE GREGORY MD Ot V58. 69 06/18/2015 GALE GREGORY MD Ot V85. 35 06/18/2015 ASHLEY PAGAN MD Ot 722.4 06/18/2015 BASIM MASSEY MD Ot 272. 4 06/18/2015 BASIM MASSEY MD Ot 397. 0 06/18/2015 BASIM MASSEY MD Ot 401. 9 06/18/2015 BASIM MASSEY MD Ot 424. 0 06/18/2015 BRYSON PRETTY, BASIM Pedraza Ot 427. 69 06/18/2015 BRYSON PRETTY, BASIM Pedraza Ot 272. 4 06/18/2015 BASIM MASSEY MD Ot 278. 00 06/18/2015 BASIM MASSEY MD Ot 401. 9 06/18/2015 BASIM MASSEY MD Ot 427. 69 06/18/2015 BASIM MASSEY MD Ot V85. 33 06/18/2015 Ot 786.07 06/18/2015 Ot 786.2 06/18/2015 ARNOLD PRETTY, BOBY Austin Ot 787.91 06/18/2015 GALE GREGORY MD Ot 721. 3 06/18/2015 GALE GREGORY MD Ot 722. 83 06/18/2015 GALE GREGORY MD Ot 724. 6 06/18/2015 GALE GREGORY MD Ot V58. 69 06/18/2015 GALE GREGORY MD Ot 721. 3 06/18/2015 GALE GREGORY MD Ot 722. 83 06/18/2015 GALE GREGORY MD Ot V58. 69 02/01/2016 GALE GREGORY MD, Ot G89. 4 CHRONIC PAIN SYNDROME 02/01/2016 GALE GREGORY MD, Ot M47.814 SPONDYLOSIS W/O MYELOPATHY OR RADICULOPA 02/01/2016 GALE GREGORY MD, Ot M51. 16 INTERVERTEBRAL DISC DISORDERS W RADICULO 02/01/2016 GALE GREGORY MD, Ot Z79.899 OTHER MECHANICAL RELIABILITY ENGINEER (CURRENT) DRUG THERAPY 02/11/2016 GALE GREGORY MD, Ot G89. 4 CHRONIC PAIN SYNDROME 02/11/2016 GALE GREGORY MD, Ot M47.814 SPONDYLOSIS W/O MYELOPATHY OR RADICULOPA 02/11/2016 GALE GREGORY MD, Ot M51. 16 INTERVERTEBRAL DISC DISORDERS W RADICULO 02/11/2016 GALE GREGORY MD, Ot Z79.899 OTHER MECHANICAL RELIABILITY ENGINEER (CURRENT) DRUG THERAPY 02/13/2016 GALE GREGORY MD, Ot G89. 4 CHRONIC PAIN SYNDROME 02/13/2016 GALE GREGORY MD, Ot M47.814 SPONDYLOSIS W/O MYELOPATHY OR RADICULOPA 02/13/2016 GALE GREGORY MD Ot M51. 16 INTERVERTEBRAL DISC DISORDERS W RADICULO 02/13/2016 GALE GREGORY MD Ot Z79.899 OTHER INTERMEDIATE (CURRENT) DRUG THERAPY 02/15/2016 GALE GREGORY MD Ot G89. 4 CHRONIC PAIN SYNDROME 02/15/2016 GALE GREGORY MD Ot M47.814 SPONDYLOSIS W/O MYELOPATHY OR RADICULOPA 02/15/2016 GALE GREGORY MD, Ot M47.816 SPONDYLOSIS W/O MYELOPATHY OR RADICULOPA 02/15/2016 GALE GREGORY MD Ot M53. 3 SACROCOCCYGEAL DISORDERS, NOT ELSEWHERE 02/15/2016 GALE GREGORY MD Ot Z79.899 OTHER MECHANICAL RELIABILITY ENGINEER (CURRENT) DRUG THERAPY 02/28/2016 GALE GREGORY MD, Ot G89. 4 CHRONIC PAIN SYNDROME 02/28/2016 GALE GREGORY MD, Ot M47.814 SPONDYLOSIS W/O MYELOPATHY OR RADICULOPA 02/28/2016 GALE GREGORY MD, Ot M47.816 SPONDYLOSIS W/O MYELOPATHY OR RADICULOPA 02/28/2016 GALE GREGORY MD, Ot M53. 3 SACROCOCCYGEAL DISORDERS, NOT ELSEWHERE 02/28/2016 GALE GREGORY MD Ot Z79.899 OTHER INTERMEDIATE (CURRENT) DRUG THERAPY 05/22/2016 Ot 785.1 PALP ITATIONS 05/22/[address] PAIN NOS 05/22/2016 Ot V58.67 ROD G-TERM (CURRENT) USE OF INSULIN 05/22/2016 Ot V58.69 OTH MED,LT,CURRENT USE 05/22/2016 STAN CANELA MD Ot 455. 0 INT HEMORRHOID W/O COMPL 05/22/2016 STAN CANELA MD Ot V76. 51 SCREEN MAL NEOP-COLON 05/22/2016 STAN CANELA MD Ot V72. 84 EXAM PRE-OPERATIVE NOS 05/22/2016 BOBY BARRETT MD [...] MD Ot 756.12 SPONDYLOLISTHESIS 05/22/2016 BOBY BARRETT MD Ot V45.4 ARTHRODESIS STATUS 05/22/2016 BOBY BARRETT MD Ot 724.5 BACKACHE NOS 05/22/2016 BOBY BARRETT MD Ot 733.90 BONE CARTILAGE DIS NOS 05/22/2016 GALE GREGORY MD Ot 722. 52 LUMB/LUMBOSAC DISC DEGEN 05/22/2016 GALE GREGORY MD Ot V58. 69 OTH MED,LT,CURRENT USE 05/22/2016 GALE GREGORY MD Ot 278. 00 OBESITY, NOS 05/22/2016 GALE GREGORY MD Ot 721. 3 LUMBOSACRAL SPONDYLOSIS 05/22/2016 GALE GREGORY MD Ot 722. 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 69 OTH MED,LT,CURRENT USE 05/22/2016 GALE GREGORY MD Ot V85. 35 BODY MASS INDEX 35.0-35.9, ADULT 05/22/2016 ASHLEY PAGAN MD Ot 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 DISC DEGEN 05/22/2016 BASIM MASSEY MD Ot 272. 4 HYPERLIPIDEMIA NEC/NOS 05/22/2016 BASIM MASSEY MD Ot 397. 0 TRICUSPID VALVE DISEASE 05/22/2016 BASIM MASSEY MD Ot 401. 9 HYPERTENSION NOS 05/22/2016 BASIM MASSEY MD Ot 424. 0 MITRAL VALVE DISORDER 05/22/2016 BASIM MASSEY MD Ot 427. 69 PREMATURE BEATS NEC 05/22/2016 BASIM MASSEY MD Ot 272. 4 HYPERLIPIDEMIA NEC/NOS 05/22/2016 BASIM MASSEY MD Ot 278. 00 OBESITY, NOS 05/22/2016 BASIM MASSEY MD Ot 401. 9 HYPERTENSION NOS 05/22/2016 BASIM MASSEY MD Ot 427. 69 PREMATURE BEATS NEC 05/22/2016 BASIM MASSEY MD Ot V85. 33 BODY MASS INDEX 33.0-33.9, ADULT 05/22/2016 Ot 786.07 WHE EZING 05/22/2016 Ot 786.2 COUGH 05/22/2016 ARNOLD PRETTY, BOBY Austin Ot 787.91 DIARRHEA 05/22/2016 GALE GREGORY MD Ot 721. 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 6 DISORDERS OF SACRUM 05/22/2016 GALE GREGORY MD Ot V58. 69 OTH MED,LT,CURRENT USE 05/22/2016 GALE GRGEORY MD Ot 721. 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 69 OTH MED,LT,CURRENT USE 05/22/2016 GALE GREGORY MD Ot M54. 6 PAIN IN THORACIC SPINE 05/29/2016 BASIM MASSEY MD Ot R07. 89 OTHER CHEST PAIN 06/19/2016 JOSE RAUL SILVESTRE APRN Ot R0 5 COUGH 06/19/2016 JOSE RAUL SILVESTRE APRN Ot R06.02 SHORTNESS OF BREATH 06/23/2016 BASIM MASSEY MD Ot R07. 89 OTHER CHEST PAIN 06/30/2016 BASIM MASSEY MD Ot R07. 89 OTHER CHEST PAIN 2016 JOSE RAUL SILVESTRE EXPERIENCE SPECIALIST Ot R0 5 COUGH 2016 JOSE RAUL SILVESTRE APRN Ot R06.02 SHORTNESS OF BREATH 07/23/2016 BASIM MASSEY MD Ot E11. 9 TYPE 2 DIABETES MELLITUS WITHOUT COMPLIC 07/23/2016 BASIM MASSEY MD Ot E78. 5 HYPERLIPIDEMIA, UNSPECIFIED 07/23/2016 BASIM MASSEY MD Ot I10 ESSENTIAL (PRIMARY) HYPERTENSION 07/23/2016 BASIM MASSEY MD Ot I25. 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 0 ATHEROSCLEROSIS OF [place] 07/23/2016 BASIM MASSEY MD Ot R94. 39 ABNORMAL RESULT OF OTHER CARDIOVASCULAR 07/23/2016 BASIM MASSEY MD Ot Z79. 4 INTERMEDIATE (CURRENT) USE OF INSULIN 07/23/2016 BASIM MASSEY MD Ot Z79.899 OTHER INTERMEDIATE (CURRENT) DRUG THERAPY 07/29/2016 BASIM MASSEY MD Ot E11. 9 TYPE 2 DIABETES MELLITUS WITHOUT COMPLIC 07/29/2016 BASIM MASSEY MD Ot E78. 5 HYPERLIPIDEMIA, UNSPECIFIED 07/29/2016 BASIM MASSEY MD Ot I10 ESSENTIAL (PRIMARY) HYPERTENSION 07/29/2016 BASIM MASSEY MD Ot I25. 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 84 CORONARY ATHEROSCLEROSIS DUE TO [place] 07/29/2016 BASIM MASSEY MD Ot I70. 0 ATHEROSCLEROSIS OF [place] 07/29/2016 BASIM MASSEY MD Ot R94. 39 ABNORMAL RESULT OF OTHER CARDIOVASCULAR 07/29/2016 BASIM MASSEY MD Ot Z79. 4 INTERMEDIATE (CURRENT) USE OF INSULIN 07/29/2016 BASIM MASSEY MD Ot Z79.899 OTHER MECHANICAL RELIABILITY ENGINEER (CURRENT) DRUG THERAPY 08/05/2016 JOSE RAUL SILVESTRE EXPERIENCE SPECIALIST Ot R0 5 COUGH 08/05/2016 JOSE RAUL SILVESTRE APRN Ot R06.02 SHORTNESS OF BREATH 08/05/2016 BASIM MASSEY MD, Ot E78. 2 MIXED HYPERLIPIDEMIA 08/05/2016 BASIM MASSEY MD Ot G89. 4 CHRONIC PAIN SYNDROME 08/05/2016 BASIM MASSEY MD Ot I10 ESSENTIAL (PRIMARY) HYPERTENSION 08/05/2016 BASIM MASSEY MD Ot I49. 3 VENTRICULAR PREMATURE DEPOLARIZATION 08/05/2016 BASIM MASSEY MD Ot M54. 2 CERVICALGIA 08/05/2016 BASIM MASSEY MD Ot R00. 2 PALPITATIONS 08/08/2016 BASIM MASSEY MD Ot E78. 2 MIXED HYPERLIPIDEMIA 08/08/2016 BASIM MASSEY MD Ot G89. 4 CHRONIC PAIN SYNDROME 08/08/2016 BASIM MASSEY MD Ot I10 ESSENTIAL (PRIMARY) HYPERTENSION 08/08/2016 BASIM MASSEY MD Ot I49. 3 VENTRICULAR PREMATURE DEPOLARIZATION 08/08/2016 BASIM MASSEY MD Ot M54. 2 CERVICALGIA 08/08/2016 BASIM MASSEY MD Ot R00. 2 PALPITATIONS 08/13/2016 Ot 250.00 08/13/2016 Ot 401.9 08/13/2016 Ot 782.3 08/20/2016 BASIM MASSEY MD Ot E78. 2 MIXED HYPERLIPIDEMIA 08/20/2016 BASIM MASSEY MD Ot G89. 4 CHRONIC PAIN SYNDROME 08/20/2016 BASIM MASSEY MD Ot I10 ESSENTIAL (PRIMARY) HYPERTENSION 08/20/2016 BASIM MASSEY MD Ot I49. 3 VENTRICULAR PREMATURE DEPOLARIZATION 08/20/2016 BASIM MASSEY MD Ot M54. 2 CERVICALGIA 08/20/2016 BASIM MASSEY MD Ot R00. 2 PALPITATIONS 09/13/2016 Ot 250.00 09/13/2016 Ot 401.9 09/13/2016 Ot 782.3 10/27/2016 GALE GREGORY MD Ot G89. 4 CHRONIC PAIN SYNDROME 10/27/2016 GALE GREGORY MD Ot M47.816 SPONDYLOSIS W/O MYELOPATHY OR RADICULOPA 10/27/2016 GALE GREGORY MD Ot M53. 3 SACROCOCCYGEAL DISORDERS, NOT ELSEWHERE 10/27/2016 GALE GREGORY MD Ot Z79. 4 INTERMEDIATE (CURRENT) USE OF INSULIN 11/05/2016 GALE GREGORY MD Ot G89. 4 CHRONIC PAIN SYNDROME 11/05/2016 GALE GREGORY MD Ot M47.816 SPONDYLOSIS W/O MYELOPATHY OR RADICULOPA 11/05/2016 GALE GREGORY MD Ot M53. 3 SACROCOCCYGEAL DISORDERS, NOT ELSEWHERE 11/05/2016 GALE GREGORY MD Ot Z79. 4 MECHANICAL RELIABILITY ENGINEER (CURRENT) USE OF INSULIN 11/13/2016 Ot 250.00 11/13/2016 Ot 401.9 11/13/2016 Ot 782.3 11/14/2016 RICCARDO ATKINSON APRN Ot J45.909 UNSPECIFIED ASTHMA, UNCOMPLICATED 11/14/2016 RICCARDO ATKINSON APRN Ot J45.909 UNSPECIFIED ASTHMA, UNCOMPLICATED 02/07/2017 RICCARDO ATKINSON APRN Ot J45.909 UNSPECIFIED ASTHMA, UNCOMPLICATED 02/27/2017 RICCARDO ATKINSON APRN Ot J45.909 UNSPECIFIED ASTHMA, UNCOMPLICATED 08/03/2017 YONI PRETTY, PETE Chatman Ot H26 .9 UNSPECIFIED CATARACT 08/03/2017 PETE VALLEJO MD Ot Z01.818 ENCOUNTER FOR OTHER PREPROCEDURAL EXAMIN 08/05/2017 PETE VALLEJO MD Ot H26 .9 UNSPECIFIED CATARACT 08/05/2017 YONI PRETTY, PETE Chatman Ot Z01.818 ENCOUNTER FOR OTHER PREPROCEDURAL EXAMIN 08/05/2017 HILTON PRETTY, STAN Vazquez Ot 455. 0 INT HEMORRHOID W/O COMPL 08/05/2017 STAN CANELA MD Ot V76. 51 SCREEN MAL NEOP-COLON 08/05/2017 STAN CANELA MD Ot V72. 84 EXAM PRE-OPERATIVE NOS 08/05/2017 BOBY BARRETT MD Ot 625.9 FEM GENITAL SYMPTOMS NOS 08/05/2017 BOBY BARRETT MD Ot 722.52 LUMB/LUMBOSAC DISC DEGEN 08/05/2017 BOBY BARRETT MD Ot 726.91 EXOSTOSIS, SITE NOS 08/05/2017 BOBY BARRETT MD Ot 733.90 BONE CARTILAGE DIS NOS 08/05/2017 BOBY BARRETT MD Ot 793.7 NOSP (ABN) FINDINGS ON RADIOLOGICAL OT 08/05/2017 BOBY BARRETT MD Ot V45.4 ARTHRODESIS STATUS 08/05/2017 BOBY BARRETT MD Ot 724.02 SPINAL STENOSIS, LUMBAR REG, W/OUT NEURO 08/05/2017 BOBY BARRETT MD Ot 724.2 LUMBAGO 08/05/2017 BOBY BARRTET MD Ot 724.4 LUMBOSACRAL NEURITIS NOS 08/05/2017 BOBY BARRETT MD Ot 756.12 SPONDYLOLISTHESIS 08/05/2017 BOBY BARRETT MD Ot V45.4 ARTHRODESIS STATUS 08/05/2017 BOBY BARRETT MD Ot 724.5 BACKACHE NOS 08/05/2017 BOBY BARRETT MD Ot 733.90 BONE CARTILAGE DIS NOS 08/05/2017 GALE GREGORY MD Ot 722. 52 LUMB/LUMBOSAC DISC DEGEN 08/05/2017 GALE GREGORY MD Ot V58. 69 OTH MED,LT,CURRENT USE 08/05/2017 GALE GREGORY MD Ot 278. 00 OBESITY, NOS 08/05/2017 GALE GREGORY MD Ot 721. 3 LUMBOSACRAL SPONDYLOSIS 08/05/2017 GALE GREGORY MD Ot 722. 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 69 OTH MED,LT,CURRENT USE 08/05/2017 GALE GREGORY MD Ot V85. 35 BODY MASS INDEX 35.0-35.9, ADULT 08/05/2017 ASHLEY PAGAN MD Ot 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 DISC DEGEN 08/05/2017 BASIM MASSEY MD Ot 272. 4 HYPERLIPIDEMIA NEC/NOS 08/05/2017 BASIM MASSEY MD Ot 397. 0 TRICUSPID VALVE DISEASE 08/05/2017 BASIM MASSEY MD Ot 401. 9 HYPERTENSION NOS 08/05/2017 BASIM MASSEY MD Ot 424. 0 MITRAL VALVE DISORDER 08/05/2017 BASIM MASSEY MD Ot 427. 69 PREMATURE BEATS NEC 08/05/2017 BASIM MASSEY MD Ot 272. 4 HYPERLIPIDEMIA NEC/NOS 08/05/2017 BASIM MASSEY MD Ot 278. 00 OBESITY, NOS 08/05/2017 BASIM MASSEY MD Ot 401. 9 HYPERTENSION NOS 08/05/2017 BASIM MASSEY MD Ot 427. 69 PREMATURE BEATS NEC 08/05/2017 BASIM MASSEY MD Ot V85. 33 BODY MASS INDEX 33.0-33.9, ADULT 08/05/2017 Ot 786.07 WHE EZING 08/05/2017 Ot 786.2 COUGH 08/05/2017 ARNOLD PRETTY, BOBY Austin Ot 787.91 DIARRHEA 08/05/2017 GALE GREGORY MD Ot 721. 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 6 DISORDERS OF SACR[place] 08/05/2017 GALE GREGORY MD Ot V58. 69 OTH MED,LT,CURRENT USE 08/05/2017 GALE GREGORY MD Ot 721. 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 69 OTH MED,LT,CURRENT USE 08/05/2017 GALE GREGORY MD Ot M54. 6 PAIN IN THORACIC SPINE 08/05/2017 BASIM MASSEY MD Ot R07. 89 OTHER CHEST PAIN 08/05/2017 JOSE RAUL SILVESTRE APRN Ot R0 5 COUGH 08/05/2017 JOSE RAUL SILVESTRE APRN Ot R06.02 SHORTNESS OF BREATH 08/05/2017 BASIM MASSEY MD Ot E78. 2 MIXED HYPERLIPIDEMIA 08/05/2017 BASIM MASSEY MD Ot G89. 4 CHRONIC PAIN SYNDROME 08/05/2017 BASIM MASSEY MD Ot I10 ESSENTIAL (PRIMARY) HYPERTENSION 08/05/2017 BASIM MASSEY MD Ot I49. 3 VENTRICULAR PREMATURE DEPOLARIZATION 08/05/2017 BASIM MASSEY MD Ot M54. 2 CERVICALGIA 08/05/2017 BASIM MASSEY MD Ot R00. 2 PALPITATIONS 08/05/2017 RICCARDO ATKINSON APRN Ot J45.909 UNSPECIFIED ASTHMA, UNCOMPLICATED 08/07/2017 PETE VALLEJO MD Ot E11.36 TYPE 2 DIABETES MELLITUS WITH DIABETIC C 08/07/2017 PETE VALLEJO MD Ot E66 .9 OBESITY, UNSPECIFIED 08/07/2017 PETE VALLEJO MD Ot I10 ESSENTIAL (PRIMARY) HYPERTENSION 08/07/2017 PETE VALLEJO MD Ot I25.10 ATHSCL HEART DISEASE OF [place] CORONARY 08/07/2017 PETE VALLJEO MD Ot J45.909 UNSPECIFIED ASTHMA, UNCOMPLICATED 08/07/2017 PETE VALLEJO MD Ot M19.91 PRIMARY OSTEOARTHRITIS, UNSPECIFIED SITE 08/07/2017 PETE VALLEJO MD Ot Z68.38 BODY MASS INDEX (BMI) 38.0-38.9, ADULT 08/07/2017 PETE VALLEJO MD Ot Z79 .4 MECHANICAL RELIABILITY ENGINEER (CURRENT) USE OF INSULIN 08/07/2017 PETE VALLEJO MD Ot Z79.82 INTERMEDIATE (CURRENT) USE OF ASPIRIN 08/07/2017 PETE VALLEJO MD Ot Z79.899 OTHER MECHANICAL RELIABILITY ENGINEER (CURRENT) DRUG THERAPY 08/11/2017 PETE VALLEJO MD Ot E11.36 TYPE 2 DIABETES MELLITUS WITH DIABETIC C 08/11/2017 PETE VALLEJO MD Ot E66 .9 OBESITY, UNSPECIFIED 08/11/2017 PETE VALLEJO MD Ot H25 .9 UNSPECIFIED AGE-RELATED CATARACT 08/11/2017 PETE VALLEJO MD Ot I10 ESSENTIAL (PRIMARY) HYPERTENSION 08/11/2017 PETE VALLEJO MD Ot I25.10 ATHSCL HEART DISEASE OF [place] CORONARY 08/11/2017 PETE VALLEJO MD Ot J45.909 UNSPECIFIED ASTHMA, UNCOMPLICATED 08/11/2017 PETE VALLEJO MD Ot M19.91 PRIMARY OSTEOARTHRITIS, UNSPECIFIED SITE 08/11/2017 PETE VALLEJO MD Ot Z68.38 BODY MASS INDEX (BMI) 38.0-38.9, ADULT 08/11/2017 PETE VALLEJO MD Ot Z79 .4 INTERMEDIATE (CURRENT) USE OF INSULIN 08/11/2017 PETE VALLEJO MD Ot 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 08/11/2017 PETE VALLEJO MD Ot Z79.899 OTHER INTERMEDIATE (CURRENT) DRUG THERAPY 08/11/2017 PETE VALLEJO MD Ot E11.36 TYPE 2 DIABETES MELLITUS WITH DIABETIC C 08/11/2017 PETE VALLEJO MD Ot E66 .9 OBESITY, UNSPECIFIED 08/11/2017 PETE VALLEJO MD Ot I10 ESSENTIAL (PRIMARY) HYPERTENSION 08/11/2017 PETE VALLEJO MD Ot I25.10 ATHSCL HEART DISEASE OF [place] CORONARY 08/11/2017 PETE VALLEJO MD Ot J45.909 UNSPECIFIED ASTHMA, UNCOMPLICATED 08/11/2017 PETE VALLEJO MD, Ot M19.91 PRIMARY OSTEOARTHRITIS, UNSPECIFIED SITE 08/11/2017 PETE VALLEJO MD Ot Z68.38 BODY MASS INDEX (BMI) 38.0-38.9, ADULT 08/11/2017 PETE VALLEJO MD Ot Z79 .4 INTERMEDIATE (CURRENT) USE OF INSULIN 08/11/2017 PETE VALLEJO MD Ot Z79.82 INTERMEDIATE (CURRENT) USE OF ASPIRIN 08/11/2017 PETE VALLEJO MD Ot Z79.899 OTHER MECHANICAL RELIABILITY ENGINEER (CURRENT) DRUG THERAPY 08/13/2017 PETE VALLEJO MD, Ot E11.36 TYPE 2 DIABETES MELLITUS WITH DIABETIC C 08/13/2017 PETE VALLEJO MD Ot E66 .9 OBESITY, UNSPECIFIED 08/13/2017 PETE VALLEJO MD Ot I10 ESSENTIAL (PRIMARY) HYPERTENSION 08/13/2017 PETE VALLEJO MD Ot I25.10 ATHSCL HEART DISEASE OF [place] CORONARY 08/13/2017 PETE VALLEJO MD Ot J45.909 UNSPECIFIED ASTHMA, UNCOMPLICATED 08/13/2017 PETE VALLEJO MD Ot M19.91 PRIMARY OSTEOARTHRITIS, UNSPECIFIED SITE 08/13/2017 PETE VALLEJO MD Ot Z68.38 BODY MASS INDEX (BMI) 38.0-38.9, ADULT 08/13/2017 PETE VALLEJO MD Ot Z79 .4 INTERMEDIATE (CURRENT) USE OF INSULIN 08/13/2017 PETE VALLEJO MD Ot Z79.82 INTERMEDIATE (CURRENT) USE OF ASPIRIN 08/13/2017 PETE VALLEJO MD Ot Z79.899 OTHER MECHANICAL RELIABILITY ENGINEER (CURRENT) DRUG THERAPY 08/17/2017 PETE VALLEJO MD Ot H25.12 AGE-RELATED NUCLEAR CATARACT, LEFT EYE 08/17/2017 PETE VALLEJO MD Ot Z01.818 ENCOUNTER FOR OTHER PREPROCEDURAL EXAMIN 08/17/2017 PETE VALLEJO MD Ot H25.12 AGE-RELATED NUCLEAR CATARACT, LEFT EYE 08/17/2017 PETE VALLEJO MD Ot Z01.818 ENCOUNTER FOR OTHER PREPROCEDURAL EXAMIN 08/21/2017 PETE VALLEJO MD Ot E11.36 TYPE 2 DIABETES MELLITUS WITH DIABETIC C 08/21/2017 PETE VALLEJO MD Ot H25 .9 UNSPECIFIED AGE-RELATED CATARACT 08/21/2017 PETE VALLEJO MD Ot I10 ESSENTIAL (PRIMARY) HYPERTENSION 08/21/2017 PETE VALLEJO MD Ot J45.909 UNSPECIFIED ASTHMA, UNCOMPLICATED 08/21/2017 PETE VALLEJO MD Ot M19.91 PRIMARY OSTEOARTHRITIS, UNSPECIFIED SITE 08/21/2017 PETE VALLEJO MD Ot Z79 .4 MECHANICAL RELIABILITY ENGINEER (CURRENT) USE OF INSULIN 08/21/2017 PETE VALLEJO MD Ot Z79.82 INTERMEDIATE (CURRENT) USE OF ASPIRIN 08/21/2017 PETE VALLEJO MD Ot Z79.899 OTHER MECHANICAL RELIABILITY ENGINEER (CURRENT) DRUG THERAPY 08/21/2017 PETE VALLEJO MD Ot Z87.891 PERSONAL HISTORY OF NICOTINE DEPENDENCE 08/25/2017 PETE VALLEJO MD Ot E11.36 TYPE 2 DIABETES MELLITUS WITH DIABETIC C 08/25/2017 PETE VALLEJO MD Ot H25 .9 UNSPECIFIED AGE-RELATED CATARACT 08/25/2017 PETE VALLEJO MD Ot I10 ESSENTIAL (PRIMARY) HYPERTENSION 08/25/2017 PETE VALLEJO MD Ot J45.909 UNSPECIFIED ASTHMA, UNCOMPLICATED 08/25/2017 PETE VALLEJO MD Ot M19.91 PRIMARY OSTEOARTHRITIS, UNSPECIFIED SITE 08/25/2017 PETE VALLEJO MD Ot Z79 .4 INTERMEDIATE (CURRENT) USE OF INSULIN 08/25/2017 PETE VALLEJO MD Ot Z79.82 INTERMEDIATE (CURRENT) USE OF ASPIRIN 08/25/2017 PETE VALLEJO MD Ot Z79.899 OTHER INTERMEDIATE (CURRENT) DRUG THERAPY 08/25/2017 PETE VALLEJO MD Ot Z87.891 PERSONAL HISTORY OF NICOTINE DEPENDENCE 10/05/2017 AMILCAR HOWELL Ot S82.431A DISPLACED OBLIQUE FRACTURE OF SHAFT OF R 10/05/2017 AMILCAR HOWELL SKIN CARE INSTRUCTOR Ot S99.911A UNSPECIFIED INJURY OF RIGHT ANKLE, INITI 10/05/2017 AMILCAR HOWELLP Ot S99.921A UNSPECIFIED INJURY OF RIGHT FOOT, INITIA 10/05/2017 AMILCAR HOWELLP Ot W19.XXXA UNSPECIFIED FALL, INITIAL ENCOUNTER 10/08/2017 AMILCAR HOWELLP Ot S82.831A OTH FRACTURE OF UPPER AND LOWER END OF R 10/26/2017 AMILCAR HOWELL SKIN CARE INSTRUCTOR Ot S82.431A DISPLACED OBLIQUE FRACTURE OF SHAFT OF R 10/26/2017 AMILCAR HOWELLP Ot S99.911A UNSPECIFIED INJURY OF RIGHT ANKLE, INITI 10/26/2017 AMILCAR HOWELL SKIN CARE INSTRUCTOR Ot S99.921A UNSPECIFIED INJURY OF RIGHT FOOT, INITIA 10/26/2017 AMILCAR HOWELL SKIN CARE INSTRUCTOR Ot W19.XXXA UNSPECIFIED FALL, INITIAL ENCOUNTER 10/27/2017 AMILCAR HOWELL SKIN CARE INSTRUCTOR Ot S82.831A OTH FRACTURE OF UPPER AND LOWER END OF R 11/12/2017 AMILCAR HOWELL SKIN CARE INSTRUCTOR Ot S82.431A DISPLACED OBLIQUE FRACTURE OF SHAFT OF R 11/12/2017 AMILCAR HOWELL SKIN CARE INSTRUCTOR Ot S99.911A UNSPECIFIED INJURY OF RIGHT ANKLE, INITI 11/12/2017 AMILCAR HOWELL SKIN CARE INSTRUCTOR Ot S99.921A UNSPECIFIED INJURY OF RIGHT FOOT, INITIA 11/12/2017 AMILCAR HOWELLP Ot W19.XXXA UNSPECIFIED FALL, INITIAL ENCOUNTER 11/12/2017 AMILCAR HOWELLP Ot S82.831A OTH FRACTURE OF UPPER AND LOWER END OF R 04/30/2018 STAN CANELA MD Ot 455. 0 INT HEMORRHOID W/O COMPL 04/30/2018 STAN CANELA MD Ot V76. 51 SCREEN MAL NEOP-COLON 04/30/2018 STAN CANELA MD Ot V72. 84 EXAM PRE-OPERATIVE NOS 04/30/2018 BOBY BARRETT MD Ot 625.9 FEM GENITAL SYMPTOMS NOS 04/30/2018 BOBY BARRETT MD Ot 722.52 LUMB/LUMBOSAC DISC DEGEN 04/30/2018 BOBY BARRETT MD Ot 726.91 EXOSTOSIS, SITE NOS 04/30/2018 BOBY BARRETT MD Ot 733.90 BONE CARTILAGE DIS NOS 04/30/2018 BOBY BARRETT MD Ot 793.7 NOSP (ABN) FINDINGS ON RADIOLOGICAL OT 04/30/2018 BOBY BARRETT MD Ot V45.4 ARTHRODESIS STATUS 04/30/2018 BOBY BARRETT MD Ot 724.02 SPINAL STENOSIS, LUMBAR REG, W/OUT NEURO 04/30/2018 BOBY BARRETT MD Ot 724.2 LUMBAGO 04/30/2018 BOBY BARRETT MD Ot 724.4 LUMBOSACRAL NEURITIS NOS 04/30/2018 BOBY BARRETT MD Ot 756.12 SPONDYLOLISTHESIS 04/30/2018 BOBY BARRETT MD Ot V45.4 ARTHRODESIS STATUS 04/30/2018 BOBY BARRETT MD Ot 724.5 BACKACHE NOS 04/30/2018 BOBY BARRETT MD Ot 733.90 BONE CARTILAGE DIS NOS 04/30/2018 GALE GREGORY MD Ot 722. 52 LUMB/LUMBOSAC DISC DEGEN 04/30/2018 GALE GREGORY MD Ot V58. 69 OTH MED,LT,CURRENT USE 04/30/2018 GALE GREGORY MD Ot 278. 00 OBESITY, NOS 04/30/2018 GALE GREGORY MD Ot 721. 3 LUMBOSACRAL SPONDYLOSIS 04/30/2018 GALE GREGORY MD Ot 722. 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 69 OTH MED,LT,CURRENT USE 04/30/2018 GALE GREGORY MD Ot V85. 35 BODY MASS INDEX 35.0-35.9, ADULT 04/30/2018 LATASHA PRETTY, ASHLEY Pedraza Ot 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 DISC DEGEN 04/30/2018 BASIM MASSEY MD Ot 272. 4 HYPERLIPIDEMIA NEC/NOS 04/30/2018 BASIM MASSEY MD Ot 397. 0 TRICUSPID VALVE DISEASE 04/30/2018 BASIM MASSEY MD Ot 401. 9 HYPERTENSION NOS 04/30/2018 BASIM MASSEY MD Ot 424. 0 MITRAL VALVE DISORDER 04/30/2018 BASIM MASSEY MD Ot 427. 69 PREMATURE BEATS NEC 04/30/2018 BASIM MASSEY MD Ot 272. 4 HYPERLIPIDEMIA NEC/NOS 04/30/2018 BASIM MASSEY MD Ot 278. 00 OBESITY, NOS 04/30/2018 BASIM MASSEY MD Ot 401. 9 HYPERTENSION NOS 04/30/2018 BASIM MASSEY MD Ot 427. 69 PREMATURE BEATS NEC 04/30/2018 BSAIM MASSEY MD Ot V85. 33 BODY MASS INDEX 33.0-33.9, ADULT 04/30/2018 Ot 786.07 WHE EZING 04/30/2018 Ot 786.2 COUGH 04/30/2018 ARNOLD PRETTY, BOBY Austin Ot 787.91 DIARRHEA 04/30/2018 GALE GREGORY MD Ot 721. 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 6 DISORDERS OF SACRUM 04/30/2018 GALE GREGORY MD Ot V58. 69 OTH MED,LT,CURRENT USE 04/30/2018 GALE GREGORY MD Ot 721. 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 69 OTH MED,LT,CURRENT USE 04/30/2018 GALE GREGORY MD Ot M54. 6 PAIN IN THORACIC SPINE 04/30/2018 BASIM MASSEY MD Ot R07. 89 OTHER CHEST PAIN 04/30/2018 JOSE RAUL SILVESTRE EXPERIENCE SPECIALIST Ot R0 5 COUGH 04/30/2018 JOSE RAUL SILVESTRE EXPERIENCE SPECIALIST Ot R06.02 SHORTNESS OF BREATH 04/30/2018 BASIM MASSEY MD Ot E78. 2 MIXED HYPERLIPIDEMIA 04/30/2018 BASIM MASSEY MD Ot G89. 4 CHRONIC PAIN SYNDROME 04/30/2018 BASIM MASSEY MD Ot I10 ESSENTIAL (PRIMARY) HYPERTENSION 04/30/2018 BASIM MASSEY MD Ot I49. 3 VENTRICULAR PREMATURE DEPOLARIZATION 04/30/2018 BASIM MASSEY MD Ot M54. 2 CERVICALGIA 04/30/2018 BASIM MASSEY MD Ot R00. 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, LEFT EYE 04/30/2018 YONI PRETTY, PETE Chatman Ot Z01.818 ENCOUNTER FOR OTHER PREPROCEDURAL EXAMIN 04/30/2018 AMILCAR HOWELL SKIN CARE INSTRUCTOR Ot S82.431A DISPLACED OBLIQUE FRACTURE OF SHAFT OF R 04/30/2018 AMILCAR HOWELL SKIN CARE INSTRUCTOR Ot S99.911A UNSPECIFIED INJURY OF RIGHT ANKLE, INITI 04/30/2018 AMILCAR HOWELL SKIN CARE INSTRUCTOR Ot S99.921A UNSPECIFIED INJURY OF RIGHT FOOT, INITIA 04/30/2018 AMILCAR HOWELL SKIN CARE INSTRUCTOR Ot W19.XXXA UNSPECIFIED FALL, INITIAL ENCOUNTER 04/30/2018 AMILCAR HOWELL SKIN CARE INSTRUCTOR Ot S82.831A OTH FRACTURE OF UPPER AND LOWER END OF R 05/03/2018 JOSE RAUL SILVESTRE EXPERIENCE SPECIALIST Ot R0 5 COUGH 05/03/2018 JOSE RAUL SILVESTRE EXPERIENCE SPECIALIST Ot R06.02 SHORTNESS OF BREATH 05/25/2018 JOSE RAUL SILVESTRE EXPERIENCE SPECIALIST Ot R0 5 COUGH 05/25/2018 JOSE RAUL SILVESTRE EXPERIENCE SPECIALIST Ot R06.02 SHORTNESS OF BREATH 06/10/2018 JOSE RAUL SILVESTRE EXPERIENCE SPECIALIST Ot R0 5 COUGH 06/10/2018 JOSE RAUL SILVESTRE EXPERIENCE SPECIALIST Ot R06.02 SHORTNESS OF BREATH 12/02/2018 BASIM MASSEY MD Ot E78. 2 MIXED HYPERLIPIDEMIA 12/02/2018 BRYSON PRETTY, BASIM Pedraza Ot I07. 1 RHEUMATIC TRICUSPID INSUFFICIENCY 12/02/2018 BASIM MASSEY MD Ot I10 ESSENTIAL (PRIMARY) HYPERTENSION 12/02/2018 BASIM MASSEY MD Ot I49. 3 VENTRICULAR PREMATURE DEPOLARIZATION 12/02/2018 BASIM MASSEY MD Ot J45.909 UNSPECIFIED ASTHMA, UNCOMPLICATED 12/02/2018 BASIM MASSEY MD Ot M53. 3 SACROCOCCYGEAL DISORDERS, NOT ELSEWHERE 12/02/2018 BASIM MASSEY MD Ot R07. 89 OTHER CHEST PAIN 12/22/2018 BASIM MASSEY MD Ot E78. 2 MIXED HYPERLIPIDEMIA 12/22/2018 BASIM MASSEY MD Ot I07. 1 RHEUMATIC TRICUSPID INSUFFICIENCY 12/22/2018 BASIM MASSEY MD Ot I10 ESSENTIAL (PRIMARY) HYPERTENSION 12/22/2018 BASIM MASSEY MD Ot I49. 3 VENTRICULAR PREMATURE DEPOLARIZATION 12/22/2018 BASIM MASSEY MD Ot J45.909 UNSPECIFIED ASTHMA, UNCOMPLICATED 12/22/2018 BASIM MASSEY MD Ot M53. 3 SACROCOCCYGEAL DISORDERS, NOT ELSEWHERE 12/22/2018 BASIM MASSEY MD Ot R07. 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 2 DIABETES MELLITUS WITH DIABETIC P 01/16/2019 MAHOGANY SANTAMARIA DO Ot E78.00 PURE HYPERCHOLESTEROLEMIA, UNSPECIFIED 01/16/2019 MAHOGANY SANTAMARIA DO Ot I10 ESSENTIAL (PRIMARY) HYPERTENSION 01/16/2019 MAHOGANY SANTAMARIA DO Ot I25.10 ATHSCL HEART DISEASE OF [place] CORONARY 01/16/2019 MAHOGANY SANTAMARIA DO Ot J44.9 CHRONIC OBSTRUCTIVE PULMONARY DISEASE, U 01/16/2019 MAHOGANY SANTAMARIA DO Ot R29.898 OT SYMPTOMS AND SIGNS INVOLVING THE MUS 01/16/2019 MAHOGANY SANTAMARIA DO Ot R42 DIZZINESS AND GIDDINESS 01/16/2019 MAHOGANY SANTAMARIA DO Ot R93.89 ABNORMAL FINDINGS ON DX IMAGING OF OTH B 01/16/2019 MAHOGANY SANTAMARIA DO Ot Z79.4 INTERMEDIATE (CURRENT) USE OF INSULIN 01/16/2019 MAHOGANY SANTAMARIA DO Ot 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 01/16/2019 HINA MAHOGANY DONALD Ot Z85.42 PERSONAL HISTORY OF MALIGNANT NEOPLASM O 01/16/2019 MAHOGANY SANTAMARIA DO Ot Z88.1 ALLERGY STATUS TO OTHER ANTIBIOTIC AGENT 01/16/2019 HINA MAHOGANY DONALD Ot Z88.2 ALLERGY STATUS TO SULFONAMIDES STATUS 01/16/2019 HINA MAHOGANY DONALD Ot Z88.5 ALLERGY STATUS TO NARCOTIC AGENT STATUS 01/16/2019 HINA DOMAHOGANY Ot Z88.8 ALLERGY STATUS TO OTH DRUG/MEDS/BIOL SUB 01/16/2019 HINA MAHOGANY Ot Z90.49 ACQUIRED ABSENCE OF OTHER SPECIFIED PART 01/16/2019 HINA MAHOGANY DONALD Ot Z90.710 ACQUIRED ABSENCE OF BOTH CERVIX AND UTER 01/16/2019 HINA MAHOGANY DONALD Ot Z90.722 ACQUIRED ABSENCE OF OVARIES, BILATERAL 01/16/2019 HINA DOMAHOGANY Ot Z90.89 ACQUIRED ABSENCE OF OTHER ORGANS 01/16/2019 HINA DOMAHOGANY Ot Z95.9 PRESENCE OF CARDIAC AND VASCULAR IMPLANT 03/18/2019 MAHOGANY SANTAMARIA DO Ot E11.42 TYPE 2 DIABETES MELLITUS WITH DIABETIC P 03/18/2019 MAHOGANY SANTAMARIA DO Ot E78.00 PURE HYPERCHOLESTEROLEMIA, UNSPECIFIED 03/18/2019 HINA MAHOGANY DONALD Ot I10 ESSENTIAL (PRIMARY) HYPERTENSION 03/18/2019 HINA MAHOGANY DONALD Ot I25.10 ATHSCL HEART DISEASE OF [place] CORONARY 03/18/2019 MAHOGANY SANTAMARIA DO Ot J44.9 CHRONIC OBSTRUCTIVE PULMONARY DISEASE, U 03/18/2019 HINA MAHOGANY DONALD Ot R29.898 OT SYMPTOMS AND SIGNS INVOLVING THE MUS 03/18/2019 MAHOGANY SANTAMARIA DO Ot R42 DIZZINESS AND GIDDINESS 03/18/2019 HINA MAHOGANY DONALD Ot R93.89 ABNORMAL FINDINGS ON DX IMAGING OF OTH B 03/18/2019 MAHOGANY SANTAMARIA DO Ot Z79.4 INTERMEDIATE (CURRENT) USE OF INSULIN 03/18/2019 MAHOGANY SANTAMARIA DO Ot Z79.82 INTERMEDIATE (CURRENT) USE OF ASPIRIN 03/18/2019 HINA MAHOGANY DONALD Ot Z85.42 PERSONAL HISTORY OF MALIGNANT NEOPLASM O 03/18/2019 HINA MAHOGANY DONALD Ot Z88.1 ALLERGY STATUS TO OTHER ANTIBIOTIC AGENT 03/18/2019 HINA MAHOGANY DONALD Ot Z88.2 ALLERGY STATUS TO SULFONAMIDES STATUS 03/18/2019 HINA MAHOGANY DONALD Ot Z88.5 ALLERGY STATUS TO NARCOTIC AGENT STATUS 03/18/2019 HINA MAHOGANY DONALD Ot Z88.8 ALLERGY STATUS TO OTH DRUG/MEDS/BIOL SUB 03/18/2019 [place] MAHOGANY DONALD Ot Z90.49 ACQUIRED ABSENCE OF OTHER SPECIFIED PART 03/18/2019 [place] MAHOGANY DONALD Ot Z90.710 ACQUIRED ABSENCE OF BOTH CERVIX AND UTER 03/18/2019 HINA MAHOGANY DONALD Ot Z90.722 ACQUIRED ABSENCE OF OVARIES, BILATERAL 03/18/2019 [place] MAHOGANY DONALD Ot Z90.89 ACQUIRED ABSENCE OF OTHER ORGANS 03/18/2019 HINA DOMAHOGANY Ot Z95.9 PRESENCE OF CARDIAC AND VASCULAR IMPLANT 03/20/2019 HINA MAHOGANY DONALD Ot E11.42 TYPE 2 DIABETES MELLITUS WITH DIABETIC P 03/20/2019 HINA AMHOGANY DONALD Ot E78.00 PURE HYPERCHOLESTEROLEMIA, UNSPECIFIED 03/20/2019 HINA MAHOGANY DONALD Ot I10 ESSENTIAL (PRIMARY) HYPERTENSION 03/20/2019 [place] MAHOGANY DONALD Ot I25.10 ATHSCL HEART DISEASE OF [place] CORONARY 03/20/2019 HINA MAHOGANY DONALD Ot J44.9 CHRONIC OBSTRUCTIVE PULMONARY DISEASE, U 03/20/2019 HINA MAHOGANY DONALD Ot R29.898 OT SYMPTOMS AND SIGNS INVOLVING THE MUS 03/20/2019 MAHOGANY SANTAMARIA DO Ot R42 DIZZINESS AND GIDDINESS 03/20/2019 [place] MAHOGANY DONALD Ot R93.89 ABNORMAL FINDINGS ON DX IMAGING OF OTH B 03/20/2019 MAHOGANY SANTAMARIA DO Ot Z79.4 INTERMEDIATE (CURRENT) USE OF INSULIN 03/20/2019 HINA MAHOGANY DONALD Ot 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 03/20/2019 HINA MAHOGANY DONALD Ot Z85.42 PERSONAL HISTORY OF MALIGNANT NEOPLASM O 03/20/2019 HINA DO, MAHOGANY K Ot Z88.1 ALLERGY STATUS TO OTHER ANTIBIOTIC AGENT 03/20/2019 MAHOGANY SANTAMARIA DO Ot Z88.2 ALLERGY STATUS TO SULFONAMIDES STATUS 03/20/2019 MAHOGANY SANTAMARIA DO Ot Z88.5 ALLERGY STATUS TO NARCOTIC AGENT STATUS 03/20/2019 MAHOGANY SANTAMARIA DO Ot Z88.8 ALLERGY STATUS TO OTH DRUG/MEDS/BIOL SUB 03/20/2019 MAHOGANY SANTAMARIA DO Ot Z90.49 ACQUIRED ABSENCE OF OTHER SPECIFIED PART 03/20/2019 MAHOGANY SANTAMARIA DO Ot Z90.710 ACQUIRED ABSENCE OF BOTH CERVIX AND UTER 03/20/2019 HINA MAHOGANY DONALD Ot Z90.722 ACQUIRED ABSENCE OF OVARIES, BILATERAL 03/20/2019 MAHOGANY SANTAMARIA DO Ot Z90.89 ACQUIRED ABSENCE OF OTHER ORGANS 03/20/2019 MAHOGANY SANTAMARIA DO Ot Z95.9 PRESENCE OF CARDIAC AND VASCULAR IMPLANT 03/23/2019 MAHOGANY SANTAMARIA DO Ot E11.42 TYPE 2 DIABETES MELLITUS WITH DIABETIC P 03/23/2019 MAHOGANY SANTAMARIA DO Ot E78.00 PURE HYPERCHOLESTEROLEMIA, UNSPECIFIED 03/23/2019 MAHOGANY SANTAMARIA DO Ot I10 ESSENTIAL (PRIMARY) HYPERTENSION 03/23/2019 MAHOGANY SANTAMARIA DO Ot I25.10 ATHSCL HEART DISEASE OF [place] CORONARY 03/23/2019 MAHOGANY SANTAMARIA DO Ot J44.9 CHRONIC OBSTRUCTIVE PULMONARY DISEASE, U 03/23/2019 MAHOGANY SANTAMARIA DO Ot R29.898 OT SYMPTOMS AND SIGNS INVOLVING THE MUS 03/23/2019 MAHOGANY SANTAMARIA DO Ot R42 DIZZINESS AND GIDDINESS 03/23/2019 MAHOGANY SANTAMARIA DO Ot R93.89 ABNORMAL FINDINGS ON DX IMAGING OF OTH B 03/23/2019 MAHOGANY SANTAMARIA DO Ot 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 03/23/2019 MAHOGANY SANTAMARIA DO Ot Z79.82 INTERMEDIATE (CURRENT) USE OF ASPIRIN 03/23/2019 MAHOGANY SANTAMARIA DO Ot Z85.42 PERSONAL HISTORY OF MALIGNANT NEOPLASM O 03/23/2019 MAHOGANY SANTAMARIA DO Ot Z88.1 ALLERGY STATUS TO OTHER ANTIBIOTIC AGENT 03/23/2019 MAHOGANY SANTAMARIA DO Ot Z88.2 ALLERGY STATUS TO SULFONAMIDES STATUS 03/23/2019 MAHOGANY SANTAMARIA DO Ot Z88.5 ALLERGY STATUS TO NARCOTIC AGENT STATUS 03/23/2019 MAHOGANY SANTAMARIA DO Ot Z88.8 ALLERGY STATUS TO OTH DRUG/MEDS/BIOL SUB 03/23/2019 MAHOGANY SANTAMARIA DO Ot Z90.49 ACQUIRED ABSENCE OF OTHER SPECIFIED PART 03/23/2019 HINA DONALD MAHOGANY Sevilla Ot Z90.710 ACQUIRED ABSENCE OF BOTH CERVIX AND UTER 03/23/2019 MAHOGANY SANTAMARIA DO Ot Z90.722 ACQUIRED ABSENCE OF OVARIES, BILATERAL 03/23/2019 MAHOGANY SANTAMARIA DO Ot Z90.89 ACQUIRED ABSENCE OF OTHER ORGANS 03/23/2019 MAHOGANY SANTAMARIA DO Ot Z95.9 PRESENCE OF CARDIAC AND VASCULAR IMPLANT 04/12/2019 MORRIS CASAREZ MD, Ot E11. 42 TYPE 2 DIABETES MELLITUS WITH DIABETIC P 04/12/2019 MORRIS CASAREZ MD, Ot E66. 9 OBESITY, UNSPECIFIED 04/12/2019 MORRIS CASAREZ MD, Ot E78. 00 PURE HYPERCHOLESTEROLEMIA, UNSPECIFIED 04/12/2019 MORRIS CASAREZ MD, Ot I10 ESSENTIAL (PRIMARY) HYPERTENSION 04/12/2019 MORRIS CASAREZ MD, Ot I25. 10 ATHSCL HEART DISEASE OF [place] CORONARY 04/12/2019 MORRIS CASAREZ MD, Ot J44. 9 CHRONIC OBSTRUCTIVE PULMONARY DISEASE, U 04/12/2019 MORRIS CASAREZ MD, Ot K75. 9 INFLAMMATORY LIVER DISEASE, UNSPECIFIED 04/12/2019 MORRIS CASAREZ MD, Ot M19. 91 PRIMARY OSTEOARTHRITIS, UNSPECIFIED SITE 04/12/2019 MORRIS CASAREZ MD, Ot M48. 00 SPINAL STENOSIS, SITE UNSPECIFIED 04/12/2019 MORRIS CASAREZ MD, Ot N30. 00 ACUTE CYSTITIS WITHOUT HEMATURIA 04/12/2019 MORRIS CASAREZ MD, Ot R29.898 OT SYMPTOMS AND SIGNS INVOLVING THE MUS 04/12/2019 MORRIS CASAREZ MD, Ot R53. 1 WEAKNESS 04/12/2019 MORRIS CASAREZ MD, Ot R53. 83 OTHER FATIGUE 04/12/2019 MORRIS CASAREZ MD, Ot W18.39XA OTHER FALL ON SAME LEVEL, INITIAL ENCOUN 04/12/2019 MORRSI CASAREZ MD, Ot Y92.[address] IN OTH NON-INSTITUTIONAL RESI 04/12/2019 MORRIS CASAREZ MD, Ot Z23 ENCOUNTER FOR IMMUNIZATION 04/12/2019 MORRIS CASAREZ MD, Ot Z68. 39 BODY MASS INDEX (BMI) 39.0-39.9, ADULT 04/12/2019 MORRIS CASAREZ MD, Ot Z79. 4 MECHANICAL RELIABILITY ENGINEER (CURRENT) USE OF INSULIN 04/12/2019 MORRIS CASAREZ MD, Ot Z85. 42 PERSONAL HISTORY OF MALIGNANT NEOPLASM O 04/12/2019 MORRIS CASAREZ MD, Ot Z87. 11 PERSONAL HISTORY OF PEPTIC ULCER DISEASE 04/12/2019 MORRIS CASAREZ MD, Ot Z87.891 PERSONAL HISTORY OF NICOTINE DEPENDENCE 04/12/2019 MORRIS CASAREZ MD, Ot Z88. 2 ALLERGY STATUS TO SULFONAMIDES STATUS 04/12/2019 MORRIS CASAREZ MD, Ot Z88. 5 ALLERGY STATUS TO NARCOTIC AGENT STATUS 04/12/2019 MORRIS CASAREZ MD, Ot Z90.710 ACQUIRED ABSENCE OF BOTH CERVIX AND UTER 04/22/2019 CHELY ESPARZA DO Ot E11.42 TYPE 2 DIABETES MELLITUS WITH DIABETIC P 04/22/2019 CHELY ESPARZA DO Ot E78.5 HYPERLIPIDEMIA, UNSPECIFIED 04/22/2019 CHELY ESPARZA DO Ot F32.9 MAJOR DEPRESSIVE DISORDER, SINGLE EPISOD 04/22/2019 CHELY ESPARZA DO Ot I10 ESSENTIAL (PRIMARY) HYPERTENSION 04/22/2019 CHELY ESPARZA DO Ot I25.11 9 ATHSCL HEART DISEASE OF [place] COR ART W 04/22/2019 CHELY ESPARZA DO Ot I25.2 OLD MYOCARDIAL INFARCTION 04/22/2019 CHELY ESPARZA DO Ot J10.1 FLU DUE TO OT IDENT INFLUENZA VIRUS W O 04/22/2019 CHELY ESPARZA DO Ot M48.06 1 SPINAL STENOSIS, LUMBAR REGION WITHOUT N 04/22/2019 CHELY ESPARZA DO Ot R29.89 8 OT SYMPTOMS AND SIGNS INVOLVING THE MUS 04/22/2019 CHELY ESPARZA DO Ot R53.1 WEAKNESS 04/22/2019 CHELY ESPARZA DO Ot R60.9 EDEMA, UNSPECIFIED 04/22/2019 CHELY ESPARZA DO Ot W19.XX XD UNSPECIFIED FALL, SUBSEQUENT ENCOUNTER 04/22/2019 CHELY ESPARZA DO Ot Y92.01 2 BATHROOM OF SINGLE-FAMILY (PRIVATE) HOUS 04/22/2019 CHELY ESPARZA DO Ot Z79.4 INTERMEDIATE (CURRENT) USE OF INSULIN 04/22/2019 CHELY ESPARZA DO Ot Z85.42 PERSONAL HISTORY OF MALIGNANT NEOPLASM O 04/22/2019 CHELY ESPARZA DO Ot Z87.89 1 PERSONAL HISTORY OF NICOTINE DEPENDENCE 04/22/2019 KARYN ESPARZA DOI Ot Z90.71 0 ACQUIRED ABSENCE OF BOTH CERVIX AND UTER 04/22/2019 CHELY ESPARZA DO Ot Z90.72 2 ACQUIRED ABSENCE OF OVARIES, BILATERAL 04/22/2019 CHELY ESPARZA DO Ot Z90.79 ACQUIRED ABSENCE OF OTHER GENITAL ORGAN( 05/28/2019 BETINA PRETTY, KATI Chappell Ot B37.49 OTHER UROGENITAL CANDIDIASIS 05/28/2019 KATI MOFFETT MD Ot 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 05/28/2019 KATI MOFFETT MD Ot E11.42 TYPE 2 DIABETES MELLITUS WITH DIABETIC P 05/28/2019 KATI MOFFETT MD Ot E78.00 PURE HYPERCHOLESTEROLEMIA, UNSPECIFIED 05/28/2019 KATI MOFFETT MD Ot I10 ESSENTIAL (PRIMARY) HYPERTENSION 05/28/2019 KATI MOFFETT MD Ot I25.10 ATHSCL HEART DISEASE OF [place] CORONARY 05/28/2019 KATI MOFFETT MD Ot J44.1 CHRONIC OBSTRUCTIVE PULMONARY DISEASE W 05/28/2019 KATI MOFFETT MD Ot J45.909 UNSPECIFIED ASTHMA, UNCOMPLICATED 05/28/2019 KATI MOFFETT MD Ot M48.061 SPINAL STENOSIS, LUMBAR REGION WITHOUT N 05/28/2019 KATI MOFFETT MD Ot N39.0 URINARY TRACT INFECTION, SITE NOT SPECIF 05/28/2019 KATI MOFFETT MD Ot R09.02 HYPOXEMIA 05/28/2019 KATI MOFFETT MD Ot R42 DIZZINESS AND GIDDINESS 05/28/2019 KATI MOFFETT MD Ot R53.1 WEAKNESS 05/28/2019 KATI MOFFETT MD, Ot R53.81 OTHER MALAISE 05/28/2019 KATI MOFFETT MD, Ot Z79.4 INTERMEDIATE (CURRENT) USE OF INSULIN 05/28/2019 KATI MOFFETT MD, Ot 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 05/28/2019 KATI MOFFETT MD, Ot Z85.42 PERSONAL HISTORY OF MALIGNANT NEOPLASM O 05/28/2019 KATI MOFFETT MD, Ot Z87.891 PERSONAL HISTORY OF NICOTINE DEPENDENCE 05/28/2019 KATI MOFFETT MD, Ot Z88.1 ALLERGY STATUS TO OTHER ANTIBIOTIC AGENT 05/28/2019 KATI MOFFETT MD, Ot Z88.2 ALLERGY STATUS TO SULFONAMIDES STATUS 05/28/2019 KATI MOFFETT MD, Ot Z88.5 ALLERGY STATUS TO NARCOTIC AGENT STATUS 05/28/2019 KATI MOFFETT MD, Ot Z88.8 ALLERGY STATUS TO OT DRUG/MEDS/BIOL SUB 05/28/2019 KATI MOFFETT MD, Ot Z90.49 ACQUIRED ABSENCE OF OTHER SPECIFIED PART 05/28/2019 KATI MOFFETT MD Ot Z90.710 ACQUIRED ABSENCE OF BOTH CERVIX AND UTER 05/28/2019 KATI MOFFETT MD, Ot Z90.89 ACQUIRED ABSENCE OF OTHER ORGANS 05/31/2019 KATI MOFFETT MD, Ot B37.49 OTHER UROGENITAL CANDIDIASIS 05/31/2019 KATI MOFFETT MD, Ot 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 05/31/2019 KATI MOFFETT MD Ot E11.42 TYPE 2 DIABETES MELLITUS WITH DIABETIC P 05/31/2019 KATI MOFFETT MD, Ot E78.00 PURE HYPERCHOLESTEROLEMIA, UNSPECIFIED 05/31/2019 KATI MOFFETT MD, Ot I10 ESSENTIAL (PRIMARY) HYPERTENSION 05/31/2019 KATI MOFFETT MD, Ot I25.10 ATHSCL HEART DISEASE OF [place] CORONARY 05/31/2019 KATI MOFFETT MD, Ot J44.1 CHRONIC OBSTRUCTIVE PULMONARY DISEASE W 05/31/2019 KATI MOFFETT MD, Ot J45.909 UNSPECIFIED ASTHMA, UNCOMPLICATED 05/31/2019 KATI MOFFETT MD, Ot M48.061 SPINAL STENOSIS, LUMBAR REGION WITHOUT N 05/31/2019 KATI MOFFETT MD, Ot N39.0 URINARY TRACT INFECTION, SITE NOT SPECIF 05/31/2019 KATI MOFFETT MD, Ot R09.02 HYPOXEMIA 05/31/2019 KATI MOFFETT MD, Ot R42 DIZZINESS AND GIDDINESS 05/31/2019 KATI MOFFETT MD, Ot R53.1 WEAKNESS 05/31/2019 KATI MOFFETT MD, Ot R53.81 OTHER MALAISE 05/31/2019 KATI MOFFETT MD, Ot Z79.4 INTERMEDIATE (CURRENT) USE OF INSULIN 05/31/2019 KATI MOFFETT MD, Ot 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 05/31/2019 KATI MOFFETT MD, Ot Z85.42 PERSONAL HISTORY OF MALIGNANT NEOPLASM O 05/31/2019 KATI MOFFETT MD, Ot Z87.891 PERSONAL HISTORY OF NICOTINE DEPENDENCE 05/31/2019 KATI MOFFETT MD, Ot Z88.1 ALLERGY STATUS TO OTHER ANTIBIOTIC AGENT 05/31/2019 KATI MOFFETT MD, Ot Z88.2 ALLERGY STATUS TO SULFONAMIDES STATUS 05/31/2019 KATI MOFFETT MD, Ot Z88.5 ALLERGY STATUS TO NARCOTIC AGENT STATUS 05/31/2019 KATI MOFFETT MD, Ot Z88.8 ALLERGY STATUS TO OTH DRUG/MEDS/BIOL SUB 05/31/2019 KATI MOFFETT MD, Ot Z90.49 ACQUIRED ABSENCE OF OTHER SPECIFIED PART 05/31/2019 KATI MOFFETT MD Ot Z90.710 ACQUIRED ABSENCE OF BOTH CERVIX AND UTER 05/31/2019 KATI MOFFETT MD, Ot Z90.89 ACQUIRED ABSENCE OF OTHER ORGANS 06/03/2019 KATI MOFFETT MD, Ot B37.49 OTHER UROGENITAL CANDIDIASIS 06/03/2019 KATI MOFFETT MD, Ot 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 06/03/2019 KATI MOFFETT MD Ot E11.42 TYPE 2 DIABETES MELLITUS WITH DIABETIC P 06/03/2019 KATI MOFFETT MD, Ot E78.00 PURE HYPERCHOLESTEROLEMIA, UNSPECIFIED 06/03/2019 KATI MOFFETT MD, Ot I10 ESSENTIAL (PRIMARY) HYPERTENSION 06/03/2019 KATI MOFFETT MD, Ot I25.10 ATHSCL HEART DISEASE OF [place] CORONARY 06/03/2019 KATI MOFFETT MD, Ot J44.1 CHRONIC OBSTRUCTIVE PULMONARY DISEASE W 06/03/2019 KATI MOFFETT MD, Ot J45.909 UNSPECIFIED ASTHMA, UNCOMPLICATED 06/03/2019 AKTI MOFFETT MD, Ot M48.061 SPINAL STENOSIS, LUMBAR REGION WITHOUT N 06/03/2019 KATI MOFFETT MD, Ot N39.0 URINARY TRACT INFECTION, SITE NOT SPECIF 06/03/2019 KATI MOFFETT MD Ot R09.02 HYPOXEMIA 06/03/2019 KATI MOFFETT MD, Ot R42 DIZZINESS AND GIDDINESS 06/03/2019 KATI MOFFETT MD Ot R53.1 WEAKNESS 06/03/2019 KATI MOFFETT MD, Ot R53.81 OTHER MALAISE 06/03/2019 KATI MOFFETT MD, Ot 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 06/03/2019 KATI MOFFETT MD, Ot Z79.82 INTERMEDIATE (CURRENT) USE OF ASPIRIN 06/03/2019 KATI MOFFETT MD, Ot Z85.42 PERSONAL HISTORY OF MALIGNANT NEOPLASM O 06/03/2019 KATI MOFFETT MD, Ot Z87.891 PERSONAL HISTORY OF NICOTINE DEPENDENCE 06/03/2019 KATI MOFFETT MD, Ot Z88.1 ALLERGY STATUS TO OTHER ANTIBIOTIC AGENT 06/03/2019 KATI MOFFETT MD, Ot Z88.2 ALLERGY STATUS TO SULFONAMIDES STATUS 06/03/2019 BRUEGGEMANN MD, KATI T Ot Z88.5 ALLERGY STATUS TO NARCOTIC AGENT STATUS 06/03/2019 KTAI MOFFETT MD Ot Z88.8 ALLERGY STATUS TO OTH DRUG/MEDS/BIOL SUB 06/03/2019 KATI MOFFETT MD Ot Z90.49 ACQUIRED ABSENCE OF OTHER SPECIFIED PART 06/03/2019 KATI MOFFETT MD Ot Z90.710 ACQUIRED ABSENCE OF BOTH CERVIX AND UTER 06/03/2019 KATI MOFFETT MD Ot Z90.89 ACQUIRED ABSENCE OF OTHER ORGANS 07/05/2019 KARY MEHTA MD Ot E11.42 TYPE 2 DIABETES MELLITUS WITH DIABETIC P 07/05/2019 KARY MEHTA MD Ot E78.00 PURE HYPERCHOLESTEROLEMIA, UNSPECIFIED 07/05/2019 KARY MEHTA MD Ot E87.2 ACIDOSIS 07/05/2019 KARY MEHTA MD Ot E87.70 FLUID OVERLOAD, UNSPECIFIED 07/05/2019 KARY MEHTA MD Ot G89.29 OTHER CHRONIC PAIN 07/05/2019 KARY MEHTA MD Ot I1 0 ESSENTIAL (PRIMARY) HYPERTENSION 07/05/2019 KARY MEHTA MD Ot I25.10 ATHSCL HEART DISEASE OF [place] CORONARY 07/05/2019 KARY MEHTA MD Ot J18.1 LOBAR PNEUMONIA, UNSPECIFIED ORGANISM 07/05/2019 KARY MEHTA MD Ot J44.9 CHRONIC OBSTRUCTIVE PULMONARY DISEASE, U 07/05/2019 KARY MEHTA MD Ot J9 0 PLEURAL EFFUSION, NOT ELSEWHERE CLASSIFI 07/05/2019 KARY MEHTA MD Ot J98.11 ATELECTASIS 07/05/2019 KARY MEHTA MD Ot M19.91 PRIMARY OSTEOARTHRITIS, UNSPECIFIED SITE 07/05/2019 KARY MEHTA MD Ot M54.9 DORSALGIA, UNSPECIFIED 07/05/2019 KARY MEHTA MD Ot R09.02 HYPOXEMIA 07/05/2019 KARY MEHTA MD Ot R53.1 WEAKNESS 07/05/2019 KARY MEHTA MD Ot T17.928A FOOD IN RESP TRACT, PART UNSP CAUSING OT 07/05/2019 KARY MEHTA MD Ot Z79.4 INTERMEDIATE (CURRENT) USE OF INSULIN 07/05/2019 KARY MEHTA MD Ot Z85.42 PERSONAL HISTORY OF MALIGNANT NEOPLASM O 07/05/2019 KARY MEHTA MD Ot Z86.19 PERSONAL HISTORY OF OTHER INFECTIOUS AND 07/05/2019 KARY MEHTA MD Ot Z87.11 PERSONAL HISTORY OF PEPTIC ULCER DISEASE 07/05/2019 KARY MEHTA MD Ot Z87.891 PERSONAL HISTORY OF NICOTINE DEPENDENCE 07/05/2019 KARY MEHTA MD Ot Z88.2 ALLERGY STATUS TO SULFONAMIDES STATUS 07/05/2019 KARY MEHTA MD Ot Z88.5 ALLERGY STATUS TO NARCOTIC AGENT STATUS 07/05/2019 KARY MEHTA MD Ot Z90.710 ACQUIRED ABSENCE OF BOTH CERVIX AND UTER 07/05/2019 KARY MEHTA MD Ot Z90.722 ACQUIRED ABSENCE OF OVARIES, BILATERAL 07/05/2019 KARY MEHTA MD Ot Z90.79 ACQUIRED ABSENCE OF OTHER GENITAL ORGAN( 07/05/2019 ARNOLD PRETTY, BOBY [place] Ot 787.91 DIARRHEA 07/05/2019 BASIM MASSEY MD Ot E78. 2 MIXED HYPERLIPIDEMIA 07/05/2019 BASIM MASSEY MD Ot G89. 4 CHRONIC PAIN SYNDROME 07/05/2019 BASIM MASSEY MD Ot I10 ESSENTIAL (PRIMARY) HYPERTENSION 07/05/2019 BASIM MASSEY MD Ot I49. 3 VENTRICULAR PREMATURE DEPOLARIZATION 07/05/2019 BASIM MASSEY MD Ot M54. 2 CERVICALGIA 07/05/2019 BASIM MASSEY MD Ot R00. 2 PALPITATIONS 07/13/2019 CHELY ESPARZA DO Ot B37.0 CANDIDAL STOMATITIS 07/13/2019 KARYN ESPARZA DOI Ot E11.40 TYPE 2 DIABETES MELLITUS WITH DIABETIC N 07/13/2019 KARYN ESPARZA DOI Ot E78.00 PURE HYPERCHOLESTEROLEMIA, UNSPECIFIED 07/13/2019 KARYN ESPARZA DOI Ot G72.89 OTHER SPECIFIED MYOPATHIES 07/13/2019 KARYN ESPARZA DOI Ot I10 ESSENTIAL (PRIMARY) HYPERTENSION 07/13/2019 CHELY ESPARZA DO Ot I25.10 ATHSCL HEART DISEASE OF [place] CORONARY 07/13/2019 CHELY ESPARZA DO Ot J18.1 LOBAR PNEUMONIA, UNSPECIFIED ORGANISM 07/13/2019 ESPARZA DO, CHELY Ot J43.9 EMPHYSEMA, UNSPECIFIED 07/13/2019 ESPARZA DO, CHELY Ot M19.91 PRIMARY OSTEOARTHRITIS, UNSPECIFIED SITE 07/13/2019 ESPARZA DO, CHELY Ot M54.9 DORSALGIA, UNSPECIFIED 07/13/2019 ESPARZA DO, CHELY Ot R09.02 HYPOXEMIA 07/13/2019 ESPARZA DO, CHELY Ot 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 07/13/2019 ESPARZA DO, CHELY Ot Z87.89 1 PERSONAL HISTORY OF NICOTINE DEPENDENCE 07/13/2019 ESPARZA DO, CHELY Ot Z90.49 ACQUIRED ABSENCE OF OTHER SPECIFIED PART 07/13/2019 ESPARZA DO, CHELY Ot Z90.71 0 ACQUIRED ABSENCE OF BOTH CERVIX AND UTER 07/13/2019 ESPARZA DO, CHELY Ot Z90.72 2 ACQUIRED ABSENCE OF OVARIES, BILATERAL 07/13/2019 ESPARZA DO, CHELY Ot Z90.89 ACQUIRED ABSENCE OF OTHER ORGANS 07/18/2019 ESPARZA DO, CHELY Ot B37.0 CANDIDAL STOMATITIS 07/18/2019 ESPARZA DO, CHELY Ot B37.2 CANDIDIASIS OF SKIN AND NAIL 07/18/2019 ESPARZA DO, CHELY Ot E11.40 TYPE 2 DIABETES MELLITUS WITH DIABETIC N 07/18/2019 ISAIAS DONALD, CHELY Ot E11.64 9 TYPE 2 DIABETES MELLITUS WITH HYPOGLYCEM 07/18/2019 ESPARZA DO, CHELY Ot E78.00 PURE HYPERCHOLESTEROLEMIA, UNSPECIFIED 07/18/2019 ESPARZA DO, CHELY Ot E87.70 FLUID OVERLOAD, UNSPECIFIED 07/18/2019 ESPARZA DO, CHELY Ot G72.89 OTHER SPECIFIED MYOPATHIES 07/18/2019 ESPARZA DO, CHELY Ot I10 ESSENTIAL (PRIMARY) HYPERTENSION 07/18/2019 ESPARZA DO, CHELY Ot I25.10 ATHSCL HEART DISEASE OF [place] CORONARY 07/18/2019 ESPARZA DO, CHELY Ot J18.1 LOBAR PNEUMONIA, UNSPECIFIED ORGANISM 07/18/2019 ESPARZA DO, CHELY Ot J43.9 EMPHYSEMA, UNSPECIFIED 07/18/2019 ESPARZA DO, CHELY Ot K59.00 CONSTIPATION, UNSPECIFIED 07/18/2019 ESPARZA DO, CHELY Ot M19.91 PRIMARY OSTEOARTHRITIS, UNSPECIFIED SITE 07/18/2019 ESPARZA DO CHELY Ot M54.9 DORSALGIA, UNSPECIFIED 07/18/2019 CHELY ESPARZA DO Ot R09.02 HYPOXEMIA 07/18/2019 KARYN ESPARZA DOI Ot Z79.4 INTERMEDIATE (CURRENT) USE OF INSULIN 07/18/2019 ISAIAS DONALD CHELY Ot Z87.89 1 PERSONAL HISTORY OF NICOTINE DEPENDENCE 07/18/2019 ISAIAS DONALD CHELY Ot Z90.49 ACQUIRED ABSENCE OF OTHER SPECIFIED PART 07/18/2019 ISAIAS DONALD CHELY Ot Z90.71 0 ACQUIRED ABSENCE OF BOTH CERVIX AND UTER 07/18/2019 ISAIAS DONALD CHELY Ot Z90.72 2 ACQUIRED ABSENCE OF OVARIES, BILATERAL 07/18/2019 ISAIAS DONALD CHELY Ot Z90.89 ACQUIRED ABSENCE OF OTHER ORGANS 08/12/2019 W Z09 Hospit al discharge follow-up DrakeJose Raul 08/12/2019 W R30.0 Dysuria Obed Kary 08/12/2019 W E11.65 Typ e 2 diabetes mellitus with hyperglycemia Obed Kary 08/25/2019 W R30.0 Dysuria Obed Kary 09/07/2019 W M62.81 Mus tone weakness Drake, Jose Raul 09/08/2019 W M62.81 Mus tone weakness Drake, Jose Raul 10/06/2019 W R53.1 Weakness Drake, Jose Raul 10/06/2019 W R53.83 Ot er fatigue Drake, Jose Raul 10/06/2019 W R53.1 Weakness Drake Jose Raul 10/06/2019 W R53.83 [facility] er fatigue Drake Jose Raul 10/07/2019 W R53.1 Weakness Drake, Jose Raul 10/07/2019 W R53.83 [facility] er fatigue Drake Jose Raul 10/20/2019 W 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 Results Test Result Range Automated blood complete blood count (he mogram) panel - 07/23/16 07:22 Blood leukocytes automated count (number/volume) 8.6 10*3/uL 4.3-11.0 Blood erythrocytes automated count (number/volume) 5.18 10*6/uL 4.35-5.85 Venous blood hemoglobin measurement (mass/volume) 16.2 g/dL 11.5-16.0 Blood hematocrit (volume fraction) 48 % 35-52 Automated erythrocyte mean corpuscular volume 92 [ foz_us] 80-99 Automated erythrocyte mean corpuscular h emoglobin (mass per erythrocyte) 31 pg 25-34 Automated erythrocyte mean corpuscular h emoglobin concentration measurement (mass/volume) 34 g/dL 32-36 Automated erythrocyte distribution width ratio 12. 2 % 10.0- 14.5 Automated blood platelet count (count/volume) 187 10*3/uL 130-400 Automated blood platelet mean volume measurement 10.7 [foz_us] 7.4-10.4 PT panel in platelet poor plasma by coag ulation assay - 07/23/16 07:22 Prothrombin time (PT) in platelet poor plasma by coagu lation assay 12.5 s 12.2-14.7 INR in platelet poor plasma or blood by coagulation as say 1.0 0.8-1.4 Complete urinalysis with reflex to cultu re - 07/23/16 07:22 Urine color determination YELLOW NRG Urine clarity determination CLEAR NR G Urine pH measurement by test strip 6.5 5-9 Specific gravity of urine by test strip 1.015 1.016-1.022 Urine protein assay by test strip, semi-quantitative 1+ NEGATIVE Urine glucose detection by automated test strip NE GATIVE NEGATIVE Erythrocytes detection in urine sediment by light micr oscopy NEGATIVE NEGATIVE Urine ketones detection by automated test strip NE GATIVE NEGATIVE Urine nitrite detection by test strip NEGATIVE NEGATIVE Urine total bilirubin detection by test strip NEGA TIVE NEGATIVE Urine urobilinogen measurement by automated test strip (mass/volume) 1 mg/dL NORMAL Urine leukocyte esterase detection by dipstick 1+ NEGATIVE Automated urine sediment erythrocyte cou nt by microscopy (number/high power field) NONE NRG Automated urine sediment leukocyte count by microscopy (number/high power field) [HPF] NRG Bacteria detection in urine sediment by light microsco py FEW NRG Squamous epithelial cells detection in u rine sediment by light microscopy 10-25 NRG Crystals detection in urine sediment by light microsco py NONE NRG Casts detection in urine sediment by light microscopy NONE NRG Mucus detection in urine sediment by light microscopy MODERATE NRG Complete urinalysis with reflex to culture YES NR Comprehensive metabolic panel - 07/23/16 07:22 Serum or plasma sodium measurement (moles/volume) 141 mmol/L 135-145 Serum or plasma potassium measurement (moles/volume) 3.5 mmol/L 3.6-5.0 Serum or plasma chloride measurement (moles/volume) 101 mmol/L 98-107 Carbon dioxide 27 mmol/L 21-32 Serum or plasma anion gap determination (moles/volume) 13 mmol/L 5-14 Serum or plasma urea nitrogen measurement (mass/volume ) 12 mg/dL 7-18 Serum or plasma creatinine measurement (mass/volume) 0.84 mg/dL 0.60-1.30 Serum or plasma urea nitrogen/creatinine mass ratio 14 NRG Serum or plasma creatinine measurement w ith calculation of estimated glomerular filtration rate > NRG Serum or plasma glucose measurement (mass/volume) 158 mg/dL 70-105 Serum or plasma calcium measurement (mass/volume) 9.7 mg/dL 8.5-10.1 Serum or plasma total bilirubin measurement (mass/volu me) 0.9 mg/dL 0.1-1.0 Serum or plasma alkaline phosphatase marguerite surement (enzymatic activity/volume) 65 U/L 40-136 Serum or plasma aspartate aminotransfera se measurement (enzymatic activity/volume) 48 U/L 5-34 Serum or plasma alanine aminotransferase measurement (enzymatic activity/volume) 49 U/L 0-55 Serum or plasma protein measurement (mass/volume) 6.7 g/dL 6.4-8.2 Serum or plasma albumin measurement (mass/volume) 3.9 g/dL 3.2-4.5 Lipid 1996 panel - 07/23/16 07:22 Serum or plasma triglyceride measurement (mass/volume) 228 mg/dL <150 Serum or plasma cholesterol measurement (mass/volume) 264 mg/dL < 200 Serum or plasma cholesterol in HDL measurement (mass/v olume) 48 mg/dL 40-60 Cholesterol in LDL [mass/volume] in serum or plasma by direct assay 184 mg/dL 1-129 Serum or plasma cholesterol in VLDL measurement (mass/ volume) 46 mg/dL 5-40 Bacterial urine culture - 07/23/16 07:22 URINE CULTURE RESULTS <10,000/ML NRG Capillary blood glucose measurement by g lucometer (mass/volume) - 08/07/17 09:01 Capillary blood glucose measurement by glucometer (mas s/volume) 116 mg/dL 70-110 Capillary blood glucose measurement by g lucometer (mass/volume) - 08/21/17 07:58 Capillary blood glucose measurement by glucometer (mas s/volume) 105 mg/dL 70-110 Complete blood count (CBC) with automate d white blood cell (WBC) differential - 01/16/19 07:19 Blood leukocytes automated count (number/volume) 7.8 10*3/uL 4.3-11.0 Blood erythrocytes automated count (number/volume) 4.20 10*6/uL 4.35-5.85 Venous blood hemoglobin measurement (mass/volume) 14.2 g/dL 11.5-16.0 Blood hematocrit (volume fraction) 41 % 35-52 Automated erythrocyte mean corpuscular volume 97 [ foz_us] 80-99 Automated erythrocyte mean corpuscular h emoglobin (mass per erythrocyte) 34 pg 25-34 Automated erythrocyte mean corpuscular h emoglobin concentration measurement (mass/volume) 35 g/dL 32-36 Automated erythrocyte distribution width ratio 12. 3 % 10.0- 14.5 Automated blood platelet count (count/volume) 158 10*3/uL 130-400 Automated blood platelet mean volume measurement 9.8 [foz_us] 7.4-10.4 Automated blood neutrophils/100 leukocytes 59 % 42-75 Automated blood lymphocytes/100 leukocytes 25 % 12-44 Blood monocytes/100 leukocytes 13 % 0-12 Automated blood eosinophils/100 leukocytes 2 % 0-10 Automated blood basophils/100 leukocytes 1 % 0-10 Blood neutrophils automated count (number/volume) 4.6 10*3 1.8-7.8 Blood lymphocytes automated count (number/volume) 2.0 10*3 1.0-4.0 Blood monocytes automated count (number/volume) 1. 0 10*3 0.0-1.0 Automated eosinophil count 0.2 10*3/uL 0 .0-0.3 Automated blood basophil count (count/volume) 0.0 10*3/uL 0.0-0.1 Comprehensive metabolic panel - 01/16/19 07:19 Serum or plasma sodium measurement (moles/volume) 134 mmol/L 135-145 Serum or plasma potassium measurement (moles/volume) 3.8 mmol/L 3.6-5.0 Serum or plasma chloride measurement (moles/volume) 97 mmol/L 98-107 Carbon dioxide 23 mmol/L 21-32 Serum or plasma anion gap determination (moles/volume) 14 mmol/L 5-14 Serum or plasma urea nitrogen measurement (mass/volume ) 14 mg/dL 7-18 Serum or plasma creatinine measurement (mass/volume) 1.05 mg/dL 0.60-1.30 Serum or plasma urea nitrogen/creatinine mass ratio 13 NRG Serum or plasma creatinine measurement w ith calculation of estimated glomerular filtration rate 51 NRG Serum or plasma glucose measurement (mass/volume) 102 mg/dL 70-105 Serum or plasma calcium measurement (mass/volume) 9.4 mg/dL 8.5-10.1 Serum or plasma total bilirubin measurement (mass/volu me) 0.8 mg/dL 0.1-1.0 Serum or plasma alkaline phosphatase marguerite surement (enzymatic activity/volume) 56 U/L 40-136 Serum or plasma aspartate aminotransfera se measurement (enzymatic activity/volume) 15 U/L 5-34 Serum or plasma alanine aminotransferase measurement (enzymatic activity/volume) 11 U/L 0-55 Serum or plasma protein measurement (mass/volume) 6.2 g/dL 6.4-8.2 Serum or plasma albumin measurement (mass/volume) 3.6 g/dL 3.2-4.5 CALCIUM CORRECTED 9.7 mg/dL 8.5-10.1 PT panel in platelet poor plasma by coag ulation assay - 01/16/19 07:19 Prothrombin time (PT) in platelet poor plasma by coagu lation assay 14.2 s 12.2-14.7 INR in platelet poor plasma or blood by coagulation as say 1.1 0.8-1.4 Activated partial thromboplastin time (a PTT) in platelet poor plasma bycoagulation assay - 01/16/19 07:19 Activated partial thromboplastin time (a PTT) in platelet poor plasma bycoagulation assay 27 s 24-35 Fibrin D-dimer FEU measurement in platel et poor plasma (mass/volume) - 01/16/19 07:19 Fibrin D-dimer FEU measurement in platelet poor plasma (mass/volume) 0.83 ug/mL 0.00-0.49 Serum or plasma troponin i.cardiac measu rement (mass/volume) - 01/16/19 07:19 Serum or plasma troponin i.cardiac measurement (mass/v olume) < ng/mL <0.028 Serum or plasma lithium measurement (mol es/volume) - 01/16/19 07:20 BNP PT 243.9 pg/mL <100.0 Capillary blood glucose measurement by g lucometer (mass/volume) - 01/16/19 07:35 Capillary blood glucose measurement by glucometer (mas s/volume) 111 mg/dL 70-110 Complete urinalysis with reflex to cultu re - 01/16/19 09:00 Urine color determination YELLOW NRG Urine clarity determination SLIGHTLY CLOUDY NRG Urine pH measurement by test strip 6.5 5-9 Specific gravity of urine by test strip 1.010 1.016-1.022 Urine protein assay by test strip, semi-quantitative 2+ NEGATIVE Urine glucose detection by automated test strip NE GATIVE NEGATIVE Erythrocytes detection in urine sediment by light micr oscopy 3+ NEGATIVE Urine ketones detection by automated test strip NE GATIVE NEGATIVE Urine nitrite detection by test strip POSITIVE NEGATIVE Urine total bilirubin detection by test strip NEGA TIVE NEGATIVE Urine urobilinogen measurement by automated test strip (mass/volume) NORMAL NORMAL Urine leukocyte esterase detection by dipstick 3+ NEGATIVE Automated urine sediment erythrocyte cou nt by microscopy (number/high power field) NONE NRG Automated urine sediment leukocyte count by microscopy (number/high power field) TNTC NRG Bacteria detection in urine sediment by light microsco py LARGE NRG Squamous epithelial cells detection in u rine sediment by light microscopy RARE NRG Crystals detection in urine sediment by light microsco py NONE NRG Casts detection in urine sediment by light microscopy NONE NRG Mucus detection in urine sediment by light microscopy NEGATIVE NRG Complete urinalysis with reflex to culture YES NRG Bacterial urine culture - 01/16/19 09:00 Bacterial urine culture [id number] NRG COLONY COUNT >100,000/ML NRG FTX;REPORTABLE SUSCEPTIBILITY REPORTED 01/18/19 8:25 NRG FREE TEXT ENTRY 2 ID REPORTED 01/17/19 8:05 NRG Dirithromycin susceptibility test by dis k diffusion - 01/16/19 09:00 Oxacillin susceptibility test by minimum inhibitory co ncentration 0.5 NRG Trimethoprim/sulfamethoxazole susceptibi lity test by minimum inhibitoryconcentration <= NRG Vancomycin susceptibility test by minimum inhibitory c oncentration 2 NRG Levofloxacin susceptibility test by minimum inhibitory concentration <= NRG Rifampin susceptibility test by minimum inhibitory con centration <= NRG Cefazolin susceptibility test by minimum inhibitory co ncentration <= NRG Nitrofurantoin susceptibility test by mi nimum inhibitory concentration <= NRG Complete blood count (CBC) with automate d white blood cell (WBC) differential - 04/09/19 11:30 Blood leukocytes automated count (number/volume) 7.1 10*3/uL 4.3-11.0 Blood erythrocytes automated count (number/volume) 4.49 10*6/uL 4.35-5.85 Venous blood hemoglobin measurement (mass/volume) 15.2 g/dL 11.5-16.0 Blood hematocrit (volume fraction) 43 % 35-52 Automated erythrocyte mean corpuscular volume 97 [ foz_us] 80-99 Automated erythrocyte mean corpuscular h emoglobin (mass per erythrocyte) 34 pg 25-34 Automated erythrocyte mean corpuscular h emoglobin concentration measurement (mass/volume) 35 g/dL 32-36 Automated erythrocyte distribution width ratio 12. 7 % 10.0- 14.5 Automated blood platelet count (count/volume) 148 10*3/uL 130-400 Automated blood platelet mean volume measurement 10.8 [foz_us] 7.4-10.4 Automated blood neutrophils/100 leukocytes 71 % 42-75 Automated blood lymphocytes/100 leukocytes 19 % 12-44 Blood monocytes/100 leukocytes 8 % 0-12 Automated blood eosinophils/100 leukocytes 2 % 0-10 Automated blood basophils/100 leukocytes 0 % 0-10 Blood neutrophils automated count (number/volume) 5.0 10*3 1.8-7.8 Blood lymphocytes automated count (number/volume) 1.4 10*3 1.0-4.0 Blood monocytes automated count (number/volume) 0. 5 10*3 0.0-1.0 Automated eosinophil count 0.2 10*3/uL 0 .0-0.3 Automated blood basophil count (count/volume) 0.0 10*3/uL 0.0-0.1 Comprehensive metabolic panel - 04/09/19 11:30 Serum or plasma sodium measurement (moles/volume) 135 mmol/L 135-145 Serum or plasma potassium measurement (moles/volume) 4.1 mmol/L 3.6-5.0 Serum or plasma chloride measurement (moles/volume) 101 mmol/L 98-107 Carbon dioxide 20 mmol/L 21-32 Serum or plasma anion gap determination (moles/volume) 14 mmol/L 5-14 Serum or plasma urea nitrogen measurement (mass/volume ) 15 mg/dL 7-18 Serum or plasma creatinine measurement (mass/volume) 0.88 mg/dL 0.60-1.30 Serum or plasma urea nitrogen/creatinine mass ratio 17 NRG Serum or plasma creatinine measurement w ith calculation of estimated glomerular filtration rate > NRG Serum or plasma glucose measurement (mass/volume) 153 mg/dL 70-105 Serum or plasma calcium measurement (mass/volume) 8.2 mg/dL 8.5-10.1 Serum or plasma total bilirubin measurement (mass/volu me) 0.7 mg/dL 0.1-1.0 Serum or plasma alkaline phosphatase marguerite surement (enzymatic activity/volume) 43 U/L 40-136 Serum or plasma aspartate aminotransfera se measurement (enzymatic activity/volume) 35 U/L 5-34 Serum or plasma alanine aminotransferase measurement (enzymatic activity/volume) 19 U/L 0-55 Serum or plasma protein measurement (mass/volume) 5.6 g/dL 6.4-8.2 Serum or plasma albumin measurement (mass/volume) 3.3 g/dL 3.2-4.5 CALCIUM CORRECTED 8.8 mg/dL 8.5-10.1 Serum or plasma troponin i.cardiac measu rement (mass/volume) - 04/09/19 11:30 Serum or plasma troponin i.cardiac measurement (mass/v olume) < ng/mL <0.028 Serum or plasma C reactive protein measu rement (mass/volume) - 04/09/19 11:30 Serum or plasma C reactive protein measurement (mass/v olume) 0.08 mg/dL 0.00-0.50 Complete urinalysis with reflex to cultu re - 04/09/19 12:46 Urine color determination MARSHAL NRG Urine clarity determination CLEAR NR G Urine pH measurement by test strip 5 5-9 Specific gravity of urine by test strip 1.025 1.016-1.022 Urine protein assay by test strip, semi-quantitative 1+ NEGATIVE Urine glucose detection by automated test strip NE GATIVE NEGATIVE Erythrocytes detection in urine sediment by light micr oscopy NEGATIVE NEGATIVE Urine ketones detection by automated test strip NE GATIVE NEGATIVE Urine nitrite detection by test strip NEGATIVE NEGATIVE Urine total bilirubin detection by test strip 1+ NEGATIVE Urine urobilinogen measurement by automated test strip (mass/volume) 1 mg/dL NORMAL Urine leukocyte esterase detection by dipstick 2+ NEGATIVE Automated urine sediment erythrocyte cou nt by microscopy (number/high power field) NONE NRG Automated urine sediment leukocyte count by microscopy (number/high power field) [HPF] NRG Bacteria detection in urine sediment by light microsco py MODERATE NRG Crystals detection in urine sediment by light microsco py NONE NRG Casts detection in urine sediment by light microscopy NONE NRG Mucus detection in urine sediment by light microscopy MODERATE NRG Complete urinalysis with reflex to culture YES NRG Bacterial urine culture - 04/09/19 12:46 Bacterial urine culture 3 OR MORE NRG COLONY COUNT >100,000/ML NRG FTX;REPORTABLE SUGGESTING PROBABLE COLLECTION NRG FREE TEXT ENTRY 2 CONTAMINATION WITH SKIN EDWIN NRG FREE TEXT ENTRY 3 NO SUSCEPTIBILITY PERFORMED NRG Bacterial blood culture - 04/09/19 13:57 FREE TEXT EXTERNAL (NOT STREPTOCOCCUS PNEUMONIAE) NRG QUANTITY OF GROWTH . NRG Bacterial blood culture SEE COMMEN NRG Blood lactic acid measurement (moles/vol ume) - 04/09/19 14:05 Blood lactic acid measurement (moles/volume) 1.23 mmol/L 0.50-2.00 Bacterial blood culture - 04/09/19 14:05 Bacterial blood culture NG NRG Capillary blood glucose measurement by g lucometer (mass/volume) - 04/09/19 14:11 Capillary blood glucose measurement by glucometer (mas s/volume) 171 mg/dL 70-110 Capillary blood glucose measurement by g lucometer (mass/volume) - 04/09/19 15:48 Capillary blood glucose measurement by glucometer (mas s/volume) 148 mg/dL 70-110 Capillary blood glucose measurement by g lucometer (mass/volume) - 04/09/19 20:48 Capillary blood glucose measurement by glucometer (mas s/volume) 175 mg/dL 70-110 Complete blood count (CBC) with automate d white blood cell (WBC) differential - 04/10/19 03:54 Blood leukocytes automated count (number/volume) 7.2 10*3/uL 4.3-11.0 Blood erythrocytes automated count (number/volume) 4.13 10*6/uL 4.35-5.85 Venous blood hemoglobin measurement (mass/volume) 13.9 g/dL 11.5-16.0 Blood hematocrit (volume fraction) 41 % 35-52 Automated erythrocyte mean corpuscular volume 98 [ foz_us] 80-99 Automated erythrocyte mean corpuscular h emoglobin (mass per erythrocyte) 34 pg 25-34 Automated erythrocyte mean corpuscular h emoglobin concentration measurement (mass/volume) 34 g/dL 32-36 Automated erythrocyte distribution width ratio 12. 5 % 10.0- 14.5 Automated blood platelet count (count/volume) 164 10*3/uL 130-400 Automated blood platelet mean volume measurement 10.3 [foz_us] 7.4-10.4 Automated blood neutrophils/100 leukocytes 58 % 42-75 Automated blood lymphocytes/100 leukocytes 27 % 12-44 Blood monocytes/100 leukocytes 12 % 0-12 Automated blood eosinophils/100 leukocytes 3 % 0-10 Automated blood basophils/100 leukocytes 0 % 0-10 Blood neutrophils automated count (number/volume) 4.2 10*3 1.8-7.8 Blood lymphocytes automated count (number/volume) 2.0 10*3 1.0-4.0 Blood monocytes automated count (number/volume) 0. 9 10*3 0.0-1.0 Automated eosinophil count 0.2 10*3/uL 0 .0-0.3 Automated blood basophil count (count/volume) 0.0 10*3/uL 0.0-0.1 Whole blood basic metabolic panel - 03/16 12/31 03:54 Serum or plasma sodium measurement (moles/volume) 134 mmol/L 135-145 Serum or plasma potassium measurement (moles/volume) 3.5 mmol/L 3.6-5.0 Serum or plasma chloride measurement (moles/volume) 98 mmol/L 98-107 Carbon dioxide 23 mmol/L 21-32 Serum or plasma anion gap determination (moles/volume) 13 mmol/L 5-14 Serum or plasma urea nitrogen measurement (mass/volume ) 17 mg/dL 7-18 Serum or plasma creatinine measurement (mass/volume) 0.98 mg/dL 0.60-1.30 Serum or plasma urea nitrogen/creatinine mass ratio 17 NRG Serum or plasma creatinine measurement w ith calculation of estimated glomerular filtration rate 55 NRG Serum or plasma glucose measurement (mass/volume) 128 mg/dL 70-105 Serum or plasma calcium measurement (mass/volume) 9.0 mg/dL 8.5-10.1 Capillary blood glucose measurement by g lucometer (mass/volume) - 04/10/19 11:34 Capillary blood glucose measurement by glucometer (mas s/volume) 79 mg/dL 70-110 Capillary blood glucose measurement by g lucometer (mass/volume) - 04/10/19 15:27 Capillary blood glucose measurement by glucometer (mas s/volume) 115 mg/dL 70-110 Capillary blood glucose measurement by g lucometer (mass/volume) - 04/10/19 20:14 Capillary blood glucose measurement by glucometer (mas s/volume) 139 mg/dL 70-110 Capillary blood glucose measurement by g lucometer (mass/volume) - 04/11/19 05:39 Capillary blood glucose measurement by glucometer (mas s/volume) 95 mg/dL 70-110 Capillary blood glucose measurement by g lucometer (mass/volume) - 04/11/19 10:30 Capillary blood glucose measurement by glucometer (mas s/volume) 143 mg/dL 70-110 Capillary blood glucose measurement by g lucometer (mass/volume) - 04/11/19 15:02 Capillary blood glucose measurement by glucometer (mas s/volume) 130 mg/dL 70-110 Capillary blood glucose measurement by g lucometer (mass/volume) - 04/11/19 19:41 Capillary blood glucose measurement by glucometer (mas s/volume) 115 mg/dL 70-110 Automated blood complete blood count (he mogram) panel - 04/12/19 05:32 Blood leukocytes automated count (number/volume) 4.9 10*3/uL 4.3-11.0 Blood erythrocytes automated count (number/volume) 3.95 10*6/uL 4.35-5.85 Venous blood hemoglobin measurement (mass/volume) 13.1 g/dL 11.5-16.0 Blood hematocrit (volume fraction) 39 % 35-52 Automated erythrocyte mean corpuscular volume 99 [ foz_us] 80-99 Automated erythrocyte mean corpuscular h emoglobin (mass per erythrocyte) 33 pg 25-34 Automated erythrocyte mean corpuscular h emoglobin concentration measurement (mass/volume) 34 g/dL 32-36 Automated erythrocyte distribution width ratio 12. 6 % 10.0- 14.5 Automated blood platelet count (count/volume) 133 10*3/uL 130-400 Automated blood platelet mean volume measurement 10.2 [foz_us] 7.4-10.4 Comprehensive metabolic panel - 04/12/19 05:32 Serum or plasma sodium measurement (moles/volume) 138 mmol/L 135-145 Serum or plasma potassium measurement (moles/volume) 3.3 mmol/L 3.6-5.0 Serum or plasma chloride measurement (moles/volume) 100 mmol/L 98-107 Carbon dioxide 27 mmol/L 21-32 Serum or plasma anion gap determination (moles/volume) 11 mmol/L 5-14 Serum or plasma urea nitrogen measurement (mass/volume ) 14 mg/dL 7-18 Serum or plasma creatinine measurement (mass/volume) 0.88 mg/dL 0.60-1.30 Serum or plasma urea nitrogen/creatinine mass ratio 16 NRG Serum or plasma creatinine measurement w ith calculation of estimated glomerular filtration rate > NRG Serum or plasma glucose measurement (mass/volume) 74 mg/dL 70-105 Serum or plasma calcium measurement (mass/volume) 8.4 mg/dL 8.5-10.1 Serum or plasma total bilirubin measurement (mass/volu me) 0.5 mg/dL 0.1-1.0 Serum or plasma alkaline phosphatase marguerite surement (enzymatic activity/volume) 38 U/L 40-136 Serum or plasma aspartate aminotransfera se measurement (enzymatic activity/volume) 39 U/L 5-34 Serum or plasma alanine aminotransferase measurement (enzymatic activity/volume) 20 U/L 0-55 Serum or plasma protein measurement (mass/volume) 5.0 g/dL 6.4-8.2 Serum or plasma albumin measurement (mass/volume) 3.1 g/dL 3.2-4.5 CALCIUM CORRECTED 9.1 mg/dL 8.5-10.1 Capillary blood glucose measurement by g lucometer (mass/volume) - 04/12/19 06:11 Capillary blood glucose measurement by glucometer (mas s/volume) 82 mg/dL 70-110 Capillary blood glucose measurement by g lucometer (mass/volume) - 04/12/19 09:31 Capillary blood glucose measurement by glucometer (mas s/volume) 108 mg/dL 70-110 Capillary blood glucose measurement by g lucometer (mass/volume) - 04/12/19 16:23 Capillary blood glucose measurement by glucometer (mas s/volume) 148 mg/dL 70-110 Capillary blood glucose measurement by g lucometer (mass/volume) - 04/12/19 20:57 Capillary blood glucose measurement by glucometer (mas s/volume) 164 mg/dL 70-110 Complete blood count (CBC) with automate d white blood cell (WBC) differential - 04/13/19 04:45 Blood leukocytes automated count (number/volume) 5.3 10*3/uL 4.3-11.0 Blood erythrocytes automated count (number/volume) 3.83 10*6/uL 4.35-5.85 Venous blood hemoglobin measurement (mass/volume) 12.8 g/dL 11.5-16.0 Blood hematocrit (volume fraction) 38 % 35-52 Automated erythrocyte mean corpuscular volume 99 [ foz_us] 80-99 Automated erythrocyte mean corpuscular h emoglobin (mass per erythrocyte) 33 pg 25-34 Automated erythrocyte mean corpuscular h emoglobin concentration measurement (mass/volume) 34 g/dL 32-36 Automated erythrocyte distribution width ratio 12. 6 % 10.0- 14.5 Automated blood platelet count (count/volume) 132 10*3/uL 130-400 Automated blood platelet mean volume measurement 9.6 [foz_us] 7.4-10.4 Automated blood neutrophils/100 leukocytes 50 % 42-75 Automated blood lymphocytes/100 leukocytes 32 % 12-44 Blood monocytes/100 leukocytes 14 % 0-12 Automated blood eosinophils/100 leukocytes 4 % 0-10 Automated blood basophils/100 leukocytes 1 % 0-10 Blood neutrophils automated count (number/volume) 2.6 10*3 1.8-7.8 Blood lymphocytes automated count (number/volume) 1.7 10*3 1.0-4.0 Blood monocytes automated count (number/volume) 0. 7 10*3 0.0-1.0 Automated eosinophil count 0.2 10*3/uL 0 .0-0.3 Automated blood basophil count (count/volume) 0.0 10*3/uL 0.0-0.1 Comprehensive metabolic panel - 04/13/19 04:45 Serum or plasma sodium measurement (moles/volume) 138 mmol/L 135-145 Serum or plasma potassium measurement (moles/volume) 3.6 mmol/L 3.6-5.0 Serum or plasma chloride measurement (moles/volume) 101 mmol/L 98-107 Carbon dioxide 27 mmol/L 21-32 Serum or plasma anion gap determination (moles/volume) 10 mmol/L 5-14 Serum or plasma urea nitrogen measurement (mass/volume ) 13 mg/dL 7-18 Serum or plasma creatinine measurement (mass/volume) 0.85 mg/dL 0.60-1.30 Serum or plasma urea nitrogen/creatinine mass ratio 15 NRG Serum or plasma creatinine measurement w ith calculation of estimated glomerular filtration rate > NRG Serum or plasma glucose measurement (mass/volume) 87 mg/dL 70-105 Serum or plasma calcium measurement (mass/volume) 8.8 mg/dL 8.5-10.1 Serum or plasma total bilirubin measurement (mass/volu me) 0.6 mg/dL 0.1-1.0 Serum or plasma alkaline phosphatase marguerite surement (enzymatic activity/volume) 44 U/L 40-136 Serum or plasma aspartate aminotransfera se measurement (enzymatic activity/volume) 48 U/L 5-34 Serum or plasma alanine aminotransferase measurement (enzymatic activity/volume) 21 U/L 0-55 Serum or plasma protein measurement (mass/volume) 5.1 g/dL 6.4-8.2 Serum or plasma albumin measurement (mass/volume) 3.1 g/dL 3.2-4.5 CALCIUM CORRECTED 9.5 mg/dL 8.5-10.1 IRON TEST - 04/13/19 04:45 Serum or plasma iron measurement (mass/volume) 65 % 35-180 Capillary blood glucose measurement by g lucometer (mass/volume) - 04/13/19 11:26 Capillary blood glucose measurement by glucometer (mas s/volume) 112 mg/dL 70-110 Capillary blood glucose measurement by g lucometer (mass/volume) - 04/13/19 16:59 Capillary blood glucose measurement by glucometer (mas s/volume) 120 mg/dL 70-110 Capillary blood glucose measurement by g lucometer (mass/volume) - 04/13/19 21:14 Capillary blood glucose measurement by glucometer (mas s/volume) 152 mg/dL 70-110 Capillary blood glucose measurement by g lucometer (mass/volume) - 04/14/19 06:15 Capillary blood glucose measurement by glucometer (mas s/volume) 91 mg/dL 70-110 Capillary blood glucose measurement by g lucometer (mass/volume) - 04/14/19 11:17 Capillary blood glucose measurement by glucometer (mas s/volume) 95 mg/dL 70-110 Capillary blood glucose measurement by g lucometer (mass/volume) - 04/14/19 16:43 Capillary blood glucose measurement by glucometer (mas s/volume) 126 mg/dL 70-110 Capillary blood glucose measurement by g lucometer (mass/volume) - 04/14/19 20:19 Capillary blood glucose measurement by glucometer (mas s/volume) 108 mg/dL 70-110 Capillary blood glucose measurement by g lucometer (mass/volume) - 04/15/19 04:46 Capillary blood glucose measurement by glucometer (mas s/volume) 78 mg/dL 70-110 Capillary blood glucose measurement by g lucometer (mass/volume) - 04/15/19 11:06 Capillary blood glucose measurement by glucometer (mas s/volume) 115 mg/dL 70-110 Capillary blood glucose measurement by g lucometer (mass/volume) - 04/15/19 15:03 Capillary blood glucose measurement by glucometer (mas s/volume) 170 mg/dL 70-110 Capillary blood glucose measurement by g lucometer (mass/volume) - 04/15/19 20:23 Capillary blood glucose measurement by glucometer (mas s/volume) 115 mg/dL 70-110 Capillary blood glucose measurement by g lucometer (mass/volume) - 04/16/19 06:00 Capillary blood glucose measurement by glucometer (mas s/volume) 75 mg/dL 70-110 Capillary blood glucose measurement by g lucometer (mass/volume) - 04/16/19 11:44 Capillary blood glucose measurement by glucometer (mas s/volume) 106 mg/dL 70-110 Capillary blood glucose measurement by g lucometer (mass/volume) - 04/16/19 15:30 Capillary blood glucose measurement by glucometer (mas s/volume) 130 mg/dL 70-110 Capillary blood glucose measurement by g lucometer (mass/volume) - 04/16/19 20:45 Capillary blood glucose measurement by glucometer (mas s/volume) 82 mg/dL 70-110 Capillary blood glucose measurement by g lucometer (mass/volume) - 04/17/19 04:57 Capillary blood glucose measurement by glucometer (mas s/volume) 107 mg/dL 70-110 Capillary blood glucose measurement by g lucometer (mass/volume) - 04/17/19 10:40 Capillary blood glucose measurement by glucometer (mas s/volume) 127 mg/dL 70-110 Capillary blood glucose measurement by g lucometer (mass/volume) - 04/17/19 16:02 Capillary blood glucose measurement by glucometer (mas s/volume) 129 mg/dL 70-110 Capillary blood glucose measurement by g lucometer (mass/volume) - 04/17/19 20:34 Capillary blood glucose measurement by glucometer (mas s/volume) 132 mg/dL 70-110 Complete blood count (CBC) with automate d white blood cell (WBC) differential - 04/18/19 05:42 Blood leukocytes automated count (number/volume) 4.6 10*3/uL 4.3-11.0 Blood erythrocytes automated count (number/volume) 4.01 10*6/uL 4.35-5.85 Venous blood hemoglobin measurement (mass/volume) 13.4 g/dL 11.5-16.0 Blood hematocrit (volume fraction) 40 % 35-52 Automated erythrocyte mean corpuscular volume 100 [foz_us] 80-99 Automated erythrocyte mean corpuscular h emoglobin (mass per erythrocyte) 33 pg 25-34 Automated erythrocyte mean corpuscular h emoglobin concentration measurement (mass/volume) 34 g/dL 32-36 Automated erythrocyte distribution width ratio 13. 2 % 10.0- 14.5 Automated blood platelet count (count/volume) 140 10*3/uL 130-400 Automated blood platelet mean volume measurement 9.8 [foz_us] 7.4-10.4 Automated blood neutrophils/100 leukocytes 54 % 42-75 Automated blood lymphocytes/100 leukocytes 31 % 12-44 Blood monocytes/100 leukocytes 13 % 0-12 Automated blood eosinophils/100 leukocytes 2 % 0-10 Automated blood basophils/100 leukocytes 0 % 0-10 Blood neutrophils automated count (number/volume) 2.5 10*3 1.8-7.8 Blood lymphocytes automated count (number/volume) 1.4 10*3 1.0-4.0 Blood monocytes automated count (number/volume) 0. 6 10*3 0.0-1.0 Automated eosinophil count 0.1 10*3/uL 0 .0-0.3 Automated blood basophil count (count/volume) 0.0 10*3/uL 0.0-0.1 Comprehensive metabolic panel - 04/18/19 05:42 Serum or plasma sodium measurement (moles/volume) 140 mmol/L 135-145 Serum or plasma potassium measurement (moles/volume) 3.8 mmol/L 3.6-5.0 Serum or plasma chloride measurement (moles/volume) 106 mmol/L 98-107 Carbon dioxide 24 mmol/L 21-32 Serum or plasma anion gap determination (moles/volume) 10 mmol/L 5-14 Serum or plasma urea nitrogen measurement (mass/volume ) 11 mg/dL 7-18 Serum or plasma creatinine measurement (mass/volume) 0.89 mg/dL 0.60-1.30 Serum or plasma urea nitrogen/creatinine mass ratio 12 NRG Serum or plasma creatinine measurement w ith calculation of estimated glomerular filtration rate > NRG Serum or plasma glucose measurement (mass/volume) 77 mg/dL 70-105 Serum or plasma calcium measurement (mass/volume) 8.7 mg/dL 8.5-10.1 Serum or plasma total bilirubin measurement (mass/volu me) 0.6 mg/dL 0.1-1.0 Serum or plasma alkaline phosphatase marguerite surement (enzymatic activity/volume) 40 U/L 40-136 Serum or plasma aspartate aminotransfera se measurement (enzymatic activity/volume) 29 U/L 5-34 Serum or plasma alanine aminotransferase measurement (enzymatic activity/volume) 21 U/L 0-55 Serum or plasma protein measurement (mass/volume) 5.1 g/dL 6.4-8.2 Serum or plasma albumin measurement (mass/volume) 3.1 g/dL 3.2-4.5 CALCIUM CORRECTED 9.4 mg/dL 8.5-10.1 Capillary blood glucose measurement by g lucometer (mass/volume) - 04/18/19 07:00 Capillary blood glucose measurement by glucometer (mas s/volume) 85 mg/dL 70-110 Capillary blood glucose measurement by g lucometer (mass/volume) - 04/18/19 11:20 Capillary blood glucose measurement by glucometer (mas s/volume) 125 mg/dL 70-110 Capillary blood glucose measurement by g lucometer (mass/volume) - 04/18/19 15:32 Capillary blood glucose measurement by glucometer (mas s/volume) 120 mg/dL 70-110 Capillary blood glucose measurement by g lucometer (mass/volume) - 04/18/19 20:37 Capillary blood glucose measurement by glucometer (mas s/volume) 122 mg/dL 70-110 Capillary blood glucose measurement by g lucometer (mass/volume) - 04/19/19 06:20 Capillary blood glucose measurement by glucometer (mas s/volume) 75 mg/dL 70-110 Capillary blood glucose measurement by g lucometer (mass/volume) - 04/19/19 11:01 Capillary blood glucose measurement by glucometer (mas s/volume) 115 mg/dL 70-110 Capillary blood glucose measurement by g lucometer (mass/volume) - 04/19/19 15:49 Capillary blood glucose measurement by glucometer (mas s/volume) 100 mg/dL 70-110 Influenza virus A and B antigen detectio n - 04/19/19 19:47 CALL POSITIVES (F1 HELP) CALLED TO [facility]TAGRACIA @ 2017 NR FLU RESULT POSITIVE FOR INFLUENZA B ANT IGEN, NEG FOR A ANTIGEN, BY IA [facility] Capillary blood glucose measurement by g lucometer (mass/volume) - 04/19/19 21:06 Capillary blood glucose measurement by glucometer (mas s/volume) 106 mg/dL 70-110 Capillary blood glucose measurement by g lucometer (mass/volume) - 04/20/19 05:36 Capillary blood glucose measurement by glucometer (mas s/volume) 86 mg/dL 70-110 Capillary blood glucose measurement by g lucometer (mass/volume) - 04/20/19 10:48 Capillary blood glucose measurement by glucometer (mas s/volume) 103 mg/dL 70-110 Capillary blood glucose measurement by g lucometer (mass/volume) - 04/20/19 15:54 Capillary blood glucose measurement by glucometer (mas s/volume) 108 mg/dL 70-110 Capillary blood glucose measurement by g lucometer (mass/volume) - 04/20/19 20:37 Capillary blood glucose measurement by glucometer (mas s/volume) 105 mg/dL 70-110 Capillary blood glucose measurement by g lucometer (mass/volume) - 04/21/19 06:07 Capillary blood glucose measurement by glucometer (mas s/volume) 79 mg/dL 70-110 Capillary blood glucose measurement by g lucometer (mass/volume) - 04/21/19 10:56 Capillary blood glucose measurement by glucometer (mas s/volume) 97 mg/dL 70-110 Capillary blood glucose measurement by g lucometer (mass/volume) - 04/21/19 15:58 Capillary blood glucose measurement by glucometer (mas s/volume) 103 mg/dL 70-110 Capillary blood glucose measurement by g lucometer (mass/volume) - 04/21/19 20:38 Capillary blood glucose measurement by glucometer (mas s/volume) 105 mg/dL 70-110 Capillary blood glucose measurement by g lucometer (mass/volume) - 04/22/19 06:18 Capillary blood glucose measurement by glucometer (mas s/volume) 79 mg/dL 70-110 Capillary blood glucose measurement by g lucometer (mass/volume) - 04/22/19 11:00 Capillary blood glucose measurement by glucometer (mas s/volume) 99 mg/dL 70-110 Complete blood count (CBC) with automate d white blood cell (WBC) differential - 05/28/19 06:30 Blood leukocytes automated count (number/volume) 10.2 10*3/uL 4.3-11.0 Blood erythrocytes automated count (number/volume) 4.27 10*6/uL 4.35-5.85 Venous blood hemoglobin measurement (mass/volume) 14.7 g/dL 11.5-16.0 Blood hematocrit (volume fraction) 42 % 35-52 Automated erythrocyte mean corpuscular volume 98 [ foz_us] 80-99 Automated erythrocyte mean corpuscular h emoglobin (mass per erythrocyte) 34 pg 25-34 Automated erythrocyte mean corpuscular h emoglobin concentration measurement (mass/volume) 35 g/dL 32-36 Automated erythrocyte distribution width ratio 12. 4 % 10.0- 14.5 Automated blood platelet count (count/volume) 190 10*3/uL 130-400 Automated blood platelet mean volume measurement 10.5 [foz_us] 7.4-10.4 Automated blood neutrophils/100 leukocytes 65 % 42-75 Automated blood lymphocytes/100 leukocytes 22 % 12-44 Blood monocytes/100 leukocytes 9 % 0-12 Automated blood eosinophils/100 leukocytes 4 % 0-10 Automated blood basophils/100 leukocytes 0 % 0-10 Blood neutrophils automated count (number/volume) 6.6 10*3 1.8-7.8 Blood lymphocytes automated count (number/volume) 2.2 10*3 1.0-4.0 Blood monocytes automated count (number/volume) 0. 9 10*3 0.0-1.0 Automated eosinophil count 0.4 10*3/uL 0 .0-0.3 Automated blood basophil count (count/volume) 0.0 10*3/uL 0.0-0.1 Comprehensive metabolic panel - 05/28/19 06:30 Serum or plasma sodium measurement (moles/volume) 135 mmol/L 135-145 Serum or plasma potassium measurement (moles/volume) 4.2 mmol/L 3.6-5.0 Serum or plasma chloride measurement (moles/volume) 98 mmol/L 98-107 Carbon dioxide 24 mmol/L 21-32 Serum or plasma anion gap determination (moles/volume) 13 mmol/L 5-14 Serum or plasma urea nitrogen measurement (mass/volume ) 16 mg/dL 7-18 Serum or plasma creatinine measurement (mass/volume) 0.92 mg/dL 0.60-1.30 Serum or plasma urea nitrogen/creatinine mass ratio 17 NRG Serum or plasma creatinine measurement w ith calculation of estimated glomerular filtration rate 59 NRG Serum or plasma glucose measurement (mass/volume) 101 mg/dL 70-105 Serum or plasma calcium measurement (mass/volume) 9.1 mg/dL 8.5-10.1 Serum or plasma total bilirubin measurement (mass/volu me) 0.6 mg/dL 0.1-1.0 Serum or plasma alkaline phosphatase marguerite surement (enzymatic activity/volume) 48 U/L 40-136 Serum or plasma aspartate aminotransfera se measurement (enzymatic activity/volume) 30 U/L 5-34 Serum or plasma alanine aminotransferase measurement (enzymatic activity/volume) 22 U/L 0-55 Serum or plasma protein measurement (mass/volume) 6.4 g/dL 6.4-8.2 Serum or plasma albumin measurement (mass/volume) 3.7 g/dL 3.2-4.5 CALCIUM CORRECTED 9.3 mg/dL 8.5-10.1 Magnesium - 05/28/19 06:30 Magnesium 2.0 mg/dL 1.6-2.4 Arterial blood gas measurement - 9 07:20 Blood pCO2 50 mm[Hg] 35-45 Blood pO2 74 mm[Hg] 79-93 Arterial blood bicarbonate measurement (moles/volume) 28 mmol/L 23-27 Arterial blood base excess by calculation 3.2 mmol /L -2.5-2.5 Arterial blood oxygen saturation measurement 93 % 94-100 * Inhaled oxygen flow rate 2L NRG Arterial blood pH measurement with patient temperature correction 7.37 7.37-7.43 Arterial blood carbon dioxide, total measurement (mole s/volume) 29.7 mmol/L 21.0-31.0 Body site RT RADIAL NRG Assessment of wrist artery patency prior to arterial p uncture YES-POS NRG Setting of ventilation mode NO NR G Measurement of body temperature 36.7 NRG Complete urinalysis with reflex to cultu re - 05/28/19 08:10 Urine color determination YELLOW NRG Urine clarity determination SL CLOUDY N RG Urine pH measurement by test strip 5.5 5-9 Specific gravity of urine by test strip >= 1.016-1.022 Urine protein assay by test strip, semi-quantitative NEGATIVE NEGATIVE Urine glucose detection by automated test strip NE GATIVE NEGATIVE Erythrocytes detection in urine sediment by light micr oscopy NEGATIVE NEGATIVE Urine ketones detection by automated test strip NE GATIVE NEGATIVE Urine nitrite detection by test strip NEGATIVE NEGATIVE Urine total bilirubin detection by test strip NEGA TIVE NEGATIVE Urine urobilinogen measurement by automated test strip (mass/volume) 0.2 mg/dL < = 1.0 Urine leukocyte esterase detection by dipstick NEG ATIVE NEGATIVE Automated urine sediment erythrocyte cou nt by microscopy (number/high power field) RARE NRG Automated urine sediment leukocyte count by microscopy (number/high power field) [HPF] NRG Bacteria detection in urine sediment by light microsco py LARGE NRG Squamous epithelial cells detection in u rine sediment by light microscopy NONE NRG Crystals detection in urine sediment by light microsco py NONE NRG Casts detection in urine sediment by light microscopy NONE NRG Mucus detection in urine sediment by light microscopy NEGATIVE NRG Complete urinalysis with reflex to culture YES NRG Bacterial urine culture - 05/28/19 08:10 Bacterial urine culture [id number] NRG COLONY COUNT >100,000/ML NRG FTX;REPORTABLE SUSCEPTIBILITY REPORTED 05/30 10:30 NRG Dirithromycin susceptibility test by dis k diffusion - 05/28/19 08:10 Vancomycin susceptibility test by minimum inhibitory c oncentration 1 NRG Levofloxacin susceptibility test by minimum inhibitory concentration > NRG Ampicillin susceptibility test by minimum inhibitory c oncentration 2 NRG Nitrofurantoin susceptibility test by mi nimum inhibitory concentration <= NRG Linezolid susceptibility test by minimum inhibitory co ncentration <= NRG Daptomycin susc HAYLEY 2 NRG Capillary blood glucose measurement by g lucometer (mass/volume) - 05/28/19 10:29 Capillary blood glucose measurement by glucometer (mas s/volume) 138 mg/dL 70-110 Complete blood count (CBC) with automate d white blood cell (WBC) differential - 07/03/19 20:03 Blood leukocytes automated count (number/volume) 8.9 10*3/uL 4.3-11.0 Blood erythrocytes automated count (number/volume) 4.39 10*6/uL 4.35-5.85 Venous blood hemoglobin measurement (mass/volume) 15.0 g/dL 11.5-16.0 Blood hematocrit (volume fraction) 43 % 35-52 Automated erythrocyte mean corpuscular volume 97 [ foz_us] 80-99 Automated erythrocyte mean corpuscular h emoglobin (mass per erythrocyte) 34 pg 25-34 Automated erythrocyte mean corpuscular h emoglobin concentration measurement (mass/volume) 35 g/dL 32-36 Automated erythrocyte distribution width ratio 12. 5 % 10.0- 14.5 Automated blood platelet count (count/volume) 185 10*3/uL 130-400 Automated blood platelet mean volume measurement 10.7 [foz_us] 7.4-10.4 Automated blood neutrophils/100 leukocytes 76 % 42-75 Automated blood lymphocytes/100 leukocytes 14 % 12-44 Blood monocytes/100 leukocytes 10 % 0-12 Automated blood eosinophils/100 leukocytes 0 % 0-10 Automated blood basophils/100 leukocytes 0 % 0-10 Blood neutrophils automated count (number/volume) 6.8 10*3 1.8-7.8 Blood lymphocytes automated count (number/volume) 1.2 10*3 1.0-4.0 Blood monocytes automated count (number/volume) 0. 9 10*3 0.0-1.0 Automated eosinophil count 0.0 10*3/uL 0 .0-0.3 Automated blood basophil count (count/volume) 0.0 10*3/uL 0.0-0.1 Comprehensive metabolic panel - 07/03/19 20:03 Serum or plasma sodium measurement (moles/volume) 137 mmol/L 135-145 Serum or plasma potassium measurement (moles/volume) 3.9 mmol/L 3.6-5.0 Serum or plasma chloride measurement (moles/volume) 96 mmol/L 98-107 Carbon dioxide 25 mmol/L 21-32 Serum or plasma anion gap determination (moles/volume) 16 mmol/L 5-14 Serum or plasma urea nitrogen measurement (mass/volume ) 21 mg/dL 7-18 Serum or plasma creatinine measurement (mass/volume) 1.08 mg/dL 0.60-1.30 Serum or plasma urea nitrogen/creatinine mass ratio 19 NRG Serum or plasma creatinine measurement w ith calculation of estimated glomerular filtration rate 49 NRG Serum or plasma glucose measurement (mass/volume) 186 mg/dL 70-105 Serum or plasma calcium measurement (mass/volume) 8.9 mg/dL 8.5-10.1 Serum or plasma total bilirubin measurement (mass/volu me) 0.5 mg/dL 0.1-1.0 Serum or plasma alkaline phosphatase marguerite surement (enzymatic activity/volume) 51 U/L 40-136 Serum or plasma aspartate aminotransfera se measurement (enzymatic activity/volume) 33 U/L 5-34 Serum or plasma alanine aminotransferase measurement (enzymatic activity/volume) 22 U/L 0-55 Serum or plasma protein measurement (mass/volume) 6.4 g/dL 6.4-8.2 Serum or plasma albumin measurement (mass/volume) 3.6 g/dL 3.2-4.5 CALCIUM CORRECTED 9.2 mg/dL 8.5-10.1 PT panel in platelet poor plasma by coag ulation assay - 07/03/19 20:03 Prothrombin time (PT) in platelet poor plasma by coagu lation assay 13.1 s 12.2-14.7 INR in platelet poor plasma or blood by coagulation as say 1.0 0.8-1.4 Activated partial thromboplastin time (a PTT) in platelet poor plasma bycoagulation assay - 07/03/19 20:03 Activated partial thromboplastin time (a PTT) in platelet poor plasma bycoagulation assay 26 s 24-35 Influenza virus A and B antigen detectio n - 07/03/19 20:08 FLU RESULT NEGATIVE FOR INFLUENZA A AND B ANTIGENS BY IA NRG Blood lactic acid measurement (moles/vol ume) - 07/03/19 20:19 Blood lactic acid measurement (moles/volume) 2.37 mmol/L 0.50-2.00 Bacterial blood culture - 07/03/19 20:19 FREE TEXT EXTERNAL SEE COMMENT NRG QUANTITY OF GROWTH Isolated NRG Bacterial blood culture [id number] NRG Bacterial blood culture - 07/03/19 20:36 Bacterial blood culture NG NRG Capillary blood glucose measurement by g lucometer (mass/volume) - 07/03/19 22:06 Capillary blood glucose measurement by glucometer (mas s/volume) 215 mg/dL 70-110 Serum or plasma lactate measurement (mol es/volume) - 07/03/19 22:34 Serum or plasma lactate measurement (moles/volume) 2.40 mmol/L 0.50-2.00 Complete blood count (CBC) with automate d white blood cell (WBC) differential - 07/04/19 04:05 Blood leukocytes automated count (number/volume) 5.8 10*3/uL 4.3-11.0 Blood erythrocytes automated count (number/volume) 4.02 10*6/uL 4.35-5.85 Venous blood hemoglobin measurement (mass/volume) 13.8 g/dL 11.5-16.0 Blood hematocrit (volume fraction) 39 % 35-52 Automated erythrocyte mean corpuscular volume 97 [ foz_us] 80-99 Automated erythrocyte mean corpuscular h emoglobin (mass per erythrocyte) 34 pg 25-34 Automated erythrocyte mean corpuscular h emoglobin concentration measurement (mass/volume) 35 g/dL 32-36 Automated erythrocyte distribution width ratio 11. 7 % 10.0- 14.5 Automated blood platelet count (count/volume) 137 10*3/uL 130-400 Automated blood platelet mean volume measurement 9.8 [foz_us] 7.4-10.4 Automated blood neutrophils/100 leukocytes 91 % 42-75 Automated blood lymphocytes/100 leukocytes 8 % 12-44 Blood monocytes/100 leukocytes 1 % 0-12 Automated blood eosinophils/100 leukocytes 0 % 0-10 Automated blood basophils/100 leukocytes 0 % 0-10 Blood neutrophils automated count (number/volume) 5.3 10*3 1.8-7.8 Blood lymphocytes automated count (number/volume) 0.5 10*3 1.0-4.0 Blood monocytes automated count (number/volume) 0. 1 10*3 0.0-1.0 Automated eosinophil count 0.0 10*3/uL 0 .0-0.3 Automated blood basophil count (count/volume) 0.0 10*3/uL 0.0-0.1 Comprehensive metabolic panel - 07/04/19 04:05 Serum or plasma sodium measurement (moles/volume) 135 mmol/L 135-145 Serum or plasma potassium measurement (moles/volume) 3.7 mmol/L 3.6-5.0 Serum or plasma chloride measurement (moles/volume) 97 mmol/L 98-107 Carbon dioxide 24 mmol/L 21-32 Serum or plasma anion gap determination (moles/volume) 14 mmol/L 5-14 Serum or plasma urea nitrogen measurement (mass/volume ) 23 mg/dL 7-18 Serum or plasma creatinine measurement (mass/volume) 1.03 mg/dL 0.60-1.30 Serum or plasma urea nitrogen/creatinine mass ratio 22 NRG Serum or plasma creatinine measurement w ith calculation of estimated glomerular filtration rate 52 NRG Serum or plasma glucose measurement (mass/volume) 294 mg/dL 70-105 Serum or plasma calcium measurement (mass/volume) 8.7 mg/dL 8.5-10.1 Serum or plasma total bilirubin measurement (mass/volu me) 0.5 mg/dL 0.1-1.0 Serum or plasma alkaline phosphatase marguerite surement (enzymatic activity/volume) 47 U/L 40-136 Serum or plasma aspartate aminotransfera se measurement (enzymatic activity/volume) 19 U/L 5-34 Serum or plasma alanine aminotransferase measurement (enzymatic activity/volume) 20 U/L 0-55 Serum or plasma protein measurement (mass/volume) 5.4 g/dL 6.4-8.2 Serum or plasma albumin measurement (mass/volume) 3.3 g/dL 3.2-4.5 CALCIUM CORRECTED 9.3 mg/dL 8.5-10.1 Manual absolute plasma cell count - 06/16 04:05 Blood monocytes/100 leukocytes 1 % NRG Manual blood segmented neutrophils/100 leukocytes 94 % NRG Manual blood lymphocytes/100 leukocytes 5 % NRG Capillary blood glucose measurement by g lucometer (mass/volume) - 07/04/19 05:30 Capillary blood glucose measurement by glucometer (mas s/volume) 246 mg/dL 70-110 Blood lactic acid measurement (moles/vol ume) - 07/04/19 09:00 Blood lactic acid measurement (moles/volume) 5.66 mmol/L 0.50-2.00 Capillary blood glucose measurement by g lucometer (mass/volume) - 07/04/19 10:11 Capillary blood glucose measurement by glucometer (mas s/volume) 293 mg/dL 70-110 Serum or plasma lactate measurement (mol es/volume) - 07/04/19 11:35 Serum or plasma lactate measurement (moles/volume) 2.85 mmol/L 0.50-2.00 Capillary blood glucose measurement by g lucometer (mass/volume) - 07/04/19 16:05 Capillary blood glucose measurement by glucometer (mas s/volume) 327 mg/dL 70-110 Blood lactic acid measurement (moles/vol ume) - 07/04/19 17:03 Blood lactic acid measurement (moles/volume) 4.47 mmol/L 0.50-2.00 Serum or plasma lactate measurement (mol es/volume) - 07/04/19 19:01 Serum or plasma lactate measurement (moles/volume) 3.07 mmol/L 0.50-2.00 Capillary blood glucose measurement by g lucometer (mass/volume) - 07/04/19 19:41 Capillary blood glucose measurement by glucometer (mas s/volume) 305 mg/dL 70-110 Complete urinalysis with reflex to cultu re - 07/04/19 20:44 Urine color determination YELLOW NRG Urine clarity determination CLEAR NR G Urine pH measurement by test strip 6.5 5-9 Specific gravity of urine by test strip 1.010 1.016-1.022 Urine protein assay by test strip, semi-quantitative NEGATIVE NEGATIVE Urine glucose detection by automated test strip 3+ NEGATIVE Erythrocytes detection in urine sediment by light micr oscopy NEGATIVE NEGATIVE Urine ketones detection by automated test strip NE GATIVE NEGATIVE Urine nitrite detection by test strip NEGATIVE NEGATIVE Urine total bilirubin detection by test strip NEGA TIVE NEGATIVE Urine urobilinogen measurement by automated test strip (mass/volume) 0.2 mg/dL < = 1.0 Urine leukocyte esterase detection by dipstick NEG ATIVE NEGATIVE Automated urine sediment erythrocyte cou nt by microscopy (number/high power field) NONE NRG Automated urine sediment leukocyte count by microscopy (number/high power field) [HPF] NRG Bacteria detection in urine sediment by light microsco py TRACE NRG Squamous epithelial cells detection in u rine sediment by light microscopy 0-2 NRG Crystals detection in urine sediment by light microsco py NONE NRG Casts detection in urine sediment by light microscopy NONE NRG Mucus detection in urine sediment by light microscopy NEGATIVE NRG Complete urinalysis with reflex to culture NO NRG Capillary blood glucose measurement by g lucometer (mass/volume) - 07/04/19 21:04 Capillary blood glucose measurement by glucometer (mas s/volume) 283 mg/dL 70-110 Automated blood complete blood count (he mogram) panel - 07/05/19 05:00 Blood leukocytes automated count (number/volume) 8.5 10*3/uL 4.3-11.0 Blood erythrocytes automated count (number/volume) 3.74 10*6/uL 4.35-5.85 Venous blood hemoglobin measurement (mass/volume) 12.6 g/dL 11.5-16.0 Blood hematocrit (volume fraction) 36 % 35-52 Automated erythrocyte mean corpuscular volume 97 [ foz_us] 80-99 Automated erythrocyte mean corpuscular h emoglobin (mass per erythrocyte) 34 pg 25-34 Automated erythrocyte mean corpuscular h emoglobin concentration measurement (mass/volume) 35 g/dL 32-36 Automated erythrocyte distribution width ratio 12. 1 % 10.0- 14.5 Automated blood platelet count (count/volume) 151 10*3/uL 130-400 Automated blood platelet mean volume measurement 9.8 [foz_us] 7.4-10.4 Comprehensive metabolic panel - 07/05/19 05:00 Serum or plasma sodium measurement (moles/volume) 134 mmol/L 135-145 Serum or plasma potassium measurement (moles/volume) 3.3 mmol/L 3.6-5.0 Serum or plasma chloride measurement (moles/volume) 100 mmol/L 98-107 Carbon dioxide 22 mmol/L 21-32 Serum or plasma anion gap determination (moles/volume) 12 mmol/L 5-14 Serum or plasma urea nitrogen measurement (mass/volume ) 21 mg/dL 7-18 Serum or plasma creatinine measurement (mass/volume) 0.96 mg/dL 0.60-1.30 Serum or plasma urea nitrogen/creatinine mass ratio 22 NRG Serum or plasma creatinine measurement w ith calculation of estimated glomerular filtration rate 56 NRG Serum or plasma glucose measurement (mass/volume) 320 mg/dL 70-105 Serum or plasma calcium measurement (mass/volume) 8.5 mg/dL 8.5-10.1 Serum or plasma total bilirubin measurement (mass/volu me) 0.5 mg/dL 0.1-1.0 Serum or plasma alkaline phosphatase marguerite surement (enzymatic activity/volume) 44 U/L 40-136 Serum or plasma aspartate aminotransfera se measurement (enzymatic activity/volume) 12 U/L 5-34 Serum or plasma alanine aminotransferase measurement (enzymatic activity/volume) 14 U/L 0-55 Serum or plasma protein measurement (mass/volume) 5.1 g/dL 6.4-8.2 Serum or plasma albumin measurement (mass/volume) 3.1 g/dL 3.2-4.5 CALCIUM CORRECTED 9.2 mg/dL 8.5-10.1 Blood lactic acid measurement (moles/vol ume) - 07/05/19 05:00 Blood lactic acid measurement (moles/volume) 2.45 mmol/L 0.50-2.00 Complete blood count (CBC) with automate d white blood cell (WBC) differential - 07/05/19 05:00 Blood leukocytes automated count (number/volume) 8.5 10*3/uL 4.3-11.0 Blood erythrocytes automated count (number/volume) 3.74 10*6/uL 4.35-5.85 Venous blood hemoglobin measurement (mass/volume) 12.6 g/dL 11.5-16.0 Blood hematocrit (volume fraction) 36 % 35-52 Automated erythrocyte mean corpuscular volume 97 [ foz_us] 80-99 Automated erythrocyte mean corpuscular h emoglobin (mass per erythrocyte) 34 pg 25-34 Automated erythrocyte mean corpuscular h emoglobin concentration measurement (mass/volume) 35 g/dL 32-36 Automated erythrocyte distribution width ratio 12. 1 % 10.0- 14.5 Automated blood platelet count (count/volume) 151 10*3/uL 130-400 Automated blood platelet mean volume measurement 9.8 [foz_us] 7.4-10.4 Automated blood neutrophils/100 leukocytes 90 % 42-75 Automated blood lymphocytes/100 leukocytes 6 % 12-44 Blood monocytes/100 leukocytes 4 % 0-12 Automated blood eosinophils/100 leukocytes 1 % 0-10 Automated blood basophils/100 leukocytes 0 % 0-10 Blood neutrophils automated count (number/volume) 7.6 10*3 1.8-7.8 Blood lymphocytes automated count (number/volume) 0.5 10*3 1.0-4.0 Blood monocytes automated count (number/volume) 0. 4 10*3 0.0-1.0 Automated eosinophil count 0.0 10*3/uL 0 .0-0.3 Automated blood basophil count (count/volume) 0.0 10*3/uL 0.0-0.1 Whole blood basic metabolic panel - 06/16 07/04 05:00 Serum or plasma sodium measurement (moles/volume) 134 mmol/L 135-145 Serum or plasma potassium measurement (moles/volume) 3.3 mmol/L 3.6-5.0 Serum or plasma chloride measurement (moles/volume) 100 mmol/L 98-107 Carbon dioxide 22 mmol/L 21-32 Serum or plasma anion gap determination (moles/volume) 12 mmol/L 5-14 Serum or plasma urea nitrogen measurement (mass/volume ) 21 mg/dL 7-18 Serum or plasma creatinine measurement (mass/volume) 0.96 mg/dL 0.60-1.30 Serum or plasma urea nitrogen/creatinine mass ratio 22 NRG Serum or plasma creatinine measurement w ith calculation of estimated glomerular filtration rate 56 NRG Serum or plasma glucose measurement (mass/volume) 320 mg/dL 70-105 Serum or plasma calcium measurement (mass/volume) 8.5 mg/dL 8.5-10.1 Serum or plasma phosphate measurement (m ass/volume) - 07/05/19 05:00 Serum or plasma phosphate measurement (mass/volume) 2.7 mg/dL 2.3-4.7 Magnesium - 07/05/19 05:00 Magnesium 1.9 mg/dL 1.6-2.4 Serum or plasma lithium measurement (mol es/volume) - 07/05/19 05:00 BNP PT 175.3 pg/mL <100.0 Manual absolute plasma cell count - 06/16 07/04 05:00 Blood monocytes/100 leukocytes 9 % NRG Manual blood segmented neutrophils/100 leukocytes 87 % NRG Blood band neutrophils/100 leukocytes 0 % NRG Manual blood lymphocytes/100 leukocytes 4 % NRG Manual eosinophils/100 leukocytes in nose 0 % NRG Manual blood basophils/100 leukocytes 0 % NRG Blood erythrocyte morphology finding identification NORMAL NRG Serum or plasma lactate measurement (mol es/volume) - 07/05/19 06:53 Serum or plasma lactate measurement (moles/volume) 1.97 mmol/L 0.50-2.00 Capillary blood glucose measurement by g lucometer (mass/volume) - 07/05/19 10:03 Capillary blood glucose measurement by glucometer (mas s/volume) 239 mg/dL 70-110 Capillary blood glucose measurement by g lucometer (mass/volume) - 07/05/19 15:10 Capillary blood glucose measurement by glucometer (mas s/volume) 292 mg/dL 70-110 Capillary blood glucose measurement by g lucometer (mass/volume) - 07/05/19 22:08 Capillary blood glucose measurement by glucometer (mas s/volume) 299 mg/dL 70-110 Complete blood count (CBC) with automate d white blood cell (WBC) differential - 07/06/19 05:35 Blood leukocytes automated count (number/volume) 7.1 10*3/uL 4.3-11.0 Blood erythrocytes automated count (number/volume) 3.75 10*6/uL 4.35-5.85 Venous blood hemoglobin measurement (mass/volume) 12.9 g/dL 11.5-16.0 Blood hematocrit (volume fraction) 37 % 35-52 Automated erythrocyte mean corpuscular volume 98 [ foz_us] 80-99 Automated erythrocyte mean corpuscular h emoglobin (mass per erythrocyte) 34 pg 25-34 Automated erythrocyte mean corpuscular h emoglobin concentration measurement (mass/volume) 35 g/dL 32-36 Automated erythrocyte distribution width ratio 12. 2 % 10.0- 14.5 Automated blood platelet count (count/volume) 158 10*3/uL 130-400 Automated blood platelet mean volume measurement 9.4 [foz_us] 7.4-10.4 Automated blood neutrophils/100 leukocytes 83 % 42-75 Automated blood lymphocytes/100 leukocytes 7 % 12-44 Blood monocytes/100 leukocytes 10 % 0-12 Automated blood eosinophils/100 leukocytes 0 % 0-10 Automated blood basophils/100 leukocytes 0 % 0-10 Blood neutrophils automated count (number/volume) 5.9 10*3 1.8-7.8 Blood lymphocytes automated count (number/volume) 0.5 10*3 1.0-4.0 Blood monocytes automated count (number/volume) 0. 7 10*3 0.0-1.0 Automated eosinophil count 0.0 10*3/uL 0 .0-0.3 Automated blood basophil count (count/volume) 0.0 10*3/uL 0.0-0.1 Comprehensive metabolic panel - 07/06/19 05:35 Serum or plasma sodium measurement (moles/volume) 135 mmol/L 135-145 Serum or plasma potassium measurement (moles/volume) 3.8 mmol/L 3.6-5.0 Serum or plasma chloride measurement (moles/volume) 101 mmol/L 98-107 Carbon dioxide 23 mmol/L 21-32 Serum or plasma anion gap determination (moles/volume) 11 mmol/L 5-14 Serum or plasma urea nitrogen measurement (mass/volume ) 28 mg/dL 7-18 Serum or plasma creatinine measurement (mass/volume) 0.95 mg/dL 0.60-1.30 Serum or plasma urea nitrogen/creatinine mass ratio 29 NRG Serum or plasma creatinine measurement w ith calculation of estimated glomerular filtration rate 57 NRG Serum or plasma glucose measurement (mass/volume) 269 mg/dL 70-105 Serum or plasma calcium measurement (mass/volume) 8.8 mg/dL 8.5-10.1 Serum or plasma total bilirubin measurement (mass/volu me) 0.7 mg/dL 0.1-1.0 Serum or plasma alkaline phosphatase marguerite surement (enzymatic activity/volume) 43 U/L 40-136 Serum or plasma aspartate aminotransfera se measurement (enzymatic activity/volume) 15 U/L 5-34 Serum or plasma alanine aminotransferase measurement (enzymatic activity/volume) 16 U/L 0-55 Serum or plasma protein measurement (mass/volume) 5.0 g/dL 6.4-8.2 Serum or plasma albumin measurement (mass/volume) 3.0 g/dL 3.2-4.5 CALCIUM CORRECTED 9.6 mg/dL 8.5-10.1 Capillary blood glucose measurement by g lucometer (mass/volume) - 07/06/19 10:33 Capillary blood glucose measurement by glucometer (mas s/volume) 145 mg/dL 70-110 Capillary blood glucose measurement by g lucometer (mass/volume) - 07/06/19 14:39 Capillary blood glucose measurement by glucometer (mas s/volume) 172 mg/dL 70-110 Capillary blood glucose measurement by g lucometer (mass/volume) - 07/06/19 20:45 Capillary blood glucose measurement by glucometer (mas s/volume) 227 mg/dL 70-110 Capillary blood glucose measurement by g lucometer (mass/volume) - 07/07/19 06:13 Capillary blood glucose measurement by glucometer (mas s/volume) 98 mg/dL 70-110 Capillary blood glucose measurement by g lucometer (mass/volume) - 07/07/19 09:23 Capillary blood glucose measurement by glucometer (mas s/volume) 137 mg/dL 70-110 Capillary blood glucose measurement by g lucometer (mass/volume) - 07/07/19 14:42 Capillary blood glucose measurement by glucometer (mas s/volume) 225 mg/dL 70-110 Capillary blood glucose measurement by g lucometer (mass/volume) - 07/07/19 20:35 Capillary blood glucose measurement by glucometer (mas s/volume) 152 mg/dL 70-110 Capillary blood glucose measurement by g lucometer (mass/volume) - 07/08/19 05:59 Capillary blood glucose measurement by glucometer (mas s/volume) 86 mg/dL 70-110 Capillary blood glucose measurement by g lucometer (mass/volume) - 07/08/19 09:19 Capillary blood glucose measurement by glucometer (mas s/volume) 115 mg/dL 70-110 Automated blood complete blood count (he mogram) panel - 07/08/19 10:44 Blood leukocytes automated count (number/volume) 11.3 10*3/uL 4.3-11.0 Blood erythrocytes automated count (number/volume) 4.23 10*6/uL 4.35-5.85 Venous blood hemoglobin measurement (mass/volume) 14.4 g/dL 11.5-16.0 Blood hematocrit (volume fraction) 42 % 35-52 Automated erythrocyte mean corpuscular volume 99 [ foz_us] 80-99 Automated erythrocyte mean corpuscular h emoglobin (mass per erythrocyte) 34 pg 25-34 Automated erythrocyte mean corpuscular h emoglobin concentration measurement (mass/volume) 35 g/dL 32-36 Automated erythrocyte distribution width ratio 12. 4 % 10.0- 14.5 Automated blood platelet count (count/volume) 163 10*3/uL 130-400 Automated blood platelet mean volume measurement 9.5 [foz_us] 7.4-10.4 Comprehensive metabolic panel - 07/08/19 10:44 Serum or plasma sodium measurement (moles/volume) 135 mmol/L 135-145 Serum or plasma potassium measurement (moles/volume) 4.8 mmol/L 3.6-5.0 Serum or plasma chloride measurement (moles/volume) 101 mmol/L 98-107 Carbon dioxide 21 mmol/L 21-32 Serum or plasma anion gap determination (moles/volume) 13 mmol/L 5-14 Serum or plasma urea nitrogen measurement (mass/volume ) 21 mg/dL 7-18 Serum or plasma creatinine measurement (mass/volume) 0.84 mg/dL 0.60-1.30 Serum or plasma urea nitrogen/creatinine mass ratio 25 NRG Serum or plasma creatinine measurement w ith calculation of estimated glomerular filtration rate > NRG Serum or plasma glucose measurement (mass/volume) 101 mg/dL 70-105 Serum or plasma calcium measurement (mass/volume) 8.7 mg/dL 8.5-10.1 Serum or plasma total bilirubin measurement (mass/volu me) 0.9 mg/dL 0.1-1.0 Serum or plasma alkaline phosphatase marguerite surement (enzymatic activity/volume) 50 U/L 40-136 Serum or plasma aspartate aminotransfera se measurement (enzymatic activity/volume) 30 U/L 5-34 Serum or plasma alanine aminotransferase measurement (enzymatic activity/volume) 27 U/L 0-55 Serum or plasma protein measurement (mass/volume) 5.6 g/dL 6.4-8.2 Serum or plasma albumin measurement (mass/volume) 3.4 g/dL 3.2-4.5 CALCIUM CORRECTED 9.2 mg/dL 8.5-10.1 Magnesium - 07/08/19 10:44 Magnesium 2.0 mg/dL 1.6-2.4 Capillary blood glucose measurement by g lucometer (mass/volume) - 07/08/19 12:57 Capillary blood glucose measurement by glucometer (mas s/volume) 145 mg/dL 70-110 Capillary blood glucose measurement by g lucometer (mass/volume) - 07/08/19 20:36 Capillary blood glucose measurement by glucometer (mas s/volume) 153 mg/dL 70-110 Capillary blood glucose measurement by g lucometer (mass/volume) - 07/09/19 06:08 Capillary blood glucose measurement by glucometer (mas s/volume) 72 mg/dL 70-110 Capillary blood glucose measurement by g lucometer (mass/volume) - 07/09/19 09:47 Capillary blood glucose measurement by glucometer (mas s/volume) 145 mg/dL 70-110 Capillary blood glucose measurement by g lucometer (mass/volume) - 07/09/19 14:41 Capillary blood glucose measurement by glucometer (mas s/volume) 219 mg/dL 70-110 Capillary blood glucose measurement by g lucometer (mass/volume) - 07/09/19 20:01 Capillary blood glucose measurement by glucometer (mas s/volume) 194 mg/dL 70-110 Capillary blood glucose measurement by g lucometer (mass/volume) - 07/10/19 05:23 Capillary blood glucose measurement by glucometer (mas s/volume) 78 mg/dL 70-110 Capillary blood glucose measurement by g lucometer (mass/volume) - 07/10/19 09:44 Capillary blood glucose measurement by glucometer (mas s/volume) 253 mg/dL 70-110 Capillary blood glucose measurement by g lucometer (mass/volume) - 07/10/19 14:17 Capillary blood glucose measurement by glucometer (mas s/volume) 182 mg/dL 70-110 Capillary blood glucose measurement by g lucometer (mass/volume) - 07/10/19 20:08 Capillary blood glucose measurement by glucometer (mas s/volume) 137 mg/dL 70-110 Complete blood count (CBC) with automate d white blood cell (WBC) differential - 07/11/19 05:40 Blood leukocytes automated count (number/volume) 7.5 10*3/uL 4.3-11.0 Blood erythrocytes automated count (number/volume) 4.14 10*6/uL 4.35-5.85 Venous blood hemoglobin measurement (mass/volume) 13.9 g/dL 11.5-16.0 Blood hematocrit (volume fraction) 41 % 35-52 Automated erythrocyte mean corpuscular volume 99 [ foz_us] 80-99 Automated erythrocyte mean corpuscular h emoglobin (mass per erythrocyte) 34 pg 25-34 Automated erythrocyte mean corpuscular h emoglobin concentration measurement (mass/volume) 34 g/dL 32-36 Automated erythrocyte distribution width ratio 12. 5 % 10.0- 14.5 Automated blood platelet count (count/volume) 129 10*3/uL 130-400 Automated blood platelet mean volume measurement 10.1 [foz_us] 7.4-10.4 Automated blood neutrophils/100 leukocytes 77 % 42-75 Automated blood lymphocytes/100 leukocytes 10 % 12-44 Blood monocytes/100 leukocytes 13 % 0-12 Automated blood eosinophils/100 leukocytes 0 % 0-10 Automated blood basophils/100 leukocytes 0 % 0-10 Blood neutrophils automated count (number/volume) 5.7 10*3 1.8-7.8 Blood lymphocytes automated count (number/volume) 0.7 10*3 1.0-4.0 Blood monocytes automated count (number/volume) 1. 0 10*3 0.0-1.0 Automated eosinophil count 0.0 10*3/uL 0 .0-0.3 Automated blood basophil count (count/volume) 0.0 10*3/uL 0.0-0.1 Comprehensive metabolic panel - 07/11/19 05:40 Serum or plasma sodium measurement (moles/volume) 134 mmol/L 135-145 Serum or plasma potassium measurement (moles/volume) 3.6 mmol/L 3.6-5.0 Serum or plasma chloride measurement (moles/volume) 98 mmol/L 98-107 Carbon dioxide 28 mmol/L 21-32 Serum or plasma anion gap determination (moles/volume) 8 mmol/L 5-14 Serum or plasma urea nitrogen measurement (mass/volume ) 15 mg/dL 7-18 Serum or plasma creatinine measurement (mass/volume) 0.76 mg/dL 0.60-1.30 Serum or plasma urea nitrogen/creatinine mass ratio 20 NRG Serum or plasma creatinine measurement w ith calculation of estimated glomerular filtration rate > NRG Serum or plasma glucose measurement (mass/volume) 84 mg/dL 70-105 Serum or plasma calcium measurement (mass/volume) 8.9 mg/dL 8.5-10.1 Serum or plasma total bilirubin measurement (mass/volu me) 0.6 mg/dL 0.1-1.0 Serum or plasma alkaline phosphatase marguerite surement (enzymatic activity/volume) 53 U/L 40-136 Serum or plasma aspartate aminotransfera se measurement (enzymatic activity/volume) 20 U/L 5-34 Serum or plasma alanine aminotransferase measurement (enzymatic activity/volume) 20 U/L 0-55 Serum or plasma protein measurement (mass/volume) 5.4 g/dL 6.4-8.2 Serum or plasma albumin measurement (mass/volume) 3.3 g/dL 3.2-4.5 CALCIUM CORRECTED 9.5 mg/dL 8.5-10.1 Capillary blood glucose measurement by g lucometer (mass/volume) - 07/11/19 06:38 Capillary blood glucose measurement by glucometer (mas s/volume) 76 mg/dL 70-110 Capillary blood glucose measurement by g lucometer (mass/volume) - 07/11/19 09:33 Capillary blood glucose measurement by glucometer (mas s/volume) 106 mg/dL 70-110 Capillary blood glucose measurement by g lucometer (mass/volume) - 07/11/19 14:29 Capillary blood glucose measurement by glucometer (mas s/volume) 164 mg/dL 70-110 Capillary blood glucose measurement by g lucometer (mass/volume) - 07/11/19 19:22 Capillary blood glucose measurement by glucometer (mas s/volume) 183 mg/dL 70-110 Capillary blood glucose measurement by g lucometer (mass/volume) - 07/12/19 06:07 Capillary blood glucose measurement by glucometer (mas s/volume) 72 mg/dL 70-110 Capillary blood glucose measurement by g lucometer (mass/volume) - 07/12/19 09:40 Capillary blood glucose measurement by glucometer (mas s/volume) 92 mg/dL 70-110 Capillary blood glucose measurement by g lucometer (mass/volume) - 07/12/19 14:10 Capillary blood glucose measurement by glucometer (mas s/volume) 168 mg/dL 70-110 Capillary blood glucose measurement by g lucometer (mass/volume) - 07/12/19 19:51 Capillary blood glucose measurement by glucometer (mas s/volume) 155 mg/dL 70-110 Capillary blood glucose measurement by g lucometer (mass/volume) - 07/12/19 21:03 Capillary blood glucose measurement by glucometer (mas s/volume) 152 mg/dL 70-110 Capillary blood glucose measurement by g lucometer (mass/volume) - 07/13/19 06:08 Capillary blood glucose measurement by glucometer (mas s/volume) 73 mg/dL 70-110 Capillary blood glucose measurement by g lucometer (mass/volume) - 07/13/19 09:55 Capillary blood glucose measurement by glucometer (mas s/volume) 91 mg/dL 70-110 Capillary blood glucose measurement by g lucometer (mass/volume) - 07/13/19 14:51 Capillary blood glucose measurement by glucometer (mas s/volume) 179 mg/dL 70-110 Capillary blood glucose measurement by g lucometer (mass/volume) - 07/13/19 21:02 Capillary blood glucose measurement by glucometer (mas s/volume) 148 mg/dL 70-110 Capillary blood glucose measurement by g lucometer (mass/volume) - 07/14/19 05:13 Capillary blood glucose measurement by glucometer (mas s/volume) 78 mg/dL 70-110 Automated blood complete blood count (he mogram) panel - 07/14/19 05:17 Blood leukocytes automated count (number/volume) 5.5 10*3/uL 4.3-11.0 Blood erythrocytes automated count (number/volume) 3.75 10*6/uL 4.35-5.85 Venous blood hemoglobin measurement (mass/volume) 12.7 g/dL 11.5-16.0 Blood hematocrit (volume fraction) 38 % 35-52 Automated erythrocyte mean corpuscular volume 101 [foz_us] 80-99 Automated erythrocyte mean corpuscular h emoglobin (mass per erythrocyte) 34 pg 25-34 Automated erythrocyte mean corpuscular h emoglobin concentration measurement (mass/volume) 34 g/dL 32-36 Automated erythrocyte distribution width ratio 12. 3 % 10.0- 14.5 Automated blood platelet count (count/volume) 123 10*3/uL 130-400 Automated blood platelet mean volume measurement 10.3 [foz_us] 7.4-10.4 Serum or plasma creatinine measurement ( mass/volume) - 07/14/19 05:17 Serum or plasma creatinine measurement (mass/volume) 0.68 mg/dL 0.60-1.30 Capillary blood glucose measurement by g lucometer (mass/volume) - 07/14/19 09:40 Capillary blood glucose measurement by glucometer (mas s/volume) 115 mg/dL 70-110 Capillary blood glucose measurement by g lucometer (mass/volume) - 07/14/19 14:44 Capillary blood glucose measurement by glucometer (mas s/volume) 201 mg/dL 70-110 Capillary blood glucose measurement by g lucometer (mass/volume) - 07/14/19 19:34 Capillary blood glucose measurement by glucometer (mas s/volume) 147 mg/dL 70-110 Capillary blood glucose measurement by g lucometer (mass/volume) - 07/14/19 21:29 Capillary blood glucose measurement by glucometer (mas s/volume) 142 mg/dL 70-110 Capillary blood glucose measurement by g lucometer (mass/volume) - 07/15/19 06:09 Capillary blood glucose measurement by glucometer (mas s/volume) 107 mg/dL 70-110 Capillary blood glucose measurement by g lucometer (mass/volume) - 07/15/19 10:20 Capillary blood glucose measurement by glucometer (mas s/volume) 143 mg/dL 70-110 Capillary blood glucose measurement by g lucometer (mass/volume) - 07/15/19 14:26 Capillary blood glucose measurement by glucometer (mas s/volume) 213 mg/dL 70-110 Capillary blood glucose measurement by g lucometer (mass/volume) - 07/15/19 20:54 Capillary blood glucose measurement by glucometer (mas s/volume) 176 mg/dL 70-110 Capillary blood glucose measurement by g lucometer (mass/volume) - 07/16/19 06:44 Capillary blood glucose measurement by glucometer (mas s/volume) 52 mg/dL 70-110 Capillary blood glucose measurement by g lucometer (mass/volume) - 07/16/19 07:31 Capillary blood glucose measurement by glucometer (mas s/volume) 96 mg/dL 70-110 Capillary blood glucose measurement by g lucometer (mass/volume) - 07/16/19 10:40 Capillary blood glucose measurement by glucometer (mas s/volume) 145 mg/dL 70-110 Capillary blood glucose measurement by g lucometer (mass/volume) - 07/16/19 15:02 Capillary blood glucose measurement by glucometer (mas s/volume) 263 mg/dL 70-110 Capillary blood glucose measurement by g lucometer (mass/volume) - 07/16/19 20:10 Capillary blood glucose measurement by glucometer (mas s/volume) 220 mg/dL 70-110 Capillary blood glucose measurement by g lucometer (mass/volume) - 07/17/19 06:05 Capillary blood glucose measurement by glucometer (mas s/volume) 78 mg/dL 70-110 Capillary blood glucose measurement by g lucometer (mass/volume) - 07/17/19 09:27 Capillary blood glucose measurement by glucometer (mas s/volume) 157 mg/dL 70-110 Capillary blood glucose measurement by g lucometer (mass/volume) - 07/17/19 14:27 Capillary blood glucose measurement by glucometer (mas s/volume) 310 mg/dL 70-110 Capillary blood glucose measurement by g lucometer (mass/volume) - 07/17/19 20:33 Capillary blood glucose measurement by glucometer (mas s/volume) 163 mg/dL 70-110 Complete blood count (CBC) with automate d white blood cell (WBC) differential - 07/18/19 06:20 Blood leukocytes automated count (number/volume) 4.5 10*3/uL 4.3-11.0 Blood erythrocytes automated count (number/volume) 3.82 10*6/uL 4.35-5.85 Venous blood hemoglobin measurement (mass/volume) 12.8 g/dL 11.5-16.0 Blood hematocrit (volume fraction) 38 % 35-52 Automated erythrocyte mean corpuscular volume 99 [ foz_us] 80-99 Automated erythrocyte mean corpuscular h emoglobin (mass per erythrocyte) 34 pg 25-34 Automated erythrocyte mean corpuscular h emoglobin concentration measurement (mass/volume) 34 g/dL 32-36 Automated erythrocyte distribution width ratio 12. 1 % 10.0- 14.5 Automated blood platelet count (count/volume) 123 10*3/uL 130-400 Automated blood platelet mean volume measurement 10.0 [foz_us] 7.4-10.4 Automated blood neutrophils/100 leukocytes 60 % 42-75 Automated blood lymphocytes/100 leukocytes 25 % 12-44 Blood monocytes/100 leukocytes 14 % 0-12 Automated blood eosinophils/100 leukocytes 0 % 0-10 Automated blood basophils/100 leukocytes 0 % 0-10 Blood neutrophils automated count (number/volume) 2.7 10*3 1.8-7.8 Blood lymphocytes automated count (number/volume) 1.2 10*3 1.0-4.0 Blood monocytes automated count (number/volume) 0. 6 10*3 0.0-1.0 Automated eosinophil count 0.0 10*3/uL 0 .0-0.3 Automated blood basophil count (count/volume) 0.0 10*3/uL 0.0-0.1 Comprehensive metabolic panel - 07/18/19 06:20 Serum or plasma sodium measurement (moles/volume) 136 mmol/L 135-145 Serum or plasma potassium measurement (moles/volume) 3.6 mmol/L 3.6-5.0 Serum or plasma chloride measurement (moles/volume) 102 mmol/L 98-107 Carbon dioxide 26 mmol/L 21-32 Serum or plasma anion gap determination (moles/volume) 8 mmol/L 5-14 Serum or plasma urea nitrogen measurement (mass/volume ) 13 mg/dL 7-18 Serum or plasma creatinine measurement (mass/volume) 0.69 mg/dL 0.60-1.30 Serum or plasma urea nitrogen/creatinine mass ratio 19 NRG Serum or plasma creatinine measurement w ith calculation of estimated glomerular filtration rate > NRG Serum or plasma glucose measurement (mass/volume) 76 mg/dL 70-105 Serum or plasma calcium measurement (mass/volume) 8.7 mg/dL 8.5-10.1 Serum or plasma total bilirubin measurement (mass/volu me) 0.6 mg/dL 0.1-1.0 Serum or plasma alkaline phosphatase marguerite surement (enzymatic activity/volume) 44 U/L 40-136 Serum or plasma aspartate aminotransfera se measurement (enzymatic activity/volume) 11 U/L 5-34 Serum or plasma alanine aminotransferase measurement (enzymatic activity/volume) 18 U/L 0-55 Serum or plasma protein measurement (mass/volume) 5.1 g/dL 6.4-8.2 Serum or plasma albumin measurement (mass/volume) 3.1 g/dL 3.2-4.5 CALCIUM CORRECTED 9.4 mg/dL 8.5-10.1 Capillary blood glucose measurement by g lucometer (mass/volume) - 07/18/19 06:35 Capillary blood glucose measurement by glucometer (mas s/volume) 67 mg/dL 70-110 Capillary blood glucose measurement by g lucometer (mass/volume) - 07/18/19 10:56 Capillary blood glucose measurement by glucometer (mas s/volume) 154 mg/dL 70-110 Encounters ACCT No. Visit Date/Time Discharge Status Pt. Type Provider Facility Loc./Unit Complaint [id number] 04/29/2017 03:04:34 04/29/2017 23:59:5 9 CLS Outpatient [id number] 07/20/2019 13:57:00 23:59:59 CLS Preadmit OBED PRETTY, KARY Oconnor [facility] REHAB GENERAL WEAKNESS [id number] 07/05/2019 10:53:00 15:00:00 DIS Inpatient CHELY ESPARZA DO [facility] IRF AECOPD, PNA [id number] 07/03/2019 21:46:00 10:50:00 DIS Inpatient KARY MEHTA MD [facility] 4TH PNEUMONIA, COPD ACUTE E XACERBATION [id number] 05/28/2019 06:25:00 14:07:00 DIS Emergency KATI MOFFETT MD [facility] ER POSS STROKE [id number] 04/12/2019 10:40:00 12:00:00 DIS Inpatient CHELY ESPARZA DO [facility] IRF DEBILITY [id number] 04/09/2019 13:56:00 10:40:00 DIS Inpatient LEIDA PRETTY, MORRIS Austin [facility] 4TH UTI,BILAT LEG WEAKNESS [id number] 01/16/2019 07:07:00 10:48:00 DIS Emergency MAHOGANY SANTAMARIA DO [facility] ER FALL [id number] 11/29/2018 11:42:00 23:59:59 CLS Outpatient BASIM MASSEY MD [facility] CARD CHEST PAIN [id number] 04/30/2018 14:39:00 018 23:59:59 CLS Outpatient JOSE RAUL SILVESTRE APRN [facility] RAD COUGH,SOA [id number] 03/29/2018 11:00:00 23:59:59 CLS Preadmit BASIM MASSEY MD [facility] CR STABLE ANGINA [id number] 10/07/2017 10:07:00 018 23:59:59 CLS Outpatient AMILCAR HOWELL SKIN CARE INSTRUCTOR [facility] RAD FIBULAR FRACTUR E [id number] 10/02/2017 11:27:00 018 23:59:59 CLS Outpatient AMILCAR HOWELL SKIN CARE INSTRUCTOR [facility] RAD FALL,RT KNEE,AN KLE, AND FOOT PAIN [id number] 08/21/2017 07:12:00 018 09:27:00 DIS Outpatient PETE VALLEJO MD [facility] CATARACT LEFT EYE [id number] 08/14/2017 14:00:00 018 23:59:59 CLS Outpatient PETE VALLEJO MD [facility] PREOP CATARACT LEFT EYE [id number] 08/07/2017 08:18:00 018 10:17:00 DIS Outpatient PETE VALLEJO MD [facility] CATARACT RIGHT EYE [id number] 08/03/2017 05:39:00 018 16:50:00 DIS Outpatient PETE VALLEJO MD [facility] PREOP CATARACT RIGHT EYE [id number] 11/12/2016 13:27:00 017 23:59:59 CLS Outpatient RICCARDO ATKINSON APRN [facility] RT ALLERGIC RHINIT IS [id number] 10/27/2016 13:23:00 017 14:28:00 DIS Outpatient GALE GREGORY MD [facility] CARD M47.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 [id number] 10/24/2016 09:00:00 017 23:59:59 CLS Preadmit GALE GREGORY MD [facility] CARD M47.816,M53.3 [id number] 08/21/2016 09:00:00 017 23:59:59 CLS Preadmit BASMI MASSEY MD [facility] CARD PVC,PALPITATION,HTN [id number] 05/22/2016 09:01:00 017 00:01:00 DIS Outpatient BASIM MASSEY MD [facility] PVC,PALPITATION,HTN [id number] 07/23/2016 06:54:00 017 15:45:00 DIS Outpatient BASIM MASSEY MD [facility] CATH ABNORMAL STRESS TEST,CP ,HTN,DM [id number] 06/18/2016 12:44:00 017 23:59:59 CLS Outpatient JOSE RAUL SILVESTRE APRN [facility] RAD SHORTNESS OF BREATH,CO UGH [id number] 05/28/2016 12:13:00 016 23:59:59 CLS Outpatient BASIM MASSEY MD [facility] CARD ANTERIOR CHEST WALL SEDA NS [id number] 02/15/2016 09:07:00 016 10:18:00 DIS Outpatient GALE GREGORY MD [facility] CARD 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 [id number] 02/01/2016 09:19:00 016 11:12:00 DIS Outpatient GALE GREGORY MD [facility] SPONDYLOSIS W/O MYELOPA THY [id number] 06/18/2015 08:35:00 016 23:59:59 CLS Outpatient GALE GREGORY MD [facility] RAD PAIN IN THORACIC SPINE [id number] 05/14/2015 21:23:00 015 23:50:00 DIS Emergency NEGRONBONITA APRN [facility] ER VOMITING/FEVER [id number] 11/03/2014 09:56:00 23:59:59 CLS Outpatient GALE GREGORY MD [facility] CARD LUMBAR SPONDYLOSIS [id number] 10/20/2014 09:49:00 23:59:59 CLS Outpatient GALE GREGORY MD [facility] CARD SIJD [id number] 09/22/2014 06:49:00 08:03:00 DIS Outpatient GALE GREGORY MD [facility] SACROILIAC JOINT DYSFUN TION [id number] 09/04/2014 00:11:00 23:59:59 CLS Preadmit BOBY BARRETT MD [facility] LAB DIARRHEA [id number] 06/06/2014 14:40:00 015 00:01:00 DIS Outpatient BOBY BARRETT MD [facility] LAB DIARRHEA [id number] 04/17/2014 07:34:00 014 23:59:59 CLS Outpatient BASIM MASSEY MD [facility] CARD HTN,HLP,PVC [id number] 04/13/2014 12:35:00 014 23:59:59 CLS Outpatient BASIM MASSEY MD [facility] CARD HTN,HLP,PVC [id number] 03/01/2014 14:55:00 014 23:59:59 CLS Outpatient ASHLEY PAGAN MD [facility] RAD CERVICALGIA [id number] 02/27/2014 12:28:00 014 13:45:00 DIS Outpatient GALE GREGORY MD [facility] CARD SACROILIAC JOINT DISFUN CTION [id number] 12/30/2013 09:01:00 014 23:59:59 CLS Outpatient GALE GREGORY MD [facility] CARD DISEASE LUMBAR [id number] 12/12/2013 14:52:00 23:59:59 CLS Outpatient GALE GREGORY MD [facility] CARD LUMBAR DDD [id number] 12/09/2013 06:58:00 10:35:00 DIS Inpatient BOBY BARRETT MD [facility] 4TH SEVERE BACK SEDA N, LEISON LFT ILIUM [id number] 12/07/2013 08:27:00 23:59:59 CLS Outpatient BOBY BARRETT MD [facility] RAD LYTIC LEISON [id number] 11/25/2013 14:15:00 23:59:59 CLS Outpatient BOBY BARRETT MD [facility] RAD SEVERE BACK SEDA N [id number] 11/21/2013 13:33:00 23:59:59 CLS Outpatient BOBY BARRETT MD [facility] RAD HX OF BACK SURG CHARY, SEVERE BACK PAIN, [id number] 11/01/2013 06:48:00 23:59:59 CLS Outpatient STAN CANELA MD [facility] SDC SCREENING [id number] 10/27/2013 07:34:00 23:59:59 CLS Outpatient STAN CANELA MD [facility] PREOP SCREENING [id number] 08/04/2014 10:14:00 Document Registration [id number] 04/14/2012 16:29:00 Document Registration [id number] 06/03/2011 08:00:00 Document Registration [id number] 04/03/2011 20:12:00 Document Registration [id number] 03/04/2011 08:05:00 Document Registration [id number] 10/26/2006 14:30:00 Document Registration
== END 2020-01-16 12:59 | disposition home or self-care (01) ==
LOC: EDUNIT# 11:19 → ER 11:21
DX: R42 Dizziness and giddiness (principal); J44.9 Chronic obstructive pulmonary disease, unspecified; I25.10 Atherosclerotic heart disease of native coronary artery without angina pectoris; E78.00 Pure hypercholesterolemia, unspecified; I10 Essential (primary) hypertension; E11.42 Type 2 diabetes mellitus with diabetic polyneuropathy; M19.91 Primary osteoarthritis, unspecified site; Z79.4 Long term (current) use of insulin; Z85.42 Personal history of malignant neoplasm of other parts of uterus
CPT/HCPCS: 36415; 51701; 80048; 81000; 84484; 85025; 85379; 93005

== ENCOUNTER 2021-08-30 17:05 | Emergency (ER) | payer MEDICARE ==
[~2021-08-30] VITALS: Ht 162.6 cm; Wt 101.6 kg
[~2021-08-30 17:05] MED LIST changes: +AMLO-250 PO; -AMLO5TAB9 PO; +DIPH-958 PO; -DIPH25CA45 PO; -LEVO500T80 PO; +LEVO500T81 PO; +MECL-149 PO; +MONT-40 PO; -MONT10TA26 PO; +ONDA4TAB11 PO; -PANT40TA3 PO; +PANT40TA52 PO; -RANO10004 PO; +RANO10005 PO
--- NOTE | 2021-08-30 17:54 | ED Lower Extremity ---
General Chief Complaint: Lower Extremity Stated Complaint: POSSIBLE BLOOD CLOT IN L LEG Nursing Triage Note: PT TO ROOM 03 VIA W/C WITH C/O LEFT LOWER LEG SWELLING. PT'S LEFT LEG FROM BTK TO ABOVE THE ANKLE SWOLLEN UPON ARRIVAL. PT REPORTS THAT HER HOME CARE WORKER NOTICED THE SWELLING AND CALLED PT'S PCP. NURSE FOR PCP INSTRUCTED HOME CARE WORKER TO BRING PT TO ED. PT DENIES PAIN AT THIS TIME. Source: patient (PT IS SOMEWHAT VAGUE AND LIMITED HISTORIAN) History of Present Illness Date Seen by Provider: Aug 30, 2021 Time Seen by Provider: 17:40 Initial Comments PT ARRIVES VIA POV FROM HOME WITH CAREGIVER THIS CAREGIVER IS WITH HER TWICE A WEEK, AND PT HAS A HOME HEALTH NURSE THERE TWICE A WEEK HOME HEALTH NURSE WAS THERE YESTERDAY AND NOTICED REDNESS AND SWELLING TO LEFT LEG, AND CAREGIVER STATES THAT THE NURSE TOLD HER ABOUT IT TODAY PT STATES SHE WAS UNAWARE OF IT--AND HAS NO IDEA HOW LONG HER LEG HAS BEEN RED AND SWOLLEN DENIES PAIN DENIES PARESTHESIAS OR MOTOR DEFICITS--BUT PT HAS HISTORY OF PERIPHERAL NEUROPATHY PT STATES SHE IS WHEELCHAIR BOUND DENIES ANY INJURY TO THE LEG. NO FEVER NO CHEST PAIN NO SHORTNESS OF BREATH NO HISTORY OF SIMILAR PT TAKES 81 MG ASPIRIN A DAY PT IS DIABETIC--HAS NOT CHECKED HER BLOOD SUGAR TODAY PT HAS NOT TAKEN ANY OF HER EVENING MEDICATIONS PCP: DR. MEHTA--HAS NOT SEEN IN OVER A MONTH Allergies and Home Medications Allergies Coded Allergies: Sulfa (Sulfonamide Antibiotics) (Unverified Allergy, Unknown, HIVES, SOB, 10/27/06) morphine (Unverified Allergy, Unknown, Pt has received Lortab in the pas, 07/05/19) propoxyphene (Unverified Allergy, Unknown, UNKNOWN, 10/27/06) erythromycin base (Unverified Adverse Reaction, Unknown, SICK TO HER STOMACH, CRAMPS, VOMITING, 10/27/06) Patient Home Medication List Albuterol Sulfate (Albuterol Sulfate) 2.5 Mg/3 Ml Vial.neb, 2.5 MG IH QID PRN for SHORTNESS OF BREATH, (Reported) Entered as Reported by: SARAI SOTO on 08/03/17 1645 Albuterol Sulfate (Ventolin Hfa) 18 Gm Hfa.aer.ad, 2 PUFF INH Q4H PRN for SHORTNESS OF BREATH, (Reported) Entered as Reported by: BRIAN HARRISON on 07/04/19 09 Amlodipine Besylate (Amlodipine Besylate) 5 Mg Tablet, 5 MG PO DAILY, (Reported) Entered as Reported by: SARAI SOTO on 08/03/17 164 Aspirin (Adult Low Dose Aspirin EC) 81 Mg Tablet.dr, 81 MG PO DAILY, (Reported) Entered as Reported by: LORNA HEWITT on 07/23/16 0759 Atenolol (Atenolol) 25 Mg Tablet, 25 MG PO HS, (Reported) Entered as Reported by: KENNETH BULLARD on 04/09/19 1628 Cholecalciferol (Vitamin D3) (Vitamin D-3) 2,000 Unit Tablet, 2,000 UNIT PO DAILY, (Reported) Entered as Reported by: BRIAN HARRISON on 07/04/19 09 Diphenhydramine HCl (Banophen) 25 Mg Capsule, 50 MG PO HS, (Reported) Entered as Reported by: BRIAN HARRISON on 07/04/19 09 Doxycycline Hyclate (Doxycycline Hyclate) 100 Mg Tablet, 100 MG PO BID Prescribed by: MAHOGANY SANTAMARIA on 08/30/21 1842 Furosemide (Furosemide) 20 Mg Tablet, 20 MG PO DAILY, (Reported) Entered as Reported by: SARAI SOTO on 08/03/17 164 Hydrochlorothiazide (Hydrochlorothiazide) 25 Mg Tablet, 25 MG PO HS, (Reported) Entered as Reported by: MICHELLE NUGENT on 05/14/15 2143 Hydrocodone Bit/Acetaminophen (HYDROcodone/APAP 10/325 TABLET) 1 Each Tablet, 1 TAB PO Q6H PRN for PAIN-MODERATE, (Reported) Entered as Reported by: SARAI SOTO on 08/03/17 1645 Insulin Aspart (Novolog) 100 Unit/1 Ml Susp, 20 UNIT SQ DAILY, (Reported) Entered as Reported by: KENNETH BULLARD on 04/09/19 1636 Insulin Determir (Levemir) 1,000 Units/10 Ml Soln, 10 UNITS SC DAILY, (Reported) Entered as Reported by: BRIAN HARRISON on 07/04/19 09 Insulin Determir (Levemir) 1,000 Units/10 Ml Soln, 15-20 UNITS SQ HS, (Reported) Entered as Reported by: BRIAN HARRISON on 07/04/19 0920 Losartan Potassium (Losartan Potassium) 25 Mg Tablet, 25 MG PO DAILY, (Reported) Entered as Reported by: LORNA HEWITT on 07/23/16 0759 Meclizine HCl (Meclizine HCl) 25 Mg Tablet, 25 MG PO TID PRN for DIZZINESS Prescribed by: BONITA NEGRON on 01/16/20 1250 Miconazole Nitrate (Lotrimin AF) 90 Gm Powder, 0 GM TOP BID Prescribed by: CHELY ESPARZA on 07/18/19 0835 Nystatin (Nystatin) 15 Gm Cream..g., 0 GM TP TID Prescribed by: CHELY ESPARZA on 07/18/19 0835 Ondansetron (Ondansetron Odt) 4 Mg Tab.rapdis, 4 MG PO Q6H PRN for NAUSEA/VOMITING Prescribed by: BONITA NEGRON on 01/16/20 1250 Pantoprazole Sodium (Pantoprazole Sodium) 40 Mg Tablet.dr, 40 MG PO DAILY, (Reported) Entered as Reported by: KENNETH BULLARD on 04/09/19 1628 Prednisone (Prednisone) 10 Mg Tab.ds.pk, 10 MG PO DAILY Prescribed by: CHELY ESPARZA on 07/18/19 0835 Promethazine HCl/Codeine (Prometh-Codein 6.25-10 mg/5 ml) 5 Ml Syrup, 5-10 ML PO Q6H PRN for COUGH, (Reported) Entered as Reported by: BRIAN HARRISON on 07/04/19 0920 Ranolazine (Ranolazine ER) 1,000 Mg Tab.er.12h, 1,000 MG PO BID, (Reported) Entered as Reported by: BRIAN HARRISON on 07/04/19 0920 Rosuvastatin Calcium (Rosuvastatin Calcium) 10 Mg Tablet, 10 MG PO HS, (Reported) Entered as Reported by: SARAI SOTO on 08/03/17 1645 Spironolactone (Spironolactone) 25 Mg Tablet, 25 MG PO DAILY, (Reported) Entered as Reported by: SARAI SOTO on 08/03/17 1645 Review of Systems Constitutional: no symptoms reported Respiratory: no symptoms reported Cardiovascular: no symptoms reported Gastrointestinal: no symptoms reported Genitourinary: no symptoms reported Musculoskeletal: see HPI Skin: see HPI Psychiatric/Neurological: No Symptoms Reported Past Pwlpmen-Pmwiio-Wkjtxh Hx Patient Social History Tobacco Use?: No Smoking Status: Never a Smoker Smokeless Tobacco Frequency: Never a User Use of E-Cig and/or Vaping dev: No Use of E-Cig and/or Vaping Geo: Never a User Substance use?: No Alcohol Use?: No Pt feels they are or have been: No Immunizations Up To Date Tetanus Booster (TDap): Unknown PED Vaccines UTD: Yes First/Initial COVID19 Vaccinat: 07/24/20 Second COVID19 Vaccination Jose: 08/21/20 COVID19 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: [employer] Seasonal Allergies Seasonal Allergies: No Past Medical History Surgeries: Yes Adenoidectomy, Appendectomy, Cardiac, Eye Surgery, Gallbladder, Hysterectomy, Oophorectomy, Orthopedic, Tonsillectomy Respiratory: Yes (O2 PRN) Asthma, COPD Cardiac: Yes Coronary Artery Disease, High Cholesterol, Hypertension Neurological: Yes (PERIPHERAL NEUROPATHY) Neuropathy Reproductive Disorders: Yes (ENDOMETRIAL CANCER--S/P HYST/BSO) MATTRESS WEAVER History: Hysterectomy Genitourinary: No Gastrointestinal: Yes (HEPATITIS CHILD) Hepatitis, Ulcer Musculoskeletal: Yes Degenerate Disk Disease, Arthritis, Back Injury, Chronic Back Pain Endocrine: Yes (OBESITY) Diabetes, Insulin dep HEENT: Yes Cataract Loss of Vision: Denies Hearing Impairment: Denies Cancer: Yes (ENDOMETRIAL CANCER) Uterine Did You Recieve Any Treatments: Yes What Type of Treatment Did You: Surgical Intervention Psychosocial: No Integumentary: No Blood Disorders: No Family Medical History Patient reports no known family medical history. No Pertinent Family Hx PAST SURGICAL HISTORY: -HYSTERECTOMY/BILATERAL SALPINGO-OOPORECTOMY FOR ENDOMETRIAL CANCER -CHOLECYSTECTOMY -APPENDECTOMY -TONSILLECTOMY/ADENOIDECTOMY Physical Exam Vital Signs Vital Signs - First Documented 08/30/21 17:10 Temp 37.2 Pulse 69 Resp 16 B/P (MAP) 191/115 (140) Pulse Ox 95 O2 Delivery Nasal Cannula O2 Flow Rate 1.50 Capillary Refill : Less Than 3 Seconds Height, Weight, BMI Height: 5'4.00" Weight: 230lbs. 0.0oz. [id number]; 38.00 BMI Method:Stated General Appearance: WD/WN, no apparent distress, obese Neck: normal inspection Cardiovascular: regular rate, rhythm, no murmur Respiratory: normal breath sounds Legs: left leg other (LEFT LOWER LEG WITH 3+ SWELLING FROM KNEE TO TOES, WITH MODERATE ERYTHEMA OF LOWER HALF OF LEFT LOWER LEG. FOOT IS PINK AND WARM WITH GOOD CAPILLARY REFILL. UNABLE TO PALPATE PULSES DUE TO SWELLING. HAS SENSATION TO LIGHT TOUCH. MOTOR IS INTACT. ) Neurologic/Psychiatric: no motor/sensory deficits, alert, normal mood/affect, oriented x 3 Skin: normal color, warm/dry, other ( ABOVE) Progress/Results/Core Measures Results/Orders Lab Results Laboratory Tests Test 08/30/21 17:48 Range/Units White Blood Count 8.0 4.3-11.0 10^3/uL Red Blood Count 5.15 H 3.80-5.11 10^6/uL Hemoglobin 16.8 H 11.5-16.0 g/dL Hematocrit 51 35-52 % Mean Corpuscular Volume 98 80-99 fL Mean Corpuscular Hemoglobin 33 25-34 pg Mean Corpuscular Hemoglobin Concent 33 32-36 g/dL Red Cell Distribution Width 11.8 10.0-14.5 % Platelet Count 148 130-400 10^3/uL Mean Platelet Volume 10.7 9.0-12.2 fL Immature Granulocyte % (Auto) 0 % Neutrophils (%) (Auto) 58 42-75 % Lymphocytes (%) (Auto) 29 12-44 % Monocytes (%) (Auto) 9 0-12 % Eosinophils (%) (Auto) 3 0-10 % Basophils (%) (Auto) 1 0-10 % Neutrophils # (Auto) 4.6 1.8-7.8 10^3/uL Lymphocytes # (Auto) 2.3 1.0-4.0 10^3/uL Monocytes # (Auto) 0.7 0.0-1.0 10^3/uL Eosinophils # (Auto) 0.2 0.0-0.3 10^3/uL Basophils # (Auto) 0.1 0.0-0.1 10^3/uL Immature Granulocyte # (Auto) 0.0 0.0-0.1 10^3/uL Erythrocyte Sedimentation Rate 7 0-30 MM/HR Prothrombin Time 12.9 12.2-14.7 SEC INR Comment 0.9 0.8-1.4 Activated Partial Thromboplast Time 29 24-35 SEC D-Dimer 0.66 H 0.00-0.49 UG/ML Sodium Level 139 135-145 MMOL/L Potassium Level 4.0 3.6-5.0 MMOL/L Chloride Level 100 98-107 MMOL/L Carbon Dioxide Level 23 21-32 MMOL/L Anion Gap 16 H 5-14 MMOL/L Blood Urea Nitrogen 10 7-18 MG/DL Creatinine 0.87 0.60-1.30 MG/DL Estimat Glomerular Filtration Rate 67 BUN/Creatinine Ratio 11 Glucose Level 321 H 70-105 MG/DL Calcium Level 9.6 8.5-10.1 MG/DL Corrected Calcium 9.8 8.5-10.1 MG/DL Magnesium Level 1.8 1.6-2.4 MG/DL Total Bilirubin 0.7 0.1-1.0 MG/DL Aspartate Amino Transf (AST/SGOT) 41 H 5-34 U/L Alanine Aminotransferase (ALT/SGPT) 40 0-55 U/L Alkaline Phosphatase 88 40-136 U/L C-Reactive Protein High Sensitivity 0.22 0.00-0.50 MG/DL B-Type Natriuretic Peptide 190.9 H <100.0 PG/ML Total Protein 6.6 6.4-8.2 GM/DL Albumin 3.8 3.2-4.5 GM/DL My Orders Orders - MAHOGANY SANTAMARIA DO Ed Iv/Invasive Line Start (08/30/21 17:43) Bnp Powell (08/30/21 17:43) Cbc With Automated Diff (08/30/21 17:43) Comprehensive Metabolic Panel (08/30/21 17:43) Fibrin Degradation Products (08/30/21 17:43) Magnesium (08/30/21 17:43) Protime With Inr (08/30/21 17:43) Partial Thromboplastin Time (08/30/21 17:43) Hs C Reactive Protein (08/30/21 17:47) Erythrocyte Sedimentation Rate (08/30/21 17:47) Us Venous Lower Ext Lt (08/31/21 08:00) Ed Iv/Invasive Line Start (08/30/21 18:21) Ns Iv 1000 Ml (Sodium Chloride 0.9%) (08/30/21 18:30) Nitroglycerin Ointment (Nitrobid Ointme (08/30/21 18:30) Enoxaparin Injection (Lovenox Injection) (08/30/21 18:30) Insulin (Regular) Human (Novolin R (Per (08/30/21 18:45) Ceftriaxone 1 Gm Pre-Mix (Rocephin 1 Gm (08/30/21 18:36) Accucheck Stat ONCE (08/30/21 18:43) Rx-Doxycycline Tablet (Rx-Vibramycin Tab (08/30/21 18:43) Ondansetron Injection (Zofran Injectio (08/30/21 19:30) Medications Given in ED Current Medications Medications Dose Ordered Sig/Deepika Route Start Time Stop Time Status Last Admin Dose Admin Enoxaparin Sodium 100 mg ONCE ONCE SC 08/30/21 18:30 08/30/21 18:31 DC 08/30/21 18:40 100 MG Nitroglycerin 1 inch ONCE ONCE TOP 08/30/21 18:30 08/30/21 18:31 DC 08/30/21 18:40 1 INCH Ondansetron HCl 4 mg ONCE ONCE IVP 08/30/21 19:30 08/30/21 19:31 DC 08/30/21 19:31 4 MG Vital Signs/I&O 08/30/21 17:10 Temp 37.2 Pulse 69 Resp 16 B/P (MAP) 191/115 (140) Pulse Ox 95 O2 Delivery Nasal Cannula O2 Flow Rate 1.50 Blood Pressure Mean: 140 Departure Communication (Admissions) 1830--SPOKE WITH DR. MEHTA, PT WITH LONG HISTORY OF NON-COMPLIANCE IN ALL ASPECTS OF CARE, AND PT IS REFUSING ADMIT AT THIS TIME. WILL ARRANGE FOR OUTPATIENT ULTRASOUND TOMORROW, AND SHE ADVISES LOVENOX NOW, ROCEPHIN HERE AND RX FOR DOXYCYCLINE. SHE WILL SEE PT IN OFFICE ON THURSDAY Impression Primary Impression: LEFT LEG REDNESS AND SWELLING Additional Impressions: Uncontrolled diabetes mellitus Uncontrolled hypertension Disposition: HOME, SELF-CARE Condition: Stable Departure-Patient Inst. Decision time for Depature: 18:30 Referrals: KARY MEHTA MD (PCP) Primary Care Physician Patient Instructions: Cellulitis (Skin Infection), Adult (DC), Deep Vein Thr ombosis (Blood Clots in the Legs) (DC), Dependent Edema (DC), High Blood Pressure (DC), High Blood Sugar, Adult ED, How to Keep Track of Your Blood Sugar Add. Discharge Instructions: YOU NEED TO BE HERE AT 0730 IN THE MORNING ( Thursday08/31/21) TO HAVE OUTPATIENT ULTRASOUND TAKE YOUR MEDICATIONS PRESCRIBED--DO NOT MISS ANY DOSES OF MEDICATIONS YOU NEED TO CHECK YOUR BLOOD SUGAR AT LEAST 3 TIMES A DAY AND KEEP A DIARY FOLLOW UP WITH DR. MEHTA ON THURSDAY--CALL FIRST THING THURSDAY MORNING TO GET APPOINTMENT. RETURN TO ER IF SYMPTOMS WORSEN All discharge instructions reviewed with patient and/or family. Voiced understanding. Scripts Doxycycline Hyclate (Doxycycline Hyclate) 100 Mg Tablet 100 MG PO BID, #20 TAB 0 Refills Prov: MAHOGANY SANTAMARIA DO 08/30/21 MAHOGANY SANTAMARIA DO Aug 30, 2021 17:54
[2021-08-30 17:58] LABS: BASOPHILS # (AUTO) 0.1 10^3/uL (0.0-0.1); BASOPHILS % (AUTO) 1 % (0-10); EOSINOPHILS # (AUTO) 0.2 10^3/uL (0.0-0.3); EOSINOPHILS % (AUTO) 3 % (0-10); HEMATOCRIT 51 % (35-52); HEMOGLOBIN 16.8 g/dL (11.5-16.0); LYMPHOCYTES # (AUTO) 2.3 10^3/uL (1.0-4.0); LYMPHOCYTES % (AUTO) 29 % (12-44); MEAN CORPUSCULAR HEMOGLOBIN 33 pg (25-34); MEAN CORPUSCULAR HGB CONC 33 g/dL (32-36); MEAN CORPUSCULAR VOLUME 98 fL (80-99); MEAN PLATELET VOLUME 10.7 fL (9.0-12.2); MONOCYTES # (AUTO) 0.7 10^3/uL (0.0-1.0); MONOCYTES % (AUTO) 9 % (0-12); NEUTROPHILS # (AUTO) 4.6 10^3/uL (1.8-7.8); NEUTROPHILS % (AUTO) 58 % (42-75); PLATELET COUNT 148 10^3/uL (130-400)
[2021-08-30 18:07] LABS: ALBUMIN 3.8 GM/DL (3.2-4.5)
[2021-08-30 18:09] LABS: CALCIUM 9.6 MG/DL (8.5-10.1)
[2021-08-30 18:10] LABS: TOTAL PROTEIN 6.6 GM/DL (6.4-8.2)
[2021-08-30 18:12] LABS: BILIRUBIN,TOTAL 0.7 MG/DL (0.1-1.0); FIBRIN DEGRADATION PRODUCTS 0.66 UG/ML (0.00-0.49); INR 0.9 (0.8-1.4); PROTHROMBIN TIME PATIENT 12.9 SEC (12.2-14.7)
[2021-08-30 18:14] LABS: CREATININE SERUM 0.87 MG/DL (0.60-1.30)
[2021-08-30 18:17] LABS: MAGNESIUM 1.8 MG/DL (1.6-2.4)
[2021-08-30 18:24] LABS: ERYTHROCYTE SEDIMENTATION RATE 7 MM/HR (0-30)
[2021-08-30] MEDS ORDERED: NS IV 1000 ML 1,000 ML IV SCH (18:30)
[2021-08-30] MEDS ORDERED: NITROGLYCERIN 2% OINT 1 GM UNIT DOSE PACKET TOP ONE (18:30)
[2021-08-30] MEDS ORDERED: ENOXAPARIN 100 MG/1 ML (LOVENOX) SYR SC ONE (18:30)
[2021-08-30] MEDS ORDERED: cefTRIAXone 1 GM PRE-MIX 50 ML IV STA (18:36)
[2021-08-30] MEDS ORDERED: DOXY100T2 PO (18:42)
[2021-08-30] MEDS ORDERED: RX-DOXYCYCLINE 100 MG (VIBRAMYCIN) TAB PPK#2 PO STA (18:43)
[2021-08-30] MEDS ORDERED: inSUlin (REGULAR) HUMAN 1 UNIT/0.01 ML (CHARGE PER UNIT) IV ONE (18:45)
[2021-08-30] MEDS ORDERED: ONDANSETRON 4 MG/2 ML (SDV) Z0FRAN IVP ONE (19:30)
[2021-08-30 19:40] VITALS: BP 152/73
== END 2021-08-30 19:57 | disposition home or self-care (01) ==
LOC: EDUNIT# 17:05 → ER 17:07
DX: M79.89 Other specified soft tissue disorders (principal); R23.8 Other skin changes; I10 Essential (primary) hypertension; E11.9 Type 2 diabetes mellitus without complications; E66.9 Obesity, unspecified; Z91.19 Patient's noncompliance with other medical treatment and regimen; Z68.38 Body mass index [BMI] 38.0-38.9, adult; Z88.2 Allergy status to sulfonamides; Z99.3 Dependence on wheelchair; Z86.69 Personal history of other diseases of the nervous system and sense organs
CPT/HCPCS: 36415; 80053; 83735; 83880; 85025; 85379; 85610; 85652; 85730; 86141

== ENCOUNTER → 2021-08-31 | Outpatient (CLI) | payer MEDICARE ==
[~2021-08-31] MED LIST changes: +DOXY100T2 PO
--- NOTE | 2021-08-31 08:29 | Diagnostic Imaging Report ---
PROCEDURE: US left lower extremity venous. TECHNIQUE: Multiple real-time grayscale images were obtained over the left lower extremity in various projections. Additional duplex Doppler and color Doppler images were also obtained. INDICATION: Left leg redness and swelling. EXAMINATION: Left lower extremity venous Doppler 08/31/2021. TECHNIQUE: Waveform and spectral analysis of the lower extremity venous structures. FINDINGS: There is no evidence for deep vein thrombosis with normal compressibility, augmentation and spontaneity of all visualized venous structures. Subcutaneous edema is noted. IMPRESSION: 1. No evidence for deep vein thrombosis. Dictated by: Dictated on workstation # [id number]
== END ==
LOC: RAD 07:36
PROVIDERS: ATTEND Emergency Medicine
DX: M79.89 Other specified soft tissue disorders (principal)

== ENCOUNTER 2023-05-14 03:01 | Inpatient (IN) | payer MEDICARE ==
[2023-05-14] VITALS (7 sets, daily range): BP systolic 111–124; BP diastolic 56–94
[~2023-05-14] VITALS: Ht 163 cm; Wt 116.8 kg
[~2023-05-14 03:01] MED LIST changes: +COLE625T30 PO; -COLE625T9 PO; -DIPH-958 PO; -INSU100I29 SQ; +INSU100I30 SQ; +LEVO-55 PO; -LEVO500T81 PO; -MECL-149 PO; +MECL-291 PO; +NF-CRES10T PO; -NYST15CR TP; +NYST15CR35 TP; -ROSU10TA22 PO; +[UNRECOGNIZED DRUG - CODE] PO
--- NOTE | 2023-05-14 03:33 | ED General ---
General Chief Complaint: General Problems/Pain Stated Complaint: WEAKNESS Nursing Triage Note: brought in by [facility] for generalized weakness, upper airway congestion, feeling "sick" x1 week. Source of Information: Patient History of Present Illness Date Seen by Provider: May 14, 2023 Time Seen by Provider: 03:33 Initial Comments Patient is an 82-year-old female brought to the emergency room by ambulance, chief complaint generalized weakness. The patient cannot really tell me any timeline of events prior to arrival. Very poor historian. Was reportedly in the 80s on her 3 L at home. Denies any complaints of chest pain, nausea, diarrhea, urinary complaints. Her is not available for further history. Patient is a bit somnolent on arrival. Timing/Duration: Other (unknown) Allergies and Home Medications Allergies Coded Allergies: Sulfa (Sulfonamide Antibiotics) (Unverified Allergy, Unknown, HIVES, SOB, 10/27/06) morphine (Unverified Allergy, Unknown, Pt has received Lortab in the pas, 07/05/19) propoxyphene (Unverified Allergy, Unknown, UNKNOWN, 10/27/06) erythromycin base (Unverified Adverse Reaction, Unknown, SICK TO HER STOMACH, CRAMPS, VOMITING, 10/27/06) Patient Home Medication List Home Medication List Reviewed: Yes Duloxetine HCl (Duloxetine HCl) 30 Mg Capsule.dr, 30 MG PO DAILY, (Reported) Entered as Reported by: GERBER CAR on 05/14/23 1492 Last Action: Reviewed Famotidine (Famotidine) 20 Mg Tablet, 40 MG PO BID, (Reported) Entered as Reported by: GERBER CAR on 05/14/23 135 Last Action: Reviewed Fexofenadine HCl (Fexofenadine HCl) 180 Mg Tablet, 180 MG PO DAILY, (Reported) Entered as Reported by: GERBER CAR on 05/14/23 5801 Last Action: Reviewed Hydrocodone/Acetaminophen (Hydrocodone-Acetamin 10-325 mg) 10 Mg-325 Mg Tablet, 1 EA PO Q6H PRN for PAIN-MODERATE (5-7), (Reported) Entered as Reported by: GERBER CAR on 05/14/23 1174 Last Action: Reviewed Insulin Determir (Levemir) 100 Unit/Ml Soln, 50 UNITS SQ HS, (Reported) Entered as Reported by: BRIAN HARRISON on 07/04/19919 Last Action: Reviewed Metoprolol Succinate (Metoprolol Succinate) 25 Mg Tab.er.24h, 25 MG PO DAILY, (Reported) Entered as Reported by: GERBER CAR on 05/14/23 1358 Last Action: Reviewed Discontinued Medications Albuterol Sulfate (Albuterol Sulfate) 2.5 Mg/3 Ml Vial.neb, 2.5 MG IH QID PRN for SHORTNESS OF BREATH, (Reported) Discontinued Reason: No Longer Taking Entered as Reported by: SARAI SOTO on 08/03/17 1645 Last Action: Discontinued Albuterol Sulfate (Ventolin Hfa) 18 Gm Hfa.aer.ad, 2 PUFF INH Q4H PRN for SHORTNESS OF BREATH, (Reported) Discontinued Reason: No Longer Taking Entered as Reported by: BRIAN HARRISON on 07/04/19919 Last Action: Discontinued Amlodipine Besylate (Amlodipine Besylate) 5 Mg Tablet, 5 MG PO DAILY, (Reported) Discontinued Reason: No Longer Taking Entered as Reported by: SARAI SOTO on 08/03/17 1645 Last Action: Discontinued Aspirin (Adult Low Dose Aspirin EC) 81 Mg Tablet.dr, 81 MG PO DAILY, (Reported) Discontinued Reason: No Longer Taking Entered as Reported by: LORNA HEWITT on 07/23/16 0759 Last Action: Discontinued Atenolol (Atenolol) 25 Mg Tablet, 25 MG PO HS, (Reported) Discontinued Reason: No Longer Taking Entered as Reported by: KENNETH BULLARD on 04/09/19 1628 Last Action: Discontinued Cholecalciferol (Vitamin D3) (Vitamin D-3) 2,000 Unit Tablet, 2,000 UNIT PO DAILY, (Reported) Discontinued Reason: No Longer Taking Entered as Reported by: BRIAN HARRISON on 07/04/19919 Last Action: Discontinued Diphenhydramine HCl (Banophen) 25 Mg Capsule, 50 MG PO HS, (Reported) Discontinued Reason: No Longer Taking Entered as Reported by: BRIAN HARRISON on 07/04/19919 Last Action: Discontinued Doxycycline Hyclate (Doxycycline Hyclate) 100 Mg Tablet, 100 MG PO BID Discontinued Reason: No Longer Taking Prescribed by: MAHOGANY SANTAMARIA on 08/30/21 1842 Last Action: Discontinued Furosemide (Furosemide) 20 Mg Tablet, 20 MG PO DAILY, (Reported) Discontinued Reason: No Longer Taking Entered as Reported by: SARAI SOTO on 08/03/17 164 Last Action: Discontinued Hydrochlorothiazide (Hydrochlorothiazide) 25 Mg Tablet, 25 MG PO HS, (Reported) Discontinued Reason: No Longer Taking Entered as Reported by: MICHELLE NUGENT on 05/14/15 789 Last Action: Discontinued Hydrocodone Bit/Acetaminophen (HYDROcodone/APAP 10/325 TABLET) 1 Each Tablet, 1 TAB PO Q6H PRN for PAIN-MODERATE, (Reported) Discontinued Reason: No Longer Taking Entered as Reported by: SARIA SOTO on 08/03/17 1645 Last Action: Discontinued Insulin Aspart (Novolog) 100 Unit/1 Ml Susp, 20 UNIT SQ DAILY, (Reported) Discontinued Reason: No Longer Taking Entered as Reported by: KENNETH BULLARD on 04/09/19 1636 Last Action: Discontinued Insulin Determir (Levemir) 1,000 Units/10 Ml Soln, 10 UNITS SC DAILY, (Reported) Discontinued Reason: No Longer Taking Entered as Reported by: BRIAN HARRISON on 07/04/1920 Last Action: Discontinued Losartan Potassium (Losartan Potassium) 25 Mg Tablet, 25 MG PO DAILY, (Reported) Discontinued Reason: No Longer Taking Entered as Reported by: LORNA HEWITT on 07/23/16 0759 Last Action: Discontinued Meclizine HCl (Meclizine HCl) 25 Mg Tablet, 25 MG PO TID PRN for DIZZINESS Discontinued Reason: No Longer Taking Prescribed by: BONITA NEGRON on 01/16/20 125 Last Action: Discontinued Miconazole Nitrate (Lotrimin AF) 90 Gm Powder, 0 GM TOP BID Discontinued Reason: No Longer Taking Prescribed by: CHELY ESPARZA on 07/18/19834 Last Action: Discontinued Nystatin (Nystatin) 15 Gm Cream..g., 0 GM TP TID Discontinued Reason: No Longer Taking Prescribed by: CHELY ESPARZA on 07/18/19834 Last Action: Discontinued Ondansetron (Ondansetron Odt) 4 Mg Tab.rapdis, 4 MG PO Q6H PRN for NAUSEA/VOMITING Discontinued Reason: No Longer Taking Prescribed by: BONITA NEGRON on 01/16/201249 Last Action: Discontinued Pantoprazole Sodium (Pantoprazole Sodium) 40 Mg Tablet.dr, 40 MG PO DAILY, (Reported) Discontinued Reason: No Longer Taking Entered as Reported by: KENNETH BULLARD on 04/09/19 1628 Last Action: Discontinued Prednisone (Prednisone) 10 Mg Tab.ds.pk, 10 MG PO DAILY Discontinued Reason: No Longer Taking Prescribed by: CHELY ESPARZA on 07/18/19 0835 Last Action: Discontinued Promethazine HCl/Codeine (Prometh-Codein 6.25-10 mg/5 ml) 5 Ml Syrup, 5-10 ML PO Q6H PRN for COUGH, (Reported) Discontinued Reason: No Longer Taking Entered as Reported by: BRIAN HARRISON on 07/04/19 09 Last Action: Discontinued Ranolazine (Ranolazine ER) 1,000 Mg Tab.er.12h, 1,000 MG PO BID, (Reported) Discontinued Reason: No Longer Taking Entered as Reported by: BRIAN HARRISON on 07/04/19919 Last Action: Discontinued Rosuvastatin Calcium (Rosuvastatin Calcium) 10 Mg Tablet, 10 MG PO HS, (Reported) Discontinued Reason: No Longer Taking Entered as Reported by: SARAI SOTO on 08/03/17 164 Last Action: Discontinued Spironolactone (Spironolactone) 25 Mg Tablet, 25 MG PO DAILY, (Reported) Discontinued Reason: No Longer Taking Entered as Reported by: SARAI SOTO on 08/03/171644 Last Action: Discontinued Review of Systems Review of Systems Constitutional: see HPI Unable to obtain from patient due to apparent confusion Past Stfuadv-Zumcfo-Wskrxs Hx Patient Social History Tobacco Use?: No Substance use?: No Alcohol Use?: No Pt feels they are or have been: No Immunizations Up To Date Tetanus Booster (TDap): Unknown PED Vaccines UTD: Yes First/Initial COVID19 Vaccinat: 07/24/20 Second COVID19 Vaccination Jose: 08/21/20 Third COVID19 Vaccination Date: 07/24/20 Seasonal Allergies Seasonal Allergies: No Past Medical History Surgery/Hospitalization HX: t/a, appendectomy, cardiac stents, hysterectomy/oopherectomy, cholecystectomy, lumbar laminectomy, egd, iddm, htn, hld, asthma, copd, peripheral neuropathy, endometrial ca, hepatitis, vertigo Surgeries: Yes Adenoidectomy, Appendectomy, Cardiac, Eye Surgery, Gallbladder, Hysterectomy, Oophorectomy, Orthopedic, Tonsillectomy Respiratory: Yes (O2 PRN) Asthma, COPD Cardiac: Yes Coronary Artery Disease, High Cholesterol, Hypertension Neurological: Yes (PERIPHERAL NEUROPATHY) Neuropathy Reproductive Disorders: Yes (ENDOMETRIAL CANCER--S/P HYST/BSO) [employer]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 No Pertinent Family Hx PAST SURGICAL HISTORY: -HYSTERECTOMY/BILATERAL SALPINGO-OOPORECTOMY FOR ENDOMETRIAL CANCER -CHOLECYSTECTOMY -APPENDECTOMY -TONSILLECTOMY/ADENOIDECTOMY Physical Exam Vital Signs Vital Signs - First Documented 05/14/23 04:36 FiO2 60 Capillary Refill : Less Than 3 Seconds Height, Weight, BMI Height: 5'4.00" Weight: 230lbs. 0.0oz. 104.008460mc; 39.00 BMI Method:Stated General Appearance: Chronically ill, Moderate Distress, Obese Eyes: Bilateral Eye Other (chemosis) HEENT: Other (chemosis bilaterally) Respiratory: Decreased Breath Sounds (on the right; clear on the left), Other (labored breathing; clear on the left) Cardiovascular: Regular Rate, Rhythm Gastrointestinal: Non Tender, Soft, Other (morbid obesity) Extremity: No Pedal Edema Neurologic/Psychiatric: Alert, Normal Mood/Affect Skin: Warm/Dry, Pallor Focused Exam Lactate Level 05/14/23 04:00: Lactic Acid Level 1.16 Lactic Acid Level Laboratory Tests Test 05/14/23 04:00 Lactic Acid Level 1.16 MMOL/L (0.50-2.00) Progress/Results/Core Measures Suspected Sepsis SIRS Temperature: Pulse: 70 Respiratory Rate: 18 Laboratory Tests 05/14/23 03:09: White Blood Count 7.1 Blood Pressure 121 /82 Mean: 95 05/14/23 04:00: Lactic Acid Level 1.16 Laboratory Tests 05/14/23 03:09: Creatinine 0.81, INR Comment 1.1, Platelet Count 157, Total Bilirubin 1.0 Results/Orders Lab Results Laboratory Tests Test 05/14/23 03:08 05/14/23 03:09 05/14/23 04:00 05/14/23 04:09 Range/Units Glucometer 192 H 70-110 MG/DL White Blood Count 7.1 4.3-11.0 10^3/uL Red Blood Count 4.84 3.80-5.11 10^6/uL Hemoglobin 15.2 11.5-16.0 g/dL Hematocrit 50 35-52 % Mean Corpuscular Volume 103 H 80-99 fL Mean Corpuscular Hemoglobin 31 25-34 pg Mean Corpuscular Hemoglobin Concent 31 L 32-36 g/dL Red Cell Distribution Width 13.5 10.0-14.5 % Platelet Count 157 130-400 10^3/uL Mean Platelet Volume 10.9 9.0-12.2 fL Immature Granulocyte % (Auto) 0 % Neutrophils (%) (Auto) 75 42-75 % Lymphocytes (%) (Auto) 12 12-44 % Monocytes (%) (Auto) 11 0-12 % Eosinophils (%) (Auto) 1 0-10 % Basophils (%) (Auto) 0 0-10 % Neutrophils # (Auto) 5.4 1.8-7.8 10^3/uL Lymphocytes # (Auto) 0.9 L 1.0-4.0 10^3/uL Monocytes # (Auto) 0.8 0.0-1.0 10^3/uL Eosinophils # (Auto) 0.0 0.0-0.3 10^3/uL Basophils # (Auto) 0.0 0.0-0.1 10^3/uL Immature Granulocyte # (Auto) 0.0 0.0-0.1 10^3/uL Prothrombin Time 14.8 H 12.2-14.7 SEC INR Comment 1.1 0.8-1.4 Activated Partial Thromboplast Time 32 24-35 SEC Sodium Level 140 135-145 MMOL/L Potassium Level 4.1 3.6-5.0 MMOL/L Chloride Level 100 98-107 MMOL/L Carbon Dioxide Level 31 21-32 MMOL/L Anion Gap 9 5-14 MMOL/L Blood Urea Nitrogen 15 7-18 MG/DL Creatinine 0.81 0.60-1.30 MG/DL Estimat Glomerular Filtration Rate 73 BUN/Creatinine Ratio 19 Glucose Level 209 H 70-105 MG/DL Calcium Level 8.0 L 8.5-10.1 MG/DL Corrected Calcium 9.0 8.5-10.1 MG/DL Total Bilirubin 1.0 0.1-1.0 MG/DL Aspartate Amino Transf (AST/SGOT) 23 5-34 U/L Alanine Aminotransferase (ALT/SGPT) 18 0-55 U/L Alkaline Phosphatase 81 40-136 U/L B-Type Natriuretic Peptide 1667.6 H <100.0 PG/ML Total Protein 5.6 L 6.4-8.2 GM/DL Albumin 2.8 L 3.2-4.5 GM/DL Lactic Acid Level 1.16 0.50-2.00 MMOL/L Arterial Blood pH 7.28 *L 7.37-7.43 Arterial Blood Partial Pressure CO2 85 *H 35-45 MMHG Arterial Blood Partial Pressure O2 115 H 79-93 MMHG Arterial Blood HCO3 40 H 23-27 MMOL/L Arterial Blood Total CO2 42.5 *H 21.0-31.0 MMOL/L Arterial Blood Oxygen Saturation 97 94-100 % Arterial Blood Base Excess 9.6 H -2.5-2.5 MMOL/L Blood Gas Ventilator Setting NO Blood Gas Inspired Oxygen 10L Micro Results Microbiology 05/14/23 Blood Culture - Preliminary, Resulted 05/14/23 Blood Culture - Preliminary, Resulted My Orders Orders - MALCOLM SIMEON MD Cbc And Automated Diff (05/14/23 03:39) Comprehensive Metabolic Panel (05/14/23 03:39) Blood Culture (05/14/23 03:39) Sputum Culture (05/14/23 03:39) Urinalysis (05/14/23 03:39) Urine Culture (05/14/23 03:39) Protime With Inr (05/14/23 03:39) Partial Thromboplastin Time (05/14/23 03:39) Chest 1 View, Ap/Pa Only (05/14/23 03:39) Ed Iv/Invasive Line Start (05/14/23 03:39) Ed Iv/Invasive Line Start (05/14/23 03:39) Vital Signs Adult Sepsis Patie Q15M (05/14/23 03:39) O2 (05/14/23 03:39) Remove Rings In Anticipation O (05/14/23 03:39) Lactic Acid Analyzer (05/14/23 03:39) Bnp Ryan (05/14/23 03:39) Arterial Blood Gas (05/14/23 04:15) Ed Admission (Communication) (05/14/23 05:14) Fentanyl Injection (Fentanyl Injection (05/14/23 05:30) Vital Signs/I&O 05/14/23 05/14/23 05/14/23 05/14/23 03:05 03:05 04:36 05:44 Temp 36.6 36.7 Pulse 70 61 Resp 18 10 B/P (MAP) 121/82 (95) 142/87 Pulse Ox 92 95 94 O2 Delivery Nasal Cannula Nasal Cannula Vapotherm NIV Bilevel O2 Flow Rate 3.00 3.00 25.00 60.00 FiO2 60 05/14/23 05:47 Pulse 68 Pulse Ox 98 O2 Flow Rate 50.00 Capillary Refill : Less Than 3 Seconds Blood Pressure Mean: 95 Point of Care Testing Finger Stick Blood Glucose: 192 Blood Glucose Action Taken: RN NOTIFIED Progress Note : Time: 05:00 Progress Note Patient seen and evaluated by me, evaluation today includes history (limited) and physical exam, "sepsis protocol"CBC, Chem-12, coag profile, blood cultures and lactic acid, BNP, single view chest x-ray, ABG. Pertinent physical exam fin dings include super morbidly obese female, somnolent on nasal cannula high flow oxygen, afebrile, not tachycardic, good blood pressure. Rousable to verbal stimuli. Dry oral mucosa. Mild chemosis of both eyes. Heart is regular, very diminished breath sounds on the right, clear on the left. Greatly distended abdomen, edema in the lower extremities. Exam is limited due to body habitus. She seems to be answering questions appropriately, yeses and noes. Cannot recall anything in particular that prompted the emergency department visit however. Differential diagnosis includes pneumonia, severe COPD, sepsis, dehydration, urinary tract infection Labs, imaging independently reviewed and interpreted by me. Her CBC shows a white count of 7.1 with hemoglobin of 15.2, hematocrit of 50, platelets of 157. Her comprehensive metabolic panel is generally within normal limits, slightly increased glucose at 209. Coag profile shows PT 14.8, INR 1.1, PTT of 32. Lactic acid is normal at 1.16. BNP is elevated at 1667.6. Single view chest x- ray shows a very large right-sided pleural effusion. ABG on 10 L per simple facemask shows pH of 7.28, pCO2 of 85, pO2 of 115, total CO2 is 42.5. Patient is started on BiPAP after the ABG results. She is administered gentle IV fluids, fentanyl for discomfort at 50 mcg. I discussed the case with Dr. Esparza on [facility]. Accepts the patient to the ICU, would like surgery consult for possible thoracentesis. I discussed with Dr. CURRIE. Diagnostic Imaging Diagonstic Imaging: Xray Plain Films/CT/US/NM/MRI: chest Comments single view chest reviewed and interpreted by me - large right sided pleural effusion Critical Care Note Critical Care Start Time: 03:33 Stop Time: 05:10 Total Time (minutes) 30min critical care time in the evaluation and management of this hypoxic patient time includes supplemental oxygenation with nasal cannula escalating to facemask to Vapotherm and then to BiPAP. Time includes review of the medical record, review and interpretation of labs, management of BiPAP settings, discussion with admitting provider as well as general surgery regarding pleural effusion Departure Communication (Admissions) Time/Spoke to Admitting Phy: 05:[address] Esparza - [facility] accepts admit Time/Spoke to Consulting Phy: 05:[address] Currie - General Surgery Impression Primary Impression: Pleural effusion on right Additional Impression: RESPIRATORY FAILURE, UNSP, UNSP W HYPOXIA OR HYPERCAPNIA Disposition: ADMITTED INPATIENT Condition: Critical Admissions Decision to Admit Reason: Admit from ER (General) Decision to Admit/Date: May 14, 2023 Time/Decision to Admit Time: 04:29 Departure-Patient Inst. Referrals: KARY MEHTA MD (PCP/Family) Primary Care Physician Copy Copies To 1: KARY MEHTA MD, KATHRYN M MD May 14, 2023 03:33
[2023-05-14 03:46] LABS: BASOPHILS % (AUTO) 0 % (0-10); EOSINOPHILS % (AUTO) 1 % (0-10); HEMATOCRIT 50 % (35-52); HEMOGLOBIN 15.2 g/dL (11.5-16.0); LYMPHOCYTES # (AUTO) 0.9 10^3/uL (1.0-4.0); LYMPHOCYTES % (AUTO) 12 % (12-44); MEAN CORPUSCULAR HEMOGLOBIN 31 pg (25-34); MEAN CORPUSCULAR HGB CONC 31 g/dL (32-36); MEAN CORPUSCULAR VOLUME 103 fL (80-99); MEAN PLATELET VOLUME 10.9 fL (9.0-12.2); MONOCYTES # (AUTO) 0.8 10^3/uL (0.0-1.0); MONOCYTES % (AUTO) 11 % (0-12); NEUTROPHILS # (AUTO) 5.4 10^3/uL (1.8-7.8); NEUTROPHILS % (AUTO) 75 % (42-75); PLATELET COUNT 157 10^3/uL (130-400); WHITE BLOOD COUNT 7.1 10^3/uL (4.3-11.0)
[2023-05-14 03:51] LABS: INR 1.1 (0.8-1.4); PROTHROMBIN TIME PATIENT 14.8 SEC (12.2-14.7)
[2023-05-14 03:59] LABS: ALBUMIN 2.8 GM/DL (3.2-4.5); POTASSIUM 4.1 MMOL/L (3.6-5.0)
[2023-05-14 04:02] LABS: TOTAL PROTEIN 5.6 GM/DL (6.4-8.2)
[2023-05-14 04:05] LABS: CREATININE SERUM 0.81 MG/DL (0.60-1.30)
[2023-05-14 04:25] LABS: ABG BASE EXCESS 9.6 MMOL/L (-2.5-2.5); ABG OXYGEN SATURATION 97 % (94-100); ABG PO2 115 MMHG (79-93)
[2023-05-14 04:26] LABS: INSPIRED O2 10L; VENTILATOR NO
[2023-05-14 04:27] LABS: ABG PCO2 85 MMHG (35-45); ABG PH 7.28 (7.37-7.43); ABG TCO2 42.5 MMOL/L (21.0-31.0)
[2023-05-14] MEDS ORDERED: fentaNYL INJECTION 100 MCG/2 ML VIAL IVP ONE (05:30)
--- NOTE | 2023-05-14 06:22 | Tele-ICU Progress Note ---
Subjective Date Seen by a Provider: May 14, 2023 Subjective/Events-last exam This virtual visit was conducted using real time audio/video. Thank you for asking us to see this patient for respiratory insufficiency due to AECOPD/CHF Recent events:Sats 60% in ambulance. PMH: CAD/stents, DM, HL, HTN, COPD on 3 LPM home O2. PE: VSS. O2 sat 98% on 10 L HEENT: No obvious masses, adenopathy or JVD. Chest: clear to auscultation L , diminished R CV: RRR S1 S2 No murmur or added sounds. Abd: Non-tender. Bowel sounds Y. : Unremarkable. [employer]. [employer]/psychiatric: Grossly intact. No obvious focal findings. Extremities: No edema. Capillary refill < 3 seconds. Skin: unremarkable. Results: Elevated BNP 1667.6, BG 209. AB.28/85/115 on 10 mLPM.. CXR: Congested with R pleural effusion.. Available chart/ vitals / labs / images reviewed. Video assessment done using teleICU camera, rest of exam as per RN. A/P: Respiratory insufficiency: Continue present management with O@, PRN VT/BiPAP Monitor for increasing oxygenation needs and/or need for intubation. Critical Care: critically ill patient. Would start Lasix and consider possible thoracentesis if no response to Lasix. Discussed with RN Lucie. Asked RN to reach out to eICU if any questions or concerns later. Time spent with patient/coordination of care with other health professionals (mins): 25 Sepsis Event Evaluation Height, Weight, BMI Height: 5'4.00" Weight: 230lbs. 0.0oz. 104.243817cg; 39.00 BMI Method:Stated Focused Exam Lactate Level 05/14/23 04:00: Lactic Acid Level 1.16 Lactic Acid Level Laboratory Tests Test 05/14/23 04:00 Lactic Acid Level 1.16 MMOL/L (0.50-2.00) Exam Exam Patient acknowledged, consented, and participated in this virtual visit which was conducted using real time audio/video Vital Signs Date Time Temp Pulse Resp B/P (MAP) Pulse Ox O2 Delivery O2 Flow Rate FiO2 05/14/23 05:47 68 98 50.00 05/14/23 05:44 36.7 61 10 142/87 94 NIV Bilevel 60.00 11/30/23 04:36 95 Vapotherm 25.00 60 05/14/23 03:05 Nasal Cannula 3.00 05/14/23 03:05 36.6 70 18 121/82 (95) 92 Nasal Cannula 3.00 Height & Weight Height: 5'4.00" Weight: 230lbs. 0.0oz. 104.804353tj; 39.00 BMI Method:Stated General Appearance: Chronically ill, Moderate Distress, Obese HEENT: Other (chemosis bilaterally) Respiratory: Decreased Breath Sounds (on the right; clear on the left), Other (labored breathing; clear on the left) Cardiovascular: Regular Rate, Rhythm Capillary Refill: Less Than 3 Seconds Extremity: No Pedal Edema Neurologic/Psychiatric: Alert, Normal Mood/Affect Skin: Warm/Dry, Pallor Results Lab Laboratory Tests 05/14/23 03:09 Assessment/Plan Assessment/Plan See free text. Critical Care: Critically Ill Patient GINO SCHRADER MD May 14, 2023 06:22
[2023-05-14] MEDS ORDERED: LACTULOSE SYRUP 10GM/15ML 30ML UDC PO PRN (06:30)
[2023-05-14] MEDS ORDERED: LORazepam 0.5 MG TABLET PO PRN (06:30)
[2023-05-14] MEDS ORDERED: diphenhydrAMINE INJ 50 MG/ML VIAL IVP PRN (06:30)
[2023-05-14] MEDS ORDERED: diphenhydrAMINE 25 MG TABLET PO PRN (06:30)
[2023-05-14] MEDS ORDERED: MELATONIN 3 MG TABLET PO PRN (06:30)
[2023-05-14] MEDS ORDERED: DexMEDEtomidine 1,000mcg/250ml 250 ML IV SCH (06:30)
[2023-05-14] MEDS ORDERED: ONDANSETRON 4 MG ORAL DISSOLVE TABLET PO PRN (06:30)
[2023-05-14] MEDS ORDERED: MILK OF MAGNESIA 400 MG/5 ML 30 ML UDC PO PRN (06:30)
[2023-05-14] MEDS ORDERED: ACETAMINOPHEN 325 MG TABLET PO PRN (06:30)
[2023-05-14] MEDS ORDERED: oxyCODONE IMMEDIATE RELEASE 5 MG TABLET PO PRN (06:30)
[2023-05-14] MEDS ORDERED: ONDANSETRON INJECTION 4 MG/2 ML (SDV) IV PRN (06:30)
[2023-05-14] MEDS ORDERED: NS IV 500 ML 500 ML IV PRN (06:30)
[2023-05-14] MEDS ORDERED: HYDROmorphone INJECTION 2 MG/ML VIAL IV PRN (06:30)
[2023-05-14] MEDS ORDERED: ANTACID SUSPENSION 30 ML UDC PO PRN (06:30)
[2023-05-14] MEDS ORDERED: BISACODYL 10 MG SUPPOSITORY PR PRN (06:30)
[2023-05-14] MEDS ORDERED: CALCIUM CARBONATE 500 MG CHEW TABLET PO PRN (06:30)
--- NOTE | 2023-05-14 06:55 | Diagnostic Imaging Report ---
EXAM: CHEST 1 VIEW, AP/PA ONLY INDICATION: Hypoxia. COMPARISON: 07/03/2019. FINDINGS: Cardiomegaly with pulmonary vascular congestion. Large right pleural effusion. No pneumothorax. No acute osseous findings. IMPRESSION: Cardiomegaly with pulmonary vascular congestion and large right pleural effusion. Dictated by: Dictated on workstation # [id number]
[2023-05-14] MEDS ORDERED: FUROSEMIDE INJECTION 40 MG/4 ML VIAL IVP ONE (08:30)
[2023-05-14] MEDS: ENOXAPARIN 40 MG/0.4 ML SYRINGE SC SCH (08:41)
[2023-05-14] MEDS: SENNOSIDES 8.6 MG TABLET PO SCH ×2 (09:00→21:10)
[2023-05-14] MEDS: DOCUSATE SODIUM 100 MG CAPSULE PO SCH ×2 (09:00→21:10)
[2023-05-14 09:25] LABS: BILIRUBIN,URINE 1+ (NEGATIVE); CLARITY,URINE CLEAR; COLOR,URINE ORANGE; GLUCOSE, URINE (UA) NEGATIVE (NEGATIVE); KETONES,URINE NEGATIVE (NEGATIVE); LEUKOCYTE ESTERASE ,URINE NEGATIVE (NEGATIVE); NITRITE,URINE NEGATIVE (NEGATIVE); PH,URINE 5.5 (5-9); PROTEIN,URINE 2+ (NEGATIVE)
[2023-05-14 09:27] LABS: BACTERIA,URINE TRACE /HPF; RBC,URINE TNTC /HPF; WBC,URINE RARE /HPF
[2023-05-14 09:28] LABS: AMORPHOUS SEDIMENT,UR RARE AMOR URATES /LPF
[2023-05-14] MEDS: RT-Ipratropium/Albuterol NEB 3 ML VIAL INH SCH ×4 (10:59→22:54)
[2023-05-14] MEDS: inSUlin ASPART 1 UNIT/0.01 ML (PER UNIT) SC SCH ×3 (11:00→21:01)
[2023-05-14] MEDS ORDERED: DEXTROSE 50% 50 ML (IMS) SYR ONE ×2 (11:31→12:03)
[2023-05-14] MEDS ORDERED: NS (IVPB) 250 ML 250 ML IV ONE (11:45)
[2023-05-14] MEDS ORDERED: D5 NS 1,000 ML IV SOLN 1,000 ML IV SCH (11:45)
[2023-05-14] MEDS ORDERED: RT-Ipratropium/Albuterol NEB 3 ML VIAL INH PRN (12:00)
[2023-05-14] MEDS ORDERED: DEXTROSE 50% 50 ML (IMS) SYR IV NR (12:15)
[2023-05-14] MEDS ORDERED: DEXTROSE 50% 50 ML (IMS) SYR IV ONE (12:15)
[2023-05-14 12:47] LABS: ABG PO2 81 MMHG (79-93)
[2023-05-14 12:48] LABS: ABG BASE EXCESS 9.4 MMOL/L (-2.5-2.5); ABG OXYGEN SATURATION 97 % (94-100)
[2023-05-14 12:50] LABS: ABG PCO2 72 MMHG (35-45); ABG PH 7.34 (7.37-7.43)
--- NOTE | 2023-05-14 13:00 | History & Physical ---
ELA LOPEZ 05/14/23 1300: History of Present Illness History of Present Illness Reason for visit/HPI Sasha is an 82 yo F with a PMH of CAD, HTN, oxygen-dependent COPD, and IDDM amongst other chronic health conditions who presented to the ED at 3AM this morning with compalints of generalized weakness, upper airway congestion and "feeling sick" x 1 week. She also reported having recorded oxygen saturations around the 80s on 3L of supplemental oxygen at home. In the ED, she was found to have hypoxia ultimately requiring BiPAP and large right pleural effusion on CXR. She was admitted for management of acute hypoxic respiratory failure and right- sided pleural effusion. This morning, she is solmnolent due to sedation on Precedex. Her friend, present at bedside, answers questions on her behalf. Her friend confirms that she is oxygen dependent at home but is unsure of the amount. She states the patient has no history of cigarettes use. She is unsure if the patient has ever been diagnosed with heart failure or takes diuretics. She states that the patient's , who is more familiar with the patient's medical history, will arrive later n the morning. Date of Admission May 14, 2023 at 05:47 Date Seen by a Provider: May 14, 2023 Time Seen by a Provider: 11:00 I consulted on this patient on 05/14/23 12:55 Attending Physician Shanthi Clay MD Admitting Physician Admitting Physician: Jacqueline Esparza DO Attending Physician: Jacqueline Esparza DO Consult Allergies and Home Medications Allergies Coded Allergies: Sulfa (Sulfonamide Antibiotics) (Unverified Allergy, Unknown, HIVES, SOB, 10/27/06) morphine (Unverified Allergy, Unknown, Pt has received Lortab in the pas, 07/05/19) propoxyphene (Unverified Allergy, Unknown, UNKNOWN, 10/27/06) erythromycin base (Unverified Adverse Reaction, Unknown, SICK TO HER STOMACH, CRAMPS, VOMITING, 10/27/06) Patient Home Medication List Duloxetine HCl (Duloxetine HCl) 30 Mg Capsule., 30 MG PO DAILY, (Reported) Entered as Reported by: GERBER CAR on 05/14/23 4327 Last Action: Reviewed Famotidine (Famotidine) 20 Mg Tablet, 40 MG PO BID, (Reported) Entered as Reported by: GERBER CAR on 05/14/23 135 Last Action: Reviewed Fexofenadine HCl (Fexofenadine HCl) 180 Mg Tablet, 180 MG PO DAILY, (Reported) Entered as Reported by: GERBER CAR on 05/14/23 1204 Last Action: Reviewed Hydrocodone/Acetaminophen (Hydrocodone-Acetamin 10-325 mg) 10 Mg-325 Mg Tablet, 1 EA PO Q6H PRN for PAIN-MODERATE (5-7), (Reported) Entered as Reported by: GERBER CAR on 05/14/231357 Last Action: Reviewed Insulin Determir (Levemir) 100 Unit/Ml Soln, 50 UNITS SQ HS, (Reported) Entered as Reported by: BRIAN HARRISON on 07/04/19919 Last Action: Reviewed Metoprolol Succinate (Metoprolol Succinate) 25 Mg Tab.er.24h, 25 MG PO DAILY, (Reported) Entered as Reported by: GERBER CAR on 05/14/231357 Last Action: Reviewed Discontinued Medications Albuterol Sulfate (Albuterol Sulfate) 2.5 Mg/3 Ml Vial.neb, 2.5 MG IH QID PRN for SHORTNESS OF BREATH, (Reported) Discontinued Reason: No Longer Taking Entered as Reported by: SARAI SOTO on 08/03/171644 Last Action: Discontinued Albuterol Sulfate (Ventolin Hfa) 18 Gm Hfa.aer.ad, 2 PUFF INH Q4H PRN for SHORTNESS OF BREATH, (Reported) Discontinued Reason: No Longer Taking Entered as Reported by: BRIAN HARRISON on 07/04/19919 Last Action: Discontinued Amlodipine Besylate (Amlodipine Besylate) 5 Mg Tablet, 5 MG PO DAILY, (Reported) Discontinued Reason: No Longer Taking Entered as Reported by: SARAI SOTO on 08/03/171644 Last Action: Discontinued Aspirin (Adult Low Dose Aspirin EC) 81 Mg Tablet.dr, 81 MG PO DAILY, (Reported) Discontinued Reason: No Longer Taking Entered as Reported by: LORNA HEWITT on 07/23/16 5480 Last Action: Discontinued Atenolol (Atenolol) 25 Mg Tablet, 25 MG PO HS, (Reported) Discontinued Reason: No Longer Taking Entered as Reported by: KENNETH BULLARD on 04/09/19 1628 Last Action: Discontinued Cholecalciferol (Vitamin D3) (Vitamin D-3) 2,000 Unit Tablet, 2,000 UNIT PO DAILY, (Reported) Discontinued Reason: No Longer Taking Entered as Reported by: BRIAN HARRISON on 07/04/19919 Last Action: Discontinued Diphenhydramine HCl (Banophen) 25 Mg Capsule, 50 MG PO HS, (Reported) Discontinued Reason: No Longer Taking Entered as Reported by: BRIAN HARRISON on 07/04/19919 Last Action: Discontinued Doxycycline Hyclate (Doxycycline Hyclate) 100 Mg Tablet, 100 MG PO BID Discontinued Reason: No Longer Taking Prescribed by: MAHOGANY SANTAMARIA on 08/30/21 184 Last Action: Discontinued Furosemide (Furosemide) 20 Mg Tablet, 20 MG PO DAILY, (Reported) Discontinued Reason: No Longer Taking Entered as Reported by: SARAI SOTO on 08/03/17 164 Last Action: Discontinued Hydrochlorothiazide (Hydrochlorothiazide) 25 Mg Tablet, 25 MG PO HS, (Reported) Discontinued Reason: No Longer Taking Entered as Reported by: MICHELLE NUGENT on 05/14/152142 Last Action: Discontinued Hydrocodone Bit/Acetaminophen (HYDROcodone/APAP 10/325 TABLET) 1 Each Tablet, 1 TAB PO Q6H PRN for PAIN-MODERATE, (Reported) Discontinued Reason: No Longer Taking Entered as Reported by: SARAI SOTO on 08/03/17 164 Last Action: Discontinued Insulin Aspart (Novolog) 100 Unit/1 Ml Susp, 20 UNIT SQ DAILY, (Reported) Discontinued Reason: No Longer Taking Entered as Reported by: KENNETH BULLARD on 04/09/19 1636 Last Action: Discontinued Insulin Determir (Levemir) 1,000 Units/10 Ml Soln, 10 UNITS SC DAILY, (Reported) Discontinued Reason: No Longer Taking Entered as Reported by: BRIAN HARRISON on 07/04/19919 Last Action: Discontinued Losartan Potassium (Losartan Potassium) 25 Mg Tablet, 25 MG PO DAILY, (Reported) Discontinued Reason: No Longer Taking Entered as Reported by: LORNA HEWITT on 07/23/16 2379 Last Action: Discontinued Meclizine HCl (Meclizine HCl) 25 Mg Tablet, 25 MG PO TID PRN for DIZZINESS Discontinued Reason: No Longer Taking Prescribed by: BONITA NEGRON on 01/16/201249 Last Action: Discontinued Miconazole Nitrate (Lotrimin AF) 90 Gm Powder, 0 GM TOP BID Discontinued Reason: No Longer Taking Prescribed by: JACQUELINE ESPARZA on 07/18/19834 Last Action: Discontinued Nystatin (Nystatin) 15 Gm Cream..g., 0 GM TP TID Discontinued Reason: No Longer Taking Prescribed by: JACQUELINE ESPARZA on 07/18/19834 Last Action: Discontinued Ondansetron (Ondansetron Odt) 4 Mg Tab.rapdis, 4 MG PO Q6H PRN for NAUSEA/VOMITING Discontinued Reason: No Longer Taking Prescribed by: BONITA NEGRON on 01/16/201249 Last Action: Discontinued Pantoprazole Sodium (Pantoprazole Sodium) 40 Mg Tablet.dr, 40 MG PO DAILY, (Re ported) Discontinued Reason: No Longer Taking Entered as Reported by: KENNETH BULLARD on 04/09/19 162 Last Action: Discontinued Prednisone (Prednisone) 10 Mg Tab.ds.pk, 10 MG PO DAILY Discontinued Reason: No Longer Taking Prescribed by: JACQUELINE ESPARZA on 07/18/19834 Last Action: Discontinued Promethazine HCl/Codeine (Prometh-Codein 6.25-10 mg/5 ml) 5 Ml Syrup, 5-10 ML PO Q6H PRN for COUGH, (Reported) Discontinued Reason: No Longer Taking Entered as Reported by: BRIAN HARRISON on 07/04/19919 Last Action: Discontinued Ranolazine (Ranolazine ER) 1,000 Mg Tab.er.12h, 1,000 MG PO BID, (Reported) Discontinued Reason: No Longer Taking Entered as Reported by: BRIAN HARRISON on 07/04/19919 Last Action: Discontinued Rosuvastatin Calcium (Rosuvastatin Calcium) 10 Mg Tablet, 10 MG PO HS, (Reported) Discontinued Reason: No Longer Taking Entered as Reported by: SARAI SOTO on 08/03/171644 Last Action: Discontinued Spironolactone (Spironolactone) 25 Mg Tablet, 25 MG PO DAILY, (Reported) Discontinued Reason: No Longer Taking Entered as Reported by: SARAI SOTO on 08/03/171644 Last Action: Discontinued Past Esawexs-Jzaxzm-Dlhitr Hx Patient Social History Tobacco Use?: No Use of E-Cig and/or Vaping dev: No Substance use?: No Alcohol Use?: No Pt feels they are or have been: No Immunizations Up To Date Date of Influenza Vaccine: Apr 12, 2019 First/Initial COVID19 Vaccinat: 07/24/20 Second COVID19 Vaccination Jose: 08/21/20 Tetanus Booster (TDap): Unknown PED Vaccines UTD: Yes Date of Pneumonia Vaccine: November 01, 2008 Seasonal Allergies Seasonal Allergies: No Current Status status: No status: No Advance Directives: No Communicates: Verbally Primary Language: Egyptian Preferred Spoken Language: Egyptian Is interpretation needed?: No Implanted or Applied Medical D: BiPAP, Stents Past Medical History Surgeries: Adenoidectomy, Appendectomy, Cardiac, Eye Surgery, Gallbladder, Hysterectomy, Oophorectomy, Orthopedic, Tonsillectomy Asthma, COPD Coronary Artery Disease, High Cholesterol, Hypertension Neuropathy [employer] History: Hysterectomy Hepatitis, Ulcer Degenerate Disk Disease, Arthritis, Back Injury, Chronic Back Pain Diabetes, Insulin dep Cataract Loss of Vision: Denies Hearing Impairment: Denies Uterine Did You Recieve Any Treatments: Yes What Type of Treatment Did You: Surgical Intervention Blood Disorders: No Family Medical History Patient reports no known family medical history. No Pertinent Family Hx PAST SURGICAL HISTORY: -HYSTERECTOMY/BILATERAL SALPINGO-OOPORECTOMY FOR ENDOMETRIAL CANCER -CHOLECYSTECTOMY -APPENDECTOMY -TONSILLECTOMY/ADENOIDECTOMY Review of Systems ROS-Unable to Obtain: Unable to obtain due to somnolence under sedation Physical Exam Vital Signs Vital Signs - First Documented 05/14/23 04:36 FiO2 60 Capillary Refill : Less Than 3 Seconds Height, Weight, BMI Height: 5'4.00" Weight: 230lbs. 0.0oz. [id number]; 44.48 BMI Method:Stated General Appearance: Other (lethargic and difficult to arouse on BiPAP ) Respiratory: No Accessory Muscle Use (right sided ), Decreased Breath Sounds (right sided) Cardiovascular: Regular Rate, Rhythm Extremity: Other (right arm lymphadenopathy ) Skin: Warm/Dry (hyperpigmented patches throughout left arm and left chest ), Other Assessment/Plan Assessment and Plan Acute on chronic respiratory failure with hypercapnia Respiratory acidosis with metabolic alkalosis Oxygen-dependent COPD - Eiology unclear: AECOPD, undiagnosed LISHA or CHF, or pleural effusion possibly contributing - BMI 44.5. Evidence of pulmonary HTN on 2016 Echo. - Amount/frequency of baseline oxygen use unclear - 05/14 AB.28, 85, 115. Repeat: 7.34, 72, 81. - Currently on BiPAP with oxygen flow rate of 40.00 - Continue supportive care Right-sided pleural effusion, large - Concerns for malignancy. Undiagnosed CHF also possible. PNA less likely. - Exam significant for right arm lymphadenopathy - 2016 Echo "technically difficult" showing normal EF, PAP of 40 - No evidence of PNA on CXR. WBC normal. - Surgery consulted for thoracentesis - Cardiology consulted for Echo - Continue Lasix 20 mg Hypoglycemia - resolved - Darryl of 13 at 1130 hrs on 05/14 - S/P emergency D50W 50 IV x 2 - Continue to monitor closely Insulin-dependent diabetes - Sliding scale 'A" ordered; holding currently Admission Diagnosis Acute on chronic respiratory failure Right-sided pleural effusion Admission Status: Inpatient Order (span 2 midnights) Reason for Inpatient Admission: Acute on chronic respiratory failure Right-sided pleural effusion JACQUELINE ESPARZA DO 05/15/23 0410: History of Present Illness History of Present Illness Reason for visit/HPI Chief complaint: Acute on chronic respiratory failure with altered mental status due to CO2 narcosis HPI: This is an 82-year-old female clinic patient of Dr. Clay who has a past medical history of uterine cancer status post complete hysterectomy and chronic respiratory failure on 3 L at home and super morbid obesity who presented to the ER with altered mental status and weakness found to have abnormal ABG with evidence of CO2 narcosis requiring BiPAP. She was found to have consistent hypoglycemia requiring D50 amps so I have transition to D10 drip. All findings are consistent with likely uterine cancer with widespread metastasis causing ascites and right-sided pleural effusion consulted Dr. Tariq for thoracentesis and paracentesis. Patient interested in full code and intubation if necessary. I did update will by phone as I was gathering all the data. Their daughter is a psychiatrist in [place] and I will talk to her tomorrow at the bedside. Allergies and Home Medications Allergies Coded Allergies: Sulfa (Sulfonamide Antibiotics) (Unverified Allergy, Unknown, HIVES, SOB, 10/27/06) morphine (Unverified Allergy, Unknown, Pt has received Lortab in the pas, 07/05/19) propoxyphene (Unverified Allergy, Unknown, UNKNOWN, 10/27/06) erythromycin base (Unverified Adverse Reaction, Unknown, SICK TO HER STOMACH, CRAMPS, VOMITING, 10/27/06) Patient Home Medication List Home Medication List Reviewed: Yes Duloxetine HCl (Duloxetine HCl) 30 Mg Capsule.dr, 30 MG PO DAILY, (Reported) Entered as Reported by: GERBER CAR on 05/14/231357 Last Action: Reviewed Famotidine (Famotidine) 20 Mg Tablet, 40 MG PO BID, (Reported) Entered as Reported by: GERBER CAR on 05/14/231357 Last Action: Reviewed Fexofenadine HCl (Fexofenadine HCl) 180 Mg Tablet, 180 MG PO DAILY, (Reported) Entered as Reported by: GERBER CAR on 05/14/23 376 Last Action: Reviewed Hydrocodone/Acetaminophen (Hydrocodone-Acetamin 10-325 mg) 10 Mg-325 Mg Tablet, 1 EA PO Q6H PRN for PAIN-MODERATE (5-7), (Reported) Entered as Reported by: GERBER CAR on 05/14/231357 Last Action: Reviewed Insulin Determir (Levemir) 100 Unit/Ml Soln, 50 UNITS SQ HS, (Reported) Entered as Reported by: BRIAN HARRISON on 07/04/19919 Last Action: Reviewed Metoprolol Succinate (Metoprolol Succinate) 25 Mg Tab.er.24h, 25 MG PO DAILY, (Reported) Entered as Reported by: GERBER CAR on 05/14/231357 Last Action: Reviewed Discontinued Medications Albuterol Sulfate (Albuterol Sulfate) 2.5 Mg/3 Ml Vial.neb, 2.5 MG IH QID PRN for SHORTNESS OF BREATH, (Reported) Discontinued Reason: No Longer Taking Entered as Reported by: SARAI SOTO on 08/03/17 7325 Last Action: Discontinued Albuterol Sulfate (Ventolin Hfa) 18 Gm Hfa.aer.ad, 2 PUFF INH Q4H PRN for SH ORTNESS OF BREATH, (Reported) Discontinued Reason: No Longer Taking Entered as Reported by: BRIAN HARRISON on 07/04/19919 Last Action: Discontinued Amlodipine Besylate (Amlodipine Besylate) 5 Mg Tablet, 5 MG PO DAILY, (Reported) Discontinued Reason: No Longer Taking Entered as Reported by: SARAI SOTO on 08/03/171644 Last Action: Discontinued Aspirin (Adult Low Dose Aspirin EC) 81 Mg Tablet.dr, 81 MG PO DAILY, (Reported) Discontinued Reason: No Longer Taking Entered as Reported by: LORNA HEWITT on 07/23/16 4159 Last Action: Discontinued Atenolol (Atenolol) 25 Mg Tablet, 25 MG PO HS, (Reported) Discontinued Reason: No Longer Taking Entered as Reported by: KENNETH BULLARD on 04/09/19 162 Last Action: Discontinued Cholecalciferol (Vitamin D3) (Vitamin D-3) 2,000 Unit Tablet, 2,000 UNIT PO DAILY, (Reported) Discontinued Reason: No Longer Taking Entered as Reported by: BRIAN HARRISON on 07/04/19919 Last Action: Discontinued Diphenhydramine HCl (Banophen) 25 Mg Capsule, 50 MG PO HS, (Reported) Discontinued Reason: No Longer Taking Entered as Reported by: BRIAN HARRISON on 07/04/19919 Last Action: Discontinued Doxycycline Hyclate (Doxycycline Hyclate) 100 Mg Tablet, 100 MG PO BID Discontinued Reason: No Longer Taking Prescribed by: MAHOGANY SANTAMARIA on 08/30/21 184 Last Action: Discontinued Furosemide (Furosemide) 20 Mg Tablet, 20 MG PO DAILY, (Reported) Discontinued Reason: No Longer Taking Entered as Reported by: SARAI SOTO on 08/03/171644 Last Action: Discontinued Hydrochlorothiazide (Hydrochlorothiazide) 25 Mg Tablet, 25 MG PO HS, (Reported) Discontinued Reason: No Longer Taking Entered as Reported by: MICHELLE NUGENT on 05/14/152142 Last Action: Discontinued Hydrocodone Bit/Acetaminophen (HYDROcodone/APAP 10/325 TABLET) 1 Each Tablet, 1 TAB PO Q6H PRN for PAIN-MODERATE, (Reported) Discontinued Reason: No Longer Taking Entered as Reported by: SARAI SOTO on 08/03/171644 Last Action: Discontinued Insulin Aspart (Novolog) 100 Unit/1 Ml Susp, 20 UNIT SQ DAILY, (Reported) Discontinued Reason: No Longer Taking Entered as Reported by: KENNETH BULLARD on 04/09/19 1636 Last Action: Discontinued Insulin Determir (Levemir) 1,000 Units/10 Ml Soln, 10 UNITS SC DAILY, (Reported) Discontinued Reason: No Longer Taking Entered as Reported by: BRIAN HARRISON on 07/04/19919 Last Action: Discontinued Losartan Potassium (Losartan Potassium) 25 Mg Tablet, 25 MG PO DAILY, (Reported) Discontinued Reason: No Longer Taking Entered as Reported by: LORNA HEWITT on 07/23/16 0759 Last Action: Discontinued Meclizine HCl (Meclizine HCl) 25 Mg Tablet, 25 MG PO TID PRN for DIZZINESS Discontinued Reason: No Longer Taking Prescribed by: BONITA NEGRON on 01/16/201249 Last Action: Discontinued Miconazole Nitrate (Lotrimin AF) 90 Gm Powder, 0 GM TOP BID Discontinued Reason: No Longer Taking Prescribed by: JACQUELINE ESPARZA on 07/18/19834 Last Action: Discontinued Nystatin (Nystatin) 15 Gm Cream..g., 0 GM TP TID Discontinued Reason: No Longer Taking Prescribed by: JACQUELINE ESPARZA on 07/18/19834 Last Action: Discontinued Ondansetron (Ondansetron Odt) 4 Mg Tab.rapdis, 4 MG PO Q6H PRN for NAUSEA/VOMITING Discontinued Reason: No Longer Taking Prescribed by: BONITA NEGRON on 01/16/201249 Last Action: Discontinued Pantoprazole Sodium (Pantoprazole Sodium) 40 Mg Tablet.dr, 40 MG PO DAILY, (Reported) Discontinued Reason: No Longer Taking Entered as Reported by: KENNETH BULLARD on 04/09/19 6458 Last Action: Discontinued Prednisone (Prednisone) 10 Mg Tab.ds.pk, 10 MG PO DAILY Discontinued Reason: No Longer Taking Prescribed by: JACQUELINE ESPARZA on 07/18/19834 Last Action: Discontinued Promethazine HCl/Codeine (Prometh-Codein 6.25-10 mg/5 ml) 5 Ml Syrup, 5-10 ML PO Q6H PRN for COUGH, (Reported) Discontinued Reason: No Longer Taking Entered as Reported by: BRIAN HARRISON on 07/04/19919 Last Action: Discontinued Ranolazine (Ranolazine ER) 1,000 Mg Tab.er.12h, 1,000 MG PO BID, (Reported) Discontinued Reason: No Longer Taking Entered as Reported by: BRIAN HARRISON on 07/04/19919 Last Action: Discontinued Rosuvastatin Calcium (Rosuvastatin Calcium) 10 Mg Tablet, 10 MG PO HS, (Reported) Discontinued Reason: No Longer Taking Entered as Reported by: SARAI SOTO on 08/03/171644 Last Action: Discontinued Spironolactone (Spironolactone) 25 Mg Tablet, 25 MG PO DAILY, (Reported) Discontinued Reason: No Longer Taking Entered as Reported by: SARAI SOTO on 08/03/171644 Last Action: Discontinued Past Xfjpebj-Kpymvf-Klqgex Hx Patient Social History Marrital Status: Employed/Student: retired Smoking Status: Unknown if Ever Smoked Past Medical History Surgeries: Hysterectomy Sleep Apnea, COPD Currently Using CPAP: No Currently Using BIPAP: No High Cholesterol, Hypertension Family Medical History Patient reports no known family medical history. Review of Systems Constitutional: see HPI Physical Exam General Appearance: Chronically ill, Obese, Other (lethargic and difficult to arouse on BiPAP ) Respiratory: No Accessory Muscle Use (right sided ), No Respiratory Distress, Decreased Breath Sounds (right sided) Cardiovascular: Regular Rate, Rhythm Neurologic/Psychiatric: Alert, Disoriented Assessment/Plan Assessment and Plan Acute on chronic respiratory failure with hypercapnic induced CO2 narcosis requiring BiPAP and Precedex in ICU Right-sided pleural effusion with ascites all new onset with history of uterine cancer presumed cancer metastasis with malignant ascites and effusion Super morbid obesity likely obesity hypoventilation syndrome Plan: ICU Precedex BiPAP Thoracentesis and paracentesis Will update family tomorrow Problems: (1) Hypercapnia (2) Pleural effusion on right Status: Acute Admission Diagnosis Admission Status: Inpatient Order (span 2 midnights) Reason for Inpatient Admission: Respiratory failure Supervisory-Addendum Brief Verification & Attestation Participated in pt care: history, MDM, physical Personally performed: exam, history, MDM, supervision of care Care discussed with: Medical Student Procedures: n/a Results interpretation: Verified all documentation I personally performed the loo portions of the visit, discussed case with re sident and concur with resident documentation of history, physical exam, assessment and treatment plan unless otherwise noted. ELA LOPEZ May 14, 2023 13:00 JACQUELINE ESPARZA DO May 15, 2023 04:10
--- NOTE | 2023-05-14 13:31 | Tele-ICU Consult ---
History of Present Illness History of Present Illness Date Seen by Provider: May 14, 2023 Time Seen by Provider: 13:29 Date of Admission tita-ICU Physician , consultation as per request of PCP Service provided via interactive audio and video tele[employer] E-CARE system to a patient admitted to ICU bed in [facility]. Available chart/ vitals / labs / Images reviewed H&P is from ER notes Patient's information available about PMH, Shx, Fhx allergy reviewed in EMR. ROS as per chart and RN report HPI: 82 y/o F who presented to ED with generalized weakness. found to be in 80s on bsln 3L at home admitted for possible COPD exacerbation. ABG in ED with sigfnificant hypercapnia, pCO2 of 85. Started on BIPAP PMH: CAD/stents, DM, HL, HTN, COPD on 3 LPM home O2. PE: VSS. O2 sat 98% on 10 L HEENT: No obvious masses, adenopathy or JVD. Chest: clear to auscultation L , diminished R CV: RRR S1 S2 No murmur or added sounds. Abd: Non-tender. Bowel sounds Y. : Unremarkable. Red N. [employer]/psychiatric: Grossly intact. No obvious focal findings. Extremities: No edema. Capillary refill < 3 seconds. Skin: unremarkable. Labs: Elevated BNP 1667.6, BG 209. AB.28/85/115 on 10 mLPM.. CXR: Congested with R pleural effusion.. Available chart/ vitals / labs / images reviewed. Video assessment done using teleICU camera, rest of exam as per RN. A/P: Acute on chronic hypercapnic respiratory failure: pH 7.28 and pCO2 85 on admission -Will cont on BiPAP and repeat ABG. -Will give IV Lasix given bilateral congestion on CXR -Ordered duonebs -Cultures ordered -Cont to monitor for increasing oxygenation needs and/or need for intubation. HTN: Restarted Losartan Chronic pain: Oxycodone prn pain Lines : periph , (Central Line Necessity Reviewed) Red: Nutrition: HH diet VTE Prophylaxis: jericho 40 bid Stress Ulcer Prophylaxis: n/a Plans in collaboration with bedside consultants and IM MDs. Discussed with RN to reach out if any questions or concerns A total of 25 minutes of CC time was devoted to this patient today, required to treat and/or prevent further deterioration of critical care condition ( as above ) Allergies and Home Medications Allergies Coded Allergies: Sulfa (Sulfonamide Antibiotics) (Unverified Allergy, Unknown, HIVES, SOB, 10/27/06) morphine (Unverified Allergy, Unknown, Pt has received Lortab in the pas, 07/05/19) propoxyphene (Unverified Allergy, Unknown, UNKNOWN, 10/27/06) erythromycin base (Unverified Adverse Reaction, Unknown, SICK TO HER STOMACH, CRAMPS, VOMITING, 10/27/06) Home Medications Albuterol Sulfate 2.5 Mg/3 Ml Vial.neb, 2.5 MG IH QID PRN for SHORTNESS OF BREATH, (Reported) Albuterol Sulfate 18 Gm Hfa.aer.ad, 2 PUFF INH Q4H PRN for SHORTNESS OF BREATH, (Reported) Amlodipine Besylate 5 Mg Tablet, 5 MG PO DAILY, (Reported) Aspirin 81 Mg Tablet.dr, 81 MG PO DAILY, (Reported) Atenolol 25 Mg Tablet, 25 MG PO HS, (Reported) Cholecalciferol (Vitamin D3) 2,000 Unit Tablet, 2,000 UNIT PO DAILY, (Reported) Diphenhydramine HCl 25 Mg Capsule, 50 MG PO HS, (Reported) TAKES 2 (25MG) CAPSULES Doxycycline Hyclate 100 Mg Tablet, 100 MG PO BID Prescribed by: MAHOGANY SANTAMARIA on 08/30/21 184 Furosemide 20 Mg Tablet, 20 MG PO DAILY, (Reported) Hydrochlorothiazide 25 Mg Tablet, 25 MG PO HS, (Reported) Hydrocodone Bit/Acetaminophen 1 Each Tablet, 1 TAB PO Q6H PRN for PAIN-MODERATE, (Reported) Insulin Aspart 100 Unit/1 Ml Susp, 20 UNIT SQ DAILY, (Reported) Insulin Determir 1,000 Units/10 Ml Soln, 10 UNITS SC DAILY, (Reported) Insulin Determir 1,000 Units/10 Ml Soln, 15-20 UNITS SQ HS, (Reported) Losartan Potassium 25 Mg Tablet, 25 MG PO DAILY, (Reported) Meclizine HCl 25 Mg Tablet, 25 MG PO TID PRN for DIZZINESS Prescribed by: BONITA NEGRON on 01/16/20 1250 Miconazole Nitrate 90 Gm Powder, 0 GM TOP BID Prescribed by: CHELY ESPARZA on 07/18/19 0835 Nystatin 15 Gm Cream..g., 0 GM TP TID Prescribed by: CHELY ESPARZA on 07/18/19 0835 Ondansetron 4 Mg Tab.rapdis, 4 MG PO Q6H PRN for NAUSEA/VOMITING Prescribed by: BONITA NEGRON on 01/16/20 1250 Pantoprazole Sodium 40 Mg Tablet.dr, 40 MG PO DAILY, (Reported) Prednisone 10 Mg Tab.ds.pk, 10 MG PO DAILY Take 4 tabs(40mg)daily,decrease by 1 tab(10MG)daily. Prescribed by: CHELY ESPARZA on 07/18/19 0835 Promethazine HCl/Codeine 5 Ml Syrup, 5-10 ML PO Q6H PRN for COUGH, (Reported) Ranolazine 1,000 Mg Tab.er.12h, 1,000 MG PO BID, (Reported) Rosuvastatin Calcium 10 Mg Tablet, 10 MG PO HS, (Reported) Spironolactone 25 Mg Tablet, 25 MG PO DAILY, (Reported) Past Medical/Social/Family Hx Patient Social History Tobacco Use?: No Use of E-Cig and/or Vaping dev: No Substance use?: No Alcohol Use?: No Pt stated abuse/neglect: No Immunizations Up To Date Influenza Vaccine Up-to-Date: No; Not Current First/Initial COVID19 Vaccinat: 07/24/20 Second COVID19 Vaccination Jose: 08/21/20 Tetanus Booster (TDap): Unknown Date of Pneumonia Vaccine: November 01, 2008 Current Status status: No status: No Advance Directives: No Communicates: Verbally Primary Language: [place] Islander Preferred Spoken Language: [place] Is interpretation needed?: No Implanted or Applied Medical D: BiPAP, Stents Family Medical History Family Hx: PAST SURGICAL HISTORY: -HYSTERECTOMY/BILATERAL SALPINGO-OOPORECTOMY FOR ENDOMETRIAL CANCER -CHOLECYSTECTOMY -APPENDECTOMY -TONSILLECTOMY/ADENOIDECTOMY Review of Systems Constitutional: no symptoms reported, see HPI Focused Exam Lactate Level 05/14/23 04:00: Lactic Acid Level 1.16 Height, Weight, BMI Height: 5'4.00" Weight: 230lbs. 0.0oz. [id number]; 44.48 BMI Method:Stated Exam Exam Patient acknowledged, consented, and participated in this virtual visit which was conducted using real time audio/video Vital Signs Date Time Temp Pulse Resp B/P (MAP) Pulse Ox O2 Delivery O2 Flow Rate FiO2 05/14/23 12:23 68 05/14/23 12:00 35.2 05/14/23 11:13 62 21 94 40.00 05/14/23 11:00 58 116/61 (79) 98 NIV Bilevel 50.00 05/14/23 10:59 60 21 98 50.00 05/14/23 10:00 59 114/60 (78) 96 NIV Bilevel 50.00 05/14/23 09:07 36.6 70 92 32 05/14/23 09:00 63 129/101 (110) 94 NIV Bilevel 50.00 05/14/23 08:00 60 127/65 (85) 93 NIV Bilevel 50.00 05/14/23 07:35 58 05/14/23 07:00 62 149/71 (97) 95 NIV Bilevel 50.00 05/14/23 06:30 65 22 148/80 (102) 98 NIV Bilevel 50.00 05/14/23 06:20 68 05/14/23 06:15 68 18 124/94 (104) 98 NIV Bilevel 50.00 05/14/23 06:10 66 23 95 50.00 05/14/23 05:47 68 98 50.00 05/14/23 05:44 36.7 61 10 142/87 94 NIV Bilevel 60.00 05/14/23 04:36 95 Vapotherm 25.00 60 05/14/23 03:05 Nasal Cannula 3.00 05/14/23 03:05 36.6 70 18 121/82 (95) 92 Nasal Cannula 3.00 Height & Weight Height: 5'4.00" Weight: 230lbs. 0.0oz. [id number]; 44.48 BMI Method:Stated General Appearance: Other (lethargic and difficult to arouse on BiPAP ) HEENT: Other (chemosis bilaterally) Respiratory: No Accessory Muscle Use (right sided ), Decreased Breath Sounds (right sided) Cardiovascular: Regular Rate, Rhythm Capillary Refill: Less Than 3 Seconds Extremity: Other (right arm lymphadenopathy ) Neurologic/Psychiatric: Alert, Normal Mood/Affect Skin: Warm/Dry (hyperpigmented patches throughout left arm and left chest ), Other Results Lab Laboratory Tests 05/14/23 03:09 Assessment/Plan Assessment/Plan . MAYELA AYALA MD May 14, 2023 13:30
[2023-05-14] MEDS ORDERED: DULO30CA49 PO (13:58)
[2023-05-14] MEDS ORDERED: MTP25TSR PO (13:58)
[2023-05-14] MEDS ORDERED: FAMO20TA5 PO (13:58)
[2023-05-14] MEDS ORDERED: HYDR-3820 PO (13:58)
--- NOTE | 2023-05-14 13:58 | Diagnostic Imaging Report ---
HISTORY: Right pleural effusion COMPARISON: Chest x-ray from 05/14/2023. TECHNIQUE: Patient was unable to sit upright and the right chest was scanned with the patient in the left lateral decubitus position. FINDINGS/ IMPRESSION:: 1. There is a moderate right pleural effusion. Dictated by: Dictated on workstation # [id number]
[2023-05-14] MEDS ORDERED: DEXTROSE 50% 50 ML (IMS) SYR IV PRN (14:00)
[2023-05-14] MEDS ORDERED: DEXTROSE 10% IV 1,000 ML 1,000 ML IV SCH (14:45)
--- NOTE | 2023-05-14 14:52 | Diagnostic Imaging Report ---
EXAM: Limited abdominal ultrasound. DATE: May 14, 2023. COMPARISON: CT abdomen and pelvis May 14, 2015. INDICATION: 82-year-old female, right upper quadrant abdominal pain. PROCEDURE: Two-dimensional grayscale and color doppler ultrasound examination of the abdomen is performed. FINDINGS: The liver contours are not grossly nodular. There is a moderate to large volume ascites. IMPRESSION: 1. Moderate to large volume ascites. 2. The liver is incompletely imaged. The outer liver contours are not obviously nodular. Dictated by: Dictated on workstation # [id number]
[2023-05-14] MEDS ORDERED: NF-ALLE180 PO (14:54)
--- NOTE | 2023-05-14 18:00 | Consultation-Cardiology ---
HPI-Cardiology Cardiology Consultation Date of Consultation 05/14/23 Date of Admission Time Seen by Provider: 13:00 Indication: Shortness of breath HPI 82-year-old lady with history of coronary artery disease, obesity and debilitating back pain. Patient is oxygen dependent at home, has been deteriorating over the past 1 to 2 weeks. Brought by her to the emergency room due to worsening generalized weakness and respiratory failure. Patient was having hypercapnic respiratory failure and she was started on BiPAP. On my evaluation she was still on BiPAP most of the history was obtained by reviewing her record and visiting with her . She is awake able to respond. Still having generalized fatigue, has been having significant abdominal distention. Home Medications & Allergies Allergies: Coded Allergies: Sulfa (Sulfonamide Antibiotics) (Unverified Allergy, Unknown, HIVES, SOB, 10/27/06) morphine (Unverified Allergy, Unknown, Pt has received Lortab in the pas, 07/05/19) propoxyphene (Unverified Allergy, Unknown, UNKNOWN, 10/27/06) erythromycin base (Unverified Adverse Reaction, Unknown, SICK TO HER STOMACH, CRAMPS, VOMITING, 10/27/06) Home Medication List Reviewed: Yes NJG-Pwhimi-Zjlgna Hx Patient Social History Marital Status: Employed/Student: retired Former smoker/When Quit: Mar 15, 1988 Type Used: Cigarettes 2nd Hand Smoke Exposure: No Recent Hopitalizations: No Alcohol Use?: No Immunizations Up To Date Tetanus Booster (TDap): Unknown Date of Pneumonia Vaccine: November 01, 2008 Date of Influenza Vaccine: Apr 12, 2019 Past Medical History Discussed below Family Medical History Significant Family History: No Pertinent Family Hx Family History: Patient reports no known family medical history. Review of Systems-General Review of Systems Constitutional: no symptoms reported, see HPI, malaise, weakness EENTM: see HPI, no symptoms reported Respiratory: see HPI, orthopnea, short of breath Cardiovascular: see HPI; No chest pain; edema; No Hx of Intervention, No palpitations, No syncope, No vascular heart diseas, No other Gastrointestinal: no symptoms reported, see HPI Genitourinary: no symptoms reported, see HPI Musculoskeletal: no symptoms reported, see HPI Skin: no symptoms reported, see HPI Psychiatric/Neurological: No Symptoms Reported, See HPI Reviewed Test Results Reviewed Test Results Lab Laboratory Tests Test 05/14/23 03:08 05/14/23 03:09 05/14/23 04:00 05/14/23 04:09 Range/Units Glucometer 192 H 70-110 MG/DL White Blood Count 7.1 4.3-11.0 10^3/uL Red Blood Count 4.84 3.80-5.11 10^6/uL Hemoglobin 15.2 11.5-16.0 g/dL Hematocrit 50 35-52 % Mean Corpuscular Volume 103 H 80-99 fL Mean Corpuscular Hemoglobin 31 25-34 pg Mean Corpuscular Hemoglobin Concent 31 L 32-36 g/dL Red Cell Distribution Width 13.5 10.0-14.5 % Platelet Count 157 130-400 10^3/uL Mean Platelet Volume 10.9 9.0-12.2 fL Immature Granulocyte % (Auto) 0 % Neutrophils (%) (Auto) 75 42-75 % Lymphocytes (%) (Auto) 12 12-44 % Monocytes (%) (Auto) 11 0-12 % Eosinophils (%) (Auto) 1 0-10 % Basophils (%) (Auto) 0 0-10 % Neutrophils # (Auto) 5.4 1.8-7.8 10^3/uL Lymphocytes # (Auto) 0.9 L 1.0-4.0 10^3/uL Monocytes # (Auto) 0.8 0.0-1.0 10^3/uL Eosinophils # (Auto) 0.0 0.0-0.3 10^3/uL Basophils # (Auto) 0.0 0.0-0.1 10^3/uL Immature Granulocyte # (Auto) 0.0 0.0-0.1 10^3/uL Prothrombin Time 14.8 H 12.2-14.7 SEC INR Comment 1.1 0.8-1.4 Activated Partial Thromboplast Time 32 24-35 SEC Sodium Level 140 135-145 MMOL/L Potassium Level 4.1 3.6-5.0 MMOL/L Chloride Level 100 98-107 MMOL/L Carbon Dioxide Level 31 21-32 MMOL/L Anion Gap 9 5-14 MMOL/L Blood Urea Nitrogen 15 7-18 MG/DL Creatinine 0.81 0.60-1.30 MG/DL Estimat Glomerular Filtration Rate 73 BUN/Creatinine Ratio 19 Glucose Level 209 H 70-105 MG/DL Calcium Level 8.0 L 8.5-10.1 MG/DL Corrected Calcium 9.0 8.5-10.1 MG/DL Total Bilirubin 1.0 0.1-1.0 MG/DL Aspartate Amino Transf (AST/SGOT) 23 5-34 U/L Alanine Aminotransferase (ALT/SGPT) 18 0-55 U/L Alkaline Phosphatase 81 40-136 U/L B-Type Natriuretic Peptide 1667.6 H <100.0 PG/ML Total Protein 5.6 L 6.4-8.2 GM/DL Albumin 2.8 L 3.2-4.5 GM/DL Lactic Acid Level 1.16 0.50-2.00 MMOL/L Arterial Blood pH 7.28 *L 7.37-7.43 Arterial Blood Partial Pressure CO2 85 *H 35-45 MMHG Arterial Blood Partial Pressure O2 115 H 79-93 MMHG Arterial Blood HCO3 40 H 23-27 MMOL/L Arterial Blood Total CO2 42.5 *H 21.0-31.0 MMOL/L Arterial Blood Oxygen Saturation 97 94-100 % Arterial Blood Base Excess 9.6 H -2.5-2.5 MMOL/L Blood Gas Ventilator Setting NO Blood Gas Inspired Oxygen 10L Test 05/14/23 09:00 05/14/23 11:29 05/14/23 11:50 05/14/23 11:59 Range/Units Urine Color ORANGE Urine Clarity CLEAR Urine pH 5.5 5-9 Urine Specific [place] 1.025 H 1.016-1.022 Urine Protein 2+ H NEGATIVE Urine Glucose (UA) NEGATIVE NEGATIVE Urine Ketones NEGATIVE NEGATIVE Urine Nitrite NEGATIVE NEGATIVE Urine Bilirubin 1+ H NEGATIVE Urine Urobilinogen 1.0 < = 1.0 MG/DL Urine Leukocyte Esterase NEGATIVE NEGATIVE Urine RBC (Auto) 3+ H NEGATIVE Urine RBC TNTC H /HPF Urine WBC RARE /HPF Urine Squamous Epithelial Cells 5-10 /HPF Urine Crystals PRESENT H /LPF Urine Amorphous Sediment RARE LENA URATES H /LPF Urine Bacteria TRACE /HPF Urine Casts PRESENT /LPF Urine Hyaline Casts 5-10 H /LPF Urine Mucus LARGE H /LPF Urine Culture Indicated CULTURE PENDING Glucometer 13 *L 61 L 70-110 MG/DL Ammonia 21 11-32 UMOL/L Test 05/14/23 12:28 05/14/23 12:40 05/14/23 14:15 05/14/23 14:34 Range/Units Glucometer 94 63 L 49 *L 70-110 MG/DL Arterial Blood pH 7.34 *L 7.37-7.43 Arterial Blood Partial Pressure CO2 72 *H 35-45 MMHG Arterial Blood Partial Pressure O2 81 79-93 MMHG Arterial Blood HCO3 39 H 23-27 MMOL/L Arterial Blood Total CO2 41.0 *H 21.0-31.0 MMOL/L Arterial Blood Oxygen Saturation 97 94-100 % Arterial Blood Base Excess 9.4 H -2.5-2.5 MMOL/L Blood Gas Ventilator Setting Blood Gas Inspired Oxygen Test 05/14/23 15:25 05/14/23 15:50 05/14/23 16:46 Range/Units Glucometer 93 84 108 70-110 MG/DL Physical Exam Physical Exam Vital Signs Vital Signs - First Documented 05/14/23 04:36 FiO2 60 Capillary Refill : Less Than 3 Seconds Height, Weight, BMI Height: 5'4.00" Weight: 230lbs. 0.0oz. 104.858486xq; 44.48 BMI Method:Stated General Appearance: Other (lethargic and difficult to arouse on BiPAP ) Eyes: Bilateral Eye Other (chemosis) HEENT: PERRL/EOMI, Other (chemosis bilaterally) Neck: Full Range of Motion, Normal Inspection, Non Tender, Supple, Carotid Bruit Respiratory: No Accessory Muscle Use (right sided ), Decreased Breath Sounds (right sided) Cardiovascular: Regular Rate, Rhythm Gastrointestinal: Non Tender, Soft, Other (morbid obesity) Back: Normal Inspection, No CVA Tenderness, No Vertebral Tenderness Extremity: Other (right arm lymphadenopathy ) Neurologic/Psychiatric: Alert, Normal Mood/Affect Skin: Warm/Dry (hyperpigmented patches throughout left arm and left chest ), Other Lymphatic: No Adenopathy A/P-Cardiology Admission Diagnosis Acute on chronic respiratory failure Congestive heart failure acute left ventricular systolic dysfunction and cor pulmonale Acute exacerbation of COPD Ascites Assessment/Plan Acute on chronic respiratory failure, currently on BiPAP Combination of acute exacerbation of COPD and pulmonary edema congestive heart f ailure Patient is starting on diuretics. May require thoracentesis. Congestive heart failure, acute left ventricular systolic dysfunction and cor pulmonale with severe pulmonary hypertension Pulmonary edema/pleural effusion and large ascites Starting aggressive diuresis, monitor electrolytes and renal function May require thoracentesis and paracentesis Acute exacerbation of COPD, hypercapnic respiratory failure Managed by medical team Coronary artery disease History of cardiac catheterization in 2017 with total occlusion of the mid LAD reconstructed by collaterals from the right system otherwise nonobstructive disease ejection fraction was normal at that time Patient was seen at with Dr. Contreras and attempt to revascularize the LAD was unsuccessful Conservative management was recommended History of chest pain, continue to monitor Chronic pedal edema started on aggressive diuretics History of back pain herniated disc at L2, multiple injection with debilitating back pain History of reconstructed jaw surgery. Hypertension, monitor blood pressure History of bradycardia at night, had sleep study was negative in the past, still high suspicion of underlying sleep apnea Hyperlipidemia, evaluate lipid profile Diabetes mellitus, multiple episodes of hypoglycemia Followed and managed by primary care physician BASIM MASSEY MD May 14, 2023 17:59
--- NOTE | 2023-05-14 18:16 | CONSULTATION REPORT ---
DATE OF SERVICE: 05/14/2023 ATTENDING PRIMARY CARE PHYSICIAN: Shanthi Clay M.D. ADMITTING PHYSICIAN: Jacqueline Vargas DO HISTORY OF PRESENT ILLNESS: The patient is an 82-year-old female with a significant past medical history including hypertension, hypercholesterolemia, coronary artery disease, insulin-dependent diabetes, as well as oxygen dependent COPD. She presented early this morning to the Emergency Department with generalized weakness, worsening shortness of breath as well as feeling weak and sickly for the past week. There was also a low recorded oxygen saturations in the mid-80's on 3 liters nasal cannula. The patient continued to be hypoxic and was placed on the BiPAP. Upon further investigation, she was found to have a large right pleural effusion as well as a significant amount of ascites. The patient also does have a history of endometrial cancer and is status post total hysterectomy. PAST MEDICAL HISTORY: Hypertension, hypercholesterolemia, coronary artery disease, oxygen dependent COPD, diabetes, history of endometrial cancer, peptic ulcer disease, degenerative joint disease. PAST SURGICAL HISTORY: Tonsillectomy, total hysterectomy, laparoscopic cholecystectomy, bilateral eye surgery, appendectomy, orthopedic procedures. ALLERGIES: SULFA, MORPHINE, PROPOXYPHENE, ERYTHROMYCIN. MEDICATIONS: Albuterol MDI 2 puffs q.4 hours p.r.n., albuterol nebulizer breathing treatment 2.5 mg q.i.d. p.r.n., amlodipine 5 mg daily, aspirin 81 mg daily, atenolol 25 mg daily, doxycycline 100 mg b.i.d., furosemide 20 mg daily, hydrochlorothiazide 25 mg daily, hydrocodone 10/325 p.r.n., aspartate insulin 20 units daily, detemir insulin 10 units daily, 20 units at bedtime, losartan 25 mg daily, meclizine 25 mg t.i.d. p.r.n., Zofran 4 mg q.6 hours p.r.n., Protonix 40 mg daily, prednisone 10 mg daily, ranolazine 1000 mg b.i.d., rosuvastatin 10 mg daily, spironolactone 25 mg daily. SOCIAL HISTORY: Negative smoke, negative alcohol. FAMILY HISTORY: Noncontributory. VITAL SIGNS: Temperature 36.3, blood pressure 111/69, pulse 65, respirations 22, pulse ox 95% on 50% BiPAP. REVIEW OF SYSTEMS: This is an obese and weak individual. She appears to be ventilating well with BiPAP. No known new cough or sputum production. Again, she has felt sickly in the past 1 week, however, unknown if she has had any fevers or chills. During this timeframe, she has not been eating much, but does not report any issues with nausea, no vomiting. She does not know of any issues of any diarrhea, nor constipation as well as no red blood per rectum, nor any dark tarry stools. She has also had developed some abdominal distention over the past several weeks. Skin is warm, dry. PHYSICAL EXAMINATION: CHEST: Decreased breath sounds in right chest. Scattered wheezes and rhonchi bilaterally. HEART: Regular. No murmurs. EXTREMITIES: +1/3 bilateral lower extremity edema. Negative Homans sign. HEENT: No scleral icterus. NECK: No cervical lymphadenopathy. ABDOMEN: Distended, soft with positive fluid shift wave. No palpable hernias. SKIN: Warm, dry. LABORATORY DATA: WBC 7.1, hemoglobin 15.2, hematocrit 50, platelets 157, BUN 15, creatinine 0.81. BNP 1667.6. ASSESSMENT AND PLAN: An 82-year-old female with large right pleural effusion and ascites with significant cardiac history as well as pulmonary history with oxygen dependent COPD exacerbation. The patient has also developed ascites of unknown etiology with a previous history of endometrial cancer. Due to these findings, we will proceed with diagnostic as well as therapeutic right thoracentesis as well as a paracentesis. Job ID: [id number] DocumentID: [id number] Dictated Date: 05/14/2023 17:39:08 [employer] Date: 05/14/2023 18:14:00 Dictated By: OSCAR TAVERAS MD
[2023-05-14] MEDS: FUROSEMIDE INJECTION 40 MG/4 ML VIAL IVP SCH (21:06)
[2023-05-15 02:03] VITALS: BP 122/63
[2023-05-15] MEDS: RT-Ipratropium/Albuterol NEB 3 ML VIAL INH SCH ×4 (02:03→14:31)
[2023-05-15 04:37] LABS: ABG BASE EXCESS 16.7 MMOL/L (-2.5-2.5); ABG OXYGEN SATURATION 99 % (94-100); ABG PCO2 58 MMHG (35-45); ABG PH 7.48 (7.37-7.43); ABG PO2 93 MMHG (79-93)
[2023-05-15 04:41] LABS: INSPIRED O2 80%; VENTILATOR NO
[2023-05-15 05:24] LABS: BASOPHILS % (AUTO) 0 % (0-10); HEMOGLOBIN 14.3 g/dL (11.5-16.0); MEAN PLATELET VOLUME 10.9 fL (9.0-12.2)
[2023-05-15 05:25] LABS: ALBUMIN 2.4 GM/DL (3.2-4.5); EOSINOPHILS % (AUTO) 1 % (0-10); HEMATOCRIT 45 % (35-52); LYMPHOCYTES # (AUTO) 0.7 10^3/uL (1.0-4.0); LYMPHOCYTES % (AUTO) 9 % (12-44); MEAN CORPUSCULAR HEMOGLOBIN 32 pg (25-34); MEAN CORPUSCULAR HGB CONC 32 g/dL (32-36); MEAN CORPUSCULAR VOLUME 100 fL (80-99); MONOCYTES # (AUTO) 0.9 10^3/uL (0.0-1.0); MONOCYTES % (AUTO) 12 % (0-12); NEUTROPHILS # (AUTO) 6.1 10^3/uL (1.8-7.8); NEUTROPHILS % (AUTO) 78 % (42-75); PLATELET COUNT 126 10^3/uL (130-400); POTASSIUM 4.4 MMOL/L (3.6-5.0); WHITE BLOOD COUNT 7.9 10^3/uL (4.3-11.0)
[2023-05-15 05:26] LABS: CALCIUM 7.6 MG/DL (8.5-10.1)
[2023-05-15 05:27] LABS: TOTAL PROTEIN 4.8 GM/DL (6.4-8.2)
[2023-05-15 05:29] LABS: BILIRUBIN,TOTAL 1.4 MG/DL (0.1-1.0)
[2023-05-15 05:30] LABS: PHOSPHORUS 3.6 MG/DL (2.3-4.7)
[2023-05-15 05:31] LABS: CREATININE SERUM 0.74 MG/DL (0.60-1.30)
[2023-05-15] MEDS: inSUlin ASPART 1 UNIT/0.01 ML (PER UNIT) SC SCH ×2 (05:40→11:41)
[2023-05-15] MEDS: ENOXAPARIN 40 MG/0.4 ML SYRINGE SC SCH (05:46)
[2023-05-15] MEDS ORDERED: POTASSIUM CL 10MEQ/50ML IVPB 50 ML IV SCH (06:00)
[2023-05-15] MEDS ORDERED: MAGNESIUM 1 GM/100 ML IVPB 100 ML IV SCH (06:00)
[2023-05-15] MEDS ORDERED: POTASSIUM CHLORIDE 20 MEQ TABLET PO SCH (06:00)
[2023-05-15] MEDS: FUROSEMIDE INJECTION 40 MG/4 ML VIAL IVP SCH (06:19)
[2023-05-15 07:05] VITALS: BP 126/62
[2023-05-15] MEDS: DOCUSATE SODIUM 100 MG CAPSULE PO SCH (07:59)
[2023-05-15] MEDS: SENNOSIDES 8.6 MG TABLET PO SCH (07:59)
[2023-05-15 08:10] VITALS: BP 125/69
--- NOTE | 2023-05-15 09:18 | Progress Note - Cardiology ---
Cardiology SOAP Progress Note Objective: I&O/Vital Signs 05/14/23 05/14/23 05/14/23 05/15/23 22:55 23:00 23:59 00:00 Pulse 68 70 75 Resp 24 B/P (MAP) 111/70 (84) 115/55 (75) Pulse Ox 91 92 96 91 O2 Delivery NIV Bilevel NIV Bilevel NIV Bilevel O2 Flow Rate 40.00 50.00 50.00 FiO2 40 05/15/23 05/15/23 05/15/23 05/15/23 00:08 01:00 02:00 02:03 Pulse 75 80 75 75 Resp 20 B/P (MAP) 131/71 (91) 122/63 (82) Pulse Ox 92 89 91 O2 Delivery NIV Bilevel NIV Bilevel O2 Flow Rate 50.00 60.00 60.00 05/15/23 05/15/23 05/15/23 05/15/23 02:44 02:59 03:00 04:00 Temp 36.6 Pulse 74 B/P (MAP) 118/57 (77) Pulse Ox 98 O2 Delivery NIV Bilevel NIV Bilevel NIV Bilevel O2 Flow Rate 100.00 80.00 80.00 05/15/23 05/15/23 05/15/23 05/15/23 04:00 04:00 05:00 06:00 Pulse 72 71 77 B/P (MAP) 115/55 (75) 107/55 (72) 114/59 (77) Pulse Ox 93 94 93 94 O2 Delivery NIV Bilevel NIV Bilevel NIV Bilevel NIV Bilevel O2 Flow Rate 80.00 80.00 80.00 FiO2 80 05/15/23 05/15/23 05/15/23 05/15/23 07:00 07:00 07:05 08:00 Pulse 72 71 72 81 Resp 20 B/P (MAP) 126/62 (89) 125/69 (100) Pulse Ox 96 96 92 O2 Delivery NIV Bilevel NIV Bilevel O2 Flow Rate 70.00 80.00 70.00 05/15/23 05/15/23 05/15/23 05/15/23 08:00 08:10 08:36 09:00 Temp 36.8 Pulse 81 80 Resp 20 B/P (MAP) 122/54 (86) Pulse Ox 94 93 93 O2 Delivery NIV Bilevel NIV Bilevel O2 Flow Rate 70.00 70.00 FiO2 80 05/15/23 05/15/23 05/15/23 09:23 09:36 09:40 Pulse 80 Resp 21 B/P (MAP) Pulse Ox 91 96 O2 Delivery NIV Bilevel O2 Flow Rate 70.00 60.00 60.00 05/14/23 23:59 Intake Total 550 ml Output Total 1550 ml Balance -1000 ml Weight (Pounds): 230 Weight (Ounces): 0.0 Weight (Calculated Kilograms): [phone] Constitutional: other (On Bi-pap; drowsy) Respiratory: No accessory muscle use, No respiratory distress; other (diminished breath sounds RLL) Cardiovascular: regular rate-rhythm, S1 and S2 Gastrointestional: distended; No guarding Extremities: other (right arm lymphadenopathy) Neurologic/Psychiatric: other (moves extremities) Skin: No rash on exposed areas, No ulcerations on exposed areas; other (hyperpigmented patches throughout left arm and left chest) Results/Procedures: Labs Laboratory Tests 05/14/23 11:29: Glucometer 13*L 05/14/23 11:50: Ammonia 21 05/14/23 11:59: Glucometer 61L 05/14/23 12:28: Glucometer 94 05/14/23 12:40: Arterial Blood pH 7.34*L, Arterial Blood Partial Pressure CO2 72*H, Arterial Blood Partial Pressure O2 81, Arterial Blood HCO3 39H, Arterial Blood Total CO2 41.0*H, Arterial Blood Oxygen Saturation 97, Arterial Blood Base Excess 9.4H, Blood Gas Ventilator Setting , Blood Gas Inspired Oxygen 05/14/23 14:15: Glucometer 63L 05/14/23 14:34: Glucometer 49*L 05/14/23 15:25: Glucometer 93 05/14/23 15:50: Glucometer 84 05/14/23 16:46: Glucometer 108 05/14/23 20:06: Glucometer 77 05/15/23 04:25: Arterial Blood pH 7.48H, Arterial Blood Partial Pressure CO2 58H, Arterial Blood Partial Pressure O2 93, Arterial Blood HCO3 43*H, Arterial Blood Total CO2 45.0*H, Arterial Blood Oxygen Saturation 99, Arterial Blood Base Excess 16.7H, Blood Gas Ventilator Setting NO, Blood Gas Inspired Oxygen 80% 05/15/23 05:09: White Blood Count 7.9, Red Blood Count 4.53, Hemoglobin 14.3, Hematocrit 45, Mean Corpuscular Volume 100H, Mean Corpuscular Hemoglobin 32, Mean Corpuscular Hemoglobin Concent 32, Red Cell Distribution Width 13.3, Platelet Count 126L, Mean Platelet Volume 10.9, Immature Granulocyte % (Auto) 0, Neutrophils (%) (Auto) 78H, Lymphocytes (%) (Auto) 9L, Monocytes (%) (Auto) 12, Eosinophils (%) (Auto) 1, Basophils (%) (Auto) 0, Neutrophils # (Auto) 6.1, Lymphocytes # (Auto) 0.7L, Monocytes # (Auto) 0.9, Eosinophils # (Auto) 0.0, Basophils # (Auto) 0.0, Immature Granulocyte # (Auto) 0.0, Percent Immature Platelet Fraction 4.3, Sodium Level 142, Potassium Level 4.4, Chloride Level 100, Carbon Dioxide Level 33H, Anion Gap 9, Blood Urea Nitrogen 12, Creatinine 0.74, Estimat Glomerular Filtration Rate 81, BUN/Creatinine Ratio 16, Glucose Level 78, Calcium Level 7.6L, Corrected Calcium 8.9, Phosphorus Level 3.6, Magnesium Level 2.0, Total Bilirubin 1.4H, Aspartate Amino Transf (AST/SGOT) 21, Alanine Aminotransferase (ALT/SGPT) 13, Alkaline Phosphatase 75, Total Protein 4.8L, Albumin 2.4L Microbiology 05/14/23 MRSA Screen - Final, Complete MRSA not isolated Procedures NAME: BENIGNO KUMAR [facility] REC#: [id number] PT STATUS: ADM [place] : 1940 PHYSICIAN: CHELY ESPARZA DO ADMIT DATE: 05/14/23/ICU Signed Date of Exam:05/14/23 US ABDOMEN LIMITED [id number] EXAM: Limited abdominal ultrasound. DATE: May 14, 2023. COMPARISON: CT abdomen and pelvis May 14, 2015. INDICATION: 82-year-old female, right upper quadrant abdominal pain. PROCEDURE: Two-dimensional grayscale and color doppler ultrasound examination of the abdomen is performed. FINDINGS: The liver contours are not grossly nodular. There is a moderate to large volume ascites. IMPRESSION: 1. Moderate to large volume ascites. 2. The liver is incompletely imaged. The outer liver contours are not obviously nodular. Dictated by: Dictated on workstation # [id number] Dict: 05/14/23 1447 Trans: 05/14/23 1620 CVB [id number] Interpreted by: DANYEL ARORA MD Electronically signed by: DANYEL ARORA MD 05/14/23 1620 NAME: BENIGNO KUMAR [facility] REC#: [id number] PT STATUS: ADM IN : 1940 PHYSICIAN: MALCOLM SIMEON MD ADMIT DATE: 05/14/23/ICU Signed Date of Exam:05/14/23 CHEST 1 VIEW, AP/PA ONLY EXAM: CHEST 1 VIEW, AP/PA ONLY INDICATION: Hypoxia. COMPARISON: 07/03/2019. FINDINGS: Cardiomegaly with pulmonary vascular congestion. Large right pleural effusion. No pneumothorax. No acute osseous findings. IMPRESSION: Cardiomegaly with pulmonary vascular congestion and large right pleural effusion. Dictated by: Dictated on workstation # [id number] Dict: 05/14/23 0654 Trans: 05/14/23 0912 CVB [id number] Interpreted by: EAMON FU MD Electronically signed by: EAMON FU MD 05/14/23 09 A/P: Assessment: Acute on chronic respiratory failure - currently on BiPAP - Combination of acute exacerbation of COPD and pulmonary edema congestive heart failure Congestive heart failure - acute left ventricular systolic dysfunction and cor pulmonale with severe pulmonary hypertension - Echocardiogram of 05-14-[address] De La Paz showed LVEF 45-50%. LA/RA mildly dilated. Mod TR. PASP 50-55 mmHG Pulmonary HTN Pulmonary edema/pleural effusion and large ascites - Starting aggressive diuresis, monitor electrolytes and renal function - May require thoracentesis and paracentesis Acute exacerbation of COPD, hypercapnic respiratory failure - Managed by medical team Coronary artery disease - History of cardiac catheterization in 2017 with total occlusion of the mid LAD reconstructed by collaterals from the right system otherwise nonobstructive disease ejection fraction was normal at that time - Patient was seen at with Dr. Contreras and attempt to revascularize the LAD was unsuccessful - Conservative management was recommended History of chest pain, continue to monitor Chronic pedal edema History of back pain herniated disc at L2, multiple injection with debilitating back pain History of reconstructed jaw surgery. Hypertension - monitor blood pressure History of bradycardia at night - had sleep study was negative in the past, still high suspicion of underlying sleep apnea Hyperlipidemia Diabetes mellitus - multiple episodes of hypoglycemia - Followed and managed by primary care physician H/O endometrial cancer Plan: Reviewed note from Dr. De La Paz Continue current regimen Monitor lab closely Replace electrolytes as indicated ANABEL MAYO May 15, 2023 09:18
[2023-05-15 09:23] VITALS: BP 122/54
--- NOTE | 2023-05-15 11:11 | Consultation - Surgery ---
History of Present Illness History of Present Illness Patient Consulted On(ange/time) 05/15/23 11:07 Time Seen by Provider: 10:24 Reason for Visit: Shortness of breath History of Present Illness Surgery asked to consult regarding pleural effusion, respiratory failure and ascites. HPI per ED: Patient is an 82-year-old female brought to the emergency room by ambulance, chief complaint generalized weakness. The patient cannot really tell me any timeline of events prior to arrival. Very poor historian. Was reportedly in the 80s on her 3 L at home. Denies any complaints of chest pain, nausea, diarrhea, urinary complaints. Her is not available for further history. Patient is a bit somnolent on arrival. When I spoke with family and then pt, main complaint was of trouble breathing. The daughter related that at home they found out (from a home visit) pt's O2 saturation was 60%. She also had been having some decreased mentation; which most likely was due to the low O2. She has been mostly bed bound for the past 5 yrs, can get up and go to the bathroom. She was not really complaining of abdominal pain, but had some chest pain (in ED) and work-up showed a completely blocked LAD that they were unable to open. Pt was alert and able to answer questions when I saw her. Allergies and Home Medications Allergies Coded Allergies: Sulfa (Sulfonamide Antibiotics) (Unverified Allergy, Unknown, HIVES, SOB, 10/27/06) morphine (Unverified Allergy, Unknown, Pt has received Lortab in the pas, 07/05/19) propoxyphene (Unverified Allergy, Unknown, UNKNOWN, 10/27/06) erythromycin base (Unverified Adverse Reaction, Unknown, SICK TO HER STOMACH, CRAMPS, VOMITING, 10/27/06) Patient Home Medication List Home Medication List Reviewed: Yes Duloxetine HCl (Duloxetine HCl) 30 Mg Capsule.dr, 30 MG PO DAILY, (Reported) Entered as Reported by: GERBER CAR on 05/14/23 6364 Last Action: Reviewed Famotidine (Famotidine) 20 Mg Tablet, 40 MG PO BID, (Reported) Entered as Reported by: GERBER CAR on 05/14/23 8569 Last Action: Reviewed Fexofenadine HCl (Fexofenadine HCl) 180 Mg Tablet, 180 MG PO DAILY, (Reported) Entered as Reported by: GERBER CAR on 05/14/23 3144 Last Action: Reviewed Hydrocodone/Acetaminophen (Hydrocodone-Acetamin 10-325 mg) 10 Mg-325 Mg Tablet, 1 EA PO Q6H PRN for PAIN-MODERATE (5-7), (Reported) Entered as Reported by: GERBER CAR on 05/14/23 1358 Last Action: Reviewed Insulin Determir (Levemir) 100 Unit/Ml Soln, 50 UNITS SQ HS, (Reported) Entered as Reported by: BRIAN HARRISON on 07/04/19919 Last Action: Reviewed Metoprolol Succinate (Metoprolol Succinate) 25 Mg Tab.er.24h, 25 MG PO DAILY, (Reported) Entered as Reported by: GERBER CAR on 05/14/23 135 Last Action: Reviewed Discontinued Medications Albuterol Sulfate (Albuterol Sulfate) 2.5 Mg/3 Ml Vial.neb, 2.5 MG IH QID PRN for SHORTNESS OF BREATH, (Reported) Discontinued Reason: No Longer Taking Entered as Reported by: SARAI SOTO on 08/03/171644 Last Action: Discontinued Albuterol Sulfate (Ventolin Hfa) 18 Gm Hfa.aer.ad, 2 PUFF INH Q4H PRN for SHORTNESS OF BREATH, (Reported) Discontinued Reason: No Longer Taking Entered as Reported by: BRIAN HARRISON on 07/04/19919 Last Action: Discontinued Amlodipine Besylate (Amlodipine Besylate) 5 Mg Tablet, 5 MG PO DAILY, (Reported) Discontinued Reason: No Longer Taking Entered as Reported by: SARAI SOTO on 08/03/17 164 Last Action: Discontinued Aspirin (Adult Low Dose Aspirin EC) 81 Mg Tablet.dr, 81 MG PO DAILY, (Reported) Discontinued Reason: No Longer Taking Entered as Reported by: LORNA HEWITT on 07/23/16 0303 Last Action: Discontinued Atenolol (Atenolol) 25 Mg Tablet, 25 MG PO HS, (Reported) Discontinued Reason: No Longer Taking Entered as Reported by: KENNETH BULLARD on 04/09/19 1628 Last Action: Discontinued Cholecalciferol (Vitamin D3) (Vitamin D-3) 2,000 Unit Tablet, 2,000 UNIT PO DAILY, (Reported) Discontinued Reason: No Longer Taking Entered as Reported by: BRIAN HARRISON on 07/04/19919 Last Action: Discontinued Diphenhydramine HCl (Banophen) 25 Mg Capsule, 50 MG PO HS, (Reported) Discontinued Reason: No Longer Taking Entered as Reported by: BRIAN HARRISON on 07/04/19919 Last Action: Discontinued Doxycycline Hyclate (Doxycycline Hyclate) 100 Mg Tablet, 100 MG PO BID Discontinued Reason: No Longer Taking Prescribed by: MAHOGANY SANTAMARIA on 08/30/21 1842 Last Action: Discontinued Furosemide (Furosemide) 20 Mg Tablet, 20 MG PO DAILY, (Reported) Discontinued Reason: No Longer Taking Entered as Reported by: SARAI SOTO on 08/03/17 164 Last Action: Discontinued Hydrochlorothiazide (Hydrochlorothiazide) 25 Mg Tablet, 25 MG PO HS, (Reported) Discontinued Reason: No Longer Taking Entered as Reported by: MICHELLE NUGENT on 05/14/152142 Last Action: Discontinued Hydrocodone Bit/Acetaminophen (HYDROcodone/APAP 10/325 TABLET) 1 Each Tablet, 1 TAB PO Q6H PRN for PAIN-MODERATE, (Reported) Discontinued Reason: No Longer Taking Entered as Reported by: SARAI SOTO on 08/03/17 1645 Last Action: Discontinued Insulin Aspart (Novolog) 100 Unit/1 Ml Susp, 20 UNIT SQ DAILY, (Reported) Discontinued Reason: No Longer Taking Entered as Reported by: KENNETH BULLARD on 04/09/19 1636 Last Action: Discontinued Insulin Determir (Levemir) 1,000 Units/10 Ml Soln, 10 UNITS SC DAILY, (Reported) Discontinued Reason: No Longer Taking Entered as Reported by: BRIAN HARRISON on 07/04/19919 Last Action: Discontinued Losartan Potassium (Losartan Potassium) 25 Mg Tablet, 25 MG PO DAILY, (Reported) Discontinued Reason: No Longer Taking Entered as Reported by: LORNA HEWITT on 07/23/16 5873 Last Action: Discontinued Meclizine HCl (Meclizine HCl) 25 Mg Tablet, 25 MG PO TID PRN for DIZZINESS Discontinued Reason: No Longer Taking Prescribed by: BONITA NEGRON on 01/16/20 1250 Last Action: Discontinued Miconazole Nitrate (Lotrimin AF) 90 Gm Powder, 0 GM TOP BID Discontinued Reason: No Longer Taking Prescribed by: CHELY ESPARZA on 07/18/19834 Last Action: Discontinued Nystatin (Nystatin) 15 Gm Cream..g., 0 GM TP TID Discontinued Reason: No Longer Taking Prescribed by: CHELY ESPARZA on 07/18/19834 Last Action: Discontinued Ondansetron (Ondansetron Odt) 4 Mg Tab.rapdis, 4 MG PO Q6H PRN for NAUSEA/VOMITING Discontinued Reason: No Longer Taking Prescribed by: BONITA NEGRON on 01/16/20 1250 Last Action: Discontinued Pantoprazole Sodium (Pantoprazole Sodium) 40 Mg Tablet.dr, 40 MG PO DAILY, (Reported) Discontinued Reason: No Longer Taking Entered as Reported by: KENNETH BULLARD on 04/09/19 1628 Last Action: Discontinued Prednisone (Prednisone) 10 Mg Tab.ds.pk, 10 MG PO DAILY Discontinued Reason: No Longer Taking Prescribed by: CHELY ESPARZA on 07/18/19834 Last Action: Discontinued Promethazine HCl/Codeine (Prometh-Codein 6.25-10 mg/5 ml) 5 Ml Syrup, 5-10 ML PO Q6H PRN for COUGH, (Reported) Discontinued Reason: No Longer Taking Entered as Reported by: BRIAN HARRISON on 07/04/19919 Last Action: Discontinued Ranolazine (Ranolazine ER) 1,000 Mg Tab.er.12h, 1,000 MG PO BID, (Reported) Discontinued Reason: No Longer Taking Entered as Reported by: BRIAN HARRISON on 07/04/19919 Last Action: Discontinued Rosuvastatin Calcium (Rosuvastatin Calcium) 10 Mg Tablet, 10 MG PO HS, (Reported) Discontinued Reason: No Longer Taking Entered as Reported by: SARAI SOTO on 08/03/171644 Last Action: Discontinued Spironolactone (Spironolactone) 25 Mg Tablet, 25 MG PO DAILY, (Reported) Discontinued Reason: No Longer Taking Entered as Reported by: SARAI SOTO on 08/03/171644 Last Action: Discontinued Past Zpydtuh-Toapio-Inqvfv Hx Patient Social History Smoking Status: Former Smoker Former Smoker, Quit: Mar 27, 1988 Type Used: Cigarettes 2nd Hand Smoke Exposure: No Recent Hopitalizations: No Alcohol Use?: No Immunizations Up To Date Tetanus Booster (TDap): Unknown PED Vaccines UTD: Yes Date of Pneumonia Vaccine: November 01, 2008 Date of Influenza Vaccine: Apr 12, 2019 Seasonal Allergies Seasonal Allergies: No Surgeries History of Surgeries: Yes Surgeries: Angioplasty (attempted), Hysterectomy Respiratory History of Respiratory Disorde: Yes (O2 PRN) Respiratory Disorders: Sleep Apnea, COPD Cardiovascular History of Cardiac Disorders: Yes Cardiac Disorders: High Cholesterol, Hypertension Neurological History of Neurological Disord: Yes (PERIPHERAL NEUROPATHY) Neurological Disorders: Neuropathy Reproductive System Hx Reproductive Disorders: Yes (ENDOMETRIAL CANCER--S/P HYST/BSO) [employer] History: Hysterectomy Genitourinary History of Genitourinary Disor: No Gastrointestinal History of Gastrointestinal Di: Yes (HEPATITIS CHILD) Gastrointestinal Disorders: Hepatitis, Ulcer Musculoskeletal History of Musculoskeletal Dis: Yes Musculoskeletal Disorders: Degenerate Disk Disease, Arthritis, Back Injury, Chronic Back Pain Endocrine History of Endocrine Disorders: Yes (OBESITY) Endocrine Disorders: Diabetes, Insulin dep HEENT History of HEENT Disorders: Yes HEENT Disorders: Cataract Loss of Vision: Denies Hearing Impairment: Denies Cancer History of Cancer: Yes (ENDOMETRIAL CANCER) Cancer: Uterine Psychosocial History of Psychiatric Problem: No Integumentary History of Skin or Integumenta: No Blood Transfusions History of Blood Disorders: No Family Medical History Significant Family History: Other Conditions/Hx (Pt is adopted, doesn't know any family hx) Review of Systems-General Constitutional: No chills; malaise, weakness EENTM: No mouth swelling, No epistaxis Respiratory: cough, dyspnea on exertion; No hemoptysis; short of breath Cardiovascular: chest pain, Hx of Intervention; No palpitations Gastrointestinal: abdominal pain; No jaundice, No nausea, No vomiting Genitourinary: No dysuria, No hematuria Musculoskeletal: back pain, joint pain, joint swelling, muscle pain, muscle stiffness Skin: No change in hair/nails; other (skin changes on arm) Psychiatric/Neurological: Denies Emotional Problems, Denies Seizure, Denies Tremors Physical Exam-General Problems Physical Exam Vital Signs Vital Signs - First Documented 05/14/23 04:36 FiO2 60 Capillary Refill : Less Than 3 Seconds General Appearance: mild distress (secondary to breathing and BiPap), obese Eyes: Bilateral Eye PERRL, Bilateral Eye EOMI HEENT: pharynx normal; No scleral icterus (R), No scleral icterus (L) Neck: non-tender, supple Respiratory: lungs clear (on left only), respiratory distress (mild, improved since starting BiPap), decreased breath sounds (right side), accessory muscle use Cardiovascular: regular rate, rhythm, no murmur Gastrointestinal: soft, no organomegaly, tenderness (in RUQ with deep palpation) Extremities: no calf tenderness, pedal edema (+2) Neurologic/Psychiatric: alert, oriented x 3 Skin: normal color, warm/dry, other (large erythematous areas on both arms) Data Review Labs Laboratory Tests 05/14/23 11:29: Glucometer 13*L 05/14/23 11:50: Ammonia 21 05/14/23 11:59: Glucometer 61L 05/14/23 12:28: Glucometer 94 05/14/23 12:40: Arterial Blood pH 7.34*L, Arterial Blood Partial Pressure CO2 72*H, Arterial Blood Partial Pressure O2 81, Arterial Blood HCO3 39H, Arterial Blood Total CO2 41.0*H, Arterial Blood Oxygen Saturation 97, Arterial Blood Base Excess 9.4H, Blood Gas Ventilator Setting , Blood Gas Inspired Oxygen 05/14/23 14:15: Glucometer 63L 05/14/23 14:34: Glucometer 49*L 05/14/23 15:25: Glucometer 93 05/14/23 15:50: Glucometer 84 05/14/23 16:46: Glucometer 108 05/14/23 20:06: Glucometer 77 05/15/23 04:25: Arterial Blood pH 7.48H, Arterial Blood Partial Pressure CO2 58H, Arterial Blood Partial Pressure O2 93, Arterial Blood HCO3 43*H, Arterial Blood Total CO2 45.0*H, Arterial Blood Oxygen Saturation 99, Arterial Blood Base Excess 16.7H, Blood Gas Ventilator Setting NO, Blood Gas Inspired Oxygen 80% 05/15/23 05:09: White Blood Count 7.9, Red Blood Count 4.53, Hemoglobin 14.3, Hematocrit 45, Mean Corpuscular Volume 100H, Mean Corpuscular Hemoglobin 32, Mean Corpuscular Hemoglobin Concent 32, Red Cell Distribution Width 13.3, Platelet Count 126L, Mean Platelet Volume 10.9, Immature Granulocyte % (Auto) 0, Neutrophils (%) (Auto) 78H, Lymphocytes (%) (Auto) 9L, Monocytes (%) (Auto) 12, Eosinophils (%) (Auto) 1, Basophils (%) (Auto) 0, Neutrophils # (Auto) 6.1, Lymphocytes # (Auto) 0.7L, Monocytes # (Auto) 0.9, Eosinophils # (Auto) 0.0, Basophils # (Auto) 0.0, Immature Granulocyte # (Auto) 0.0, Percent Immature Platelet Fraction 4.3, Sodium Level 142, Potassium Level 4.4, Chloride Level 100, Carbon Dioxide Level 33H, Anion Gap 9, Blood Urea Nitrogen 12, Creatinine 0.74, Estimat Glomerular Filtration Rate 81, BUN/Creatinine Ratio 16, Glucose Level 78, Calcium Level 7.6L, Corrected Calcium 8.9, Phosphorus Level 3.6, Magnesium Level 2.0, Total Bilirubin 1.4H, Aspartate Amino Transf (AST/SGOT) 21, Alanine Aminotransferase (ALT/SGPT) 13, Alkaline Phosphatase 75, Total Protein 4.8L, Albumin 2.4L Microbiology 05/14/23 Urine Culture - Preliminary, Resulted Gram Pos Mixed Bacterial Stephanie 05/14/23 MRSA Screen - Final, Complete MRSA not isolated Radiology Date of Exam:05/14/23 US CHEST [id number] HISTORY: Right pleural effusion COMPARISON: Chest x-ray from 05/14/2023. TECHNIQUE: Patient was unable to sit upright and the right chest was scanned with the patient in the left lateral decubitus position. FINDINGS/ IMPRESSION:: 1. There is a moderate right pleural effusion. Dictated by: Dictated on workstation # [id number] Dict: 05/14/23 1356 Trans: 05/14/23 1540 CV [id number] Interpreted by: DANA MCGILL MD Electronically signed by: DANA MCGILL MD 05/14/23 1540 Date of Exam:05/14/23 US ABDOMEN LIMITED [id number] EXAM: Limited abdominal ultrasound. DATE: May 14, 2023. COMPARISON: CT abdomen and pelvis May 14, 2015. INDICATION: 82-year-old female, right upper quadrant abdominal pain. PROCEDURE: Two-dimensional grayscale and color doppler ultrasound examination of the abdomen is performed. FINDINGS: The liver contours are not grossly nodular. There is a moderate to large volume ascites. IMPRESSION: 1. Moderate to large volume ascites. 2. The liver is incompletely imaged. The outer liver contours are not obviously nodular. Dictated by: Dictated on workstation # [id number] Dict: 05/14/23 1447 Trans: 05/14/23 1620 CVB [id number] Interpreted by: DANYEL ARORA MD Electronically signed by: DANYEL ARORA MD 05/14/23 5089 Assessment/Plan Assessment/Plan Assessment/Plan Right Pleural effusion Respiratory Failure Ascites MO, COPD, Sleep Apnea I spoke to the family earlier and we discussed all the options; Do nothing, Thoracentesis (alone), Paracentesis (alone) or both. I went over risks and complications; incluiding but not limited to pain, bleeding, infection, scar, possible PTX and need for chest tube. Spoke with Daughter, and grandson. I answered all their questions and we decided on a course of just trying the Thoracentesis; since the pt's biggest complaint is "air hunger". I agreed with this plan of treatment. Since that time the family has asked that pt be transferred to [place]; that is where the daughter lives. I talked again to them about the Thoracentesis and I told them I think it would be best to not do the procedure. I would hate for there to be a complication (i.e. pneumothorax) and she has trouble during transportation. They understood and agreed. I also spoke to Dr. Esparza about pt's care and reviewed the Ultrasounds myself. I spoke with them for over 45 minutes combined between the first and second conversations. As well as with Dr. Esparza and with chart review. LORNA LOERA DO May 15, 2023 11:11
[2023-05-15] MEDS ORDERED: MICONAZOLE 2% POWDER 90 GM TOP SCH (11:45)
--- NOTE | 2023-05-15 12:06 | Progress Note ---
TONY PERKINS 05/15/23 1206: Subjective Date Seen by a Provider: May 15, 2023 Time Seen by a Provider: 12:01 Subjective/Events-last exam Pt is an 82 y/o female who presented to the ER yesterday d/t generalized weakness and SOB. She stated that she had been feeling sick x1 week and had upper airway congestion. Was reportedly 80% sat on 3L O2 at home. Was apparently somnolent and confused in ER. Pt is able to communicate today although at times she is mildly confused. Reports continued SOB although she thinks this is better than when she first ar rived at the hospital. Per nursing, was on 40% BiPap which was escalated to 80% d/t SOB and now is currently 28/01 on 60%. She reports that she has not been moving much at all and states that she has a significant amount of swelling in her b/l legs and R arm. She was supposed to have thoracentesis with Dr. Lopez to investigate the etiology of the large R pleural effusion found via imaging today. She is joined by family at bedside (daughter, grandson, ). Her daughter who is a psychiatrist requests a transfer to [facility] in [place] for higher acuity care. Review of Systems General: No Chills; Fatigue HEENT: No Head Aches, No Visual Changes Pulmonary: Dyspnea; No Cough Cardiovascular: No: Chest Pain, Palpitations Gastrointestinal: No: Nausea, Vomiting Genitourinary: No Dysuria, No Frequency Musculoskeletal: back pain; No: hand pain Neurological: Weakness; No: Change in speech Focused Exam Sepsis Stage: Ruled Out Lactate Level 05/14/23 04:00: Lactic Acid Level 1.16 Objective Exam Last Set of Vital Signs Vital Signs Date Time Temp Pulse Resp B/P (MAP) Pulse Ox O2 Delivery O2 Flow Rate FiO2 05/15/23 11:00 78 113/58 (83) 96 NIV Bilevel 60.00 05/15/23 09:23 21 05/15/23 08:36 36.8 05/15/23 08:00 80 Capillary Refill : Less Than 3 Seconds I&O Intake and Output 05/14/23 23:59 Intake Total 550 ml Output Total 1550 ml Balance -1000 ml Intake Oral 100 ml IV Total 450 ml Output Urine Total 1550 ml Daily Weight Change No General: Alert, Oriented X3, Cooperative, Other (mildly confused but communicative) HEENT: PERRLA, Mucous Memb Moist/[place] Neck: Supple Lungs: Other (decreased breath sounds in R lung base. Wheezes b/l. ) Heart: Regular Rate Abdomen: Soft, Other (tender to palpation in hypogastric, RLQ, and LLQ) Extremities: Other (b/l LE edema 2-3+, R arm edema ) Skin: No Significant Lesion Neuro: Normal Speech Psych/Mental Status: Other (mildly confused) Results Lab Laboratory Tests 05/14/23 12:28: Glucometer 94 05/14/23 12:40: Arterial Blood pH 7.34*L, Arterial Blood Partial Pressure CO2 72*H, Arterial Blood Partial Pressure O2 81, Arterial Blood HCO3 39H, Arterial Blood Total CO2 41.0*H, Arterial Blood Oxygen Saturation 97, Arterial Blood Base Excess 9.4H, Blood Gas Ventilator Setting , Blood Gas Inspired Oxygen 05/14/23 14:15: Glucometer 63L 05/14/23 14:34: Glucometer 49*L 05/14/23 15:25: Glucometer 93 05/14/23 15:50: Glucometer 84 05/14/23 16:46: Glucometer 108 05/14/23 20:06: Glucometer 77 05/15/23 04:25: Arterial Blood pH 7.48H, Arterial Blood Partial Pressure CO2 58H, Arterial Blood Partial Pressure O2 93, Arterial Blood HCO3 43*H, Arterial Blood Total CO2 45.0*H, Arterial Blood Oxygen Saturation 99, Arterial Blood Base Excess 16.7H, Blood Gas Ventilator Setting NO, Blood Gas Inspired Oxygen 80% 05/15/23 05:09: White Blood Count 7.9, Red Blood Count 4.53, Hemoglobin 14.3, Hematocrit 45, Mean Corpuscular Volume 100H, Mean Corpuscular Hemoglobin 32, Mean Corpuscular Hemoglobin Concent 32, Red Cell Distribution Width 13.3, Platelet Count 126L, Mean Platelet Volume 10.9, Immature Granulocyte % (Auto) 0, Neutrophils (%) (Auto) 78H, Lymphocytes (%) (Auto) 9L, Monocytes (%) (Auto) 12, Eosinophils (%) (Auto) 1, Basophils (%) (Auto) 0, Neutrophils # (Auto) 6.1, Lymphocytes # (Auto) 0.7L, Monocytes # (Auto) 0.9, Eosinophils # (Auto) 0.0, Basophils # (Auto) 0.0, Immature Granulocyte # (Auto) 0.0, Percent Immature Platelet Fraction 4.3, Sodium Level 142, Potassium Level 4.4, Chloride Level 100, Carbon Dioxide Level 33H, Anion Gap 9, Blood Urea Nitrogen 12, Creatinine 0.74, Estimat Glomerular Filtration Rate 81, BUN/Creatinine Ratio 16, Glucose Level 78, Calcium Level 7.6L, Corrected Calcium 8.9, Phosphorus Level 3.6, Magnesium Level 2.0, Total Bilirubin 1.4H, Aspartate Amino Transf (AST/SGOT) 21, Alanine Aminotransferase (ALT/SGPT) 13, Alkaline Phosphatase 75, Total Protein 4.8L, Albumin 2.4L 05/15/23 11:40: Glucometer 93 Microbiology 05/14/23 Urine Culture - Preliminary, Resulted Gram Pos Mixed Bacterial Stephanie 05/14/23 MRSA Screen - Final, Complete MRSA not isolated Assessment/Plan Assessment/Plan Assess & Plan/Chief Complaint Acute on chronic respiratory failure with hypercapnia w/ CO2 narcosis - underlying PMhx of COPD on O2 at home - Currently on BiPAP 28/01 at 60% - Continue supportive care - Improved overall but high risk for decompensation Right-sided pleural effusion, large - Concerns for malignancy. Exam significant for right arm lymphadenopathy. S/p hysterectomy d/t uterine cancer around 15 years ago - No evidence of PNA on CXR. WBC normal. - Thoracentesis with Dr. Lopez (general surgery) was planned but pt will now be transferring - Consider CT with contrast chest, abd, pelvis. to cancer work up - Continue Lasix 80 mg Presumed malignancy - Uterine cancer dx ~15 years ago with total hysterectomy - Presenting with ascites via exam and abd US. - Thoracentesis of R pleural effusion with Dr. Lopez (general surgery) was planned but pt will now be transferring Insulin-dependent diabetes w/ episode of hypoglycemia - Sliding scale insulin. - Darryl of 13 on 05/14 - Continue to monitor closely Pt and family has requested a transfer to [facility] in [place] JACQUELINE ESPARZA DO 05/16/23 0607: Supervisory-Addendum Brief Verification & Attestation Participated in pt care: history, MDM, physical Personally performed: exam, history, MDM, supervision of care Care discussed with: Medical Student Procedures: n/a Results interpretation: Verified all documentation Verification and Attestation of Medical Student E/M Service A medical student performed and documented this service in my presence. I reviewed and verified all information documented by the medical student and made modifications to such information, when appropriate. I personally performed the physical exam and medical decision making. Jacqueline Esparza, May 16, 2023,06:07 TONY PERKINS May 15, 2023 12:06 JACQUELINE ESPARZA DO May 16, 2023 06:07
--- NOTE | 2023-05-15 12:07 | Discharge Summary ---
Diagnosis/Chief Complaint Date of Admission May 14, 2023 at 05:47 Date of Discharge Discharge Date: May 15, 2023 Discharge Diagnosis Acute on chronic respiratory failure with hypercapnic induced CO2 narcosis requiring BiPAP and Precedex in ICU Right-sided pleural effusion with ascites all new onset with history of uterine cancer presumed cancer metastasis with malignant ascites and effusion Super morbid obesity likely obesity hypoventilation syndrome Reason Hospital Visit Chief complaint: Acute on chronic respiratory failure with altered mental status due to CO2 narcosis HPI: This is an 82-year-old female clinic patient of Dr. Clay who has a past medical history of uterine cancer status post complete hysterectomy and chronic respiratory failure on 3 L at home and super morbid obesity who presented to the ER with altered mental status and weakness found to have abnormal ABG with evidence of CO2 narcosis requiring BiPAP. She was found to have consistent hypoglycemia requiring D50 amps so I have transition to D10 drip. All findings are consistent with likely uterine cancer with widespread metastasis causing ascites and right-sided pleural effusion consulted Dr. Tariq for thoracentesis and paracentesis. Patient interested in full code and intubation if necessary. I did update will by phone as I was gathering all the data. Their daughter is a psychiatrist in [place] and I will talk to her tomorrow at the bedside. Discharge Summary Discharge Physical Examination Allergies: Coded Allergies: Sulfa (Sulfonamide Antibiotics) (Unverified Allergy, Unknown, HIVES, SOB, 10/27/06) morphine (Unverified Allergy, Unknown, Pt has received Lortab in the pas, 07/05/19) propoxyphene (Unverified Allergy, Unknown, UNKNOWN, 10/27/06) erythromycin base (Unverified Adverse Reaction, Unknown, SICK TO HER STOMACH, CRAMPS, VOMITING, 10/27/06) Vitals & I&Os Vital Signs Date Time Temp Pulse Resp B/P (MAP) Pulse Ox O2 Delivery O2 Flow Rate FiO2 05/15/23 14:31 84 27 98 60.00 05/15/23 14:00 111/49 (75) NIV Bilevel 05/15/23 12:04 36.9 05/15/23 12:00 60 General Appearance: Alert, Cooperative Respiratory: Clear to Auscultation Hospital Course Was the Problem List Reviewed?: Yes Short hospital course before transferring to [facility] due to acute on chronic respiratory failure hypercapnic type due to obesity hypoventilation syndrome and severe right-sided pleural effusion with severe ascites presumed to be malignant effusions and the need for specialty care including pulmonology maintain on BiPAP and request from daughter to transfer. Poor prognosis assessed. Labs (last 24 hrs) Laboratory Tests 05/14/23 03:08: Glucometer 192H 05/14/23 03:09: White Blood Count 7.1, Red Blood Count 4.84, Hemoglobin 15.2, Hematocrit 50, Mean Corpuscular Volume 103H, Mean Corpuscular Hemoglobin 31, Mean Corpuscular Hemoglobin Concent 31L, Red Cell Distribution Width 13.5, Platelet Count 157, Mean Platelet Volume 10.9, Immature Granulocyte % (Auto) 0, Neutrophils (%) (Auto) 75, Lymphocytes (%) (Auto) 12, Monocytes (%) (Auto) 11, Eosinophils (%) (Auto) 1, Basophils (%) (Auto) 0, Neutrophils # (Auto) 5.4, Lymphocytes # (Auto) 0.9L, Monocytes # (Auto) 0.8, Eosinophils # (Auto) 0.0, Basophils # (Auto) 0.0, Immature Granulocyte # (Auto) 0.0, Prothrombin Time 14.8H, INR Comment 1.1, Activated Partial Thromboplast Time 32, Sodium Level 140, Potassium Level 4.1, Chloride Level 100, Carbon Dioxide Level 31, Anion Gap 9, Blood Urea Nitrogen 15, Creatinine 0.81, Estimat Glomerular Filtration Rate 73, BUN/Creatinine Ratio 19, Glucose Level 209H, Calcium Level 8.0L, Corrected Calcium 9.0, Total Bilirubin 1.0, Aspartate Amino Transf (AST/SGOT) 23, Alanine Aminotransferase (ALT/SGPT) 18, Alkaline Phosphatase 81, B-Type Natriuretic Peptide 1667.6H, Total Protein 5.6L, Albumin 2.8L 05/14/23 04:00: Lactic Acid Level 1.16 05/14/23 04:09: Arterial Blood pH 7.28*L, Arterial Blood Partial Pressure CO2 85*H, Arterial Blood Partial Pressure O2 115H, Arterial Blood HCO3 40H, Arterial Blood Total CO2 42.5*H, Arterial Blood Oxygen Saturation 97, Arterial Blood Base Excess 9.6H , Blood Gas Ventilator Setting NO, Blood Gas Inspired Oxygen 10L 05/14/23 09:00: Urine Color ORANGE, Urine Clarity CLEAR, Urine pH 5.5, Urine Specific [place] 1.025H, Urine Protein 2+H, Urine Glucose (UA) NEGATIVE, Urine Ketones NEGATIVE, Urine Nitrite NEGATIVE, Urine Bilirubin 1+H, Urine Urobilinogen 1.0, Urine Leukocyte Esterase NEGATIVE, Urine RBC (Auto) 3+H, Urine RBC TNTCH, Urine WBC RARE, Urine Squamous Epithelial Cells 5-10, Urine Crystals PRESENTH, Urine Amorphous Sediment RARE LENA URATESH, Urine Bacteria TRACE, Urine Casts PRESENT, Urine Hyaline Casts 5-10H, Urine Mucus LARGEH, Urine Culture Indicated CULTURE PENDING 05/14/23 11:29: Glucometer 13*L 05/14/23 11:50: Ammonia 21 05/14/23 11:59: Glucometer 61L 05/14/23 12:28: Glucometer 94 05/14/23 12:40: Arterial Blood pH 7.34*L, Arterial Blood Partial Pressure CO2 72*H, Arterial Blood Partial Pressure O2 81, Arterial Blood HCO3 39H, Arterial Blood Total CO2 41.0*H, Arterial Blood Oxygen Saturation 97, Arterial Blood Base Excess 9.4H, Blood Gas Ventilator Setting , Blood Gas Inspired Oxygen 05/14/23 14:15: Glucometer 63L 05/14/23 14:34: Glucometer 49*L 05/14/23 15:25: Glucometer 93 05/14/23 15:50: Glucometer 84 05/14/23 16:46: Glucometer 108 05/14/23 20:06: Glucometer 77 05/15/23 04:25: Arterial Blood pH 7.48H, Arterial Blood Partial Pressure CO2 58H, Arterial Blood Partial Pressure O2 93, Arterial Blood HCO3 43*H, Arterial Blood Total CO2 45.0*H, Arterial Blood Oxygen Saturation 99, Arterial Blood Base Excess 16.7H, Blood Gas Ventilator Setting NO, Blood Gas Inspired Oxygen 80% 05/15/23 05:09: White Blood Count 7.9, Red Blood Count 4.53, Hemoglobin 14.3, Hematocrit 45, Mean Corpuscular Volume 100H, Mean Corpuscular Hemoglobin 32, Mean Corpuscular Hemoglobin Concent 32, Red Cell Distribution Width 13.3, Platelet Count 126L, Mean Platelet Volume 10.9, Immature Granulocyte % (Auto) 0, Neutrophils (%) (Auto) 78H, Lymphocytes (%) (Auto) 9L, Monocytes (%) (Auto) 12, Eosinophils (%) (Auto) 1, Basophils (%) (Auto) 0, Neutrophils # (Auto) 6.1, Lymphocytes # (Auto) 0.7L, Monocytes # (Auto) 0.9, Eosinophils # (Auto) 0.0, Basophils # (Auto) 0.0, Immature Granulocyte # (Auto) 0.0, Percent Immature Platelet Fraction 4.3, Sodium Level 142, Potassium Level 4.4, Chloride Level 100, Carbon Dioxide Level 33H, Anion Gap 9, Blood Urea Nitrogen 12, Creatinine 0.74, Estimat Glomerular Filtration Rate 81, BUN/Creatinine Ratio 16, Glucose Level 78, Calcium Level 7.6L, Corrected Calcium 8.9, Phosphorus Level 3.6, Magnesium Level 2.0, Total Bilirubin 1.4H, Aspartate Amino Transf (AST/SGOT) 21, Alanine Aminotransferase (ALT/SGPT) 13, Alkaline Phosphatase 75, Total Protein 4.8L, Albumin 2.4L 05/15/23 11:40: Glucometer 93 05/15/23 12:15: Influenza Type A (RT-PCR) Not Detected, Influenza Type B (RT-PCR) Not Detected, SARS-CoV-2 RNA (RT-PCR) Not Detected Microbiology 05/14/23 Urine Culture - Preliminary, Resulted Gram Pos Mixed Bacterial Stephanie Culture In Progress 05/14/23 MRSA Screen - Final, Complete MRSA not isolated 05/14/23 Blood Culture - Preliminary, Resulted Pending Labs Microbiology Date/Time Source Procedure Growth Status 05/14/23 09:00 Urine Clean Catch Urine Culture - Preliminary Gram Pos Mixed Bacterial Stephanie Culture In Progress Resulted 05/14/23 06:15 Nasal MRSA Screen - Final MRSA not isolated Complete 05/14/23 04:13 Peripheral Left Wrist Blood Culture - Preliminary Resulted 05/14/23 04:00 Peripheral Arm, Right Blood Culture - Preliminary Resulted Laboratory Tests 05/14/23 03:08: Glucometer 192 05/14/23 03:09: White Blood Count 7.1, Red Blood Count 4.84, Hemoglobin 15.2, Hematocrit 50, Mean Corpuscular Volume 103, Mean Corpuscular Hemoglobin 31, Mean Corpuscular Hemoglobin Concent 31, Red Cell Distribution Width 13.5, Platelet Count 157, Mean Platelet Volume 10.9, Immature Granulocyte % (Auto) 0, Neutrophils (%) (Auto) 75, Lymphocytes (%) (Auto) 12, Monocytes (%) (Auto) 11, Eosinophils (%) (Auto) 1, Basophils (%) (Auto) 0, Neutrophils # (Auto) 5.4, Lymphocytes # (Auto) 0.9, Monocytes # (Auto) 0.8, Eosinophils # (Auto) 0.0, Basophils # (Auto) 0.0, Immature Granulocyte # (Auto) 0.0, Prothrombin Time 14.8, INR Comment 1.1, Activated Partial Thromboplast Time 32, Sodium Level 140, Potassium Level 4.1, Chloride Level 100, Carbon Dioxide Level 31, Anion Gap 9, Blood Urea Nitrogen 15, Creatinine 0.81, Estimat Glomerular Filtration Rate 73, BUN/Creatinine Ratio 19, Glucose Level 209, Calcium Level 8.0, Corrected Calcium 9.0, Total Bilirubin 1.0, Aspartate Amino Transf (AST/SGOT) 23, Alanine Aminotransferase (ALT/SGPT) 18, Alkaline Phosphatase 81, B-Type Natriuretic Peptide 1667.6, Total Protein 5.6, Albumin 2.8 05/14/23 04:00: Lactic Acid Level 1.16 05/14/23 04:09: Arterial Blood pH 7.28, Arterial Blood Partial Pressure CO2 85, Arterial Blood Partial Pressure O2 115, Arterial Blood HCO3 40, Arterial Blood Total CO2 42.5, Arterial Blood Oxygen Saturation 97, Arterial Blood Base Excess 9.6, Blood Gas Ventilator Setting NO, Blood Gas Inspired Oxygen 10L 05/14/23 09:00: Urine Color ORANGE, Urine Clarity CLEAR, Urine pH 5.5, Urine Specific [place] 1.025, Urine Protein 2+, Urine Glucose (UA) NEGATIVE, Urine Ketones NEGATIVE, Urine Nitrite NEGATIVE, Urine Bilirubin 1+, Urine Urobilinogen 1.0, Urine Leukocyte Esterase NEGATIVE, Urine RBC (Auto) 3+, Urine RBC TNTC, Urine WBC RARE, Urine Squamous Epithelial Cells 5-10, Urine Crystals PRESENT, Urine Amorphous Sediment RARE LENA URATES, Urine Bacteria TRACE, Urine Casts PRESENT, Urine Hyaline Casts 5-10, Urine Mucus LARGE, Urine Culture Indicated CULTURE PENDING 05/14/23 11:29: Glucometer 13 05/14/23 11:50: Ammonia 21 05/14/23 11:59: Glucometer 61 05/14/23 12:28: Glucometer 94 05/14/23 12:40: Arterial Blood pH 7.34, Arterial Blood Partial Pressure CO2 72, Arterial Blood Partial Pressure O2 81, Arterial Blood HCO3 39, Arterial Blood Total CO2 41.0, Arterial Blood Oxygen Saturation 97, Arterial Blood Base Excess 9.4, Blood Gas Ventilator Setting , Blood Gas Inspired Oxygen 05/14/23 14:15: Glucometer 63 05/14/23 14:34: Glucometer 49 05/14/23 15:25: Glucometer 93 05/14/23 15:50: Glucometer 84 05/14/23 16:46: Glucometer 108 05/14/23 20:06: Glucometer 77 05/15/23 04:25: Arterial Blood pH 7.48, Arterial Blood Partial Pressure CO2 58, Arterial Blood Partial Pressure O2 93, Arterial Blood HCO3 43, Arterial Blood Total CO2 45.0, Arterial Blood Oxygen Saturation 99, Arterial Blood Base Excess 16.7, Blood Gas Ventilator Setting NO, Blood Gas Inspired Oxygen 80% 05/15/23 05:09: White Blood Count 7.9, Red Blood Count 4.53, Hemoglobin 14.3, Hematocrit 45, Mean Corpuscular Volume 100, Mean Corpuscular Hemoglobin 32, Mean Corpuscular Hemoglobin Concent 32, Red Cell Distribution Width 13.3, Platelet Count 126, Mean Platelet Volume 10.9, Immature Granulocyte % (Auto) 0, Neutrophils (%) (Auto) 78, Lymphocytes (%) (Auto) 9, Monocytes (%) (Auto) 12, Eosinophils (%) (Auto) 1, Basophils (%) (Auto) 0, Neutrophils # (Auto) 6.1, Lymphocytes # (Auto) 0.7, Monocytes # (Auto) 0.9, Eosinophils # (Auto) 0.0, Basophils # (Auto) 0.0, Immature Granulocyte # (Auto) 0.0, Percent Immature Platelet Fraction 4.3, Sodium Level 142, Potassium Level 4.4, Chloride Level 100, Carbon Dioxide Level 33, Anion Gap 9, Blood Urea Nitrogen 12, Creatinine 0.74, Estimat Glomerular Filtration Rate 81, BUN/Creatinine Ratio 16, Glucose Level 78, Calcium Level 7.6, Corrected Calcium 8.9, Phosphorus Level 3.6, Magnesium Level 2.0, Total Bilirubin 1.4, Aspartate Amino Transf (AST/SGOT) 21, Alanine Aminotransferase (ALT/SGPT) 13, Alkaline Phosphatase 75, Total Protein 4.8, Albumin 2.4 05/15/23 11:40: Glucometer 93 05/15/23 12:15: Influenza Type A (RT-PCR) Not Detected, Influenza Type B (RT-PCR) Not Detected, SARS-CoV-2 RNA (RT-PCR) Not Detected Discharge Home Medications: Active Scripts Active Reported Fexofenadine HCl 180 Mg Tablet 180 Mg PO DAILY Hydrocodone-Acetamin 10-325 mg (Hydrocodone/Acetaminophen) 10 Mg-325 Mg Tablet 1 Ea PO Q6H PRN Duloxetine HCl 30 Mg Capsule.dr 30 Mg PO DAILY Metoprolol Succinate 25 Mg Tab.er.24h 25 Mg PO DAILY Famotidine 20 Mg Tablet 40 Mg PO BID Levemir (Insulin Determir) 100 Unit/Ml Soln 50 Units SQ HS Instructions to patient/family Please see electronic discharge instructions given to patient. Diagnosis/Problems Diagnosis/Problems (1) Hypercapnia (2) Pleural effusion on right Status: Acute CHELY ESPARZA DO May 15, 2023 12:07
--- NOTE | 2023-05-15 13:29 | Progress Note - Cardiology ---
Cardiology SOAP Progress Note Subjective: Gen malaise Shortness of breath No n/v No cp or palp Gen swelling Objective: I&O/Vital Signs 05/15/23 05/15/23 05/15/23 05/15/23 02:00 02:03 02:44 02:59 Pulse 75 75 Resp 20 B/P (MAP) 122/63 (82) Pulse Ox 89 91 O2 Delivery NIV Bilevel NIV Bilevel NIV Bilevel O2 Flow Rate 60.00 60.00 100.00 80.00 05/15/23 05/15/23 05/15/23 05/15/23 03:00 04:00 04:00 04:00 Temp 36.6 Pulse 74 72 B/P (MAP) 118/57 (77) 115/55 (75) Pulse Ox 98 93 94 O2 Delivery NIV Bilevel NIV Bilevel NIV Bilevel O2 Flow Rate 80.00 80.00 FiO2 80 05/15/23 05/15/23 05/15/23 05/15/23 05:00 06:00 07:00 07:00 Pulse 71 77 72 71 B/P (MAP) 107/55 (72) 114/59 (77) 126/62 (89) Pulse Ox 93 94 96 O2 Delivery NIV Bilevel NIV Bilevel NIV Bilevel O2 Flow Rate 80.00 80.00 70.00 05/15/23 05/15/23 05/15/23 05/15/23 07:05 08:00 08:00 08:10 Pulse 72 81 81 Resp 20 20 B/P (MAP) 125/69 (100) Pulse Ox 96 92 94 93 O2 Delivery NIV Bilevel NIV Bilevel O2 Flow Rate 80.00 70.00 70.00 FiO2 80 05/15/23 05/15/23 05/15/23 05/15/23 08:36 09:00 09:23 09:36 Temp 36.8 Pulse 80 80 Resp 21 B/P (MAP) 122/54 (86) Pulse Ox 93 91 96 O2 Delivery NIV Bilevel O2 Flow Rate 70.00 70.00 60.00 05/15/23 05/15/23 05/15/23 05/15/23 09:40 10:00 11:00 12:00 Pulse 84 78 77 Resp 32 B/P (MAP) 125/60 (81) 113/58 (83) 114/51 (74) Pulse Ox 96 96 93 O2 Delivery NIV Bilevel NIV Bilevel NIV Bilevel NIV Bilevel O2 Flow Rate 60.00 60.00 60.00 60.00 05/15/23 05/15/23 05/15/23 05/15/23 12:00 12:04 12:35 13:00 Temp 36.9 Pulse 77 80 B/P (MAP) 101/48 (69) Pulse Ox 93 95 O2 Delivery NIV Bilevel NIV Bilevel O2 Flow Rate 60.00 FiO2 60 05/14/23 23:59 Intake Total 550 ml Output Total 1550 ml Balance -1000 ml Weight (Pounds): 230 Weight (Ounces): 0.0 Weight (Calculated Kilograms): [id number] Constitutional: other (On Bi-pap; drowsy; appropriately responisve) Respiratory: No accessory muscle use, No respiratory distress; other (diminished breath sounds RLL) Cardiovascular: regular rate-rhythm, S1 and S2 Gastrointestional: distended; No guarding Extremities: other (right arm lymphadenopathy) Neurologic/Psychiatric: other (moves extremities) Skin: No rash on exposed areas, No ulcerations on exposed areas; other (hyperpigmented patches throughout left arm and left chest) Results/Procedures: Labs Laboratory Tests 05/14/23 14:15: Glucometer 63L 05/14/23 14:34: Glucometer 49*L 05/14/23 15:25: Glucometer 93 05/14/23 15:50: Glucometer 84 05/14/23 16:46: Glucometer 108 05/14/23 20:06: Glucometer 77 05/15/23 04:25: Arterial Blood pH 7.48H, Arterial Blood Partial Pressure CO2 58H, Arterial Blood Partial Pressure O2 93, Arterial Blood HCO3 43*H, Arterial Blood Total CO2 45.0*H, Arterial Blood Oxygen Saturation 99, Arterial Blood Base Excess 16.7H, B lood Gas Ventilator Setting NO, Blood Gas Inspired Oxygen 80% 05/15/23 05:09: White Blood Count 7.9, Red Blood Count 4.53, Hemoglobin 14.3, Hematocrit 45, Mean Corpuscular Volume 100H, Mean Corpuscular Hemoglobin 32, Mean Corpuscular Hemoglobin Concent 32, Red Cell Distribution Width 13.3, Platelet Count 126L, Mean Platelet Volume 10.9, Immature Granulocyte % (Auto) 0, Neutrophils (%) (Auto) 78H, Lymphocytes (%) (Auto) 9L, Monocytes (%) (Auto) 12, Eosinophils (%) (Auto) 1, Basophils (%) (Auto) 0, Neutrophils # (Auto) 6.1, Lymphocytes # (Auto) 0.7L, Monocytes # (Auto) 0.9, Eosinophils # (Auto) 0.0, Basophils # (Auto) 0.0, Immature Granulocyte # (Auto) 0.0, Percent Immature Platelet Fraction 4.3, Sodium Level 142, Potassium Level 4.4, Chloride Level 100, Carbon Dioxide Level 33H, Anion Gap 9, Blood Urea Nitrogen 12, Creatinine 0.74, Estimat Glomerular Filtration Rate 81, BUN/Creatinine Ratio 16, Glucose Level 78, Calcium Level 7.6 L, Corrected Calcium 8.9, Phosphorus Level 3.6, Magnesium Level 2.0, Total Bili negrete 1.4H, Aspartate Amino Transf (AST/SGOT) 21, Alanine Aminotransferase (ALT/SGPT) 13, Alkaline Phosphatase 75, Total Protein 4.8L, Albumin 2.4L 05/15/23 11:40: Glucometer 93 05/15/23 12:15: Influenza Type A (RT-PCR) Not Detected, Influenza Type B (RT-PCR) Not Detected, SARS-CoV-2 RNA (RT-PCR) Not Detected Microbiology 05/14/23 Urine Culture - Preliminary, Resulted Gram Pos Mixed Bacterial Stephanie 05/14/23 MRSA Screen - Final, Complete MRSA not isolated Laboratory Tests 05/14/23 03:09 05/15/23 05:09 A/P: Assessment: Acute on chronic respiratory failure - currently on BiPAP - Combination of acute exacerbation of COPD and pulmonary edema congestive heart failure Congestive heart failure, acute on chronic systolic and diastolic, and cor pulmonale with moderate to severe pulmonary hypertension - Echocardiogram of 05-14-[address] De La Paz showed LVEF 45-50%. LA/RA mildly dilated. Mod TR. PASP 50-55 mmHG Pulmonary HTN R pleural effusion and large ascites - Starting aggressive diuresis, monitor electrolytes and renal function - thoracentesis and paracentesis recommended to eval etiology Acute exacerbation of COPD, hypercapnic respiratory failure - Managed by the Hospitalist service Coronary artery disease - History of cardiac catheterization in 2017 with total occlusion of the mid LAD reconstructed by collaterals from the right system otherwise nonobstructive disease ejection fraction was normal at that time - Patient was seen at with Dr. Contreras and attempt to revascularize the LAD was unsuccessful and conservative management was recommended Chronic pedal edema History of back pain herniated disc at L2, multiple injection with debilitating back pain History of reconstructive jaw surgery. Hypertension - monitor blood pressure History of bradycardia at night - sleep apnea suspected Hyperlipidemia Diabetes mellitus - multiple episodes of hypoglycemia - Followed and managed by primary care physician H/o endometrial cancer Plan: I reviewed Dr De La Paz's notes and records, examined the patient, and spoke with the patient and her family We recommend continuing treatment for decompensated CHF We recommend thoracentesis and paracentesis to eval their etiology Hosp svce managing pulm issues Monitor lab closely PING GOMEZ MD FACP FAC CCDS May 15, 2023 13:29
[2023-05-15 14:31] VITALS: BP 111/49
--- NOTE | 2023-05-15 14:58 | Tele-ICU Progress Note ---
Subjective Date Seen by a Provider: May 15, 2023 Time Seen by a Provider: 09:10 Subjective/Events-last exam (Tele-ICU Physician , Progress Note ) Service provided via interactive audio and video telecommunications E-CARE system to a patient admitted to ICU bed in [facility]. Patient is seen today due to persistent need of ICU care Available chart/ vitals / labs / Images reviewed Video assessment done using teleICU camera, rest of exam as per RN Discussed with RN Events overnight : Afebrile hemodynamically stable Respiratory - I/O = Drips:D10 30 Pressors- no Hospital course: (05/14) 82/F Admitted from ED w/ COPD. CHF. large right pleural effusion, and large volume ascites Follow up with thoracentesis and a paracentesis A/P Acute hypocxia resp failure BIPAP 28/01 rr 20 $0 % tv 500 MV 8 L - lasix 80 bid ECHO 05/15 - EF 45 % Pulmonary edema/pleural effusion and large ascites thoracentesis and a paracentesis - await sx consult DM , hypoglycemia - d10 Pulm HTN - RVSP 50 mmHg Chronic hypoxia Lines : , (Central Line Necessity Reviewed) Red:+ OG: Nutrition: Analgesia: Anxiety/ delirium VTE Prophylaxis: jericho 40 - ON HOLD Stress Ulcer Prophylaxis: Plans in collaboration with bedside consultants and IM MDs. Discussed with RN to reach out if any questions or concerns Case and care daily discussed on multidisciplinary rounds ( RN, PharmD, Nutr itionist , Respiratory Therapy, sanitation worker hosing machinery ) A total of 20 minutes of critical care time was devoted to this patient today, required to treat and/or prevent further deterioration of critical care condition ( as above ) . I am remotely monitoring this patient from another state. I am unable to do the bedside exam, and history/physical and pertinent information is taken from other notes in the computer and bedside staff. Sepsis Event Evaluation Height, Weight, BMI Height: 5'4.00" Weight: 230lbs. 0.0oz. 104.755812bc; 44.48 BMI Method:Stated Focused Exam Lactate Level 05/14/23 04:00: Lactic Acid Level 1.16 Exam Exam Patient acknowledged, consented, and participated in this virtual visit which was conducted using real time audio/video Vital Signs Date Time Temp Pulse Resp B/P (MAP) Pulse Ox O2 Delivery O2 Flow Rate FiO2 05/15/23 14:31 84 27 98 60.00 05/15/23 14:00 80 111/49 (75) 95 NIV Bilevel 60.00 05/15/23 13:00 80 101/48 (69) 95 NIV Bilevel 60.00 05/15/23 12:35 77 05/15/23 12:04 36.9 05/15/23 12:00 93 NIV Bilevel 60 05/15/23 12:00 77 32 114/51 (74) 93 NIV Bilevel 60.00 05/15/23 11:00 78 113/58 (83) 96 NIV Bilevel 60.00 05/15/23 10:00 84 125/60 (81) 96 NIV Bilevel 60.00 05/15/23 09:40 NIV Bilevel 60.00 05/15/23 09:36 96 60.00 05/15/23 09:23 80 21 91 70.00 05/15/23 09:00 80 122/54 (86) 93 NIV Bilevel 70.00 05/15/23 08:36 36.8 05/15/23 08:10 81 20 93 70.00 05/15/23 08:00 94 NIV Bilevel 80 05/15/23 08:00 81 125/69 (100) 92 NIV Bilevel 70.00 05/15/23 07:05 72 20 96 80.00 05/15/23 07:00 71 05/15/23 07:00 72 126/62 (89) 96 NIV Bilevel 70.00 05/15/23 06:00 77 114/59 (77) 94 NIV Bilevel 80.00 05/15/23 05:00 71 107/55 (72) 93 NIV Bilevel 80.00 05/15/23 04:00 72 115/55 (75) 94 NIV Bilevel 80.00 05/15/23 04:00 93 NIV Bilevel 80 05/15/23 04:00 36.6 05/15/23 03:00 74 118/57 (77) 98 NIV Bilevel 80.00 05/15/23 02:59 NIV Bilevel 80.00 05/15/23 02:44 NIV Bilevel 100.00 05/15/23 02:03 75 20 91 60.00 05/15/23 02:00 75 122/63 (82) 89 NIV Bilevel 60.00 05/15/23 01:00 80 131/71 (91) 92 NIV Bilevel 50.00 05/15/23 00:08 75 05/15/23 00:00 75 115/55 (75) 91 NIV Bilevel 50.00 05/14/23 23:59 96 NIV Bilevel 40 05/14/23 23:00 70 111/70 (84) 92 NIV Bilevel 50.00 05/14/23 22:55 68 24 91 40.00 05/14/23 22:00 71 126/69 (88) 95 NIV Bilevel 50.00 05/14/23 21:00 68 111/64 (80) 94 NIV Bilevel 50.00 05/14/23 20:00 67 102/53 (69) 93 NIV Bilevel 50.00 05/14/23 20:00 96 NIV Bilevel 50 05/14/23 19:37 36.9 05/14/23 19:27 67 05/14/23 19:00 68 111/58 (75) 94 NIV Bilevel 50.00 05/14/23 18:43 66 30 97 40.00 05/14/23 18:00 66 112/61 (78) 94 NIV Bilevel 50.00 05/14/23 17:00 65 111/69 (83) 95 NIV Bilevel 50.00 05/14/23 16:00 61 105/55 (72) 90 NIV Bilevel 50.00 05/14/23 16:00 96 NIV Bilevel 50 05/14/23 15:23 36.3 05/14/23 15:00 63 123/93 (103) 96 NIV Bilevel 50.00 I & O 05/15/23 06:59 Intake Total 800 ml Output Total 3150 ml Balance -2350 ml Height & Weight Height: 5'4.00" Weight: 230lbs. 0.0oz. [id number]; 44.48 BMI Method:Stated General Appearance: Chronically ill, Obese, Other (lethargic and difficult to arouse on BiPAP ) HEENT: PERRL/EOMI, Other (chemosis bilaterally) Neck: Full Range of Motion, Normal Inspection, Non Tender, Supple, Carotid Bruit Respiratory: No Accessory Muscle Use (right sided ), No Respiratory Distress, Decreased Breath Sounds (right sided) Cardiovascular: Regular Rate, Rhythm Capillary Refill: Less Than 3 Seconds Gastrointestinal: soft, no organomegaly, tenderness (in RUQ with deep palpation) Extremity: Other (right arm lymphadenopathy ) Neurologic/Psychiatric: Alert, Disoriented Skin: Warm/Dry (hyperpigmented patches throughout left arm and left chest ), Other Lymphatic: No Adenopathy Results Lab Laboratory Tests 05/14/23 03:09 05/15/23 05:09 Assessment/Plan Assessment/Plan 1 RANJANA ALBA MD May 15, 2023 14:58
== END 2023-05-15 14:50 | disposition short-term general hospital (02) | DRG 189 ==
LOC: EDUNIT# 03:01 → ER 03:02 → ICU 05:47
PROVIDERS: ADMIT Internal Medicine; ATTEND Internal Medicine
PROC: 5A09457 Assistance with Respiratory Ventilation, 24-96 Consecutive Hours, Continuous Positive Airway Pressure (ICD-10-PCS; principal; 2023-05-14)
DX: J96.21 Acute and chronic respiratory failure with hypoxia (principal); I50.41 Acute combined systolic (congestive) and diastolic (congestive) heart failure; J91.0 Malignant pleural effusion; R18.0 Malignant ascites; E87.4 Mixed disorder of acid-base balance; J44.1 Chronic obstructive pulmonary disease with (acute) exacerbation; Z68.41 Body mass index [BMI] 40.0-44.9, adult; J96.22 Acute and chronic respiratory failure with hypercapnia; I25.10 Atherosclerotic heart disease of native coronary artery without angina pectoris; E11.649 Type 2 diabetes mellitus with hypoglycemia without coma; E11.42 Type 2 diabetes mellitus with diabetic polyneuropathy; I11.0 Hypertensive heart disease with heart failure; I27.29 Other secondary pulmonary hypertension; E66.01 Morbid (severe) obesity due to excess calories; E78.00 Pure hypercholesterolemia, unspecified; Z79.4 Long term (current) use of insulin; Z85.42 Personal history of malignant neoplasm of other parts of uterus; Z99.81 Dependence on supplemental oxygen; Z95.5 Presence of coronary angioplasty implant and graft; Z79.899 Other long term (current) drug therapy; Z88.1 Allergy status to other antibiotic agents; Z88.5 Allergy status to narcotic agent; Z88.2 Allergy status to sulfonamides; Z91.09 Other allergy status, other than to drugs and biological substances
CPT/HCPCS: 36415; 36600; 71045; 76604; 76705; 80053; 81000; 82140; 82805; 82947; 83605; 83735; 83880; 84100; 85025; 85610; 85730; 87040; 87081; 87088; 87636; 93005; 93306; 94640; 94660